=== PATIENT | female | born 1935 | race Caucasian/White ===

== ENCOUNTER → 2017-08-22 13:24 | Outpatient (CLI) | payer MEDICARE, OTHER, SELFPAY ==
[2017-08-22 15:45] LABS: Absolute Lymphocyte Count 1.92 X10^3/ul (0.83-4.51); Absolute Neutrophil Count 3.4 X10^3/uL (2.0-7.7); Basophil# 0.08 X10^3/uL; Basophil% 1.2 % (0-1); Eosinophil# 0.56 X10^3/uL; Eosinophils% 8.4 % (0-5); Hematocrit 36.3 % (37-47); Hemoglobin 12.1 g/dl (12.0-15.0); Lymphocyte # 1.92 X10^3/ul (4.0); Mean Corp Hgb Conc 33.3 g/gl (32-36); Mean Corpuscular Hgb 29.6 pg (27.0-32.0); Mean Corpuscular Volume 88.8 fL (81-99); Monocyte# 0.66 X10^3/uL; Neutrophil % 51.2 % (47-70); Platelet Count 184 K/mm3 (150-450); RBC Distribution Width CV 12.7 % (11.6-14.6); RBC Distribution Width SD 40.9 fl (35.1-43.9); Red Blood Count 4.09 M/mm3 (4.2-5.4); White Blood Count 6.6 K/mm3 (4.4-11.0)
[2017-08-22 15:53] LABS: ALB/GLOB Ratio 1.1 RATIO (0.9-2.4); AST(SGOT) 23 U/L (15-37); Alanine Aminotransfer ALT/SGPT 25 U/L (13-56); Albumin, Serum 3.5 g/dL (3.2-5.0); Alkaline Phosphatase 48 U/L (45-117); Anion Gap 7 (5-15); BUN 30 mg/dL (7-18); Calcium,Total 8.3 mg/dL (8.5-10.1); Chloride 101 mmol/L (98-107); Creatinine, Serum 1.25 mg/dL (0.55-1.02); EST Glomerular Filtration Rate 44 mL/min (>60); Est Glom Filt Rate - Afr Amer 53 mL/min (>60); Globulin 3.2 g/dL (2.2-4.2); Glucose 281 mg/dL (74-106); Potassium 4.1 mmol/L (3.5-5.1); Protein, Total 6.7 g/dL (6.4-8.2); Sodium Level 137 mmol/L (136-145)
[2017-08-22 16:12] LABS: POSITIVE COUNT NO; POSITIVE DIFFERENTIAL NO; POSITIVE MORPHOLOGY NO
== END ==
PROVIDERS: Family Provider Internal Medicine; PCP Internal Medicine; Visit Provider Internal Medicine Rheumatology
DX: L40.59 Other psoriatic arthropathy (principal); Z79.899 Other long term (current) drug therapy; L40.8 Other psoriasis; M15.9 Polyosteoarthritis, unspecified; M21.40 Flat foot [pes planus] (acquired), unspecified foot; K21.0 Gastro-esophageal reflux disease with esophagitis; F32.9 Major depressive disorder, single episode, unspecified; E78.5 Hyperlipidemia, unspecified; E11.9 Type 2 diabetes mellitus without complications; I25.10 Atherosclerotic heart disease of native coronary artery without angina pectoris; J45.909 Unspecified asthma, uncomplicated; I10 Essential (primary) hypertension
CPT/HCPCS: 36415; 80053; 85025

== ENCOUNTER 2017-11-11 09:09 | Emergency (ER) | payer MEDICARE, OTHER, SELFPAY ==
[2017-11-11 09:09] VITALS: BP 170/73; PULSE 60; RESP 16; TEMP 36.6; O2SAT 99; BMI 21.4
--- NOTE | 2017-11-11 09:40 | ED.VISSUMM ---
- ER Visit Summary Date of Service: 11/11/17 Chief Complaint: Acute on chronic lower back pain History of Present Illness: The patient is a 82 F 3 of both sciatica and spinal stenosis. She has never had back surgery. She also has a history of coronary artery disease with stents ?2, insulin-dependent diabetes and hypertension. She is on Plavix. Patient has chronic daily back pain. She went to her chiropractor earlier this week and was adjusted. Since she was feeling well even though she has pain on a daily basis but the pain just gotten worse since yesterday. She denies any falls or trauma. She denies any dysuria or hematuria. She denies any fever. She sets the same pain she always has just worse. She denies any new weakness or numbness in her lower extremities or upper extremities. She denies any bowel or bladder retention or incontinence. Eyes any abdominal pain. Physical Examination: Female no acute distress. Vital signs are stable and she is afebrile. She does not look septic or toxic. HEENT exam is unremarkable. Neck is nontender. No lymphadenopathy. Lungs clear to auscultation bilaterally. Heart regular rate and rhythm I do not appreciate any murmur at this time. Abdomen is soft and nontender. Normal bowel sounds. Nondistended. No pulsatile mass. She is moving all 4 extremities. They are neurovascularly intact. She has 5 out of 5 telemetry nurse strength in the upper extremities normal sensation. She has 5 out of 5 dorsi and plantar flexion of both lower extremities. They are equal and symmetrical. She has normal touch sensation of both medial thighs and lower legs bilaterally. She has negative straight leg raise bilaterally. Normal motor strength and sensation. There is no signs of acute sciatica. Back exam she is mild reproducible tenderness in the lumbar spine diffusely. There is no redness or warmth. There is no signs of trauma. No ecchymosis or bruising. Is no tenderness over either SI joint. Neurologically she is awake and alert with no focal motor or sensory deficits. Both the upper and lower extremities appear to be neurovascularly intact with no cauda equina or saddle anesthesia. Test Results: None Emergency Department Course and Treatment: Patient be treated with IM morphine and p.o. Zofran. Treatment Plan: Derik exam at 11 AM patient some pain relief. She denied her family had a long discussion. She is currently on tramadol and is running low on her prescription and I will give her additional tramadol prescription. And she will follow with her primary care physician this week. Disposition: discharge Impression: Acute on chronic low back pain History of spinal stenosis History of CAD with cardiac stents, insulin-dependent diabetes and hypertension This note was generated with [employer] dictation software. It may contain incorrect words, spelling, and punctuation that were not noted in review of the chart prior to signing ED Disposition - Plan for ED Patient: Chief Complaint: Back Referrals: Zulma Corral MD [Primary Care Provider] -
[2017-11-11] MEDS: morphine 8 MG/ML Syringe IV (09:45)
[2017-11-11] MEDS: Ondansetron ODT 4 MG Tablet PO (09:45)
--- NOTE | 2017-11-11 11:09 | ED.DEP ---
ED Disposition - Plan for ED Patient: Disposition: Home or Assisted Living Chief Complaint: Back Instructions: ED Neck Back Pain General Prescriptions: traMADol [Ultram] 50 mg PO Q4H PRN PRN #30 tab PRN Reason: Pain Referrals: Zulma Corral MD [Primary Care Provider] - As soon as possible Additional Instructions: Usual or tramadol as needed for pain you may use 1 pill up to every 4 hours as needed. Follow-up your primary care physician if pain not getting better. Return to the ER if you have significant leg weakness, fever or bowel or bladder incontinence.
[2017-11-11 11:30] VITALS: BP 184/66; PULSE 67; RESP 17; O2SAT 94; O2SAT 95
== END 2017-11-11 11:33 | disposition home or self-care (01) ==
PROVIDERS: Emergency Provider Emergency Medicine; Family Provider Internal Medicine; PCP Internal Medicine
DX: G89.29 Other chronic pain (principal); M54.5 Low back pain; I25.10 Atherosclerotic heart disease of native coronary artery without angina pectoris; Z95.5 Presence of coronary angioplasty implant and graft; E11.9 Type 2 diabetes mellitus without complications; I10 Essential (primary) hypertension; Z79.4 Long term (current) use of insulin
CPT/HCPCS: 99282

== ENCOUNTER → 2018-02-08 06:48 | Outpatient (CLI) | payer MEDICARE, OTHER, SELFPAY ==
[2018-02-08 15:31] LABS: Bedside Glucose 181 mg/dL (70-110)
--- NOTE | 2018-02-08 20:31 | STRESSREP ---
Stress Test Report Date: 02/08/2018 Procedure: Pharmacologic stress nuclear imaging study Indications: Chest pain; CAD; PCI Consent: Per the patient Procedure: The patient underwent pharmacologic (Regadenoson) evaluation with a peak heart rate of 91 beats per minute (66 predicted maximal heart rate) and a peak blood pressure of 160/84 mmHg. The baseline ECG demonstrated sinus bradycardia. The peak pharmacologic ECG demonstrated no obvious ECG changes. There were no cardiac dysrhythmias pretest, during pharmacologic infusion, or recovery. There was no complaint of chest discomfort during pharmacologic infusion or recovery. The examination was discontinued secondary to completion of protocol. Impression: 1. Pharmacologic (Regadenoson) evaluation 2. Peak pharmacologic ECG with no obvious ECG changes. 3. There were no cardiac dysrhythmias pretest, during pharmacologic infusion, or recovery 4. Nuclear images pending Myocardial perfusion imaging study: Technique: The patient was injected with 10.6 millicuries of technetium 99m Cardiolite and subsequently rest SPECT Cardiolite nuclear imaging was obtained in the horizontal long, vertical long, and short axis views. The patient underwent pharmacologic (Regadenoson) evaluation with a peak heart rate of 91 beats per minute (66 % percent predicted maximal heart rate) and a peak blood pressure of 160/84 mmHg. The patient was injected with 32.2 millicuries of technetium 99m Cardiolite and subsequently stress SPECT Cardiolite nuclear imaging was obtained in the horizontal long, vertical long, and short axis views. A gated Cardiolite study at peak stress was obtained. Interpretation: Rest and stress SPECT Cardiolite nuclear imaging status post realignment, normalization, and attenuation correction demonstrate at rest relative uniform tracer uptake. Status post stress there is a small area of diminished tracer uptake near the lateral apical segments. There are similar type findings on the resting and stress polar map images.. There is end systolic thickening and brightening. The gated Cardiolite study demonstrates myocardial thickening and inward wall motion. The reported LVEF is 80 %. Impression: 1. Rest and stress SPECT cardio light nuclear imaging demonstrate myocardial perfusion changes ventrally compatible with a small area of myocardial ischemia in the lateral apical distribution, however, the effects of physiologic apical thinning cannot necessarily be excluded. 2. The gated Cardiolite study reports an LVEF of 80 %. This note was generated with [employer] software. It may contain incorrect words, spelling, and punctuation that were not noted in checking the note before signing.
== END ==
PROVIDERS: Family Provider Internal Medicine; PCP Internal Medicine; Visit Provider Internal Medicine Cardiovascular Disease
DX: I25.10 Atherosclerotic heart disease of native coronary artery without angina pectoris (principal)
CPT/HCPCS: 78452; 82962; 93017; A9500; A4216; J2785

== ENCOUNTER → 2018-02-13 15:37 | Outpatient (CLI) | payer MEDICARE, OTHER, SELFPAY ==
--- NOTE | 2018-02-13 15:45 | RAD_ITS ---
STUDY: X-RAY CHEST REASON FOR EXAM: Female, 82 years old. Abnormal stress test TECHNIQUE: PA and lateral views of the chest. COMPARISON: Prior study of 04/10/2008 FINDINGS: The lungs are clear and expanded. There is no demonstrated pleural abnormality. Normal size heart. Normal mediastinum and jackeline. Normal visualized pulmonary arteries. There are calcified plaques of the thoracic aorta. There is a moderately severe thoracolumbar dextroscoliosis. There are diffuse degenerative changes of the visualized thoracolumbar spine. There are degenerative changes of the shoulder joints. There is no demonstrated abnormality of the visualized soft tissue structures of the upper abdomen. RAD/Chest PA and Lateral IMPRESSION: 1. Moderately severe thoracolumbar dextroscoliosis. Diffuse degenerative changes of the thoracic and lumbar spine. 2. Calcified plaques of the aortic arch. 3. Degenerative changes of the shoulder joints. Electronically Signed: Yoni Ricketts MD at 16:30 EDT , Service support ,
[2018-02-13 17:48] LABS: International Normalized Ratio 1.1; Prothrombin Time (Protime)PT. 13.7 SECONDS (11.7-14.9)
[2018-02-13 17:49] LABS: Hematocrit 39.2 % (37-47); Hemoglobin 13.3 g/dl (12.0-15.0); Mean Corp Hgb Conc 33.9 g/gl (32-36); Mean Corpuscular Hgb 30.2 pg (27.0-32.0); Mean Corpuscular Volume 89.1 fL (81-99); Mean Platelet Vol. 12.1 fl (6.2-12.0); Partial Thromboplast Time 34.4 Seconds (24.1-36.2); Platelet Count 196 K/mm3 (150-450); RBC Distribution Width CV 12.8 % (11.6-14.6); RBC Distribution Width SD 41.4 fl (35.1-43.9); White Blood Count 7.8 K/mm3 (4.4-11.0)
[2018-02-13 17:52] LABS: Scan Indicated on CBC? Y/N NO
[2018-02-13 18:10] LABS: Anion Gap 6 (5-15); BUN 22 mg/dL (7-18); BUN/Creat Ratio 22.8 RATIO (10-20); Calcium,Total 9.1 mg/dL (8.5-10.1); Chloride 103 mmol/L (98-107); Creatinine, Serum 0.97 mg/dL (0.55-1.02); EST Glomerular Filtration Rate 59 mL/min (>60); Est Glom Filt Rate - Afr Amer 71 mL/min (>60); Glucose 129 mg/dL (74-106); Potassium 4.3 mmol/L (3.5-5.1); Sodium Level 139 mmol/L (136-145)
== END ==
PROVIDERS: Family Provider Internal Medicine; PCP Internal Medicine; Referring Provider Internal Medicine Cardiovascular Disease; Visit Provider Internal Medicine Cardiovascular Disease
DX: I25.10 Atherosclerotic heart disease of native coronary artery without angina pectoris (principal); R94.39 Abnormal result of other cardiovascular function study; Z95.5 Presence of coronary angioplasty implant and graft
CPT/HCPCS: 36415; 71046; 80048; 85027; 85610; 85730

== ENCOUNTER 2018-02-21 07:49 | Day surgery (SDC) | payer MEDICARE, OTHER, SELFPAY ==
[2018-02-20 12:15] VITALS: BMI 21.2
--- NOTE | 2018-02-21 09:55 | HP.PCM_ITS ---
Problem List (1) Abnormal stress test Status: Acute (2) Carotid artery disease Status: Chronic (3) Presence of stent in coronary artery Status: Chronic Comment: PTCA/Stent of the prox LAD and 1st Diagonal 02/15/00 (4) Coronary artery anomaly Status: Acute (5) Carotid artery disease Status: Acute (6) Hyperlipidemia Status: Chronic Qualifiers: (7) Hypertension Status: Chronic Qualifiers: (8) Type 2 diabetes mellitus, with long-term current use of insulin Status: Chronic Qualifiers: History of Present Illness Date of Admission: 02/21/18 The patient is a 82 year old white female with a past cardiovascular history which has included underlying CAD, status post LAD PCI, status post diagonal branch PCI, congenital coronary anomaly, hyperlipidemia, hypertension, diabetes mellitus, who has been undergoing evaluation and care for concerns of underlying back discomfort which takes my breath away as well as other episodes of shortness of breath and dyspnea with exertion, and an abnormal pharmacologic stress nuclear imaging study. Since her last outpatient cardiovascular visit on 01/11/2018 she underwent a pharmacologic stress nuclear imaging study. Based upon the study she had what appeared to be a small area of myocardial ischemia in the lateral apical distribution although the effects of physiologic apical thinning could not be excluded. Her gated LVEF was reported at 80%. Based upon her cardiovascular history, her concerns, and her abnormal pharmacologic stress nuclear imaging study it was elected to proceed with further evaluation with diagnostic cardiac catheterization. This could be compared to her previous diagnostic cardiac catheterization reports from [facility] from January and March 2000. She has denied orthopnea or PND. There is been no ongoing issues of peripheral pitting edema. There has been no near syncope or syncope. [] Past Medical History Allergies/Adverse Reactions: Allergies metronidazole [From Flagyl] Allergy (Verified 02/20/18 12:17) Other Metronidazole HCl [From Flagyl] Allergy (Verified 02/20/18 12:17) Other oxycodone HCl [From OxyContin] Allergy (Verified 02/20/18 12:17) Other Home Medications: Ambulatory Orders Medication Instructions Recorded Clopidogrel Bisulfate [Plavix] 75 mg PO DAILY 08/23/13 simvastatin 40 mg tablet 40 mg PO QPM #30 tab 05/02/17 albuterol sulfate HFA 90 2 puff INHALATION Q6H 05/30/17 mcg/actuation aerosol inhaler calcium carbonate-vitamin D3 600 1 tab PO DAILY 05/30/17 mg-125 unit tablet fluticasone 50 mcg/actuation nasal 50 mcg INTRANASAL QDAY PRN 05/30/17 spray,suspension insulin aspart U- 100 100 unit/mL 5 unit SC TID ml 05/30/17 subcutaneous pen insulin syringe-needle U-100 half See Dose Instructions .ROUTE 05/30/17 unit marking 0.3 mL 31 gauge x .MEDSUPPLY #100 ea 10/04 multivitamin tablet 1 tab PO QDAY 05/30/17 nitroglycerin 0.4 mg sublingual 0.4 mg SUBLINGUAL Q5M PRN 05/30/17 tablet pantoprazole 40 mg tablet,delayed 40 mg PO QDAY 05/30/17 release tramadol 50 mg tablet 50 mg PO TID PRN tab 05/30/17 insulin detemir (U-100) 100 15 unit SC QPM 06/13/17 unit/mL (3 mL) subcutaneous pen isosorbide mononitrate ER 30 mg 15 mg PO QAM #45 tab 07/05/17 tablet,extended release 24 hr citalopram 10 mg tablet 5 mg PO DAILY tab 10/19/17 leflunomide 10 mg tablet 5 mg PO DAILY tab 10/19/17 losartan 100 mg tablet 50 mg PO BID tab 11/08/17 blood sugar diagnostic strips See Dose Instructions .ROUTE 12/26/17 .MEDSUPPLY #120 ea metoprolol succinate ER 25 mg 12.5 mg PO BID tab 01/11/18 tablet,extended release 24 hr aspirin 81 mg tablet,delayed 81 mg PO DAILY 02/12/18 release Past Medical History (Chronic Problems): Chronic Problems (Last Reviewed 01/11/18 @ 13:30 by Katelyn Gomez) Carotid artery disease (Chronic) Presence of stent in coronary artery (Chronic ~02/15/00) PTCA/Stent of the prox LAD and 1st Diagonal 02/15/00 Atherosclerotic heart disease of [place] coronary artery without angina pectoris (Chronic) PTCA/Stent of the prox LAD and 1st Diagonal 02/15/00 Hyperlipidemia (Chronic) Type 2 diabetes mellitus, with long-term current use of insulin (Chronic) Hypertension (Chronic) Surgical History: angioplasty, herniorrhaphy Lives: Alone Smoking Status: Former smoker Alcohol: None Drugs: None Review of Systems - Review of Systems General: Denies: Fever, Night Sweats, Fatigue Cardiovascular: Reports: Shortness of Breath. Denies: Chest Discomfort, Orthopnea, PND, Peripheral Edema, Palpitations, Lightheadedness, Dizziness, Near Syncope, Syncope Respiratory: Reports: Shortness of Breath. Denies: Cough, Sputum Production, Hemoptysis Gastrointestinal: Denies: Hematemesis, Hematochezia, Melena Genitourinary: Denies: Dysuria, Hematuria Skin: Denies: Rash Subjectve: Is a pleasant 82-year-old white female who appears to be resting comfortably in no acute distress. Objective: Weight: 105 lb Body Mass Index (BMI) 21.2 General: Awake, Alert, Oriented x 3, Cooperative, No Acute Distress HEENT: Atraumatic, Normocephalic, PERRL, EOMI, Sclera Non Icteric Oral: Moist Mucosa Neck: Supple, Good ROM, No JVD Lungs: Clear to auscultation Cardiovascular: Regular Rhythm, Normal S1, Normal S2 Abdomen: Bowel Sounds Present, Soft, Non Tender Extremities: No Cyanosis, No Clubbing, No edema Neurological: No Focal Motor or Sensory Deficit Psych/Mental Status: Appropriate, Normal Affect VTE Information - Inpt Only VTE Present on Admission: No VTE Mechan Device Prophylaxis: None VTE Pharm Prophylaxis ordered?: No Reason prophylaxis not ordered:: Procedure Not Indicated - The patient is undergoing outpatient evaluation for her cardiovascular disease with diagnostic cardiac catheterization. Depending upon the patient's clinical course and findings consideration will be given as to whether she is a candidate for venous thromboembolism prophylaxis. Rhythm: Sinus rhythm EKG: Sinus rhythm; leftward axis; poor R wave progression; nonspecific wave abnormality ECHO: 11/12/2007: Technically limited study: Normal left ventricular size and systolic function: LVEF 65%: Mild stage I diastolic dysfunction: Moderate concentric LVH: Normal pulmonary artery pressure: Unchanged from 08/08/2006 Stress Test: As noted above Cardiac Cath: 03/24/2000: [facility]: Single-vessel disease with normal function of the left ventricle; stented segments of the diagonal branch enlarged given the appearance of a greater degree of stenosis in the diagonal just prior to the stent with the percent stenosis likely less than 50%; additional comments that the LAD proximal stented segment with no evidence of restenosis-plaque disease- nonobstructive; diagonal branch #1 lesion 25-50% luminal narrowing-stented segment-minimal plaque buildup; LAD after septal emergency medicine physician assistant with 25% stenosis, mid 65% [id number]% luminal narrowing-intramyocardial bridging segment; RCA with no angiographically definable disease PCI: 02/15/2000: [facility]: LAD PCI/stent and diagonal branch PCI CXR: 02/13/2018: IMPRESSION: 1. Moderately severe thoracolumbar dextroscoliosis. Diffuse degenerative changes of the thoracic and lumbar spine. 2. Calcified plaques of the aortic arch. 3. Degenerative changes of the shoulder joints. Assessment/Plan 1. Abnormal stress test The patient does have an abnormal pharmacologic stress test. This, in conjunc tion with her history, her concerning symptoms, it was elected to continue medical management and proceed with further evaluation with diagnostic cardiac catheterization. The procedure and risks have been discussed with her and she is agreeable to this approach. 2. CAD status post remote LAD PTCA/stent/diagonal branch PCI The patients removed procedure was performed at [facility] in January and March 2000. She has not required invasive evaluation care since that time. She has continued medical management and follow-up. However based upon her ongoing concerns and objective findings she will proceed with further evaluation with diagnostic cardiac catheterization. 3. Congenital coronary anomaly Based upon the previous cardiac catheterization reports there was concern the patient had congenital coronary anomaly with AV fistula. She did not require additional evaluation or care. 4. Peripheral arterial occlusive disease/carotid artery disease Patient does have an element of carotid artery disease. She has been followed noninvasively with carotid artery duplex studies. She is continued medical management. 5. Hyperlipidemia The patient will continue risk factor modification and medical management. 6. Hypertension The patient's blood pressures been followed. Her medications have been adjusted over time to assist with blood pressure control. 7. Diabetes mellitus The patient will continue evaluation care per her primary care physician. This note was generated with [employer] software. It may contain incorrect words, spelling, and punctuation that were not noted in checking the note before signing.
--- NOTE | 2018-02-22 10:41 | CL.D_ITS ---
Patient Name: ESTUARDO MOODY Study Date: 02/21/2018 Performing: Christopher Doty MD Ht: 59 inches 150 cm : 1935 Wt: 106 lbs 48 kg Age: 82 Gender: female BSA: 1.41 PROCEDURE(S) PERFORMED HC11-JGU/COR/LV CLINICAL PROFILE AND INDICATIONS Indications: Suspected CAD Heart Failure: None Stress/Imaging Stress Test w/SPECT MPI: Yes Result: PositiveStress Test with SPECT MPI: Positive Angina Classification Anginal Classification w/in 2 Weeks: CCS III CAD Presentations: Other: chest pain; shortness of breath; fatigue CONCLUSIONS Elevated Left Ventricular End Diastolic Pressure Normal LV size, wall motion,and systolic function LVEF: by LV gram 55 % Congenital Coronary Anomaly: AV Fistulas RECOMMENDATIONS Risk factor modification Medical therapy Staged percutaneous intervention DESCRIPTION OF PROCEDURE The patient arrived to the procedure lab. The risks and benefits of the procedure as well as a full d escription of our services here and current unavailability of surgical backup were fully explained to the patient and/or their significant other prior to the catheterization. The Timeout was completed, verifying the correct patient and procedure. The patient's procedural site was prepped and draped in the usual fashion. Local anesthetic was given subcutaneously to right groin region with Lidocaine 2%. Using a modified Seldinger technique, arterial access was obtained via the right femoral artery, a 4 Fr sheath was inserted Left Coronary Artery selective angiography was performed in multiple views us ing a 4 Fr. JL5 catheter. Right Coronary Artery selective angiography was then performed in multiple views using a 4 Fr. 3DRC catheter. Left Ventriculography was performed in CORDOVA projection using a 4 Fr . Pigtail catheter. LV to AO pullback pressures were then recorded.The arterial sheath was pulled and manual compression applied until hemostasis is achieved. CORONARY ANGIOGRAPHY DOMINANCE: Co- Dominant LEFT HEART ASSESSMENT Left Ventricular Ejection Fraction: by LV Gram 55 % Normal LV wall motion Elevated Left Ventricular End Diastolic Pressure LVEDP: 29 mmHg LEFT MAIN: Angiographically normal LEFT ANTERIOR DECENDING ARTERY: PROX LAD: Previously placed stent is patent with mild luminal irregularities MID LAD: 85 % Stenosis DISTAL LAD: 75 % Stenosis DIAGONAL 1: Proximal - Previously placed stent is patent with mild luminal irregularities CIRCUMFLEX ARTERY: Mild luminal irregularities OM 1: Proximal - Eccentric: 50 % Stenosis, Mid - 50-75 % Stenosis RIGHT CORONARY ARTERY: Mild luminal irregularities AORTIC ROOT: Angiographically normal COMPLICATIONS No Complications PROCEDURE MEDICATIONS Versed 0.5 mg IV Versed 0.5 mg IV Oxygen: 2 L/min via nasal cannula Baby Aspirin (81mg) 1 Tabs PO @ 02/21/2018 08:41:21 Labetalol 5 mg 02/21/2018 08:41:31 Labetalol 5 mg 02/21/2018 08:41:31 Plavix 75 mg PO 02/21/2018 08:41:31 SUMMARY OF HEMODYNAMIC DATA Time AIR REST ECG 08:37:20 ECG 10:30:21 AO 158/62 (99) SA 10:46:10 LV 179/22, 42 10:53:39 LV 184/22, 29 10:53:46 AO 151/83 (116) 10:54:43 LVp 198/0, 21 10:55:37 AOp 196/72 (120) 10:55:42 Signed By Christopher Doty MD On 02/21/2018 18:31:23 Christopher Doty MD
== END 2018-02-21 16:13 | disposition home or self-care (01) ==
LOC: CLSP 07:50
PROVIDERS: Family Provider Internal Medicine; PCP Internal Medicine; Referring Provider Internal Medicine Cardiovascular Disease; Visit Provider Internal Medicine Cardiovascular Disease
DX: R94.39 Abnormal result of other cardiovascular function study (principal); E78.5 Hyperlipidemia, unspecified; I10 Essential (primary) hypertension; E11.9 Type 2 diabetes mellitus without complications; Z95.5 Presence of coronary angioplasty implant and graft; I25.10 Atherosclerotic heart disease of native coronary artery without angina pectoris; Z87.891 Personal history of nicotine dependence; Z79.4 Long term (current) use of insulin; I77.9 Disorder of arteries and arterioles, unspecified
CPT/HCPCS: 93458; 99152; 99153; J7040; C1769; C1894; Q9967

== ENCOUNTER → 2018-02-23 14:33 | Outpatient (CLI) | payer MEDICARE, OTHER, SELFPAY ==
[2018-02-23 15:00] LABS: Hematocrit 38.9 % (37-47); Hemoglobin 12.7 g/dl (12.0-15.0); Mean Corp Hgb Conc 32.6 g/gl (32-36); Mean Corpuscular Hgb 28.9 pg (27.0-32.0); Mean Corpuscular Volume 88.6 fL (81-99); Mean Platelet Vol. 10.9 fl (6.2-12.0); Platelet Count 194 K/mm3 (150-450); RBC Distribution Width CV 12.9 % (11.6-14.6); RBC Distribution Width SD 41.3 fl (35.1-43.9); Red Blood Count 4.39 M/mm3 (4.2-5.4); Scan Indicated on CBC? Y/N NO; White Blood Count 8.5 K/mm3 (4.4-11.0)
[2018-02-23 15:07] LABS: International Normalized Ratio 1.1; Prothrombin Time (Protime)PT. 14.2 SECONDS (11.7-14.9)
[2018-02-23 15:21] LABS: Anion Gap 6 (5-15); BUN 28 mg/dL (7-18); BUN/Creat Ratio 21.5 RATIO (10-20); Calcium,Total 8.8 mg/dL (8.5-10.1); Chloride 99 mmol/L (98-107); EST Glomerular Filtration Rate 42 mL/min (>60); Est Glom Filt Rate - Afr Amer 50 mL/min (>60); Glucose 228 mg/dL (74-106); Potassium 4.5 mmol/L (3.5-5.1); Sodium Level 134 mmol/L (136-145)
== END ==
PROVIDERS: Family Provider Internal Medicine; PCP Internal Medicine; Referring Provider Internal Medicine Cardiovascular Disease; Visit Provider Internal Medicine Cardiovascular Disease
DX: I25.10 Atherosclerotic heart disease of native coronary artery without angina pectoris (principal)
CPT/HCPCS: 36415; 80048; 85027; 85610

== ENCOUNTER 2018-02-26 10:33 | Inpatient (IN) | payer MEDICARE, OTHER, SELFPAY ==
[2018-02-26] VITALS (9 sets, daily range): BP systolic 142–188; BP diastolic 66–76; PULSE 49–76; RESP 11–16; TEMP 36.5–36.7; O2SAT 94–97; BMI 20.5
--- NOTE | 2018-02-26 10:52 | EKG12_ITS ---
Test Reason : Blood Pressure : / mmHG Vent. Rate : 056 BPM Atrial Rate : 056 BPM P-R Int : 156 ms QRS Dur : 074 ms QT Int : 406 ms P-R-T Axes : 041 -18 030 degrees QTc Int : 391 ms Sinus bradycardia Septal infarct , age undetermined T wave abnormality, consider anterolateral ischemia Abnormal ECG Confirmed by JUAN ALLRED, ROSA ([id number]), editorial specialist DONTAE MENDOZA ([id number]) on 03/01/2018 1:44:58 PM Referred By: Galo Ortiz Confirmed By:ROSA MARTINEZ MD
--- NOTE | 2018-02-26 10:55 | RAD_ITS ---
STUDY: X-RAY CHEST REASON FOR EXAM: Female, 82 years old. Chest pain TECHNIQUE: Portable chest COMPARISON: 02/13/2018. FINDINGS: Hyperlucency and hyperinflation of the lungs consistent with underlying COPD. Normal cardiomediastinal silhouette, jackeline and pleural margins. No acute osseous or upper abdominal process. Osteopenia, scoliosis and multilevel spondylosis. RAD/Chest 1 View (Portable) IMPRESSION: Stable chest compared to prior imaging. 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 Electronically Signed: Praful Cadena, at 11:23 EDT Tel , Service support ,
--- NOTE | 2018-02-26 11:05 | ED.VISSUMM ---
- ER Visit Summary Date of Service: 02/26/18 Chief Complaint: Chest pain, epigastric pain History of Present Illness: The patient is a 82 F with known history of coronary artery disease. Patient is scheduled to have 2 stents placed this week. She has had problems with shortness of breath. She states she had occasional epigastric pain that has worsened over the past couple of days. It is worse in the morning and then seems to improve throughout the day. She did take tramadol prior to arrival denies any pain currently. Patient does states she has severe spinal stenosis and wakes up with significant back pain in the morning as well. She feels nauseated but is not sure if it is because of her heart, stomach, or her back. Physical Examination: Blood pressure is 142/76, temperature 98.1, heart rate 63, respiratory rate 15, socks 96% on room air. Patient is sitting upright in bed no acute distress. Head neck examination is unremarkable. Heart is regular rate and rhythm. Lung sounds are clear. Abdomen is soft with focal tenderness in the epigastric region. There is no guarding or rebound. Active bowel sounds are noted. Test Results: EKG is sinus bradycardia at 56 bpm. There are mild T inversions in the lateral leads that looks grossly unchanged compared to prior. CBC is unremarkable. Chemistry studies reveal glucose of 286, BUN 25, creatinine 1.05. LFTs and lipase are normal. Troponin is less than 0.015. Chest x-ray shows COPD changes are stable from prior. Emergency Department Course and Treatment: Patient was given 3 baby aspirin here as she had only taken one this morning. She has remained pain-free throughout her ER stay. I spoke with Dr. Pritchard as well as Dr. Doty. I spoke with hospitalist. Patient will be admitted. Treatment Plan: [] Disposition: Admit Impression: 1. Epigastric pain 2. Coronary artery disease This note was generated with [employer] dictation software. It may contain incorrect words, spelling, and punctuation that were not noted in review of the chart prior to signing ED Disposition - Plan for ED Patient: Chief Complaint: Chest Pain Referrals: Zulma Corral MD [Primary Care Provider] -
[2018-02-26 11:10] LABS: Absolute Lymphocyte Count 1.24 X10^3/ul (0.83-4.51); Absolute Neutrophil Count 3.9 X10^3/uL (2.0-7.7); Basophil# 0.05 X10^3/uL; Basophil% 0.8 % (0-1); Eosinophils% 8.1 % (0-5); Hemoglobin 12.4 g/dl (12.0-15.0); Lymphocyte # 1.24 X10^3/ul (4.0); Mean Corp Hgb Conc 33.5 g/gl (32-36); Mean Corpuscular Hgb 29.4 pg (27.0-32.0); Mean Corpuscular Volume 87.7 fL (81-99); Mean Platelet Vol. 10.9 fl (6.2-12.0); Monocyte# 0.53 X10^3/uL; Monocyte% 8.6 % (0-10); Neutrophil # 3.86 X10^3/uL (2.7-7.7); Neutrophil % 62.3 % (47-70); POSITIVE COUNT NO; POSITIVE DIFFERENTIAL NO; POSITIVE MORPHOLOGY NO; Platelet Count 173 K/mm3 (150-450); RBC Distribution Width CV 12.7 % (11.6-14.6); RBC Distribution Width SD 40.5 fl (35.1-43.9); Red Blood Count 4.22 M/mm3 (4.2-5.4); White Blood Count 6.2 K/mm3 (4.4-11.0)
[2018-02-26] MEDS: 0.9% Normal Saline 1,000 ML 15 ML IV (11:11)
[2018-02-26] MEDS: Aspirin 81 MG TAB.CHEW 243 MG PO (11:11)
[2018-02-26 11:29] LABS: AST(SGOT) 16 U/L (15-37); Alanine Aminotransfer ALT/SGPT 17 U/L (13-56); Albumin, Serum 3.3 g/dL (3.2-5.0); Alkaline Phosphatase 50 U/L (45-117); Anion Gap 7 (5-15); BUN 25 mg/dL (7-18); BUN/Creat Ratio 23.8 RATIO (10-20); Bilirubin, Direct 0.14 mg/dL (0.00-0.30); Calcium,Total 9.5 mg/dL (8.5-10.1); Chloride 100 mmol/L (98-107); Creatinine, Serum 1.05 mg/dL (0.55-1.02); EST Glomerular Filtration Rate 53 mL/min (>60); Est Glom Filt Rate - Afr Amer 64 mL/min (>60); Estimated Creatinine Clearance 29.48 ml/min; Globulin 3.6 g/dL (2.2-4.2); Glucose 286 mg/dL (74-106); Lipase 126 U/L (73-393); Potassium 4.5 mmol/L (3.5-5.1); Protein, Total 6.9 g/dL (6.4-8.2); Sodium Level 135 mmol/L (136-145)
--- NOTE | 2018-02-26 12:47 | EKG12_ITS ---
Test Reason : ADMISSION EKG Blood Pressure : / mmHG Vent. Rate : 055 BPM Atrial Rate : 055 BPM P-R Int : 162 ms QRS Dur : 078 ms QT Int : 454 ms P-R-T Axes : 008 -12 038 degrees QTc Int : 434 ms Sinus bradycardia Septal infarct , age undetermined T wave abnormality, consider anterolateral ischemia Abnormal ECG When compared with ECG of 26-FEB-2018 10:38, MANUAL COMPARISON REQUIRED, DATA IS UNCONFIRMED Confirmed by TENZIN ALLRED, ALEXANDRI[place] ([id number]), digital editor DONTAE MENDOZA ([id number]) on 02/28/2018 3:36:38 PM Referred By: Galo Ortiz Confirmed By:ALEXANDRIA DAVE MD
[2018-02-26 13:50] LABS: Bedside Glucose 215 mg/dL (70-110)
[2018-02-26] MEDS: Insulin Lispro 100 UNIT/ML INSULN.PEN SC ×3 (14:43→21:40)
[2018-02-26 18:11] LABS: Bedside Glucose 270 mg/dL (70-110)
--- NOTE | 2018-02-26 18:52 | PCM.CONS.C ---
Problem List (1) CAD (coronary artery disease) Status: Acute Qualifiers: Coronary Disease-Associated Artery/Lesion type: [place] artery [place] vs. transplanted heart: [place] heart Associated angina: with unspecified angina Qualified Code(s): I25.119 - Atherosclerotic heart disease of [place] coronary artery with unspecified angina pectoris (2) Presence of stent in coronary artery Status: Chronic Comment: PTCA/Stent of the prox LAD and 1st Diagonal 02/15/00 (3) Hyperlipidemia Status: Chronic Qualifiers: (4) Hypertension Status: Chronic Qualifiers: (5) Type 2 diabetes mellitus, with long-term current use of insulin Status: Chronic Qualifiers: Reason for Consult Date of Consultation: 02/26/18 History of Present Illness: The patient is a 82 year old white female with a past cardiovascular history of underlying CAD, status post LAD PCI-remote, status post diagonal branch PCI-remote, congenital coronary anomaly with AV fistula, hyperlipidemia, hypertension, diabetes mellitus, who has been undergoing outpatient cardiovascular evaluation care based on concerns of underlying back discomfort which she previously reported as takes my breath away as well as other episodes of chest/epigastric discomfort, shortness of breath, dyspnea with exertion, with findings of an abnormal pharmacologic stress nuclear imaging study and subsequently findings during repeat cardiac catheterization of progression of underlying [place] vessel disease following the LAD and OM system who is pending staged percutaneous intervention who presents today for concerns of chest/epigastric discomfort. She states while waiting for her staged intervention she is noted resting chest/epigastric discomfort. She felt this was reminiscent of symptoms she experienced prior to her initial diagnosis and PCI. She used nitroglycerin sublingual with partial relief. As her symptoms persisted she was brought by her family to the hospital for further evaluation. She notes she has had tenderness in the epigastric area. She is denied radiation of her symptoms. She has had associated nausea. She has had continued shortness of breath/dyspnea with exertion. She has denied orthopnea, PND, peripheral pitting edema, near syncope and syncope. He was brought into the hospital. She has had troponin I levels which have been negative. Her ECG is demonstrated sinus rhythm with poor R wave progression with septal [place] pattern of indeterminate age cannot be excluded and T wave abnormality potentially compatible with myocardial ischemia in the anterolateral distribution. [] Past Medical History Allergies/Adverse Reactions: Allergies metronidazole [From Flagyl] Allergy (Verified 02/20/18 12:17) Other Metronidazole HCl [From Flagyl] Allergy (Verified 02/20/18 12:17) Other oxycodone HCl [From OxyContin] Allergy (Verified 02/20/18 12:17) Other Home Medications: Ambulatory Orders Medication Instructions Recorded Clopidogrel Bisulfate [Plavix] 75 mg PO DAILY 08/23/13 simvastatin 40 mg tablet 40 mg PO QPM #30 tab 05/02/17 albuterol sulfate HFA 90 2 puff INHALATION Q6H 05/30/17 mcg/actuation aerosol inhaler calcium carbonate-vitamin D3 600 1 tab PO DAILY 05/30/17 mg-125 unit tablet fluticasone 50 mcg/actuation nasal 50 mcg INTRANASAL QDAY PRN 05/30/17 spray,suspension insulin aspart U- 100 100 unit/mL 5 unit SC TID ml 05/30/17 subcutaneous pen insulin syringe-needle U-100 half See Dose Instructions .ROUTE 05/30/17 unit marking 0.3 mL 31 gauge x .MEDSUPPLY #100 ea 10/04 multivitamin tablet 1 tab PO QDAY 05/30/17 pantoprazole 40 mg tablet,delayed 40 mg PO QDAY 05/30/17 release tramadol 50 mg tablet 50 mg PO TID PRN tab 05/30/17 insulin detemir (U-100) 100 15 unit SC QPM 06/13/17 unit/mL (3 mL) subcutaneous pen citalopram 10 mg tablet 5 mg PO DAILY tab 10/19/17 leflunomide 10 mg tablet 5 mg PO DAILY tab 10/19/17 losartan 100 mg tablet 50 mg PO BID tab 11/08/17 blood sugar diagnostic strips See Dose Instructions .ROUTE 12/26/17 .MEDSUPPLY #120 ea metoprolol succinate ER 25 mg 12.5 mg PO BID tab 01/11/18 tablet,extended release 24 hr aspirin 81 mg tablet,delayed 81 mg PO DAILY 02/12/18 release isosorbide mononitrate ER 30 mg 30 mg PO QAM #90 tab 02/26/18 tablet,extended release 24 hr nitroglycerin 0.4 mg sublingual 0.4 mg SUBLINGUAL Q5M PRN #25 tab 02/26/18 tablet Past Medical History (Chronic Problems): Chronic Problems (Last Reviewed 01/11/18 @ 13:30 by Katelyn Gomez) Carotid artery disease (Chronic) Presence of stent in coronary artery (Chronic ~02/15/00) PTCA/Stent of the prox LAD and 1st Diagonal 02/15/00 Hyperlipidemia (Chronic) Type 2 diabetes mellitus, with long-term current use of insulin (Chronic) Hypertension (Chronic) Surgical History: angioplasty, herniorrhaphy Lives: Alone Smoking Status: Former smoker Alcohol: None Drugs: None Review of Systems - Review of Systems General: Denies: Fever, Night Sweats, Fatigue Cardiovascular: Reports: Chest Discomfort, Chest Discomfort at Rest, Shortness of Breath, Shortness of Breath with Exertion. Denies: Orthopnea, PND, Peripheral Edema, Palpitations, Lightheadedness, Dizziness, Near Syncope, Syncope Respiratory: Reports: Shortness of Breath. Denies: Cough, Sputum Production, Hemoptysis Gastrointestinal: Reports: Epigastric Discomfort, Nausea. Denies: Hematemesis, Hematochezia, Melena Genitourinary: Denies: Dysuria, Hematuria Skin: Denies: Rash Subjectve: This is an 82-year-old white female who appears to be resting comfortably at the moment in no acute distress. Objective: Vital Signs Temp Pulse Resp BP Pulse Ox 97.7 F L 60 16 188/75 H 94 02/26/18 13:07 02/26/18 15:19 02/26/18 13:07 02/26/18 13:07 02/26/18 13:07 Oxygen Delivery Method Room Air Weight: 99 lb 3.328 oz Body Mass Index (BMI) 20.0 Intake and Output for Last 24 Hours 02/24/18 02/25/18 02/26/18 23:59 23:59 23:59 Intake Total 774 / 774 Balance 774 / 774 General: Awake, Alert, Oriented x 3, Cooperative, No Acute Distress HEENT: Atraumatic, Normocephalic, PERRL, EOMI, Sclera Non Icteric Oral: Moist Mucosa Neck: Supple, Good ROM, No JVD Lungs: Clear to auscultation Cardiovascular: Regular Rhythm, Normal S1, Normal S2 Abdomen: Bowel Sounds Present, Soft, - - Positive epigastric tenderness Extremities: No Cyanosis, No Clubbing, No edema Neurological: No Focal Motor or Sensory Deficit Psych/Mental Status: Appropriate, Normal Affect 02/26/18 11:05: WBC 6.2, RBC 4.22, Hgb 12.4, Hct 37.0, MCV 87.7, MCH 29.4, MCHC 33.5, RDW 12.7, RDW Differential 40.5, Plt Count 173, MPV 10.9, Immature Gran % (Auto) 0.200, Neut % (Auto) 62.3, Lymph % (Auto) 20.0, [place] % (Auto) 8.6, Eos % (Auto) 8.1 H, Baso % (Auto) 0.8, Absolute Neuts (auto) 3.9, Total Counted Not Reportable 02/26/18 11:05: Sodium 135 L, Potassium 4.5, Chloride 100, Carbon Dioxide 28.0, Anion Gap 7, BUN 25 H, Creatinine 1.05 H, Est GFR (MDRD) Af Amer 64, Est GFR (MDRD) Non-Af 53 L, BUN/Creatinine Ratio 23.8 H, Glucose 286 H, Calcium 9.5, Total Bilirubin 0.50, Direct Bilirubin 0.14, Troponin I < 0.015 02/26/18 14:05: Troponin I < 0.015 02/26/18 17:35: Troponin I < 0.015 Rhythm: Sinus rhythm EKG: As noted above ECHO: 11/12/2007: Technically limited study: Normal left ventricular size and systolic function with an LVEF of 65%; decreased diastolic compliance; moderate concentric LVH; normal pulmonary pressure; unchanged compared from a previous study of 08/08/2006 Stress Test: 02/08/2018 Impression: 1. Rest and stress SPECT cardio light nuclear imaging demonstrate myocardial perfusion changes potentially compatible with a small area of myocardial ischemia in the lateral apical distribution, however, the effects of physiologic apical thinning cannot necessarily be excluded. 2. The gated Cardiolite study reports an LVEF of 80 %. Cardiac Cath: 02/21/2018 CORONARY ANGIOGRAPHY DOMINANCE: Co- Dominant LEFT HEART ASSESSMENT Left Ventricular Ejection Fraction: by LV Gram 55 % Normal LV wall motion Elevated Left Ventricular End Diastolic Pressure LVEDP: 29 mmHg LEFT MAIN: Angiographically normal LEFT ANTERIOR DECENDING ARTERY: PROX LAD: Previously placed stent is patent with mild luminal irregularities MID LAD: 85 % Stenosis DISTAL LAD: 75 % Stenosis DIAGONAL 1: Proximal - Previously placed stent is patent with mild luminal irregularities CIRCUMFLEX ARTERY: Mild luminal irregularities OM 1: Proximal - Eccentric: 50 % Stenosis, Mid - 50-75 % Stenosis RIGHT CORONARY ARTERY: Mild luminal irregularities AORTIC ROOT: Angiographically normal PCI: 03/24/2000: [facility]: Single-vessel disease with normal function of the left ventricle; stented segments of the diagonal branch enlarged given the appearance of a greater degree of stenosis in the diagonal just prior to the stent with the percent stenosis likely less than 50%; additional comments that the LAD proximal stented segment with no evidence of restenosis-plaque disease-nonobstructive; diagonal branch #1 lesion of 25-50% luminal narrowing-stented segment-minimal plaque buildup; 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 Chest pain: Angina pectoris unspecified The patient has underlying CAD as previously defined. She is pending an upcoming staged PCI procedure to the LAD and possible OM distribution. In the meantime she has had recurrent discomfort which she considers similar to discomfort she had with her initial coronary artery disease diagnosis. However the same time she also has epigastric discomfort which is tender to palpation raising concerns of the possibility of a non-CAD etiology as well. She is being monitored. Her initial cardiac enzymes are negative. Her ECG is is as noted above. She will continue medical management. She will be considered to proceed with her staged PCI procedure barring unforeseen events. She will also need to be monitored for noncardiac etiologies of her discomfort. 2. CAD status post LAD/diagonal branch PCI-1999 Again she is undergone evaluation for her aforementioned concerns. This has included noninvasive and invasive evaluation. She was found to have progression of disease in the LAD and OM distributions. At the present time she will continue to be followed. She will continue medical management. She will continue with plans for an upcoming staged PCI procedure to the LAD and possibly the OM distribution. In the interim she is receiving IV hydration to assist with any concerns of renal insufficiency. 3. Congenital coronary anomaly She has been found in the past to have congenital coronary anomalies concerning for AV fistula. She has not required additional invasive/interventional/surgical evaluation or care for this. 4. Hyperlipidemia She will continue lipid-lowering therapy as deemed appropriate. 5. Hypertension Her blood pressures will be followed. She will continue medical management. 6. Diabetes mellitus She will continue under the care of internal medicine for this. 7. Epigastric discomfort Again she will continue evaluation care for noncardiac etiologies of her epigastric discomfort and tenderness to palpation. Her H&H is being followed for any obvious evidence of significant decline that may indicate a gastrointestinal bleeding process. In the interim she is on a PPI. Comment: The patient's case was discussed and reviewed with the patient and Dr. Atkins. This note was generated with [employer] dictation software. It may contain incorrect words, spelling, and punctuation that were not noted in checking the note before signing.
--- NOTE | 2018-02-26 20:26 | HP.PCM_ITS ---
Problem List (1) Epigastric pain Status: Acute (2) Chest pain Status: Acute Qualifiers: Chest pain type: precordial pain Qualified Code(s): R07.2 - Precordial pain History of Present Illness Date of Admission: 02/26/18 Chief Complaint: Precordial chest pain, epigastric pain The patient is a 82 year old F who was seen in the emergency room at [facility] with a chief complaint of epigastric and lower precordial chest pain which occurred today and lasted approximately 30 minutes in duration. Patient stated that her chest pain was resolved before she came to the emergency room, patient stated that she took an Ultram for this discomfort-she has had this discomfort before and it was relieved by Ultram. Patient's daughter became concerned and advised patient to come to the emergency room for evaluation. Patient recently had a cardiac catheterization which showed occlusive coronary disease and she was being prepared for a scheduled heart catheterization with intervention using stents. Due to the fact that the patient's creatinine was elevated earlier this month, it was decided to schedule this second catheterization and intervention as an outpatient with the hope that her renal function would improve. She is scheduled to have this catheterization and intervention this week. Workup in the emergency room included a chest x-ray which showed no acute disease, EKG showed no evidence of acute ST elevation, patient's troponin was unremarkable, patient's creatinine was improved as compared with her last creatinine that was done earlier in the month. Glucose was elevated at 286. It is unknown at this time whether the patient's symptoms were secondary to coronary artery disease with angina or whether the complaints she exhibited today are due to musculoskeletal reasons. Due to the fact she has known occlusive coronary disease, it was felt prudent to admit the patient to PCU and cycle her enzymes and perform her heart catheterization tomorrow morning with scheduled intervention. Past Medical History Past Medical History (Chronic Problems): Chronic Problems (Last Reviewed 01/11/18 @ 13:30 by Katelyn Gomez) Carotid artery disease (Chronic) Presence of stent in coronary artery (Chronic ~02/15/00) PTCA/Stent of the prox LAD and 1st Diagonal 02/15/00 Hyperlipidemia (Chronic) Type 2 diabetes mellitus, with long-term current use of insulin (Chronic) Hypertension (Chronic) Medical History: Medical History (Last Reviewed 01/11/18 @ 13:30 by Katelyn Gomez) Carotid artery disease (Chronic) I77.9 Coronary artery anomaly (Acute) Q24.5 Hyperlipidemia (Chronic) E78.5 Type 2 diabetes mellitus, with long-term current use of insulin (Chronic) E11.9, Z79.4 Hypertension (Chronic) I10 Arteriovenous fistula, acquired, 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 Cerebral artery occlusion I66.9 Sleep apnea G47.30 TIA (transient ischemic attack) G45.9 COPD (chronic obstructive pulmonary disease) J44.9 Spinal stenosis M48.00 Allergies metronidazole [From Flagyl] Allergy (Verified 02/20/18 12:17) Other Metronidazole HCl [From Flagyl] Allergy (Verified 02/20/18 12:17) Other oxycodone HCl [From OxyContin] Allergy (Verified 02/20/18 12:17) Other Home Medications: Ambulatory Orders Medication Instructions Recorded Clopidogrel Bisulfate [Plavix] 75 mg PO DAILY 08/23/13 simvastatin 40 mg tablet 40 mg PO QPM #30 tab 05/02/17 albuterol sulfate HFA 90 2 puff INHALATION Q6H 05/30/17 mcg/actuation aerosol inhaler calcium carbonate-vitamin D3 600 1 tab PO DAILY 05/30/17 mg-125 unit tablet fluticasone 50 mcg/actuation nasal 50 mcg INTRANASAL QDAY PRN 05/30/17 spray,suspension insulin aspart U- 100 100 unit/mL 5 unit SC TID ml 05/30/17 subcutaneous pen insulin syringe-needle U-100 half See Dose Instructions .ROUTE 05/30/17 unit marking 0.3 mL 31 gauge x .MEDSUPPLY #100 ea 10/04 multivitamin tablet 1 tab PO QDAY 05/30/17 pantoprazole 40 mg tablet,delayed 40 mg PO QDAY 05/30/17 release tramadol 50 mg tablet 50 mg PO TID PRN tab 05/30/17 insulin detemir (U-100) 100 15 unit SC QPM 06/13/17 unit/mL (3 mL) subcutaneous pen citalopram 10 mg tablet 5 mg PO DAILY tab 10/19/17 leflunomide 10 mg tablet 5 mg PO DAILY tab 10/19/17 losartan 100 mg tablet 50 mg PO BID tab 11/08/17 blood sugar diagnostic strips See Dose Instructions .ROUTE 12/26/17 .MEDSUPPLY #120 ea metoprolol succinate ER 25 mg 12.5 mg PO BID tab 01/11/18 tablet,extended release 24 hr aspirin 81 mg tablet,delayed 81 mg PO DAILY 02/12/18 release isosorbide mononitrate ER 30 mg 30 mg PO QAM #90 tab 02/26/18 tablet,extended release 24 hr nitroglycerin 0.4 mg sublingual 0.4 mg SUBLINGUAL Q5M PRN #25 tab 02/26/18 tablet Surgical History: Surgical History (Last Reviewed 01/11/18 @ 13:30 by Katelyn Gomez) Presence of stent in coronary artery (Chronic) Onset Date: ~02/15/00 Z95.5 PTCA/Stent of the prox LAD and 1st Diagonal 02/15/00 Postsurgical percutaneous transluminal coronary angioplasty (PTCA) status Z98.61 PTCA/Stent of the prox LAD and 1st Diagonal 02/15/00 H/O tubal ligation Z98.51 Hx of cardiac cath Z98.890 S/p bilateral carpal tunnel release Z98.890 Surgical History: angioplasty, cataract, herniorrhaphy, - - Coronary artery stent placement, knee arthroscopy Psychiatric History: No pertinent psych hx SAMPLE GRINDER History: No pertinent SAMPLE GRINDER history Lives: Alone Smoking Status: Former smoker Tobacco Use: Non-smoker Alcohol: None Drugs: None - *Family History Maternal Family History: Family History (Last Reviewed 01/11/18 @ 13:30 by Katelyn Gomez) Father CAD (coronary artery disease) Myocardial infarction Mother Cancer Sister Breast cancer History Items: No pertinent history Paternal Family History: Family History (Last Reviewed 01/11/18 @ 13:30 by Katelyn Gomez) Father CAD (coronary artery disease) Myocardial infarction Mother Cancer Sister Breast cancer History Items: No pertinent history Review of Systems Constitutional: Denies: Anorexia, Chills, Fever, Night Sweats, Malaise, Weakness, Weight Change, Fatigue Eyes: Denies: Blurred vision, Cataracts, Conjunctivae Inflammation, Double vision, Drainage HEENT: Denies: Difficulty Swallowing, Dysphasia, Ear Pain, Eye Pain, Hearing Changes, Nasal bleeding, Nasal Congestion, Post Nasal Drip Cardiovascular: Reports: Chest Pain. Denies: Claudication, Chest Pressure, Chest Tightness, Edema, Heaviness, Orthopnea, Palpitations, Paroxysmal Noc. Dyspnea, Syncope Respiratory: Denies: Cough, Hemoptysis, Pleuritic Pain, Shortness of Breath, Shortness of breath at rest, Shortness of breath upon exertion, Sputum production Gastrointestinal: Denies: Abdominal Pain, Constipation, Diarrhea, Hematemesis, Hematochezia, Nausea, Melena, Vomiting Genitourinary: Denies: Dysuria, Frequency, Hematuria, Hesitancy, Urgency Gynecological: Denies: Breast symptoms Musculoskeletal: Denies: Back Pain, Foot Pain, Hand Pain, Joint Pain, Joint stiffness, Joint swelling, Joint Tenderness, Leg Pain Skin: Denies: Dryness, Pruritis, Rash Neurological: Denies: Balance problems, Blurred vision, Double vision, Slurred speech, Difficulty swallowing, Focal weakness, Headaches, Incoordination, Numbness, Tingling Psychiatric: Denies: Anxiety, Depression, Homicidal Ideations, Suicidal Ideations Endocrine: Denies: Change in Body Habitus, Heat/ Cold Intolerance, Polydipsia, Polyuria Hematologic/ Lymphatic: Denies: Adenopathy, Anemia, Easy Bruising, Easy Bleeding, Petechiae, Purpura VTE Information - Inpt Only VTE Present on Admission: No VTE Mechan Device Prophylaxis: None VTE Pharm Prophylaxis ordered?: Yes Patient Problems: Active and Suspected Problems (Last Reviewed 01/11/18 @ 13:30 by Katelyn Gomez) CAD (coronary artery disease) (Acute) Epigastric pain (Acute) Chest pain (Acute) - Physical Exam General: Alert, Oriented x3, Cooperative, No apparent distress, Well developed, Well nourished HEENT: Atraumatic, PERRLA, EOMI, Normocephalic Oral: Moist Mucosa Neck: Supple, No JVD, Negative Carotid Bruits, No Nuchal Rigidity, Trachea Midline, Thyroid Normal Size and Texture Lungs: Clear to auscultation, Normal air movement, No rhonchi, No wheeze, No rales Cardiovascular: Regular rate, Regular Rhythm, Normal S1, Normal S2, No murmurs, No Ectopic Activity, PMI Normal, No rub noted, No Gallop Abdomen: Bowel Sounds Present, Soft, Non Tender, Non-Distended, No hernias noted Extremities: No clubbing, No cyanosis, No edema, Capillary Refill Less than 3 Seconds Skin: No rashes, No breakdown Musculoskeletal: No Tenderness to Palpation of Joints or Extremities Neurological: Cranial nerves II-XII grossly intact, Neuro grossly intact, Muscle tone normal, Sensory exam intact to light touch and pain, Coordination normal Psych/Mental Status: Normal Affect, Appropriate, Alert and oriented to time, place, person, mood and affect Vital Signs Temp Pulse Resp BP Pulse Ox 97.9 F 76 16 187/66 H 97 02/26/18 19:22 02/26/18 19:22 02/26/18 19:22 02/26/18 19:22 02/26/18 19:22 Oxygen Delivery Method Room Air Weight: 45 kg Body Mass Index (BMI) 20.0 Intake and Output for Last 24 Hours 02/24/18 02/25/18 02/26/18 23:59 23:59 23:59 Intake Total 774 / 774 Balance 774 / 774 Laboratory Tests Past 24 Hrs 02/26/18 02/26/18 02/26/18 11:05 11:05 14:05 WBC 6.2 RBC 4.22 Hgb 12.4 Hct 37.0 MCV 87.7 MCH 29.4 MCHC 33.5 RDW 12.7 RDW Differential 40.5 Plt Count 173 MPV 10.9 Immature Gran % (Auto) 0.200 Neut % (Auto) 62.3 Lymph % (Auto) 20.0 [place] % (Auto) 8.6 Eos % (Auto) 8.1 H Baso % (Auto) 0.8 Absolute Neuts (auto) 3.9 Absolute Lymphs (auto) 1.24 Total Counted Not Reportable Sodium 135 L Potassium 4.5 Chloride 100 Carbon Dioxide 28.0 Anion Gap 7 BUN 25 H Creatinine 1.05 H Estim Creat Clear Calc 29.48 Est GFR (MDRD) Af Amer 64 Est GFR (MDRD) Non-Af 53 L BUN/Creatinine Ratio 23.8 H Glucose 286 H Calcium 9.5 Total Bilirubin 0.50 Direct Bilirubin 0.14 AST 16 ALT 17 Alkaline Phosphatase 50 Troponin I < 0.015 < 0.015 Total Protein 6.9 Albumin 3.3 Globulin 3.6 Lipase 126 02/26/18 17:35 WBC RBC Hgb Hct MCV MCH MCHC RDW RDW Differential Plt Count MPV Immature Gran % (Auto) Neut % (Auto) Lymph % (Auto) [place] % (Auto) Eos % (Auto) Baso % (Auto) Absolute Neuts (auto) Absolute Lymphs (auto) Total Counted Sodium Potassium Chloride Carbon Dioxide Anion Gap BUN Creatinine Estim Creat Clear Calc Est GFR (MDRD) Af Amer Est GFR (MDRD) Non-Af BUN/Creatinine Ratio Glucose Calcium Total Bilirubin Direct Bilirubin AST ALT Alkaline Phosphatase Troponin I < 0.015 Total Protein Albumin Globulin Lipase POC Glucose 02/26/18 02/26/18 17:54 13:43 POC Glucose 270 H 215 H Assessment/Plan All Active Problems (Last Reviewed 01/11/18 @ 13:30 by Katelyn Gomez) Carotid artery disease (Acute) CAD (coronary artery disease) (Acute) Epigastric pain (Acute) Chest pain (Acute) Abnormal stress test (Acute) Coronary artery anomaly (Acute) #1 chest pain in a patient with known obstructive coronary artery disease- probable angina-patient was admitted to PCU, cardiac enzymes will be cycled, she will be placed on IV fluids, a BMP will be performed in the morning and she will undergo a cardiac catheterization with planned intervention with stents in the morning. #2 occlusive coronary artery disease-plan as above #3 hypertension #4 type 2 diabetes-blood sugars will be monitored and she will receive insulin based on Accu-Cheks #5 hyperlipidemia #6 carotid occlusive disease-primarily right internal carotid artery, stenosis 60-79%, left internal carotid artery 20-39% #7 chronic kidney disease stage III secondary to type 2 diabetes-patient will be given fluids and BMP will be rechecked tomorrow Code Visit Inpatient E&M: 01025 Init Hosp L3
[2018-02-26] MEDS: Heparin Injection (Vial) 5,000 UNIT/ML VIAL 5000 UNIT SC (21:39)
[2018-02-26] MEDS: Losartan Potassium 50 MG Tablet PO (21:39)
[2018-02-26] MEDS: Atorvastatin Calcium 20 MG Tablet PO (21:41)
[2018-02-26 23:36] LABS: Bedside Glucose 204 mg/dL (70-110)
[2018-02-27] VITALS (33 sets, daily range): BP systolic 80–198; BP diastolic 39–83; PULSE 46–88; RESP 9–23; TEMP 36.7–37.1; O2SAT 92–99
[2018-02-27] MEDS: 0.9% Normal Saline 1,000 ML 75 ML IV ×2 (00:52→18:05)
[2018-02-27 01:17] LABS: Color, Urine Yellow (Yellow); Glucose, Dipstick Normal (Normal); Ketone-Dipstick Negative (Negative); Leukocyte Esterase-Dipstick 100 /ul (Negative); Nitrite-Dipstick Negative (Negative); Occult Blood-Urine Negative /ul (Negative); Protein-Dipstick Negative (Negative); Urine Bilirubin Dipstick Negative (Negative); Urine Clarity Clear (Clear); Urine Urobilinogen Normal (Normal)
[2018-02-27] MEDS: Aspirin E.C. 81 MG Tablet PO (05:55)
--- NOTE | 2018-02-27 05:55 | EKG12_ITS ---
Test Reason : Blood Pressure : / mmHG Vent. Rate : 057 BPM Atrial Rate : 057 BPM P-R Int : 164 ms QRS Dur : 076 ms QT Int : 484 ms P-R-T Axes : 032 -01 062 degrees QTc Int : 471 ms Sinus bradycardia Septal infarct , age undetermined Abnormal ECG Confirmed by JUAN ALLRED, ROSA ([id number]), video effects editor DONTAE MENDOZA ([id number]) on 03/01/2018 2:18:39 PM Referred By: Galo Ortiz Confirmed By:ROSA MARTINEZ MD
[2018-02-27] MEDS: Clopidogrel Bisulfate 75 MG Tablet PO (05:56)
[2018-02-27] MEDS: Isosorbide Mononitrate 30 MG Tablet PO (05:56)
[2018-02-27] MEDS: Losartan Potassium 50 MG Tablet PO ×2 (05:56→20:03)
[2018-02-27] MEDS: Metoprolol(XL)Succ 25 MG Tablet 12.5 MG PO ×2 (05:57→20:03)
[2018-02-27 06:19] LABS: Absolute Lymphocyte Count 1.03 X10^3/ul (0.83-4.51); Absolute Neutrophil Count 3.4 X10^3/uL (2.0-7.7); Basophil# 0.08 X10^3/uL; Basophil% 1.4 % (0-1); Eosinophils% 10.7 % (0-5); Hemoglobin 14.5 g/dl (12.0-15.0); Lymphocyte # 1.03 X10^3/ul (4.0); Lymphocyte % 18.4 % (19-41); Mean Corp Hgb Conc 34.5 g/gl (32-36); Mean Platelet Vol. 11.4 fl (6.2-12.0); Monocyte# 0.54 X10^3/uL; Monocyte% 9.6 % (0-10); Neutrophil # 3.35 X10^3/uL (2.7-7.7); Neutrophil % 59.7 % (47-70); Platelet Count 188 K/mm3 (150-450); RBC Distribution Width CV 12.5 % (11.6-14.6); RBC Distribution Width SD 39.3 fl (35.1-43.9); Red Blood Count 4.83 M/mm3 (4.2-5.4); White Blood Count 5.6 K/mm3 (4.4-11.0)
[2018-02-27 06:21] LABS: Prothrombin Time (Protime)PT. 12.9 SECONDS (11.7-14.9)
[2018-02-27 06:22] LABS: Partial Thromboplast Time 35.6 Seconds (24.1-36.2)
[2018-02-27 06:36] LABS: Anion Gap 7 (5-15); BUN 24 mg/dL (7-18); BUN/Creat Ratio 27.6 RATIO (10-20); Calcium,Total 9.2 mg/dL (8.5-10.1); Chloride 101 mmol/L (98-107); Creatinine, Serum 0.87 mg/dL (0.55-1.02); EST Glomerular Filtration Rate 66 mL/min (>60); Est Glom Filt Rate - Afr Amer 80 mL/min (>60); Estimated Creatinine Clearance 34.81 ml/min; Glucose 241 mg/dL (74-106); Potassium 4.2 mmol/L (3.5-5.1); Sodium Level 138 mmol/L (136-145)
[2018-02-27 06:37] LABS: POSITIVE COUNT NO; POSITIVE DIFFERENTIAL NO; POSITIVE MORPHOLOGY NO
[2018-02-27 07:05] LABS: Bedside Glucose 217 mg/dL (70-110)
[2018-02-27 07:05] LABS: Bedside Glucose 323 mg/dL (70-110)
--- NOTE | 2018-02-27 07:33 | NURSING ---
Pt c/o dizziness/shakiness this AM. BP was high at this time. Two attempts were made to page hospitalist pertaining to pt's BP. Unable to reach MD. Bland RN was notified of pt symptoms.
--- NOTE | 2018-02-27 07:36 | NURSING ---
report called to Kimberly in clinical lab clerk benadryl given per order
[2018-02-27] MEDS: DiphenhydrAMINE 25 MG Capsule 50 MG PO (07:39)
--- NOTE | 2018-02-27 09:35 | NURSING ---
report given to John Paul in ICU. patient is down at laboratory tester
--- NOTE | 2018-02-27 09:44 | CL.I_ITS ---
Patient Name: ESTUARDO MOODY Study Date: 02/27/2018 Performing: Galo Ortiz MD Ht: 59.05 inches 150 cm : 1935 Wt: 99.2 lbs 45 kg Age: 82 Gender: female BSA: 1.37 PROCEDURE(S) PERFORMED [id number] W OR WO PTCA, SINGLE CORONARY ARTERY [id number], SINGLE CORONARY ARTERY CLINICAL PROFILE AND CO-MORBIDITIES Indications: New Onset Angina <= 2 months, Stable Known CAD Heart Failure: None Stress/Imaging Stress Test w/SPECT MPI: Yes Result: Positive Low Risk Stress Test with SPECT MPI: Positive Low Risk Angina Classification Anginal Classification w/in 2 Weeks: CCS III CAD Presentations: Unstable angina. Comorbidities/Risk Factors: Hypertension Dyslipidemia Prior PCI Diabetes Mellitus: Diabetes Therapy: Insulin CONCLUSIONS Successful PTCA/DALJIT mid LAD with a 2.25 x 8 Promus Synergy; 85%-->0%, no dissection. Successful PCI with PTCA to the mid OM#1 with a 2.0 x 8 Balloon; 85%--10%, no dissection. Unable to cross with 2.25 x 8 stent due to tortuosity and backup issues. Pt was not tolerating procedure well due to severe back pain; Procedure terminated given good result, lack of anginal symptoms during ball oon inflation and poor tolerance of back pain. RECOMMENDATIONS Highly recommend quitting all tobacco products Follow up with primary instructor trainer canine service Risk factor modification ASA Indefinitley Plavix for at least 12 months Routine post interventional care Refer for Outpatient Cardiac Rehab Manual sheath removal per protocol Follow up with Dr. Doty Manual sheath removal once ACT<150; pt too thin for Mynx procedure and calcified femoral artery. D/w Dr Doty at conclusion. DESCRIPTION OF PROCEDURE The patient arrived to the procedure lab. The risks and benefits of the procedure as well as a full d escription of our services here and current unavailability of surgical backup were fully explained to the patient and/or their significant other prior to the catheterization. The Timeout was completed, verifying the correct patient and procedure. The patient's procedural site was prepped and draped in the usual fashion. Local anesthetic was given subcutaneously to right groin region with Lidocaine 2%. Using a modified Seldinger technique, arterial access was obtained via the right femoral artery, a 6 Fr sheath was inserted.. Arterial sheath was exchanged for a 6fr 45cm sheath EBU 3.75 Guide catheter was inserted and engaged into the LCA. BMW Guide wire was advanced to the LAD. Angiogram performed pre balloon dilatation. ilan rge 2.00x8 Balloon catheter was inserted. PTCA balloon inflated at 6 atms for 14 secs. PTCA balloon i nflated at 6 atms for 9 secs. Angiogram performed post balloon dilatation. synergy 2.25x8 Drug Elutin g stent was inserted. Angiogram performed post stent deployment. Angiogram performed pre balloon dila tation. emerge 2.00x8 Balloon catheter was inserted. PTCA balloon inflated at 6 atms for 15 secs. syn ergy 2.25x8 Drug Eluting stent was inserted. Drug Eluting stent was removed intact, failed to cross l esion Arterial sheath was exchanged for a 6 Fr Sheath. The arterial sheath was sutured in place and capped INTERVENTION INFORMATION LESION SITE: LAD (Mid) lesion at bifurcation: No, thrombus present: No, lesion length: 8 mm, culprit lesion: Yes Pre Stenosis: 85 % Pre intervention WARREN flow: 3 PROCEDURE: Drug Eluting Stent with pre dilatation. Post Stenosis: 0 % Post intervention WARREN flow: 3 Lesion Devices: Medtronic 6 Fr EBU3.75 100cm Guide Catheter Armen Sci EMERGE MR 2.00x08 BALLOON Armen Sci Synergy MR DALJIT 2.25x08 LESION SITE: 1st OM (Mid) Lesion Complexity: Non-High/Non-C, lesion at bifurcation: No, thrombus present: No, lesion length: 8 mm, culprit lesion: No Pre Stenosis: 85 % Pre intervention WARREN flow: 3 PROCEDURE: Balloon Angioplasty Post Stenosis: 10 % Post intervention WARREN flow: 3 Lesion Devices: Medtronic 6 Fr EBU3.75 100cm Guide Catheter Armen Sci EMERGE MR 2.00x08 BALLOON Armen Sci Synergy MR DALJIT 2.25x08 COMPLICATIONS No Complications PROCEDURE MEDICATIONS Versed 1 mg IV Demoral 12.5 mg IV Oxygen: 2 L/min via nasal cannula Heparin 6000 unit(s) IV 02/27/2018 09:00:31 Nitro 200 mcg IC 02/27/2018 09:02:19 Nitro 200 mcg IC 02/27/2018 09:02:19 Nitro 200 mcg IC 02/27/2018 09:08:14 Nitro glycerin 25mg / 250ml D5W @ 5 mcg/min IV started 02/27/2018 09:15:57 Nitro glycerin 25mg / 250ml D5W @ 10 mcg/min (increased rate) 02/27/2018 09:20:05 Nitro 200 mcg IC 02/27/2018 09:22:31 Nitro glycerin -on hold 02/27/2018 09:24:12 Zofran 2 mg IV 02/27/2018 09:30:06 IV Bolus: .9 NaCl 900 ml total 02/27/2018 09:37:35 SUMMARY OF HEMODYNAMIC DATA Time AIR REST ECG 07:50:27 AO 172/78 (113) SA 09:00:58 Signed By Galo Ortiz MD On 02/27/2018 09:44:03 Galo Ortiz MD
[2018-02-27 10:16] LABS: ACT Activated Clotting Time 263 sec (74-137)
[2018-02-27] MEDS: 0.9% Normal Saline 1,000 ML 150 ML IV (10:30)
--- NOTE | 2018-02-27 10:35 | EKG12_ITS ---
Test Reason : PCI Blood Pressure : / mmHG Vent. Rate : 060 BPM Atrial Rate : 060 BPM P-R Int : 150 ms QRS Dur : 072 ms QT Int : 470 ms P-R-T Axes : 017 -08 049 degrees QTc Int : 470 ms Normal sinus rhythm Nonspecific ST and T wave abnormality Prolonged QT Abnormal ECG Confirmed by JUAN ALLRED, ROSA ([id number]), web editor DONTAE MENDOZA ([id number]) on 03/01/2018 2:29:49 PM Referred By: Galo Ortiz Confirmed By:ROSA MARTINEZ MD
--- NOTE | 2018-02-27 11:10 | CRPHASE1 ---
Patient Data/Charges Phase II Referral:: [facility] Start Phase II:: FOLLOWING OFFICE VISIT WITH WATER SERVICE DISPATCHER Risk Factors/Lifestyle Smoking Status: Former smoker Hx Hypertension: Yes Hx Diabetes Mellitus Type 2: Yes - INSULIN DEPENDENT Hx Metabolic Disorders: Yes Hx Dyslipidemia: Yes Hx Obesity: No Height: 4 ft 11 in - BMI 20.0 Post-Menopausal: Yes Stress: Home/Family Risk Factor for Sedentary Lifestyle: Highest Risk Family History: Family History (Last Reviewed 01/11/18 @ 13:30 by Katelyn Gomez) Father CAD (coronary artery disease) Myocardial infarction Mother Cancer Sister Breast cancer Past Cardiac Illness: Coronary Artery Disease, Previous PCI w/Stent Phase I Education Given On:: [place], Nutrition, Antiplatelet medication, Diabetes - Type II Issues Affecting Care:: None Knowledge of Condition:: Yes Learning Preferences: Verbal, Written Medical/Surgical History [place]:: No CAD:: Yes Asthma:: Yes ZULEMA:: Yes Diabetes:: Yes Diabetes Type II:: Yes - INSULIN DEPENDENT Dyslipidemia:: Yes Other Medical/Surgical Issues:: SPINAL STENOSIS CABG: No PTCA:: Yes - 2000 Discharge/Home/Social Eval Discharge Disposition: Home
--- NOTE | 2018-02-27 11:13 | CRPHASE1_ITS ---
Patient Data/Charges Phase II Referral:: [facility] Start Phase II:: FOLLOWING OFFICE VISIT WITH REWORK OPERATOR Risk Factors/Lifestyle Smoking Status: Former smoker Hx Hypertension: Yes Hx Diabetes Mellitus Type 2: Yes - INSULIN DEPENDENT Hx Metabolic Disorders: Yes Hx Dyslipidemia: Yes Hx Obesity: No Height: 4 ft 11 in - BMI 20.0 Post-Menopausal: Yes Stress: Home/Family Risk Factor for Sedentary Lifestyle: Highest Risk Family History: Family History (Last Reviewed 01/11/18 @ 13:30 by Katelyn Gomez) Father CAD (coronary artery disease) Myocardial infarction Mother Cancer Sister Breast cancer Past Cardiac Illness: Coronary Artery Disease, Previous PCI w/Stent Phase I Education Given On:: [place], Nutrition, Antiplatelet medication, Diabetes - Type II Issues Affecting Care:: None Knowledge of Condition:: Yes Learning Preferences: Verbal, Written Medical/Surgical History [place]:: No CAD:: Yes Asthma:: Yes ZULEMA:: Yes Diabetes:: Yes Diabetes Type II:: Yes - INSULIN DEPENDENT Dyslipidemia:: Yes Other Medical/Surgical Issues:: SPINAL STENOSIS CABG: No PTCA:: Yes - 2000 Discharge/Home/Social Eval Discharge Disposition: Home
--- NOTE | 2018-02-27 11:13 | CRPH1.INSTRU ---
General Education CAD and cardiac anatomy and function:: Patient communicates acknowledgment Explanation of diagnoses and procedures:: Patient communicates acknowledgment Sign/Symptoms of HI:: Patient communicates acknowledgment Antiplatelet therapy: Patient communicates acknowledgment Emergency procedures and activation of EMS: Patient communicates acknowledgment Compliance of all prescribed medications: Patient communicates acknowledgment Smoking Recommendations Include:: Previous smoker; encourage continued cessation Nicotine/Smoking Response Code:: Patient communicates acknowledgment Dyslipidemia Recommendations Include:: Lipid profile not available, Reviewed NCEP/ATP guidelines, Therapeutic Lifestyle Change dietary guidelines Dyslipidemia Response Code:: Patient communicates acknowledgment Overweight/Obesity Patient Overweight/Obesity Risk Factors Are:: BMI Normal [24-29 & > 65 years old] Hypertension Recommendations Include:: BP <130/80 if diabetic, DASH dietary guidelines, Decrease/maintain normal body weight, Moderation of ETOH Hypertension:: Patient communicates acknowledgment Heart Disease Patient Heart Disease Risk Factors Are:: Previous cardiac event Heart Disease Response Code:: Patient communicates acknowledgment Diabetes Patient Diabetes Risk Factors Are:: Elevated blood sugars Recommendations Include:: Maintain fasting blood sugars 70-110 md/dL, Maintain HgbA1c of 6% or less, Monitor blood sugar as prescribed, Diabetic dietary guidelines Diabetes:: Patient communicates acknowledgment Metabolic Syndrome Patient Metabolic Syndrome Risk Factors Are [3 of 5]:: Fasting blood sugar > 100 mg/dL, Hypertension, Low HDL <40 [male] or < 50 [female] Recommendations Include:: Reinforce compliance to risk factor modifications, Patient is diabetic, Encouraged follow-up with Primary Care Physician Metabolic Syndrome Response Code:: Patient communicates acknowledgment Sedentary Patient Sedentary Risk Factors Are:: Lack of regular exercise Recommendations Include:: Aerobic exercise 5-7 times/week for 20-30 minutes continuously, Benefits of regular exercise, Discussed home walking program, Monitored Outpatient Cardiac Rehab Sedentary Response Code:: Patient communicates acknowledgment Stress Recommendations Include:: Identification of stressors, and assessment of coping skills, Stress management techniques Stress Response Code:: Patient communicates acknowledgment
[2018-02-27 11:45] LABS: ACT Activated Clotting Time 197 sec (74-137)
--- NOTE | 2018-02-27 11:54 | CASEMGMT ---
RN CM Assessment PCP: Dr. Corral Specialists: Dr. Ortiz [facility]acy: [facility] Prescription coverage: yes Living Arrangements: alone, one story home. Daughters live nearby and are able to assist with transportation. Pt states she is independent in ADL's. DME: cane Social Work Consult: no DC PLAN: Home on discharge.
[2018-02-27] MEDS: Insulin Lispro 100 UNIT/ML INSULN.PEN SC ×3 (11:57→21:48)
[2018-02-27] MEDS: Leflunomide 10 MG TABLET 5 MG PO (11:59)
[2018-02-27] MEDS: Citalopram 10 MG Tablet 5 MG PO (11:59)
[2018-02-27] MEDS: Pantoprazole Sodium 40 MG Tablet PO (12:00)
[2018-02-27] MEDS: traMADol 50 MG Tablet PO (12:01)
[2018-02-27 12:21] LABS: Bedside Glucose 275 mg/dL (70-110)
[2018-02-27 12:42] LABS: CPK Total, Creatine Kinase 69 U/L (26-192)
[2018-02-27 12:45] LABS: ACT Activated Clotting Time 180 sec (74-137)
[2018-02-27 13:46] LABS: ACT Activated Clotting Time 153 sec (74-137)
[2018-02-27 16:46] LABS: Bedside Glucose 207 mg/dL (70-110)
[2018-02-27 17:11] LABS: CPK Total, Creatine Kinase 61 U/L (26-192)
--- NOTE | 2018-02-27 17:39 | PCM.PN.CARD ---
Subjectve: The patient is now status post LAD PTCA/DALJIT and OM branch PTCA. She appears to be resting comfortably. She has no acute symptoms. Objective: Vital Signs Temp Pulse Resp BP Pulse Ox 98.8 F 54 L 14 133/64 H 94 02/27/18 15:00 02/27/18 16:04 02/27/18 16:00 02/27/18 16:00 02/27/18 16:00 Oxygen Delivery Method Room Air Weight: 99 lb 3.328 oz Body Mass Index (BMI) 20.0 Intake and Output for Last 24 Hours 02/25/18 02/26/18 02/27/18 23:59 23:59 23:59 Intake Total 1508 / 1508 579 / 579 Balance 1508 / 1508 579 / 579 General: Awake, Alert, Oriented x 3, Cooperative, No Acute Distress HEENT: Atraumatic, Normocephalic, PERRL, EOMI, Sclera Non Icteric Oral: Moist Mucosa Neck: Supple, Good ROM, No JVD Lungs: Clear to auscultation Cardiovascular: Regular Rhythm, Normal S1, Normal S2 Vascular: Normal Femoral Pulses Abdomen: Bowel Sounds Present, Soft, Non Tender Extremities: No Cyanosis, No Clubbing, No edema Neurological: No Focal Motor or Sensory Deficit Psych/Mental Status: Appropriate, Normal Affect 02/26/18 17:35: Troponin I < 0.015 02/27/18 01:08: Urine Color Yellow, Urine Clarity Clear, Urine pH 8.0, Ur Specific [place] 1.010, Urine Protein Negative, Urine Glucose (UA) Normal, Urine Ketones Negative, Urine Occult Blood Negative, Urine Nitrite Negative, Urine Bilirubin Negative, Urine Urobilinogen Normal, Ur Leukocyte Esterase 100 H 02/27/18 05:58: Sodium 138, Potassium 4.2, Chloride 101, Carbon Dioxide 30.0, Anion Gap 7, BUN 24 H, Creatinine 0.87, Est GFR (MDRD) Af Amer 80, Est GFR (MDRD) Non-Af 66, BUN/Creatinine Ratio 27.6 H, Glucose 241 H, Calcium 9.2 02/27/18 05:58: WBC 5.6, RBC 4.83, Hgb 14.5, Hct 42.0, MCV 87.0, MCH 30.0, MCHC 34.5, RDW 12.5, RDW Differential 39.3, Plt Count 188, MPV 11.4, Immature Gran % (Auto) 0.200, Neut % (Auto) 59.7, Lymph % (Auto) 18.4 L, [place] % (Auto) 9.6, Eos % (Auto) 10.7 H, Baso % (Auto) 1.4 H, Absolute Neuts (auto) 3.4, Total Counted Not Reportable 02/27/18 05:58: PT 12.9, INR 1.0, APTT 35.6 Rhythm: Sinus rhythm Medical Necessity - Tobacco Use Smoking Status: Former smoker Tobacco Use: Non-smoker Assessment/Plan 1. CAD status post LAD/diagonal branch PCI-1999 The patient has now undergone further cardiovascular evaluation. There is been no evidence of acute coronary syndrome/LA based upon her noninvasive studies. She has proceeded to LAD PTCA/DALJIT and OM branch PTCA. She will continue medical management. 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 She has not required additional invasive/interventional/surgical evaluation or care for this. 3. Hyperlipidemia She will continue lipid-lowering therapy as deemed appropriate. 4. Hypertension Her blood pressures will be followed. She will continue medical management. 5. Diabetes mellitus She will continue under the care of internal medicine for this. 6. Epigastric discomfort Again she will continue evaluation care for noncardiac etiologies of her epigastric discomfort and tenderness to palpation. Comment: The patient's case was discussed and reviewed with the patient, her family members present, and Dr. Atkins. This note was generated with [employer] dictation software. It may contain incorrect words, spelling, and punctuation that were not noted in checking the note before signing.
--- NOTE | 2018-02-27 17:47 | PN_ITS ---
Patient Problems: Active and Suspected Problems (Last Reviewed 01/11/18 @ 13:30 by Katelyn Gomez) CAD (coronary artery disease) (Acute) Epigastric pain (Acute) Chest pain (Acute) Subjective: Patient seen and examined today in the ICU, she underwent cardiac catheterization with intervention today and she had a successful PTCA/DALJIT to the mid LAD and a successful PCI with PTCA to the mid OM#1. Patient has no complaints of any shortness of breath or chest pain at this time and her vital signs appear stable - Physical Exam General: Alert, Oriented x3, Cooperative HEENT: Atraumatic, PERRLA, EOMI, Normocephalic Oral: Moist Mucosa Neck: Supple, No Nuchal Rigidity, Trachea Midline, Thyroid Normal Size and Texture Lungs: Clear to auscultation, Normal air movement, No rhonchi, No wheeze, No rales Cardiovascular: Regular rate, Regular Rhythm, Normal S1, Normal S2, No murmurs, No Ectopic Activity, PMI Normal, No rub noted, No Gallop Abdomen: Bowel Sounds Present, Soft, Non Tender, Non-Distended Extremities: No edema, Capillary Refill Less than 3 Seconds Skin: No rashes, No breakdown Neurological: Cranial nerves II-XII grossly intact, Neuro grossly intact, Sensory exam intact to light touch and pain, Coordination normal Psych/Mental Status: Normal Affect, Appropriate, Alert and oriented to time, place, person, mood and affect Vital Signs Temp Pulse Resp BP Pulse Ox 98.8 F 54 L 14 133/64 H 94 02/27/18 15:00 02/27/18 16:04 02/27/18 16:00 02/27/18 16:00 02/27/18 16:00 Oxygen Delivery Method Room Air Weight: 45 kg Body Mass Index (BMI) 20.0 Intake and Output for Last 24 Hours 02/25/18 02/26/18 02/27/18 23:59 23:59 23:59 Intake Total 1508 / 1508 579 / 579 Balance 1508 / 1508 579 / 579 Laboratory Tests Past 24 Hrs 02/26/18 02/27/18 02/27/18 17:35 01:08 05:58 WBC RBC Hgb Hct MCV MCH MCHC RDW RDW Differential Plt Count MPV Immature Gran % (Auto) Neut % (Auto) Lymph % (Auto) [place] % (Auto) Eos % (Auto) Baso % (Auto) Absolute Neuts (auto) Absolute Lymphs (auto) Total Counted PT INR APTT Activated Clotting Time Sodium 138 Potassium 4.2 Chloride 101 Carbon Dioxide 30.0 Anion Gap 7 BUN 24 H Creatinine 0.87 Estim Creat Clear Calc 34.81 Est GFR (MDRD) Af Amer 80 Est GFR (MDRD) Non-Af 66 BUN/Creatinine Ratio 27.6 H Glucose 241 H Calcium 9.2 Total Creatine Kinase Troponin I < 0.015 Urine Color Yellow Urine Clarity Clear Urine pH 8.0 Ur Specific [place] 1.010 Urine Protein Negative Urine Glucose (UA) Normal Urine Ketones Negative Urine Occult Blood Negative Urine Nitrite Negative Urine Bilirubin Negative Urine Urobilinogen Normal Ur Leukocyte Esterase 100 H 02/27/18 02/27/18 02/27/18 05:58 05:58 09:26 WBC 5.6 RBC 4.83 Hgb 14.5 Hct 42.0 MCV 87.0 MCH 30.0 MCHC 34.5 RDW 12.5 RDW Differential 39.3 Plt Count 188 MPV 11.4 Immature Gran % (Auto) 0.200 Neut % (Auto) 59.7 Lymph % (Auto) 18.4 L [place] % (Auto) 9.6 Eos % (Auto) 10.7 H Baso % (Auto) 1.4 H Absolute Neuts (auto) 3.4 Absolute Lymphs (auto) 1.03 Total Counted Not Reportable PT 12.9 INR 1.0 APTT 35.6 Activated Clotting Time 263 H Sodium Potassium Chloride Carbon Dioxide Anion Gap BUN Creatinine Estim Creat Clear Calc Est GFR (MDRD) Af Amer Est GFR (MDRD) Non-Af BUN/Creatinine Ratio Glucose Calcium Total Creatine Kinase Troponin I Urine Color Urine Clarity Urine pH Ur Specific [place] Urine Protein Urine Glucose (UA) Urine Ketones Urine Occult Blood Urine Nitrite Urine Bilirubin Urine Urobilinogen Ur Leukocyte Esterase 02/27/18 02/27/18 02/27/18 11:33 12:10 12:34 WBC RBC Hgb Hct MCV MCH MCHC RDW RDW Differential Plt Count MPV Immature Gran % (Auto) Neut % (Auto) Lymph % (Auto) [place] % (Auto) Eos % (Auto) Baso % (Auto) Absolute Neuts (auto) Absolute Lymphs (auto) Total Counted PT INR APTT Activated Clotting Time 197 H 180 H Sodium Potassium Chloride Carbon Dioxide Anion Gap BUN Creatinine Estim Creat Clear Calc Est GFR (MDRD) Af Amer Est GFR (MDRD) Non-Af BUN/Creatinine Ratio Glucose Calcium Total Creatine Kinase 69 Troponin I Urine Color Urine Clarity Urine pH Ur Specific [place] Urine Protein Urine Glucose (UA) Urine Ketones Urine Occult Blood Urine Nitrite Urine Bilirubin Urine Urobilinogen Ur Leukocyte Esterase 02/27/18 02/27/18 13:36 16:25 WBC RBC Hgb Hct MCV MCH MCHC RDW RDW Differential Plt Count MPV Immature Gran % (Auto) Neut % (Auto) Lymph % (Auto) [place] % (Auto) Eos % (Auto) Baso % (Auto) Absolute Neuts (auto) Absolute Lymphs (auto) Total Counted PT INR APTT Activated Clotting Time 153 H Sodium Potassium Chloride Carbon Dioxide Anion Gap BUN Creatinine Estim Creat Clear Calc Est GFR (MDRD) Af Amer Est GFR (MDRD) Non-Af BUN/Creatinine Ratio Glucose Calcium Total Creatine Kinase 61 Troponin I Urine Color Urine Clarity Urine pH Ur Specific [place] Urine Protein Urine Glucose (UA) Urine Ketones Urine Occult Blood Urine Nitrite Urine Bilirubin Urine Urobilinogen Ur Leukocyte Esterase POC Glucose 02/27/18 02/27/18 02/27/18 16:37 11:54 06:57 POC Glucose 207 H 275 H 323 H 02/27/18 02/26/18 02/26/18 05:10 21:37 17:54 POC Glucose 217 H 204 H 270 H Medical Necessity - Tobacco Use Smoking Status: Former smoker Tobacco Use: Non-smoker Assessment/Plan All Active Problems (Last Reviewed 01/11/18 @ 13:30 by Katelyn Gomez) Carotid artery disease (Acute) CAD (coronary artery disease) (Acute) Epigastric pain (Acute) Chest pain (Acute) Abnormal stress test (Acute) Coronary artery anomaly (Acute) #1 Unstable angina with status post drug-eluting stent placement and PTCA- patient will remain in ICU and be reevaluated tomorrow morning for possible discharge home #2 occlusive coronary artery disease-postop day 0 drug-eluting stent placement and PTCA #3 hypertension #4 type 2 diabetes-blood sugars will be monitored and she will receive insulin based on Accu-Cheks #5 hyperlipidemia #6 carotid occlusive disease-primarily right internal carotid artery, stenosis 60-79%, left internal carotid artery 20-39% #7 chronic kidney disease stage III secondary to type 2 diabetes-patient will be given fluids, cardiology has repeated labs for tomorrow Code Visit Inpatient E&M: 61288 Init Hosp L3
[2018-02-27] MEDS: Atorvastatin Calcium 20 MG Tablet PO (20:04)
[2018-02-27 22:01] LABS: Bedside Glucose 236 mg/dL (70-110)
[2018-02-27] MEDS: Mag Hydrox/Al Hydrox/Simeth 30 ML UDC PO (22:30)
[2018-02-27 23:09] LABS: CPK Total, Creatine Kinase 74 U/L (26-192)
[2018-02-28] VITALS (15 sets, daily range): BP systolic 106–212; BP diastolic 32–94; PULSE 51–73; RESP 11–22; TEMP 36.6–37.2; O2SAT 93–98
[2018-02-28 05:22] LABS: Hematocrit 33.2 % (37-47); Hemoglobin 11.3 g/dl (12.0-15.0); Mean Corpuscular Hgb 30.1 pg (27.0-32.0); Mean Corpuscular Volume 88.3 fL (81-99); Mean Platelet Vol. 11.7 fl (6.2-12.0); Platelet Count 170 K/mm3 (150-450); RBC Distribution Width CV 12.5 % (11.6-14.6); RBC Distribution Width SD 39.2 fl (35.1-43.9); Red Blood Count 3.76 M/mm3 (4.2-5.4); White Blood Count 6.9 K/mm3 (4.4-11.0)
[2018-02-28 05:23] LABS: Scan Indicated on CBC? Y/N NO
[2018-02-28 05:27] LABS: Anion Gap 8 (5-15); BUN 21 mg/dL (7-18); BUN/Creat Ratio 24.7 RATIO (10-20); Calcium,Total 8.2 mg/dL (8.5-10.1); Chloride 106 mmol/L (98-107); Creatinine, Serum 0.85 mg/dL (0.55-1.02); EST Glomerular Filtration Rate 68 mL/min (>60); Est Glom Filt Rate - Afr Amer 82 mL/min (>60); Estimated Creatinine Clearance 34.67 ml/min; Glucose 197 mg/dL (74-106); Potassium 4.2 mmol/L (3.5-5.1); Sodium Level 140 mmol/L (136-145)
[2018-02-28] MEDS: Citalopram 10 MG Tablet 5 MG PO (07:27)
[2018-02-28] MEDS: Losartan Potassium 50 MG Tablet PO (07:28)
[2018-02-28] MEDS: Isosorbide Mononitrate 30 MG Tablet PO (07:28)
[2018-02-28] MEDS: Aspirin E.C. 81 MG Tablet PO (07:28)
[2018-02-28] MEDS: Leflunomide 10 MG TABLET 5 MG PO (07:28)
[2018-02-28] MEDS: Metoprolol(XL)Succ 25 MG Tablet 12.5 MG PO (07:29)
[2018-02-28] MEDS: Clopidogrel Bisulfate 75 MG Tablet PO (07:29)
[2018-02-28] MEDS: Pantoprazole Sodium 40 MG Tablet PO (07:29)
[2018-02-28] MEDS: Glucerna Shake 120 ML LIQUID PO (07:36)
[2018-02-28 07:46] LABS: Bedside Glucose 209 mg/dL (70-110)
[2018-02-28] MEDS: Insulin Lispro 100 UNIT/ML INSULN.PEN SC ×2 (08:39→11:56)
--- NOTE | 2018-02-28 09:01 | PCM.PN.CARD ---
Subjectve: The patient is awake and alert. She has no acute complaints with respect to chest discomfort, difficulty breathing, or right lower extremity discomfort. Objective: Vital Signs Temp Pulse Resp BP Pulse Ox 97.9 F 63 19 H 212/74 H 94 02/28/18 04:00 02/28/18 07:29 02/28/18 06:00 02/28/18 07:29 02/28/18 06:00 Oxygen Delivery Method Room Air Weight: 96 lb 8.999 oz Body Mass Index (BMI) 20.0 Intake and Output for Last 24 Hours 02/26/18 02/27/18 02/28/18 23:59 23:59 23:59 Intake Total 1508 / 1508 1579 / 1579 1016 / 1016 Output Total 250 / 250 Balance 1508 / 1508 1329 / 1329 1016 / 1016 General: Awake, Alert, Oriented x 3, Cooperative, No Acute Distress HEENT: Atraumatic, Normocephalic, PERRL, EOMI, Sclera Non Icteric Oral: Moist Mucosa Neck: Supple, Good ROM, No JVD Lungs: Clear to auscultation Cardiovascular: Regular Rhythm, Normal S1, Normal S2 Vascular: Normal Femoral Pulses Abdomen: Bowel Sounds Present, Soft, Non Tender Extremities: No Cyanosis, No Clubbing, No edema Neurological: No Focal Motor or Sensory Deficit Psych/Mental Status: Appropriate, Normal Affect 02/28/18 04:45: WBC 6.9, RBC 3.76 L, Hgb 11.3 L, Hct 33.2 L, MCV 88.3, MCH 30.1, MCHC 34.0, RDW 12.5, RDW Differential 39.2, Plt Count 170, MPV 11.7 02/28/18 04:45: Sodium 140, Potassium 4.2, Chloride 106, Carbon Dioxide 26.0, Anion Gap 8, BUN 21 H, Creatinine 0.85, Est GFR (MDRD) Af Amer 82, Est GFR (MDRD) Non-Af 68, BUN/Creatinine Ratio 24.7 H, Glucose 197 H, Calcium 8.2 L Rhythm: Sinus rhythm/sinus bradycardia EKG: Sinus rhythm; nonspecific T wave change-less prominent compared to previous ECG Medical Necessity - Tobacco Use Smoking Status: Former smoker Tobacco Use: Non-smoker Assessment/Plan 1. CAD status post LAD/diagonal branch PCI-1999 The patient has now undergone further cardiovascular evaluation. There is been no evidence of acute coronary syndrome/DC based upon her noninvasive studies. She has proceeded to LAD PTCA/DALJIT and OM branch PTCA. She will continue medical management. She will continue outpatient cardiovascular follow-up. She will be referred for outpatient cardiac rehabilitation. 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 She has not required additional invasive/interventional/surgical evaluation or care for this. 3. Hyperlipidemia She will continue lipid-lowering therapy as deemed appropriate. 4. Hypertension Her blood pressures will be followed. She will continue medical management. She may need adjustment of her medications. Additional antihypertensive therapy such as a hydrochlorothiazide diuretic may be beneficial as long as she has no adverse events, no adverse electrolyte related issues, no adverse renal related issues, etc. 5. Diabetes mellitus She will continue under the care of internal medicine for this. 6. Epigastric discomfort Again she will continue evaluation care for noncardiac etiologies of her epigastric discomfort and tenderness to palpation. Overall, the patient will continue outpatient cardiovascular follow-up as noted above. Comment: The patient's case was discussed and reviewed with the patient and Dr. Atkins. This note was generated with [employer] dictation software. It may contain incorrect words, spelling, and punctuation that were not noted in checking the note before signing.
--- NOTE | 2018-02-28 10:00 | EKG12_ITS ---
Test Reason : AM EKG Blood Pressure : / mmHG Vent. Rate : 060 BPM Atrial Rate : 060 BPM P-R Int : 166 ms QRS Dur : 066 ms QT Int : 630 ms P-R-T Axes : 035 008 108 degrees QTc Int : 630 ms Normal sinus rhythm Nonspecific T wave abnormality Abnormal ECG Confirmed by JUAN ALLRED, ROSA ([id number]), editor sound DONTAE MENDOZA ([id number]) on 03/01/2018 2:28:28 PM Referred By: Galo Ortiz Confirmed By:ROSA MARTINEZ MD
[2018-02-28] MEDS: HYDROCHLOROTHIAZIDE 12.5 MG CAPSULE PO (10:27)
--- NOTE | 2018-02-28 11:02 | DCINST_ITS ---
- Discharge Diagnoses Current Active Problems: Current Active and Chronic Problems (Last Reviewed 01/11/18 @ 13:30 by Katelyn Gomez) CAD (coronary artery disease) (Acute) Epigastric pain (Acute) Chest pain (Acute) You will use the following diet at home:: Calorie/Carbohydrate Controlled (specify 1200, 1400, etc) - 1800 suzanne Your food should be the consistency of: Regular Your liquids should be the consistency of: Regular/Thin Discharge Activity: Return to Normal Activity Weight Bearing Status: Full weight bearing Allergies/Adverse Reactions: Allergies metronidazole [From Flagyl] Allergy (Verified 02/20/18 12:17) Other Metronidazole HCl [From Flagyl] Allergy (Verified 02/20/18 12:17) Other oxycodone HCl [From OxyContin] Allergy (Verified 02/20/18 12:17) Other Medications to take at Discharge Clopidogrel Bisulfate [Plavix] 75 mg PO DAILY 08/23/13 simvastatin 40 mg tablet 40 mg PO QPM #30 tab 05/02/17 albuterol sulfate HFA 90 mcg/actuation aerosol inhaler 2 puff INHALATION Q6H 05/30/17 calcium carbonate-vitamin D3 600 mg-125 unit tablet 1 tab PO DAILY 05/30/17 fluticasone 50 mcg/actuation nasal spray,suspension 50 mcg INTRANASAL QDAY PRN 05/30/17 insulin aspart U- 100 100 unit/mL subcutaneous pen 5 unit SC TID ml 05/30/17 insulin syringe-needle U-100 half unit marking 0.3 mL 31 gauge x 16 See Dose Instructions .ROUTE .MEDSUPPLY #100 ea 05/30/17 multivitamin tablet 1 tab PO QDAY 05/30/17 pantoprazole 40 mg tablet,delayed release 40 mg PO QDAY 05/30/17 tramadol 50 mg tablet 50 mg PO TID PRN tab 05/30/17 insulin detemir (U-100) 100 unit/mL (3 mL) subcutaneous pen 15 unit SC QPM 06/13/17 citalopram 10 mg tablet 5 mg PO DAILY tab 10/19/17 leflunomide 10 mg tablet 5 mg PO DAILY tab 10/19/17 losartan 100 mg tablet 50 mg PO BID tab 11/08/17 blood sugar diagnostic strips See Dose Instructions .ROUTE .MEDSUPPLY #120 ea 12/26/17 metoprolol succinate ER 25 mg tablet,extended release 24 hr 12.5 mg PO BID tab 01/11/18 aspirin 81 mg tablet,delayed release 81 mg PO DAILY 02/12/18 isosorbide mononitrate ER 30 mg tablet,extended release 24 hr 30 mg PO QAM #90 tab 02/26/18 nitroglycerin 0.4 mg sublingual tablet 0.4 mg SUBLINGUAL Q5M PRN #25 tab 02/26/18 Acetaminophen [Tylenol Tablet] 650 mg PO Q6H PRN PRN tablet 02/28/18 Hydrochlorothiazide 12.5 mg PO DAILY #30 cap 02/28/18 The following prescriptions were given: Hydrochlorothiazide 12.5 mg PO DAILY #30 cap Primary Care Physician: Zulma Corral MD [Primary Care Provider] - Test Results: Test results from this visit will be discussed in further detail at your follow- up appointment, if applicable. Please Follow Up With: Christopher Doty MD When: as directed
[2018-02-28 12:06] LABS: Bedside Glucose 297 mg/dL (70-110)
--- NOTE | 2018-03-01 10:26 | DS.PCM_ITS ---
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 - Secondary Discharge Diagnosis Chronic Problems (Last Reviewed 01/11/18 @ 13:30 by Katelyn Gomez) Carotid artery disease (Chronic) Presence of stent in coronary artery (Chronic ~02/15/00) PTCA/Stent of the prox LAD and 1st Diagonal 02/15/00 Hyperlipidemia (Chronic) Type 2 diabetes mellitus, with long-term current use of insulin (Chronic) Hypertension (Chronic) Hospital Course and Treatment Operations: None Procedures: Cardiac catheterization Summary of Care Provided: The patient is a 82 year old F who was seen in the emergency room at [facility] with a chief complaint of epigastric and lower chest discomfort. She had been diagnosed recently with occlusive coronary disease and was due to have a heart catheterization the week of February 26, 2018. Workup in the emergency room showed the patient had normal troponins, EKG did not show any evidence of acute ischemic changes, patient's chest x-ray was unremarkable. Patient was admitted to PCU for chest pain and unstable angina, she was seen in consultation with cardiology, and on 02/27/18, patient underwent a cardiac catheterization with insertion of a drug-eluting stent and a balloon angio plasty. Patient tolerated her procedure well and there were no complications. Patient was seen and examined on 02/28/18 and felt to be in stable condition for discharge home. Physical exam: On examination she appeared in good health and spirits. Vital signs as documented. Skin warm and dry and without overt rashes. Neck without JVD. Lungs clear. Heart exam notable for regular rhythm, normal sounds and absence of murmurs, rubs or gallops. Abdomen unremarkable and without evidence of organomegaly, masses, or abdominal aortic enlargement. Extremities nonedematous. Neuro: Cranial nerves II through XII are grossly intact, no focal motor deficits were noted, pinprick and light touch sensation intact. Psych: Patient is alert and oriented x3 and is appropriate, she does not appear depressed or anxious. - Physical Exam Vital Signs Temp Pulse Resp BP Pulse Ox 98.9 F 63 16 160/59 H 98 02/28/18 13:30 02/28/18 13:30 02/28/18 13:30 02/28/18 13:30 02/28/18 13:30 Oxygen Delivery Method Room Air Weight: 43.8 kg Body Mass Index (BMI) 20.0 Intake and Output for Last 24 Hours 02/27/18 02/28/18 03/01/18 23:59 23:59 23:59 Intake Total 1579 / 1579 1591 / 1591 Output Total 250 / 250 200 / 200 Balance 1329 / 1329 1391 / 1391 POC Glucose 02/28/18 11:51 POC Glucose 297 H Discharge Activity: Return to Normal Activity Weight Bearing Status: Full weight bearing Home Medications: Medications to take at Discharge Clopidogrel Bisulfate [Plavix] 75 mg PO DAILY 08/23/13 simvastatin 40 mg tablet 40 mg PO QPM #30 tab 05/02/17 albuterol sulfate HFA 90 mcg/actuation aerosol inhaler 2 puff INHALATION Q6H 05/30/17 calcium carbonate-vitamin D3 600 mg-125 unit tablet 1 tab PO DAILY 05/30/17 fluticasone 50 mcg/actuation nasal spray,suspension 50 mcg INTRANASAL QDAY PRN 05/30/17 insulin aspart U- 100 100 unit/mL subcutaneous pen 5 unit SC TID ml 05/30/17 insulin syringe-needle U-100 half unit marking 0.3 mL 31 gauge x 10/04 See Dose Instructions .ROUTE .MEDSUPPLY #100 ea 05/30/17 multivitamin tablet 1 tab PO QDAY 05/30/17 pantoprazole 40 mg tablet,delayed release 40 mg PO QDAY 05/30/17 tramadol 50 mg tablet 50 mg PO TID PRN tab 05/30/17 insulin detemir (U-100) 100 unit/mL (3 mL) subcutaneous pen 15 unit SC QPM 06/13/17 citalopram 10 mg tablet 5 mg PO DAILY tab 10/19/17 leflunomide 10 mg tablet 5 mg PO DAILY tab 10/19/17 losartan 100 mg tablet 50 mg PO BID tab 11/08/17 blood sugar diagnostic strips See Dose Instructions .ROUTE .MEDSUPPLY #120 ea 12/26/17 metoprolol succinate ER 25 mg tablet,extended release 24 hr 12.5 mg PO BID tab 01/11/18 aspirin 81 mg tablet,delayed release 81 mg PO DAILY 02/12/18 isosorbide mononitrate ER 30 mg tablet,extended release 24 hr 30 mg PO QAM #90 tab 02/26/18 nitroglycerin 0.4 mg sublingual tablet 0.4 mg SUBLINGUAL Q5M PRN #25 tab 02/26/18 Acetaminophen [Tylenol Tablet] 650 mg PO Q6H PRN PRN tablet 02/28/18 Hydrochlorothiazide 12.5 mg PO DAILY #30 cap 02/28/18 Following Prescrptions Were Given to Patient: Hydrochlorothiazide 12.5 mg PO DAILY #30 cap Primary Care Physician: Zulma Corral MD [Primary Care Provider] - Please Follow Up With: Christopher Doty MD When: as directed Disposition: Home Minutes spent on discharge:: 32 Patient Condition:: Stable Medical Necessity - Tobacco Use Smoking Status: Former smoker Tobacco Use: Non-smoker Meaningful Use Info Meaningful Use Diagnoses (Choose all that apply): None applicable Code Visit Inpatient E&M: 75408 Disch Hosp
== END 2018-02-28 14:00 | disposition home or self-care (01) | DRG 247 ==
LOC: ED 11:13 → PCU 12:34 → ICU 02-27 10:08
PROVIDERS: Internal Medicine Cardiovascular Disease; Admitting Provider Internal Medicine; Emergency Provider Emergency Medicine; Family Provider Internal Medicine; PCP Internal Medicine; Visit Provider Internal Medicine
DX: I25.110 Atherosclerotic heart disease of native coronary artery with unstable angina pectoris (principal); E44.0 Moderate protein-calorie malnutrition; M48.00 Spinal stenosis, site unspecified; E78.5 Hyperlipidemia, unspecified; N18.3 Chronic kidney disease, stage 3 (moderate); E11.22 Type 2 diabetes mellitus with diabetic chronic kidney disease; J44.9 Chronic obstructive pulmonary disease, unspecified; Z68.20 Body mass index [BMI] 20.0-20.9, adult; Z87.891 Personal history of nicotine dependence; Z79.4 Long term (current) use of insulin; I65.23 Occlusion and stenosis of bilateral carotid arteries; I12.9 Hypertensive chronic kidney disease with stage 1 through stage 4 chronic kidney disease, or unspecified chronic kidney disease; Z95.5 Presence of coronary angioplasty implant and graft
CPT/HCPCS: 36415; 71045; 80048; 80076; 81002; 82550; 82962; 83690; 84484; 85025; 85027; 85347; 85610; 85730; 92920; 92928; 93005; 97802; 99152; 99153; 99283; J7030; Q9967; A4216; C1725; C1769; C1874; C1887; C1894; C9600; J2405

== ENCOUNTER → 2018-03-08 11:06 | Outpatient (CLI) | payer MEDICARE, OTHER, SELFPAY ==
--- NOTE | 2018-03-08 11:17 | PCM.CR.HP2 ---
CR - History & Physical - General Arrival date:: 03/08/18 Arrival time:: 11:18 Date of Referral:: 02/28/18 Date of CR Evaluation:: 03/08/18 Referring Physician: Dr. Christopher Doty Primary Diagnosis: PCI w/coronary stent palcement - History of Present Cardiac Event Onset Date: Enter Onset Date of cardiac illnesses in Comment field below PTCA or coronary stenting:: Yes - 02/27/2018 Type of Symptoms:: shortness of breath, fatigue. Interventions with present event:: Stress Nuclear abnormal heart cath w/stent Were there any complications?: none - Medications Home Medications: Ambulatory Orders Medication Instructions Recorded Clopidogrel Bisulfate [Plavix] 75 mg PO DAILY 08/23/13 simvastatin 40 mg tablet 40 mg PO QPM #30 tab 05/02/17 albuterol sulfate HFA 90 2 puff INHALATION Q6H 05/30/17 mcg/actuation aerosol inhaler calcium carbonate-vitamin D3 600 1 tab PO DAILY 05/30/17 mg-125 unit tablet fluticasone 50 mcg/actuation nasal 50 mcg INTRANASAL QDAY PRN 05/30/17 spray,suspension insulin aspart U- 100 100 unit/mL 5 unit SC TID ml 05/30/17 subcutaneous pen insulin syringe-needle U-100 half See Dose Instructions .ROUTE 05/30/17 unit marking 0.3 mL 31 gauge x .MEDSUPPLY #100 ea 10/04 multivitamin tablet 1 tab PO QDAY 05/30/17 pantoprazole 40 mg tablet,delayed 40 mg PO QDAY 05/30/17 release tramadol 50 mg tablet 50 mg PO TID PRN tab 05/30/17 insulin detemir (U-100) 100 15 unit SC QPM 06/13/17 unit/mL (3 mL) subcutaneous pen citalopram 10 mg tablet 5 mg PO DAILY tab 10/19/17 leflunomide 10 mg tablet 5 mg PO DAILY tab 10/19/17 losartan 100 mg tablet 50 mg PO BID tab 11/08/17 blood sugar diagnostic strips See Dose Instructions .ROUTE 12/26/17 .MEDSUPPLY #120 ea metoprolol succinate ER 25 mg 12.5 mg PO BID tab 01/11/18 tablet,extended release 24 hr aspirin 81 mg tablet,delayed 81 mg PO DAILY 02/12/18 release nitroglycerin 0.4 mg sublingual 0.4 mg SUBLINGUAL Q5M PRN #25 tab 02/26/18 tablet Acetaminophen [Tylenol Tablet] 650 mg PO Q6H PRN PRN tablet 02/28/18 Hydrochlorothiazide 12.5 mg PO DAILY #30 cap 02/28/18 Isosorbide Mononitrate [Isosorbide 15 mg PO QAM 03/08/18 Mononitrate ER] - Allergies Allergies/Adverse Reactions: Allergies metronidazole [From Flagyl] Allergy (Verified 02/20/18 12:17) Other Metronidazole HCl [From Flagyl] Allergy (Verified 02/20/18 12:17) Other oxycodone HCl [From OxyContin] Allergy (Verified 02/20/18 12:17) Other - Sleep Disorder Evaluation Hx of Sleep Apnea: No Do you snore loudly (louder than talking or can be heard through closed doors)?: No Do you often feel tired/ fatigued/ sleepy during daytime?: Yes - yesterday was first day ouot, does take regular afternoon naps each day. Has anyone observed you stop breathing during sleep?: No History of Hypertension (for STOP score): Yes STOP Results: Positive Advanced Directives - Advanced Directives Power of Vice President Business & Corporate Development: Yes Living Will: Yes Advance Directives Information Provided: No Advance Directives on File: Yes DNR Order?:: No - MOLST See MOLST form: No Past Medical History - Past Medical Illness Medical History: Past Medical History (Last Reviewed 01/11/18 @ 13:30 by Katelyn Gomez) Carotid artery disease (Chronic) I77.9 Coronary artery anomaly (Acute) Q24.5 Hyperlipidemia (Chronic) E78.5 Type 2 diabetes mellitus, with long-term current use of insulin (Chronic) E11.9, Z79.4 Hypertension (Chronic) I10 Arteriovenous fistula, acquired, 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 Cerebral artery occlusion I66.9 Sleep apnea G47.30 TIA (transient ischemic attack) G45.9 COPD (chronic obstructive pulmonary disease) J44.9 Spinal stenosis M48.00 - Past Surgical History Surgical History: Past Surgical History (Last Reviewed 01/11/18 @ 13:30 by Katelyn Gomez) Presence of stent in coronary artery (Chronic) Onset Date: ~02/15/00 Z95.5 PTCA/Stent of the prox LAD and 1st Diagonal 02/15/00 Postsurgical percutaneous transluminal coronary angioplasty (PTCA) status Z98.61 PTCA/Stent of the prox LAD and 1st Diagonal 02/15/00 H/O tubal ligation Z98.51 Hx of cardiac cath Z98.890 S/p bilateral carpal tunnel release Z98.890 Surgical History: angioplasty, cataract, herniorrhaphy, - - Coronary artery stent placement, knee arthroscopy - Family History Summary Family History: Family History (Last Reviewed 01/11/18 @ 13:30 by Katelyn Gomez) Father CAD (coronary artery disease) Myocardial infarction Mother Cancer Sister Breast cancer Social History - Smoking History Smoking Status: Former smoker Years Smokin Hx Smoking Cessation Date: 1969 Hx Tobacco Use: Yes Hx Smoking Exposure: No - Alcohol Use Alcohol Usage: No - Substance Abuse Hx Substance Use: No - Occupation Occupation (List type of work in comments):: Retired - Hobbies, Recreation, Social Activities Hobbies: Sewing - knitting, bridge club, [employer] card games, puzzle books., Other Recreational Activities: I am able to engage in a few activities Social Environment - Status Marital Status: - Current Living Arrangements Living Environment:: Alone - Children How many children do you have?: 4 Do any of your children live nearby?: Yes - 3 in the area, youngest in [place], [place] - Safety Do you feel safe in your surroundings?: Yes - Assistance Do you need any assistance at home?: None Review of Systems - Review of Systems Hints: Right click = Denies (Slash). Left click = Reports ([place]) Review of Present Symptoms: Reports: Dizziness/Lightheadedness - once in a great while, but think it is the bllod pressure medication, Fatigue, Appetite - Normal - protein malnutrition, Appetite - Special Diet - diabetic- cardiac diet - sodium free -, Sleep - Normal. Denies: Shortness of Breath at Rest, Shortness of Breath with Exertion, Angina - Pain Pain Location: back - spinal stenosis, takes tramadol for back pain. Takes two tabs daily. Pain Level: 3/10 Risk Factor Assessment - Chief Complaint Chief Complaint: Patient is a very pleasant [address] Doty who presentst o cardiac rehab today following recent PTCA and cronary stent procedure done 02/27/2018 here at [facility]. - Vital Signs Temperature: 98.7 F Respiratory Rate: 16 Pulse Ox: 97 Blood Pressure: 118/74 - Pulse Pulse Rate: 51 Pulse Rhythm: Regular - Hypertension How long have you been treated?: long time; since stents in 01/2000 Blood Pressure Sitting - Left Arm: 118/74 - Diabetes Diabetic History: Type II, Medication Dependent, Insulin Dependent - Obesity Height: 4 ft 11 in Weight:: 103 lb Weight in Pounds: 103.0 lbs Weight Source: Standing Scale Body Mass Index (BMI): 20.7 Nutritional Referral for Obesity: No - Physical Inactivity Physical Inactivity: None - daily chores; daughters do vacumming mopping floors. - Risk Stratification Risk Guidelines: Lowest Risk: Risk Factor for Smoking, Risk Factor for Dyslipidemia, Risk Factor for Diabetes, Risk Factor for Obesity, Risk Factor for Hypertension, Risk Factor for Sedentary Lifestyle, Risk Factor for Depression - For Smoking Smoking Risk Guidelines: Smoking Low Risk: None or quit greater than 6 months ago. Smoking Moderate Risk: Smoker or quit 6 months or less ago. Smoking High Risk: Smoker - For Dyslipidemia Dyslipidemia Risk Guidelines: Low Risk: Moderate Risk: High Risk: 15-25% fat 25.1-29% fat >/= 30% fat. <7% sat fat 7-9% sat fat >9% sat fat. <150 mg chol 150-299 mg chol >/= 300 mg chol. LDL <100 LDL 100-129 LDL >/= 130. Chol/HDL ratio <5.0 Chol/HDL ratio 5.0-6.0 Chol/HDL ratio >6.0. Triglycerides <100 Triglycerides 100-149 Triglycerides >/= 150 - For Diabetes Mellitus Diabetes Risk Guidelines: Diabetes Low Risk: HgA1c <6.5% and/or FBG <120. Diabetes Moderate Risk: HgA1c 6.6-7.9% and/or FBG 120-180. Diabetes High Risk: HgA1c >/= 8% and/or FBG >180 - For Obesity/Overweight Obesity/Overweight Risk Guidelines: Obesity Low Risk: BMI <25.0. Obesity Moderate Risk: BMI 25-29.9. Obesity High Risk: BMI >/= 30.0 - For Hypertension Hypertension Risk Guidelines: Hypertension Low Risk: Systolic <120 and Diastolic <80. Hypertension Moderate Risk: Systolic 120-139 and Diastolic 80-89. Hypertension High Risk: Systolic >/= 140 and Diastolic >/= 90 - For Sedentary Lifestyle Sedentary Lifestyle Risk Guidelines: Sedentary Lifestyle Low Risk: >/= 1,500 kcal/week. Sedentary Lifestyle Moderate Risk: 700-1,499 kcal/week. Sedentary Lifestyle High Risk: < 700 kcal/week - For Depression Depression Risk Guidelines: Depression Low Risk: Not clinically depressed. Depression Moderate Risk: Mildly depressed. Depression High Risk: Clinically depressed - Family History Family History: Family History (Last Reviewed 01/11/18 @ 13:30 by Katelyn Gomez) Father CAD (coronary artery disease) Myocardial infarction Mother Cancer Sister Breast cancer Motivation - Motivation to Participate On a scale of 1 to 10, how prepared are you to commit to attending program?: 10 What do you see as barriers to successfully being able to complete the program?: DM type II and low blood sugars What do you see as the benefits of succesfully completing the program? In other words, what do you hope to get out of participating in the program?: getting stronger Are there issues you are dealing with that will interfere with completing the program?: uses cane at home Do you have a spouse or signficant other, family or friends who will help support you to complete the program?: definately.
--- NOTE | 2018-03-08 11:32 | CR.ITP_ITS ---
General Information - General Information Admitting Diagnosis: PCI w/ coronary stent placement Special Needs: uses cane to ambulate; wheelchair for long distances - Education/Goals Barriers to Learning: None, Hearing Impairment, Vision Impairment Individual Counseling: Initial Assessment: Abnormal Cholesterol Levels, High Blood Pressure, Diabetes, Family History of Heart Disease (under 65 years) Cardiac Rehabilitation Goals: 1. Maintain the individual as the primary focus of care. 2. To improve the patient's quality of life. 3. Identification of cardiac risk factors and provide cardiac risk factor management. 4. Enhance the psychosocial status of the patient. 5. Reconditioning enough to allow the patient to resume customary activities. 6. Control symptoms of cardiac disease Scale for measuring improvement of personal goals: Enter appropriate number in Comments. 2 = Unchanged. 3 = Slightly Better. 4 = Moderate Improvement. 5 = Met my Goal Personal Goals: Initial Assessment: Improve energy level, Participate in home exercise program, Improve muscle strength and endurance, Improve diet and eating habits (eat healthier), Control risk factors (learn risk factor modification) Exercise - Initial Assessment - Visit Date of Eval: 03/08/18 - established ITP; start CR 03/12/18 - Stages of Change Stages of Change:: Action - Exercise Prescription Mode:: Biodyne, NuStep, Arm Ergometer Angina with exercise?: No Target Heart Rate:: 88-102 - Hypertension Do any of the following apply?: Yes, Medication Resting Blood Pressure:: 118/74 - Intervention Home Exercise/Activity Goal:: Sitting Time <3 hrs/day - Education Goals:: Warm-up, RPE PAMELA Scale, S/S, Safe Exercise, Self-Monitoring - Exercise Program Goals Exercise Program Goals: Aerobic Activity >30 min Nutrition - Initial Assessment - Program Goals Nutrition Program Goals: LDL <70. Total Cholesterol <200. HDL >45. Triglycerides <150. HgbA1C <7%. BMI <25 - Visit Date of Assessment:: 03/08/18 - Stages of Change Stages of Change:: Action - Diabetes Diabetes:: Yes Insulin: Yes Do you monitor your blood sugar at home?: Yes - Weight Management Height: 4 ft 11 in Weight:: 103 lb Body Fat %:: 20 Goal % Body Fat:: 0 - Intervention Referral to dietitian:: Yes - Protein and coloric malnutrition Referral to Diabetic Clinic:: Yes Will attend diet classes:: Yes - Education Gave educational materials for:: Signs & symptoms of hypoglycemia, Signs & symptoms of hyperglycemia, Relate diabetes to coronary artery disease, Healthy eating Tobacco - Initial Assessment - Program Goals Tobacco Program Goals: Complete smoking cessation. Attend education classes. Improve Knowledge Test score - Stage of Change Stages of Change:: Action - Learning Barriers Learning Barriers: Hearing, Vision, Ready to Learn - Family Support Do you have family support?: Yes - Tobacco Use Tobacco Use: Non-smoker - Intervention Smoking Cessation Referral:: No Education Schedule Given:: Yes - Education Gave educational material for:: Coronary artery disease, Risk factors, Sexuality, Medical compliance, Cardiac A&P, Angina signs & symptoms Psychosocial - Initial Assess - Target Goals Target Goals: Assess presence or absence of depression. Using a valid screening tool, maximizes coping skills. Positive support system - Stages of Change Stages of Change:: Action - Psychosocial Test Tool Used:: HANDS Depression Questionnaire - Intervention PS - Interventions: Yes Attend Stress Management Classes, Yes Uses Stress Management Skills, No Referral to Mental Health, No Referral to [facility] Case Management, No Referral to Physician - Education Gave educational materials for:: Coping techniques, Signs & symptoms of depression, Stress management, Relaxation techniques - Patient/Program Goal Preventative Medication(s):: Aspirin, Clopidogrel, Beta marco a, Statin/lipid - Assistive Devices Assistive Devices:: Cane, Wheelchair Fall Risk Assessed:: Yes Patient Health Questionnaire Initial Assessment 1. Little interest or pleasure in doing things: Not at all 2. Feeling down, depressed, or hopeless: Not at all 3. Trouble falling or staying asleep, or sleeping too much: Not at all 4. Feeling tired or having little energy: More than half the days 5. Poor appetite or overeating: Not at all 6. Feeling bad about yourself -- or that you are a failure or have let yourself or your family down: Not at all 7. Trouble concentrating on things, such as reading the newspaper or watching television: Not at all 8. Moving or speaking so slowly that other people could have noticed. Or the opposite - being so fidgety or restless that you have been moving around a lot more than usual: Not at all 9. Thoughts that you would be better off , or of hurting yourself in some way: Not at all How difficult have these problems made it for you to do your work, take care of things at home, or get along with other people?: Somewhat difficult Total Score: 2 JONATHAN-Q SV Test - Statements CAD is a disease of the arteries in the heart: True Examples of risk factors for heart disease: True Angina is chest pain or discomfort: True The benefits of resistance training include: True Eating more meat and dairy products: True Anti-platelet medications such as aspirin are important: True The only effective way to manage stress: True An exercise warm-up slowly increases heart rate: True Prepared, processed foods usually have high sodium: True Depression is common after a heart attack: True The statin medications lower cholesterol: True To control blood pressure, lower the amount of sodium: True If someone gets chest discomfort during walking: I Don't Know Transfats are partially hydrogenated vegetable oils: True Sleep apnea that is not treated increases the risk: False To control cholesterol, one should become a vegetarian: False Someone knows if he/she is exercising at the right level: False Diabetes cannot be prevented with exercise & health eating: False Stress is a large risk for heart attack: True A diet that can help lower blood pressure is rich in: True - Total Score Total Correct Responses: 15 Self-Efficacy Initial Assessment We would like to know how confident you are in doing certain activities. Please select your confidence level for:: Select your confidence level for the following using the scale 1-10 where 1 is not at all confident and 10 is totally confident. Your score is the average of all 6 responses. Fatigue: How confident are you that you can keep the fatigue caused by your disease from interfering with the things you want to do? Select Number: 5 Physical Discomfort or Pain: How confident are you that you can keep the physical discomfort or pain of your disease from interfering with the things you want to do? Select Number: 6 Emotional Distress: How confident are you that you can keep the emotional distress caused by your disease from interfering with the things you want to do? Select Number: 7 Other Symptoms or Health Problems: How confident are you that you can keep other symptoms or health problems from interfering with the things you want to do? Select Number: 8 Different Tasks and Activities: How confident are you that you can do the different tasks and activities needed to manage your health condition so as to reduce your need to see a doctor? Select Number: 10 Medication: How confident are you that you can do things other than just taking medication to reduce how much your illness affects your everyday life? Select Number: 10 Total Score:: 7 Nutrition Survey - Nutrition Survey Instructions Scoring Instructions: Scoring is as follows: Yes = 1 points. No = 0 point. Patient score that is >/=12 is considered to be at potential nutritional risk and could benefit from a referral to a registered dietitian. - Nutrition Survey Initial Have you lost >10 lbs over the past 2 months without trying?: No Are you following a special diet at home for diabetes, low fat, or low salt?: Yes Are you interested in meeting with a dietitian for help understanding your diet?: Yes Do you eat less than 3 meals a day?: No Do you eat fatty meats (young, sausage, ribs, etc), fried foods, desserts, large amounts of salad dressings, margarine, butter, or cheese most days?: No Do you have food allergies? [Enter types in comment field]: No Do you eat in restaurants more than 3 times a week?: No Do you season food with salt, seasoning salt, or garlic salt?: Yes Do you used canned, boxed, frozen meals, or soups, seasoning packets?: Yes Total Score:: 4
[2018-03-08 11:34] VITALS: BP 118/74; PULSE 51; RESP 16; TEMP 37.1; O2SAT 97; BMI 20.7
[2018-03-08 12:13] VITALS: BP 118/74
== END ==
PROVIDERS: Family Provider Internal Medicine; PCP Internal Medicine; Referring Provider Internal Medicine Cardiovascular Disease; Visit Provider Internal Medicine Cardiovascular Disease
DX: Z95.5 Presence of coronary angioplasty implant and graft (principal)

== ENCOUNTER 2018-03-21 15:15 | Outpatient (RCR) | payer MEDICARE, OTHER, SELFPAY | END 2018-03-21 23:59 | LOC: CR 15:15 | PROVIDERS: Family Provider Internal Medicine; PCP Internal Medicine; Referring Provider Internal Medicine Cardiovascular Disease; Visit Provider Internal Medicine Cardiovascular Disease | DX: Z95.5 Presence of coronary angioplasty implant and graft (principal); I77.9 Disorder of arteries and arterioles, unspecified | CPT/HCPCS: 93798 ==

== ENCOUNTER 2018-04-20 15:15 | Outpatient (RCR) | payer MEDICARE, OTHER, SELFPAY ==
--- NOTE | 2018-04-10 10:21 | PCM.CR.ITP ---
Exercise - 30-day Assessment - Visit Date of Eval: 04/10/18 Session #:: 12 - Stages of Change Stages of Change:: Action - Exercise Prescription Mode:: Biodyne, NuStep, Arm Ergometer Frequency (x/week): 3 Duration:: 35 METs - Progression: 0.5-1 MET as tolerated: 3 Target Heart Rate:: 88-102 with max HR 75 - Hypertension Resting Blood Pressure:: 98/50 Peak Exercise Blood Pressure:: 122/52 Medication Changes:: No - Intervention Home Exercise/Activity Goal:: Sitting Time <3 hrs/day - Education Goals:: Warm-up, RPE PMAELA Scale, S/S, Safe Exercise, Self-Monitoring - Exercise Program Goals Exercise Program Goals: Aerobic Activity >30 min Nutrition - Initial Assessment - Program Goals Nutrition Program Goals: LDL <70. Total Cholesterol <200. HDL >45. Triglycerides <150. HgbA1C <7%. BMI <25 - Diabetes Do you monitor your blood sugar at home?: Yes Nutrition - 30-Day Assessment - Program Goals Nutrition Program Goals: LDL <70. Total Cholesterol <200. HDL >45. Triglycerides <150. HgbA1C <7%. BMI <25 - Visit Date of Eval: 04/10/18 - Stages of Change Stages of Change:: Action - Lipids Has the patient seen the dietitian?: No - Diabetes Diabetes:: No - Weight Management Weight:: 104 lb 8 oz - started using protein powder - Intervention Referral to dietitian:: No Referral to Diabetic Clinic:: No Will attend diet classes:: Yes - Education Attended class for:: Healthy eating Tobacco - Initial Assessment - Program Goals Tobacco Program Goals: Complete smoking cessation. Attend education classes. Improve Knowledge Test score - Learning Barriers Learning Barriers: Hearing, Vision, Ready to Learn Tobacco - 30-Day Assessment - Program Goals Tobacco Program Goals: Complete smoking cessation. Attend education classes. Improve Knowledge Test score - Stage of Change Stages of Change:: Action - Learning Barriers Learning Barriers: Participates in education - Family Support Do you have family support?: Yes - Tobacco Use Tobacco Use: Non-smoker Do you use smokeless tobacco?: No - Intervention Smoking Cessation Referral:: No Education Schedule Given:: Yes - Education Attended class for:: Coronary artery disease, Risk factors, Sexuality, Medical compliance, Cardiac A&P, Angina signs & symptoms Psychosocial - Initial Assess - Target Goals Target Goals: Assess presence or absence of depression. Using a valid screening tool, maximizes coping skills. Positive support system - Psychosocial Test Tool Used:: HANDS Depression Questionnaire - Assistive Devices Fall Risk Assessed:: Yes Psychosocial - 30-Day Assess - Target Goals Target Goals: Assess presence or absence of depression. Using a valid screening tool, maximizes coping skills. Positive support system - Stages of Change Stages of Change:: Action - Psychosocial Test Tool Used:: HANDS Depression Questionnaire - Intervention PS - Interventions: Yes Attend Stress Management Classes, Yes Uses Stress Management Skills, No Referral to Mental Health, No Referral to [facility] Case Management, No Referral to Physician - Education Attended classes for:: Coping techniques, Signs & symptoms of depression, Stress management, Relaxation techniques - Patient/Program Goal Preventative Medication(s):: Aspirin, Clopidogrel, Beta marco a, Statin/lipid - Assistive Devices Assistive Devices:: Cane - daily, Walker - only for long distances Fall Risk Assessed:: Yes Patient Health Questionnaire 30-Day Re-eval Assessment 1. Little interest or pleasure in doing things: Not at all 2. Feeling down, depressed, or hopeless: Not at all 3. Trouble falling or staying asleep, or sleeping too much: Not at all 4. Feeling tired or having little energy: More than half the days 5. Poor appetite or overeating: Not at all 6. Feeling bad about yourself -- or that you are a failure or have let yourself or your family down: Not at all 7. Trouble concentrating on things, such as reading the newspaper or watching television: Not at all 8. Moving or speaking so slowly that other people could have noticed. Or the opposite - being so fidgety or restless that you have been moving around a lot more than usual: Not at all 9. Thoughts that you would be better off , or of hurting yourself in some way: Not at all How difficult have these problems made it for you to do your work, take care of things at home, or get along with other people?: Somewhat difficult Total Score: 2 Self-Efficacy 30-Day Re-eval Assessment We would like to know how confident you are in doing certain activities. Please select your confidence level for:: Select your confidence level for the following using the scale 1-10 where 1 is not at all confident and 10 is totally confident. Your score is the average of all 6 responses. Fatigue: How confident are you that you can keep the fatigue caused by your disease from interfering with the things you want to do? Select Number: 7 Physical Discomfort or Pain: How confident are you that you can keep the physical discomfort or pain of your disease from interfering with the things you want to do? Select Number: 7 Emotional Distress: How confident are you that you can keep the emotional distress caused by your disease from interfering with the things you want to do? Select Number: 8 Other Symptoms or Health Problems: How confident are you that you can keep other symptoms or health problems from interfering with the things you want to do? Select Number: 9 Different Tasks and Activities: How confident are you that you can do the different tasks and activities needed to manage your health condition so as to reduce your need to see a doctor? Select Number: 10 Medication: How confident are you that you can do things other than just taking medication to reduce how much your illness affects your everyday life? Select Number: 10 Total Score:: 8
[2018-04-10 10:28] VITALS: BP 122/52; BP 98/50
== END 2018-04-20 23:59 ==
LOC: CR 15:15
PROVIDERS: Family Provider Internal Medicine; PCP Internal Medicine; Referring Provider Internal Medicine Cardiovascular Disease; Visit Provider Internal Medicine Cardiovascular Disease
DX: Z95.5 Presence of coronary angioplasty implant and graft (principal); I77.9 Disorder of arteries and arterioles, unspecified
CPT/HCPCS: 93798

== ENCOUNTER 2018-05-18 15:15 | Outpatient (RCR) | payer MEDICARE, OTHER, SELFPAY ==
[2018-03-14 09:36] VITALS: BMI 20.6
[2018-04-21 01:43] VITALS: BP 122/52; BP 98/50
--- NOTE | 2018-05-07 09:55 | CR.ITP_ITS ---
General Information - General Information Admitting Diagnosis: PCI with coronary stent placement - Education/Goals Cardiac Rehabilitation Goals: 1. Maintain the individual as the primary focus of care. 2. To improve the patient's quality of life. 3. Identification of cardiac risk factors and provide cardiac risk factor management. 4. Enhance the psychosocial status of the patient. 5. Reconditioning enough to allow the patient to resume customary activities. 6. Control symptoms of cardiac disease Scale for measuring improvement of personal goals: Enter appropriate number in Comments. 2 = Unchanged. 3 = Slightly Better. 4 = Moderate Improvement. 5 = Met my Goal Exercise - 60-Day Assessment - Visit Date of Eval: 05/07/18 Session #:: 21 - Stages of Change Stages of Change:: Action - Exercise Prescription Mode:: Biodyne, NuStep, Arm Ergometer Frequency (x/week): 3 Duration:: 35 METs: 3.5 Target Heart Rate:: 88-102 Max HR 77 - Hypertension Resting Blood Pressure:: 108/44 Peak Exercise Blood Pressure:: 124/52 - Intervention Home Exercise/Activity Goal:: Sitting Time <3 hrs/day - Education Goals:: Warm-up, RPE PAMELA Scale, S/S, Safe Exercise, Self-Monitoring - Exercise Program Goals Exercise Program Goals: Aerobic Activity >30 min, B/P <130/80 Nutrition - Initial Assessment - Program Goals Nutrition Program Goals: LDL <70. Total Cholesterol <200. HDL >45. Triglycerides <150. HgbA1C <7%. BMI <25 - Diabetes Do you monitor your blood sugar at home?: Yes Nutrition - 60-Day Assessment - Program Goals Nutrition Program Goals: LDL <70. Total Cholesterol <200. HDL >45. Triglycerides <150. HgbA1C <7%. BMI <25 - Visit Date of Eval: 05/07/18 - Stages of Change Stages of Change:: Action - Weight Management Weight:: 48.081 kg - Intervention Referral to dietitian:: No Referral to Diabetic Clinic:: No Will attend diet classes:: Yes - Education Attended class for:: Signs & symptoms of hypoglycemia, Signs & symptoms of hyperglycemia, Relate diabetes to coronary artery disease, Healthy eating Tobacco - Initial Assessment - Program Goals Tobacco Program Goals: Complete smoking cessation. Attend education classes. Improve Knowledge Test score - Learning Barriers Learning Barriers: Hearing, Vision, Ready to Learn Tobacco - 60-Day Assessment - Program Goals Tobacco Program Goals: Complete smoking cessation. Attend education classes. Improve Knowledge Test score - Stage of Change Stages of Change:: Action - Learning Barriers Learning Barriers: Participates in education - Family Support Do you have family support?: Yes - Tobacco Use Tobacco Use: Non-smoker Do you use smokeless tobacco?: No - Intervention Smoking Cessation Referral:: No Individual Education/Counseling:: No Education Schedule Given:: Yes - Education Attended class for:: Tobacco triggers, Coronary artery disease, Risk factors, Sexuality, Medical compliance, Cardiac A&P, Angina signs & symptoms Psychosocial - Initial Assess - Target Goals Target Goals: Assess presence or absence of depression. Using a valid screening tool, maximizes coping skills. Positive support system - Psychosocial Test Tool Used:: HANDS Depression Questionnaire - Assistive Devices Fall Risk Assessed:: Yes Psychosocial - 60-Day Assess - Target Goals Target Goals: Assess presence or absence of depression. Using a valid screening tool, maximizes coping skills. Positive support system - Stages of Change Stages of Change:: Action - Psychosocial Test Tool Used:: HANDS Depression Questionnaire - Intervention PS - Interventions: Yes Attend Stress Management Classes, Yes Uses Stress Management Skills, No Referral to Mental Health, No Referral to [facility] Case Management, No Referral to Physician - Education Attended classes for:: Coping techniques, Signs & symptoms of depression, Stress management, Relaxation techniques - Assistive Devices Fall Risk Assessed:: Yes Patient Health Questionnaire 60-Day Re-eval Assessment 1. Little interest or pleasure in doing things: Not at all 2. Feeling down, depressed, or hopeless: Not at all 3. Trouble falling or staying asleep, or sleeping too much: Not at all 4. Feeling tired or having little energy: More than half the days 5. Poor appetite or overeating: Not at all 6. Feeling bad about yourself -- or that you are a failure or have let yourself or your family down: Not at all 7. Trouble concentrating on things, such as reading the newspaper or watching television: Not at all 8. Moving or speaking so slowly that other people could have noticed. Or the opposite - being so fidgety or restless that you have been moving around a lot more than usual: Not at all 9. Thoughts that you would be better off , or of hurting yourself in some way: Not at all How difficult have these problems made it for you to do your work, take care of things at home, or get along with other people?: Somewhat difficult Total Score: 2 Self-Efficacy 60-Day Re-eval Assessment We would like to know how confident you are in doing certain activities. Please select your confidence level for:: Select your confidence level for the following using the scale 1-10 where 1 is not at all confident and 10 is totally confident. Your score is the average of all 6 responses. Fatigue: How confident are you that you can keep the fatigue caused by your disease from interfering with the things you want to do? Select Number: 7 Physical Discomfort or Pain: How confident are you that you can keep the physical discomfort or pain of your disease from interfering with the things you want to do? Select Number: 7 Emotional Distress: How confident are you that you can keep the emotional distress caused by your disease from interfering with the things you want to do? Select Number: 8 Other Symptoms or Health Problems: How confident are you that you can keep other symptoms or health problems from interfering with the things you want to do? Select Number: 9 Different Tasks and Activities: How confident are you that you can do the different tasks and activities needed to manage your health condition so as to reduce your need to see a doctor? Select Number: 10 Medication: How confident are you that you can do things other than just taking medication to reduce how much your illness affects your everyday life? Select Number: 10 Total Score:: 8
[2018-05-07 09:56] VITALS: BP 108/44; BP 124/52
== END 2018-05-21 23:59 ==
LOC: CR 15:15
PROVIDERS: Family Provider Internal Medicine; PCP Internal Medicine; Referring Provider Internal Medicine Cardiovascular Disease; Visit Provider Internal Medicine Cardiovascular Disease
DX: I77.9 Disorder of arteries and arterioles, unspecified (principal); Z95.5 Presence of coronary angioplasty implant and graft
CPT/HCPCS: 93798

== ENCOUNTER → 2018-05-29 12:33 | Outpatient (CLI) | payer MEDICARE, OTHER, SELFPAY ==
[2018-05-29 11:26] VITALS: BMI 21.4
[2018-05-29 14:09] LABS: AST(SGOT) 27 U/L (15-37); Alanine Aminotransfer ALT/SGPT 27 U/L (13-56); Albumin, Serum 3.7 g/dL (3.2-5.0); Alkaline Phosphatase 60 U/L (45-117); Bilirubin, Direct 0.17 mg/dL (0.00-0.30); Globulin 3.5 g/dL (2.2-4.2); Protein, Total 7.2 g/dL (6.4-8.2)
== END ==
PROVIDERS: Family Provider Internal Medicine; PCP Internal Medicine; Referring Provider Nurse Practitioner Family; Visit Provider Nurse Practitioner Family
DX: I25.10 Atherosclerotic heart disease of native coronary artery without angina pectoris (principal); E78.00 Pure hypercholesterolemia, unspecified; I10 Essential (primary) hypertension; E11.9 Type 2 diabetes mellitus without complications; Z79.4 Long term (current) use of insulin
CPT/HCPCS: 36415; 80076

== ENCOUNTER 2018-06-18 15:15 | Outpatient (RCR) | payer MEDICARE, OTHER, SELFPAY ==
[2018-05-10 11:27] VITALS: BMI 21.2
[2018-05-22 01:10] VITALS: BP 108/44; BP 124/52
--- NOTE | 2018-06-04 11:33 | CR.ITP_ITS ---
General Information - General Information Admitting Diagnosis: PCI with coronary stent placement - Education/Goals Cardiac Rehabilitation Goals: 1. Maintain the individual as the primary focus of care. 2. To improve the patient's quality of life. 3. Identification of cardiac risk factors and provide cardiac risk factor management. 4. Enhance the psychosocial status of the patient. 5. Reconditioning enough to allow the patient to resume customary activities. 6. Control symptoms of cardiac disease Scale for measuring improvement of personal goals: Enter appropriate number in Comments. 2 = Unchanged. 3 = Slightly Better. 4 = Moderate Improvement. 5 = Met my Goal Exercise - 90-Day Assessment - Visit Date of Eval: 06/04/18 Session #:: 31 - Stages of Change Stages of Change:: Action - Exercise Prescription Mode:: Biodyne, NuStep, Arm Ergometer Frequency (x/week): 3 Duration:: 35 METs: 3.5 Target Heart Rate:: 88-102 Max HR 85 - Hypertension Resting Blood Pressure:: 112/60 Peak Exercise Blood Pressure:: 128/60 - Intervention Home Exercise/Activity Goal:: Sitting Time <3 hrs/day - Education Goals:: Warm-up, RPE PAMELA Scale, S/S, Safe Exercise, Self-Monitoring - Exercise Program Goals Exercise Program Goals: Aerobic Activity >30 min, B/P <130/80 Nutrition - Initial Assessment - Program Goals Nutrition Program Goals: LDL <70. Total Cholesterol <200. HDL >45. Triglycerides <150. HgbA1C <7%. BMI <25 - Diabetes Do you monitor your blood sugar at home?: Yes Nutrition - 90-Day Assessment - Program Goals Nutrition Program Goals: LDL <70. Total Cholesterol <200. HDL >45. Triglycerides <150. HgbA1C <7%. BMI <25 - Visit Date of Eval: 06/04/18 - Stages of Change Stages of Change:: Action - Weight Management Weight:: 50.122 kg - Intervention Referral to dietitian:: No Referral to Diabetic Clinic:: No Will attend diet classes:: Yes - Education Attended class for:: Signs & symptoms of hypoglycemia, Signs & symptoms of hyperglycemia, Relate diabetes to coronary artery disease, Healthy eating Tobacco - Initial Assessment - Program Goals Tobacco Program Goals: Complete smoking cessation. Attend education classes. Improve Knowledge Test score - Learning Barriers Learning Barriers: Hearing, Vision, Ready to Learn Tobacco - 90-Day Assessment - Program Goals Tobacco Program Goals: Complete smoking cessation. Attend education classes. Improve Knowledge Test score - Stage of Change Stages of Change:: Action - Learning Barriers Learning Barriers: Participates in education - Family Support Do you have family support?: Yes - Tobacco Use Tobacco Use: Non-smoker Do you use smokeless tobacco?: No - Intervention Smoking Cessation Referral:: No Individual Education/Counseling:: No Education Schedule Given:: Yes - Education Attended class for:: Tobacco triggers, Coronary artery disease, Risk factors, Sexuality, Medical compliance, Cardiac A&P, Angina signs & symptoms Psychosocial - Initial Assess - Target Goals Target Goals: Assess presence or absence of depression. Using a valid screening tool, maximizes coping skills. Positive support system - Psychosocial Test Tool Used:: HANDS Depression Questionnaire - Assistive Devices Fall Risk Assessed:: Yes Psychosocial - 90-Day Assess - Target Goals Target Goals: Assess presence or absence of depression. Using a valid screening tool, maximizes coping skills. Positive support system - Stages of Change Stages of Change:: Action - Psychosocial Test Tool Used:: HANDS Depression Questionnaire - Intervention PS - Interventions: Yes Attend Stress Management Classes, Yes Uses Stress Management Skills, No Referral to Mental Health, No Referral to [facility] Case Management, No Referral to Physician - Education Attended classes for:: Coping techniques, Signs & symptoms of depression, Stress management, Relaxation techniques - Assistive Devices Assistive Devices:: Walker Fall Risk Assessed:: Yes Patient Health Questionnaire 90-Day Re-eval Assessment 1. Little interest or pleasure in doing things: Not at all 2. Feeling down, depressed, or hopeless: Not at all 3. Trouble falling or staying asleep, or sleeping too much: Not at all 4. Feeling tired or having little energy: Not at all 5. Poor appetite or overeating: Not at all 6. Feeling bad about yourself -- or that you are a failure or have let yourself or your family down: Not at all 7. Trouble concentrating on things, such as reading the newspaper or watching television: Not at all 8. Moving or speaking so slowly that other people could have noticed. Or the opposite - being so fidgety or restless that you have been moving around a lot more than usual: Not at all 9. Thoughts that you would be better off , or of hurting yourself in some way: Not at all Total Score: 0 Self-Efficacy 90-Day Re-eval Assessment We would like to know how confident you are in doing certain activities. Please select your confidence level for:: Select your confidence level for the following using the scale 1-10 where 1 is not at all confident and 10 is totally confident. Your score is the average of all 6 responses. Fatigue: How confident are you that you can keep the fatigue caused by your disease from interfering with the things you want to do? Select Number: 7 Physical Discomfort or Pain: How confident are you that you can keep the physical discomfort or pain of your disease from interfering with the things you want to do? Select Number: 7 Emotional Distress: How confident are you that you can keep the emotional distress caused by your disease from interfering with the things you want to do? Select Number: 8 Other Symptoms or Health Problems: How confident are you that you can keep other symptoms or health problems from interfering with the things you want to do? Select Number: 9 Different Tasks and Activities: How confident are you that you can do the different tasks and activities needed to manage your health condition so as to reduce your need to see a doctor? Select Number: 10 Medication: How confident are you that you can do things other than just taking medication to reduce how much your illness affects your everyday life? Select Number: 10 Total Score:: 8
[2018-06-04 11:35] VITALS: BP 112/60; BP 128/60
== END 2018-06-21 23:59 ==
LOC: CR 15:15
PROVIDERS: Family Provider Internal Medicine; PCP Internal Medicine; Referring Provider Internal Medicine Cardiovascular Disease; Visit Provider Internal Medicine Cardiovascular Disease
DX: I77.9 Disorder of arteries and arterioles, unspecified (principal); Z95.5 Presence of coronary angioplasty implant and graft
CPT/HCPCS: 93798

== ENCOUNTER 2019-11-19 13:56 | Emergency (ER) | payer MEDICARE, OTHER, SELFPAY ==
[2019-06-13 13:07] VITALS: BMI 22.6
[2019-11-19 13:57] VITALS: BP 135/65; PULSE 62; RESP 18; TEMP 36.2; O2SAT 94; BMI 23.1
--- NOTE | 2019-11-19 14:09 | EKG12_ITS ---
Test Reason : HYPERTENSION Blood Pressure : / mmHG Vent. Rate : 059 BPM Atrial Rate : 059 BPM P-R Int : 154 ms QRS Dur : 068 ms QT Int : 446 ms P-R-T Axes : 007 -20 034 degrees QTc Int : 441 ms Sinus bradycardia Nonspecific T wave abnormality Abnormal ECG Confirmed by PERLA ALEXANDER ([id number]), makeup editor ZEESHAN THAKKAR ([id number]) on 11/21/2019 11:48:20 AM Referred By: MARTHA Confirmed By:PERLA ALEXANDER
--- NOTE | 2019-11-19 14:09 | ED.VIS.GEN ---
History of Present Illness Chief Complaint: Hypertension Informant: Patient Onset: Days Context: Gradual Onset Timing: Intermittent Current Severity: Mild Maximum Severity: Moderate Narrative: The patient is an 84-year-old female with medical history significant for hypertension, prior [place] with stents, who presents to the emergency department with intermittent elevated blood pressure. The patient states is been on for the past week. She states her blood pressure has been in the 170s. She states when her blood pressure is high, she will have sensation of heart racing. She denies any fevers or chills. She denies any chest heaviness or shortness of breath. She denies any headache. She is had no leg swelling. She states she is otherwise been in her normal state of health. Prior similar symptoms: No Recent Illness/Hospitalization: No Past Medical History - Allergies and Home Meds Allergies/Adverse Reactions: Allergies metronidazole [From Flagyl] Allergy (Verified 11/19/19 14:00) Other Metronidazole HCl [From Flagyl] Allergy (Verified 11/19/19 14:00) Other oxycodone HCl [From OxyContin] Allergy (Verified 11/19/19 14:00) Other Primary Care Physician: Zulma Corral MD [Primary Care Provider] - Prior records reviewed: Yes Past Medical History: - - Coronary vascular disease, hypertension, prior [place] Surgical History: angioplasty, cataract, herniorrhaphy, - - Coronary artery stent placement, knee arthroscopy Smoking Status: Former smoker - Family History Maternal Family History: Family History (Last Reviewed 06/13/19 @ 13:09 by Katelyn Gomez) Father CAD (coronary artery disease) Myocardial infarction Mother Cancer Sister Breast cancer Family History: Reports: No pertinent history Paternal Family History: Family History (Last Reviewed 06/13/19 @ 13:09 by Katelyn Gomez) Father CAD (coronary artery disease) Myocardial infarction Mother Cancer Sister Breast cancer Family History: Reports: No pertinent history Review of Systems General: Denies: Chills, Fever, Sweats Eyes: Denies: Visual changes - bilaterally, Diplopia ENT: Denies: Rhinorrhea, Sore throat Cardiovascular: Denies: Chest pain, Palpitations Respiratory: Denies: Dyspnea, Cough, Dyspnea on exertion Gastrointestinal: Denies: Abdominal pain, Nausea, Vomiting, Diarrhea, Melena, Hematochezia Genitourinary: Denies: Dysuria, Hematuria, Frequency Musculoskeletal: Denies: Back pain, Extremity Pain Skin: Denies: Rash, Wounds Neurological: Denies: Headache, Weakness, Numbness Physical Exam Vital Signs/Narrative: Vital Signs Temp Pulse Resp BP Pulse Ox 11/19/19 13:57 97.2 F L 62 18 135/65 H 94 Inital Vital Signs reviewed: Yes General: Well nourished, Well developed, No Acute Distress Head: Normocephalic, Atraumatic Eyes: Perrl, EOMI ENT: Moist mucous membranes, No rhinorrhea Neck: Supple, Nontender Cardiovascular: Regular rate, Regular rhythm, No murmurs Respiratory: No distress, CTA bilaterally, Chest nontender Abdomen: Soft, Nontender, Nondistended, Normal bowel sounds Back: Nontender, Normal Inspection Extremities: Nontender, No edema Skin: Normal color, No rash Neurological: Alert, Oriented x3, Cranial nerves II-XII grossly intact, Normal Strength, Normal Sensation Psychological: Normal affect, Normal Mood Diagnostic/Tx/Re-eval Clinical Impression(s) from Imaging Studies Chest X-Ray 11/19/19 14:40 IMPRESSION: Mild increased markings in the upper medial aspect of the right upper lobe. Radiographic follow-up is recommended. Electronically Signed: Colin Muñizdeirdre, at 15:15 EDT , Service support , Abnormal Lab Results 11/19/19 11/19/19 11/19/19 14:30 14:30 14:30 WBC 9.0 RBC 4.22 Hgb 12.5 Hct 38.4 MCV 91.0 MCH 29.6 MCHC 32.6 RDW Std Deviation 43.4 RDW Coeff of Yaneli 13.2 Plt Count 206 MPV 11.6 Immature Gran % (Auto) 0.400 Neut % (Auto) 67.9 Lymph % (Auto) 16.4 L Millard % (Auto) 8.8 Eos % (Auto) 5.4 H Baso % (Auto) 1.1 H Absolute Neuts (auto) 6.1 Absolute Lymphs (auto) 1.47 Nucleated RBC % 0 Sodium 138 Potassium 4.3 Chloride 104 Carbon Dioxide 28.0 Anion Gap 6 BUN 21 H Creatinine 1.07 H Estim Creat Clear Calc 30.55 Est GFR (MDRD) Af Amer 63 Est GFR (MDRD) Non-Af 52 L BUN/Creatinine Ratio 19.6 Glucose 193 H Calcium 9.2 Total Bilirubin 0.50 AST 25 ALT 21 Alkaline Phosphatase 56 Troponin I < 0.015 B-Natriuretic Peptide 200.5 H Total Protein 7.1 Albumin 3.5 Globulin 3.6 Albumin/Globulin Ratio 1.0 Urine Color Urine Clarity Urine pH Ur Specific [place] Urine Protein Urine Glucose (UA) Urine Ketones Urine Occult Blood Urine Nitrite Urine Bilirubin Urine Urobilinogen Ur Leukocyte Esterase 11/19/19 15:22 WBC RBC Hgb Hct MCV MCH MCHC RDW Std Deviation RDW Coeff of Yaneli Plt Count MPV Immature Gran % (Auto) Neut % (Auto) Lymph % (Auto) Millard % (Auto) Eos % (Auto) Baso % (Auto) Absolute Neuts (auto) Absolute Lymphs (auto) Nucleated RBC % Sodium Potassium Chloride Carbon Dioxide Anion Gap BUN Creatinine Estim Creat Clear Calc Est GFR (MDRD) Af Amer Est GFR (MDRD) Non-Af BUN/Creatinine Ratio Glucose Calcium Total Bilirubin AST ALT Alkaline Phosphatase Troponin I B-Natriuretic Peptide Total Protein Albumin Globulin Albumin/Globulin Ratio Urine Color Yellow Urine Clarity Sl. Cloudy Urine pH 7.0 Ur Specific [place] 1.005 Urine Protein 30 H Urine Glucose (UA) Normal Urine Ketones Negative Urine Occult Blood 10 H Urine Nitrite Negative Urine Bilirubin Negative Urine Urobilinogen Normal Ur Leukocyte Esterase 500 H - Medical Decision Making The patient presents with asymptomatic hypertension. On arrival, her blood pressure is normal. Metabolic work-up was pursued. EKG was sinus rhythm. There was no evidence of acute ischemia. Cardiac enzymes and kidney function were unremarkable. Chest x-ray shows no evidence of volume overload. There was some scant increased markings in the right upper lobe, but the patient has not had cough or dyspnea. I do not feel this represents pneumonia. Urine does show some leukocyte esterase, but the patient has had no symptoms. Culture will be added. Social work did spend time talking to the patient. She states she is been more anxious at home. I am hesitant to aggressively treat her blood pressure as it has been normal and it seems like she just has these mild spikes but then resolved. I will have her follow-up with her gift officer. Impression 1. Hypertension ED Disposition - Plan for ED Patient: Instructions: ED Hypertension Established Referrals: Zulma Corral MD [Primary Care Provider] -
--- NOTE | 2019-11-19 14:40 | RAD_ITS ---
STUDY: X-RAY CHEST REASON FOR EXAM: Female, 84 years old. HTN TECHNIQUE: Single AP portable view of the chest. COMPARISON: Comparison is made with prior study dated February 26, 2018. FINDINGS: EKG electrodes are seen. Mild degree of increased markings in the medial aspect of the right upper lobe. This has progressed as compared to prior study. Radiographic follow-up is recommended. There is no demonstrated pleural abnormality. Normal size heart. Normal mediastinum and jackeline. Normal visualized pulmonary arteries. There is atherosclerotic tortuosity of the aortic arch and descending thoracic aorta. There are diffuse degenerative changes of the visualized thoracic spine. There is degenerative osteoarthritis of the bilateral shoulders. There is no demonstrated abnormality of the visualized soft tissue structures of the upper abdomen. RAD/Chest 1 View (Portable) IMPRESSION: Mild increased markings in the upper medial aspect of the right upper lobe. Radiographic follow-up is recommended. Electronically Signed: Colin aMe, at 15:15 EDT , Service support ,
[2019-11-19 14:48] VITALS: PULSE 60
[2019-11-19 14:48] LABS: Absolute Lymphocyte Count 1.47 X10^3/uL (0.83-4.51); Absolute Neutrophil Count 6.1 X10^3/uL (2.0-7.7); Basophil% 1.1 % (0-1); Eosinophil# 0.48 X10^3/uL; Eosinophils% 5.4 % (0-5); Hematocrit 38.4 % (37-47); Hemoglobin 12.5 g/dL (12.0-15.0); Lymphocyte # 1.47 X10^3/ul (4.0); Lymphocyte % 16.4 % (19-41); Mean Corp Hgb Conc 32.6 g/dL (32-36); Mean Corpuscular Hgb 29.6 pg (27.0-32.0); Mean Platelet Vol. 11.6 fl (6.2-12.0); Monocyte# 0.79 X10^3/uL; Monocyte% 8.8 % (0-10); NRBC Flagged by Analyzer 0 % (0-5); Neutrophil # 6.09 X10^3/uL (2.7-7.7); Neutrophil % 67.9 % (47-70); Platelet Count 206 K/mm3 (150-450); RBC Distribution Width CV 13.2 % (11.6-14.6); RBC Distribution Width SD 43.4 fl (35.1-43.9); Red Blood Count 4.22 M/mm3 (4.2-5.4)
--- NOTE | 2019-11-19 14:55 | CM.ED ---
SOCIAL WORK Informant: Dr. Bautista Reason for Referral: Discharge Planning Chief Compliant: HTN Living Situation: Home alone in a 1 story home. Marital/Social History: . 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 Mental Health History: Patient reports has currently been dealing with anxiety. Patient states I can't deal with stuff. Patient states the smallest thing will upset me. Patient states will get upset and cry. Patient reports primary care physician-Dr. Corral did prescribe something and is unable to recall name. Patient stating it's just a really small dose. Patient states would benefit from medication adjustment. Assessment: Met with patient in room. Introduced role and reason for referral. Patient states daughter wanted her to come to the hospital due to high blood pressure. Patient states lives home alone and is independent. Will use a cane as needed for assistance with ambulation. Patient discussed current mental health history. Patient reports has been more anxious and will get upset and cry. Patient reports this is not normal for me. Patient reports is treated with medication, but is on a low dose. Patient feels would benefit from medication adjustment. Patient states good support from family. Discussed option for counseling, patient declined. Patient states has appointment with primary care physician on December 01 and will further discuss anxiety. Collaboration with Dr. Bautista. Dr. Bautista to review medications. No further needs at this time. Plan: Work up being completed. Anticipate home as before. Nikhil Giang, MOBILE DESIGNER, PNEUMATIC TUBE FITTER
[2019-11-19 15:06] LABS: AST(SGOT) 25 U/L (15-37); Alanine Aminotransfer ALT/SGPT 21 U/L (13-56); Albumin, Serum 3.5 g/dL (3.2-5.0); Alkaline Phosphatase 56 U/L (45-117); Anion Gap 6 (5-15); BUN 21 mg/dL (7-18); BUN/Creat Ratio 19.6 RATIO (10-20); Calcium,Total 9.2 mg/dL (8.5-10.1); Chloride 104 mmol/L (98-107); Creatinine, Serum 1.07 mg/dL (0.55-1.02); EST Glomerular Filtration Rate 52 mL/min (>60); Est Glom Filt Rate - Afr Amer 63 mL/min (>60); Estimated Creatinine Clearance 30.55 ml/min; Globulin 3.6 g/dL (2.2-4.2); Glucose 193 mg/dL (74-106); Potassium 4.3 mmol/L (3.5-5.1); Protein, Total 7.1 g/dL (6.4-8.2); Sodium Level 138 mmol/L (136-145)
[2019-11-19 15:22] LABS: BNP,B-Type NATRIURETIC PEPTIDE 200.5 pg/mL (0-100)
[2019-11-19 15:32] VITALS: BP 137/119; PULSE 58; RESP 12; O2SAT 96
[2019-11-19 15:35] LABS: Bacteria 0 SEEN /hpf (None Seen); Mucous, Urine 0 SEEN /hpf (<or=2+)
[2019-11-19 15:55] LABS: Color, Urine Yellow (Yellow); Glucose, Dipstick Normal (Normal); Ketone-Dipstick Negative (Negative); Leukocyte Esterase-Dipstick 500 /ul (Negative); Nitrite-Dipstick Negative (Negative); Occult Blood-Urine 10 /ul (Negative); Protein-Dipstick 30 mg/dl (Negative); Specific Gravity, Urine 1.005 (1.002-1.030); Urine Bilirubin Dipstick Negative (Negative); Urine Clarity Sl. Cloudy (Clear); Urine Urobilinogen Normal (Normal)
[2019-11-19 16:26] LABS: Amorphous Sediment 1+ PHOS; Red Blood Cells-Urine 0-5 SEEN /hpf (0-5); Squamous Epithelial Cells - UA 0-5 SEEN /hpf (5-10); White Blood Cells 25-50 SEEN /hpf (0-5)
[2019-11-19 16:33] VITALS: BP 147/89; PULSE 60; RESP 18
== END 2019-11-19 16:41 | disposition home or self-care (01) ==
LOC: ED 14:21
PROVIDERS: Emergency Provider Emergency Medicine; PCP Internal Medicine
DX: I10 Essential (primary) hypertension (principal); I25.10 Atherosclerotic heart disease of native coronary artery without angina pectoris; Z87.891 Personal history of nicotine dependence; Z95.5 Presence of coronary angioplasty implant and graft; Z79.899 Other long term (current) drug therapy
CPT/HCPCS: 71045; 80053; 81001; 83880; 84484; 85025; 93005; 99284; A4216

== ENCOUNTER 2020-04-06 11:03 | Emergency (ER) | payer MEDICARE, OTHER, SELFPAY ==
[2019-12-18 15:57] VITALS: BMI 23.6
[2020-04-06 11:05] VITALS: BP 90/47; PULSE 78; RESP 17; TEMP 36.6; O2SAT 98; BMI 22.8
--- NOTE | 2020-04-06 11:16 | VDLE_ITS ---
Reason For Study: Pain RIGHT GSV is normal. CFV is compressible, spontaneous, phasic, competent and demonstrates normal augmentation. FV is compressible, spontaneous, phasic, competent and demonstrates normal augmentation. POP V is compressible, spontaneous, phasic, competent and demonstrates normal augmentation. T/P Trunk is compressible. PTV is compressible. RT PerV is compressible. Procedure Exam performed portable in ED. This is a venous duplex using B-mode, color flow and spectral Doppler. A preliminary report was called and/or faxed to [facility]. Interpretation Summary There is no evidence of right lower extremity deep vein thrombosis. Right great saphenous vein appears patent and compressible segmentally. Ordering Physician: Garrison Lindo Referring Physician: Zulma Corral Performed By: Neisha Sanchez RVT
--- NOTE | 2020-04-06 11:17 | ED.VIS.GEN ---
History of Present Illness Chief Complaint: Lower Extremity Injury Informant: Patient Onset: Days Context: Sudden Onset Timing: Continuous Quality: Pain Location: Right thigh Current Severity: Mild Maximum Severity: Moderate Worsened by: Palpation Relieved by: Nothing Associated Symptoms: Nothing Narrative: Patient is an elderly woman who presents with atraumatic right thigh pain. This started last Monday. She was unaware that the leg was swollen. She denies chest pain. She denies dyspnea or dyspnea exertion. She denies history of VTE. She denies prior history of cancer. She has had no recent travel. No surgery in the past month. She is on no anticoagulant. Prior similar symptoms: No Recent Illness/Hospitalization: No - Past Medical History (1) Atherosclerosis of [place] coronary artery of [place] heart without angina pectoris Status: Chronic Comment: PTCA/Stent of the prox LAD and 1st Diagonal 02/15/00 @ [facility]; PTCA/DALJIT to mid LAD and successful PCI with PTCA to mid OM 1 in February 2018; (2) Bilateral carotid artery stenosis Status: Chronic (3) Essential (primary) hypertension Status: Chronic (4) Presence of stent in coronary artery Status: Chronic Comment: PTCA/Stent of the prox LAD and 1st Diagonal 02/15/00 @ [facility]; PTCA/DALJIT to mid LAD and successful PCI with PTCA to mid OM 1 02/27/18; (5) Pure hypercholesterolemia Status: Chronic (6) Type 2 diabetes mellitus, with long-term current use of insulin Status: Chronic Past Medical History - Allergies and Home Meds Allergies/Adverse Reactions: Allergies metronidazole [From Flagyl] Allergy (Verified 04/06/20 11:04) Other oxycodone HCl [From OxyContin] Allergy (Verified 04/06/20 11:04) Other Primary Care Physician: Zulma Corral MD [Primary Care Provider] - Prior records reviewed: Yes - States normal blood pressure is low 100s. Surgical History: angioplasty, cataract, herniorrhaphy, - - Coronary artery stent placement, knee arthroscopy Lives: Alone Smoking Status: Never smoker Alcohol: None Drugs: None - Family History Maternal Family History: Family History (Last Reviewed 12/18/19 @ 15:59 by Katelyn Gomez) Father CAD (coronary artery disease) Myocardial infarction Mother Cancer Sister Breast cancer Family History: Reports: No pertinent history Paternal Family History: Family History (Last Reviewed 12/18/19 @ 15:59 by Katelyn Gomez) Father CAD (coronary artery disease) Myocardial infarction Mother Cancer Sister Breast cancer Family History: Reports: No pertinent history Review of Systems General: Denies: Chills, Fever, Malaise, Subjective Eyes: Denies: Visual changes - bilaterally, Blurred Vision - bilaterally ENT: Denies: Rhinorrhea, Sore throat Cardiovascular: Denies: Chest pain, Palpitations Respiratory: Denies: Dyspnea, Cough, Dyspnea on exertion, Orthopnea, Paroxysmal nocturnal dyspnea Gastrointestinal: Denies: Abdominal pain, Nausea, Vomiting, Melena, Hematochezia Genitourinary: Denies: Dysuria, Hematuria Musculoskeletal: Reports: Extremity Pain. Denies: Myalgias, Arthralgias, Neck pain, Back pain, Swelling Skin: Denies: Rash, Wounds Neurological: Denies: Headache, Weakness Endocrine: Denies: Polyuria, Polydipsia Hematologic: Denies: Easy bruising, Easy bleeding Physical Exam Vital Signs/Narrative: Vital Signs Temp Pulse Resp BP Pulse Ox 04/06/20 11:05 97.9 F 78 17 90/47 L 98 Inital Vital Signs reviewed: Yes General: Well nourished, Well developed, No Acute Distress Head: Normocephalic, Atraumatic Eyes: Perrl, EOMI ENT: Moist mucous membranes, No rhinorrhea Neck: Supple, Nontender Cardiovascular: Regular rate, Regular rhythm, No murmurs Respiratory: No distress, CTA bilaterally, Chest nontender Abdomen: Soft, Nontender, Nondistended, Normal bowel sounds Back: Nontender, Normal Inspection Extremities: Tenderness, Edema, - - There is tenderness along the abductor canal. The right leg is swollen compared to the left. There is venous distention. There is no true discoloration. Skin: Normal color, No rash Neurological: Alert, Oriented x3, Cranial nerves II-XII grossly intact, Normal Strength, Normal Sensation Psychological: Normal affect, Normal Mood Diagnostic/Tx/Re-eval Venous duplex was negative for DVT or Lozoya's cyst. There was no lymphadenopathy. - Medical Decision Making Atraumatic leg pain and asymmetry with leg vein distention concern patient has a DVT. Venous duplex study was ordered. Patient thought she may have strained a muscle. This may be a muscle strain however with leg vein distention, tenderness along the deep venous system and asymmetry and a Wells score of 3 will obtain a venous duplex study. Patient made aware that there is no evidence of clot. No abnormality was noted. Patient was informed that she may have strained a muscle. Recommendation was ice and Tylenol. She had no questions. ED Disposition - Plan for ED Patient: Disposition: Home or Assisted Living Diagnosis: Right thigh pain, Edema of right lower leg Instructions: ED Strain Muscle Ext, ED Peripheral Edema, Unilateral Referrals: Zulma Corral MD [Primary Care Provider] - 3-5 Days if not improving
== END 2020-04-06 12:18 | disposition home or self-care (01) ==
PROVIDERS: Emergency Provider Emergency Medicine; PCP Internal Medicine
DX: M79.651 Pain in right thigh (principal); R60.0 Localized edema; E11.36 Type 2 diabetes mellitus with diabetic cataract; E78.00 Pure hypercholesterolemia, unspecified; I10 Essential (primary) hypertension; I25.10 Atherosclerotic heart disease of native coronary artery without angina pectoris; Z79.4 Long term (current) use of insulin; Z82.49 Family history of ischemic heart disease and other diseases of the circulatory system; Z88.1 Allergy status to other antibiotic agents; Z88.5 Allergy status to narcotic agent; Z80.3 Family history of malignant neoplasm of breast; Z95.5 Presence of coronary angioplasty implant and graft; I65.23 Occlusion and stenosis of bilateral carotid arteries
CPT/HCPCS: 93971; 99282

== ENCOUNTER 2020-04-28 07:39 | Inpatient (IN) | payer MEDICARE, OTHER, SELFPAY ==
[2020-04-28] VITALS (8 sets, daily range): BP systolic 133–184; BP diastolic 57–79; PULSE 54–79; RESP 16–21; TEMP 36.3–37; O2SAT 94–100; BMI 24.0; BMI 22.9; BMI 23.0
--- NOTE | 2020-04-28 07:52 | ED.DCSUM_ITS ---
- ER Visit Summary Date of Service: 04/28/20 Chief Complaint: [Hematuria] History of Present Illness: The patient is a 84 F [presents to the emergency department with complaint of blood in her urine that initially started 4 days ago. Patient states that it was mild 4 nights ago and then it resolved for 2 d ays. This morning she woke up use the restroom around 3 AM and noted blood with clots when she urinated. She denies any significant abdominal pain or back pain out of the ordinary. She does describe some pressure in the suprapubic region. She denies urgency or frequency. She is had no fever. She is not on any blood thinners. She denies any exposures to COVID-19 or URI symptoms. Patient has not had problems with hematuria in the past. She was a smoker but quit many years ago. She does wear a pessary normally and she removed it when she had a hematuria. Patient has history of diabetes, hypertension, high cholesterol, and coronary artery disease.] Physical Examination: [HEENT-PERRLA, EOMI. Cranial nerves II through XII grossly intact. TMs clear. Mucous membranes moist. No adenopathy. Cardiovascular-regular rate and rhythm without murmur or ectopy Lungs-clear to auscultation, chest wall stable without crepitus or subcu emphysema Abdomen-normoactive bowel sounds, soft, nontender, no rebound or rigidity, no peritoneal signs. Extremities-intact ?4, normal range of motion, normal pulses, atraumatic] Test Results: [Orthostatic vital signs were negative. CBC with differential showed a white count 10.8, hemoglobin 13, hematocrit 41, platelet 208. Chemistries unremarkable. BUN was 28 and creatinine 1.19. Urinalysis showed g ross blood negative for leukocyte esterase, greater than 100 RBCs, 0-5 WBCs, and rare bacteria. CT scan of the abdomen pelvis with IV and without IV contrast obtained. This showed filling defect in the right renal pelvis with extension into the posterior midpole calyx as well as the right ureter ureteral pelvic junction. A ureteral carcinoma should be ruled out.] Emergency Department Course and Treatment: [IV line established on arrival] Treatment Plan: [Case was discussed with urologist on-call who asked that we admit patient to hospitalist group and he will see the patient for the hematuria.] I discussed with hospitalist who advised that they would be willing to consult for medical management but felt that the admission was urologic and needed primarily admitted by urology. I discussed once again with Dr. Gomez who will admit the patient and will consult medicine for medical management. Disposition: [Admit] Impression: [Hematuria Right renal mass] This note was generated with [employer] dictation software. It may contain incorrect words, spelling, and punctuation that were not noted in review of the chart prior to signing ED Disposition - Plan for ED Patient: Referrals: Zulma Corral MD [Primary Care Provider] -
[2020-04-28 08:10] LABS: Absolute Lymphocyte Count 1.56 X10^3/uL (0.83-4.51); Basophil# 0.08 X10^3/uL; Basophil% 0.7 % (0-1); Eosinophil# 0.47 X10^3/uL; Eosinophils% 4.3 % (0-5); Hematocrit 41.3 % (37-47); Hemoglobin 13.3 g/dL (12.0-15.0); Lymphocyte # 1.56 X10^3/ul (4.0); Lymphocyte % 14.4 % (19-41); Mean Corp Hgb Conc 32.2 g/dL (32-36); Mean Corpuscular Hgb 29.2 pg (27.0-32.0); Mean Corpuscular Volume 90.8 fL (81-99); Mean Platelet Vol. 11.5 fl (6.2-12.0); Monocyte# 0.65 X10^3/uL; NRBC Flagged by Analyzer 0 % (0-5); Neutrophil # 8.02 X10^3/uL (2.7-7.7); Platelet Count 208 K/mm3 (150-450); RBC Distribution Width CV 13.1 % (11.6-14.6); RBC Distribution Width SD 43.6 fl (35.1-43.9); Red Blood Count 4.55 M/mm3 (4.2-5.4); White Blood Count 10.8 K/mm3 (4.4-11.0)
[2020-04-28 08:25] LABS: Mucous, Urine 0 SEEN /hpf (<or=2+)
[2020-04-28 08:25] LABS: Anion Gap 6 (5-15); BUN 28 mg/dL (7-18); BUN/Creat Ratio 23.5 RATIO (10-20); Calcium,Total 9.6 mg/dL (8.5-10.1); Chloride 104 mmol/L (98-107); Creatinine, Serum 1.19 mg/dL (0.55-1.02); EST Glomerular Filtration Rate 46 mL/min (>60); Est Glom Filt Rate - Afr Amer 55 mL/min (>60); Estimated Creatinine Clearance 28.43 ml/min; Glucose 185 mg/dL (74-106); Potassium 4.3 mmol/L (3.5-5.1); Sodium Level 139 mmol/L (136-145)
--- NOTE | 2020-04-28 08:25 | CT_ITS ---
STUDY: CT ABDOMEN AND PELVIS WITH AND WITHOUT CONTRAST REASON FOR EXAM: Female, 84 years old. Hematuria with clots since the weekend, removed pessary after noticing clots. Prior hernia, diabetes, COPD, hypertension. Hematuria protocol with delays. RADIATION DOSAGE (If Supplied By Facility): CTDIvol = ( 10.55 ) mGy, DLP = ( 1183.24 ) mGycm TECHNIQUE: Transaxial images were obtained from the dome of the diaphragm to the symphysis pubis without oral contrast. IV 75mL Isovue-300 was administered. Sagittal and coronal images were reconstructed. Individualized dose optimization techniques were used for this CT. COMPARISON: None. FINDINGS: There is a 1.2 mm noncalcified nodule in the peripheral lateral aspect of the left lower lobe. There is a 4.9 mm noncalcified nodule in the anterior aspect of the right lower lobe as seen on axial image #1. Coronary artery calcification. Normal liver. Normal gallbladder and extrahepatic biliary system. Normal spleen. There is diffuse atrophy of the pancreas. Normal bilateral adrenal glands. Filling defect in the right renal pelvis and posterior lower pole calyx. Right perinephric stranding. The filling defect extends into the right renal pelvis into the ureteral pelvic junction. A ureteral neoplastic process should be ruled out. There is a 1.3 cm cyst in the midportion of the left kidney. Normal visualized stomach. Normal small intestine. Normal colon. The appendix is visualized and appears normal. There is diffuse atherosclerotic calcification of the abdominal aorta and its major visceral branches, without a demonstrated aneurysm. Normal inferior vena cava. Normal retroperitoneum. There is evidence of bladder wall thickening along the anterior left lateral wall of the urinary bladder. Calcified fibroid uterus. There is evidence of prior mesh repair along the lateral wall of the abdomen on the right side. There are diffuse degenerative changes of the visualized lumbar spine. Grade 1 anterior listhesis of L4 on L5. Retrolisthesis of L1 on L2. Dextroscoliosis. CT/CT Abd/Pelvis W/WO Contrast IMPRESSION: Filling defect in the right renal pelvis with extension into the posterior midpole calyx as well as the right ureter pelvic junction. A ureteral carcinoma should be ruled out. Calcified fibroid uterus. Electronically Signed: Colin Mae, at 9:10 EST , Service support ,
[2020-04-28 08:28] LABS: Color, Urine Red (Yellow); Glucose, Dipstick Normal (Normal); Ketone-Dipstick 5 mg/dl (Negative); Leukocyte Esterase-Dipstick Negative /ul (Negative); Nitrite-Dipstick Negative (Negative); Occult Blood-Urine 250 /ul (Negative); Protein-Dipstick 500 mg/dl (Negative); Urine Bilirubin Dipstick Negative (Negative); Urine Clarity Cloudy (Clear); Urine Urobilinogen Normal (Normal)
[2020-04-28 08:37] LABS: Red Blood Cells-Urine > 100 SEEN /hpf (0-5)
[2020-04-28 08:38] LABS: Squamous Epithelial Cells - UA 0-5 SEEN /hpf (5-10); White Blood Cells 0-5 SEEN /hpf (0-5)
[2020-04-28 08:39] LABS: Bacteria RARE /hpf (None Seen)
--- NOTE | 2020-04-28 09:42 | CON.PCM_ITS ---
Problem List (1) Gross hematuria Status: Acute Reason for Consult Date of Consultation: 04/28/20 Reason for Consultation: gross hematuria History of Present Illness: The patient is a 84 year old female who presented to the hospital with gross [place] bleeding, she's 84-year-old female with other medical problems. Diabetic, hypertension, hyperlipidemia. CT scan reviewed she has the filling defect in the bladder and she may have some filling defect in the right kidney possible transitional cell carcinoma. Recommend the patient be admitted and plan to take her surgery for exploration endoscopically of the bladder and the ureter in the kidney in the right side. Past Medical History Past Medical History (Chronic Problems): Chronic Problems (Last Reviewed 12/18/19 @ 15:59 by Katelyn Gomez) Bilateral carotid artery stenosis (Chronic) Type 2 diabetes mellitus, with long-term current use of insulin (Chronic) Pure hypercholesterolemia (Chronic) Essential (primary) hypertension (Chronic) Atherosclerosis of [place] coronary artery of [place] heart without angina pectoris (Chronic) PTCA/Stent of the prox LAD and 1st Diagonal 02/15/00 @ [facility]; PTCA/DALJIT to mid LAD and successful PCI with PTCA to mid OM 1 in February 2018; Presence of stent in coronary artery (Chronic ~02/27/18) PTCA/Stent of the prox LAD and 1st Diagonal 02/15/00 @ [facility]; PTCA/DALJIT to mid LAD and successful PCI with PTCA to mid OM 1 02/27/18; Medical History: Medical History (Last Reviewed 04/28/20 @ 09:[address] 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 Cerebral artery occlusion I66.9 Sleep apnea G47.30 TIA (transient ischemic attack) G45.9 COPD (chronic obstructive pulmonary disease) J44.9 Spinal stenosis M48.00 Allergies metronidazole [From Flagyl] Allergy (Verified 04/28/20 07:40) Other oxycodone HCl [From OxyContin] Allergy (Verified 04/28/20 07:40) Other Home Medications: Ambulatory Orders Medication Instructions Recorded insulin aspart U-100 100 unit/mL 5 unit SC TID ml 05/30/17 (3 mL) subcutaneous pen multivitamin 1 tab PO QDAY 05/30/17 pantoprazole 40 mg tablet,delayed 40 mg PO QDAY 05/30/17 release losartan 100 mg tablet 50 mg PO BID tab 11/08/17 metoprolol succinate 25 mg 12.5 mg PO BID tab 01/11/18 tablet,extended release 24 hr clopidogrel 75 mg tablet 75 mg PO DAILY #120 tab 07/03/18 insulin detemir U-100 100 unit/mL 15 unit SC BID #10 ml 07/23/18 subcutaneous solution citalopram 10 mg tablet 10 mg PO DAILY tab 03/21/19 isosorbide mononitrate 30 mg 15 mg PO QAM #45 tab 08/06/19 tablet,extended release 24 hr amlodipine 2.5 mg tablet 2.5 mg PO DAILY #30 tab 12/18/19 simvastatin 20 mg tablet 20 mg PO QPM #1 tab 12/18/19 Aspirin [Aspirin, Baby] 81 mg PO DAILY@0800 04/28/20 Surgical History: Surgical History (Last Reviewed 12/18/19 @ 15:59 by Katelyn Gomez) Presence of stent in coronary artery (Chronic) Onset Date: ~02/27/18 Z95.5 PTCA/Stent of the prox LAD and 1st Diagonal 02/15/00 @ [facility]; PTCA/DALJIT to mid LAD and successful PCI with PTCA to mid OM 1 02/27/18; Postsurgical percutaneous transluminal coronary angioplasty (PTCA) status Z98.61 PTCA/Stent of the prox LAD and 1st Diagonal 02/15/00 H/O tubal ligation Z98.51 Hx of cardiac cath Z98.890 S/p bilateral carpal tunnel release Z98.890 Surgical History: angioplasty, cataract, herniorrhaphy, - - Coronary artery stent placement, knee arthroscopy Psychiatric History: No pertinent psych hx [employer] History: No pertinent [employer] history Smoking Status: Former smoker - *Family History Maternal Family History: Family History (Last Reviewed 12/18/19 @ 15:59 by Katelyn Gomez) Father CAD (coronary artery disease) Myocardial infarction Mother Cancer Sister Breast cancer History Items: No pertinent history Paternal Family History: Family History (Last Reviewed 12/18/19 @ 15:59 by Katelyn Gomez) Father CAD (coronary artery disease) Myocardial infarction Mother Cancer Sister Breast cancer History Items: No pertinent history Review of Systems Constitutional: Denies: Chills, Fever, Weight Change HEENT: Denies: Head Aches, Sinus Congestion, Sinus Drainage Cardiovascular: Denies: Chest Pain, Palpitations Respiratory: Denies: Cough, Shortness of breath at rest, Sputum production Gastrointestinal: Denies: Abdominal Pain, Nausea, Vomiting Genitourinary: Denies: Dysuria Musculoskeletal: Denies: Joint Pain, Joint Tenderness Skin: Denies: Rash, Wounds Neurological: Denies: Numbness, Tingling, Focal weakness Psychiatric: Denies: Anxiety, Depression, Homicidal Ideations, Suicidal Ideations Hematologic/ Lymphatic: Denies: Easy Bruising, Easy Bleeding Physical Exam - Physical Exam Vital Signs Temp 98.6 F 04/28/20 07:40 Pulse 65 04/28/20 09:07 Resp 21 H 04/28/20 07:40 BP 152/60 H 04/28/20 09:07 Pulse Ox 97 04/28/20 07:40 Intake & Output 04/26/20 04/27/20 04/28/20 23:59 23:59 23:59 Weight: 52.1 kg General: Alert, Oriented x3 HEENT: Atraumatic Oral: Moist Mucosa Neck: Supple Lungs: Normal air movement Cardiovascular: Regular Rhythm Abdomen: Soft, Obese Rectal: Exam deferred Laboratory Tests Past 24 Hrs 04/28/20 04/28/20 04/28/20 07:59 07:59 08:20 WBC 10.8 RBC 4.55 Hgb 13.3 Hct 41.3 MCV 90.8 MCH 29.2 MCHC 32.2 RDW Std Deviation 43.6 RDW Coeff of Yaneli 13.1 Plt Count 208 MPV 11.5 Immature Gran % (Auto) 0.600 Neut % (Auto) 74.0 H Lymph % (Auto) 14.4 L Drew % (Auto) 6.0 Eos % (Auto) 4.3 Baso % (Auto) 0.7 Absolute Neuts (auto) 8.0 H Absolute Lymphs (auto) 1.56 Nucleated RBC % 0 Sodium 139 Potassium 4.3 Chloride 104 Carbon Dioxide 29.0 Anion Gap 6 BUN 28 H Creatinine 1.19 H Estim Creat Clear Calc 28.43 Est GFR (MDRD) Af Amer 55 L Est GFR (MDRD) Non-Af 46 L BUN/Creatinine Ratio 23.5 H Glucose 185 H Calcium 9.6 Urine Color Red Urine Clarity Cloudy Urine pH 8.0 Ur Specific [place] 1.010 Urine Protein 500 H Urine Glucose (UA) Normal Urine Ketones 5 H Urine Occult Blood 250 H Urine Nitrite Negative Urine Bilirubin Negative Urine Urobilinogen Normal Ur Leukocyte Esterase Negative Urine RBC > 100 SEEN Urine WBC 0-5 SEEN Ur Squamous Epith Cells 0-5 SEEN Urine Bacteria RARE Urine Mucus 0 SEEN Assessment/Plan All Active Problems (Last Reviewed 04/28/20 @ 09:[address] Usman Gomez MD) Gross hematuria (Acute) Epigastric pain (Acute) Chest pain (Acute) Abnormal stress test (Acute) Coronary artery anomaly (Acute) admit to the hospital for gross hematuria possible filling defect within the kidney in the right side possible filling defect in the bladder. And plan for surgery on for the schedule for tomorrow for cystoscopy, bilateral a polygrams possible ureteroscopy and biopsy and stent placement and cauterization of bleeding.
--- NOTE | 2020-04-28 10:14 | NURSING ---
DR LISA SANDS
--- NOTE | 2020-04-28 10:41 | NURSING ---
MED SURG ROSA ISELA HEMATURIA, RENAL MASS
--- NOTE | 2020-04-28 11:04 | EKG12_ITS ---
Test Reason : Blood Pressure : / mmHG Vent. Rate : 057 BPM Atrial Rate : 057 BPM P-R Int : 156 ms QRS Dur : 070 ms QT Int : 412 ms P-R-T Axes : 033 -05 077 degrees QTc Int : 401 ms Sinus bradycardia with sinus arrhythmia Nonspecific T wave abnormality Abnormal ECG When compared with ECG of 19-NOV-2019 14:26, No significant change was found Confirmed by SYLVIA ALLRED, AURORA ([id number]), editorial writer LEYDA CARDENAS ([id number]) on 05/11/2020 9:49:09 AM Referred By: ROSA ISELA Confirmed By:OLIVERIO WARD MD
[2020-04-28] MEDS: 0.9% Normal Saline 1,000 ML 50 ML IV (12:00)
[2020-04-28 12:21] LABS: Bedside Glucose 121 mg/dL (70-110)
[2020-04-28] MEDS: Cefazolin 1 GM/50 ML BAG IV ×2 (12:30→21:09)
[2020-04-28] MEDS: Insulin Lispro 100 UNIT/ML INSULN.PEN SC ×2 (12:55→17:10)
[2020-04-28 16:21] LABS: Bedside Glucose 123 mg/dL (70-110)
[2020-04-28] MEDS: Atorvastatin Calcium 10 MG Tablet PO (20:38)
[2020-04-28] MEDS: Losartan Potassium 50 MG Tablet PO (20:38)
[2020-04-28] MEDS: Metoprolol(XL)Succ 25 MG Tablet 12.5 MG PO (20:40)
[2020-04-28] MEDS: Acetaminophen 325 MG Tablet 650 MG PO (21:08)
[2020-04-28 23:06] LABS: Bedside Glucose 209 mg/dL (70-110)
[2020-04-29] VITALS (13 sets, daily range): BP systolic 131–204; BP diastolic 56–93; PULSE 52–77; RESP 16–18; TEMP 36.2–36.9; O2SAT 94–98; BMI 23.0
[2020-04-29 05:46] LABS: Absolute Lymphocyte Count 1.51 X10^3/uL (0.83-4.51); Basophil# 0.09 X10^3/uL; Basophil% 1.3 % (0-1); Eosinophil# 0.58 X10^3/uL; Eosinophils% 8.4 % (0-5); Hematocrit 36.3 % (37-47); Hemoglobin 12.2 g/dL (12.0-15.0); Lymphocyte # 1.51 X10^3/ul (4.0); Lymphocyte % 21.8 % (19-41); Mean Corp Hgb Conc 33.6 g/dL (32-36); Mean Corpuscular Hgb 30.4 pg (27.0-32.0); Mean Corpuscular Volume 90.5 fL (81-99); Mean Platelet Vol. 11.4 fl (6.2-12.0); Monocyte# 0.74 X10^3/uL; Monocyte% 10.7 % (0-10); NRBC Flagged by Analyzer 0 % (0-5); Neutrophil # 3.97 X10^3/uL (2.7-7.7); Neutrophil % 57.4 % (47-70); Platelet Count 198 K/mm3 (150-450); RBC Distribution Width SD 43.2 fl (35.1-43.9); Red Blood Count 4.01 M/mm3 (4.2-5.4); White Blood Count 6.9 K/mm3 (4.4-11.0)
[2020-04-29 06:24] LABS: Anion Gap 4 (5-15); BUN 24 mg/dL (7-18); BUN/Creat Ratio 25.3 RATIO (10-20); Chloride 110 mmol/L (98-107); Creatinine, Serum 0.95 mg/dL (0.55-1.02); EST Glomerular Filtration Rate 59 mL/min (>60); Est Glom Filt Rate - Afr Amer 72 mL/min (>60); Glucose 149 mg/dL (74-106); Sodium Level 141 mmol/L (136-145)
[2020-04-29 07:16] LABS: Bedside Glucose 151 mg/dL (70-110)
[2020-04-29] MEDS: Cefazolin 1 GM/50 ML BAG IV ×2 (08:52→21:43)
[2020-04-29] MEDS: 0.9% Normal Saline 1,000 ML 50 ML IV (08:52)
[2020-04-29] MEDS: Citalopram 10 MG Tablet PO (08:55)
[2020-04-29] MEDS: Multivitamins,Therapeutic Tablet 1 TABLET PO (08:55)
[2020-04-29] MEDS: Isosorbide Mononitrate 30 MG Tablet 15 MG PO (08:55)
[2020-04-29] MEDS: Losartan Potassium 50 MG Tablet PO ×2 (08:55→21:42)
[2020-04-29] MEDS: Pantoprazole Sodium 40 MG Tablet PO (08:56)
[2020-04-29] MEDS: Metoprolol(XL)Succ 25 MG Tablet 12.5 MG PO ×2 (08:56→21:42)
[2020-04-29] MEDS: amLODIPine 2.5 MG Tablet PO (08:56)
[2020-04-29 11:45] LABS: Bedside Glucose 164 mg/dL (70-110)
--- NOTE | 2020-04-29 13:54 | CASEMGMT ---
RN CM NOTE: To room to complete initial RN CM assessment. Pt out of room at this time--@ OR. Chelsi PONDN RN CM
--- NOTE | 2020-04-29 15:26 | DCINST_ITS ---
Discharge Diet: Light diet - advance as tolerated Discharge Activity: May not drive while taking narcotic pain medications. Call your doctor if your incision/area has: Sudden Increased Bleeding Call your doctor if you observe: Fever of 101 or Higher Suture Line Care: Avoid Pulling/Pushing, Avoid Pinching/Bending Allergies/Adverse Reactions: Allergies metronidazole [From Flagyl] Allergy (Verified 04/28/20 07:40) Other oxycodone HCl [From OxyContin] Allergy (Verified 04/28/20 07:40) Other Medications to take at Discharge multivitamin 1 tab PO QDAY 05/30/17 pantoprazole 40 mg tablet,delayed release 40 mg PO QDAY 05/30/17 losartan 100 mg tablet 50 mg PO BID tab 11/08/17 metoprolol succinate 25 mg tablet,extended release 24 hr 12.5 mg PO BID tab 01/11/18 clopidogrel 75 mg tablet 75 mg PO DAILY #120 tab 07/03/18 amlodipine 2.5 mg tablet 2.5 mg PO DAILY #30 tab 12/18/19 Aspirin [Aspirin, Baby] 81 mg PO DAILY@0800 04/28/20 Citalopram [Celexa] 10 mg PO DAILY 04/28/20 Insulin Aspart [Novolog Flexpen (BKC)] 6 units SC TID 04/28/20 Insulin Detemir [Levemir Flextouch] 10 units SQ BID 04/28/20 Isosorbide Mononitrate [Isosorbide Mononitrate ER] 15 mg PO DAILY 04/28/20 Leflunomide 10 mg PO DAILY 04/28/20 Simvastatin 20 mg PO QHS 04/28/20 Tramadol HCl [Ultram] 50 mg PO BID PRN PRN 04/28/20 Primary Care Physician: Zulma Corral MD [Primary Care Provider] - Test Results: Test results from this visit will be discussed in further detail at your follow- up appointment, if applicable. Please Follow Up With: Usman Gomez MD When: in 2 weeks, please call to make an appointment. Proposed Discharge Date: 04/30/20
[2020-04-29] MEDS: Lactated Ringers 1,000 ML 75 ML IV ×2 (15:30→16:53)
[2020-04-29 15:46] LABS: Bedside Glucose 124 mg/dL (70-110)
--- NOTE | 2020-04-29 16:21 | CYSPIN_PTH ---
PATIENT: ESTUARDO MOODY LOC: [facility] U#:[id number] AGE/SX: 84/F ROOM: [facility] RE04/28/[address]: Dr. Rosales Nuñez MD : [id number] BED: 1 DIS: 04/30/2020 SPEC #: [id number] RECD: 04/30/20 08:00 STATUS: DELTA REKali #: [id number] HANNA: 04/29/20 16:[address]: Rosales Nuñez DEPT: CYTOLOGY RECD BY: Kim Ferrer ENTERED: 04/30/20 08:00 SP TYPE: CYSPIN FL OTHR DR: MD Dr. Zulma Tomas MD Dr. Juan Miguel Proano, MD Tissues: Urine Procedures: Pap Stain (control) Special Stain Group II Cytospin Fluid HEADER OPERATION: Not noted PRE-OP DIAGNOSIS: Gross hematuria TISSUE SUBMITTED: Urine for cytology DIAGNOSIS CYTOLOGY Urine for cytology (cytospin): Positive for malignant cells consistent with urothelial carcinoma. AM:jerald 05/01/20 COMMENT Case has been reviewed in consultation with Dr. Oliveros who concurs with the above diagnosis. IDC:SJ CYTOLOGY STUDY Slides are reviewed. CYTOLOGY GROSS Received is 5 ml of light pinkish, cloudy fluid labeled with the patient's name and and designated per the requisition as urine. Submitted for cytology preparation. / jerald 04/30/20 TC:0 CPT: 12436
--- NOTE | 2020-04-29 16:23 | OP.PCM_ITS ---
Problem List (1) Gross hematuria Status: Acute Report of Operation Date of Procedure: 04/29/20 Pre-Operative Diagnosis: Gross hematuria abnormal imaging of the right kidney on CAT scan Post-Operative Diagnosis: The same Surgery/Procedure Performed:: Cystoscopy, right retrograde pyelogram, dilation of the right ureter, right ureteroscopy diagnostic, no stent. Urine for cytology from right kidney. Left retrograde pyelogram. Description of Surgical Findings:: 84-year-old female she was taken back to the operating room at the smooth induction of general anesthesia she was placed in dorsolithotomy position. The urethra and vaginal area prepped and draped in usual sterile fashion. I went into the bladder with a 21 [place] rigid cystourethroscope. I inspected the bladder completely the bladder was clear of any tumors stones the mucosa was slightly erythematous but no obvious cancer. I then identified the trigone and the left and right ureteral orifice the right ureter orifice was dilated with ureteral access sheath. I then placed a Pollick catheter up the right ureter performed a right retrograde pyelogram. I also obtained urine from the right kidney this was sent off for cytology. I then placed the access sheath up into the right kidney under fluoroscopic guidance and advanced a flexible ureteroscope through the access sheath into the kidney then under fluoroscopy and direct vision I inspected the upper pole midpole lower pole the kidney and inspected the pelvis there was some inflammation of the rios but no tumors no obvious stones no obvious malignancy. Is some inflammation of the rios in the pelvis but again no tumors were visible. I then worked the ureter and inspected the entire ureter and there was no abnormalities occur, along the course of the ureter. After removing the ureteroscope the kidney was draining did not put a stent up on that side. I then used a Glidewire and a Pollack catheter 5 [place] open-ended catheter to cannulate the left ureteral orifice performed a left retrograde pyelogram this was normal. At this point I inspected the kidney and both kidneys and the bladder no source of the hematuria was found beside some inflammation in the right kidney no looking appear to be tumors or like cancer or malignancy.. She does take Plavix with this will be on hold bladder was drained she was taken back to PACU good condition and will keep her overnight and discharge her home tomorrow for follow-up. Type of Anesthesia:: General Drains: none - Admit VTE Documentation VTE Present on Admission: No VTE Mechan Device Prophylaxis: SCD's
[2020-04-29 16:46] LABS: Cytology, Body Fluid / CSF SEE PATHOLOGY REPORT
[2020-04-29 17:26] LABS: Bedside Glucose 130 mg/dL (70-110)
--- NOTE | 2020-04-29 18:42 | PCM.PN.HOSP ---
Patient Problems: Active and Suspected Problems (Last Reviewed 04/28/20 @ 09:[address] Usman oGmez MD) Gross hematuria (Acute) Reason for Visit: Consult for medical management: Subjective: 84-year-old female with past medical history of CAD status post stent, bilateral carotid artery stenosis, COPD not on oxygen, ZULEMA presents with hematuria that started 4 days prior to admission. This resolved for 2 days and restarted on the day of admission. She had noted blood with clots in her urine. She admitted to some suprapubic pressure but no urgency or frequency. CT scan of the abdomen and pelvis obtained in the ED showed filling defect in the right renal pelvis with extension to the posterior midpole calyx as well as a right ureter-pelvic junction. Patient underwent cystoscopy, right retrograde pyelogram, dilation of the right ureter, right ureteroscopy. No stents were placed. Urine for cytology was taken. A left retrograde pyelogram was done. Intra-procedure, there was slight erythema of the mucosa but no obvious cancer. Inflammation was seen in the right ureteric pelvis. Vitals/I&O's: Vital Signs Temp Pulse Resp BP Pulse Ox 97.7 F L 52 L 16 178/70 H 97 04/29/20 18:15 04/29/20 18:15 04/29/20 18:15 04/29/20 18:15 04/29/20 18:15 Oxygen Delivery Method Room Air Weight: 49.895 kg Body Mass Index (BMI) 22.9 Intake and Output for Last 24 Hours 04/27/20 04/28/20 04/29/20 23:59 23:59 23:59 Intake Total 555 / 555 2559.17 / 2559.17 Output Total 340 / 340 Balance 555 / 555 2219.17 / 2219.17 General: Alert, Oriented x3, Cooperative, No apparent distress HEENT: Atraumatic, PERRLA, EOMI, Normocephalic Oral: Moist Mucosa Neck: Supple Lungs: Clear to auscultation, Normal air movement Cardiovascular: Regular rate, Regular Rhythm, Normal S1, Normal S2, No murmurs Abdomen: Bowel Sounds Present, Soft, Non Tender, Non-Distended, No Hepato-splenomegaly Extremities: No edema Skin: No rashes Musculoskeletal: No Tenderness to Palpation of Joints or Extremities Neurological: Cranial nerves II-XII grossly intact, Neuro grossly intact Psych/Mental Status: Normal Affect, Appropriate Microbiology Past 72 Hours 04/28/20 08:20 Urine, Catheterized Urine Culture - Preliminary Gram negative odalis 04/29/20 07:55 Mucosa - Nose SARS-CoV-2 Antigen (Rapid) - Final Laboratory Results 04/28/20 22:29: POC Glucose 209 H 04/29/20 05:20: WBC 6.9, RBC 4.01 L, Hgb 12.2, Hct 36.3 L, MCV 90.5, MCH 30.4, MCHC 33.6, RDW Std Deviation 43.2, RDW Coeff of Yaneli 13.0, Plt Count 198, MPV 11.4, Immature Gran % (Auto) 0.400, Neut % (Auto) 57.4, Lymph % (Auto) 21.8, [place] % (Auto) 10.7 H, Eos % (Auto) 8.4 H, Baso % (Auto) 1.3 H, Absolute Neuts (auto) 4.0, Absolute Lymphs (auto) 1.51, Nucleated RBC % 0 04/29/20 05:20: Sodium 141, Potassium 4.0, Chloride 110 H, Carbon Dioxide 27.0, Anion Gap 4 L, BUN 24 H, Creatinine 0.95, Estim Creat Clear Calc 34.10, Est GFR (MDRD) Af Amer 72, Est GFR (MDRD) Non-Af 59 L, BUN/Creatinine Ratio 25.3 H, Glucose 149 H, Calcium 9.0 04/29/20 07:03: POC Glucose 151 H 04/29/20 11:40: POC Glucose 164 H 04/29/20 15:39: POC Glucose 124 H 04/29/20 16:44: Miscellaneous Cytology Pending 04/29/20 17:17: POC Glucose 130 H Current Medications Acetaminophen (Acetaminophen 325 Mg Tablet) 650 mg PO Q6H PRN PRN PRN Reason: Pain Score 1-10/Temp > 100.7 F Last Admin: 04/28/20 21:08 Dose: 650 mg Documented by: Al Hydroxide/Mg Hydroxide (Mag Hydrox/Al Hydrox/Simeth 30 Ml Udc) 30 ml PO Q6H PRN PRN PRN Reason: Gastric Burning Amlodipine Besylate (Amlodipine 2.5 Mg Tablet) 2.5 mg PO DAILY [facility] Last Admin: 04/29/20 08:56 Dose: 2.5 mg Documented by: Atorvastatin Calcium (Atorvastatin Calcium 10 Mg Tablet) 10 mg PO QPM [facility] Last Admin: 04/28/20 20:38 Dose: 10 mg Documented by: Citalopram Hydrobromide (Citalopram 10 Mg Tablet) 10 mg PO DAILY [facility] Last Admin: 04/29/20 08:55 Dose: 10 mg Documented by: Docusate Sodium (Docusate Sodium 100 Mg Capsule) 100 mg PO BID PRN PRN PRN Reason: Constipation Cefazolin Sodium () 1 gm in 50 mls @ 100 mls/hr IV Q12 [facility] Last Infusion: 04/29/20 09:55 Dose: Infused Documented by: Sodium Chloride () 1,000 mls @ 50 mls/hr IV .Q20H [facility] Last Infusion: 04/29/20 13:45 Dose: 0 mls/hr Documented by: Sodium Chloride () 250 mls @ 15 mls/hr IV .[id number] PRN PRN Reason: Saline Flush Sodium Chloride () 250 mls @ 15 mls/hr IV .[id number] PRN PRN Reason: Additional IVPB Infusion Lactated Ringer's () 1,000 mls @ 75 mls/hr IV .[id number] [facility] Last Admin: 04/29/20 16:53 Dose: 75 mls/hr Documented by: Insulin Glargine (Insulin Glargine 100 Units/Ml Pen) 15 units SC BID [facility] Last Admin: 04/29/20 08:59 Dose: Not Given Documented by: Insulin Human Lispro (Insulin Lispro 100 Unit/Ml Insuln.Pen) 5 unit SC TIDCM [facility] Last Admin: 04/29/20 12:09 Dose: Not Given Documented by: Isosorbide Mononitrate (Isosorbide Mononitrate 30 Mg Tablet) 15 mg PO QAM [facility] Last Admin: 04/29/20 08:55 Dose: 15 mg Documented by: Losartan Potassium (Losartan Potassium 50 Mg Tablet) 50 mg PO BID [facility] Last Admin: 04/29/20 08:55 Dose: 50 mg Documented by: Metoprolol Succinate (Metoprolol(Xl)Succ 25 Mg Tablet) 12.5 mg PO BID [facility] Last Admin: 04/29/20 08:56 Dose: 12.5 mg Documented by: Multivitamins (Multivitamins,Therapeutic Tablet) [facility] Last Admin: 04/29/20 08:55 Dose: 1 tablet Documented by: Ondansetron HCl (Ondansetron 4 Mg/2 Ml Vial) 4 mg IV Q8H PRN PRN PRN Reason: NAUSEA/VOMITING Pantoprazole Sodium (Pantoprazole Sodium 40 Mg Tablet) 40 mg PO DAILY [facility] Last Admin: 04/29/20 08:56 Dose: 40 mg Documented by: Sodium Chloride (0.9% Saline Lock 10 Ml Syringe) 10 - 40 ml IV UD PRN PRN Reason: SALINE FLUSH STROKE Vital Signs/Narrative: Vital Signs Temp Pulse Resp BP Pulse Ox 04/29/20 18:15 97.7 F L 52 L 16 178/70 H 97 04/29/20 17:45 54 L 16 193/81 H 97 04/29/20 17:30 55 L 16 98 04/29/20 17:15 58 L 16 195/85 H 97 04/29/20 17:00 66 16 204/78 H 98 04/29/20 16:45 69 16 155/84 H 97 04/29/20 16:34 98.4 F 70 16 150/93 H 97 Medical Necessity - Tobacco Use Smoking Status: Former smoker Assessment/Plan All Active Problems (Last Reviewed 04/28/20 @ 09:[address] Usman Gomez MD) Gross hematuria (Acute) Epigastric pain (Acute) Chest pain (Acute) Abnormal stress test (Acute) Coronary artery anomaly (Acute) 1. Acute hematuria, status post cystoscopy, right retrograde pyelogram, right ureteroscopy, left retrograde pyelogram No more hematuria seen. Patient remained stable. Home Plavix on hold Further management by urology 2. Hypertension, controlled, on continue with home regimen -amlodipine, metoprolol and losartan 3. CAD status post stent (1999), continue on metoprolol 4. Type II DM, on insulin, blood sugars are stable, continue with home insulin regimen as well as insulin sliding scale blood glucose checks 5. Debility related to the above, PT and OT to evaluate and treat 6. Depression, continue on Celexa 7. DVT prophylaxis?SCDs, early ambulation on account of hematuria Inpatient E&M: [id number] [facility] Hosp L2
[2020-04-29] MEDS: 0.9% Saline Lock 10 ML Syringe IV (20:27)
[2020-04-29] MEDS: Ondansetron 4 MG/2 ML Vial IV (20:27)
[2020-04-29] MEDS: Acetaminophen 325 MG Tablet 650 MG PO (20:40)
[2020-04-29] MEDS: Atorvastatin Calcium 10 MG Tablet PO (21:42)
[2020-04-29 23:21] LABS: Bedside Glucose 332 mg/dL (70-110)
[2020-04-30 00:40] VITALS: BP 137/71; PULSE 70; RESP 18; TEMP 36.6; O2SAT 97
--- NOTE | 2020-04-30 01:04 | NURSING ---
Date: 04/28/2020 Time: 1899
[2020-04-30 05:05] VITALS: BP 132/52; PULSE 53; RESP 16; TEMP 36.6; O2SAT 96
--- NOTE | 2020-04-30 07:19 | PCM.DC.SUM ---
Discharge Date and Diagnosis - Problem List Patient Problems: Active and Suspected Problems (Last Reviewed 04/28/20 @ 09:[address] Usman Gomez MD) Gross hematuria (Acute) Date of Admission: 02/26/18 Date of Discharge: 04/30/20 - Primary Discharge Diagnosis Acute Problems: Active Problems (Last Reviewed 04/28/20 @ 09:[address] Usman Gomez MD) Gross hematuria (Acute) - Secondary Discharge Diagnosis Chronic Problems: Chronic Problems (Last Reviewed 12/18/19 @ 15:59 by Katelyn Gomez) Bilateral carotid artery stenosis (Chronic) Type 2 diabetes mellitus, with long-term current use of insulin (Chronic) Pure hypercholesterolemia (Chronic) Essential (primary) hypertension (Chronic) Atherosclerosis of [place] coronary artery of [place] heart without angina pectoris (Chronic) PTCA/Stent of the prox LAD and 1st Diagonal 02/15/00 @ [facility]; PTCA/DALJIT to mid LAD and successful PCI with PTCA to mid OM 1 in February 2018; Presence of stent in coronary artery (Chronic ~02/27/18) PTCA/Stent of the prox LAD and 1st Diagonal 02/15/00 @ [facility]; PTCA/DALJIT to mid LAD and successful PCI with PTCA to mid OM 1 02/27/18; Hospital Course and Treatment Operations: None, - - Cystoscopy retrograde and ureteroscopy. Summary of Care Provided: The patient is a 84 year old female who is been on Plavix presented to the hospital with gross hematuria she was taken back to the operating room the bladder was inspected no findings left the right kidney was also inspected and no findings. The right kidney was explored with ureteroscopy to start down some inflammation. And she will be discharged home today with antibiotics she will need to hold her Plavix. Patient Problems: Active and Suspected Problems (Last Reviewed 04/28/20 @ 09:[address] Usman Gomez MD) Gross hematuria (Acute) - Physical Exam Vitals/I&O's: Vital Signs Temp Pulse Resp BP Pulse Ox 97.9 F 53 L 16 132/52 H 96 04/30/20 05:05 04/30/20 05:05 04/30/20 05:05 04/30/20 05:05 04/30/20 05:05 Oxygen Delivery Method Room Air Weight: 49.895 kg Body Mass Index (BMI) 22.9 Intake and Output for Last 24 Hours 04/28/20 04/29/20 04/30/20 23:59 23:59 23:59 Intake Total 555 / 555 2923.34 / 2923.34 Output Total 340 / 340 Balance 555 / 555 2583.34 / 2583.34 General: Alert, Oriented x3, Cooperative HEENT: Atraumatic, PERRLA, EOMI, Normocephalic Neck: Supple, No JVD, Negative Carotid Bruits Lungs: Clear to auscultation, Normal air movement Cardiovascular: Regular rate, No murmurs Abdomen: Bowel Sounds Present, Soft, Non Tender Extremities: No edema, Capillary Refill Less than 3 Seconds Skin: No rashes, No breakdown Musculoskeletal: No Tenderness to Palpation of Joints or Extremities Neurological: Cranial nerves II-XII grossly intact Psych/Mental Status: Normal Affect, Appropriate Microbiology Past 72 Hours 04/28/20 08:20 Urine, Catheterized Urine Culture - Preliminary Gram negative odalis 04/29/20 07:55 Mucosa - Nose SARS-CoV-2 Antigen (Rapid) - Final Laboratory Results 04/29/20 11:40: POC Glucose 164 H 04/29/20 15:39: POC Glucose 124 H 04/29/20 16:44: Miscellaneous Cytology Pending 04/29/20 17:17: POC Glucose 130 H 04/29/20 21:41: POC Glucose 332 H Current Medications Acetaminophen (Acetaminophen 325 Mg Tablet) 650 mg PO Q6H PRN PRN PRN Reason: Pain Score 1-10/Temp > 100.7 F Last Admin: 04/29/20 20:40 Dose: 650 mg Documented by: Al Hydroxide/Mg Hydroxide (Mag Hydrox/Al Hydrox/Simeth 30 Ml Udc) 30 ml PO Q6H PRN PRN PRN Reason: Gastric Burning Amlodipine Besylate (Amlodipine 2.5 Mg Tablet) 2.5 mg PO DAILY [facility] Last Admin: 04/29/20 08:56 Dose: 2.5 mg Documented by: Atorvastatin Calcium (Atorvastatin Calcium 10 Mg Tablet) 10 mg PO QPM [facility] Last Admin: 04/29/20 21:42 Dose: 10 mg Documented by: Citalopram Hydrobromide (Citalopram 10 Mg Tablet) 10 mg PO DAILY [facility] Last Admin: 04/29/20 08:55 Dose: 10 mg Documented by: Docusate Sodium (Docusate Sodium 100 Mg Capsule) 100 mg PO BID PRN PRN PRN Reason: Constipation Cefazolin Sodium () 1 gm in 50 mls @ 100 mls/hr IV Q12 [facility] Last Infusion: 04/29/20 22:30 Dose: Infused Documented by: Sodium Chloride () 1,000 mls @ 50 mls/hr IV .Q20H [facility] Last Infusion: 04/29/20 22:30 Dose: 50 mls/hr Documented by: Sodium Chloride () 250 mls @ 15 mls/hr IV .[id number] PRN PRN Reason: Saline Flush Sodium Chloride () 250 mls @ 15 mls/hr IV .[id number] PRN PRN Reason: Additional IVPB Infusion Lactated Ringer's () 1,000 mls @ 75 mls/hr IV .[id number] [facility] Last Infusion: 04/29/20 18:47 Dose: Infused Documented by: Insulin Glargine (Insulin Glargine 100 Units/Ml Pen) 15 units SC BID [facility] Last Admin: 04/29/20 21:42 Dose: 10 unit Documented by: Insulin Human Lispro (Insulin Lispro 100 Unit/Ml Insuln.Pen) 5 unit SC TIDCM [facility] Last Admin: 04/29/20 18:47 Dose: Not Given Documented by: Isosorbide Mononitrate (Isosorbide Mononitrate 30 Mg Tablet) 15 mg PO QAM [facility] Last Admin: 04/29/20 08:55 Dose: 15 mg Documented by: Losartan Potassium (Losartan Potassium 50 Mg Tablet) 50 mg PO BID [facility] Last Admin: 04/29/20 21:42 Dose: 50 mg Documented by: Metoprolol Succinate (Metoprolol(Xl)Succ 25 Mg Tablet) 12.5 mg PO BID [facility] Last Admin: 04/29/20 21:42 Dose: 12.5 mg Documented by: Multivitamins ([facility],Therapeutic Tablet) [facility] Last Admin: 04/29/20 08:55 Dose: 1 tablet Documented by: Ondansetron HCl (Ondansetron 4 Mg/2 Ml Vial) 4 mg IV Q8H PRN PRN PRN Reason: NAUSEA/VOMITING Last Admin: 04/29/20 20:27 Dose: 4 mg Documented by: Pantoprazole Sodium (Pantoprazole Sodium 40 Mg Tablet) 40 mg PO DAILY [facility] Last Admin: 04/29/20 08:56 Dose: 40 mg Documented by: Sodium Chloride (0.9% Saline Lock 10 Ml Syringe) 10 - 40 ml IV UD PRN PRN Reason: SALINE FLUSH Last Admin: 04/29/20 20:27 Dose: 10 ml Documented by: Discharge Diet: Light diet - advance as tolerated Discharge Activity: May not drive while taking narcotic pain medications. Call your doctor if your incision/area has: Sudden Increased Bleeding Call your doctor if you observe: Fever of 101 or Higher Suture Line Care: Avoid Pulling/Pushing, Avoid Pinching/Bending Home Medications: Medications to take at Discharge multivitamin 1 tab PO QDAY 05/30/17 pantoprazole 40 mg tablet,delayed release 40 mg PO QDAY 05/30/17 losartan 100 mg tablet 50 mg PO BID tab 11/08/17 metoprolol succinate 25 mg tablet,extended release 24 hr 12.5 mg PO BID tab 01/11/18 amlodipine 2.5 mg tablet 2.5 mg PO DAILY #30 tab 12/18/19 Citalopram [Celexa] 10 mg PO DAILY 04/28/20 Insulin Aspart [Novolog Flexpen] 6 units SC TID 04/28/20 Insulin Detemir [Levemir Flextouch] 10 units SQ BID 04/28/20 Isosorbide Mononitrate [Isosorbide Mononitrate ER] 15 mg PO DAILY 04/28/20 Leflunomide 10 mg PO DAILY 04/28/20 Simvastatin 20 mg PO QHS 04/28/20 Tramadol HCl [Ultram] 50 mg PO BID PRN PRN 04/28/20 Ciprofloxacin [Cipro] 500 mg PO BID #14 tab 04/29/20 Following Prescriptions Were Given to Patient: Ciprofloxacin [Cipro] 500 mg PO BID #14 tab Transmission Status: Received by [id number] Primary Care Physician: Zulma Corral MD [Primary Care Provider] - Please Follow Up With: Usman Gomez MD When: in 2 weeks, please call to make an appointment. Medical Necessity - Tobacco Use Smoking Status: Former smoker Meaningful Use Info Meaningful Use Diagnoses (Choose all that apply): None applicable
[2020-04-30] MEDS: Cefazolin 1 GM/50 ML BAG IV (07:57)
[2020-04-30] MEDS: Citalopram 10 MG Tablet PO (07:58)
[2020-04-30] MEDS: amLODIPine 2.5 MG Tablet PO (07:58)
[2020-04-30] MEDS: Isosorbide Mononitrate 30 MG Tablet 15 MG PO (07:58)
[2020-04-30] MEDS: Pantoprazole Sodium 40 MG Tablet PO (07:59)
[2020-04-30] MEDS: Losartan Potassium 50 MG Tablet PO (07:59)
[2020-04-30] MEDS: Multivitamins,Therapeutic Tablet 1 TABLET PO (07:59)
[2020-04-30 08:11] LABS: Bedside Glucose 85 mg/dL (70-110)
--- NOTE | 2020-04-30 08:42 | PN_ITS ---
<Zeb Camejo - Last Filed: 04/30/20 08:42> Patient Problems: Active and Suspected Problems (Last Reviewed 04/28/20 @ 09:[address] Usman Gomez MD) Gross hematuria (Acute) Reason for Visit: hematuria Subjective: Pt had some hematuria, dark red, this AM. Later, she urinated again and it was clear, no blood at all. She has no dizziness, LH, SOB. She is planning to go home later today. Vitals/I&O's: Vital Signs Temp Pulse Resp BP Pulse Ox 97.9 F 53 L 16 132/52 H 96 04/30/20 05:05 04/30/20 05:05 04/30/20 05:05 04/30/20 05:05 04/30/20 05:05 Oxygen Delivery Method Room Air Weight: 110 lb Body Mass Index (BMI) 22.9 Intake and Output for Last 24 Hours 04/28/20 04/29/20 04/30/20 23:59 23:59 23:59 Intake Total 555 / 555 2923.34 / 2923.34 Output Total 340 / 340 Balance 555 / 555 2583.34 / 2583.34 General: Alert, Oriented x3, Cooperative HEENT: Atraumatic, PERRLA, EOMI, Normocephalic Neck: Supple, No JVD, Negative Carotid Bruits Lungs: Clear to auscultation, Normal air movement Cardiovascular: Regular rate, No murmurs Abdomen: Bowel Sounds Present, Soft, Non Tender Extremities: No edema, Capillary Refill Less than 3 Seconds Skin: No rashes, No breakdown Musculoskeletal: No Tenderness to Palpation of Joints or Extremities Neurological: Cranial nerves II-XII grossly intact Psych/Mental Status: Normal Affect, Appropriate, Alert and oriented to time, p lace, person, mood and affect Microbiology Past 72 Hours 04/28/20 08:20 Urine, Catheterized Urine Culture - Final Escherichia coli 04/29/20 07:55 Mucosa - Nose SARS-CoV-2 Antigen (Rapid) - Final Laboratory Results 04/29/20 11:40: POC Glucose 164 H 04/29/20 15:39: POC Glucose 124 H 04/29/20 16:44: Miscellaneous Cytology Pending 04/29/20 17:17: POC Glucose 130 H 04/29/20 21:41: POC Glucose 332 H 04/30/20 07:56: POC Glucose 85 Current Medications Acetaminophen (Acetaminophen 325 Mg Tablet) 650 mg PO Q6H PRN PRN PRN Reason: Pain Score 1-10/Temp > 100.7 F Last Admin: 04/29/20 20:40 Dose: 650 mg Documented by: Al Hydroxide/Mg Hydroxide (Mag Hydrox/Al Hydrox/Simeth 30 Ml Udc) 30 ml PO Q6H PRN PRN PRN Reason: Gastric Burning Amlodipine Besylate (Amlodipine 2.5 Mg Tablet) 2.5 mg PO DAILY [facility] Last Admin: 04/30/20 07:58 Dose: 2.5 mg Documented by: Atorvastatin Calcium (Atorvastatin Calcium 10 Mg Tablet) 10 mg PO QPM [facility] Last Admin: 04/29/20 21:42 Dose: 10 mg Documented by: Citalopram Hydrobromide (Citalopram 10 Mg Tablet) 10 mg PO DAILY [facility] Last Admin: 04/30/20 07:58 Dose: 10 mg Documented by: Docusate Sodium (Docusate Sodium 100 Mg Capsule) 100 mg PO BID PRN PRN PRN Reason: Constipation Cefazolin Sodium () 1 gm in 50 mls @ 100 mls/hr IV Q12 [facility] Last Admin: 04/30/20 07:57 Dose: 100 mls/hr Documented by: Sodium Chloride () 1,000 mls @ 50 mls/hr IV .Q20H [facility] Last Infusion: 04/29/20 22:30 Dose: 50 mls/hr Documented by: Sodium Chloride () 250 mls @ 15 mls/hr IV .[id number] PRN PRN Reason: Saline Flush Sodium Chloride () 250 mls @ 15 mls/hr IV .[id number] PRN PRN Reason: Additional IVPB Infusion Lactated Ringer's () 1,000 mls @ 75 mls/hr IV .[id number] [facility] Last Infusion: 04/29/20 18:47 Dose: Infused Documented by: Insulin Glargine (Insulin Glargine 100 Units/Ml Pen) 15 units SC BID [facility] Last Admin: 04/29/20 21:42 Dose: 10 unit Documented by: Insulin Human Lispro (Insulin Lispro 100 Unit/Ml Insuln.Pen) 5 unit SC TIDCM [facility] Last Admin: 04/29/20 18:47 Dose: Not Given Documented by: Isosorbide Mononitrate (Isosorbide Mononitrate 30 Mg Tablet) 15 mg PO QAM [facility] Last Admin: 04/30/20 07:58 Dose: 15 mg Documented by: Losartan Potassium (Losartan Potassium 50 Mg Tablet) 50 mg PO BID [facility] Last Admin: 04/30/20 07:59 Dose: 50 mg Documented by: Metoprolol Succinate (Metoprolol(Xl)Succ 25 Mg Tablet) 12.5 mg PO BID [facility] Last Admin: 04/30/20 07:59 Dose: Not Given Documented by: [facility]ivitamins ([facility]it[facility],Therapeutic Tablet) [facility] Last Admin: 04/30/20 07:59 Dose: 1 tablet Documented by: Ondansetron HCl (Ondansetron 4 Mg/2 Ml Vial) 4 mg IV Q8H PRN PRN PRN Reason: NAUSEA/VOMITING Last Admin: 04/29/20 20:27 Dose: 4 mg Documented by: Pantoprazole Sodium (Pantoprazole Sodium 40 Mg Tablet) 40 mg PO DAILY [facility] Last Admin: 04/30/20 07:59 Dose: 40 mg Documented by: Sodium Chloride (0.9% Saline Lock 10 Ml Syringe) 10 - 40 ml IV UD PRN PRN Reason: SALINE FLUSH Last Admin: 04/29/20 20:27 Dose: 10 ml Documented by: STROKE Vital Signs/Narrative: Vital Signs Temp Pulse Resp BP Pulse Ox 04/30/20 05:05 97.9 F 53 L 16 132/52 H 96 Medical Necessity - Tobacco Use Smoking Status: Former smoker Assessment/Plan All Active Problems (Last Reviewed 04/28/20 @ 09:[address] Usman Gomez MD) Gross hematuria (Acute) Epigastric pain (Acute) Chest pain (Acute) Abnormal stress test (Acute) Coronary artery anomaly (Acute) 1. Hematuria - possibly due to uti - E coli, 50-80 k on cx - pansusceptible. no fever/leukocytosis. abx per urology. no anemic symptoms. Hgb has been normal. F/u urology as o/p. 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 2. T2DM - blood sugar controlled - continue prior home insulin. 3. HTN - significantly improved today. resume home meds. 4. CAD - hold plavix until ok per urology 5. COPD - no exacerbation. lungs clear Thank you for the opportunity to participate in the care of this patient This patient was seen by Zeb Camejo PA-C under the supervision of Doctor Savannah. <Rosales Nuñez F - Last Filed: 04/30/20 10:03> Vitals/I&O's: Vital Signs Temp Pulse Resp BP Pulse Ox 97.9 F 53 L 16 132/52 H 96 04/30/20 05:05 04/30/20 05:05 04/30/20 05:05 04/30/20 05:05 04/30/20 05:05 Oxygen Delivery Method Room Air Weight: 110 lb Body Mass Index (BMI) 22.9 Intake and Output for Last 24 Hours 04/28/20 04/29/20 04/30/20 23:59 23:59 23:59 Intake Total 555 / 555 2923.34 / 2923.34 599.17 / 599.17 Output Total 340 / 340 Balance 555 / 555 2583.34 / 2583.34 599.17 / 599.17 Microbiology Past 72 Hours 04/28/20 08:20 Urine, Catheterized Urine Culture - Final Escherichia coli 04/29/20 07:55 Mucosa - Nose SARS-CoV-2 Antigen (Rapid) - Final Laboratory Results 04/29/20 11:40: POC Glucose 164 H 04/29/20 15:39: POC Glucose 124 H 04/29/20 16:44: Miscellaneous Cytology Pending 04/29/20 17:17: POC Glucose 130 H 04/29/20 21:41: POC Glucose 332 H 04/30/20 07:56: POC Glucose 85 Current Medications Acetaminophen (Acetaminophen 325 Mg Tablet) 650 mg PO Q6H PRN PRN PRN Reason: Pain Score 1-10/Temp > 100.7 F Last Admin: 04/29/20 20:40 Dose: 650 mg Documented by: Al Hydroxide/Mg Hydroxide (Mag Hydrox/Al Hydrox/Simeth 30 Ml Udc) 30 ml PO Q6H PRN PRN PRN Reason: Gastric Burning Amlodipine Besylate (Amlodipine 2.5 Mg Tablet) 2.5 mg PO DAILY [facility] Last Admin: 04/30/20 07:58 Dose: 2.5 mg Documented by: Atorvastatin Calcium (Atorvastatin Calcium 10 Mg Tablet) 10 mg PO QPM [facility] Last Admin: 04/29/20 21:42 Dose: 10 mg Documented by: Citalopram Hydrobromide (Citalopram 10 Mg Tablet) 10 mg PO DAILY [facility] Last Admin: 04/30/20 07:58 Dose: 10 mg Documented by: Docusate Sodium (Docusate Sodium 100 Mg Capsule) 100 mg PO BID PRN PRN PRN Reason: Constipation Cefazolin Sodium () 1 gm in 50 mls @ 100 mls/hr IV Q12 [facility] Last Infusion: 04/30/20 09:29 Dose: Infused Documented by: Sodium Chloride () 1,000 mls @ 50 mls/hr IV .Q20H [facility] Last Admin: 04/30/20 09:31 Dose: Not Given Documented by: Sodium Chloride () 250 mls @ 15 mls/hr IV .[id number] PRN PRN Reason: Saline Flush Sodium Chloride () 250 mls @ 15 mls/hr IV .[id number] PRN PRN Reason: Additional IVPB Infusion Lactated Ringer's () 1,000 mls @ 75 mls/hr IV .[id number] [facility] Last Infusion: 04/29/20 18:47 Dose: Infused Documented by: Insulin Glargine (Insulin Glargine 100 Units/Ml Pen) 15 units SC BID [facility] Last Admin: 04/30/20 09:30 Dose: 10 unit Documented by: Insulin Human Lispro (Insulin Lispro 100 Unit/Ml Insuln.Pen) 5 unit SC TIDCM [facility] Last Admin: 04/30/20 09:31 Dose: Not Given Documented by: Isosorbide Mononitrate (Isosorbide Mononitrate 30 Mg Tablet) 15 mg PO QAM [facility] Last Admin: 04/30/20 07:58 Dose: 15 mg Documented by: Losartan Potassium (Losartan Potassium 50 Mg Tablet) 50 mg PO BID [facility] Last Admin: 04/30/20 07:59 Dose: 50 mg Documented by: Metoprolol Succinate (Metoprolol(Xl)Succ 25 Mg Tablet) 12.5 mg PO BID [facility] Last Admin: 04/30/20 07:59 Dose: Not Given Documented by: Multivitamins (Multivitamins,Therapeutic Tablet) 1 tablet PO DAILYCM [facility] Last Admin: 04/30/20 07:59 Dose: 1 tablet Documented by: Ondansetron HCl (Ondansetron 4 Mg/2 Ml Vial) 4 mg IV Q8H PRN PRN PRN Reason: NAUSEA/VOMITING Last Admin: 04/29/20 20:27 Dose: 4 mg Documented by: Pantoprazole Sodium (Pantoprazole Sodium 40 Mg Tablet) 40 mg PO DAILY [facility] Last Admin: 04/30/20 07:59 Dose: 40 mg Documented by: Sodium Chloride (0.9% Saline Lock 10 Ml Syringe) 10 - 40 ml IV UD PRN PRN Reason: SALINE FLUSH Last Admin: 04/29/20: Dose: 10 ml Documented by: Addendum: Dr. Nuñez I personally examined the patient and reviewed the chart. I agree with the above. 84-year-old female with a history of CAD and stents as well as COPD presented to the hospital with hematuria. This started about 4 days prior to her admission. She was admitted under urology secondary to her gross hematuria and medicine was consulted for medical management given her age and her comorbidities. She underwent a cystoscopy with a right retrograde pyelogram and dilation of the right ureter and right ureteroscopy. She did not need to have any stents placed and a urine sample was taken for cytology. From a medical perspective she is doing well today and she did have some hematuria this morning after the procedure yesterday however this resolved prior to discharge. From medicine standpoint she is stable for discharge and discharge was discussed with her and she expressed understanding of the risk and benefits of going home and would like to go home today. Inpatient E&M: [id number] [facility] L2
--- NOTE | 2020-04-30 09:40 | CASEMGMT ---
EVERTON FRANCOIS assessment: Face to Face with patient for initial transition planning/care coordination assessment. EVERTON FRANCOIS introduced self and role at [facility], pt voices understanding and consents to assessment at this time. Pt is sitting up in bed in no distress at this time. Pt is A/Ox4 at this time and answers all questions appropriately at this time. Care providers, pharmacy, and demographics verified/updated at this time. 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 Admitting dx: Gross hematuria PCP: Shayna Specialists: Patricia, uro; Soren, cardio; Estefania, podiatry [facility]erred [facility]acy: [facility] Insurance: [facility] A/B, [employer] Prescription Benefit: Yes Living Will/HPOA: Pt states has LW/HPOA and is aware that they are on file at [facility] at this time. Pt's daughter, Gretchen Aparicio, is HPOA. LNOK: Gretchen Aparicio, daughter/HPOA; Yazmin Meeks, daughter; Blake Rodriguez, son Living Arrangements: Pt states lives alone in 1 story home and states no concerns at home at this time. Pt states is independent with ADL's. Transportation: Pt states drives self and states no transportation concerns at this time. DME/HHC: Pt states has the following DME: cane, grab bar in shower, and medical alert thru [facility]. Pt states no need for any further DME at this time. Pt states no hx of HHC or SNF in the past. Pt states no concerns with going home at this time. Pt states is retired. Pt states does not smoke cigarettes or drink ETOH. Pt states no further concerns/needs at this time. CM to follow for any further discharge planning/needs. Advised pt to ask for CM if any further questions/concerns/needs arise, voices understanding. Pt Goal: Home Plan[place] EVERTON FRANCOIS
[2020-04-30 10:19] VITALS: BP 102/72; PULSE 75; RESP 16; TEMP 36.8; O2SAT 96
--- NOTE | 2020-05-01 16:28 | CASEMGMT ---
EVERTON FRANCOIS Discharge F/U Phone Call LACE: 12 Strata: 3 Discharge date: 04/30/2020 Call date: 05/01/2020 Call time: [id number] Admission dx: Gross hematuria Pt states has been 'doing fine' since discharge. Pt states just got back from [facility] PCP visit. Pt states Dr. Corral and states she is to hold plavix and baby asa until 05/05/2020. Pt states no questions regarding d/c instructions/medications at this time. Pt states has f/u with Dr. Gomez on 05/07/2020 at 1430 and plans to keep. Pt states only concern was with her wait in surgery prior to procedure. Pt states 'the girls who took care of me on the 1st floor were the ultimate and just so wonderful, every one of them.' Pt states she is feeling 'back to normal' and states no further concerns/needs at this time. Pt thanks this RN PRISCILA for call. Christine TOSCANO CM
== END 2020-04-30 10:46 | disposition home or self-care (01) | DRG 696 ==
LOC: ED 10:21 → PCU 11:17
PROVIDERS: Admitting Provider Urology; Emergency Provider Emergency Medicine; PCP Internal Medicine; Visit Provider Family Medicine
PROC: BT141ZZ Fluoroscopy of Kidneys, Ureters and Bladder using Low Osmolar Contrast (ICD-10-PCS; CPT 52353; principal; 2020-04-29 14:40)
DX: R31.0 Gross hematuria (principal); Q24.5 Malformation of coronary vessels; I65.23 Occlusion and stenosis of bilateral carotid arteries; I25.10 Atherosclerotic heart disease of native coronary artery without angina pectoris; I10 Essential (primary) hypertension; E11.9 Type 2 diabetes mellitus without complications; E78.00 Pure hypercholesterolemia, unspecified; E78.5 Hyperlipidemia, unspecified; G47.33 Obstructive sleep apnea (adult) (pediatric); J44.9 Chronic obstructive pulmonary disease, unspecified; F32.9 Major depressive disorder, single episode, unspecified; Z79.4 Long term (current) use of insulin; Z95.5 Presence of coronary angioplasty implant and graft; Z98.51 Tubal ligation status; Z86.73 Personal history of transient ischemic attack (TIA), and cerebral infarction without residual deficits; Z79.02 Long term (current) use of antithrombotics/antiplatelets; Z87.891 Personal history of nicotine dependence
CPT/HCPCS: 74178; 76000; 80048; 81001; 82962; 85025; 87077; 87086; 87088; 87186; 87426; 88108; 88313; 93005; 99285; J7030; J7120; P9612; Q9967; A4216; C1769; C1894; J2405

== ENCOUNTER 2020-06-03 08:25 | Day surgery (SDC) | payer MEDICARE, OTHER, SELFPAY ==
[2020-04-28 11:53] VITALS: BMI 22.9
[2020-06-03 09:12] VITALS: BP 154/75; PULSE 70; RESP 16; TEMP 36.1; O2SAT 95; BMI 23.3
--- NOTE | 2020-06-03 09:24 | HP.PCM_ITS ---
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 Past Medical History Past Medical History (Chronic Problems): Chronic Problems (Last Reviewed 12/18/19 @ 15:59 by Katelyn Gomez) Bilateral carotid artery stenosis (Chronic) Type 2 diabetes mellitus, with long-term current use of insulin (Chronic) Pure hypercholesterolemia (Chronic) Essential (primary) hypertension (Chronic) Atherosclerosis of [place] coronary artery of [place] heart without angina pectoris (Chronic) PTCA/Stent of the prox LAD and 1st Diagonal 02/15/00 @ [facility]; PTCA/DALJIT to mid LAD and successful PCI with PTCA to mid OM 1 in February 2018; Presence of stent in coronary artery (Chronic ~02/27/18) PTCA/Stent of the prox LAD and 1st Diagonal 02/15/00 @ [facility]; PTCA/DALJIT to mid LAD and successful PCI with PTCA to mid OM 1 02/27/18; Medical History: Medical History (Last Reviewed 06/03/20 @ 09:[address] 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 Cerebral artery occlusion I66.9 Sleep apnea G47.30 TIA (transient ischemic attack) G45.9 COPD (chronic obstructive pulmonary disease) J44.9 Spinal stenosis M48.00 Allergies metronidazole [From Flagyl] Allergy (Verified 05/28/20 11:21) Other oxycodone HCl [From OxyContin] Allergy (Verified 05/28/20 11:21) Other Home Medications: Ambulatory Orders Medication Instructions Recorded multivitamin 1 tab PO QDAY 05/30/17 pantoprazole 40 mg tablet,delayed 40 mg PO QDAY 05/30/17 release losartan 100 mg tablet 50 mg PO BID tab 11/08/17 metoprolol succinate 25 mg 12.5 mg PO BID tab 01/11/18 tablet,extended release 24 hr amlodipine 2.5 mg tablet 2.5 mg PO DAILY #30 tab 12/18/19 Citalopram [Celexa] 10 mg PO DAILY 04/28/20 Insulin Aspart [Novolog Flexpen] 5 units SC TID 04/28/20 Insulin Detemir [Levemir Flextouch] 10 units SQ BID 04/28/20 Isosorbide Mononitrate [Isosorbide 15 mg PO DAILY 04/28/20 Mononitrate ER] Leflunomide 10 mg PO DAILY 04/28/20 Simvastatin 20 mg PO QHS 04/28/20 Tramadol HCl [Ultram] 50 mg PO BID PRN PRN 04/28/20 Albuterol Inhaler [Ventolin Hfa 1 - 2 puff INHALATION Q6H PRN PRN 05/28/20 (SP)] Clopidogrel Bisulfate [Clopidogrel] 75 mg PO DAILY 05/28/20 Surgical History: Surgical History (Last Reviewed 12/18/19 @ 15:59 by Katelyn Gomez) Presence of stent in coronary artery (Chronic) Onset Date: ~02/27/18 Z95.5 PTCA/Stent of the prox LAD and 1st Diagonal 02/15/00 @ [facility]; PTCA/DALJIT to mid LAD and successful PCI with PTCA to mid OM 1 02/27/18; Postsurgical percutaneous transluminal coronary angioplasty (PTCA) status Z98.61 PTCA/Stent of the prox LAD and 1st Diagonal 02/15/00 H/O tubal ligation Z98.51 Hx of cardiac cath Z98.890 S/p bilateral carpal tunnel release Z98.890 Surgical History: angioplasty, cataract, herniorrhaphy, - - Coronary artery maricel nt placement, knee arthroscopy Psychiatric History: No pertinent psych hx HISTORIC INTERPRETER History: No pertinent HISTORIC INTERPRETER history Smoking Status: Former smoker - *Family History Maternal Family History: Family History (Last Reviewed 12/18/19 @ 15:59 by Katelyn Gomez) Father CAD (coronary artery disease) Myocardial infarction Mother Cancer Sister Breast cancer History Items: No pertinent history Paternal Family History: Family History (Last Reviewed 12/18/19 @ 15:59 by Katelyn Gomez) Father CAD (coronary artery disease) Myocardial infarction Mother Cancer Sister Breast cancer History Items: No pertinent history Review of Systems Constitutional: Denies: Chills, Fever, Weight Change HEENT: Denies: Head Aches, Sinus Congestion, Sinus Drainage Cardiovascular: Denies: Chest Pain, Palpitations Respiratory: Denies: Cough, Shortness of breath at rest, Sputum production Gastrointestinal: Denies: Abdominal Pain, Nausea, Vomiting Genitourinary: Denies: Dysuria Musculoskeletal: Denies: Joint Pain, Joint Tenderness Skin: Denies: Rash, Wounds Neurological: Denies: Numbness, Tingling, Focal weakness Psychiatric: Denies: Anxiety, Depression, Homicidal Ideations, Suicidal Ideations Hematologic/ Lymphatic: Denies: Easy Bruising, Easy Bleeding VTE Information - Inpt Only VTE Present on Admission: No - Physical Exam Vitals/I&O's: Vital Signs Temp Pulse Resp BP Pulse Ox 97.0 F L 70 16 154/75 H 95 06/03/20 09:12 06/03/20 09:12 06/03/20 09:12 06/03/20 09:12 06/03/20 09:12 Oxygen Delivery Method Room Air Weight: 50.8 kg Body Mass Index (BMI) 23.3 General: Alert, Oriented x3, Cooperative HEENT: Atraumatic, PERRLA, EOMI, Normocephalic Neck: Supple, No JVD, Negative Carotid Bruits Lungs: Clear to auscultation, Normal air movement Cardiovascular: Regular rate, No murmurs Abdomen: Bowel Sounds Present, Soft, Non Tender Extremities: No edema, Capillary Refill Less than 3 Seconds Skin: No rashes, No breakdown Musculoskeletal: No Tenderness to Palpation of Joints or Extremities Neurological: Cranial nerves II-XII grossly intact Psych/Mental Status: Normal Affect, Appropriate Microbiology Past 72 Hours 06/02/20 13:00 Interface Orders SARS-CoV-2 Antigen (Rapid) - Final Assessment/Plan All Active Problems (Last Reviewed 04/28/20 @ 09:[address] Usman Gomez MD) Gross hematuria (Acute) Epigastric pain (Acute) Chest pain (Acute) Abnormal stress test (Acute) Coronary artery anomaly (Acute) Plan for cystoscopy, random bladder biopsy probably, right ureteroscopy, retrograde pyelogram and possible biopsy of the right renal pelvis. Also send the urine for cytology again.
[2020-06-03] MEDS: Lactated Ringers 1,000 ML 100 ML IV (09:30)
[2020-06-03 09:41] LABS: Bedside Glucose 150 mg/dL (70-110)
[2020-06-03] MEDS: Cefazolin 2 GM in 0.9% Normal Saline 100 ML IV (09:55)
--- NOTE | 2020-06-03 09:57 | PCM.DC.URO ---
Discharge Diet: Light diet - advance as tolerated Discharge Activity: Return to Normal Activity Call your doctor if your incision/area has: Continuous Slow Oozing, Sudden Increased Bleeding Call your doctor if you observe: Fever of 101 or Higher Suture Line Care: Avoid Pulling/Pushing, Avoid Pinching/Bending Allergies/Adverse Reactions: Allergies metronidazole [From Flagyl] Allergy (Verified 05/28/20 11:21) Other oxycodone HCl [From OxyContin] Allergy (Verified 05/28/20 11:21) Other Medications to take at Discharge multivitamin 1 tab PO QDAY 05/30/17 pantoprazole 40 mg tablet,delayed release 40 mg PO QDAY 05/30/17 losartan 100 mg tablet 50 mg PO BID tab 11/08/17 metoprolol succinate 25 mg tablet,extended release 24 hr 12.5 mg PO BID tab 01/11/18 amlodipine 2.5 mg tablet 2.5 mg PO DAILY #30 tab 12/18/19 Citalopram [Celexa] 10 mg PO DAILY 04/28/20 Insulin Aspart [Novolog Flexpen] 5 units SC TID 04/28/20 Insulin Detemir [Levemir Flextouch] 10 units SQ BID 04/28/20 Isosorbide Mononitrate [Isosorbide Mononitrate ER] 15 mg PO DAILY 04/28/20 Leflunomide 10 mg PO DAILY 04/28/20 Simvastatin 20 mg PO QHS 04/28/20 Tramadol HCl [Ultram] 50 mg PO BID PRN PRN 04/28/20 Albuterol Inhaler [Ventolin Hfa (SP)] 1 - 2 puff INHALATION Q6H PRN PRN 05/28/20 Clopidogrel Bisulfate [Clopidogrel] 75 mg PO DAILY 05/28/20 Ciprofloxacin [Cipro] 500 mg PO BID #6 tab 06/03/20 Ibuprofen 400 mg PO Q4H PRN PRN 10 Days #14 tab 06/03/20 The following prescriptions were given: Ciprofloxacin [Cipro] 500 mg PO BID #6 tab [id number] Ibuprofen 400 mg PO Q4H PRN PRN 10 Days #14 tab PRN Reason: Pain 1-10 Or Fever Transmission Status: Pending to [id number] Primary Care Physician: Zulma Corral MD [Primary Care Provider] - Test Results: Test results from this visit will be discussed in further detail at your follow-up appointment, if applicable. Please Follow Up With: Usman Gomez MD When: in 2 weeks, please call to make an appointment.
--- NOTE | 2020-06-03 10:17 | PCM.OPRPT ---
Report of Operation Date of Procedure: 06/03/20 Pre-Operative Diagnosis: History of gross hematuria, abnormal urine cytology from the right kidney Post-Operative Diagnosis: Same Surgery/Procedure Performed:: Cystoscopy, right retrograde pyelogram interpretation fluoroscopic images, and right ureteroscopy. No stent Description of Surgical Findings:: This is a patient who presents to the hospital for follow-up regarding abnormal cytology and history of bleeding. I discussed with the patient how the surgery would be performed and we reviewed the risks and benefits of the surgery. The risk and benefits and that the patient may need multiple procedures. We discussed the risk of an infection, the risk of bleeding. We discussed the very rare risk of serious complicated injury to the ureter. After full discussion and all questions address with the patient the consent form was signed the side was marked appropriately and the patient was taken back to the operating room for the procedure. The patient was taken back to the operating room. After induction of anesthesia by the anesthesiology team the patient was placed in dorsolithotomy position. The genitals were prepped and draped in usual sterile fashion. I went into the bladder with a 21 Japanese rigid cystourethroscope through the urethra. Upon entering the bladder I inspected the trigone the left and right ureteral orifice and the bladder itself. I then cannulated the right ureteral orifice and advanced a 0.038 Glidewire up into the kidney. Then over the Glidewire I advanced a 5 Fr Ureteral catheter and performed a retrograde pyelogram with about 10cc of contrast, to delineate the anatomy and no filling defects were seen completely normal anatomy in the right retrograde. Then a ureteral balloon dilator was advanced over the wire and the distal ureter was balloon dilated with a 12 Fr x 5cm balloon dilator. I then placed a 0.038 Guidewire as a working wire and over the working 0.038 guidewire I went in with the flexible 7.5fr ureteroscope. I inspected the entire length of the right ureter, inspected the upper pole midpole lower pole of the right kidney inspected the renal pelvis no findings are seen no abnormalities no tumors or growths all anatomy is normal. A retrograde pyelogram was performed with 10cc of contrast and no extravasation of contrast or perforation was identified in the ureter, I then removed the flexible ureteroscope. I then drained the patient's bladder and the cystoscope was removed and the patient was taken back to the recovery room in good position. The patient was given discharge instructions to call the office for instructions Type of Anesthesia:: General Drains: none - Admit VTE Documentation VTE Present on Admission: No VTE Mechan Device Prophylaxis: SCD's
[2020-06-03 10:28] VITALS: BP 136/59; BP 154/75; PULSE 61; RESP 16; TEMP 36.3; O2SAT 96
[2020-06-03 10:30] VITALS: BP 135/63; BP 154/75; PULSE 64; RESP 16; O2SAT 96
[2020-06-03 10:45] VITALS: BP 145/60; BP 154/75; PULSE 58; RESP 16; O2SAT 96
[2020-06-03 11:00] VITALS: BP 138/59; BP 154/75; PULSE 57; RESP 16; TEMP 36.8; O2SAT 96
[2020-06-03 11:15] LABS: Bedside Glucose 155 mg/dL (70-110)
[2020-06-03 12:30] VITALS: BP 127/52; BP 154/75; PULSE 70; RESP 16; TEMP 36.4; O2SAT 95
== END 2020-06-03 12:32 | disposition home or self-care (01) ==
LOC: SDC 08:26 → AC 08:26
PROVIDERS: PCP Internal Medicine; Referring Provider Urology; Visit Provider Urology
PROC: (CPT 52332; principal; 2020-06-03 10:20)
DX: R31.0 Gross hematuria (principal); E11.9 Type 2 diabetes mellitus without complications; E78.00 Pure hypercholesterolemia, unspecified; I10 Essential (primary) hypertension; I25.10 Atherosclerotic heart disease of native coronary artery without angina pectoris; G47.30 Sleep apnea, unspecified; J44.9 Chronic obstructive pulmonary disease, unspecified; Z79.4 Long term (current) use of insulin; Z80.3 Family history of malignant neoplasm of breast; Z82.49 Family history of ischemic heart disease and other diseases of the circulatory system; Z86.73 Personal history of transient ischemic attack (TIA), and cerebral infarction without residual deficits; Z87.891 Personal history of nicotine dependence; Z88.1 Allergy status to other antibiotic agents; Z88.5 Allergy status to narcotic agent; Z95.5 Presence of coronary angioplasty implant and graft; I65.23 Occlusion and stenosis of bilateral carotid arteries
CPT/HCPCS: 52351; 76000; 82962; 87426; C9803; J7120; C1769; J2405

== ENCOUNTER 2020-07-15 13:55 | Outpatient (RCR) | payer MEDICARE, OTHER, SELFPAY ==
[2020-06-17 13:24] VITALS: BMI 23.6
== END 2020-07-15 23:59 ==
LOC: IMMUN 13:55
PROVIDERS: PCP Internal Medicine; Visit Provider Family Medicine
DX: Z23 Encounter for immunization (principal)
CPT/HCPCS: 0011A; 0012A; 91301

== ENCOUNTER → 2021-04-20 13:08 | Outpatient (CLI) | payer MEDICARE, OTHER, SELFPAY ==
--- NOTE | 2021-04-20 13:10 | CDU_ITS ---
Reason For Study: CAROTID ARTERY STENOSIS Rt. Velocities/BP Lt. Velocities/BP Prox CCA 82.0/10.3 cm/sec. Prox CCA 82.3/16.4 cm/sec. Mid CCA 67.7/11.6 cm/sec. Mid CCA 72.4/10.9 cm/sec. Dist CCA 66.4/12.9 cm/sec. Dist CCA 85.6/15.3 cm/sec. Prox ICA 206.3/45.6 cm/sec. Prox ICA 75.7/15.3 cm/sec. Mid ICA 150.0/23.1 cm/sec. Mid ICA 94.3/17.5 cm/sec. Dist ICA 113.7/25.6 cm/sec. Dist ICA 161.8/39.5 cm/sec. Rt. ICA/CCA = 206.3/67.7=3.0. Lt. ICA/CCA = 161.8/72.4=2.2. Prox ECA 74.2/0.0 cm/sec. Prox ECA 283.1/0.0 cm/sec. Rt. Vert. 71.1/12.2 cm/sec. Lt. Vert. 56.4/9.2 cm/sec. Right Extracranial There is heterogeneous, irregular atherosclerotic plaque noted in the right common carotid artery. There is heterogeneous, irregular atherosclerotic plaque noted in the right internal carotid artery. The right internal carotid artery is very tortuous. There is homogeneous, smooth atherosclerotic plaque noted in the right external carotid artery. Antegrade flow is noted in the right vertebral artery. There is heterogeneous, irregular atherosclerotic plaque noted in the right bulb. Left Extracranial There is heterogeneous, irregular atherosclerotic plaque noted in the left common carotid artery. There is heterogeneous, irregular atherosclerotic plaque noted in the left internal carotid artery. The left internal carotid artery is very tortuous. There is heterogeneous, irregular atherosclerotic plaque noted in the left external carotid artery. Antegrade flow is noted in the left vertebral artery. There is heterogeneous, irregular atherosclerotic plaque noted in the left bulb. Procedure Carotid Duplex [id number]. This is a Carotid Duplex examination using B-mode, color flow and specral Doppler. Exam performed in department. VL/Carotid Duplex Ultrasound Interpretation Summary Irregular calcific plaque at the proximal right internal carotid artery with 50 to 69% stenosis. Tortuous right internal carotid artery noted. Less than 50% stenosis right external carotid artery Irregular calcific plaque of the proximal left internal carotid artery less les s than 50% stenosis of the proximal internal carotid artery. Velocities are slightly elevated with the distal left internal carotid artery i n a location of tortuosity and significant depth. Degree of stenosis difficult to determine Greater than 50% stenosis left external carotid artery Patent and antegrade vertebral arteries bilaterally Ordering Physician: Christopher Doty Referring Physician: Zulma Corral Performed By: Emilia Rice, ANACS, RVT
== END ==
PROVIDERS: PCP Internal Medicine; Visit Provider Internal Medicine Cardiovascular Disease
DX: I65.23 Occlusion and stenosis of bilateral carotid arteries (principal)
CPT/HCPCS: 93880

== ENCOUNTER 2021-04-30 11:16 | Inpatient (IN) | payer MEDICARE, OTHER, SELFPAY ==
[2021-04-30] VITALS (15 sets, daily range): BP systolic 124–175; BP diastolic 61–91; PULSE 62–77; RESP 14–22; TEMP 36.9–37.5; O2SAT 84–97; BMI 22.1
--- NOTE | 2021-04-30 11:44 | RAD_ITS ---
STUDY: X-RAY CHEST REASON FOR EXAM: Female, 85 years old. SOB and weakness. Covid positive. TECHNIQUE: Single AP portable view of the chest. COMPARISON: Comparison is made with prior examination dated 11/19/2019. FINDINGS: EKG electrodes are seen. There is hyperinflation of the lungs consistent with chronic obstructive lung disease (COPD). Persistent increased markings in the medial aspect of the right upper lobe. There is no demonstrated pleural abnormality. Normal size heart. Normal mediastinum and jackeline. Normal visualized pulmonary arteries. There is atherosclerotic calcification of the aortic arch with tortuosity. There are diffuse degenerative changes of the visualized thoracic spine. There is degenerative osteoarthritis of the bilateral shoulders. There is no demonstrated abnormality of the visualized soft tissue structures of the upper abdomen. RAD/Chest 1 View (Portable) IMPRESSION: Persistent increased markings in the medial right lung apex. Correlation with CT scan is recommended. Electronically Signed: Colin Mae MD at 12:19 EST , Service support ,
[2021-04-30 12:09] LABS: Anion Gap 8 (5-15); BUN 23 mg/dL (7-18); BUN/Creat Ratio 20.5 RATIO (10-20); Calcium,Total 9.6 mg/dL (8.5-10.1); Chloride 98 mmol/L (98-107); Creatinine, Serum 1.12 mg/dL (0.55-1.02); EST Glomerular Filtration Rate 49 mL/min (>60); Est Glom Filt Rate - Afr Amer 59 mL/min (>60); Estimated Creatinine Clearance 27.37 ml/min; Glucose 222 mg/dL (74-106); Potassium 3.9 mmol/L (3.5-5.1); Sodium Level 135 mmol/L (136-145)
[2021-04-30 12:35] LABS: Absolute Lymphocyte Count 0.91 X10^3/uL (0.83-4.51); Absolute Neutrophil Count 5.7 X10^3/uL (2.0-7.7); Basophil# 0.06 X10^3/uL; Basophil% 0.8 % (0-1); Eosinophil# 0.28 X10^3/uL; Eosinophils% 3.7 % (0-5); Hematocrit 38.9 % (37-47); Lymphocyte # 0.91 X10^3/ul (0.83-4.51); Lymphocyte % 11.9 % (19-41); Mean Corp Hgb Conc 33.4 g/dL (32-36); Mean Corpuscular Hgb 29.7 pg (27.0-32.0); Mean Platelet Vol. 11.9 fl (6.2-12.0); Monocyte# 0.63 X10^3/uL; Monocyte% 8.3 % (0-10); NRBC Flagged by Analyzer 0 % (0-5); Neutrophil # 5.71 X10^3/uL (2.7-7.7); Neutrophil % 74.9 % (47-70); Platelet Count 167 K/mm3 (150-450); RBC Distribution Width CV 12.9 % (11.6-14.6); RBC Distribution Width SD 42.2 fl (35.1-43.9); Red Blood Count 4.37 M/mm3 (4.2-5.4); White Blood Count 7.6 K/mm3 (4.4-11.0)
--- NOTE | 2021-04-30 12:40 | CT_ITS ---
STUDY: CTA CHEST REASON FOR EXAM: Female, 85 years old. Abnormal Chest xray RADIATION DOSAGE (If Supplied By Facility): CTDIvol = ( 3.81 ) mGy, DLP = ( 165.63 ) mGycm TECHNIQUE: The examination was performed with the intravenous administration of IV 75mL [id number]-370. Post-processing of the angiographic images was performed, with multiplanar reformation and 3D reconstruction. Individualized dose optimization techniques were used for this CT. COMPARISON: Comparison is made with prior chest radiograph done earlier in the day. FINDINGS: Normal enhancement of the main pulmonary artery and right and left pulmonary arteries. Normal enhancement of the bilateral peripheral pulmonary arteries. There is no demonstrated pulmonary embolism. Normal thoracic aorta and visualized great vessels. There is no demonstrated aortic dissection. There are calcifications of the coronary arteries. There are visualized mediastinal lymph nodes, which are within normal size limits, and with normal morphology. Normal hilar regions. Normal visualized trachea and bronchi. Mild degree of the groundglass appearance in the peripheral aspects of both the right and left lower lobes. This may represent early pneumonitis associated with Covid .Clinical correlation is recommended. Minimal increased linear markings in the medial aspect of the right upper lobe suggestive of scarring. There is a 4.3 mm noncalcified nodule in the anterior lateral aspect of the right upper lobe as seen on axial image #133. Tiny calcified granuloma in the peripheral lateral aspect of the right middle lobe. Mild degree of increased markings at the lung bases suggestive of mild degree of lung scarring. Normal pleura. Normal chest wall structures. Normal osseous structures. Normal visualized upper abdomen. CT/CTA Chest W/WO Contrast IMPRESSION: Mild scarring in the medial aspect of the right upper lobe. 4.3 mm noncalcified nodule in the lateral aspect of the right upper lobe. Mild degree of the groundglass appearance in the peripheral distribution involving the lower lobes as described. Pneumonitis associated with Covid.should be ruled out. Electronically Signed: Colin Mae MD at 13:34 EST , Service support ,
[2021-04-30] MEDS: Acetaminophen 500 MG Tablet 1000 MG PO (13:35)
--- NOTE | 2021-04-30 13:54 | EX.ED.VIS.UR ---
HPI HPI - URI History of Present Illness Chief Complaint: Shortness of Breath Narrative Narrative: 85-year-old female presenting for evaluation. She has COVID-19 since Monday. She has a positive test in [facility]. She states that she does have low-grade fevers, chills, body aches. She states the body aches are the worst of her complaints. She does have a mild headache. She does not have nausea or vomiting. She denies chest pain. She has mild dyspnea and a cough. She states that she has been trying to be referred for monoclonal antibodies but has not been able to be referred as of yet. Patient states he was vaccinated for COVID-19. ROS ROS ED Constitutional Constitutional ED: Reports chills and fever(s); Denies weight loss Eyes Eyes: Denies blurry vision or diplopia ENT ENT ED: Reports rhinorrhea; Denies ear pain or sore throat Cardiovascular Cardiovascular: Denies chest pain or palpitations Respiratory/Chest Respiratory/Chest: Reports cough and dyspnea Gastrointestinal Gastrointestinal: Denies abdominal pain, nausea or vomiting Genitourinary Genitourinary ED: Denies dysuria or hematuria Musculoskeletal Musculoskeletal: Reports myalgias; Denies arthralgias or neck pain Integumentary Denies Abrasions or rash Neurologic Neurologic: Reports headache(s); Denies paresthesias or weakness PFSH PFS Medical History Abnormal stress test Arteriovenous fistula, acquired, 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 Bilateral carotid artery stenosis Cerebral artery occlusion Chest pain COPD (chronic obstructive pulmonary disease) Coronary artery anomaly Epigastric pain Essential (primary) hypertension Presence of stent in coronary artery (~02/27/18) Pure hypercholesterolemia Sleep apnea Spinal stenosis TIA (transient ischemic attack) Home Medications multivitamin 1 tab PO QDAY 05/30/17 [History Last Taken 04/28/20] pantoprazole 40 mg tablet,delayed release 40 mg PO QDAY 05/30/17 [History Last Taken 04/28/20] losartan 100 mg tablet 50 mg PO BID tab 11/08/17 [History Last Taken 04/28/20] metoprolol succinate 25 mg tablet,extended release 24 hr 12.5 mg PO BID tab 01/11/18 [History Last Taken 04/28/20] citalopram 10 mg PO DAILY 04/28/20 [History Last Taken 04/28/20] insulin aspart U-100 5 units SC TID 04/28/20 [History Last Taken 04/28/20] insulin detemir U-100 10 units SQ BID 04/28/20 [History Last Taken 04/28/20] leflunomide 10 mg PO DAILY 04/28/20 [History Last Taken 04/28/20] tramadol 50 mg PO BID PRN PRN 04/28/20 [History Last Taken 04/28/20] albuterol sulfate 1 - 2 puff INHALATION Q6H PRN PRN 05/28/20 [History Last Taken Unknown] isosorbide mononitrate 30 mg tablet,extended release 24 hr 15 mg PO DAILY #45 tab 06/08/20 [Rx Last Taken Unknown] aspirin 81 mg tablet,delayed release 81 mg PO DAILY 06/17/20 [History Last Taken Unknown] amlodipine 2.5 mg tablet 2.5 mg PO DAILY #90 tab 09/21/20 [Rx Last Taken Unknown] simvastatin 40 mg tablet 40 mg PO QHS tab 04/07/21 [History Last Taken Unknown] Allergy/AdvReac Type Severity Reaction Status Date / Time metronidazole [From Flagyl] Allergy Other Verified 04/07/21 11:43 oxycodone HCl Allergy Other Verified 04/07/21 11:43 [From OxyContin] Family History Father CAD (coronary artery disease) Myocardial infarction Mother Cancer Sister Breast cancer Surgical History H/O tubal ligation History of cystoscopy (06/03/20) Hx of cardiac cath Presence of coronary angioplasty implant and graft (~02/27/18) S/p bilateral carpal tunnel release Social History Smoking Status: Former smoker how long ago did patient quit smokin years ago second hand exposure: No alcohol intake: never substance use type: does not use caffeine: Yes Type: coffee Number of servings: 2 EXAM Physical Exam Const Vital Signs: 04/30/21 11:17 04/30/21 11:25 04/30/21 13:40 Temperature 99.5 F H 99.5 F H Temperature Source Oral Oral Pulse Rate 77 77 77 Respiratory Rate 22 H 16 17 Respiratory Effort Short of Breath Blood Pressure 163/75 H 163/75 H 175/91 H Blood Pressure Mean 104 104 119 Pulse Ox 92 91 95 Oxygen Delivery Method Room Air Room Air Room Air Oxygen Flow Rate (L/min) 04/30/21 14:05 04/30/21 14:07 04/30/21 15:00 Temperature Temperature Source Pulse Rate 65 Respiratory Rate 14 Respiratory Effort Blood Pressure 127/62 H Blood Pressure Mean 83 Pulse Ox 88 94 88 Oxygen Delivery Method Room Air Nasal Cannula Room Air Oxygen Flow Rate (L/min) 2 04/30/21 15:07 04/30/21 15:31 04/30/21 16:08 Temperature 99.2 F H 98.7 F Temperature Source Oral Oral Pulse Rate 66 63 62 Respiratory Rate 20 H 22 H 18 Respiratory Effort Blood Pressure 134/61 H 134/61 H 128/66 H Blood Pressure Mean 85 85 86 Pulse Ox 96 96 95 Oxygen Delivery Method Nasal Cannula Nasal Cannula Nasal Cannula Oxygen Flow Rate (L/min) 2 2 2 Positive well nourished General Appearance ED: NAD; Negative for pallor HEENT Reports moist mucous membranes normocephalic and atraumatic Eyes PERRL and EOMs intact bilaterally Resp normal respiratory effort Auscultation: rales bilateral 1/[address] way up Cardio Rate: regular rate Psych mental status grossly normal Skin General Skin Exam: Negative for jaundice or pallor MDM MDM MDM Narrative Medical decision making narrative: 85-year-old female presenting for evaluation. She is day 6 of Covid symptoms. She does not have any chest pain but she does have some dyspnea and some shortness of breath. Patient not requiring any oxygen currently. EKG on my interpretation shows a sinus rhythm with a ventricular rate of 70 bpm with nonspecific T wave changes. Patient is not experiencing any chest pain. Chest x-ray on my interpretation shows no acute cardiopulmonary process however the radiologist does read this as persistent increased markings in the right lung base. He recommended CT of the chest. Given the patient has Covid I did obtain a CTA. This does not show any PE or dissection. Does identify a 4.3 mm noncalcified nodule in the lateral aspect of the right upper lobe. There is also mild degree of groundglass opacities in the lower lobes interpreted as pneumonitis. I did look up the patient's Covid test and she is positive complete in clinic. I printed this out and put it on her chart. During the patient stay she was ambulated and stayed up to 90% while walking however when she sat down she dropped down to 87%. She was placed on oxygen for short while and then was given another trial and did desaturate again. At this point her daughter had arrived and there was some concern that the patient states she is falling a lot more at home. She did not admit this to her daughter previously. The sound like she is falling daily. She has multiple bruises previous. She admits to breaking her ribs a few weeks ago. This is not present on imaging currently. Given her concern for falling, weakness, as well as hypoxia patient will be admitted to the hospital. I did speak with the hospitalist. She was admitted to the floor in stable condition. Her first dose of methadone was given in ED. Impression: 1. Hypoxic respiratory failure 2. COVID-19 pneumonitis 3. 4.3 mm pulmonary nodule. 4. Falls Lab Data Attestation: I reviewed the patient's lab results. Labs: Laboratory Results - last 24 hr 04/30/21 04/30/21 04/30/21 11:20 11:20 11:58 WBC 7.6 RBC 4.37 Hgb 13.0 Hct 38.9 MCV 89.0 MCH 29.7 MCHC 33.4 RDW Std Deviation 42.2 RDW Coeff of Yaneli 12.9 Plt Count 167 MPV 11.9 Immature Gran % (Auto) 0.400 Neut % (Auto) 74.9 H Lymph % (Auto) 11.9 L [place] % (Auto) 8.3 Eos % (Auto) 3.7 Baso % (Auto) 0.8 Absolute Neuts (auto) 5.7 Absolute Lymphs (auto) 0.91 Nucleated RBC % 0 Sodium 135 L Potassium 3.9 Chloride 98 Carbon Dioxide 29.0 Anion Gap 8 BUN 23 H Creatinine 1.12 H Estim Creat Clear Calc 27.37 Est GFR (MDRD) Af Amer 59 L Est GFR (MDRD) Non-Af 49 L BUN/Creatinine Ratio 20.5 H Glucose 222 H Calcium 9.6 Troponin I High Sens 12 Radiography Diagnostic Testing: Clinical Impression(s) from Imaging Studies Chest X-Ray 04/30/21 11:44 IMPRESSION: Persistent increased markings in the medial right lung apex. Correlation with CT scan is recommended. Electronically Signed: Colin Mae MD at 12:19 EST , Service support , Chest CTA 04/30/21 12:40 IMPRESSION: Mild scarring in the medial aspect of the right upper lobe. 4.3 mm noncalcified nodule in the lateral aspect of the right upper lobe. Mild degree of the groundglass appearance in the peripheral distribution involving the lower lobes as described. Pneumonitis associated with Covid.should be ruled out. Electronically Signed: Colin Mae MD at 13:34 EST , Service support , Discharge Plan Triage Chief Complaint: Shortness of Breath ED Provider: Marin Christianson Dx/Rx/DC Orders Prescriptions: No Action pantoprazole 40 mg tablet,delayed release (DR/EC) 40 mg PO QDAY RF: 0 multivitamin tablet 1 tab PO QDAY RF: 0 losartan 100 mg tablet 50 mg PO BID RF: 0 metoprolol succinate 25 mg tablet extended release 24 hr 12.5 mg PO BID RF: 0 aspirin 81 mg tablet,delayed release (DR/EC) 81 mg PO DAILY RF: 0 leflunomide 10 MG tablet 10 mg PO DAILY RF: 0 tramadol 50 MG tablet 50 mg PO BID PRN PRN (Reason: Pain 1-10 Or Fever) RF: 0 citalopram 20 MG tablet 10 mg PO DAILY RF: 0 insulin aspart U-100 100 UNITS/ML insulin pen 5 units SC TID RF: 0 insulin detemir U-100 100 UNIT/ML insulin pen 10 units SQ BID RF: 0 simvastatin 40 mg tablet 40 mg PO QHS RF: 0 albuterol sulfate 1 INHALER inhaler 1 - 2 puff INHALATION Q6H PRN PRN (Reason: Asthma) RF: 0 isosorbide mononitrate 30 mg tablet extended release 24 hr 15 mg PO DAILY Qty: 45 RF: 3 amlodipine 2.5 mg tablet 2.5 mg PO DAILY Qty: 90 RF: 3 Primary Care Provider: Zulma Corral
--- NOTE | 2021-04-30 13:58 | EKG12_ITS ---
Test Reason : Blood Pressure : / mmHG Vent. Rate : 070 BPM Atrial Rate : 070 BPM P-R Int : 164 ms QRS Dur : 068 ms QT Int : 390 ms P-R-T Axes : 035 -25 198 degrees QTc Int : 421 ms Sinus rhythm with Premature atrial complexes ST & T wave abnormality, consider anterolateral ischemia Abnormal ECG Confirmed by TENZIN ALLRED, [place] ([id number]), photography editor ZEESHAN THAKKAR ([id number]) on 05/03/2021 9:38:14 AM Referred By: DONALD/YOUNG Confirmed By:ALEXANDRIA DAVE MD
[2021-04-30 15:18] LABS: Troponin-I HS 12 pg/mL (3.0-54.0)
[2021-04-30] MEDS: dexAMETHasone 10 MG/ML Vial 6 MG IV (15:54)
--- NOTE | 2021-04-30 16:07 | PCM.HP.STD ---
HPI - General General Date of Admission: 04/30/21 Date of Service: 04/30/21 Chief Complaint: Shortness of breath/debility HPI Narrative ESTUARDO MOODY, is a 85 F who presented to the emergency department [facility] on 04/30/2021 when she complained of shortness of breath and debility. The patient has had some low-grade temperature elevations but no documented fever, chills, body aches, nausea, dysgeusia, decreased appetite, shortness of breath and mild cough since 04/25/2021. Her daughter performed a rapid test on Monday for COVID-19 and it was positive she also had a test on Monday at the [facility] for confirmation which was positive as well. She has been vaccinated but not boosted. She reports that she was planning on having that done this week. They were evidently trying to get her referral for monoclonal antibodies but that has not yet been able to be done. The daughter is with her at the bedside and assists with some of the history although the patient is very clear. She evidently had a fall prior to developing Covid symptoms where she fractured a couple of ribs. She has since had 2 falls since being diagnosed with Covid. She states she is to use a walker at home but was not using her walker for either these falls. She feels generally debilitated since developing Covid and having significant weakness. Her initial oxygen saturations were 91% on room air but she ambulated to the back her bathroom came back and at rest her sats dropped to 84% on room air. She recovered only to 88% and was placed on 2 L nasal cannula. They did trial her off oxygen again and she dropped again to 88%. 2 L of oxygen was replaced and oxygen saturations have been stable since at 95 to 96%. Her vital signs are otherwise stable. Her T-max in the emergency department was 99.5. Her CBC is unremarkable however her differential shows a lymphopenia. Her BMP shows mild hyponatremia with a sodium of 135 stably elevated BUN and creatinine at 23 and 1.12 respectively. Her serum glucose is 222. A troponin was obtained and was 12. Her chest x-ray showed persistent increased markings at the medial right lung apex and a CTA was performed. Her CTA showed mild scarring in the medial aspect of the right upper lobe. A 4.3 mm or noncalcified nodule in the lateral aspect of the right upper lobe, and a mild degree of groundglass appearance in the peripheral distribution of bilateral lower lung paul. Given her hypoxia and need for oxygen in conjunction with her debility request for admission was made. She and family are amenable to placement at intermediate facility if need be but would prefer to be discharged home with home health care if possible. [facility] Medical History Abnormal stress test Arteriovenous fistula, acquired, of heart Atherosclerosis of [place] coronary artery of [place] heart without angina pectoris Bilateral carotid artery stenosis Cerebral artery occlusion Chest pain COPD (chronic obstructive pulmonary disease) Coronary artery anomaly Epigastric pain Essential (primary) hypertension Presence of stent in coronary artery (~02/27/18) Pure hypercholesterolemia Sleep apnea Spinal stenosis TIA (transient ischemic attack) Home Medications multivitamin 1 tab PO QDAY 05/30/17 [History Last Taken 04/28/20] pantoprazole 40 mg tablet,delayed release 40 mg PO QDAY 05/30/17 [History Last Taken 04/28/20] losartan 100 mg tablet 50 mg PO BID tab 11/08/17 [History Last Taken 04/28/20] metoprolol succinate 25 mg tablet,extended release 24 hr 12.5 mg PO BID tab 01/11/18 [History Last Taken 04/28/20] citalopram 10 mg PO DAILY 04/28/20 [History Last Taken 04/28/20] insulin aspart U-100 5 units SC TID 04/28/20 [History Last Taken 04/28/20] insulin detemir U-100 10 units SQ BID 04/28/20 [History Last Taken 04/28/20] leflunomide 10 mg PO DAILY 04/28/20 [History Last Taken 04/28/20] tramadol 50 mg PO BID PRN PRN 04/28/20 [History Last Taken 04/28/20] albuterol sulfate 1 - 2 puff INHALATION Q6H PRN PRN 05/28/20 [History Last Taken Unknown] isosorbide mononitrate 30 mg tablet,extended release 24 hr 15 mg PO DAILY #45 tab 06/08/20 [Rx Last Taken Unknown] aspirin 81 mg tablet,delayed release 81 mg PO DAILY 06/17/20 [History Last Taken Unknown] amlodipine 2.5 mg tablet 2.5 mg PO DAILY #90 tab 09/21/20 [Rx Last Taken Unknown] simvastatin 40 mg tablet 40 mg PO QHS tab 04/07/21 [History Last Taken Unknown] Allergy/AdvReac Type Severity Reaction Status Date / Time metronidazole [From Flagyl] Allergy Other Verified 04/07/21 11:43 oxycodone HCl Allergy Other Verified 04/07/21 11:43 [From OxyContin] Family History Father CAD (coronary artery disease) Myocardial infarction Mother Cancer Sister Breast cancer Surgical History H/O tubal ligation History of cystoscopy (06/03/20) Hx of cardiac cath Presence of coronary angioplasty implant and graft (~02/27/18) S/p bilateral carpal tunnel release Social History Smoking Status: Former smoker how long ago did patient quit smokin years ago second hand exposure: No alcohol intake: never substance use type: does not use caffeine: Yes Type: coffee Number of servings: 2 ROS Constitutional Constitutional: Reports anorexia, chills, fatigue and malaise; Denies change in weight, fever(s), night sweats, weakness or other Eyes Eyes: Denies blurry vision, change in eye color, change in vision, discharge from eye(s), double vision, erythema, eye pain, loss of vision or other ENT HEENT: Denies abnormal hearing, dysphagia, ear pain, epistaxis, headache(s), hearing loss, nasal congestion, nasal discharge, post nasal drip, sinus pressure, sore throat or other Cardiovascular Cardiovascular: Reports dyspnea on exertion; Denies chest pain, claudication, edema, lightheadedness, orthopnea, palpitations, paroxysmal nocturnal dyspnea, rapid heart rate, syncope or other Respiratory/Chest Respiratory/Chest: Reports cough, dyspnea, shortness of breath at rest and shortness of breath with exertion; Denies excessive phlegm production, hemoptysis, productive cough, wheezing or other Gastrointestinal Gastrointestinal: Reports nausea; Denies abdominal pain, coffee ground emesis, constipation, diarrhea, dyspepsia, hematemesis, hematochezia, loose stools, melena, vomiting or other Genitourinary Genitourinary: Denies burning urination, difficulty urinating, dysuria, hematuria, nocturia, urinary frequency, urinary hesitancy, urinary incontinence, urinary urgency or other Musculoskeletal Musculoskeletal: Reports myalgias; Denies arthralgias, back pain, joint pain, joint stiffness, joint swelling, neck pain or other Neurologic Neurologic: Reports other Details: Dysgeusia ; Denies abnormal gait, abnormal speech, confusion, disequilibrium, dizziness, focal weakness, headache(s), numbness, paresthesias, seizure-like activity, seizures, syncope, tingling or tremor(s) Psychiatric Psychiatric: Denies anxiety, depression, homicidal ideation, suicidal ideation or other Endocrine Endocrinology: Denies change in body appearance, cold intolerance, excessive sweating, heat intolerance, polydipsia, polyuria or other Hematologic/Lymphatic Hematologic/Lymphatic: Denies anemia, easy bleeding, easy bruising, lymphadenopathy or other Allergic/Immunologic Allergic/Immunologic: Denies rhinitis, hives, eczemia, asthma or other Vital Signs Vital Signs Vital Signs: 04/30/21 11:17 04/30/21 11:25 04/30/21 13:40 Temperature 99.5 F H 99.5 F H Temperature Source Oral Oral Pulse Rate 77 77 77 Respiratory Rate 22 H 16 17 Respiratory Effort Short of Breath Blood Pressure 163/75 H 163/75 H 175/91 H Blood Pressure Mean 104 104 119 Pulse Ox 92 91 95 Oxygen Delivery Method Room Air Room Air Room Air Oxygen Flow Rate (L/min) 04/30/21 14:05 04/30/21 14:07 04/30/21 15:00 Temperature Temperature Source Pulse Rate 65 Respiratory Rate 14 Respiratory Effort Blood Pressure 127/62 H Blood Pressure Mean 83 Pulse Ox 88 94 88 Oxygen Delivery Method Room Air Nasal Cannula Room Air Oxygen Flow Rate (L/min) 2 04/30/21 15:07 04/30/21 15:31 Temperature 99.2 F H Temperature Source Oral Pulse Rate 66 63 Respiratory Rate 20 H 22 H Respiratory Effort Blood Pressure 134/61 H 134/61 H Blood Pressure Mean 85 85 Pulse Ox 96 96 Oxygen Delivery Method Nasal Cannula Nasal Cannula Oxygen Flow Rate (L/min) 2 2 Weight Weight: 48.081 kg Body Mass Index (BMI) 22.1 Physical Exam Const alert, oriented x3, no apparent distress, average body habitus, healthy appearing and well nourished Constitutional Narrative: Elderly white female lying in bed, appropriately interactive, appears comfortable nontoxic, daughter at the bedside, patient is currently on 2 L nasal cannula with an oxygen saturation of 94% General Appearance: cooperative HEENT normocephalic, head/scalp atraumatic, hearing grossly normal bilaterally and moist oral mucous membranes HEENT Narrative: Mallampati 2, edentulous, no thrush Eyes PERRL, EOMs intact bilaterally and conjunctivae normal Eyes Narrative: No scleral icterus Neck no lymphadenopathy, supple and no JVD Neck Narrative: Trachea midline, no thyroid enlargement Resp normal respiratory effort, no retractions, no use of accessory muscles and clear to auscultation bilaterally Resp Narrative: Diminished but clear Auscultation: Negative for crackles, rales, rhonchi or wheezes Cardio regular rate, regular rhythm, S1 normal heart sound, S2 normal heart sound, no murmurs, no rub, no gallops, no clicks and no JVD GI normal to inspection, nondistended, normoactive bowel sounds, soft to palpation, non-tender and non-distended Extremity normal to inspection and no clubbing, cyanosis or edema Peripheral Pulses: Yes pulses 2+ throughout Skin no rashes or lesions noted, no wounds, skin turgor normal, no jaundice, no petechiae and no mottling Neuro oriented x3, CN's II-XII intact bilaterally, moves all extremities and no focal motor deficits Neuro Narrative: Moderate generalized weakness Sensorium / Orientation: awake and alert Speech: speech normal Psych affect normal Psych Narrative: Extremely pleasant Results Lab / Micro Data Result Diagrams: 04/30/21 11:58 04/30/21 11:20 Labs: Laboratory Results - last 24 hr 04/30/21 11:20: Sodium 135 L, Potassium 3.9, Chloride 98, Carbon Dioxide 29.0, Anion Gap 8, BUN 23 H, Creatinine 1.12 H, Estim Creat Clear Calc 27.37, Est GFR (MDRD) Af Amer 59 L, Est GFR (MDRD) Non-Af 49 L, BUN/Creatinine Ratio 20.5 H, Glucose 222 H, Calcium 9.6 04/30/21 11:20: Troponin I High Sens 12 04/30/21 11:58: WBC 7.6, RBC 4.37, Hgb 13.0, Hct 38.9, MCV 89.0, MCH 29.7, MCHC 33.4, RDW Std Deviation 42.2, RDW Coeff of Yaneli 12.9, Plt Count 167, MPV 11.9, Immature Gran % (Auto) 0.400, Neut % (Auto) 74.9 H, Lymph % (Auto) 11.9 L, [place] % (Auto) 8.3, Eos % (Auto) 3.7, Baso % (Auto) 0.8, Absolute Neuts (auto) 5.7, Absolute Lymphs (auto) 0.91, Nucleated RBC % 0 Radiology Impression Chest X-Ray 04/30/21 11:44 IMPRESSION: Persistent increased markings in the medial right lung apex. Correlation with CT scan is recommended. Electronically Signed: Colin Mae MD at 12:19 EST , Service support , Chest CTA 04/30/21 12:40 IMPRESSION: Mild scarring in the medial aspect of the right upper lobe. 4.3 mm noncalcified nodule in the lateral aspect of the right upper lobe. Mild degree of the groundglass appearance in the peripheral distribution involving the lower lobes as described. Pneumonitis associated with Covid.should be ruled out. Electronically Signed: Colin Mae MD at 13:34 EST , Service support , Assessment & Plan Assessment/Plan (1) Acute respiratory failure with hypoxia: (2) COVID-19: (3) Debility: (4) Falls: PLAN: Acute hypoxic respiratory failure secondary to COVID-19 -Patient has been vaccinated but not boosted -Developed symptoms on 04/25/2021 and had positive outpatient tests -Patient will need to quarantine until 05/15/2021 -Supplemental oxygen as needed--> currently requiring 2 L nasal cannula -Hypoxic at 88% at rest after she exerted herself but did not recover -Decadron day 1 of 10 -Remdesivir day 1 of 5 -Serial lab ordered for 5 days to monitor LFTs and renal function -Pep therapy/I-S -Urine culture if able -As needed albuterol -Encourage ambulation Debility/falls -Patient with increased debility and falls since Covid diagnosis and symptom onset -Consult PT/OT -Uses walker at home at baseline but did not when she had her 2 falls since being diagnosed -Family would like discharge home with home health care if possible but are amenable to placement at skilled facility if need be -Likely need to be here at least until Monday and if stable may be able to discharge home with home health care at that time DM-2 -Patient is on Levemir 10 units twice daily at baseline and log 5 units 3 times daily -Since patient on Decadron will increase to Lantus 15 units twice daily and Humalog 8 units 3 times daily -SSI -Accu-Cheks Hypertension -Continue Imdur -Continue losartan -Continue metoprolol GERD -Continue Protonix Hyperlipidemia -Continue simvastatin RA -Continue leflunomide -Continue as needed Ultram DVT prophylaxis -Lovenox 30 mg subcu twice daily -SCDs CODE STATUS -DNR CCA no intubation as per discussion the emergency department upon admission Charges/Coding Visit Charges Inpatient E&M: 31288 Init Hosp L3
--- NOTE | 2021-04-30 21:00 | PCS.PANDOC ---
PANDEMIC DOCUMENTATION INITIATED: Date: 01/04/2021 Time: 190
--- NOTE | 2021-04-30 22:22 | NURSING ---
Lab aware of the need for lab back up and are coming up to the floor to draw.
[2021-04-30] MEDS: 0.9% Saline Lock 10 ML Syringe IV (22:48)
[2021-04-30 23:00] LABS: Bedside Glucose 467 mg/dL (70-110)
[2021-04-30] MEDS: Enoxaparin 30 MG/0.3 ML Syringe SC (23:44)
[2021-04-30] MEDS: Atorvastatin Calcium 20 MG Tablet PO (23:45)
[2021-04-30] MEDS: Metoprolol(XL)Succ 25 MG Tablet 12.5 MG PO (23:45)
[2021-04-30] MEDS: Losartan Potassium 50 MG Tablet PO (23:46)
[2021-05-01] VITALS (10 sets, daily range): BP systolic 123–153; BP diastolic 67–72; PULSE 55–69; RESP 16–18; TEMP 36.6–36.9; O2SAT 92–98
[2021-05-01 00:10] LABS: Glucose 559 mg/dL (74-106)
[2021-05-01] MEDS: Insulin Lispro 100 UNIT/ML INSULN.PEN 18 UNIT SC (01:26)
[2021-05-01] MEDS: Menthol/Lanolin/Calamine/Znox 113 GM Tube 1 APPLIC TOPICAL ×4 (03:33→22:12)
[2021-05-01 05:11] LABS: Bedside Glucose 347 mg/dL (70-110)
[2021-05-01 07:00] LABS: Bedside Glucose 180 mg/dL (70-110)
[2021-05-01 07:31] LABS: Hematocrit 37.9 % (37-47); Hemoglobin 12.5 g/dL (12.0-15.0); Mean Corpuscular Hgb 29.2 pg (27.0-32.0); Mean Corpuscular Volume 88.6 fL (81-99); Mean Platelet Vol. 11.9 fl (6.2-12.0); Platelet Count 182 K/mm3 (150-450); RBC Distribution Width CV 12.6 % (11.6-14.6); RBC Distribution Width SD 40.7 fl (35.1-43.9); Red Blood Count 4.28 M/mm3 (4.2-5.4); White Blood Count 8.7 K/mm3 (4.4-11.0)
[2021-05-01 08:06] LABS: ALB/GLOB Ratio 0.7 RATIO (0.9-2.4); AST(SGOT) 21 U/L (15-37); Alanine Aminotransfer ALT/SGPT 22 U/L (13-56); Albumin, Serum 3.2 g/dL (3.2-5.0); Alkaline Phosphatase 71 U/L (45-117); Anion Gap 8 (5-15); BUN 30 mg/dL (7-18); BUN/Creat Ratio 27.5 RATIO (10-20); Calcium,Total 9.3 mg/dL (8.5-10.1); Chloride 100 mmol/L (98-107); Creatinine, Serum 1.09 mg/dL (0.55-1.02); EST Glomerular Filtration Rate 51 mL/min (>60); Est Glom Filt Rate - Afr Amer 61 mL/min (>60); Estimated Creatinine Clearance 28.15 ml/min; Globulin 4.4 g/dL (2.2-4.2); Glucose 179 mg/dL (74-106); Magnesium 1.2 mg/dL (1.6-2.6); Phosphorus 2.8 mg/dL (2.5-4.9); Potassium 4.5 mmol/L (3.5-5.1); Protein, Total 7.6 g/dL (6.4-8.2); Sodium Level 136 mmol/L (136-145)
[2021-05-01] MEDS: Insulin Lispro 100 UNIT/ML INSULN.PEN 8 UNIT SC ×2 (09:00→17:17)
[2021-05-01] MEDS: Insulin Lispro 100 UNIT/ML INSULN.PEN SC ×3 (09:02→22:09)
[2021-05-01] MEDS: Losartan Potassium 50 MG Tablet PO ×2 (10:25→22:12)
[2021-05-01] MEDS: Citalopram 10 MG Tablet PO (10:25)
[2021-05-01] MEDS: dexAMETHasone 2 MG TABLET 6 MG PO (10:26)
[2021-05-01] MEDS: Aspirin E.C. 81 MG Tablet PO (10:27)
[2021-05-01] MEDS: Isosorbide Mononitrate 30 MG Tablet 15 MG PO (10:27)
[2021-05-01] MEDS: Leflunomide 10 MG TABLET PO (10:29)
[2021-05-01] MEDS: Multivitamins,Therapeutic Tablet 1 TABLET PO (10:29)
[2021-05-01] MEDS: Pantoprazole Sodium 40 MG Tablet PO (10:30)
[2021-05-01] MEDS: amLODIPine 2.5 MG Tablet PO (10:30)
[2021-05-01] MEDS: Metoprolol(XL)Succ 25 MG Tablet 12.5 MG PO (10:31)
[2021-05-01] MEDS: Enoxaparin 30 MG/0.3 ML Syringe SC ×2 (10:33→22:09)
[2021-05-01 10:46] LABS: Bedside Glucose 160 mg/dL (70-110)
[2021-05-01 12:26] LABS: Bedside Glucose 140 mg/dL (70-110)
--- NOTE | 2021-05-01 12:35 | CASEMGMT ---
Addendum entered by Leanne Leong 05/01/21 16:19: TC to pt dtr per pt request. Patient dtr was provided a list of HHC providers including quality and resource use data and consistent with the patient?s preferred geographic region, medical needs, and insurance network verbally. The patient?s dtr preferred provider is [facility]. TC to intake, left message for Bhavya with referral. Discussed HHC as far as expectations with dtr and answered all questions. Original Note: EVERTON FRANCOIS Assessment: Face to Face with pt for initial transition planning/care coordination assessment. EVERTON FRANCOIS introduced self and role at [facility], pt voices understanding and consents to assessment. Pt is A/O x4 and answers all questions appropriately at this time. Pt sitting up in chair with O2 on in no distress. Care providers, pharmacy, and demographics verified/updated. Admitting Dx: acute hypoxic resp failure second to COVID 19 PCP:Shayna Specialists:Soren cardio; twan Boyce; erin Mac [facility]erred [facility]acy: [facility] Insurance: [employer] Prescription Benefit: yes LW/HPOA: Pt has a LW/DPOA on file at [facility]. Gretchen Aparicio has passed. LNOK: Yazmin Meeks, dtr Living Arrangements: Pt lives alone in a ground level apt with 2 steps to enter with a rail. Pt states she is I in ADL's. Transportation: Pt drives self and denies concerns with transportation. DME/HHC/SNF: Pt has a walker which she uses also a cane. She has a BGM with appropriate lancets and strips. Pt also has insulin and supplies. Pt has grab bars in the shower as well as a grab bar that goes over the tub. Pt has a pulse ox. Pt has had HHC in the past but does not know which agency provided it. Pt denies SNF stays. Pt was first tested at [facility] urgent care. Pt has family who can provide her with groceries and supplies. Discussed local DME companies should pt need home O2, she denies preference. Pt states she has been falling at home this week and is concerned. Discussed HHC and pt would like this EVERTON CM to call her daughter and provide her with a list of HHC agencies. She states she will let her choose. She states she does want a local agency though. Pt states no concerns with going home at time of dc. Pt states no further concerns/needs. CM to follow. Advised pt to ask CM if any further question/concerns/needs arise, voices understanding. Pt Goal: Home with HHC Plan: Home with HHC
[2021-05-01] MEDS: Acetaminophen 325 MG Tablet 650 MG PO (15:35)
[2021-05-01 17:05] LABS: Bedside Glucose 330 mg/dL (70-110)
--- NOTE | 2021-05-01 18:09 | PCM.PN.HOSP ---
Subjective Subjective Patient was seen and examined today, she is tearful during the time of my examination, recently she lost her daughter due to lung cancer. Patient states that she is on citalopram at home but only uses half of her current dosage. I offered to place the patient on something for anxiety as needed and the patient agreed that she would take something on an as-needed basis. Patient is currently only on 1 L of oxygen via nasal cannula, I have instructed nursing to place her on 2 L if she has any oxygen requirement at all. Objective Data Objective Data Vital Signs: Vital Signs Temp Pulse Resp BP Pulse Ox 98.5 F 69 16 152/68 H 93 05/01/21 15:22 05/01/21 15:22 05/01/21 15:22 05/01/21 15:22 05/01/21 15:22 Oxygen Flow Rate (L/min) 1 Oxygen Delivery Method Non-Rebreather @ 15L/min Weight: 48.137 kg Body Mass Index (BMI) 22.1 Intake & Output: Intake and Output for Last 24 Hours 04/29/21 04/30/21 05/01/21 23:59 23:59 23:59 Intake Total 600.25 / 600.25 291.25 / 291.25 Balance 600.25 / 600.25 291.25 / 291.25 Lab / Micro Data Result Diagrams: 05/01/21 06:25 05/01/21 06:25 Labs: Laboratory Results - last 24 hr 04/30/21 22:03: POC Glucose 467 H* 04/30/21 22:34: Glucose 559 H* 05/01/21 03:32: POC Glucose 347 H 05/01/21 06:16: POC Glucose 180 H 05/01/21 06:25: WBC 8.7, RBC 4.28, Hgb 12.5, Hct 37.9, MCV 88.6, MCH 29.2, MCHC 33.0, RDW Std Deviation 40.7, RDW Coeff of Yaneli 12.6, Plt Count 182, MPV 11.9 05/01/21 06:25: Sodium 136, Potassium 4.5, Chloride 100, Carbon Dioxide 28.0, Anion Gap 8, BUN 30 H, Creatinine 1.09 H, Estim Creat Clear Calc 28.15, Est GFR (MDRD) Af Amer 61, Est GFR (MDRD) Non-Af 51 L, BUN/Creatinine Ratio 27.5 H, Glucose 179 H, Calcium 9.3, Phosphorus 2.8, Magnesium 1.2 L, Total Bilirubin 0.40, AST 21, ALT 22, Alkaline Phosphatase 71, Total Protein 7.6, Albumin 3.2, Globulin 4.4 H, Albumin/Globulin Ratio 0.7 L 05/01/21 08:56: POC Glucose 160 H 05/01/21 12:14: POC Glucose 140 H 05/01/21 16:57: POC Glucose 330 H Physical Exam Const alert, oriented x3 and no apparent distress Constitutional Narrative: Patient appears her stated age, she is tearful at the time of my examination. General Appearance: cooperative, well kempt and well developed Orientation / Consciousness: awake, oriented to person, oriented to place and oriented to time HEENT normocephalic, head/scalp atraumatic and moist oral mucous membranes Head and Scalp: normocephalic Eyes PERRL, EOMs intact bilaterally and conjunctivae normal Neck nuchal rigidity, supple, no JVD, thyroid normal and no carotid bruits General: trachea midline Resp normal respiratory effort, no retractions, no use of accessory muscles and clear to auscultation bilaterally Auscultation: Negative for rales, rhonchi or wheezes Cardio regular rate, regular rhythm, S1 normal heart sound, S2 normal heart sound, no murmurs, no rub and no gallops GI normal to inspection, nondistended, normoactive bowel sounds, soft to palpation, non-tender and non-distended Extremity no clubbing, cyanosis or edema Skin no rashes or lesions noted General Skin Exam: no breakdown Neuro oriented x3, CN's II-XII intact bilaterally, no focal motor deficits and no sensory deficits noted Sensorium / Orientation: awake and alert Speech: speech normal Psych thought process normal Mood & Affect: anxious Assessment & Plan Assessment/Plan (1) COVID-19: PLAN: 1. COVID-19 pneumonia-patient remains on remdesivir and dexamethasone at this time #2 acute hypoxic respiratory failure-patient is on low-flow oxygen via nasal cannula, pulse ox will be monitored #3 chronic anxiety/depression-patient will remain on citalopram which she takes at home, I have added Valium 2 mg 4 times a day as needed for anxiety. I do not feel that this will interfere with her respiratory status. #4 type 2 diabetes-blood sugars will be monitored, sliding scale insulin will be administered #5 essential hypertension #6 hyperlipidemia #7 coronary artery disease #8 generalized debility secondary to multiple medical issues-PT and OT are seeing patient Charges/Coding Visit Charges Inpatient E&M: 96249 Subs Hosp L2
[2021-05-01] MEDS: 0.9% Saline Lock 10 ML Syringe IV (22:04)
[2021-05-01] MEDS: Atorvastatin Calcium 20 MG Tablet PO (22:12)
[2021-05-01 22:55] LABS: Bedside Glucose 308 mg/dL (70-110)
[2021-05-02] VITALS (11 sets, daily range): BP systolic 96–151; BP diastolic 58–76; PULSE 46–68; RESP 16–18; TEMP 36.5–36.8; O2SAT 92–95
[2021-05-02] MEDS: Menthol/Lanolin/Calamine/Znox 113 GM Tube 1 APPLIC TOPICAL ×3 (03:35→21:51)
[2021-05-02 05:46] LABS: Bedside Glucose 72 mg/dL (70-110)
[2021-05-02 07:36] LABS: Hemoglobin 12.8 g/dL (12.0-15.0); Mean Corp Hgb Conc 33.7 g/dL (32-36); Mean Corpuscular Hgb 29.2 pg (27.0-32.0); Mean Corpuscular Volume 86.8 fL (81-99); Mean Platelet Vol. 12.2 fl (6.2-12.0); Platelet Count 219 K/mm3 (150-450); RBC Distribution Width CV 12.6 % (11.6-14.6); RBC Distribution Width SD 40.1 fl (35.1-43.9); Red Blood Count 4.38 M/mm3 (4.2-5.4)
[2021-05-02 07:50] LABS: Bedside Glucose 168 mg/dL (70-110)
[2021-05-02 08:12] LABS: ALB/GLOB Ratio 0.8 RATIO (0.9-2.4); AST(SGOT) 32 U/L (15-37); Alanine Aminotransfer ALT/SGPT 24 U/L (13-56); Alkaline Phosphatase 66 U/L (45-117); Anion Gap 8 (5-15); BUN 29 mg/dL (7-18); BUN/Creat Ratio 33.1 RATIO (10-20); Calcium,Total 8.7 mg/dL (8.5-10.1); Chloride 103 mmol/L (98-107); Creatinine, Serum 0.88 mg/dL (0.55-1.02); EST Glomerular Filtration Rate 65 mL/min (>60); Est Glom Filt Rate - Afr Amer 79 mL/min (>60); Estimated Creatinine Clearance 34.87 ml/min; Globulin 3.8 g/dL (2.2-4.2); Glucose 173 mg/dL (74-106); Potassium 4.2 mmol/L (3.5-5.1); Protein, Total 6.8 g/dL (6.4-8.2); Sodium Level 138 mmol/L (136-145)
[2021-05-02] MEDS: Insulin Lispro 100 UNIT/ML INSULN.PEN 8 UNIT SC ×3 (08:41→16:51)
[2021-05-02] MEDS: Insulin Lispro 100 UNIT/ML INSULN.PEN SC ×3 (08:42→21:58)
[2021-05-02] MEDS: Citalopram 10 MG Tablet PO (10:15)
[2021-05-02] MEDS: Losartan Potassium 50 MG Tablet PO ×2 (10:16→21:52)
[2021-05-02] MEDS: dexAMETHasone 2 MG TABLET 6 MG PO (10:17)
[2021-05-02] MEDS: Aspirin E.C. 81 MG Tablet PO (10:18)
[2021-05-02] MEDS: Isosorbide Mononitrate 30 MG Tablet 15 MG PO (10:18)
[2021-05-02] MEDS: Enoxaparin 30 MG/0.3 ML Syringe SC ×2 (10:19→21:51)
[2021-05-02] MEDS: Leflunomide 10 MG TABLET PO (10:19)
[2021-05-02] MEDS: Multivitamins,Therapeutic Tablet 1 TABLET PO (10:19)
[2021-05-02] MEDS: Pantoprazole Sodium 40 MG Tablet PO (10:20)
[2021-05-02] MEDS: amLODIPine 2.5 MG Tablet PO (10:20)
[2021-05-02] MEDS: Metoprolol(XL)Succ 25 MG Tablet 12.5 MG PO ×2 (10:20→21:52)
[2021-05-02] MEDS: Acetaminophen 325 MG Tablet 650 MG PO (12:35)
[2021-05-02 16:46] LABS: Bedside Glucose 140 mg/dL (70-110)
[2021-05-02] MEDS: diazePAM 2 MG Tablet PO (16:52)
[2021-05-02 17:10] LABS: Bedside Glucose 194 mg/dL (70-110)
--- NOTE | 2021-05-02 18:02 | PCM.PN.HOSP ---
Subjective Subjective Patient was seen and examined today, she states that she has been more short of breath today than yesterday-I pointed out to the patient that she is currently on room air and that she does not require oxygen. Patient appears anxious again today, I must not have ordered the patient Valium that I talked to her about yesterday, I have put the order in today for her to have low-dose Valium as needed. Patient states that she is weak, she does not feel that she can go home by herself, she states that she feels her daughter might be able to help her at her home. Objective Data Objective Data Vital Signs: Vital Signs Temp Pulse Resp BP Pulse Ox 98.1 F 68 18 151/59 H 93 05/02/21 15:14 05/02/21 15:14 05/02/21 15:14 05/02/21 15:14 05/02/21 15:14 Oxygen Flow Rate (L/min) 2 Oxygen Delivery Method Room Air Weight: 48.137 kg Body Mass Index (BMI) 22.1 Intake & Output: Intake and Output for Last 24 Hours 04/30/21 05/01/21 05/02/21 23:59 23:59 23:59 Intake Total 600.25 / 600.25 291.25 / 291.25 250 / 250 Balance 600.25 / 600.25 291.25 / 291.25 250 / 250 Lab / Micro Data Result Diagrams: 05/02/21 07:10 05/02/21 07:10 Labs: Laboratory Results - last 24 hr 05/01/21 21:38: POC Glucose 308 H 05/02/21 03:25: POC Glucose 72 05/02/21 07:10: WBC 12.0 H, RBC 4.38, Hgb 12.8, Hct 38.0, MCV 86.8, MCH 29.2, MCHC 33.7, RDW Std Deviation 40.1, RDW Coeff of Yaneli 12.6, Plt Count 219, MPV 12.2 H 05/02/21 07:10: Sodium 138, Potassium 4.2, Chloride 103, Carbon Dioxide 27.0, Anion Gap 8, BUN 29 H, Creatinine 0.88, Estim Creat Clear Calc 34.87, Est GFR (MDRD) Af Amer 79, Est GFR (MDRD) Non-Af 65, BUN/Creatinine Ratio 33.1 H, Glucose 173 H, Calcium 8.7, Total Bilirubin 0.40, AST 32, ALT 24, Alkaline Phosphatase 66, Total Protein 6.8, Albumin 3.0 L, Globulin 3.8, Albumin/Globulin Ratio 0.8 L 05/02/21 07:44: POC Glucose 168 H 05/02/21 12:26: POC Glucose 140 H 05/02/21 16:49: POC Glucose 194 H Micro: Microbiology 05/01/21 18:10 Sputum, Expectorated/Coughed Gram Stain - Final Physical Exam Const alert, oriented x3, no apparent distress and healthy appearing General Appearance: cooperative, well kempt and well developed Orientation / Consciousness: awake, oriented to person, oriented to place and oriented to time HEENT normocephalic and moist oral mucous membranes Eyes PERRL, EOMs intact bilaterally and conjunctivae normal Neck nuchal rigidity, supple, no JVD and thyroid normal General: trachea midline Resp normal respiratory effort and clear to auscultation bilaterally Auscultation: Negative for rales, rhonchi or wheezes Cardio regular rate, regular rhythm, no murmurs, no rub and no gallops GI normal to inspection, nondistended, normoactive bowel sounds, soft to palpation, non-tender and non-distended Extremity no clubbing, cyanosis or edema Skin no rashes or lesions noted General Skin Exam: no breakdown Neuro oriented x3, CN's II-XII intact bilaterally, no focal motor deficits and no sensory deficits noted Sensorium / Orientation: awake and alert Speech: speech normal Psych thought process normal Mood & Affect: depressed Assessment & Plan Assessment/Plan (1) Type 2 diabetes mellitus, with long-term current use of insulin: QUALIFIERS: Diabetes mellitus complication status: with unspecified complications Qualified Code(s): E11.8 - Type 2 diabetes mellitus with unspecified complications; 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 COVID-19 pneumonia-patient remains on remdesivir and dexamethasone at this time #2 acute hypoxic respiratory failure-patient is now currently on room air #3 chronic anxiety/depression-patient will remain on citalopram which she takes at home, I have added Valium 2 mg 4 times a day as needed for anxiety. I do not feel that this will interfere with her respiratory status. #4 type 2 diabetes-blood sugars will be monitored, sliding scale insulin will be administered #5 essential hypertension #6 hyperlipidemia #7 coronary artery disease #8 generalized debility secondary to multiple medical issues-PT and OT are seeing patient Charges/Coding Visit Charges Inpatient E&M: 42312 Subs Hosp L2
[2021-05-02] MEDS: Atorvastatin Calcium 20 MG Tablet PO (21:52)
[2021-05-02] MEDS: 0.9% Saline Lock 10 ML Syringe IV (22:13)
[2021-05-02 23:36] LABS: Bedside Glucose 380 mg/dL (70-110)
[2021-05-03 04:44] VITALS: BP 136/91; PULSE 44; RESP 18; TEMP 36.3; O2SAT 92
[2021-05-03] MEDS: Menthol/Lanolin/Calamine/Znox 113 GM Tube 1 APPLIC TOPICAL (04:48)
[2021-05-03 07:45] LABS: Hematocrit 37.6 % (37-47); Hemoglobin 12.5 g/dL (12.0-15.0); Mean Corp Hgb Conc 33.2 g/dL (32-36); Mean Corpuscular Hgb 29.2 pg (27.0-32.0); Mean Corpuscular Volume 87.9 fL (81-99); Mean Platelet Vol. 11.9 fl (6.2-12.0); Platelet Count 217 K/mm3 (150-450); RBC Distribution Width CV 12.7 % (11.6-14.6); RBC Distribution Width SD 40.9 fl (35.1-43.9); Red Blood Count 4.28 M/mm3 (4.2-5.4); White Blood Count 10.5 K/mm3 (4.4-11.0)
[2021-05-03 08:05] VITALS: BP 170/57; PULSE 51; RESP 18; TEMP 37; O2SAT 92
[2021-05-03] MEDS: dexAMETHasone 2 MG TABLET 6 MG PO (08:10)
[2021-05-03 08:11] VITALS: BP 170/57; PULSE 51
[2021-05-03] MEDS: Metoprolol(XL)Succ 25 MG Tablet 12.5 MG PO (08:11)
[2021-05-03] MEDS: Leflunomide 10 MG TABLET PO (08:11)
[2021-05-03] MEDS: Citalopram 10 MG Tablet PO (08:11)
[2021-05-03] MEDS: Multivitamins,Therapeutic Tablet 1 TABLET PO (08:12)
[2021-05-03] MEDS: Pantoprazole Sodium 40 MG Tablet PO (08:12)
[2021-05-03] MEDS: Losartan Potassium 50 MG Tablet PO (08:12)
[2021-05-03] MEDS: Isosorbide Mononitrate 30 MG Tablet 15 MG PO (08:12)
[2021-05-03] MEDS: Enoxaparin 30 MG/0.3 ML Syringe SC (08:13)
[2021-05-03] MEDS: Aspirin E.C. 81 MG Tablet PO (08:13)
[2021-05-03] MEDS: amLODIPine 2.5 MG Tablet PO (08:14)
[2021-05-03 08:16] LABS: ALB/GLOB Ratio 0.7 RATIO (0.9-2.4); AST(SGOT) 37 U/L (15-37); Alanine Aminotransfer ALT/SGPT 29 U/L (13-56); Albumin, Serum 2.8 g/dL (3.2-5.0); Alkaline Phosphatase 62 U/L (45-117); Anion Gap 4 (5-15); BUN 34 mg/dL (7-18); BUN/Creat Ratio 39.9 RATIO (10-20); Chloride 105 mmol/L (98-107); Creatinine, Serum 0.85 mg/dL (0.55-1.02); EST Glomerular Filtration Rate 67 mL/min (>60); Est Glom Filt Rate - Afr Amer 81 mL/min (>60); Glucose 92 mg/dL (74-106); Potassium 4.2 mmol/L (3.5-5.1); Protein, Total 6.8 g/dL (6.4-8.2); Sodium Level 140 mmol/L (136-145)
[2021-05-03] MEDS: Insulin Lispro 100 UNIT/ML INSULN.PEN 8 UNIT SC ×2 (09:04→12:00)
[2021-05-03 10:16] LABS: Magnesium 1.2 mg/dL (1.6-2.6); Phosphorus 2.4 mg/dL (2.5-4.9)
--- NOTE | 2021-05-03 10:39 | PCM.DC ---
Discharge Instructions Diet Discharge Diet: 2000 mg Sodium Diet Activity Discharge Activity: May Not Drive Weight Bearing Status: Weight bearing as tolerated Follow Up Care Test Results: Test results from this visit will be discussed in further detail at your follow-up appointment, if applicable. Discharge Plan Admission Admit Date/Time: 04/30/21 15:58 Attending Provider: Itz Mazariegos Primary Care Provider: Zulma Corral Instructions Additional Instructions / Restrictions: Advise COVID-19 booster dose after 1-2 week. Self quarantine for 1 more week. Patient is ambulatory in home and in the community and requires home oxygen with portability during exertion or walking. Discharge Orders/Prescriptions Prescriptions: New dexamethasone 6 mg tablet 6 mg PO DAILY Qty: 7 RF: 0 Eliquis 2.5 mg tablet 2.5 mg PO BID Qty: 30 RF: 0 Mucinex 1,200 mg tablet extended release 12hr 1,200 mg PO BID Qty: 14 RF: 0 Continued pantoprazole 40 mg tablet,delayed release (DR/EC) 40 mg PO QDAY RF: 0 multivitamin tablet 1 tab PO QDAY RF: 0 metoprolol succinate 25 mg tablet extended release 24 hr 12.5 mg PO BID RF: 0 aspirin 81 mg tablet,delayed release (DR/EC) 81 mg PO DAILY RF: 0 leflunomide 10 MG tablet 10 mg PO DAILY RF: 0 tramadol 50 MG tablet 50 mg PO BID PRN PRN (Reason: Pain 1-10 Or Fever) RF: 0 citalopram 20 MG tablet 10 mg PO DAILY RF: 0 simvastatin 40 mg tablet 40 mg PO QHS RF: 0 albuterol sulfate 1 INHALER inhaler 1 - 2 puff INHALATION Q6H PRN PRN (Reason: Asthma) RF: 0 isosorbide mononitrate 30 mg tablet extended release 24 hr 15 mg PO DAILY Qty: 45 RF: 3 Changed amlodipine 2.5 mg tablet 5 mg PO DAILY Qty: 90 RF: 3 losartan 100 mg tablet 100 mg PO DAILY Qty: 0 RF: 0 insulin aspart U-100 100 UNITS/ML insulin pen 8 unit SC TID Qty: 0 RF: 0 insulin detemir U-100 100 UNIT/ML insulin pen 15 unit SQ BID Qty: 0 RF: 0 Referrals / Follow Up: Zulma Corral MD [Primary Care Provider] - Within 1 Week Disposition Disposition (needs filled in before D/C Order can be placed): Home Health Service
--- NOTE | 2021-05-03 10:47 | CASEMGMT ---
Addendum entered by Leanne Leong 05/03/21 13:19: Pt qualifies for home O2. Unable to reach [facility] tc to [facility], spoke with Halley. Referral faxed for O2 and she is aware of referral. Original Note: Received confirmation from Bhavya at [facility] who states they are able to accept pt. Plan for pt to be dc'd home this date. She is aware.
--- NOTE | 2021-05-03 10:50 | PCM.DC.SUM ---
Providers Date of Admission: 04/30/21 Primary Care Physician: Dr. 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 (2) COVID-19: Status: Acute Code(s): U07.1 - COVID-19 Medications at Discharge Home Medications multivitamin 1 tab PO QDAY 05/30/17 pantoprazole 40 mg tablet,delayed release 40 mg PO QDAY 05/30/17 metoprolol succinate 25 mg tablet,extended release 24 hr 12.5 mg PO BID tab 01/11/18 citalopram 10 mg PO DAILY 04/28/20 leflunomide 10 mg PO DAILY 04/28/20 tramadol 50 mg PO BID PRN PRN 04/28/20 albuterol sulfate 1 - 2 puff INHALATION Q6H PRN PRN 05/28/20 isosorbide mononitrate 30 mg tablet,extended release 24 hr 15 mg PO DAILY #45 tab 06/08/20 aspirin 81 mg tablet,delayed release 81 mg PO DAILY 06/17/20 simvastatin 40 mg tablet 40 mg PO QHS tab 04/07/21 amlodipine 5 mg PO DAILY #90 tab 05/03/21 apixaban [Eliquis] 2.5 mg PO BID #30 tab 05/03/21 dexamethasone 6 mg PO DAILY #7 tab 05/03/21 guaifenesin [Mucinex] 1,200 mg PO BID #14 tab 05/03/21 insulin aspart U-100 8 unit SC TID #0 ml 05/03/21 insulin detemir U-100 15 unit SQ BID #0 ml 05/03/21 losartan 100 mg PO DAILY #0 tab 05/03/21 Hospital Course Summary of Care Provided Hospital Course: This is 85-year-old female with history of asthma was admitted on [facility] with 5 days of symptoms mainly shortness of breath, mild cough, loss of taste and appetite since . she is vaccinated for Covid but had not had booster. She has started on dexamethasone and remdesivir. She is also on low-dose Lovenox, Mucinex, incentive spirometry and Pep. Her symptoms improved and she is not hypoxic at rest. Advised to continue Pap and incentive spirometry and spent good time in teaching medications, incentive spirometry and follow-up with PCP. Home qualification oxygen ordered. Prescription given for dexamethasone complete total of 10 days, Mucinex and Eliquis 2.5 mg daily for 14 days. Discharge medication reconciliation done. Discharge follow-up instructions completed. Discharge process discussed with the patient and all questions were answered to patient's satisfaction. Blood pressure is elevated therefore losartan increased to 100 mg daily and amlodipine increased to 5 mg daily. Blood sugar elevated mainly due to Decadron. She has history of diabetes mellitus type 2. Levemir dose and insulin aspart dose increased. Total time spent, exact 35 minutes on discharge meds reconciliation, examination, coordination of care with nurses and ancillary staff, review of imaging and blood test and discussion with the patient on follow-up instructions Physical Exam Narrative Seen and examined. Patient gets short of breath mainly on exertion and oxygen dropped to 88% on room air. At rest, she does not have shortness of breath, chest congestion and no hypoxia. Has history of asthma since young days. Physical exam General: Alert, Oriented x3, Cooperative HEENT: Atraumatic, PERRLA, EOMI, Normocephalic Oral: No Gingival or Mucosal Lesions/ Ulcerations Neck: Supple, No JVD, Negative Carotid Bruits Lungs: Air entry diminished in bilateral lung bases. No crepitation/rhonchi Cardiovascular: Regular rate, Regular Rhythm, Normal S1, Normal S2, No murmurs Abdomen: Bowel Sounds Present, Soft, Non Tender, Non-Distended : No renal angle tenderness. No suprapubic tenderness. Extremities: No edema, Capillary Refill Less than 3 Seconds Skin: No rashes, No breakdown Musculoskeletal: Mild weakness, chronic on lower extremity right more than left. Uses wheeled walker. No Tenderness to Palpation of Joints or Extremities Neurological: Cranial nerves II-XII grossly intact, DTR 2+/4 and Symmetrical Psych/Mental Status: Normal Affect, Appropriate. Weight / BMI Weight Weight: 106 lb 2 oz Body Mass Index (BMI) 22.1 ABG / Lab / Microbiology Data Result Diagrams: 05/03/21 07:23 05/03/21 07:23 Laboratory: Laboratory Results - last 24 hr 05/02/21 12:26: POC Glucose 140 H 05/02/21 16:49: POC Glucose 194 H 05/02/21 21:48: POC Glucose 380 H 05/03/21 07:23: WBC 10.5, RBC 4.28, Hgb 12.5, Hct 37.6, MCV 87.9, MCH 29.2, MCHC 33.2, RDW Std Deviation 40.9, RDW Coeff of Yaneli 12.7, Plt Count 217, MPV 11.9 05/03/21 07:23: Sodium 140, Potassium 4.2, Chloride 105, Carbon Dioxide 31.0, Anion Gap 4 L, BUN 34 H, Creatinine 0.85, Estim Creat Clear Calc 36.10, Est GFR (MDRD) Af Amer 81, Est GFR (MDRD) Non-Af 67, BUN/Creatinine Ratio 39.9 H, Glucose 92, Calcium 9.0, Total Bilirubin 0.20, AST 37, ALT 29, Alkaline Phosphatase 62, Total Protein 6.8, Albumin 2.8 L, Globulin 4.0, Albumin/Globulin Ratio 0.7 L 05/03/21 07:23: Phosphorus 2.4 L, Magnesium 1.2 L Microbiology: Microbiology 05/01/21 18:10 Sputum, Expectorated/Coughed Gram Stain - Final D/C Instructions Discharge Diet: 2000 mg Sodium Diet Weight Bearing Status: Weight bearing as tolerated Meaningful Use Info Meaningful Use Diagnoses (Choose all that apply): None applicable Discharge Plan Admission Admit Date/Time: 04/30/21 15:58 Attending Provider: Itz Mazariegos Primary Care Provider: Zulma Corral Instructions Additional Instructions / Restrictions: Advise COVID-19 booster dose after 1-2 week. Self quarantine for 1 more week. Patient is ambulatory in home and in the community and requires home oxygen with portability during exertion or walking. Discharge Orders/Prescriptions Prescriptions: New dexamethasone 6 mg tablet 6 mg PO DAILY Qty: 7 RF: 0 Eliquis 2.5 mg tablet 2.5 mg PO BID Qty: 30 RF: 0 Mucinex 1,200 mg tablet extended release 12hr 1,200 mg PO BID Qty: 14 RF: 0 Continued pantoprazole 40 mg tablet,delayed release (DR/EC) 40 mg PO QDAY RF: 0 multivitamin tablet 1 tab PO QDAY RF: 0 metoprolol succinate 25 mg tablet extended release 24 hr 12.5 mg PO BID RF: 0 aspirin 81 mg tablet,delayed release (DR/EC) 81 mg PO DAILY RF: 0 leflunomide 10 MG tablet 10 mg PO DAILY RF: 0 tramadol 50 MG tablet 50 mg PO BID PRN PRN (Reason: Pain 1-10 Or Fever) RF: 0 citalopram 20 MG tablet 10 mg PO DAILY RF: 0 simvastatin 40 mg tablet 40 mg PO QHS RF: 0 albuterol sulfate 1 INHALER inhaler 1 - 2 puff INHALATION Q6H PRN PRN (Reason: Asthma) RF: 0 isosorbide mononitrate 30 mg tablet extended release 24 hr 15 mg PO DAILY Qty: 45 RF: 3 Changed amlodipine 2.5 mg tablet 5 mg PO DAILY Qty: 90 RF: 3 losartan 100 mg tablet 100 mg PO DAILY Qty: 0 RF: 0 insulin aspart U-100 100 UNITS/ML insulin pen 8 unit SC TID Qty: 0 RF: 0 insulin detemir U-100 100 UNIT/ML insulin pen 15 unit SQ BID Qty: 0 RF: 0 Referrals / Follow Up: Zulma Corral MD [Primary Care Provider] - Within 1 Week Disposition Disposition (needs filled in before D/C Order can be placed): Home Health Service Charges/Coding Visit Charges Inpatient E&M: 22159 Disch Hosp
--- NOTE | 2021-05-03 11:47 | PHA.DC.MC ---
Addendum entered and electronically signed by Clare Moreira 05/03/21 11:49: Patient counseled via telephone due to COVID precautions. Original Note: Pharmacy Service has performed discharge medication reconciliation and counseling for this patient. 1. DEXAMETHASONE 6MG PO DAILY X 7 DAYS 2. ELIQUIS 2.5MG PO BID X 15 DAYS 3. MUCINEX 1200MG PO BID X 7 DAYS The patient's discharge medication list was reviewed for discrepancies and discrepancies were resolved. Home Medications multivitamin 1 tab PO QDAY 05/30/17 pantoprazole 40 mg tablet,delayed release 40 mg PO QDAY 05/30/17 metoprolol succinate 25 mg tablet,extended release 24 hr 12.5 mg PO BID tab 01/11/18 citalopram 10 mg PO DAILY 04/28/20 leflunomide 10 mg PO DAILY 04/28/20 tramadol 50 mg PO BID PRN PRN 04/28/20 albuterol sulfate 1 - 2 puff INHALATION Q6H PRN PRN 05/28/20 isosorbide mononitrate 30 mg tablet,extended release 24 hr 15 mg PO DAILY #45 tab 06/08/20 aspirin 81 mg tablet,delayed release 81 mg PO DAILY 06/17/20 simvastatin 40 mg tablet 40 mg PO QHS tab 04/07/21 amlodipine 5 mg PO DAILY #90 tab 05/03/21 apixaban [Eliquis] 2.5 mg PO BID #30 tab 05/03/21 dexamethasone 6 mg PO DAILY #7 tab 05/03/21 guaifenesin [Mucinex] 1,200 mg PO BID #14 tab 05/03/21 insulin aspart U-100 8 unit SC TID #0 ml 05/03/21 insulin detemir U-100 15 unit SQ BID #0 ml 05/03/21 losartan 100 mg PO DAILY #0 tab 05/03/21 The patient was counseled on the following discharge medications and changes in medications for homegoing were reviewed. The Reason for Use, instructions for use, and potential side effects were reviewed for all new medications. The patient's questions regarding all of their medications were answered. The patient was able to verbally demonstrate an understanding of their discharge medications.
[2021-05-03 11:55] LABS: Bedside Glucose 153 mg/dL (70-110)
[2021-05-03] MEDS: Losartan Potassium 100 MG Tablet PO (11:56)
[2021-05-03] MEDS: hydroCHLOROthiazide 6.25mg TAB 12.5 MG PO (11:56)
[2021-05-03] MEDS: Insulin Lispro 100 UNIT/ML INSULN.PEN SC (11:59)
[2021-05-03 12:19] VITALS: O2SAT 88; O2SAT 90; O2SAT 93; O2SAT 95
[2021-05-03 15:07] VITALS: BP 144/77; PULSE 66; RESP 18; TEMP 36.1; O2SAT 95
== END 2021-05-03 16:44 | disposition home health service (06) | DRG 177 ==
LOC: ED 16:09 → MS3 16:20
PROVIDERS: Internal Medicine; Admitting Provider Internal Medicine; Emergency Provider Student in an Organized Health Care Education/Training Program; PCP Internal Medicine; Visit Provider Internal Medicine
DX: U07.1 COVID-19 (principal); J12.82 Pneumonia due to coronavirus disease 2019; J96.01 Acute respiratory failure with hypoxia; J44.0 Chronic obstructive pulmonary disease with (acute) lower respiratory infection; E87.1 Hypo-osmolality and hyponatremia; I10 Essential (primary) hypertension; E78.00 Pure hypercholesterolemia, unspecified; I25.10 Atherosclerotic heart disease of native coronary artery without angina pectoris; Z95.5 Presence of coronary angioplasty implant and graft; Z86.73 Personal history of transient ischemic attack (TIA), and cerebral infarction without residual deficits; Z87.891 Personal history of nicotine dependence; Z66 Do not resuscitate; E78.5 Hyperlipidemia, unspecified; K21.9 Gastro-esophageal reflux disease without esophagitis; M10.9 Gout, unspecified; F41.9 Anxiety disorder, unspecified; F32.A Depression, unspecified; E11.9 Type 2 diabetes mellitus without complications; Z79.4 Long term (current) use of insulin
CPT/HCPCS: 36415; 71045; 71275; 80048; 80053; 82947; 82962; 83735; 84100; 84484; 85025; 85027; 87070; 87205; 93005; 94667; 94668; 99251; 99285; J7050; Q9967; A4216; G0463

== ENCOUNTER 2021-05-05 12:51 | Inpatient (IN) | payer MEDICARE, OTHER, SELFPAY ==
[2021-05-05] VITALS (14 sets, daily range): BP systolic 116–144; BP diastolic 50–66; PULSE 59–76; RESP 15–25; TEMP 36.4–37; O2SAT 89–94; BMI 23.0; BMI 20.9
--- NOTE | 2021-05-05 13:30 | EKG12_ITS ---
Test Reason : SOB Blood Pressure : / mmHG Vent. Rate : 070 BPM Atrial Rate : 070 BPM P-R Int : 146 ms QRS Dur : 068 ms QT Int : 368 ms P-R-T Axes : 249 -13 120 degrees QTc Int : 397 ms Unusual P axis, possible ectopic atrial rhythm ST & T wave abnormality, consider anterolateral ischemia Abnormal ECG Confirmed by SYLVIA ALLRED, AURORA ([id number]), acquisition editor ZEESHAN THAKKAR ([id number]) on 05/07/2021 12:46:04 PM Referred By: WICHO/EMMY Confirmed By:OLIVERIO WARD MD
--- NOTE | 2021-05-05 13:32 | EDS_ITS ---
HPI History of Present Illness Chief Complaint: Shortness of Breath Informant: patient Onset/Context/Timing Onset: Days Context: gradual Timing: Continuous Quality: Positive for Dyspnea on exertion and Orthopnea Current Severity: Moderate Maximum Severity: Moderate Associated Symptoms cough Chest Pain: Positive for None Narrative Narrative: 85-year-old female history of diabetes, CAD, asthma and currently on Eliquis. Patient was recently admitted to the hospital for Covid and falls and she has 2 rib fractures on the left. States she is day 13 of Covid. She was vaccinated with [place] no x2. She is on home oxygen but states in spite of that she is feels like she still getting more more short of breath. She was just in the hospital admitted on Monday and discharged on Monday. States she is feeling worse. She has never had a DVT or PE. PE Risk Factors: Positive for Cancer and Recent immobilization; Negative for OCP + Smoking + > 35, Prior DVT or PE and Recent surgery Prior similar symptoms: Yes Recent Illness/Hospitalization: Yes PFSH PFS Medical History Abnormal stress test Arteriovenous fistula, acquired, of heart Asthma Atherosclerosis of [place] coronary artery of [place] heart without angina pectoris Bilateral carotid artery stenosis Cerebral artery occlusion Chest pain COPD (chronic obstructive pulmonary disease) Coronary artery anomaly Diabetes Epigastric pain Essential (primary) hypertension Former smoker GERD (gastroesophageal reflux disease) Presence of stent in coronary artery (~02/27/18) Pure hypercholesterolemia Sleep apnea Spinal stenosis TIA (transient ischemic attack) Home Medications multivitamin 1 tab PO QDAY 05/30/17 [History Last Taken 04/28/20] pantoprazole 40 mg tablet,delayed release 40 mg PO QDAY 05/30/17 [History Last Taken 04/28/20] metoprolol succinate 25 mg tablet,extended release 24 hr 12.5 mg PO BID tab 01/11/18 [History Last Taken 04/28/20] citalopram 10 mg PO DAILY 04/28/20 [History Last Taken 04/28/20] leflunomide 10 mg PO DAILY 04/28/20 [History Last Taken 04/28/20] tramadol 50 mg PO BID PRN PRN 04/28/20 [History Last Taken 04/28/20] albuterol sulfate 1 - 2 puff INHALATION Q6H PRN PRN 05/28/20 [History Last Taken Unknown] isosorbide mononitrate 30 mg tablet,extended release 24 hr 15 mg PO DAILY #45 tab 06/08/20 [Rx Last Taken Unknown] aspirin 81 mg tablet,delayed release 81 mg PO DAILY 06/17/20 [History Last Taken Unknown] simvastatin 40 mg tablet 40 mg PO QHS tab 04/07/21 [History Last Taken Unknown] amlodipine 5 mg PO DAILY #90 tab 05/03/21 [Rx Last Taken Unknown] apixaban [Eliquis] 2.5 mg PO BID #30 tab 05/03/21 [Rx Last Taken Unknown] dexamethasone 6 mg PO DAILY #7 tab 05/03/21 [Rx Last Taken Unknown] guaifenesin [Mucinex] 1,200 mg PO BID #14 tab 05/03/21 [Rx Last Taken Unknown] insulin aspart U-100 8 unit SC TID #0 ml 05/03/21 [Rx Last Taken 04/28/20] insulin detemir U-100 15 unit SQ BID #0 ml 05/03/21 [Rx Last Taken 04/28/20] losartan 100 mg PO DAILY #0 tab 05/03/21 [Rx Last Taken 04/28/20] Allergy/AdvReac Type Severity Reaction Status Date / Time metronidazole [From Flagyl] Allergy Other Verified 05/05/21 12:58 oxycodone HCl Allergy Other Verified 05/05/21 12:58 [From OxyContin] Family History Father CAD (coronary artery disease) Myocardial infarction Mother Cancer Sister Breast cancer Surgical History H/O tubal ligation History of coronary artery stent placement History of cystoscopy (06/03/20) Hx of cardiac cath Presence of coronary angioplasty implant and graft (~02/27/18) S/p bilateral carpal tunnel release Social History Smoking Status: Former smoker how long ago did patient quit smokin years ago second hand exposure: No alcohol intake: never substance use type: does not use caffeine: Yes Type: coffee Number of servings: 2 ROS ROS ED ROS Narrative Dyspnea. Cough. Review of Systems ROS Unobtainable: Denies due to encephalopathy Constitutional Constitutional ED: Denies fever(s) Eyes Eyes: Denies change in vision ENT ENT ED: Denies ear pain Cardiovascular Cardiovascular: Reports chest pain and other Details: Left rib cage pain due to broken ribs. Respiratory/Chest Respiratory/Chest: Reports cough and dyspnea Gastrointestinal Gastrointestinal: Reports diarrhea; Denies abdominal pain, nausea or vomiting Genitourinary Genitourinary ED: Denies dysuria or hematuria Musculoskeletal Musculoskeletal: Denies myalgias Integumentary Denies rash Neurologic Neurologic: Denies headache(s) Psychiatric Psychiatric: Denies depression Endocrine Endocrinology: Denies polyuria Hematologic/Lymphatic Hematologic/Lymphatic: Denies easy bruising Allergic/Immunologic Allergic/Immunologic ED: Denies urticaria EXAM Physical Exam Narrative Exam Narrative: 85-year-old female vital signs on 5 L nasal cannula as she is 91%. She is accelerated respiratory rate. H EENT exam unremarkable. Neck nontender. Lungs clear to auscultation bilaterally. Labored breathing. Heart regular rhythm rate about 75. Chest wall mild tenderness on the left from recent rib fractures. No crepitance or subcu air. Abdomen soft nontender normal bowel sounds no peritoneal signs. Patient moving all 4 extremities. Ca lves nontender without edema. Back nontender. Neurologically she is awake and alert with no focal motor deficits. Const Vital Signs: 05/05/21 12:53 05/05/21 13:18 05/05/21 13:37 Temperature 97.6 F L 97.6 F L Temperature Source Temporal Temporal Pulse Rate 70 76 Respiratory Rate 25 H 25 H Respiratory Effort Short of Breath Respiratory Depth Normal Respiratory Pattern Tachypnea Blood Pressure 122/62 H 122/62 H Blood Pressure Mean 82 82 Pulse Ox 91 94 94 Oxygen Delivery Method Nasal Cannula Nasal Cannula Nasal Cannula Oxygen Flow Rate (L/min) 5 3 5 05/05/21 14:03 Temperature 97.6 F L Temperature Source Temporal Pulse Rate 68 Respiratory Rate 22 H Respiratory Effort Respiratory Depth Respiratory Pattern Blood Pressure 118/62 Blood Pressure Mean 80 Pulse Ox 92 Oxygen Delivery Method Nasal Cannula Oxygen Flow Rate (L/min) 5 Positive well nourished and well developed; Negative for obese, cachectic, contractures or unkempt General Appearance ED: well developed; Negative for unkempt, cachectic, contractures, NAD or pallor Nutritional Appearance: Negative for cachectic or obese HEENT Reports moist mucous membranes atraumatic; Negative for trauma or tenderness Eyes PERRL and EOMs intact bilaterally Neck no lymphadenopathy, supple, no meningeal signs and no JVD General: Negative for tenderness Resp No normal respiratory effort and clear to auscultation bilaterally Resp Narrative: Increased respiratory effort. Auscultation: Negative for rales, rhonchi, wheezes or diminished lung sounds Cardio regular rate, regular rhythm, S1 normal heart sound, S2 normal heart sound and no murmurs GI non-tender, non-distended and no masses Auscultation: normoactive bowel sounds Palpation: soft; Negative for tender, guarding or rebound tenderness present Back/Spine no CVA tenderness and normal to inspection General Back: Negative for CVA tenderness Extremity normal to inspection General Extremety ED: Negative for edema or tenderness General Extremity: Negative for edema Neuro oriented x3 Sensorium / Orientation: alert, oriented to person, oriented to place and oriented to time; Negative for orientation impaired, confused, lethargic or stuporous Motor Exam: strength 5/5 throughout Psych mental status grossly normal Appearance: Negative for unkempt Thought Process: normal thought process Skin no wounds and No skin turgor normal General Skin Exam: Negative for jaundice or pallor Lesions: no lesions Rashes: no rashes MDM MDM MDM Narrative Medical decision making narrative: 85-year-old female Covid day 13 with rib fractures on the left from recent falls. Recent hospitalization. On home O2 but having increasing short of breath in spite of that. Patient be treated with Decadron and being further evaluated. Repeat exam patient is resting comfortably. We tried to turn down her oxygen and she desats into the 80s. I will speak to the hospitalist about admitting her. Lab Data Attestation: I reviewed the patient's lab results. Lab results narrative: CBC shows a white count 18.1. Hemoglobin of 13. No bands. Electrolytes show sodium 132 gap of 5 BUN of 42 and creatinine of 1 consistent with dehydration. Glucose 188. Troponin normal at 10. I also reviewed the patient's old labs. Today she is elevation in her BUN consistent with acute dehydration. She also recently had a CTA about 5 days ago which showed no signs of a pulmonary embolus. She is also on Eliquis so given those 2 factors I do not think she needs to be -. Labs: Laboratory Results - last 24 hr 05/05/21 05/05/21 13:50 13:50 WBC 18.1 H RBC 4.33 Hgb 13.0 Hct 37.4 MCV 86.4 MCH 30.0 MCHC 34.8 RDW Std Deviation 40.2 RDW Coeff of Yaneli 12.8 Plt Count 249 MPV 11.7 Immature Gran % (Auto) 0.700 Neut % (Auto) 84.8 H Lymph % (Auto) 7.5 L [place] % (Auto) 6.3 Eos % (Auto) 0.5 Baso % (Auto) 0.2 Absolute Neuts (auto) 15.4 H Absolute Lymphs (auto) 1.36 Nucleated RBC % 0 Sodium 132 L Potassium 3.9 Chloride 99 Carbon Dioxide 28.0 Anion Gap 5 BUN 42 H Creatinine 1.08 H Estim Creat Clear Calc 29.51 Est GFR (MDRD) Af Amer 62 Est GFR (MDRD) Non-Af 51 L BUN/Creatinine Ratio 38.9 H Glucose 188 H Calcium 9.4 Troponin I High Sens 10 Radiography Chest X-Ray - ED: 1 View, Read by ED Physician, Heart, Lungs, Mediastinum, Bony Structures, Chronic Changes, Right Infiltrate and Left Infiltrate Diagnostic Testing: Clinical Impression(s) from Imaging Studies Chest X-Ray 05/05/21 13:55 IMPRESSION: Hyperinflation. Increased markings at the lung bases suggestive of either linear atelectasis and/or early infiltrates. Electronically Signed: Colin Mae MD at 14:11 EST , Service support , Portable, single view chest x-ray shows either chronic changes or mild linear atelectasis versus Covid infiltrates. It looks more chronic. Interpreted by myself and the radiologist. Rhythm Strip Rhythm Strip: Sinus Rhythm Rate: 70 Ectopy: None EKG Initial EKG: Attestation: I personally reviewed and interpreted this EKG as follows: Interpretation: Sinus Rhythm and No Acute Injury Pattern Comments: Sinus rhythm rate of 70. Inverted patient T waves in leads V2 through V6 which was seen on a prior EKG from April 30. No acute signs of [place]. No specific change. Prior EKG tracings: available for review Prior: Unchanged Discharge Plan Dx/Rx/DC Orders Clinical Impression: COVID-19, Hypoxia, Adult failure to thrive, Acute dehydration, Leukocytosis Disposition Disposition: Acute Care Hospital [facility]
[2021-05-05] MEDS: dexAMETHasone 10 MG/ML Vial IV (13:53)
--- NOTE | 2021-05-05 13:55 | RAD_ITS ---
STUDY: X-RAY CHEST REASON FOR EXAM: Female, 85 years old. Chest pain. Recent fall. TECHNIQUE: Single AP portable view of the chest. COMPARISON: Comparison is made with prior examination dated 04/30/2021. FINDINGS: EKG electrodes are seen. There is hyperinflation of the lungs consistent with chronic obstructive lung disease (COPD). There now is evidence of increased markings at the lung bases suggests over either linear atelectasis and/or early infiltrates. There is no demonstrated pleural abnormality. Normal size heart. Normal mediastinum and jackeline. Normal visualized pulmonary arteries. There is atherosclerotic calcification of the aortic arch with tortuosity. There are diffuse degenerative changes of the visualized thoracic spine. There is degenerative osteoarthritis of the bilateral shoulders. There is no demonstrated abnormality of the visualized soft tissue structures of the upper abdomen. RAD/Chest 1 View (Portable) IMPRESSION: Hyperinflation. Increased markings at the lung bases suggestive of either linear atelectasis and/or early infiltrates. Electronically Signed: Colin Mae MD at 14:11 EST , Service support ,
[2021-05-05 13:59] LABS: Absolute Lymphocyte Count 1.36 X10^3/uL (0.83-4.51); Absolute Neutrophil Count 15.4 X10^3/uL (2.0-7.7); Basophil# 0.04 X10^3/uL; Basophil% 0.2 % (0-1); Eosinophil# 0.09 X10^3/uL; Eosinophils% 0.5 % (0-5); Hematocrit 37.4 % (37-47); Lymphocyte # 1.36 X10^3/ul (0.83-4.51); Lymphocyte % 7.5 % (19-41); Mean Corp Hgb Conc 34.8 g/dL (32-36); Mean Corpuscular Volume 86.4 fL (81-99); Mean Platelet Vol. 11.7 fl (6.2-12.0); Monocyte# 1.15 X10^3/uL; Monocyte% 6.3 % (0-10); NRBC Flagged by Analyzer 0 % (0-5); Neutrophil # 15.35 X10^3/uL (2.7-7.7); Neutrophil % 84.8 % (47-70); Platelet Count 249 K/mm3 (150-450); RBC Distribution Width CV 12.8 % (11.6-14.6); RBC Distribution Width SD 40.2 fl (35.1-43.9); Red Blood Count 4.33 M/mm3 (4.2-5.4); White Blood Count 18.1 K/mm3 (4.4-11.0)
[2021-05-05 14:22] LABS: Anion Gap 5 (5-15); BUN 42 mg/dL (7-18); BUN/Creat Ratio 38.9 RATIO (10-20); Calcium,Total 9.4 mg/dL (8.5-10.1); Chloride 99 mmol/L (98-107); Creatinine, Serum 1.08 mg/dL (0.55-1.02); EST Glomerular Filtration Rate 51 mL/min (>60); Est Glom Filt Rate - Afr Amer 62 mL/min (>60); Estimated Creatinine Clearance 29.51 ml/min; Glucose 188 mg/dL (74-106); Potassium 3.9 mmol/L (3.5-5.1); Sodium Level 132 mmol/L (136-145); Troponin-I HS 10 pg/mL (3.0-54.0)
--- NOTE | 2021-05-05 15:32 | HP.PCM.HOS_ITS ---
HPI - General General Date of Admission: 05/05/21 Date of Service: 05/05/21 Chief Complaint: COVID +, worsening cough, productive, dyspnea, recent falls. HPI Narrative The patient is an 85 y/o F w/ PMHx: Asthma/Chronic COPD, HTN, HLD, Carotid disease, Hx Cerebral artery occlusion, ZULEMA, CAD s/p PCI, Diabetes mellitus type II, Former tobacco use, recently evaluated 04/30/21 with COVID with admission and discharged on 05/03/21 on 2L NC with eliquis for prophylaxis as well as decadron who now re-presents to the [facility] ED on 05/05/21 with history of COVID + status, now on day #13 of symptoms including low-grade temperatures, headaches, nausea with no emesis, mildly loose stools, mild alteration of sense of taste and smell transiently, cough as well as dyspnea and body aches with significantly worsening fatigue, malaise and worsening dyspnea prompting ED evaluation. She does report that the cough has become mildly productive and she has occasional scant green/yellow sputum. Patient is vaccinated against COVID w/ Moderna 2 dose series but has not had her booster. Patient reported initial onset of Covid type symptoms 04/25/2021 work-up in the ED included T 97.6, heart rate 70, BP 122/62, respiratory rate 25, initially 91% on 5 L nasal cannula with recent 05/03/2021 evaluation and discharged on 2 L nasal cannula, CBC with WBC 1 8.1, hemoglobin 13, platelet 249 with left shift, BMP with sodium 132, BUN/creatinine 42/1.08, glucose 188, high-sensitivity cardiac troponin 10, chest x-ray with hyperinflation with increased lung markings at the bases. In the ED patient ministered Decadron 10 mg IV x1. [employer] [employer] Medical History Abnormal stress test Arteriovenous fistula, acquired, of heart Asthma Atherosclerosis of [place] coronary artery of [place] heart without angina pectoris Bilateral carotid artery stenosis Cerebral artery occlusion Chest pain COPD (chronic obstructive pulmonary disease) Coronary artery anomaly Diabetes Epigastric pain Essential (primary) hypertension Former smoker GERD (gastroesophageal reflux disease) Presence of stent in coronary artery (~02/27/18) Pure hypercholesterolemia Sleep apnea Spinal stenosis TIA (transient ischemic attack) Home Medications multivitamin 1 tab PO QDAY 05/30/17 [History Last Taken 04/28/20] pantoprazole 40 mg tablet,delayed release 40 mg PO QDAY 05/30/17 [History Last Taken 04/28/20] metoprolol succinate 25 mg tablet,extended release 24 hr 12.5 mg PO BID tab 01/11/18 [History Last Taken 04/28/20] citalopram 10 mg PO DAILY 04/28/20 [History Last Taken 04/28/20] leflunomide 10 mg PO DAILY 04/28/20 [History Last Taken 04/28/20] tramadol 50 mg PO BID PRN PRN 04/28/20 [History Last Taken 04/28/20] albuterol sulfate 1 - 2 puff INHALATION Q6H PRN PRN 05/28/20 [History Last Taken Unknown] isosorbide mononitrate 30 mg tablet,extended release 24 hr 15 mg PO DAILY #45 tab 06/08/20 [Rx Last Taken Unknown] aspirin 81 mg tablet,delayed release 81 mg PO DAILY 06/17/20 [History Last Taken Unknown] simvastatin 40 mg tablet 40 mg PO QHS tab 04/07/21 [History Last Taken Unknown] amlodipine 5 mg PO DAILY #90 tab 05/03/21 [Rx Last Taken Unknown] apixaban [Eliquis] 2.5 mg PO BID #30 tab 05/03/21 [Rx Last Taken Unknown] dexamethasone 6 mg PO DAILY #7 tab 05/03/21 [Rx Last Taken Unknown] guaifenesin [Mucinex] 1,200 mg PO BID #14 tab 05/03/21 [Rx Last Taken Unknown] insulin aspart U-100 8 unit SC TID #0 ml 05/03/21 [Rx Last Taken 04/28/20] insulin detemir U-100 15 unit SQ BID #0 ml 05/03/21 [Rx Last Taken 04/28/20] losartan 100 mg PO DAILY #0 tab 05/03/21 [Rx Last Taken 04/28/20] Allergy/AdvReac Type Severity Reaction Status Date / Time metronidazole [From Flagyl] Allergy Other Verified 05/05/21 12:58 oxycodone HCl Allergy Other Verified 05/05/21 12:58 [From OxyContin] Family History Father CAD (coronary artery disease) Myocardial infarction Mother Cancer Sister Breast cancer Surgical History H/O tubal ligation History of coronary artery stent placement History of cystoscopy (06/03/20) Hx of cardiac cath Presence of coronary angioplasty implant and graft (~02/27/18) S/p bilateral carpal tunnel release Social History (Updated 05/05/21 @ 16:[address] Joyce Valero MD) household members: none Smoking Status: Former smoker how long ago did patient quit smokin years ago, when smoking 1/4-1/2 ppd maximum. second hand exposure: No alcohol intake: never substance use type: does not use caffeine: Yes Type: coffee Number of servings: 2 ROS ROS Narrative Admission Review of Systems: CONSTITUTIONAL: No weight loss, + fever, chills, weakness or fatigue. HEENT: + Headache. Eyes: No visual loss, blurred vision, double vision or yellow sclerae. Ears, Nose, Throat: No hearing loss, sneezing. SKIN: No rash or itching, lesions, wounds. CARDIOVASCULAR: No chest pain, chest pressure or chest discomfort, palpitations, edema, orthopnea, syncopal events. RESPIRATORY: + shortness of breath, cough, mildly productive sputum, No wheezing, hemoptysis. GASTROINTESTINAL: + anorexia, nausea without vomiting, mildly loose stools/diarrhea, No abdominal pain, melena, BRBPR. GENITOURINARY: No dysuria, frequency, urgency or retention. NEUROLOGICAL: + headache, falls, No dizziness, syncope, paralysis, ataxia, n umbness or tingling in the extremities, focal weakness, change in bowel or bladder control, seizure. MUSCULOSKELETAL: + muscle, back pain, joint pain or stiffness. HEMATOLOGIC: No anemia, bleeding or bruising. LYMPHATICS: No enlarged nodes. No history of splenectomy. PSYCHIATRIC: + history of depression or anxiety. ENDOCRINOLOGIC: No reports of sweating, cold or heat intolerance. No polyuria or polydipsia. ALLERGIES: + history of asthma, hives, eczema or rhinitis. Vital Signs Vital Signs Vital Signs: 05/05/21 12:53 05/05/21 13:18 05/05/21 13:37 Temperature 97.6 F L 97.6 F L Temperature Source Temporal Temporal Pulse Rate 70 76 Respiratory Rate 25 H 25 H Respiratory Effort Short of Breath Respiratory Depth Normal Respiratory Pattern Tachypnea Blood Pressure 122/62 H 122/62 H Blood Pressure Mean 82 82 Pulse Ox 91 94 94 Oxygen Delivery Method Nasal Cannula Nasal Cannula Nasal Cannula Oxygen Flow Rate (L/min) 5 3 5 05/05/21 14:03 Temperature 97.6 F L Temperature Source Temporal Pulse Rate 68 Respiratory Rate 22 H Respiratory Effort Respiratory Depth Respiratory Pattern Blood Pressure 118/62 Blood Pressure Mean 80 Pulse Ox 92 Oxygen Delivery Method Nasal Cannula Oxygen Flow Rate (L/min) 5 Weight Weight: 110 lb 3.698 oz Body Mass Index (BMI) 23.0 Physical Exam Narrative Physical Examination: General: Awake, alert, oriented x 3 and cooperative, seated upright in the ED bed, fatigued and ill-appearing, mildly increased respiratory rate. Skin: Normal color, normal turgor, no icterus, no cyanosis. HEENT: AT/NC, EOMI, PERRLA, moderately dry MM, no carotid bruits or JVD noted. Lungs: Diffusely diminished, greater bases, mildly increased respiratory rate, mildly coarse, coughing elicited with deep inspiratory effort, no evidence of distress, no rales or wheezing. Heart: Regular rate with regular rhythm; no gallop, rub audible. Abdomen: Soft, no obvious TTP, nondistended, distant hyperactive bowel sounds, no HSM. Extremities: No cyanosis, clubbing, or edema. Neurological: Patient awake, alert, oriented as noted, cognitive function intact; pupils equally reactive to light and accommodation, cranial nerves II- XII grossly normal, moving all 4 extremities, no focal deficits, strength severely global decrease secondary to acute presentation. Psychiatric: Affect appears fatigued, ill-appearing, no acute evidence of depressive or anxiety feelings. Results Lab / Micro Data Result Diagrams: 05/05/21 13:50 05/05/21 13:50 Labs: Laboratory Results - last 24 hr 05/05/21 13:50: WBC 18.1 H, RBC 4.33, Hgb 13.0, Hct 37.4, MCV 86.4, MCH 30.0, MCHC 34.8, RDW Std Deviation 40.2, RDW Coeff of Yaneli 12.8, Plt Count 249, MPV 11.7, Immature Gran % (Auto) 0.700, Neut % (Auto) 84.8 H, Lymph % (Auto) 7.5 L, [place] % (Auto) 6.3, Eos % (Auto) 0.5, Baso % (Auto) 0.2, Absolute Neuts (auto) 15.4 H, Absolute Lymphs (auto) 1.36, Nucleated RBC % 0 05/05/21 13:50: Sodium 132 L, Potassium 3.9, Chloride 99, Carbon Dioxide 28.0, Anion Gap 5, BUN 42 H, Creatinine 1.08 H, Estim Creat Clear Calc 29.51, Est GFR (MDRD) Af Amer 62, Est GFR (MDRD) Non-Af 51 L, BUN/Creatinine Ratio 38.9 H, Glucose 188 H, Calcium 9.4, Troponin I High Sens 10 Rhythm Strip Rhythm Strip: Sinus Rhythm Rate: 70 Ectopy: None Radiology Impression Chest X-Ray 05/05/21 13:55 IMPRESSION: Hyperinflation. Increased markings at the lung bases suggestive of either linear atelectasis and/or early infiltrates. Electronically Signed: Colin Mae MD at 14:11 EST , Service support , Assessment & Plan Assessment/Plan (1) Pneumonia due to COVID-19 virus: (2) Hypoxia: PLAN: The patient is an 85 y/o F w/ PMHx: Asthma/Chronic COPD, HTN, HLD, Carotid disease, Hx Cerebral artery occlusion, ZULEMA, CAD s/p PCI, Diabetes mellitus type II, Former tobacco use, recently evaluated 04/30/21 with COVID w ith admission and discharged on 05/03/21 on 2L NC with eliquis for prophylaxis as well as decadron who now re-presents to the [facility] ED on 05/05/21 with history of COVID + status, now on day #13 of symptoms including low-grade temperatures, headaches, nausea with no emesis, mildly loose stools, mild alteration of sense of taste and smell transiently, cough as well as dyspnea and body aches with significantly worsening fatigue, malaise and worsening dyspnea prompting ED evaluation. #1. Acute Hypoxia secondary to Acute Bilateral Pneumonia secondary to Acute Viral Syndrome, COVID-19 with questionable overlapping concurrent bacterial pneumonia: Will admit to the [facility] telemetry, maintain on COVID precautions, will continue 20-day quarantine through 05/15/2021, will maintain on oxygen with wean as tolerated to room air, PRN albuterol, HOB, IS parameters w/ pending sputum cultures, respiratory viral panel and urine antigens, will obtain D-dimer, procalcitonin, CRP, CPK, Ferritin, LDH, hepatic profile and BNP, continue supportive care including q 2 hour turning including prone given no prone bed availability and judicious hydration, closely monitor for worsening status for ARDS and multiorgan failure, will initiate and continue IV decadron x 10 doses, given presentation timeline patient is not a candidate for remdesivir. Will await procalcitonin and if significantly elevated will continue antibiotic therapy for possible overlapping bacterial pneumonia. If respiratory status worsens and patient requires airvo or BIPAP transition will initiate barcitinib regimen additionally with ID involvement. #2. Rheumatoid arthritis: We will continue patient home leflunomide regimen #3. Diabetes mellitus type II: Hold oral home regimen, continue home insulin regimen, ADA diet, accu checks w/ ISS. #4. Hypertension: Continue home regimen including losartan, Norvasc, metoprolol, isosorbide, with hold parameters as needed, PRN hydralazine. #5. Hyperlipidemia: Continue home statin regimen. #6. Carotid disease: We will continue patient anticoagulant, statin therapy, hypertensive and diabetic regimen as noted. #7. CAD: Status post PCI, continue patient anticoagulant, aspirin, statin, metoprolol, losartan regimen. #8. Asthma/chronic COPD: Not on routine inhalers, will continue as needed albuterol, encourage head of bed and I-S usage #9. Former tobacco use: Encourage continued tobacco cessation. #10. Anxiety and depression: We will continue patient home citalopram regimen. #11. GERD: We will continue patient on PPI. #12. ZULEMA: Not using CPAP/BIPAP q HS. #13. DVT Prophylaxis: Will continue recently initiated eliquis regimen. #14. CODE status: Patient GASTON is the patient's daughter who is present and living will is currently in place. Discussed CODE status at length including difference between FULL code, DNR-CCA and DNR-CC status. Following discussions a bout the differences in these status, requested DNR-CCA, no intubation status. Advanced Care Planning Face to Face Time: 16 minutes. Charges/Coding Visit Charges Inpatient E&M: 64548 Init Hosp L3 Procedures Hospitalists Procedures: 54205 Advncd Care Plan 30 Min
--- NOTE | 2021-05-05 15:48 | NURSING ---
103 WHITE COVID, DEHYDRATION, FAILURE TO THRIVE, HYPOXIA, FALLS
[2021-05-05 17:02] LABS: BNP,B-Type NATRIURETIC PEPTIDE 83.6 pg/mL (0-100)
[2021-05-05 17:06] LABS: AST(SGOT) 25 U/L (15-37); Alanine Aminotransfer ALT/SGPT 28 U/L (13-56); Albumin, Serum 2.8 g/dL (3.2-5.0); Alkaline Phosphatase 69 U/L (45-117); Bilirubin, Direct 0.19 mg/dL (0.00-0.30); Ferritin 670 ng/mL (8-252); Globulin 4.2 g/dL (2.2-4.2); LDH 295 U/L (84-246)
[2021-05-05 17:22] LABS: D-Dimer Quantitative (DVT/PE) 1.25 FEU/ug/m (0.27-0.49)
[2021-05-05 17:35] LABS: Procalcitonin 0.16 ng/mL (0.00-0.09)
--- NOTE | 2021-05-05 18:45 | VDLE_ITS ---
Reason For Study: elevated D-dimer RIGHT LEFT CFV, FV, POP V, T/P Trunk, PTV, Peroneal V, CFV, FV, POP V, T/P Trunk, PTV, Peroneal V, and GSV are compressible. and GSV are compressible. Procedure This is a venous duplex using B-mode, color flow and spectral Doppler. Exam performed portable in patient room. The exam was abbreviated due to the COVID 19 protocol. The exam was diagnostic. A preliminary report was called and/or faxed to PCU smelter charger. VL/Venous Duplex US - Piero Extrem Interpretation Summary No evidence for acute deep venous thrombosis bilateral lower extremities with p atent and compressible bilateral great saphenous veins. Abreviated covid 19 protocol Ordering Physician: Joyce Valero Performed By: Buddy Keating RVT
--- NOTE | 2021-05-05 19:40 | PCS.PANDOC ---
PANDEMIC DOCUMENTATION INITIATED: Date: 01/04/2021 Time: 190
[2021-05-05] MEDS: 0.9% Normal Saline 1,000 ML 100 ML IV (20:16)
[2021-05-05] MEDS: Atorvastatin Calcium 20 MG Tablet PO (22:07)
[2021-05-05] MEDS: APIXABAN 2.5 MG TABLET PO (22:07)
[2021-05-05] MEDS: Insulin Lispro 100 UNIT/ML INSULN.PEN SC (22:10)
[2021-05-05] MEDS: Metoprolol(XL)Succ 25 MG Tablet 12.5 MG PO (22:17)
[2021-05-05 23:56] LABS: Bedside Glucose 409 mg/dL (70-110)
[2021-05-06] VITALS (16 sets, daily range): BP systolic 130–157; BP diastolic 59–68; PULSE 44–68; RESP 16–23; TEMP 36.4–36.9; O2SAT 92–94
[2021-05-06 07:32] LABS: Absolute Lymphocyte Count 0.88 X10^3/uL (0.83-4.51); Absolute Neutrophil Count 10.1 X10^3/uL (2.0-7.7); Basophil# 0.03 X10^3/uL; Basophil% 0.3 % (0-1); Eosinophil# 0.01 X10^3/uL; Eosinophils% 0.1 % (0-5); Hematocrit 37.5 % (37-47); Hemoglobin 12.6 g/dL (12.0-15.0); Lymphocyte # 0.88 X10^3/ul (0.83-4.51); Lymphocyte % 7.3 % (19-41); Mean Corp Hgb Conc 33.6 g/dL (32-36); Mean Corpuscular Hgb 29.4 pg (27.0-32.0); Mean Corpuscular Volume 87.6 fL (81-99); Mean Platelet Vol. 11.8 fl (6.2-12.0); Monocyte# 0.77 X10^3/uL; Monocyte% 6.4 % (0-10); NRBC Flagged by Analyzer 0 % (0-5); Neutrophil # 10.14 X10^3/uL (2.7-7.7); Neutrophil % 84.6 % (47-70); Platelet Count 241 K/mm3 (150-450); RBC Distribution Width CV 12.9 % (11.6-14.6); Red Blood Count 4.28 M/mm3 (4.2-5.4)
[2021-05-06 08:04] LABS: ALB/GLOB Ratio 0.6 RATIO (0.9-2.4); AST(SGOT) 18 U/L (15-37); Alanine Aminotransfer ALT/SGPT 26 U/L (13-56); Albumin, Serum 2.5 g/dL (3.2-5.0); Alkaline Phosphatase 65 U/L (45-117); Anion Gap 9 (5-15); BUN 41 mg/dL (7-18); BUN/Creat Ratio 41.9 RATIO (10-20); Calcium,Total 8.6 mg/dL (8.5-10.1); Chloride 101 mmol/L (98-107); Creatinine, Serum 0.98 mg/dL (0.55-1.02); EST Glomerular Filtration Rate 57 mL/min (>60); Est Glom Filt Rate - Afr Amer 69 mL/min (>60); Globulin 4.1 g/dL (2.2-4.2); Glucose 270 mg/dL (74-106); Potassium 4.1 mmol/L (3.5-5.1); Protein, Total 6.6 g/dL (6.4-8.2); Sodium Level 135 mmol/L (136-145)
[2021-05-06] MEDS: Citalopram 10 MG Tablet PO (08:56)
[2021-05-06] MEDS: Multivitamins,Therapeutic Tablet 1 TABLET PO (08:56)
[2021-05-06] MEDS: amLODIPine 5 MG Tablet PO (08:56)
[2021-05-06] MEDS: APIXABAN 2.5 MG TABLET PO ×2 (08:56→22:38)
[2021-05-06] MEDS: Pantoprazole Sodium 40 MG Tablet PO (08:56)
[2021-05-06] MEDS: Isosorbide Mononitrate 30 MG Tablet 15 MG PO (08:56)
[2021-05-06] MEDS: Aspirin E.C. 81 MG Tablet PO (08:56)
[2021-05-06] MEDS: Losartan Potassium 100 MG Tablet PO (08:56)
[2021-05-06] MEDS: Leflunomide 10 MG TABLET PO (08:57)
[2021-05-06] MEDS: dexAMETHasone 10 MG/ML Vial 6 MG IV (08:58)
[2021-05-06] MEDS: Insulin Lispro 100 UNIT/ML INSULN.PEN 8 UNIT SC ×3 (09:03→17:09)
[2021-05-06] MEDS: Insulin Lispro 100 UNIT/ML INSULN.PEN SC ×4 (09:04→22:48)
[2021-05-06 09:15] LABS: Bedside Glucose 234 mg/dL (70-110)
[2021-05-06] MEDS: Acetaminophen 325 MG Tablet 650 MG PO ×2 (10:47→22:52)
[2021-05-06] MEDS: Metoprolol(XL)Succ 25 MG Tablet 12.5 MG PO ×2 (10:48→22:37)
[2021-05-06 12:21] LABS: Bedside Glucose 296 mg/dL (70-110)
--- NOTE | 2021-05-06 14:24 | PN.HOSP_ITS ---
Subjective Subjective Patient seen and examined. She said her shortness of breath is improving. Review of systems is otherwise negative. She is on 10L of oxygen. D dimer is elevated at 1.25. Review of systems is otherwise negative. Objective Data Objective Data Vital Signs: Vital Signs Temp Pulse Resp BP Pulse Ox 97.9 F 65 20 H 130/59 H 93 05/06/21 10:45 05/06/21 10:48 05/06/21 10:45 05/06/21 10:48 05/06/21 10:45 Oxygen Flow Rate (L/min) 12 Oxygen Delivery Method High Flow Weight: 100 lb 5 oz Body Mass Index (BMI) 20.9 Intake & Output: Intake and Output for Last 24 Hours 05/04/21 05/05/21 05/06/21 23:59 23:59 23:59 Intake Total 1480 / 1480 Output Total Balance 1479 / 1479 Medical Nutrition Assessment Dietitian: Malnutrition Criteria Met Start: 05/06/21 13:04 Freq: Status: Active Protocol: Document 05/06/21 13:04 AG (Rec: 05/06/21 13:04 [id number]) Nutrition Malnutrition Evidence of Malnutrition Exists Yes Malnutrition (severe): Acute Illness/Injury Evidenced By Suboptimal Energy Intake ( Severe),Weight Loss (Severe) Clinical Problem Acute Disease or Injury Related Malnutrition Etiology severe, acute malnutrition r/t inadequate energy intake w/ increased energy needs d/t COVID-19 Signs/Symptoms as evidenced by unintentional wt loss of 5.7#/5.3% <2 weeks, estimated PO intake meeting < 50% of estimated energy needs >2 weeks Status Active Problem Recommendation Dietitian Recommendations/Changes regular diet, 120mL glucerna ONS w/ meals d/t acute malnutrition. Lab / Micro Data Result Diagrams: 05/06/21 07:05 05/06/21 07:05 Labs: Laboratory Results - last 24 hr 05/05/21 13:50: Ferritin 670 H, Total Bilirubin 0.50, Direct Bilirubin 0.19, AST 25, ALT 28, Alkaline Phosphatase 69, Lactate Dehydrogenase 295 H, C-React Prot Ext Range 61.50 H, Total Protein 7.0, Albumin 2.8 L, Globulin 4.2 05/05/21 13:50: B-Natriuretic Peptide 83.6 05/05/21 17:00: D-Dimer Quant (PE/DVT) 1.25 H* 05/05/21 17:00: Procalcitonin 0.16 H 05/05/21 22:09: POC Glucose 409 H 05/06/21 07:05: WBC 12.0 H, RBC 4.28, Hgb 12.6, Hct 37.5, MCV 87.6, MCH 29.4, MCHC 33.6, RDW Std Deviation 41.0, RDW Coeff of Yaneli 12.9, Plt Count 241, MPV 11.8, Immature Gran % (Auto) 1.300 H, Neut % (Auto) 84.6 H, Lymph % (Auto) 7.3 L , [place] % (Auto) 6.4, Eos % (Auto) 0.1, Baso % (Auto) 0.3, Absolute Neuts (auto) 10.1 H, Absolute Lymphs (auto) 0.88, Nucleated RBC % 0 05/06/21 07:05: Sodium 135 L, Potassium 4.1, Chloride 101, Carbon Dioxide 25.0, Anion Gap 9, BUN 41 H, Creatinine 0.98, Estim Creat Clear Calc 29.60, Est GFR (MDRD) Af Amer 69, Est GFR (MDRD) Non-Af 57 L, BUN/Creatinine Ratio 41.9 H, Glucose 270 H, Calcium 8.6, Total Bilirubin 0.50, AST 18, ALT 26, Alkaline Phosphatase 65, Total Protein 6.6, Albumin 2.5 L, Globulin 4.1, Albumin/Globulin Ratio 0.6 L 05/06/21 08:47: POC Glucose 234 H 05/06/21 12:13: POC Glucose 296 H Micro: Microbiology 05/05/21 21:09 Sputum, Expectorated/Coughed Gram Stain - Final 05/05/21 21:09 Sputum, Expectorated/Coughed Respiratory Culture - Preliminary Staphylococcus aureus 05/05/21 20:21 Mucosa - Nasopharyngeal Respiratory Panel (PCR) - Final Rhythm Strip Rhythm Strip: Sinus Rhythm Rate: 70 Ectopy: None Physical Exam Const alert, oriented x3 and no apparent distress Exam Limitations: no limitations HEENT head/scalp atraumatic and moist oral mucous membranes Head and Scalp: normocephalic Eyes PERRL, EOMs intact bilaterally and conjunctivae normal Neck no lymphadenopathy Resp Resp Narrative: diminished breath sounds bibasally, no wheezes or crackles. On 10L of oxygen. Cardio regular rate, regular rhythm, S1 normal heart sound, S2 normal heart sound and no murmurs GI normal to inspection, nondistended, normoactive bowel sounds, soft to palpation, non-tender and non-distended Extremity normal to inspection, full ROM and no clubbing, cyanosis or edema Peripheral Pulses: Yes pulses 2+ throughout Skin no rashes or lesions noted Neuro oriented x3, CN's II-XII intact bilaterally and moves all extremities Sensorium / Orientation: awake and alert Psych affect normal Assessment & Plan Assessment/Plan (1) Pneumonia due to COVID-19 virus: (2) Hypoxia: (3) Adult failure to thrive: PLAN: # Acute hypoxic respiratory failure due to COVID 19 pneumonia * on 10L of oxygen. Was recently discharged home after being managed for covid. * symptoms got worse so she came back, now feeling better. * titrate oxyen to maintain sats >90%. Breathing treatment with bronchodilators. * consult ID as she will benefit from baricitinib * consult pulmonology * #Rheumatoid arthritis: on leflunomide #Elevated D dimer: D dimer is 1.25. Started on eliquis for thromboprophylaxis. #Type 2 diabetes mellitus: On ISS. Accuchecks ACHS #Hypertension; on losartan, norvasc and metoporolol. #Hyperlipidemia: on statin. #CAD s/p PCI: on aspirin, satin and metoprolol and losartan and amlodipine. #Asthma: on albuterol prn #Anxiety and depression: on citalopram #GERD: on PPI. #Severe malnutrition: regular diet and 120ml glucerna supplementation with meals. DVT prophylaxis: eliquis. Charges/Coding Visit Charges Inpatient E&M: 59617 Subs Hosp L3
--- NOTE | 2021-05-06 15:51 | CASEMGMT ---
RNCM Re-Admission Note: Met with patient at bedside. Admitted 04/30/21-05/03/21 for Acute hypoxic respiratory failure s/t Covid. Dc'd with [facility] and Home O2- [employer], 2lpm at rest and 4lpm w/exertion. Re-admitted 05/05/21 for Covid PNA, Hypoxia. Patient confirmed received her DC medications and was taking them. Patient states would like to return home with [facility], states did see her yesterday 05/05/21. States dtr Yazmin can stay with her if needed. Patient open to discussing SNF placement further as second option if recommended, SNF list provided to patient. Aware SNF [facility] [place] are the only ones currently accepting Covid patient's if she is not able to return home d/t weakness. Dtr called this check writer salesperson. S/w patient dtr Yazmin via phone and answered all questions regarding DC planning, per Dtr- patient f/u appointment was scheduled for Monday05/12/21 with her PCP. Per Yazmin she is off work for two weeks and able to stay with patient and help pretty much 12/12. Aware of Covid SNF Criteria, states that today is Day 14 and told quarantine for 20 days. YULIET Fitzpatrick
[2021-05-06 17:20] LABS: Bedside Glucose 330 mg/dL (70-110)
[2021-05-06] MEDS: Albuterol 2.5 MG/3 ML VIAL.NEB. INHALATION (20:45)
[2021-05-06] MEDS: Atorvastatin Calcium 20 MG Tablet PO (22:38)
[2021-05-06 23:16] LABS: Bedside Glucose 392 mg/dL (70-110)
[2021-05-07] VITALS (18 sets, daily range): BP systolic 134–144; BP diastolic 55–69; PULSE 47–89; RESP 14–21; TEMP 36.5–36.8; O2SAT 91–99
[2021-05-07] MEDS: Albuterol 2.5 MG/3 ML VIAL.NEB. INHALATION ×3 (07:03→15:17)
[2021-05-07 08:56] LABS: Absolute Lymphocyte Count 1.05 X10^3/uL (0.83-4.51); Absolute Neutrophil Count 9.3 X10^3/uL (2.0-7.7); Basophil# 0.02 X10^3/uL; Basophil% 0.2 % (0-1); Eosinophil# 0.01 X10^3/uL; Eosinophils% 0.1 % (0-5); Hematocrit 37.4 % (37-47); Hemoglobin 12.6 g/dL (12.0-15.0); Lymphocyte # 1.05 X10^3/ul (0.83-4.51); Lymphocyte % 9.1 % (19-41); Mean Corp Hgb Conc 33.7 g/dL (32-36); Mean Corpuscular Hgb 29.1 pg (27.0-32.0); Mean Corpuscular Volume 86.4 fL (81-99); Mean Platelet Vol. 11.2 fl (6.2-12.0); Monocyte# 1.09 X10^3/uL; Monocyte% 9.4 % (0-10); NRBC Flagged by Analyzer 0 % (0-5); Neutrophil # 9.29 X10^3/uL (2.7-7.7); Neutrophil % 80.4 % (47-70); Platelet Count 282 K/mm3 (150-450); RBC Distribution Width CV 12.9 % (11.6-14.6); RBC Distribution Width SD 40.3 fl (35.1-43.9); Red Blood Count 4.33 M/mm3 (4.2-5.4); White Blood Count 11.6 K/mm3 (4.4-11.0)
[2021-05-07] MEDS: Insulin Lispro 100 UNIT/ML INSULN.PEN 8 UNIT SC ×3 (09:12→17:30)
[2021-05-07] MEDS: Insulin Lispro 100 UNIT/ML INSULN.PEN SC ×4 (09:13→21:13)
[2021-05-07] MEDS: APIXABAN 2.5 MG TABLET PO ×2 (09:14→21:11)
[2021-05-07] MEDS: Citalopram 10 MG Tablet PO (09:15)
[2021-05-07] MEDS: Aspirin E.C. 81 MG Tablet PO (09:15)
[2021-05-07] MEDS: Pantoprazole Sodium 40 MG Tablet PO (09:15)
[2021-05-07] MEDS: Metoprolol(XL)Succ 25 MG Tablet 12.5 MG PO ×2 (09:15→21:11)
[2021-05-07] MEDS: amLODIPine 5 MG Tablet PO (09:15)
[2021-05-07] MEDS: Leflunomide 10 MG TABLET PO (09:16)
[2021-05-07] MEDS: Losartan Potassium 100 MG Tablet PO (09:16)
[2021-05-07] MEDS: Multivitamins,Therapeutic Tablet 1 TABLET PO ×2 (09:16)
[2021-05-07] MEDS: Isosorbide Mononitrate 30 MG Tablet 15 MG PO (09:16)
[2021-05-07 09:22] LABS: Anion Gap 7 (5-15); BUN 38 mg/dL (7-18); Calcium,Total 8.9 mg/dL (8.5-10.1); Chloride 104 mmol/L (98-107); EST Glomerular Filtration Rate 63 mL/min (>60); Est Glom Filt Rate - Afr Amer 76 mL/min (>60); Estimated Creatinine Clearance 31.66 ml/min; Glucose 196 mg/dL (74-106); Potassium 4.1 mmol/L (3.5-5.1); Sodium Level 138 mmol/L (136-145)
[2021-05-07] MEDS: dexAMETHasone 10 MG/ML Vial 6 MG IV (09:23)
[2021-05-07 09:31] LABS: Bedside Glucose 217 mg/dL (70-110)
[2021-05-07 12:06] LABS: Bedside Glucose 266 mg/dL (70-110)
--- NOTE | 2021-05-07 12:27 | PN.HOSP_ITS ---
Subjective Subjective Patient seen and examined. She had no complaints and was feeling better. She still coughing but is expectorating a lot of sputum. She remains on 10 L of oxygen. Objective Data Objective Data Vital Signs: Vital Signs Temp Pulse Resp BP Pulse Ox 97.8 F 81 19 H 144/57 H 91 05/07/21 08:00 05/07/21 11:29 05/07/21 11:29 05/07/21 09:15 05/07/21 11:29 Oxygen Flow Rate (L/min) 10 Oxygen Delivery Method High Flow Weight: 98 lb 8.746 oz Body Mass Index (BMI) 20.9 Intake & Output: Intake and Output for Last 24 Hours 05/05/21 05/06/21 05/07/21 23:59 23:59 23:59 Intake Total 1959 Output Total Balance 1958 Medical Nutrition Assessment Dietitian: Malnutrition Criteria Met Start: 05/06/21 13:04 Freq: Status: Active Protocol: Document 05/06/21 13:04 AG (Rec: 05/06/21 13:04 [id number]) Nutrition Malnutrition Evidence of Malnutrition Exists Yes Malnutrition (severe): Acute Illness/Injury Evidenced By Suboptimal Energy Intake ( Severe),Weight Loss (Severe) Clinical Problem Acute Disease or Injury Related Malnutrition Etiology severe, acute malnutrition r/t inadequate energy intake w/ increased energy needs d/t COVID-19 Signs/Symptoms as evidenced by unintentional wt loss of 5.7#/5.3% <2 weeks, estimated PO intake meeting < 50% of estimated energy needs >2 weeks Status Active Problem Recommendation Dietitian Recommendations/Changes regular diet, 120mL glucerna ONS w/ meals d/t acute malnutrition. Lab / Micro Data Result Diagrams: 05/07/21 08:43 05/07/21 08:43 Labs: Laboratory Results - last 24 hr 05/06/21 17:08: POC Glucose 330 H 05/06/21 22:45: POC Glucose 392 H 05/07/21 08:43: WBC 11.6 H, RBC 4.33, Hgb 12.6, Hct 37.4, MCV 86.4, MCH 29.1, MCHC 33.7, RDW Std Deviation 40.3, RDW Coeff of Yaneli 12.9, Plt Count 282, MPV 11.2, Immature Gran % (Auto) 0.800, Neut % (Auto) 80.4 H, Lymph % (Auto) 9.1 L, [place] % (Auto) 9.4, Eos % (Auto) 0.1, Baso % (Auto) 0.2, Absolute Neuts (auto) 9.3 H, Absolute Lymphs (auto) 1.05, Nucleated RBC % 0 05/07/21 08:43: Sodium 138, Potassium 4.1, Chloride 104, Carbon Dioxide 27.0, Anion Gap 7, BUN 38 H, Creatinine 0.90, Estim Creat Clear Calc 31.66, Est GFR (MDRD) Af Amer 76, Est GFR (MDRD) Non-Af 63, BUN/Creatinine Ratio 42.0 H, Glucose 196 H, Calcium 8.9 05/07/21 09:07: POC Glucose 217 H 05/07/21 11:47: POC Glucose 266 H Micro: Microbiology 05/05/21 21:09 Sputum, Expectorated/Coughed Gram Stain - Final 05/05/21 21:09 Sputum, Expectorated/Coughed Respiratory Culture - Final Staphylococcus aureus 05/05/21 20:21 Mucosa - Nasopharyngeal Respiratory Panel (PCR) - Final Radiography Diagnostic Testing: Radiology Impression Venous Doppler Study 05/05/21 18:45 Interpretation Summary No evidence for acute deep venous thrombosis bilateral lower extremities with patent and compressible bilateral great saphenous veins. Abreviated covid 19 protocol Ordering Physician: Joyce Valero Performed By: Buddy Keating RVT Rhythm Strip Rhythm Strip: Sinus Rhythm Rate: 70 Ectopy: None Physical Exam Const alert, oriented x3 and no apparent distress Exam Limitations: no limitations HEENT head/scalp atraumatic and moist oral mucous membranes Head and Scalp: normocephalic Eyes PERRL, EOMs intact bilaterally and conjunctivae normal Neck no lymphadenopathy Resp Resp Narrative: diminished breath sounds bibasally, no wheezes or crackles. still on 10L of oxygen. Cardio regular rate, regular rhythm, S1 normal heart sound, S2 normal heart sound and no murmurs GI normal to inspection, nondistended, normoactive bowel sounds, soft to palpation, non-tender and non-distended Extremity normal to inspection, full ROM and no clubbing, cyanosis or edema Peripheral Pulses: Yes pulses 2+ throughout Skin no rashes or lesions noted Neuro oriented x3, CN's II-XII intact bilaterally and moves all extremities Sensorium / Orientation: awake and alert Psych affect normal Assessment & Plan Assessment/Plan (1) Pneumonia due to COVID-19 virus: (2) Hypoxia: (3) Adult failure to thrive: PLAN: # Acute hypoxic respiratory failure due to COVID 19 pneumonia * still on 10L of oxygen. Feels better * ID and pulmonology consulted * titrate oxyen to maintain sats >90%. Breathing treatment with bronchodilators. * * #Rheumatoid arthritis: on leflunomide #Elevated D dimer:on eliquis for thromboprophylaxis #Type 2 diabetes mellitus: On ISS. Accuchecks ACHS #Hypertension; on losartan, norvasc and metoporolol. #Hyperlipidemia: on statin. #CAD s/p PCI: on aspirin, satin and metoprolol and losartan and amlodipine. #Asthma: on albuterol prn #Anxiety and depression: on citalopram #GERD: on PPI. #Severe malnutrition: regular diet and 120ml glucerna supplementation with meals. DVT prophylaxis: eliquis. Charges/Coding Visit Charges Inpatient E&M: 23799 Subs Hosp L2
--- NOTE | 2021-05-07 14:13 | CASEMGMT ---
Call from pt's daughter, Yazmin, requesting update on plan of care, pt's oxygen status. Daughter upset that she cannot be at pt's bedside. Daughter updated that pt on 10L of oxygen and that CM following therapy notes and home oxygen increased need. Daughter aware that pt's quarantine period for [facility] is 20 days but that she could possibly go to SNF prior to that if that is what therapy recommends. Daughter updated on facilities that are accepting COVID pt's 10-14 days out from positive test with help from Matthias CONNELLY. Daughter requesting call back from pt's nurse, Rod, and he is updated at this time. CM to follow. Christine TOSCANO CM
--- NOTE | 2021-05-07 14:45 | PCM.CONS.GEN ---
Assessment & Plan Assessment/Plan (1) Pneumonia due to COVID-19 virus: PLAN: Covid since 04/25. Vaccinated x2, will need booster. Isolate until 05/15. On dex. Sputum with mssa, will add cefazolin. Not candidate for baricitinib based on O2 reqs and immunosuppression (on leflunomide). Will follow, thank you (2) Hypoxia: HPI Consult Data Date of Consult: 05/07/21 HPI Narrative HPI Narrative: ESTUARDO MOODY, is a 85 F who presented 05/05 with sx since 04/25. Reports vaccine x2, was due for booster. C/o cough, congestion, headache, sore throat, nausea, green/navas sputum. Admitted on dex, not feeling much better. Full ROS performed and neg except as noted above. [facility] Medical History Abnormal stress test Arteriovenous fistula, acquired, of heart Asthma Atherosclerosis of [place] coronary artery of [place] heart without angina pectoris Bilateral carotid artery stenosis Cerebral artery occlusion Chest pain COPD (chronic obstructive pulmonary disease) Coronary artery anomaly Diabetes Epigastric pain Essential (primary) hypertension Former smoker GERD (gastroesophageal reflux disease) Presence of stent in coronary artery (~02/27/18) Pure hypercholesterolemia Sleep apnea Spinal stenosis TIA (transient ischemic attack) Home Medications multivitamin 1 tab PO DAILY 05/30/17 [History Last Taken 1 Week Ago ~04/28/21] pantoprazole 40 mg tablet,delayed release 40 mg PO DAILY 05/30/17 [History Last Taken 05/05/21] metoprolol succinate 25 mg tablet,extended release 24 hr 12.5 mg PO BID tab 01/11/18 [History Last Taken 05/05/21] citalopram 20 mg PO DAILY 04/28/20 [History Last Taken 05/05/21] leflunomide 10 mg PO DAILY 04/28/20 [History Last Taken 05/05/21] tramadol 50 mg PO BID PRN PRN 04/28/20 [History Last Taken 05/04/21] albuterol sulfate 1 - 2 puff INHALATION Q6H PRN PRN 05/28/20 [History Last Taken Unknown] isosorbide mononitrate 30 mg tablet,extended release 24 hr 15 mg PO DAILY #45 tab 06/08/20 [Rx Last Taken Unknown] aspirin 81 mg tablet,delayed release 81 mg PO DAILY 06/17/20 [History Last Taken Unknown] simvastatin 40 mg tablet 40 mg PO QHS tab 04/07/21 [History Last Taken 05/04/21] insulin aspart U-100 8 unit SC TID #0 ml 05/03/21 [Rx Last Taken 05/05/21] insulin detemir U-100 15 unit SQ BID #0 ml 05/03/21 [Rx Last Taken 05/05/21] losartan 100 mg PO DAILY #0 tab 05/03/21 [Rx Last Taken 05/05/21] Black Elderberry 1,000 mg PO/SL DAILY 05/05/21 [History Last Taken 05/04/21] acetaminophen 1,000 mg PO BID PRN 05/05/21 [History Last Taken 05/05/21] amlodipine 2.5 mg PO DAILY 05/05/21 [History Last Taken 05/05/21] apixaban [Eliquis] 2.5 mg PO BID 05/05/21 [History Last Taken 05/04/21] ascorbic acid (vitamin C) 500 mg PO DAILY 05/05/21 [History Last Taken 05/04/21] calcium-vitamin D3-vitamin K [Viactiv] 1 tab PO DAILY 05/05/21 [History Last Taken 05/05/21] cholecalciferol (vitamin D3) 25 mcg PO DAILY 05/05/21 [History Last Taken 05/04/21] cranberry 2,000 mg PO DAILY 05/05/21 [History Last Taken 05/04/21] dexamethasone 6 mg PO DAILY 05/05/21 [History Last Taken 05/05/21] guaifenesin [Mucinex] 1,200 mg PO BID 05/05/21 [History Last Taken 05/04/21] Allergy/AdvReac Type Severity Reaction Status Date / Time metronidazole [From Flagyl] Allergy Other Verified 05/05/21 12:58 oxycodone HCl Allergy Other Verified 05/05/21 12:58 [From OxyContin] Family History Father CAD (coronary artery disease) Myocardial infarction Mother Cancer Sister Breast cancer Surgical History H/O tubal ligation History of coronary artery stent placement History of cystoscopy (06/03/20) Hx of cardiac cath Presence of coronary angioplasty implant and graft (~02/27/18) S/p bilateral carpal tunnel release Social History (Updated 05/05/21 @ 20:30 by Leona Simon) household members: none housing: apartment current occupational status: retired leisure activities: games and other current gender identity: female Smoking Status: Former smoker how long ago did patient quit smokin years ago, when smoking 1/4-1/2 ppd maximum. second hand exposure: No alcohol intake: never substance use type: does not use caffeine: Yes Type: coffee Number of servings: 2 Physical Exam Const alert, oriented x3 and no apparent distress General Appearance: cooperative Exam Limitations: no limitations HEENT normocephalic and head/scalp atraumatic Eyes PERRL and EOMs intact bilaterally Neck supple and No nodes Resp Auscultation: diminished lung sounds Cardio regular rate and regular rhythm GI soft to palpation, non-tender and non-distended Extremity no clubbing, cyanosis or edema Skin no rashes or lesions noted Neuro CN's II-XII intact bilaterally Medical Records Data Medical Nutrition Assessment Dietitian: Malnutrition Criteria Met Start: 05/06/21 13:04 Freq: Status: Active Protocol: Document 05/06/21 13:04 (Rec: 05/06/21 13:04 [id number]) Nutrition Malnutrition Evidence of Malnutrition Exists Yes Malnutrition (severe): Acute Illness/Injury Evidenced By Suboptimal Energy Intake ( Severe),Weight Loss (Severe) Clinical Problem Acute Disease or Injury Related Malnutrition Etiology severe, acute malnutrition r/t inadequate energy intake w/ increased energy needs d/t COVID-19 Signs/Symptoms as evidenced by unintentional wt loss of 5.7#/5.3% <2 weeks, estimated PO intake meeting < 50% of estimated energy needs >2 weeks Status Active Problem Recommendation Dietitian Recommendations/Changes regular diet, 120mL glucerna ONS w/ meals d/t acute malnutrition. Lab / Micro Data Result Diagrams: 05/07/21 08:43 05/07/21 08:43 Labs: Laboratory Results - last 24 hr 05/06/21 17:08: POC Glucose 330 H 05/06/21 22:45: POC Glucose 392 H 05/07/21 08:43: WBC 11.6 H, RBC 4.33, Hgb 12.6, Hct 37.4, MCV 86.4, MCH 29.1, MCHC 33.7, RDW Std Deviation 40.3, RDW Coeff of Yaneli 12.9, Plt Count 282, MPV 11.2, Immature Gran % (Auto) 0.800, Neut % (Auto) 80.4 H, Lymph % (Auto) 9.1 L, [place] % (Auto) 9.4, Eos % (Auto) 0.1, Baso % (Auto) 0.2, Absolute Neuts (auto) 9.3 H, Absolute Lymphs (auto) 1.05, Nucleated RBC % 0 05/07/21 08:43: Sodium 138, Potassium 4.1, Chloride 104, Carbon Dioxide 27.0, Anion Gap 7, BUN 38 H, Creatinine 0.90, Estim Creat Clear Calc 31.66, Est GFR (MDRD) Af Amer 76, Est GFR (MDRD) Non-Af 63, BUN/Creatinine Ratio 42.0 H, Glucose 196 H, Calcium 8.9 05/07/21 09:07: POC Glucose 217 H 05/07/21 11:47: POC Glucose 266 H Micro: Microbiology 05/05/21 21:09 Sputum, Expectorated/Coughed Gram Stain - Final 05/05/21 21:09 Sputum, Expectorated/Coughed Respiratory Culture - Final Staphylococcus aureus Rhythm Strip Rhythm Strip: Sinus Rhythm Rate: 70 Ectopy: None Radiology Impression Venous Doppler Study 05/05/21 18:45 Interpretation Summary No evidence for acute deep venous thrombosis bilateral lower extremities with patent and compressible bilateral great saphenous veins. Abreviated covid 19 protocol Ordering Physician: Joyce Valero Performed By: Buddy Keating, RVT
[2021-05-07] MEDS: Cefazolin 1 GM/50 ML BAG IV ×2 (14:47→22:47)
--- NOTE | 2021-05-07 14:54 | EX.PCM.CONCC ---
Assessment & Plan Assessment/Plan (1) Pneumonia due to COVID-19 virus: (2) Hypoxia: PLAN: RECOMMENDATIONS: 1. Wean supplemental oxygen to maintain saturations at or above 90%. 2. Continue Decadron to complete treatment course. 3. Continue antimicrobials per ID recommendations. 4. Continue appropriate DVT prophylaxis. 5. Perform walking oximetry study prior to consideration for discharge home. 6. Diuretics, as needed, to maintain euvolemic state. 7. Encourage incentive spirometer use and mobilize patient as tolerated. 8. Given stable oxygenation status, will sign off. Defer management to hospitalist. IMPRESSIONS: 1. Acute hypoxemic respiratory failure secondary to COVID-19 pneumonia The patient was recently discharged from the hospital on May 03 after having been admitted for COVID-19, during which time, she was treated with remdesivir and Decadron. She returned to the ED with worsening dyspnea. Her sputum culture from May 05 was positive for MSSA. The patient was subsequently placed on antimicrobials. Recent CTA chest showed no evidence for PE. Oxygenation status is slowly improving. Agree with continuing antimicrobials to address bacterial pneumonia. Continue Decadron to complete treatment course. Continue appropriate prophylaxis as ordered. Encourage incentive spirometer use and mobilize patient as tolerated. 2. History of rheumatoid arthritis/diabetes mellitus/hypertension/hyperlipidemia/coronary artery disease/asthma Complicates care, management, recovery and prognosis. Continue home medications as indicated. This note was generated with [employer] dictation software. It may contain incorrect words, spelling, and punctuation that were not noted in checking the note before signing. HPI Consult Data Date of Consult: 05/07/21 HPI Narrative Reason for Consultation: Acute hypoxemic respiratory failure secondary to COVID-19 pneumonia HPI Narrative: The patient is an 85-year-old female, with a history as outlined below, who presented to the emergency department via EMS on May 05 with worsening shortness of breath. The patient was just recently discharged from the hospital after having been admitted April 30 with respiratory failure secondary to COVID-19 pneumonia. The patient did require supplemental oxygen at the time of her discharge. The patient is vaccinated against coronavirus. She was treated with Decadron and remdesivir during her last hospitalization. On presentation to the emergency department, the patient was noted to be afebrile and hemodynamically stable. She was saturating in the low 90s on 5 L/min via nasal cannula. Initial laboratory evaluation revealed a white blood cell count of 12,000. Chemistry profile was notable for a creatinine of 1.08. The patient was subsequently placed on antimicrobials and continued on Decadron. The patient is currently maintaining appropriate oxygen saturations on 8 L/min via nasal cannula. She is currently documented to be overall net +1.7 L for the hospitalization. [facility] Medical History Abnormal stress test Arteriovenous fistula, acquired, of heart Asthma Atherosclerosis of [place] coronary artery of [place] heart without angina pectoris Bilateral carotid artery stenosis Cerebral artery occlusion Chest pain COPD (chronic obstructive pulmonary disease) Coronary artery anomaly Diabetes Epigastric pain Essential (primary) hypertension Former smoker GERD (gastroesophageal reflux disease) Presence of stent in coronary artery (~02/27/18) Pure hypercholesterolemia Sleep apnea Spinal stenosis TIA (transient ischemic attack) Home Medications multivitamin 1 tab PO DAILY 05/30/17 [History Last Taken 1 Week Ago ~04/28/21] pantoprazole 40 mg tablet,delayed release 40 mg PO DAILY 05/30/17 [History Last Taken 05/05/21] metoprolol succinate 25 mg tablet,extended release 24 hr 12.5 mg PO BID tab 01/11/18 [History Last Taken 05/05/21] citalopram 20 mg PO DAILY 04/28/20 [History Last Taken 05/05/21] leflunomide 10 mg PO DAILY 04/28/20 [History Last Taken 05/05/21] tramadol 50 mg PO BID PRN PRN 04/28/20 [History Last Taken 05/04/21] albuterol sulfate 1 - 2 puff INHALATION Q6H PRN PRN 05/28/20 [History Last Taken Unknown] isosorbide mononitrate 30 mg tablet,extended release 24 hr 15 mg PO DAILY #45 tab 06/08/20 [Rx Last Taken Unknown] aspirin 81 mg tablet,delayed release 81 mg PO DAILY 06/17/20 [History Last Taken Unknown] simvastatin 40 mg tablet 40 mg PO QHS tab 04/07/21 [History Last Taken 05/04/21] insulin aspart U-100 8 unit SC TID #0 ml 05/03/21 [Rx Last Taken 05/05/21] insulin detemir U-100 15 unit SQ BID #0 ml 05/03/21 [Rx Last Taken 05/05/21] losartan 100 mg PO DAILY #0 tab 05/03/21 [Rx Last Taken 05/05/21] Black Elderberry 1,000 mg PO/SL DAILY 05/05/21 [History Last Taken 05/04/21] acetaminophen 1,000 mg PO BID PRN 05/05/21 [History Last Taken 05/05/21] amlodipine 2.5 mg PO DAILY 05/05/21 [History Last Taken 05/05/21] apixaban [Eliquis] 2.5 mg PO BID 05/05/21 [History Last Taken 05/04/21] ascorbic acid (vitamin C) 500 mg PO DAILY 05/05/21 [History Last Taken 05/04/21] calcium-vitamin D3-vitamin K [Viactiv] 1 tab PO DAILY 05/05/21 [History Last Taken 05/05/21] cholecalciferol (vitamin D3) 25 mcg PO DAILY 05/05/21 [History Last Taken 05/04/21] cranberry 2,000 mg PO DAILY 05/05/21 [History Last Taken 05/04/21] dexamethasone 6 mg PO DAILY 05/05/21 [History Last Taken 05/05/21] guaifenesin [Mucinex] 1,200 mg PO BID 05/05/21 [History Last Taken 05/04/21] Allergy/AdvReac Type Severity Reaction Status Date / Time metronidazole [From Flagyl] Allergy Other Verified 05/05/21 12:58 oxycodone HCl Allergy Other Verified 05/05/21 12:58 [From OxyContin] Family History Father CAD (coronary artery disease) Myocardial infarction Mother Cancer Sister Breast cancer Surgical History H/O tubal ligation History of coronary artery stent placement History of cystoscopy (06/03/20) Hx of cardiac cath Presence of coronary angioplasty implant and graft (~02/27/18) S/p bilateral carpal tunnel release Social History (Updated 05/05/21 @ 20:30 by Leona Simon) household members: none housing: apartment current occupational status: retired leisure activities: games and other current gender identity: female Smoking Status: Former smoker how long ago did patient quit smokin years ago, when smoking 1/4-1/2 ppd maximum. second hand exposure: No alcohol intake: never substance use type: does not use caffeine: Yes Type: coffee Number of servings: 2 ROS Constitutional Constitutional: Reports fatigue and malaise Eyes Eyes: Denies blurry vision or change in vision ENT HEENT: Denies dizziness, headache(s) or loss taste/smell Cardiovascular Cardiovascular: Reports dyspnea; Denies chest pain or dizziness Respiratory/Chest Respiratory/Chest: Reports cough and dyspnea Gastrointestinal Gastrointestinal: Denies abdominal pain, diarrhea, nausea or vomiting Genitourinary Genitourinary: Denies difficulty urinating Musculoskeletal Musculoskeletal: Denies arthralgias or back pain Integumentary Integumentary: Denies lesions, rash or skin ulcer Neurologic Neurologic: Denies abnormal gait or abnormal speech Psychiatric Psychiatric: Denies anxiety or depression Endocrine Endocrinology: Reports fatigue Hematologic/Lymphatic Hematologic/Lymphatic: Denies easy bleeding or easy bruising Physical Exam Const alert and no apparent distress General Appearance: cooperative HEENT normocephalic, head/scalp atraumatic and moist oral mucous membranes Eyes PERRL, EOMs intact bilaterally and conjunctivae normal Neck supple General: trachea midline Chest inspection of chest normal Resp normal respiratory effort Auscultation: rales and diminished lung sounds Cardio regular rate and regular rhythm GI normal to inspection, nondistended, normoactive bowel sounds Extremity no clubbing, cyanosis or edema Skin no rashes or lesions noted Neuro CN's II-XII intact bilaterally, moves all extremities and no focal motor deficits Psych cooperative and affect normal Medical Records Data Medical Nutrition Assessment Dietitian: Malnutrition Criteria Met Start: 05/06/21 13:04 Freq: Status: Active Protocol: Document 05/06/21 13:04 (Rec: 05/06/21 13:04 [id number]) Nutrition Malnutrition Evidence of Malnutrition Exists Yes Malnutrition (severe): Acute Illness/Injury Evidenced By Suboptimal Energy Intake ( Severe),Weight Loss (Severe) Clinical Problem Acute Disease or Injury Related Malnutrition Etiology severe, acute malnutrition r/t inadequate energy intake w/ increased energy needs d/t COVID-19 Signs/Symptoms as evidenced by unintentional wt loss of 5.7#/5.3% <2 weeks, estimated PO intake meeting < 50% of estimated energy needs >2 weeks Status Active Problem Recommendation Dietitian Recommendations/Changes regular diet, 120mL glucerna ONS w/ meals d/t acute malnutrition. Lab / Micro Data Result Diagrams: 05/07/21 08:43 05/07/21 08:43 Labs: Laboratory Results - last 24 hr 05/06/21 17:08: POC Glucose 330 H 05/06/21 22:45: POC Glucose 392 H 05/07/21 08:43: WBC 11.6 H, RBC 4.33, Hgb 12.6, Hct 37.4, MCV 86.4, MCH 29.1, MCHC 33.7, RDW Std Deviation 40.3, RDW Coeff of [place] 12.9, Plt Count 282, MPV 11.2, Immature Gran % (Auto) 0.800, Neut % (Auto) 80.4 H, Lymph % (Auto) 9.1 L, [place] % (Auto) 9.4, Eos % (Auto) 0.1, Baso % (Auto) 0.2, Absolute Neuts (auto) 9.3 H, Absolute Lymphs (auto) 1.05, Nucleated RBC % 0 05/07/21 08:43: Sodium 138, Potassium 4.1, Chloride 104, Carbon Dioxide 27.0, Anion Gap 7, BUN 38 H, Creatinine 0.90, Estim Creat Clear Calc 31.66, Est GFR (MDRD) Af Amer 76, Est GFR (MDRD) Non-Af 63, BUN/Creatinine Ratio 42.0 H, Glucose 196 H, Calcium 8.9 05/07/21 09:07: POC Glucose 217 H 05/07/21 11:47: POC Glucose 266 H Micro: Microbiology 05/05/21 21:09 Sputum, Expectorated/Coughed Gram Stain - Final 05/05/21 21:09 Sputum, Expectorated/Coughed Respiratory Culture - Final Staphylococcus aureus Rhythm Strip Rhythm Strip: Sinus Rhythm Rate: 70 Ectopy: None Radiology Impression Venous Doppler Study 05/05/21 18:45 Interpretation Summary No evidence for acute deep venous thrombosis bilateral lower extremities with patent and compressible bilateral great saphenous veins. Abreviated covid 19 protocol Ordering Physician: Joyce Valero Performed By: Buddy Keating RVT Charges/Coding Visit Charges Inpatient E&M: 07767 Init Hosp L3
[2021-05-07] MEDS: Atorvastatin Calcium 20 MG Tablet PO (21:11)
[2021-05-07] MEDS: Acetaminophen 325 MG Tablet 650 MG PO (22:32)
[2021-05-07] MEDS: 0.9% Saline Lock 10 ML Syringe IV (22:48)
[2021-05-07 23:01] LABS: Bedside Glucose 447 mg/dL (70-110)
[2021-05-08] VITALS (12 sets, daily range): BP systolic 120–159; BP diastolic 61–72; PULSE 49–76; RESP 14–19; TEMP 36–36.6; O2SAT 95–96
[2021-05-08] MEDS: Cefazolin 1 GM/50 ML BAG IV ×2 (08:22→21:47)
[2021-05-08] MEDS: dexAMETHasone 10 MG/ML Vial 6 MG IV (08:22)
[2021-05-08] MEDS: amLODIPine 5 MG Tablet PO (08:22)
[2021-05-08] MEDS: 0.9% Saline Lock 10 ML Syringe IV ×2 (08:23→21:47)
[2021-05-08] MEDS: Losartan Potassium 100 MG Tablet PO (08:24)
[2021-05-08] MEDS: Pantoprazole Sodium 40 MG Tablet PO (08:24)
[2021-05-08] MEDS: Citalopram 10 MG Tablet PO (08:25)
[2021-05-08] MEDS: APIXABAN 2.5 MG TABLET PO ×2 (08:27→21:46)
[2021-05-08] MEDS: Isosorbide Mononitrate 30 MG Tablet 15 MG PO (08:27)
[2021-05-08] MEDS: Leflunomide 10 MG TABLET PO (08:27)
[2021-05-08] MEDS: Aspirin E.C. 81 MG Tablet PO (08:27)
[2021-05-08] MEDS: Insulin Lispro 100 UNIT/ML INSULN.PEN 8 UNIT SC ×3 (08:28→17:00)
[2021-05-08] MEDS: Menthol/Lanolin/Calamine/Znox 113 GM Tube 1 APPLIC TOPICAL ×2 (08:30→21:57)
[2021-05-08 09:26] LABS: Bedside Glucose 134 mg/dL (70-110)
[2021-05-08 11:06] LABS: Bedside Glucose > 500 mg/dL (70-110)
[2021-05-08 11:06] LABS: Bedside Glucose 473 mg/dL (70-110)
[2021-05-08 12:35] LABS: Bedside Glucose 146 mg/dL (70-110)
--- NOTE | 2021-05-08 13:12 | PN.HOSP_ITS ---
Subjective Subjective Patient seen and examined. She feels much better today. She says her shortness of breath has improved, and she is down to 4L of oxygen. Review of systems otherwise negative Objective Data Objective Data Vital Signs: Vital Signs Temp Pulse Resp BP Pulse Ox 97.0 F L 67 18 141/72 H 95 05/08/21 12:00 05/08/21 12:00 05/08/21 12:00 05/08/21 12:00 05/08/21 12:00 Oxygen Flow Rate (L/min) 4 Oxygen Delivery Method Nasal Cannula Weight: 106 lb 4.205 oz Body Mass Index (BMI) 20.9 Intake & Output: Intake and Output for Last 24 Hours 05/06/21 05/07/21 05/08/21 23:59 23:59 23:59 Intake Total 1959 / 1959 700 / 700 530 / 530 Output Total 1000 / 1000 Balance 1958 / 1958 -300 / -300 530 / 530 Medical Nutrition Assessment Dietitian: Malnutrition Criteria Met Start: 05/06/21 13:04 Freq: Status: Active Protocol: Document 05/06/21 13:04 AG (Rec: 05/06/21 13:04 [id number]) Nutrition Malnutrition Evidence of Malnutrition Exists Yes Malnutrition (severe): Acute Illness/Injury Evidenced By Suboptimal Energy Intake ( Severe),Weight Loss (Severe) Clinical Problem Acute Disease or Injury Related Malnutrition Etiology severe, acute malnutrition r/t inadequate energy intake w/ increased energy needs d/t COVID-19 Signs/Symptoms as evidenced by unintentional wt loss of 5.7#/5.3% <2 weeks, estimated PO intake meeting < 50% of estimated energy needs >2 weeks Status Active Problem Recommendation Dietitian Recommendations/Changes regular diet, 120mL glucerna ONS w/ meals d/t acute malnutrition. Lab / Micro Data Result Diagrams: 05/07/21 08:43 05/07/21 08:43 Labs: Laboratory Results - last 24 hr 05/07/21 17:28: POC Glucose > 500 H* 05/07/21 17:30: POC Glucose 473 H* 05/07/21 21:11: POC Glucose 447 H 05/08/21 08:20: POC Glucose 134 H 05/08/21 12:17: POC Glucose 146 H Micro: Microbiology 05/05/21 21:09 Sputum, Expectorated/Coughed Gram Stain - Final 05/05/21 21:09 Sputum, Expectorated/Coughed Respiratory Culture - Final Staphylococcus aureus 05/05/21 20:21 Mucosa - Nasopharyngeal Respiratory Panel (PCR) - Final Rhythm Strip Rhythm Strip: Sinus Rhythm Rate: 70 Ectopy: None Physical Exam Const alert, oriented x3 and no apparent distress Exam Limitations: no limitations HEENT head/scalp atraumatic and moist oral mucous membranes Head and Scalp: normocephalic Eyes PERRL, EOMs intact bilaterally and conjunctivae normal Neck no lymphadenopathy Resp Resp Narrative: diminished breath sounds bibasally, no wheezes or crackles. now on 4L of oxygen. Cardio regular rate, regular rhythm, S1 normal heart sound, S2 normal heart sound and no murmurs GI normal to inspection, nondistended, normoactive bowel sounds, soft to palpation, non-tender and non-distended Extremity normal to inspection, full ROM and no clubbing, cyanosis or edema Peripheral Pulses: Yes pulses 2+ throughout Skin no rashes or lesions noted Neuro oriented x3, CN's II-XII intact bilaterally and moves all extremities Sensorium / Orientation: awake and alert Psych affect normal Assessment & Plan Assessment/Plan (1) Pneumonia due to COVID-19 virus: (2) Hypoxia: (3) Adult failure to thrive: PLAN: # Acute hypoxic respiratory failure due to COVID 19 pneumonia * now down to 4L of oxygen. * ID and pulmonology on board * on decadron 6mg daily * titrate oxygen to maintain sats >90%. Breathing treatment with bronchodilators. * #Rheumatoid arthritis: on leflunomide #Elevated D dimer:on eliquis for thromboprophylaxis #Type 2 diabetes mellitus: On ISS. Accuchecks ACHS #Hypertension; on losartan, norvasc and metoporolol. #Hyperlipidemia: on statin. #CAD s/p PCI: on aspirin, satin and metoprolol and losartan and amlodipine. #Asthma: on albuterol prn #Anxiety and depression: on citalopram #GERD: on PPI. #Severe malnutrition: regular diet and 120ml glucerna supplementation with meals. DVT prophylaxis: eliquis. Charges/Coding Visit Charges Inpatient E&M: 37211 Subs Hosp L2
[2021-05-08] MEDS: Insulin Lispro 100 UNIT/ML INSULN.PEN SC ×2 (17:00→21:48)
[2021-05-08 17:11] LABS: Bedside Glucose 310 mg/dL (70-110)
[2021-05-08] MEDS: Metoprolol(XL)Succ 25 MG Tablet 12.5 MG PO (21:46)
[2021-05-08] MEDS: Atorvastatin Calcium 20 MG Tablet PO (21:47)
[2021-05-08] MEDS: Acetaminophen 325 MG Tablet 650 MG PO (21:54)
[2021-05-08 22:11] LABS: Bedside Glucose 329 mg/dL (70-110)
[2021-05-09] VITALS (13 sets, daily range): BP systolic 121–168; BP diastolic 55–74; PULSE 46–71; RESP 16–18; TEMP 36.4–36.7; O2SAT 88–99
[2021-05-09 06:49] LABS: Absolute Lymphocyte Count 1.16 X10^3/uL (0.83-4.51); Absolute Neutrophil Count 15.8 X10^3/uL (2.0-7.7); Basophil# 0.04 X10^3/uL; Basophil% 0.2 % (0-1); Eosinophil# 0.02 X10^3/uL; Eosinophils% 0.1 % (0-5); Hematocrit 34.3 % (37-47); Hemoglobin 11.3 g/dL (12.0-15.0); Lymphocyte # 1.16 X10^3/ul (0.83-4.51); Lymphocyte % 6.3 % (19-41); Mean Corp Hgb Conc 32.9 g/dL (32-36); Mean Corpuscular Hgb 28.9 pg (27.0-32.0); Mean Corpuscular Volume 87.7 fL (81-99); Mean Platelet Vol. 12.4 fl (6.2-12.0); Monocyte# 1.28 X10^3/uL; Monocyte% 6.9 % (0-10); NRBC Flagged by Analyzer 0 % (0-5); Neutrophil # 15.78 X10^3/uL (2.7-7.7); Neutrophil % 85.3 % (47-70); Platelet Count 282 K/mm3 (150-450); RBC Distribution Width CV 13.2 % (11.6-14.6); RBC Distribution Width SD 41.9 fl (35.1-43.9); Red Blood Count 3.91 M/mm3 (4.2-5.4); White Blood Count 18.5 K/mm3 (4.4-11.0)
[2021-05-09] MEDS: Cefazolin 1 GM/50 ML BAG IV ×2 (08:40→21:51)
[2021-05-09] MEDS: dexAMETHasone 10 MG/ML Vial 6 MG IV (08:41)
[2021-05-09] MEDS: Citalopram 10 MG Tablet PO (08:41)
[2021-05-09] MEDS: Losartan Potassium 100 MG Tablet PO (08:41)
[2021-05-09] MEDS: 0.9% Saline Lock 10 ML Syringe IV ×3 (08:41→21:52)
[2021-05-09] MEDS: amLODIPine 5 MG Tablet PO (08:41)
[2021-05-09] MEDS: APIXABAN 2.5 MG TABLET PO ×2 (08:41→21:52)
[2021-05-09] MEDS: Leflunomide 10 MG TABLET PO (08:41)
[2021-05-09] MEDS: Menthol/Lanolin/Calamine/Znox 113 GM Tube 1 APPLIC TOPICAL ×2 (08:41→21:53)
[2021-05-09] MEDS: Aspirin E.C. 81 MG Tablet PO (08:41)
[2021-05-09] MEDS: Multivitamins,Therapeutic Tablet 1 TABLET PO (08:41)
[2021-05-09] MEDS: Isosorbide Mononitrate 30 MG Tablet 15 MG PO (08:42)
[2021-05-09] MEDS: Pantoprazole Sodium 40 MG Tablet PO (08:42)
[2021-05-09] MEDS: Insulin Lispro 100 UNIT/ML INSULN.PEN 8 UNIT SC ×3 (08:43→17:21)
[2021-05-09] MEDS: Insulin Lispro 100 UNIT/ML INSULN.PEN SC ×4 (08:44→21:53)
[2021-05-09 08:51] LABS: Bedside Glucose 207 mg/dL (70-110)
[2021-05-09] MEDS: Metoprolol(XL)Succ 25 MG Tablet 12.5 MG PO ×2 (08:52→21:52)
--- NOTE | 2021-05-09 11:13 | PN.HOSP_ITS ---
Subjective Subjective Patient seen and examined. She feels much better and has no complaints. She is now on 2L of oxygen. She is still coughing, and expectorating yellowish sputum. Review of systems otherwise negative. She wishes to stay one more day in the hospital. Objective Data Objective Data Vital Signs: Vital Signs Temp Pulse Resp BP Pulse Ox 97.7 F L 70 18 168/74 H 94 05/09/21 08:40 05/09/21 08:52 05/09/21 08:40 05/09/21 08:40 05/09/21 08:40 Oxygen Flow Rate (L/min) [ 2 AMBULATING with Oxygen #1] Oxygen Flow Rate (L/min) [At 2 REST with Oxygen] Oxygen Flow Rate (L/min) 2 Oxygen Delivery Method Nasal Cannula Weight: 101 lb 13.657 oz Body Mass Index (BMI) 20.9 Intake & Output: Intake and Output for Last 24 Hours 05/07/21 05/08/21 05/09/21 23:59 23:59 23:59 Intake Total 700 / 700 820 / 870 100 / 100 Output Total 1000 / 1000 Balance -300 / -300 820 / 870 100 / 100 Medical Nutrition Assessment Dietitian: Malnutrition Criteria Met Start: 05/06/21 13:04 Freq: Status: Active Protocol: Document 05/06/21 13:04 (Rec: 05/06/21 13:04 [id number]) Nutrition Malnutrition Evidence of Malnutrition Exists Yes Malnutrition (severe): Acute Illness/Injury Evidenced By Suboptimal Energy Intake ( Severe),Weight Loss (Severe) Clinical Problem Acute Disease or Injury Related Malnutrition Etiology severe, acute malnutrition r/t inadequate energy intake w/ increased energy needs d/t COVID-19 Signs/Symptoms as evidenced by unintentional wt loss of 5.7#/5.3% <2 weeks, estimated PO intake meeting < 50% of estimated energy needs >2 weeks Status Active Problem Recommendation Dietitian Recommendations/Changes regular diet, 120mL glucerna ONS w/ meals d/t acute malnutrition. Lab / Micro Data Result Diagrams: 05/09/21 05:20 05/07/21 08:43 Labs: Laboratory Results - last 24 hr 05/08/21 12:17: POC Glucose 146 H 05/08/21 16:46: POC Glucose 310 H 05/08/21 21:45: POC Glucose 329 H 05/09/21 05:20: WBC 18.5 H, RBC 3.91 L, Hgb 11.3 L, Hct 34.3 L, MCV 87.7, MCH 28.9, MCHC 32.9, RDW Std Deviation 41.9, RDW Coeff of Yaneli 13.2, Plt Count 282, MPV 12.4 H, Immature Gran % (Auto) 1.200 H, Neut % (Auto) 85.3 H, Lymph % (Auto) 6.3 L, [place] % (Auto) 6.9, Eos % (Auto) 0.1, Baso % (Auto) 0.2, Absolute Neuts (auto) 15.8 H, Absolute Lymphs (auto) 1.16, Nucleated RBC % 0 05/09/21 08:32: POC Glucose 207 H Micro: Microbiology 05/05/21 21:09 Sputum, Expectorated/Coughed Gram Stain - Final 05/05/21 21:09 Sputum, Expectorated/Coughed Respiratory Culture - Final Staphylococcus aureus 05/05/21 20:21 Mucosa - Nasopharyngeal Respiratory Panel (PCR) - Final Rhythm Strip Rhythm Strip: Sinus Rhythm Rate: 70 Ectopy: None Physical Exam Const alert, oriented x3 and no apparent distress Exam Limitations: no limitations HEENT head/scalp atraumatic and moist oral mucous membranes Head and Scalp: normocephalic Eyes PERRL, EOMs intact bilaterally and conjunctivae normal Neck no lymphadenopathy Resp Resp Narrative: diminished breath sounds bibasally, no wheezes or crackles. now on 2L of oxygen. Cardio regular rate, regular rhythm, S1 normal heart sound, S2 normal heart sound and no murmurs GI normal to inspection, nondistended, normoactive bowel sounds, soft to palpation, non-tender and non-distended Extremity normal to inspection, full ROM and no clubbing, cyanosis or edema Peripheral Pulses: Yes pulses 2+ throughout Skin no rashes or lesions noted Neuro oriented x3, CN's II-XII intact bilaterally and moves all extremities Sensorium / Orientation: awake and alert Psych affect normal Assessment & Plan Assessment/Plan (1) Pneumonia due to COVID-19 virus: (2) Hypoxia: (3) Adult failure to thrive: PLAN: # Acute hypoxic respiratory failure due to COVID 19 pneumonia * now down to 2L of oxygen. * ID and pulmonology on board * on decadron 6mg daily * titrate oxygen to maintain sats >90%. Breathing treatment with bronchodilators. * #Rheumatoid arthritis: on leflunomide #Elevated D dimer:on eliquis for thromboprophylaxis #Type 2 diabetes mellitus: On ISS. Accuchecks ACHS #Hypertension; on losartan, norvasc and metoporolol. #Hyperlipidemia: on statin. #CAD s/p PCI: on aspirin, satin and metoprolol and losartan and amlodipine. #Asthma: on albuterol prn #Anxiety and depression: on citalopram #GERD: on PPI. #Severe malnutrition: regular diet and 120ml glucerna supplementation with meals. DVT prophylaxis: eliquis. Disposition: for likely discharge tomorrow. Wants to stay one more day. Charges/Coding Visit Charges Inpatient E&M: 25441 Subs Hosp L2
[2021-05-09 12:00] LABS: Bedside Glucose 253 mg/dL (70-110)
[2021-05-09] MEDS: Sodium Chloride 0.65% 1 SPRAY SPRAY.BTL 2 SPRAY NASAL (17:19)
[2021-05-09 17:31] LABS: Bedside Glucose 248 mg/dL (70-110)
[2021-05-09] MEDS: Atorvastatin Calcium 20 MG Tablet PO (21:52)
[2021-05-09] MEDS: Acetaminophen 325 MG Tablet 650 MG PO (21:54)
[2021-05-10] VITALS (10 sets, daily range): BP systolic 128–149; BP diastolic 45–58; PULSE 47–69; RESP 18; TEMP 36.4–37; O2SAT 84–96
[2021-05-10 00:31] LABS: Bedside Glucose 318 mg/dL (70-110)
[2021-05-10 06:47] LABS: Absolute Lymphocyte Count 1.31 X10^3/uL (0.83-4.51); Basophil# 0.04 X10^3/uL; Basophil% 0.2 % (0-1); Eosinophil# 0.04 X10^3/uL; Eosinophils% 0.2 % (0-5); Hematocrit 33.4 % (37-47); Lymphocyte # 1.31 X10^3/ul (0.83-4.51); Lymphocyte % 6.9 % (19-41); Mean Corp Hgb Conc 32.9 g/dL (32-36); Mean Corpuscular Hgb 28.8 pg (27.0-32.0); Mean Corpuscular Volume 87.4 fL (81-99); Mean Platelet Vol. 11.6 fl (6.2-12.0); Monocyte# 1.25 X10^3/uL; Monocyte% 6.6 % (0-10); NRBC Flagged by Analyzer 0 % (0-5); Neutrophil # 16.03 X10^3/uL (2.7-7.7); Neutrophil % 84.3 % (47-70); Platelet Count 291 K/mm3 (150-450); RBC Distribution Width SD 41.1 fl (35.1-43.9); Red Blood Count 3.82 M/mm3 (4.2-5.4)
[2021-05-10] MEDS: Cefazolin 1 GM/50 ML BAG IV (09:13)
[2021-05-10] MEDS: Metoprolol(XL)Succ 25 MG Tablet 12.5 MG PO (09:15)
[2021-05-10] MEDS: Leflunomide 10 MG TABLET PO (09:15)
[2021-05-10] MEDS: Losartan Potassium 100 MG Tablet PO (09:16)
[2021-05-10] MEDS: Multivitamins,Therapeutic Tablet 1 TABLET PO (09:16)
[2021-05-10] MEDS: Aspirin E.C. 81 MG Tablet PO (09:16)
[2021-05-10] MEDS: Isosorbide Mononitrate 30 MG Tablet 15 MG PO (09:16)
[2021-05-10] MEDS: Pantoprazole Sodium 40 MG Tablet PO (09:17)
[2021-05-10] MEDS: amLODIPine 5 MG Tablet PO (09:17)
[2021-05-10] MEDS: Citalopram 10 MG Tablet PO (09:17)
[2021-05-10] MEDS: dexAMETHasone 10 MG/ML Vial 6 MG IV (09:17)
[2021-05-10] MEDS: APIXABAN 2.5 MG TABLET PO (09:17)
[2021-05-10] MEDS: 0.9% Saline Lock 10 ML Syringe IV (09:18)
[2021-05-10] MEDS: Insulin Lispro 100 UNIT/ML INSULN.PEN 8 UNIT SC ×2 (09:23→11:20)
[2021-05-10] MEDS: Insulin Lispro 100 UNIT/ML INSULN.PEN SC ×2 (09:23→11:20)
[2021-05-10] MEDS: Menthol/Lanolin/Calamine/Znox 113 GM Tube 1 APPLIC TOPICAL (09:26)
[2021-05-10 09:35] LABS: Bedside Glucose 163 mg/dL (70-110)
[2021-05-10 11:35] LABS: Bedside Glucose 252 mg/dL (70-110)
--- NOTE | 2021-05-10 13:20 | CASEMGMT ---
Addendum entered by Neisha Felix 05/10/21 15:52: Per Bhavya at [facility], they can now do SOC 05/11/21 and order placed for SN, PT/OT. Christine TOSCANO CM Addendum entered by Neisha Felix 05/10/21 13:56: Call back from Bhavya at [facility] and she states they can accept pt and do SOC monday, maybe tomorrow if pt does leave today. Christine TOSCANO CM Original Note: Per Bhavya at [facility], SOC was never completed as they went out and then pt was sent back into [facility] ED. New order needs placed and Bhavya will call this RN CM back about whether they can accept again. Pt states plan is to go home with [facility] and states no further concerns. Pt states is feeling much better. Per home oxygen testing, pt still qualifies for 2L at rest and 4L w/ exertion, which is what she was sent home on last visit. CM to follow. Christine TOSCANO CM
--- NOTE | 2021-05-10 14:14 | PCM.DC ---
Discharge Instructions Diet Discharge Diet: Low fat / Low cholesterol Activity Discharge Activity: Return to Normal Activity Additional Activity Instructions:: Self isolate for at least 20 days since symptoms began 04/21- AND at least one day (24 hours) have passed since resolution of fever without the use of fever-reducing agents AND improvement of symptoms (e.g., cough, shortness of breath) When around people in the same room, wear a face mask. Individuals also in the room should wear a mask. If possible, use a different bathroom and bedroom. Perform adequate hand hygiene. Avoid sharing dishes, glasses, etc. Dressing / Incision Call your doctor if your incision/area has: Continuous Slow Oozing Follow Up Care Test Results: Test results from this visit will be discussed in further detail at your follow-up appointment, if applicable. Discharge Plan Admission Admit Date/Time: 05/05/21 16:30 Primary Reason for Your Visit: COVID 19 Attending Provider: Burak Curtis Primary Care Provider: Zulma Corral Consulting Providers: Ned Petersen ; Lawrence Church ; Chyna Styles NP ; Alessandro Guido Discharge Orders/Prescriptions Prescriptions: New dexamethasone 6 mg tablet 6 mg PO DAILY Qty: 5 RF: 0 sulfamethoxazole-trimethoprim [Bactrim] 400-80 mg tablet 1 tab PO BID Qty: 14 RF: 0 Continued pantoprazole 40 mg tablet,delayed release (DR/EC) 40 mg PO DAILY RF: 0 multivitamin tablet 1 tab PO DAILY RF: 0 metoprolol succinate 25 mg tablet extended release 24 hr 12.5 mg PO BID RF: 0 aspirin 81 mg tablet,delayed release (DR/EC) 81 mg PO DAILY RF: 0 tramadol 50 MG tablet 50 mg PO BID PRN PRN (Reason: Pain 1-10 Or Fever) RF: 0 citalopram 20 MG tablet 20 mg PO DAILY RF: 0 simvastatin 40 mg tablet 40 mg PO QHS RF: 0 albuterol sulfate 1 INHALER inhaler 1 - 2 puff INHALATION Q6H PRN PRN (Reason: Asthma) RF: 0 losartan 100 mg tablet 100 mg PO DAILY Qty: 0 RF: 0 insulin aspart U-100 100 UNITS/ML insulin pen 8 unit SC TID Qty: 0 RF: 0 insulin detemir U-100 100 UNIT/ML insulin pen 15 unit SQ BID Qty: 0 RF: 0 acetaminophen 500 mg Tablet 1,000 mg PO BID PRN (Reason: Pain) RF: 0 ascorbic acid (vitamin C) 500 mg Tablet 500 mg PO DAILY RF: 0 cranberry 1,000 mg Capsule 2,000 mg PO DAILY RF: 0 cholecalciferol (vitamin D3) 25 mcg (1,000 unit) Capsule 25 mcg PO DAILY RF: 0 calcium-vitamin D3-vitamin K 500-100-40 mg-unit-mcg Tablet,Chewable 1 tab PO DAILY RF: 0 Black Elderberry 1,000 mg PO/SL DAILY RF: 0 dexamethasone 6 mg tablet 6 mg PO DAILY RF: 0 amlodipine 2.5 mg tablet 2.5 mg PO DAILY RF: 0 Mucinex 1,200 mg tablet extended release 12hr 1,200 mg PO BID RF: 0 Eliquis 2.5 mg tablet 2.5 mg PO BID RF: 0 isosorbide mononitrate 30 mg tablet extended release 24 hr 15 mg PO DAILY Qty: 45 RF: 3 Held leflunomide 10 MG tablet 10 mg PO DAILY RF: 0 Hold Instructions: Resume on 05/16/21. Referrals / Follow Up: Zulma Corral MD [Primary Care Provider] - Within 2 Weeks Disposition Disposition (needs filled in before D/C Order can be placed): Home Health Service
--- NOTE | 2021-05-10 14:28 | DS.PCM_ITS ---
Providers Date of Admission: 05/05/21 Primary Care Physician: Dr. Zulma Corral MD Consultations 05/06/21 14:36 Consult: Infectious Disease Routine Consulting Provider: Alessandro Guido Reason for Consult: acute hypoxic respiratory failure due to covid 19 pneumonia EMERGENT Consult: No Notified: Yes Date Notified: 05/06/21 Time Notified: 14:44 Method of Notification: Text 05/06/21 14:39 Consult: Underwriting Clerks Supervisor / Pulmonary Medicine Routine Consulting Provider: Pulmonary Medicine gaudencio Hancock Reason for Consult: acute hypoxic respiratory due to covid. EMERGENT Consult: No Notified: Yes Date Notified: 05/06/21 Time Notified: 14:39 Method of Notification: Text Reason For Visit: COVID, DEHYDRATION, FAILURE TO THRIVE, HYPOIXA, Diagnosis Discharge Diagnosis (1) Pneumonia due to COVID-19 virus: Status: Acute Code(s): U07.1 - COVID-19; J12.82 - Pneumonia due to coronavirus disease 2019 (2) Hypoxia: Status: Acute Code(s): R09.02 - Hypoxemia (3) Adult failure to thrive: Status: Acute Code(s): R62.7 - Adult failure to thrive Medications at Discharge Home Medications multivitamin 1 tab PO DAILY 05/30/17 pantoprazole 40 mg tablet,delayed release 40 mg PO DAILY 05/30/17 metoprolol succinate 25 mg tablet,extended release 24 hr 12.5 mg PO BID tab 01/11/18 citalopram 20 mg PO DAILY 04/28/20 leflunomide 10 mg PO DAILY 04/28/20 tramadol 50 mg PO BID PRN PRN 04/28/20 albuterol sulfate 1 - 2 puff INHALATION Q6H PRN PRN 05/28/20 isosorbide mononitrate 30 mg tablet,extended release 24 hr 15 mg PO DAILY #45 tab 06/08/20 aspirin 81 mg tablet,delayed release 81 mg PO DAILY 06/17/20 simvastatin 40 mg tablet 40 mg PO QHS tab 04/07/21 insulin aspart U-100 8 unit SC TID #0 ml 05/03/21 insulin detemir U-100 15 unit SQ BID #0 ml 05/03/21 losartan 100 mg PO DAILY #0 tab 05/03/21 Black Elderberry 1,000 mg PO/SL DAILY 05/05/21 Eliquis 2.5 mg PO BID 05/05/21 Mucinex 1,200 mg PO BID 05/05/21 acetaminophen 1,000 mg PO BID PRN 05/05/21 amlodipine 2.5 mg PO DAILY 05/05/21 ascorbic acid (vitamin C) 500 mg PO DAILY 05/05/21 calcium-vitamin D3-vitamin K 1 tab PO DAILY 05/05/21 cholecalciferol (vitamin D3) 25 mcg PO DAILY 05/05/21 cranberry 2,000 mg PO DAILY 05/05/21 dexamethasone 6 mg PO DAILY 05/05/21 dexamethasone 6 mg PO DAILY #5 tab 05/10/21 sulfamethoxazole-trimethoprim [Bactrim] 1 tab PO BID #14 tab 05/10/21 Hospital Course Operations None Procedures None Summary of Care Provided Minutes Spent on Discharge: 32 Hospital Course: 85-year-old female presents with shortness of breath. This pa tient second admission for COVID-19.. Patient was treated with dexamethasone. Patient sputum culture came back showing methicillin sensitive staph aureus that was trimethoprim/sulfamethoxazole upon discharge. Overall patient is doing well. Patient will require oxygen upon discharge. Patient will require 4 L with activity and 2 L at rest. She was not 93 and 96% pulse ox respectively. Patient be discharged home with home care. Physical Exam Resp normal respiratory effort and no retractions Cardio regular rate, regular rhythm, S1 normal heart sound and S2 normal heart sound GI normal to inspection, nondistended, normoactive bowel sounds, soft to palpation and non-tender Extremity normal to inspection and full ROM Skin no rashes or lesions noted Neuro oriented x3 Sensorium / Orientation: awake, alert and oriented to person Medical Records Data Medical Nutrition Assessment Dietitian: Malnutrition Criteria Met Start: 05/06/21 13:04 Freq: Status: Active Protocol: Document 05/06/21 13:04 (Rec: 05/06/21 13:04 [id number]) Nutrition Malnutrition Evidence of Malnutrition Exists Yes Malnutrition (severe): Acute Illness/Injury Evidenced By Suboptimal Energy Intake ( Severe),Weight Loss (Severe) Clinical Problem Acute Disease or Injury Related Malnutrition Etiology severe, acute malnutrition r/t inadequate energy intake w/ increased energy needs d/t COVID-19 Signs/Symptoms as evidenced by unintentional wt loss of 5.7#/5.3% <2 weeks, estimated PO intake meeting < 50% of estimated energy needs >2 weeks Status Active Problem Recommendation Dietitian Recommendations/Changes regular diet, 120mL glucerna ONS w/ meals d/t acute malnutrition. Weight / BMI Weight Weight: 47.5 kg Body Mass Index (BMI) 20.9 ABG / Lab / Microbiology Data Result Diagrams: 05/10/21 06:00 05/07/21 08:43 Laboratory: Laboratory Results - last 24 hr 05/09/21 17:16: POC Glucose 248 H 05/09/21 21:32: POC Glucose 318 H 05/10/21 06:00: WBC 19.0 H, RBC 3.82 L, Hgb 11.0 L, Hct 33.4 L, MCV 87.4, MCH 28.8, MCHC 32.9, RDW Std Deviation 41.1, RDW Coeff of Yaneli 13.0, Plt Count 291, MPV 11.6, Immature Gran % (Auto) 1.800 H, Neut % (Auto) 84.3 H, Lymph % (Auto) 6.9 L, Edgar % (Auto) 6.6, Eos % (Auto) 0.2, Baso % (Auto) 0.2, Absolute Neuts (auto) 16.0 H, Absolute Lymphs (auto) 1.31, Nucleated RBC % 0 05/10/21 08:43: POC Glucose 163 H 05/10/21 11:17: POC Glucose 252 H Microbiology: Microbiology 05/05/21 21:09 Sputum, Expectorated/Coughed Gram Stain - Final 05/05/21 21:09 Sputum, Expectorated/Coughed Respiratory Culture - Final Staphylococcus aureus 05/05/21 20:21 Mucosa - Nasopharyngeal Respiratory Panel (PCR) - Final D/C Instructions Discharge Diet: Low fat / Low cholesterol Additional Activity Instructions: Self isolate for at least 20 days since symptoms began 04/21- AND at least one day (24 hours) have passed since resolution of fever without the use of fever-reducing agents AND improvement of symptoms (e.g., cough, shortness of breath) When around people in the same room, wear a face mask. Individuals also in the room should wear a mask. If possible, use a different bathroom and bedroom. Perf orm adequate hand hygiene. Avoid sharing dishes, glasses, etc. Call your doctor if your incision/area has: Continuous Slow Oozing Meaningful Use Info Meaningful Use Diagnoses (Choose all that apply): None applicable Discharge Plan Admission Admit Date/Time: 05/05/21 16:30 Primary Reason for Your Visit: COVID 19 Attending Provider: Burak Curtis Primary Care Provider: Zulma Corral Consulting Providers: Ned Petersen ; Lawrence Church ; Chyna Styles [employer]PA[employer] ; Alessandro Guido Discharge Orders/Prescriptions Prescriptions: New dexamethasone 6 mg tablet 6 mg PO DAILY Qty: 5 RF: 0 sulfamethoxazole-trimethoprim [Bactrim] 400-80 mg tablet 1 tab PO BID Qty: 14 RF: 0 Continued pantoprazole 40 mg tablet,delayed release (DR/EC) 40 mg PO DAILY RF: 0 multivitamin tablet 1 tab PO DAILY RF: 0 metoprolol succinate 25 mg tablet extended release 24 hr 12.5 mg PO BID RF: 0 aspirin 81 mg tablet,delayed release (DR/EC) 81 mg PO DAILY RF: 0 tramadol 50 MG tablet 50 mg PO BID PRN PRN (Reason: Pain 1-10 Or Fever) RF: 0 citalopram 20 MG tablet 20 mg PO DAILY RF: 0 simvastatin 40 mg tablet 40 mg PO QHS RF: 0 albuterol sulfate 1 INHALER inhaler 1 - 2 puff INHALATION Q6H PRN PRN (Reason: Asthma) RF: 0 losartan 100 mg tablet 100 mg PO DAILY Qty: 0 RF: 0 insulin aspart U-100 100 UNITS/ML insulin pen 8 unit SC TID Qty: 0 RF: 0 insulin detemir U-100 100 UNIT/ML insulin pen 15 unit SQ BID Qty: 0 RF: 0 acetaminophen 500 mg Tablet 1,000 mg PO BID PRN (Reason: Pain) RF: 0 ascorbic acid (vitamin C) 500 mg Tablet 500 mg PO DAILY RF: 0 cranberry 1,000 mg Capsule 2,000 mg PO DAILY RF: 0 cholecalciferol (vitamin D3) 25 mcg (1,000 unit) Capsule 25 mcg PO DAILY RF: 0 calcium-vitamin D3-vitamin K 500-100-40 mg-unit-mcg Tablet,Chewable 1 tab PO DAILY RF: 0 Black Elderberry 1,000 mg PO/SL DAILY RF: 0 dexamethasone 6 mg tablet 6 mg PO DAILY RF: 0 amlodipine 2.5 mg tablet 2.5 mg PO DAILY RF: 0 Mucinex 1,200 mg tablet extended release 12hr 1,200 mg PO BID RF: 0 Eliquis 2.5 mg tablet 2.5 mg PO BID RF: 0 isosorbide mononitrate 30 mg tablet extended release 24 hr 15 mg PO DAILY Qty: 45 RF: 3 Held leflunomide 10 MG tablet 10 mg PO DAILY RF: 0 Hold Instructions: Resume on 05/16/21. Referrals / Follow Up: Zulma Corral MD [Primary Care Provider] - Within 2 Weeks (Please call to set up an appointment. ) Disposition Disposition (needs filled in before D/C Order can be placed): Home Health Service Charges/Coding Visit Charges Inpatient E&M: 27049 Disch Hosp
== END 2021-05-10 16:25 | disposition home health service (06) | DRG 177 ==
LOC: ED 15:26 → PCU 05-06 07:25
PROVIDERS: Student in an Organized Health Care Education/Training Program; Admitting Provider Family Medicine; Emergency Provider Emergency Medicine; PCP Internal Medicine
DX: U07.1 COVID-19 (principal); J12.82 Pneumonia due to coronavirus disease 2019; J96.01 Acute respiratory failure with hypoxia; E43 Unspecified severe protein-calorie malnutrition; J15.9 Unspecified bacterial pneumonia; J44.0 Chronic obstructive pulmonary disease with (acute) lower respiratory infection; R62.7 Adult failure to thrive; A49.01 Methicillin susceptible Staphylococcus aureus infection, unspecified site; M06.9 Rheumatoid arthritis, unspecified; E11.9 Type 2 diabetes mellitus without complications; I10 Essential (primary) hypertension; E78.5 Hyperlipidemia, unspecified; I25.10 Atherosclerotic heart disease of native coronary artery without angina pectoris; F41.9 Anxiety disorder, unspecified; F32.A Depression, unspecified; K21.9 Gastro-esophageal reflux disease without esophagitis; Z68.20 Body mass index [BMI] 20.0-20.9, adult; Z95.5 Presence of coronary angioplasty implant and graft; E78.00 Pure hypercholesterolemia, unspecified; G47.30 Sleep apnea, unspecified; E86.0 Dehydration; I25.2 Old myocardial infarction; Z79.01 Long term (current) use of anticoagulants; Z79.4 Long term (current) use of insulin; Z80.3 Family history of malignant neoplasm of breast; Z82.49 Family history of ischemic heart disease and other diseases of the circulatory system; Z87.891 Personal history of nicotine dependence; Z98.51 Tubal ligation status; Z86.73 Personal history of transient ischemic attack (TIA), and cerebral infarction without residual deficits
CPT/HCPCS: 31720; 36415; 71045; 80048; 80053; 80076; 82728; 82962; 83615; 83880; 84145; 84484; 85025; 85379; 86140; 87070; 87077; 87186; 87205; 87633; 93005; 93970; 94640; 94667; 94762; 97110; 97162; 97166; 97530; 97535; 99285; J7030; A4216

== ENCOUNTER 2021-06-11 10:00 | Outpatient (RCR) | payer MEDICARE, OTHER, SELFPAY ==
[2021-06-04 10:04] VITALS: BP 148/62; PULSE 82; TEMP 36.2
--- NOTE | 2021-06-04 14:35 | HP.PCM_ITS ---
History of Present Illness Date of Service: 06/04/21 Chief Complaint: buttock ulcers and R ischial ulcers History of Wound: The patient is a pleasant 85-year-old female who [facility]) for evaluation of her bilateral buttock ulcers and right ischial ulcers. The patient has a past medical history significant for insulin-dependent type 2 diabetes mellitus, essential hypertension, coronary artery disease (s/p stent), hypercholesterolemia, and COVID-19 pneumonia. She does not use tobacco. She is allergic to metronidazole and oxycodone. In late 2020, the patient developed COVID-19 infection and subsequent pneumonia. She was hospitalized twice for this condition. She spent a total of 11 days in the hospital. She was discharged from the hospital approximately 3 weeks ago. She was discharged on oxygen, and is currently being weaned off of oxygen. During her hospitalization, she developed ulcers of the bilateral buttocks and right ischium. She was given a pink salve to apply to the buttocks, but does not recall the name of this product. She has not been applying any dressings to the buttocks. She was treated with antibiotics while in the hospital, but has not been treated with any antibiotics since that time. The patient denies fever, chills, general malaise, or poor appetite. The patient has not had increased redness, swelling, or purulent/malodorous drainage from affected area. Her family has been assisting with showering and wound care daily. She otherwise is able to provide self-care. She does report intermittent episodes of bowel and urinary incontinence, and uses incontinence pads to manage this. Her mobility has significantly improved since her hospital discharge. She is able to ambulate with a walker. She is using a wheelchair for trips outside of her home. She has an offloading cushion, which she uses when seated in her recliner at home. She is able to sleep in a bed at night, and typically uses a small pillow for offloading. 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) Abnormal stress test Acute respiratory failure with hypoxia Arteriovenous fistula, acquired, of heart Asthma Atherosclerosis of [place] coronary artery of [place] heart without angina pec toris Bilateral carotid artery stenosis Cerebral artery occlusion Chest pain COPD (chronic obstructive pulmonary disease) Coronary artery anomaly Debility Diabetes Epigastric pain Essential (primary) hypertension Falls Former smoker GERD (gastroesophageal reflux disease) Insulin dependent type 2 diabetes mellitus Limited mobility Presence of stent in coronary artery (~02/27/18) Pure hypercholesterolemia Sleep apnea Spinal stenosis Stage II pressure ulcer of left buttock Stage II pressure ulcer of right buttock Stage II pressure ulcer of sacral region TIA (transient ischemic attack) Type 2 diabetes mellitus with other skin ulcer Type 2 diabetes mellitus, with long-term current use of insulin Home Medications multivitamin 1 tab PO DAILY 05/30/17 [History Last Taken 1 Week Ago ~04/28/21] pantoprazole 40 mg tablet,delayed release 40 mg PO DAILY 05/30/17 [History Last Taken 05/05/21] metoprolol succinate 25 mg tablet,extended release 24 hr 12.5 mg PO BID tab [History Last Taken 05/05/21] citalopram 20 mg PO DAILY 04/28/20 [History Last Taken 05/05/21] leflunomide 10 mg PO DAILY 04/28/20 [History Last Taken 05/05/21] tramadol 50 mg PO BID PRN PRN 04/28/20 [History Last Taken 05/04/21] albuterol sulfate 1 - 2 puff INHALATION Q6H PRN PRN 05/28/20 [History Last Taken Unknown] isosorbide mononitrate 30 mg tablet,extended release 24 hr 15 mg PO DAILY #45 tab 06/08/20 [Rx Last Taken Unknown] aspirin 81 mg tablet,delayed release 81 mg PO DAILY 06/17/20 [History Last Taken Unknown] simvastatin 40 mg tablet 40 mg PO QHS tab 04/07/21 [History Last Taken 05/04/21] insulin aspart U-100 8 unit SC TID #0 ml 05/03/21 [Rx Last Taken 05/05/21] insulin detemir U-100 15 unit SQ BID #0 ml 05/03/21 [Rx Last Taken 05/05/21] losartan 100 mg PO DAILY #0 tab 05/03/21 [Rx Last Taken 05/05/21] Black Elderberry 1,000 mg PO/SL DAILY 05/05/21 [History Last Taken 05/04/21] Eliquis 2.5 mg PO BID 05/05/21 [History Last Taken 05/04/21] Mucinex 1,200 mg PO BID 05/05/21 [History Last Taken 05/04/21] acetaminophen 1,000 mg PO BID PRN 05/05/21 [History Last Taken 05/05/21] amlodipine 2.5 mg PO DAILY 05/05/21 [History Last Taken 05/05/21] ascorbic acid (vitamin C) 500 mg PO DAILY 05/05/21 [History Last Taken 05/04/21] calcium-vitamin D3-vitamin K 1 tab PO DAILY 05/05/21 [History Last Taken 05/05/21] cholecalciferol (vitamin D3) 25 mcg PO DAILY 05/05/21 [History Last Taken 05/04/21] cranberry 2,000 mg PO DAILY 05/05/21 [History Last Taken 05/04/21] dexamethasone 6 mg PO DAILY 05/05/21 [History Last Taken 05/05/21] dexamethasone 6 mg PO DAILY #5 tab 05/10/21 [Rx Last Taken Unknown] sulfamethoxazole-trimethoprim [Bactrim] 1 tab PO BID #14 tab 05/10/21 [Rx Last Taken Unknown] Lactobacillus acidophilus [Florajen Acidophilus] 10 mg PO DAILY 06/04/21 [History Last Taken Unknown] clobetasol 06/04/21 [History Last Taken Unknown] clobetasol 1 applic TOPICAL BID 06/04/21 [History Last Taken Unknown] estradiol 1 appful VAGINAL DAILY 06/04/21 [History Last Taken Unknown] fluticasone furoate mcg INHALATION 06/04/21 [History Last Taken Unknown] guaifenesin 1,200 mg PO BID PRN 06/04/21 [History Last Taken Unknown] Allergy/AdvReac Type Severity Reaction Status Date / Time metronidazole [From Flag] Allergy Other Verified 05/05/21 12:58 oxycodone HCl Allergy Other Verified 05/05/21 12:58 [From OxyContin] Family History Father CAD (coronary artery disease) Myocardial infarction Mother Cancer Sister Breast cancer Surgical History H/O tubal ligation History of coronary artery stent placement History of cystoscopy (06/03/20) Hx of cardiac cath Presence of coronary angioplasty implant and graft (~02/27/18) S/p bilateral carpal tunnel release Social History (Updated 05/05/21 @ 20:30 by Leona Simon) household members: none housing: apartment current occupational status: retired leisure activities: games and other Smoking Status: Former smoker how long ago did patient quit smokin years ago, when smoking 1/4-1/2 ppd maximum. second hand exposure: No alcohol intake: never substance use type: does not use caffeine: Yes Type: coffee Number of servings: 2 ROS Constitutional Constitutional: Denies chills, fever(s) or night sweats Eyes Eyes: Denies change in vision or double vision ENT HEENT: Denies lip swelling or tongue swelling Cardiovascular Cardiovascular: Denies chest pain, leg edema or palpitations Respiratory/Chest Respiratory/Chest: Reports shortness of breath at rest and shortness of breath with exertion Gastrointestinal Gastrointestinal: Denies diarrhea, nausea or vomiting Genitourinary Genitourinary: Denies dysuria or hematuria Musculoskeletal Musculoskeletal: Reports abnormal gait; Denies extremity pain, muscle weakness, numbness or tingling Integumentary Integumentary: Reports wounds; Denies rash Neurologic Neurologic: Reports abnormal gait; Denies abnormal speech or focal weakness Endocrine Endocrinology: Denies cold intolerance, heat intolerance, polydipsia or polyuria Hematologic/Lymphatic Hematologic/Lymphatic: Denies easy bleeding or easy bruising Vital Signs Vital Signs Vital Signs: 06/04/21 10:04 Temperature 97.2 F L Temperature Source Temporal Pulse Rate 82 Blood Pressure 148/62 H Blood Pressure Mean 90 Blood Pressure Source Monitor Physical Exam Const alert, no apparent distress and healthy appearing General Appearance: cooperative, comfortable and well kempt HEENT Head and Scalp: normocephalic and atraumatic Eyes EOMs intact bilaterally Neck supple and no JVD Resp normal respiratory effort, normal air movement and no use of accessory muscles Auscultation: clear to auscultation bilaterally; Negative for crackles, rales, rhonchi or wheezes Cardio regular rate and regular rhythm GI normal to inspection, nondistended, normoactive bowel sounds Extremity normal capillary refill and no clubbing, cyanosis or edema Skin Rashes: no rashes Wounds: wounds noted No malodorous Wound Narrative: Scattered ulcers of the bilateral buttocks and right ischium with small to moderate amounts of dry, devitalized tissue. Subcutaneous layer exposed. No tunneling, undermining, or probing to bone. No purulent or malodo viki drainage. No periulcer erythema, warmth, tenderness, or swelling. Neuro oriented x3, moves all extremities and no focal motor deficits Psych mental status grossly normal, cooperative and affect normal Debridement Note Debridement Note Wound debrided: Right buttock Laterality: Right Wound Grade/Stage: Stage II Type of Debridement: Excisional debridement Anesthesia Used: 4% Lidocaine Solution Percentage of wound debrided: 100 Instrument Used: 3mm curette Tissue Removed: Slough and devitalized tissue Severity: Fat Layer Exposed Amount of bleeding with debridement: Mild Bleeding Controlled with: Pressure Patient tolerated procedure: Patient tolerated procedure well Post-Debridement Measurements and Additional Note: Post-Debridement Measurements/Treatment - Nurse 1 - General Ulcer Assessment Start: 06/04/21 09:13 Freq: Status: Active Protocol: MICHELLE Activity Type Activity Date Activity User E-Sign Co-Sign Detail Recorded Client Recorded Date Recorded By Document 06/04/21 10:04 ROSIE [id number] 06/04/21 10:10 ROSIE 06/04/21 10:04 - Today's Visit Information Type of service Initial Visit Arrival Mode Wheelchair Patient Identification Verified (Name & Yes ) Patient Requires Transmission-Based No Precautions Safety Precautions NA Vital Signs Temperature (97.8 F-99.1 F) 97.2 F L Temperature Source Temporal Pulse Rate (60-100) 82 Pulse Location Monitor Blood Pressure (90/60-120/80) 148/62 H Blood Pressure Mean 90 Source Monitor History Since Last Visit- (Skip if this is Patient's initial visit) Have you changed medications since your No last visit? Any new allergies or adverse reactions No Had a fall/change in ADL's that may No increase risk of falls Signs or symptoms of abuse and/or No neglect since last visit Have you been in the hospital since your No last visit? Has dressing in place as prescribed No Has compression in place as prescribed N/A Has offloadiing in place as prescribed N/A Experienced any changes in pain level or No management Left Footwear Regular Shoe Right Footwear Regular Shoe Pain Scale: 0-10 Numeric Is Patient Pain Free? Yes WC - Nurse 1 - General Ulcer Measurement Start: 06/04/21 09:13 Freq: Status: Active Protocol: Activity Type Activity Date Activity User E-Sign Co-Sign Detail Recorded Client Recorded Date Recorded By Document 06/04/21 10:04 ROSIE [id number] 06/04/21 10:10 AK 06/04/21 10:04 Wound Center Nurse 1 #3 Left buttock -Current Size (cm) - Length 0.5 -Current Size (cm) - Width 0.1 -Current Size (cm) - Depth 0.1 -Total Square Cm 0.05 -Photo Taken No -Tunneling No -Undermining/Tunneling No -Circular Undermining No -Change in Wound Grade/Stage No -Exudate Amt None Present -Granulation Amt None Present (0 %) -Granulation Quality N/A -Slough/Fibrin No -Necrosis Amt None Present (0 %) -Structure Exposed N/A -Texture (Jazmine-wound Skin Appearance) No Abnormality, Assessed -Moisture (Jazmine-wound Skin Appearance) No Abnormality, Assessed -Color (Jazmine-wound Skin Appearance) No Abnormality, Assessed -Temperature (Jazmine-wound Skin No Abnormality Appearance) (Pt Warm) -Ulcer Cleansing Rinsed/ Irrigated with Saline -Foul Odor after Cleansing No -Anesthetic Used 4% Lidocaine Solution #2 Right ischial cluster -Combined with other wound No -Current Size (cm) - Length 7 -Current Size (cm) - Width 7 -Current Size (cm) - Depth 0.1 -Total Square Cm 49 -Photo Taken No -Epithelialization None Present -Tunneling No -Undermining/Tunneling No -Circular Undermining No -Exudate Amt None Present -Wound Margin Distinct, Outline Attached -Granulation Amt None Present (0 %) -Granulation Quality N/A -Slough/Fibrin No -Necrosis Amt Medium (34-66%) -Necrotic Tissue Type Eschar -Structure Exposed N/A -Texture (Jazmine-wound Skin Appearance) No Abnormality, Assessed -Moisture (Jazmine-wound Skin Appearance) No Abnormality, Assessed -Color (Jazmine-wound Skin Appearance) No Abnormality, Assessed -Temperature (Jazmine-wound Skin No Abnormality Appearance) (Pt Warm) -Tenderness on Palpation (Jazmine-wound No Skin Appearance) -Ulcer Cleansing Rinsed/ Irrigated with Saline -Foul Odor after Cleansing No -Anesthetic Used 4% Lidocaine Solution #1 Right Buttock -Combined with other wound No -Current Size (cm) - Length 0.5 -Current Size (cm) - Width 0.5 -Current Size (cm) - Depth 0.1 -Total Square Cm 0.25 -Photo Taken No -Tunneling No -Undermining/Tunneling No -Circular Undermining No -Change in Wound Grade/Stage No -Exudate Amt None Present -Wound Margin Distinct, Outline Attached -Granulation Amt None Present (0 %) -Granulation Quality N/A -Slough/Fibrin No -Necrosis Amt None Present (0 %) -Structure Exposed N/A -Texture (Jazmine-wound Skin Appearance) No Abnormality, Assessed -Moisture (Jazmine-wound Skin Appearance) No Abnormality, Assessed -Color (Jazmine-wound Skin Appearance) No Abnormality, Assessed -Temperature (Jazmine-wound Skin No Abnormality Appearance) (Pt Warm) -Tenderness on Palpation (Jazmine-wound No Skin Appearance) -Ulcer Cleansing Rinsed/ Irrigated with Saline -Foul Odor after Cleansing No -Anesthetic Used 4% Lidocaine Solution Lower Limb Edema Present No WC - Nurse 2 - General Ulcer CM Notes Start: 06/04/21 09:13 Freq: Status: Active Protocol: Activity Type Activity Date Activity User E-Sign Co-Sign Detail Recorded Client Recorded Date Recorded By Document 06/04/21 13:15 SANDY [id number] 06/04/21 13:20 PL 06/04/21 13:15 Wound Center Nurse 2 #3 Left buttock -Time 09:50 -Correct Patient Yes -Correct Side, Site, Position Yes -Correct Procedure Yes -Procedure Performed Yes -Type of Procedure Debridement -Clinical Debridement Subcutaneous -Tissue Removed Subcutaneous -Post Debridement (cm) - Length 0.7 -Post Debridement (cm) - Width 0.9 -Post Debridement (cm) - Depth 0.1 -Total Square (Post) (cm) 0.63 -Area of Debridement (cm) - Length 0.7 -Area of Debridement (cm) - Width 0.9 -Total Square (Area) (cm) 0.63 -Tunneling No -Undermining/Tunneling No -Circular Undermining No -Wound/Ulcer Outcome Not Healed -Ulcer Cleansing Rinsed/ Irrigated with Saline -Foul Odor after Cleansing No -Bioengineered Tissue No -Bleeding Controlled with Pressure -Treatment Response Procedure Tolerated Well -Debridement - Subq, 1st 20sq cm No #2 Right ischial cluster -Time 09:50 -Correct Patient Yes -Correct Side, Site, Position Yes -Correct Procedure Yes -Procedure Performed Yes -Type of Procedure Debridement -Clinical Debridement Subcutaneous -Tissue Removed Subcutaneous -Post Debridement (cm) - Length 7.0 -Post Debridement (cm) - Width 7.0 -Post Debridement (cm) - Depth 0.1 -Total Square (Post) (cm) 49.00 -Area of Debridement (cm) - Length 2.0 -Area of Debridement (cm) - Width 2.0 -Total Square (Area) (cm) 4.00 -Tunneling No -Undermining/Tunneling No -Circular Undermining No -Wound/Ulcer Outcome Not Healed -Ulcer Cleansing Rinsed/ Irrigated with Saline -Foul Odor after Cleansing No -Bioengineered Tissue No -Bleeding Controlled with Pressure -Treatment Response Procedure Tolerated Well -Debridement - Subq, 1st 20sq cm No #1 Right Buttock -Time 09:50 -Correct Patient Yes -Correct Side, Site, Position Yes -Correct Procedure Yes -Procedure Performed Yes -Type of Procedure Debridement -Clinical Debridement Subcutaneous -Tissue Removed Subcutaneous -Post Debridement (cm) - Length 1.3 -Post Debridement (cm) - Width 5.0 -Post Debridement (cm) - Depth 0.1 -Total Square (Post) (cm) 6.50 -Area of Debridement (cm) - Length 1.3 -Area of Debridement (cm) - Width 5.0 -Total Square (Area) (cm) 6.50 -Tunneling No -Undermining/Tunneling No -Circular Undermining No -Wound/Ulcer Outcome Not Healed -Ulcer Cleansing Rinsed/ Irrigated with Saline -Foul Odor after Cleansing No -Bioengineered Tissue No -Bleeding Controlled with Pressure -Treatment Response Procedure Tolerated Well -Debridement - Subq, 1st 20sq cm Yes Pain Scale: 0-10 Numeric Is Patient Pain Free? Yes WC - Nurse 3 - General Ulcer D/C NN Start: 06/04/21 09:13 Freq: Status: Active Protocol: Activity Type Activity Date Activity User E-Sign Co-Sign Detail Recorded Client Recorded Date Recorded By Document 06/04/21 10:25 ML [id number] 06/04/21 10:28 ML 06/04/21 10:25 Wound Care Nurse 3 #3 Left buttock -Ulcer Cleansing Rinsed/ Irrigated with Saline -Primary Dressing Applied Promogran Cady Matter -Other Dressing SUPER ABSORB -Promogran Cady Matter 1 #2 Right ischial cluster -Ulcer Cleansing Rinsed/ Irrigated with Saline -Foul Odor after Cleansing No -Primary Dressing Applied Promogran Cady Matter -Other Dressing SUPER ABSORB -Promogran Cady Matter 0 #1 Right Buttock -Ulcer Cleansing Rinsed/ Irrigated with Saline -Primary Dressing Applied Promogran Cady Matter -Other Dressing SUPER ABSORB -Promogran Cady Matter 0 Pain Scale: 0-10 Numeric Is Patient Pain Free? Yes Additional Wound Wound debrided: Left buttock Laterality: Left Wound Grade/Stage: Stage II Type of Debridement: Excisional debridement Anesthesia Used: 4% Lidocaine Solution Depth: in the subcutaneous layer Percentage of wound debrided: 100 Instrument Used: 3mm curette Tissue Removed: Slough and devitalized tissue Severity: Fat Layer Exposed Amount of bleeding with debridement: Mild Bleeding Controlled with: Pressure Patient tolerated procedure: Patient tolerated procedure well Additional Wound Wound debrided: Right ischial ulcer cluster Laterality: Right Wound Grade/Stage: Stage II Type of Debridement: Excisional debridement Depth: in the subcutaneous layer Percentage of wound debrided: 100 Instrument Used: 3mm curette Tissue Removed: Slough and devitalized tissue Severity: Fat Layer Exposed Amount of bleeding with debridement: Mild Bleeding Controlled with: Pressure Patient tolerated procedure: Patient tolerated procedure well Charges/Coding Visit Charges Office Visits / Consults: [id number] OV L5 Est Procedures Integumentary [id number]: [id number] Ariana subq tissue 20 sq cm/< Assessment/Plan Assessment/Plan (1) Stage II pressure ulcer of right buttock: CODE(S): L89.312 - Pressure ulcer of right buttock, stage 2 (2) Stage II pressure ulcer of left buttock: CODE(S): L89.322 - Pressure ulcer of left buttock, stage 2 (3) Stage II pressure ulcer of sacral region: CODE(S): L89.152 - Pressure ulcer of sacral region, stage 2 (4) Type 2 diabetes mellitus with other skin ulcer: CODE(S): E11.622 - Type 2 diabetes mellitus with other skin ulcer; L98.499 - Non-pressure chronic ulcer of skin of other sites with unspecified severity QUALIFIERS: Diabetes mellitus senior care insulin use: with senior care use Qualified Code(s): E11.622 - Type 2 diabetes mellitus with other skin ulcer; 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 Cady applied to the ulcers of the bilateral buttocks and right ischium. Covered with a silicone dressing. At home wound-care instructions: Change Cady dressing once daily or more frequently as needed due to contamination. Wash wounds daily with antibacterial soap and water, rinse and dry thoroughly before each dressing change. Cover with silicone dressing. As a barrier protectant, apply A&D ointment to the bilateral buttocks following each void. Off-loading: The patient was instructed to avoid pressure and friction on the affected areas. Instructions on offloading while seated and while sleeping were given to patient and granddaughter. Reposition every 1 hour at minimum. When seated, feet should be elevated at chest level. Frequent ambulation is encouraged. Diet: Patient encouraged to increase protein intake while taking caution to avoid high carbohydrate and/or sugar intake. Nick samples given today. Labs/cultures/imaging: Cultures deferred today due to the absence of clinical signs or symptoms of infection. Labs reviewed as annotated above. No further testing ordered at this time; we will continue to monitor. Follow-up: Return to clinic in 1 week for re-evaluation. Return sooner or report to the emergency room should symptoms worsen, or new symptoms arise. Note: [employer] speech recognition blueprint trimmer software was used to create portions of this document. Sound-alike and misspelled words, as well as other blueprint trimmer errors may be contained in the documentation. Greater than 45 minutes were spent by me on today's visit. This time includes coordinating care, reviewing labs/records/history, interpretation of test results, and counseling patient/family. This also includes time spent with the patient for exam, treatment plan, and education as well as documenting clinical information in the electronic health record.
[2021-06-11 10:19] VITALS: BP 157/67; PULSE 81; RESP 20; TEMP 35.6
--- NOTE | 2021-06-11 12:32 | PCM.WC.PN ---
History of Present Illness Date of Service: 06/11/21 Chief Complaint: buttock ulcers and R ischial ulcers History of Wound: The patient is a pleasant 85-year-old female who [facility] for evaluation of her bilateral buttock ulcers and right ischial ulcers. The patient has a past medical history significant for insulin-dependent type 2 diabetes mellitus, essential hypertension, coronary artery disease (s/p stent), hypercholesterolemia, and COVID-19 pneumonia. She does not use tobacco. She is allergic to metronidazole and oxycodone. In late 2020, the patient developed COVID-19 infection and subsequent pneumonia. She was hospitalized twice for this condition. She spent a total of 11 days in the hospital. She was discharged from the hospital approximately 3 weeks ago. She was discharged on oxygen, and is currently being weaned off of oxygen. During her hospitalization, she developed ulcers of the bilateral buttocks and right ischium. She was given a pink salve to apply to the buttocks, but does not recall the name of this product. She has not been applying any dressings to the buttocks. She was treated with antibiotics while in the hospital, but has not been treated with any antibiotics since that time. The patient denies fever, chills, general malaise, or poor appetite. The patient has not had increased redness, swelling, or purulent/malodorous drainage from affected area. Her family has been assisting with showering and wound care daily. She otherwise is able to provide self-care. She does report intermittent episodes of bowel and urinary incontinence, and uses incontinence pads to manage this. Her mobility has significantly improved since her hospital discharge. She is able to ambulate with a walker. She is using a wheelchair for trips outside of her home. She has an offloading cushion, which she uses when seated in her recliner at home. She is able to sleep in a bed at night, and typically uses a small pillow for offloading. Labs were reviewed, significant for the following: CBC (05/10/2021): WBC 19.0 (H), RBC 3.82 (L), hemoglobin 11.0 (L), hematocrit 33.4 (L) POC glucose (05/10/2021): 252 (H) BMP (05/07/2021): Glucose 196 (H), BUN 38 (H), estimated GFR 63 CMP (05/06/2021): Glucose 278 (H) BUN 41 (H), estimated GFR 57 (L), sodium 135 (L) Progress of Wound: The patient's left gluteal and right ischial ulcers are healed today. She has 1 remaining ulcer of the right gluteal region. Overall improvement in size and appearance of ulcers. Patient has been compliant with the use of Cady dressing changes, though she ran out of supplies a couple of days ago. Supplies are to be obtained through home health care, as she is receiving nursing care once weekly. The patient has implemented protein supplementation. The patient denies fever, chills, general malaise, or poor appetite. The patient has not had increased redness, swelling, or purulent/malodorous drainage from affected area. Objective Data Objective Data Vital Signs: Vital Signs Temp Pulse Resp BP 96.0 F L 81 20 H 157/67 H 06/11/21 10:19 06/11/21 10:19 06/11/21 10:19 06/11/21 10:19 Weight: 109 lb 6 oz Charges/Coding Procedures Integumentary [id number]: [id number] Ariana subq tissue 20 sq cm/< Physical Exam Const alert, no apparent distress and healthy appearing General Appearance: cooperative, comfortable and well kempt HEENT Head and Scalp: normocephalic and atraumatic Eyes EOMs intact bilaterally Neck supple Resp normal respiratory effort, normal air movement and no use of accessory muscles Extremity normal capillary refill and no clubbing, cyanosis or edema Skin Rashes: no rashes Wounds: wounds noted No malodorous Wound Narrative: Single ulcer of the right buttock with subcutaneous layer exposed. No tunneling, undermining, or probing to bone. No purulent or malodorous drainage. No periulcer erythema, warmth, tenderness, or swelling. Neuro oriented x3, moves all extremities and no focal motor deficits Psych mental status grossly normal, cooperative and affect normal Debridement Note Debridement Note Wound debrided: Right buttock Laterality: Right Type of Debridement: Excisional debridement Anesthesia Used: 4% Lidocaine Solution Depth: in the subcutaneous layer Percentage of wound debrided: 100 Instrument Used: 3mm curette Tissue Removed: Slough and devitalized tissue Severity: Fat Layer Exposed Amount of bleeding with debridement: Mild Bleeding Controlled with: Pressure Patient tolerated procedure: Patient tolerated procedure well Post-Debridement Measurements and Additional Note: Post-Debridement Measurements/Treatment CB - Nurse 1 - General Ulcer Assessment Start: 06/04/21 09:13 Freq: Status: Active Protocol: MICHELLE Activity Type Activity Date Activity User E-Sign Co-Sign Detail Recorded Client Recorded Date Recorded By Document 06/04/21 10:04 AK [id number] 06/04/21 10:10 AK Document 06/11/21 10:19 GABRIELA [id number] 06/11/21 10:22 JF 06/04/21 06/11/21 10:04 10:19 BC - Today's Visit Information Type of service Initial Visit Follow-up Visit (Physician/EXTENSION SERVICE ADVISOR ) Arrival Mode Wheelchair Ambulatory, Wheelchair Patient Identification Verified (Name & Yes Yes ) Patient Requires Transmission-Based No No Precautions Safety Precautions NA Finger Stick Blood Sugar(mg/dl) (if 200 indicated): Blood Sugar Stated by Patient Height and Weight Weight 109 lb 6 oz Weight in Pounds 109.4 lbs Weight Measurement Method Standing Scale Vital Signs Temperature (97.8 F-99.1 F) 97.2 F L 96.0 F L Temperature Source Temporal Temporal Pulse Rate (60-100) 82 81 Pulse Location Monitor Monitor Respiratory Rate (12-18) 20 H Respiratory rate source Observation Blood Pressure (90/60-120/80) 148/62 H 157/67 H Blood Pressure Mean (mm Hg) 90 97 Source Monitor Monitor Position Sitting Blood Pressure Location Right Arm History Since Last Visit- (Skip if this is Patient's initial visit) Have you changed medications since your No No last visit? Any new allergies or adverse reactions No No Had a fall/change in ADL's that may No No increase risk of falls Signs or symptoms of abuse and/or No No neglect since last visit Have you been in the hospital since your No No last visit? Has dressing in place as prescribed No Yes Has compression in place as prescribed N/A N/A Has offloadiing in place as prescribed N/A N/A Experienced any changes in pain level or No No management Left Footwear Regular Shoe Regular Shoe Right Footwear Regular Shoe Regular Shoe Pain Scale: 0-10 Numeric Is Patient Pain Free? Yes Yes CB - Nurse 1 - General Ulcer Measurement Start: 06/04/21 09:13 Freq: Status: Active Protocol: Activity Type Activity Date Activity User E-Sign Co-Sign Detail Recorded Client Recorded Date Recorded By Document 06/04/21 10:04 ROSIE [id number] 06/04/21 10:10 ROSIE Document 06/11/21 10:19 GABRIELA [id number] 06/11/21 10:22 GABRIELA 06/04/21 06/11/21 10:04 10:19 Wound Center Nurse 1 #3 Left buttock -Combined with other wound No -Current Size (cm) - Length 0.5 0 -Current Size (cm) - Width 0.1 0 -Current Size (cm) - Depth 0.1 0 -Total Square Cm 0.05 0 -Photo Taken No Yes -Epithelialization Large 67-100% -Tunneling No No -Undermining/Tunneling No No -Circular Undermining No No -Change in Wound Grade/Stage No -Exudate Amt None Present -Granulation Amt None Present (0 %) -Granulation Quality N/A -Slough/Fibrin No -Necrosis Amt None Present (0 %) -Structure Exposed N/A -Texture (Jazmine-wound Skin Appearance) No Abnormality, Assessed -Moisture (Jazmine-wound Skin Appearance) No Abnormality, Assessed -Color (Jazmine-wound Skin Appearance) No Abnormality, Assessed -Temperature (Jazmine-wound Skin No Abnormality Appearance) (Pt Warm) -Ulcer Cleansing Rinsed/ Irrigated with Saline -Foul Odor after Cleansing No -Anesthetic Used 4% Lidocaine Solution #2 Right ischial cluster -Combined with other wound No No -Current Size (cm) - Length 7 0.1 -Current Size (cm) - Width 7 0.1 -Current Size (cm) - Depth 0.1 0.1 -Total Square Cm 49 0.01 -Photo Taken No No -Epithelialization None Present Large 67-100% -Tunneling No No -Undermining/Tunneling No No -Circular Undermining No No -Exudate Amt None Present None Present -Wound Margin Distinct, Flat & Intact Outline Attached -Granulation Amt None Present (0 None Present (0 %) %) -Granulation Quality N/A -Slough/Fibrin No Yes -Necrosis Amt Medium (34-66%) Large (67-100%) -Necrotic Tissue Type Eschar Adherent Slough -Structure Exposed N/A N/A -Texture (Jazmine-wound Skin Appearance) No Abnormality, Assessed Assessed -Moisture (Jazmine-wound Skin Appearance) No Abnormality, Assessed,Dry/ Assessed Scaly -Color (Jazmine-wound Skin Appearance) No Abnormality, Assessed Assessed -Temperature (Jazmine-wound Skin No Abnormality No Abnormality Appearance) (Pt Warm) (Pt Warm) -Tenderness on Palpation (Ajzmine-wound No No Skin Appearance) -Ulcer Cleansing Rinsed/ Rinsed/ Irrigated with Irrigated with Saline Saline -Foul Odor after Cleansing No No -Anesthetic Used 4% Lidocaine 4% Lidocaine Solution Solution #1 Right Buttock -Combined with other wound No No -Current Size (cm) - Length 0.5 0.1 -Current Size (cm) - Width 0.5 0.1 -Current Size (cm) - Depth 0.1 0.1 -Total Square Cm 0.25 0.01 -Photo Taken No No -Epithelialization Large 67-100% -Tunneling No No -Undermining/Tunneling No No -Circular Undermining No No -Change in Wound Grade/Stage No -Exudate Amt None Present None Present -Wound Margin Distinct, Flat & Intact Outline Attached -Granulation Amt None Present (0 None Present (0 %) %) -Granulation Quality N/A -Slough/Fibrin No Yes -Necrosis Amt None Present (0 Large (67-100%) %) -Necrotic Tissue Type Adherent Slough -Structure Exposed N/A N/A -Texture (Jazmine-wound Skin Appearance) No Abnormality, Assessed Assessed -Moisture (Jazmine-wound Skin Appearance) No Abnormality, Assessed,Dry/ Assessed Scaly -Color (Jazmine-wound Skin Appearance) No Abnormality, Assessed Assessed -Temperature (Jazmine-wound Skin No Abnormality No Abnormality Appearance) (Pt Warm) (Pt Warm) -Tenderness on Palpation (Jazmine-wound No No Skin Appearance) -Ulcer Cleansing Rinsed/ Rinsed/ Irrigated with Irrigated with Saline Saline -Foul Odor after Cleansing No No -Anesthetic Used 4% Lidocaine 4% Lidocaine Solution Solution Lower Limb Edema Present No NA WC - Nurse 2 - General Ulcer CM Notes Start: 06/04/21 09:13 Freq: Status: Active Protocol: Activity Type Activity Date Activity User E-Sign Co-Sign Detail Recorded Client Recorded Date Recorded By Document 06/04/21 13:15 PL [id number] 06/04/21 13:20 PL Document 06/11/21 12:18 PL [id number] 06/11/21 12:20 PL 06/04/21 06/11/21 13:15 12:18 Wound Center Nurse 2 #3 Left buttock -Time 09:50 10:50 -Correct Patient Yes -Correct Side, Site, Position Yes -Correct Procedure Yes -Procedure Performed Yes No -Type of Procedure Debridement -Clinical Debridement Subcutaneous Subcutaneous -Tissue Removed Subcutaneous Subcutaneous -Post Debridement (cm) - Length 0.7 -Post Debridement (cm) - Width 0.9 -Post Debridement (cm) - Depth 0.1 -Total Square (Post) (cm) 0.63 -Area of Debridement (cm) - Length 0.7 -Area of Debridement (cm) - Width 0.9 -Total Square (Area) (cm) 0.63 -Tunneling No -Undermining/Tunneling No -Circular Undermining No -Wound/Ulcer Outcome Not Healed Healed- Epithelialized -Ulcer Cleansing Rinsed/ Irrigated with Saline -Foul Odor after Cleansing No -Bioengineered Tissue No -Bleeding Controlled with Pressure -Treatment Response Procedure Tolerated Well -Debridement - Subq, 1st 20sq cm No #2 Right ischial cluster -Time 09:50 -Correct Patient Yes -Correct Side, Site, Position Yes -Correct Procedure Yes -Procedure Performed Yes No -Type of Procedure Debridement -Clinical Debridement Subcutaneous -Tissue Removed Subcutaneous -Post Debridement (cm) - Length 7.0 -Post Debridement (cm) - Width 7.0 -Post Debridement (cm) - Depth 0.1 -Total Square (Post) (cm) 49.00 -Area of Debridement (cm) - Length 2.0 -Area of Debridement (cm) - Width 2.0 -Total Square (Area) (cm) 4.00 -Tunneling No -Undermining/Tunneling No -Circular Undermining No -Wound/Ulcer Outcome Not Healed Healed- Epithelialized -Ulcer Cleansing Rinsed/ Irrigated with Saline -Foul Odor after Cleansing No -Bioengineered Tissue No -Bleeding Controlled with Pressure -Treatment Response Procedure Tolerated Well -Debridement - Subq, 1st 20sq cm No #1 Right Buttock -Time 09:50 10:50 -Correct Patient Yes Yes -Correct Side, Site, Position Yes Yes -Correct Procedure Yes Yes -Procedure Performed Yes Yes -Type of Procedure Debridement Debridement -Clinical Debridement Subcutaneous Subcutaneous -Tissue Removed Subcutaneous Subcutaneous -Post Debridement (cm) - Length 1.3 0.7 -Post Debridement (cm) - Width 5.0 0.3 -Post Debridement (cm) - Depth 0.1 0.1 -Total Square (Post) (cm) 6.50 0.21 -Area of Debridement (cm) - Length 1.3 0.7 -Area of Debridement (cm) - Width 5.0 0.3 -Total Square (Area) (cm) 6.50 0.21 -Tunneling No No -Undermining/Tunneling No No -Circular Undermining No No -Wound/Ulcer Outcome Not Healed Not Healed -Ulcer Cleansing Rinsed/ Rinsed/ Irrigated with Irrigated with Saline Saline -Foul Odor after Cleansing No No -Bioengineered Tissue No No -Bleeding Controlled with Pressure Pressure -Treatment Response Procedure Procedure Tolerated Well Tolerated Well -Debridement - Subq, 1st 20sq cm Yes Yes Pain Scale: 0-10 Numeric Is Patient Pain Free? Yes Yes WC - Nurse 3 - General Ulcer D/C NN Start: 06/04/21 09:13 Freq: Status: Active Protocol: Activity Type Activity Date Activity User E-Sign Co-Sign Detail Recorded Client Recorded Date Recorded By Document 06/04/21 10:25 ML [id number] 06/04/21 10:28 ML Document 06/11/21 11:16 MI [id number] 06/11/21 11:18 MI 06/04/21 06/11/21 10:25 11:16 Wound Care Nurse 3 #3 Left buttock -Ulcer Cleansing Rinsed/ Irrigated with Saline -Primary Dressing Applied Promogran Mepilex Border, Cady Matter Promogran -Other Dressing SUPER ABSORB -Mepilex Border 3 -Promogran 1 -Promogran Cady Matter 1 #2 Right ischial cluster -Ulcer Cleansing Rinsed/ Irrigated with Saline -Foul Odor after Cleansing No -Primary Dressing Applied Promogran Cady Matter -Other Dressing SUPER ABSORB -Promogran Cady Matter 0 #1 Right Buttock -Ulcer Cleansing Rinsed/ Irrigated with Saline -Primary Dressing Applied Promogran Cady Matter -Other Dressing SUPER ABSORB -Promogran Cady Matter 0 Pain Scale: 0-10 Numeric Is Patient Pain Free? Yes Yes Assessment/Plan Assessment/Plan (1) Stage II pressure ulcer of right buttock: CODE(S): L89.312 - Pressure ulcer of right buttock, stage 2 (2) Stage II pressure ulcer of left buttock: CODE(S): L89.322 - Pressure ulcer of left buttock, stage 2 (3) Stage II pressure ulcer of sacral region: CODE(S): L89.152 - Pressure ulcer of sacral region, stage 2 (4) Type 2 diabetes mellitus with other skin ulcer: CODE(S): E11.622 - Type 2 diabetes mellitus with other skin ulcer; L98.499 - Non-pressure chronic ulcer of skin of other sites with unspecified severity QUALIFIERS: Diabetes mellitus manager long term care insulin use: with penitentiary use Qualified Code(s): E11.622 - Type 2 diabetes mellitus with other skin ulcer; Z79.4 - care home (current) use of insulin (5) Insulin dependent type 2 diabetes mellitus: CODE(S): E11.9 - Type 2 diabetes mellitus without complications; Z79.4 - care home (current) use of insulin (6) Limited mobility: CODE(S): Z74.09 - Other reduced mobility (7) Hypoxia: CODE(S): R09.02 - Hypoxemia PLAN: Debridement performed today in clinic as annotated above. Cady applied to the ulcer of the right buttock. Covered with a silicone border dressing. At home wound-care instructions: Change Cady dressing once daily or more frequently as needed due to contamination. Wash wounds daily with antibacterial soap and water, rinse and dry thoroughly before each dressing change. Cover with silicone border dressing. As a barrier protectant, apply A&D ointment to the bilateral buttocks following each void. Off-loading: The patient was instructed to avoid pressure and friction on the affected areas. Instructions on offloading while seated and while sleeping were given to patient and granddaughter. Reposition every 1 hour at minimum. When seated, feet should be elevated at chest level. Frequent ambulation is encouraged. Diet: Patient encouraged to increase protein intake while taking caution to avoid high carbohydrate and/or sugar intake. Nick samples given today. Patient has implemented protein supplementation. Labs/cultures/imaging: Cultures deferred today due to the absence of clinical signs or symptoms of infection. Labs reviewed as annotated above. No further testing ordered at this time; we will continue to monitor. Follow-up: Return to clinic in 1 week for re-evaluation. Return sooner or report to the emergency room should symptoms worsen, or new symptoms arise. Note: Repligen speech recognition cut out stitcher software was used to create portions of this document. Sound-alike and misspelled words, as well as other cut out stitcher errors may be contained in the documentation.
== END 2021-06-21 23:59 ==
LOC: WC 10:00
PROVIDERS: PCP Internal Medicine; Visit Provider Nurse Practitioner Family
DX: E11.622 Type 2 diabetes mellitus with other skin ulcer (principal); L89.322 Pressure ulcer of left buttock, stage 2; L89.312 Pressure ulcer of right buttock, stage 2; L89.152 Pressure ulcer of sacral region, stage 2; L98.491 Non-pressure chronic ulcer of skin of other sites limited to breakdown of skin; J44.9 Chronic obstructive pulmonary disease, unspecified; Z79.4 Long term (current) use of insulin; Z87.891 Personal history of nicotine dependence; I10 Essential (primary) hypertension; E78.00 Pure hypercholesterolemia, unspecified; R09.02 Hypoxemia; Z74.09 Other reduced mobility; I25.10 Atherosclerotic heart disease of native coronary artery without angina pectoris; Z79.01 Long term (current) use of anticoagulants; R15.9 Full incontinence of feces; Z79.82 Long term (current) use of aspirin; R32 Unspecified urinary incontinence; Z86.73 Personal history of transient ischemic attack (TIA), and cerebral infarction without residual deficits; Z95.5 Presence of coronary angioplasty implant and graft; Z86.16 Personal history of COVID-19
CPT/HCPCS: 11042; 99213; G0463

== ENCOUNTER 2021-07-13 14:22 | Observation (INO) | payer MEDICARE, OTHER, SELFPAY ==
[2021-07-13 14:23] VITALS: BP 112/60; PULSE 69; RESP 15; TEMP 36.8; O2SAT 95; BMI 22.1
--- NOTE | 2021-07-13 15:32 | RAD_ITS ---
STUDY: X-RAY - PELVIS AND LEFT HIP REASON FOR EXAM: Female, 85 years old. Pain following a fall. TECHNIQUE: 3 views of the pelvis and hip. COMPARISON: Comparison is made with prior examination 03/01/2012. FINDINGS: There is a non-specific bowel gas pattern. Evidence of prior right abdominal hernia repair. There is narrowing with cortical sclerosis and osteophyte formation of the sacroiliac joint consistent with degenerative osteoarthritic changes. Nondisplaced fractures of the left superior and inferior pubic rami. Normal pubic symphysis. Normal bilateral ischial tuberosities. Normal visualized femoral head. Normal acetabulum. There is moderate articular joint space narrowing of the hip. RAD/HIP, UNI W/ Pelvis 2-3 Views IMPRESSION: Degenerative changes. Nondisplaced fractures of the left superior and inferior pubic rami. Electronically Signed: Colin Mae MD at 15:54 EST ,
--- NOTE | 2021-07-13 16:18 | EKG12_ITS ---
Test Reason : LOWER EXTREMITY PAIN Blood Pressure : / mmHG Vent. Rate : 067 BPM Atrial Rate : 067 BPM P-R Int : 150 ms QRS Dur : 068 ms QT Int : 430 ms P-R-T Axes : 018 -22 048 degrees QTc Int : 454 ms Sinus rhythm with occasional Premature ventricular complexes Leftward axis Poor R wave progression Nonspecific T wave abnormality Confirmed by JUAN ALLRED, ROSA ([id number]), technical editor ZEESHAN THAKKAR ([id number]) on 07/15/2021 8:16:47 AM Referred By: Confirmed By:ROSA MARTINEZ MD
--- NOTE | 2021-07-13 16:20 | EDS_ITS ---
HPI History of Present Illness Chief Complaint: Lower Extremity Injury Detail of Chief Complaint: Left sided pelvic pain status post syncope Informant: patient Onset/Context/Timing Onset: Today and Hours (1230) Context: Sudden Onset Timing: Continuous Quality: Pain Location: Pelvic region left Current Severity: Mild Maximum Severity: Severe Worsened by: Movement, weightbearing Relieved by: Nothing Associated Symptoms Associated Symptoms: Syncope Narrative Narrative: Patient is an elderly woman with history of coronary disease status post placement of 3 stents, hypertension, insulin-dependent diabetes, hypercholesterolemia who was walking to the kitchen to make lunch. She woke up on the floor. She complains of pain left side. She has chronic left shoulder pain due to rotator cuff injury. She is not on an anticoagulant. She denies head trauma. Denies headache. She denies neck pain. She denies paresthesia, anesthesia or motor weakness. She presently denies chest pain. She denies shortness of breath. She denies nausea or vomiting. She denies black or maroon-colored stool. She denies numbness or tingling or upper lower extremity exam Patient does not recall why she fell. She knew she fell because she awoke on the floor. Prior similar symptoms: No Recent Illness/Hospitalization: No PFSH PFS Medical History Abnormal stress test Acute respiratory failure with hypoxia Arteriovenous fistula, acquired, of heart Asthma Atherosclerosis of [place] coronary artery of [place] heart without angina pectoris Bilateral carotid artery stenosis Cerebral artery occlusion Chest pain COPD (chronic obstructive pulmonary disease) Coronary artery anomaly Debility Diabetes Epigastric pain Essential (primary) hypertension Falls Former smoker GERD (gastroesophageal reflux disease) Insulin dependent type 2 diabetes mellitus Limited mobility Presence of stent in coronary artery (~02/27/18) Pure hypercholesterolemia Sleep apnea Spinal stenosis Stage II pressure ulcer of left buttock Stage II pressure ulcer of right buttock Stage II pressure ulcer of sacral region TIA (transient ischemic attack) Type 2 diabetes mellitus with other skin ulcer Type 2 diabetes mellitus, with long-term current use of insulin Home Medications multivitamin 1 tab PO DAILY 05/30/17 [History Last Taken 07/13/21] pantoprazole 40 mg tablet,delayed release 40 mg PO DAILY 05/30/17 [History Last Taken 07/13/21] metoprolol succinate 25 mg tablet,extended release 24 hr 12.5 mg PO BID tab 01/11/18 [History Last Taken 07/13/21] citalopram 20 mg PO DAILY 04/28/20 [History Last Taken 07/13/21] leflunomide 10 mg PO DAILY 04/28/20 [History Last Taken 07/13/21] tramadol 50 mg PO BID PRN PRN 04/28/20 [History Last Taken 07/13/21] albuterol sulfate 1 - 2 puff INHALATION Q6H PRN PRN 05/28/20 [History Last Taken Unknown] isosorbide mononitrate 30 mg tablet,extended release 24 hr 15 mg PO DAILY #45 tab 06/08/20 [Rx Last Taken 07/13/21] aspirin 81 mg tablet,delayed release 81 mg PO DAILY 06/17/20 [History Last Taken 07/13/21] simvastatin 40 mg tablet 40 mg PO QHS tab 04/07/21 [History Last Taken 07/12/21] insulin aspart U-100 8 unit SC TID #0 ml 05/03/21 [Rx Last Taken 07/13/21] Black Elderberry 1,000 mg PO/SL DAILY 05/05/21 [History Last Taken 07/13/21] acetaminophen 500 mg PO BID PRN 05/05/21 [History Last Taken 07/12/21] amlodipine 2.5 mg PO DAILY 05/05/21 [History Last Taken 07/13/21] ascorbic acid (vitamin C) 500 mg PO DAILY 05/05/21 [History Last Taken 07/13/21] calcium-vitamin D3-vitamin K 1 tab PO DAILY 05/05/21 [History Last Taken 07/13/21] cholecalciferol (vitamin D3) 25 mcg PO DAILY 05/05/21 [History Last Taken 07/13/21] cranberry 2,000 mg PO DAILY 05/05/21 [History Last Taken 07/13/21] clobetasol 1 applic TOPICAL BID 06/04/21 [History Last Taken 07/13/21] fluticasone furoate 50 mcg INHALATION DAILY PRN 06/04/21 [History Last Taken Unknown] insulin detemir U-100 10 unit SQ QHS 07/13/21 [History Last Taken 07/12/21] losartan 50 mg PO DAILY 07/13/21 [History Last Taken 07/13/21] Allergy/AdvReac Type Severity Reaction Status Date / Time metronidazole [From Flagyl] Allergy Other Verified 07/13/21 14:25 oxycodone HCl Allergy Other Verified 07/13/21 14:25 [From OxyContin] Family History Father CAD (coronary artery disease) Myocardial infarction Mother Cancer Sister Breast cancer Surgical History H/O tubal ligation History of coronary artery stent placement History of cystoscopy (06/03/20) Hx of cardiac cath Presence of coronary angioplasty implant and graft (~02/27/18) S/p bilateral carpal tunnel release Social History household members: none housing: apartment current occupational status: retired leisure activities: games and other Smoking Status: Former smoker how long ago did patient quit smokin years ago, when smoking 1/4-1/2 ppd maximum. second hand exposure: No alcohol intake: never substance use type: does not use caffeine: Yes Type: coffee Number of servings: 2 ROS ROS ED Constitutional Constitutional ED: Denies chills, fever(s), subjective, sweats or weight loss Eyes Eyes: Denies blurry vision, change in vision or diplopia ENT ENT ED: Denies ear pain, rhinorrhea or sore throat Cardiovascular Cardiovascular: Denies chest pain, palpitations or racing heartbeat Respiratory/Chest Respiratory/Chest: Denies cough, dyspnea or dyspnea on exertion Gastrointestinal Gastrointestinal: Denies abdominal pain, constipation, diarrhea, melena, nausea or vomiting Genitourinary Genitourinary ED: Denies dysuria, hematuria or urinary frequency Musculoskeletal Musculoskeletal: Reports other Details: Pain that is chronic left shoulder and acute left pelvic ; Denies arthralgias, back pain, myalgias or neck pain Integumentary Denies rash Neurologic Neurologic: Denies headache(s), paresthesias or weakness Endocrine Endocrinology: Denies polydipsia, polyphagia or polyuria Hematologic/Lymphatic Hematologic/Lymphatic: Denies anemia, easy bleeding or easy bruising EXAM Physical Exam Const Vital Signs: 07/13/21 14:23 Temperature 98.2 F Temperature Source Temporal Pulse Rate 69 Respiratory Rate 15 Blood Pressure 112/60 Blood Pressure Mean 77 Pulse Ox 95 Oxygen Delivery Method Room Air Positive well nourished and well developed; Negative for obese, cachectic, contractures or unkempt General Appearance ED: well developed and NAD; Negative for unkempt, cachectic, contractures, cyanotic, diaphoretic or pallor Nutritional Appearance: Negative for cachectic or obese HEENT Reports TM's clear and moist mucous membranes HEENT Narrative: No septal deviation hematoma. No clinical signs of basilar skull fracture. Uvula midline. No dental trauma. There is no erythema or exudate of posterior pharynx. Negative for trauma or tenderness Tympanic Membrane ED: Yes TM's clear Eyes PERRL and EOMs intact bilaterally Eyes Narrative: 6 General Eye ED: Negative for pale conjunctiva or scleral icterus Neck no lymphadenopathy, supple and no JVD Neck Narrative: C-spine cleared per Nexus criteria. Chest Wall inspection of chest normal and palpation of chest normal Resp normal respiratory effort and clear to auscultation bilaterally Effort and Inspection: pain with movement Cardio regular rate, regular rhythm, S1 normal heart sound, S2 normal heart sound and no murmurs GI normal to inspection, nondistended, normoactive bowel sounds, non-tender and non-distended Palpation: soft Back/Spine no CVA tenderness Cervical Spine: Negative for cervical spine tenderness Thoracic Spine / Upper Back: Negative for thoracic spinal tenderness or paraspinal muscle tenderness Extremity normal to inspection Extremity Narrative: Tenderness to palpation over the left inguinal crease and over the left ischial tuberosity. General Extremety ED: Yes tenderness; Negative for edema General Extremity: Negative for edema Neuro oriented x3, CN's II-XII intact bilaterally and no sensory deficits noted Sensorium / Orientation: alert Motor Exam: strength 5/5 throughout Psych mental status grossly normal Appearance: Negative for unkempt Skin no rashes or lesions noted, no wounds and skin turgor normal General Skin Exam: Negative for jaundice or pallor MDM MDM MDM Narrative Medical decision making narrative: Work-up was undertaken to determine cause of patient's syncope. Need to rule out cardiac versus noncardiac. X-ray of the left pelvis was obtained and reveals a fracture involving the superior and inferior pubic rami. There is no evidence of fracture to the femur. Patient was medicated with Zofran and morphine for her nausea and pain. Patient was informed she will need admission. Lab Data Attestation: I reviewed the patient's lab results. Labs: Laboratory Results - last 24 hr 07/13/21 07/13/21 16:10 16:10 WBC 11.7 H RBC 4.43 Hgb 13.8 Hct 39.1 MCV 88.3 MCH 31.2 MCHC 35.3 RDW Std Deviation 45.7 H RDW Coeff of [place] 14.1 Plt Count 247 MPV 11.7 Immature Gran % (Auto) 0.800 Neut % (Auto) 68.1 Lymph % (Auto) 20.2 [place] % (Auto) 6.7 Eos % (Auto) 3.3 Baso % (Auto) 0.9 Absolute Neuts (auto) 8.0 H Absolute Lymphs (auto) 2.35 Nucleated RBC % 0 Sodium 136 Potassium 4.5 Chloride 101 Carbon Dioxide 29.0 Anion Gap 6 BUN 31 H Creatinine 1.00 Estim Creat Clear Calc 30.65 Est GFR (MDRD) Af Amer 68 Est GFR (MDRD) Non-Af 56 L BUN/Creatinine Ratio 31.0 H Glucose 171 H Calcium 9.5 Total Bilirubin 0.40 AST 31 ALT 25 Alkaline Phosphatase 59 Troponin I High Sens 12 Total Protein 7.4 Albumin 3.4 Globulin 4.0 Albumin/Globulin Ratio 0.8 L Radiography Chest X-Ray - ED: Read by ED Physician (X-ray the pelvis reveals inferior superior pubic rami fracture as described in the MDM and HPI.) Diagnostic Testing: Clinical Impression(s) from Imaging Studies Hip/Pelvis X-Ray 07/13/21 15:32 IMPRESSION: Degenerative changes. Nondisplaced fractures of the left superior and inferior pubic rami. Electronically Signed: Colin Mae MD at 15:54 EST , Discharge Plan Triage Chief Complaint: Lower Extremity Injury ED Provider: Garrison Lindo Dx/Rx/DC Orders Clinical Impression: Syncope and collapse, Fracture of superior ramus of left pubis, Closed fracture of left inferior pubic ramus Prescriptions: No Action pantoprazole 40 mg tablet,delayed release (DR/EC) 40 mg PO DAILY RF: 0 multivitamin tablet 1 tab PO DAILY RF: 0 metoprolol succinate 25 mg tablet extended release 24 hr 12.5 mg PO BID RF: 0 aspirin 81 mg tablet,delayed release (DR/EC) 81 mg PO DAILY RF: 0 leflunomide 10 MG tablet 10 mg PO DAILY RF: 0 Hold Instructions: Resume on 05/16/21. tramadol 50 MG tablet 50 mg PO BID PRN PRN (Reason: Pain 1-10 Or Fever) RF: 0 citalopram 20 MG tablet 20 mg PO DAILY RF: 0 simvastatin 40 mg tablet 40 mg PO QHS RF: 0 albuterol sulfate 1 INHALER inhaler 1 - 2 puff INHALATION Q6H PRN PRN (Reason: Asthma) RF: 0 insulin aspart U-100 100 UNITS/ML insulin pen 8 unit SC TID Qty: 0 RF: 0 acetaminophen 500 mg Tablet 500 mg PO BID PRN (Reason: Pain) RF: 0 ascorbic acid (vitamin C) 500 mg Tablet 500 mg PO DAILY RF: 0 cranberry 1,000 mg Capsule 2,000 mg PO DAILY RF: 0 cholecalciferol (vitamin D3) 25 mcg (1,000 unit) Capsule 25 mcg PO DAILY RF: 0 calcium-vitamin D3-vitamin K 500-100-40 mg-unit-mcg Tablet,Chewable 1 tab PO DAILY RF: 0 Black Elderberry 1,000 mg PO/SL DAILY RF: 0 amlodipine 2.5 mg tablet 2.5 mg PO DAILY RF: 0 clobetasol 0.05 % Cream 1 applic TOPICAL BID RF: 0 fluticasone furoate 50 mcg/actuation Blister With Device 50 mcg INHALATION DAILY PRN (Reason: ALLERGIES) RF: 0 insulin detemir U-100 100 UNIT/ML insulin pen 10 unit SQ QHS RF: 0 losartan 50 mg tablet 50 mg PO DAILY RF: 0 isosorbide mononitrate 30 mg tablet extended release 24 hr 15 mg PO DAILY Qty: 45 RF: 3 Primary Care Provider: Zulma Corral Referrals: Zulma Corral MD [Primary Care Provider] - Disposition Disposition: Acute Care Hospital [facility]
[2021-07-13] MEDS: Morphine 4 MG/ML Syringe IV ×2 (16:23→17:46)
[2021-07-13] MEDS: Ondansetron 4 MG/2 ML Vial IV (16:23)
[2021-07-13 16:43] LABS: Absolute Lymphocyte Count 2.35 X10^3/uL (0.83-4.51); Basophil% 0.9 % (0-1); Eosinophil# 0.39 X10^3/uL; Eosinophils% 3.3 % (0-5); Hematocrit 39.1 % (37-47); Hemoglobin 13.8 g/dL (12.0-15.0); Lymphocyte # 2.35 X10^3/ul (0.83-4.51); Lymphocyte % 20.2 % (19-41); Mean Corp Hgb Conc 35.3 g/dL (32-36); Mean Corpuscular Hgb 31.2 pg (27.0-32.0); Mean Corpuscular Volume 88.3 fL (81-99); Mean Platelet Vol. 11.7 fl (6.2-12.0); Monocyte# 0.78 X10^3/uL; Monocyte% 6.7 % (0-10); NRBC Flagged by Analyzer 0 % (0-5); Neutrophil # 7.95 X10^3/uL (2.7-7.7); Neutrophil % 68.1 % (47-70); Platelet Count 247 K/mm3 (150-450); RBC Distribution Width CV 14.1 % (11.6-14.6); RBC Distribution Width SD 45.7 fl (35.1-43.9); Red Blood Count 4.43 M/mm3 (4.2-5.4); White Blood Count 11.7 K/mm3 (4.4-11.0)
[2021-07-13 16:44] LABS: POSITIVE COUNT NO; POSITIVE DIFFERENTIAL NO; POSITIVE MORPHOLOGY NO
[2021-07-13 17:02] LABS: ALB/GLOB Ratio 0.8 RATIO (0.9-2.4); AST(SGOT) 31 U/L (15-37); Alanine Aminotransfer ALT/SGPT 25 U/L (13-56); Albumin, Serum 3.4 g/dL (3.2-5.0); Alkaline Phosphatase 59 U/L (45-117); Anion Gap 6 (5-15); BUN 31 mg/dL (7-18); Calcium,Total 9.5 mg/dL (8.5-10.1); Chloride 101 mmol/L (98-107); EST Glomerular Filtration Rate 56 mL/min (>60); Est Glom Filt Rate - Afr Amer 68 mL/min (>60); Estimated Creatinine Clearance 30.65 ml/min; Glucose 171 mg/dL (74-106); Potassium 4.5 mmol/L (3.5-5.1); Protein, Total 7.4 g/dL (6.4-8.2); Sodium Level 136 mmol/L (136-145); Troponin-I HS 12 pg/mL (3.0-54.0)
--- NOTE | 2021-07-13 17:16 | NURSING ---
PCU OBS WHITE SYNCOPE, INFERIOR AND SUPERIOR LEFT PUBIC RAMI FRACTURE
--- NOTE | 2021-07-13 18:04 | PCM.HP.STD ---
Documented by User: MARIYA Sutherland 07/13/21 18:23 HPI - General General Date of Admission: 07/13/21 Date of Service: 07/13/21 Chief Complaint: Syncope HPI Narrative ESTUARDO MOODY, is a 85 F who presents following a syncopal episode at home. Patient states that she does not remember what happened prior to syncopal episode. Patient's son was at home with her and heard her yell as soon as she fell. Patient states that she has had multiple episodes of falling in the past related to dizziness and syncope. Patient states that she was supposed to follow-up with Dr. Rivas for carotid disease evaluation however she did not due to the fact that she acquired Covid in April. Patient states that her daughter has voiced concerns that her blood pressure medications are making her blood pressure too low. Patient reports a medical history that involves coronary artery disease with the presence of stents, hypercholesterolemia, type II diabetes. Upon evaluation in ER patient was also noted to have closed fracture of the left inferior and superior ramus of the pubis. FORMERLY [facility], [facility]–1983 Medical History Abnormal stress test Acute respiratory failure with hypoxia Arteriovenous fistula, acquired, of heart Asthma Atherosclerosis of [place] coronary artery of [place] heart without angina pectoris Bilateral carotid artery stenosis Cerebral artery occlusion Chest pain COPD (chronic obstructive pulmonary disease) Coronary artery anomaly Debility Diabetes Epigastric pain Essential (primary) hypertension Falls Former smoker GERD (gastroesophageal reflux disease) Insulin dependent type 2 diabetes mellitus Limited mobility Presence of stent in coronary artery (~02/27/18) Pure hypercholesterolemia Sleep apnea Spinal stenosis Stage II pressure ulcer of left buttock Stage II pressure ulcer of right buttock Stage II pressure ulcer of sacral region TIA (transient ischemic attack) Type 2 diabetes mellitus with other skin ulcer Type 2 diabetes mellitus, with long-term current use of insulin Home Medications multivitamin 1 tab PO DAILY 05/30/17 [History Last Taken 07/13/21] pantoprazole 40 mg tablet,delayed release 40 mg PO DAILY 05/30/17 [History Last Taken 07/13/21] metoprolol succinate 25 mg tablet,extended release 24 hr 12.5 mg PO BID tab 01/11/18 [History Last Taken 07/13/21] citalopram 20 mg PO DAILY 04/28/20 [History Last Taken 07/13/21] leflunomide 10 mg PO DAILY 04/28/20 [History Last Taken 07/13/21] tramadol 50 mg PO BID PRN PRN 04/28/20 [History Last Taken 07/13/21] albuterol sulfate 1 - 2 puff INHALATION Q6H PRN PRN 05/28/20 [History Last Taken Unknown] isosorbide mononitrate 30 mg tablet,extended release 24 hr 15 mg PO DAILY #45 tab 06/08/20 [Rx Last Taken 07/13/21] aspirin 81 mg tablet,delayed release 81 mg PO DAILY 06/17/20 [History Last Taken 07/13/21] simvastatin 40 mg tablet 40 mg PO QHS tab 04/07/21 [History Last Taken 07/12/21] insulin aspart U-100 8 unit SC TID #0 ml 05/03/21 [Rx Last Taken 07/13/21] Black Elderberry 1,000 mg PO/SL DAILY 05/05/21 [History Last Taken 07/13/21] acetaminophen 500 mg PO BID PRN 05/05/21 [History Last Taken 07/12/21] amlodipine 2.5 mg PO DAILY 05/05/21 [History Last Taken 07/13/21] ascorbic acid (vitamin C) 500 mg PO DAILY 05/05/21 [History Last Taken 07/13/21] calcium-vitamin D3-vitamin K 1 tab PO DAILY 05/05/21 [History Last Taken 07/13/21] cholecalciferol (vitamin D3) 25 mcg PO DAILY 05/05/21 [History Last Taken 07/13/21] cranberry 2,000 mg PO DAILY 05/05/21 [History Last Taken 07/13/21] clobetasol 1 applic TOPICAL BID 06/04/21 [History Last Taken 07/13/21] fluticasone furoate 50 mcg INHALATION DAILY PRN 06/04/21 [History Last Taken Unknown] insulin detemir U-100 10 unit SQ QHS 07/13/21 [History Last Taken 07/12/21] losartan 50 mg PO DAILY 07/13/21 [History Last Taken 07/13/21] Allergy/AdvReac Type Severity Reaction Status Date / Time metronidazole [From Flagyl] Allergy PT UNSURE Verified 07/13/21 18:00 OF REACTION oxycodone HCl Allergy hallucinati Verified 07/13/21 18:00 [From OxyContin] on lidocaine AdvReac Nausea Verified 07/13/21 18:01 Family History Father CAD (coronary artery disease) Myocardial infarction Mother Cancer Sister Breast cancer Surgical History H/O tubal ligation History of coronary artery stent placement History of cystoscopy (06/03/20) Hx of cardiac cath Presence of coronary angioplasty implant and graft (~02/27/18) S/p bilateral carpal tunnel release Social History household members: none housing: apartment current occupational status: retired leisure activities: games and other Smoking Status: Former smoker how long ago did patient quit smokin years ago, when smoking 1/4-1/2 ppd maximum. second hand exposure: No alcohol intake: never substance use type: does not use caffeine: Yes Type: coffee Number of servings: 2 ROS Constitutional Constitutional: Reports weakness; Denies anorexia, chills, fatigue, fever(s) or malaise Cardiovascular Cardiovascular: Reports hypertension, lightheadedness, orthostatic symptoms and syncope Respiratory/Chest Respiratory/Chest: Denies cough, shortness of breath at rest, shortness of breath with exertion or wheezing Gastrointestinal Gastrointestinal: Denies abdominal pain, constipation or diarrhea Genitourinary Genitourinary: Denies dysuria Musculoskeletal Musculoskeletal: Reports limited range of motion and other Details: Pelvic pain ; Denies back pain or extremity pain Integumentary Integumentary: Denies dry skin Neurologic Neurologic: Denies abnormal gait, abnormal speech, confusion, dizziness or focal weakness Psychiatric Psychiatric: Denies anxiety or depression Endocrine Endocrinology: Denies change in body appearance Hematologic/Lymphatic Hematologic/Lymphatic: Denies anemia Vital Signs Vital Signs Vital Signs: 07/13/21 14:23 Temperature 98.2 F Temperature Source Temporal Pulse Rate 69 Respiratory Rate 15 Blood Pressure 112/60 Blood Pressure Mean 77 Pulse Ox 95 Oxygen Delivery Method Room Air Weight Weight: 106 lb Body Mass Index (BMI) 22.1 Physical Exam Const alert, oriented x3 and no apparent distress General Appearance: cooperative HEENT normocephalic and head/scalp atraumatic Eyes conjunctivae normal and no scleral icterus Neck supple General: trachea midline Lymph Lymphatic: no lymphadenopathy noted Resp normal respiratory effort, normal air movement and clear to auscultation bilaterally Cardio regular rate, regular rhythm, S1 normal heart sound, S2 normal heart sound and peripheral pulses 2+ throughout GI normal to inspection, nondistended, normoactive bowel sounds, soft to palpation and non-tender Extremity normal capillary refill and no clubbing, cyanosis or edema Extremity Narrative: Tenderness noted to palpation of left pelvis Skin Skin Narrative: Patient has multiple small to bilateral buttocks for which patient has been following at [facility] General Skin Exam: turgor normal Rashes: no rashes Neuro no focal motor deficits and no sensory deficits noted Speech: speech normal Motor Exam: general weakness Psych thought process normal, cooperative and affect normal Appearance: appropriate Results Lab / Micro Data Result Diagrams: 07/13/21 16:10 07/13/21 16:10 Labs: Laboratory Results - last 24 hr 07/13/21 16:10: WBC 11.7 H, RBC 4.43, Hgb 13.8, Hct 39.1, MCV 88.3, MCH 31.2, MCHC 35.3, RDW Std Deviation 45.7 H, RDW Coeff of [place] 14.1, Plt Count 247, MPV 11.7, Immature Gran % (Auto) 0.800, Neut % (Auto) 68.1, Lymph % (Auto) 20.2, [place] % (Auto) 6.7, Eos % (Auto) 3.3, Baso % (Auto) 0.9, Absolute Neuts (auto) 8.0 H, Absolute Lymphs (auto) 2.35, Nucleated RBC % 0 07/13/21 16:10: Sodium 136, Potassium 4.5, Chloride 101, Carbon Dioxide 29.0, Anion Gap 6, BUN 31 H, Creatinine 1.00, Estim Creat Clear Calc 30.65, Est GFR (MDRD) Af Amer 68, Est GFR (MDRD) Non-Af 56 L, BUN/Creatinine Ratio 31.0 H, Glucose 171 H, Calcium 9.5, Total Bilirubin 0.40, AST 31, ALT 25, Alkaline Phosphatase 59, Troponin I High Sens 12, Total Protein 7.4, Albumin 3.4, Globulin 4.0, Albumin/Globulin Ratio 0.8 L Radiology Impression Hip/Pelvis X-Ray 07/13/21 15:32 IMPRESSION: Degenerative changes. Nondisplaced fractures of the left superior and inferior pubic rami. Electronically Signed: Colin Mae MD at 15:54 EST , Assessment & Plan Assessment/Plan (1) Syncope and collapse: (2) Fracture of superior ramus of left pubis: QUALIFIERS: Encounter type: initial encounter Fracture type: closed Qualified Code(s): S32.512A - Fracture of superior rim of left pubis, initial encounter for closed fracture (3) Closed fracture of left inferior pubic ramus: QUALIFIERS: Encounter type: initial encounter Qualified Code(s): S32.592A - Other specified fracture of left pubis, initial encounter for closed fracture (4) Insulin dependent type 2 diabetes mellitus: (5) Stage II pressure ulcer of right buttock: PLAN: Weightbearing as tolerated1. Syncope and collapse -Admit to PCU for cardiac monitoring -Echocardiogram ordered for a.m. -Trend cardiac enzymes -Cardiac calorie controlled diet ordered -Orthostatic vital signs x1 -Due to our positioning -CBC, BMP, magnesium, phosphorus, TSH ordered for a.m. -Due to family's concern that patient's blood pressure may be going low secondary to hypertensive medications we will hold amlodipine and isosorbide at this time, continue losartan and metoprolol with hold parameters in place. -Normal saline 60 mL/h ordered -Every morning EKG 2. Closed fracture of left inferior pubic ramus and left superior pubic ramus -PT and OT ordered -Weightbearing as tolerated -Case management consulted for discharge planning, patient will likely need home health for snf facility 3. Stage II pressure ulcer right buttock -This wound is chronic and patient has been following with wound center -Wound nurse consulted -Dry sterile dressing ordered pending evaluation by wound RN 4. Diabetes mellitus type 2 -ACH S blood sugars with sliding scale insulin ordered -Continue patient's home insulin regimen including 10 units insulin detemir nightly and insulin aspart 8 units 3 times daily with meals 5. Essential hypertension -Continue metoprolol and losartan -Hold isosorbide and amlodipine pending evaluation for orthostatic hypotension -Vital signs per protocol, currently stable 6. CAD with presence of coronary stents x3 DVT prophylaxis-subcu Lovenox This patient was seen by MARIYA Sutherland under the supervision of Dr. Valero. 35 minutes spent in clinical coordination of patient's plan of care. Documented by User: Dr. Joyce Valero MD 07/13/21 20:14 HPI - General General Date of Admission: 07/13/21 FORMERLY [facility], [facility] Medical History Abnormal stress test Acute respiratory failure with hypoxia Arteriovenous fistula, acquired, of heart Asthma Atherosclerosis of [place] coronary artery of [place] heart without angina pectoris Bilateral carotid artery stenosis Cerebral artery occlusion Chest pain COPD (chronic obstructive pulmonary disease) Coronary artery anomaly Debility Diabetes Epigastric pain Essential (primary) hypertension [place] Former smoker GERD (gastroesophageal reflux disease) Insulin dependent type 2 diabetes mellitus Limited mobility Presence of stent in coronary artery (~02/27/18) Pure hypercholesterolemia Sleep apnea Spinal stenosis Stage II pressure ulcer of left buttock Stage II pressure ulcer of right buttock Stage II pressure ulcer of sacral region TIA (transient ischemic attack) Type 2 diabetes mellitus with other skin ulcer Type 2 diabetes mellitus, with long-term current use of insulin Home Medications multivitamin 1 tab PO DAILY 05/30/17 [History Last Taken 07/13/21] pantoprazole 40 mg tablet,delayed release 40 mg PO DAILY 05/30/17 [History Last Taken 07/13/21] metoprolol succinate 25 mg tablet,extended release 24 hr 12.5 mg PO BID tab 01/11/18 [History Last Taken 07/13/21] citalopram 20 mg PO DAILY 04/28/20 [History Last Taken 07/13/21] leflunomide 10 mg PO DAILY 04/28/20 [History Last Taken 07/13/21] tramadol 50 mg PO BID PRN PRN 04/28/20 [History Last Taken 07/13/21] albuterol sulfate 1 - 2 puff INHALATION Q6H PRN PRN 05/28/20 [History Last Taken Unknown] isosorbide mononitrate 30 mg tablet,extended release 24 hr 15 mg PO DAILY #45 tab 06/08/20 [Rx Last Taken 07/13/21] aspirin 81 mg tablet,delayed release 81 mg PO DAILY 06/17/20 [History Last Taken 07/13/21] simvastatin 40 mg tablet 40 mg PO QHS tab 04/07/21 [History Last Taken 07/12/21] insulin aspart U-100 8 unit SC TID #0 ml 05/03/21 [Rx Last Taken 07/13/21] Black Elderberry 1,000 mg PO/SL DAILY 05/05/21 [History Last Taken 07/13/21] acetaminophen 500 mg PO BID PRN 05/05/21 [History Last Taken 07/12/21] amlodipine 2.5 mg PO DAILY 05/05/21 [History Last Taken 07/13/21] ascorbic acid (vitamin C) 500 mg PO DAILY 05/05/21 [History Last Taken 07/13/21] calcium-vitamin D3-vitamin K 1 tab PO DAILY 05/05/21 [History Last Taken 07/13/21] cholecalciferol (vitamin D3) 25 mcg PO DAILY 05/05/21 [History Last Taken 07/13/21] cranberry 2,000 mg PO DAILY 05/05/21 [History Last Taken 07/13/21] clobetasol 1 applic TOPICAL BID 06/04/21 [History Last Taken 07/13/21] fluticasone furoate 50 mcg INHALATION DAILY PRN 06/04/21 [History Last Taken Unknown] insulin detemir U-100 10 unit SQ QHS 07/13/21 [History Last Taken 07/12/21] losartan 50 mg PO DAILY 07/13/21 [History Last Taken 07/13/21] Allergy/AdvReac Type Severity Reaction Status Date / Time metronidazole [From Flagyl] Allergy PT UNSURE Verified 07/13/21 18:00 OF REACTION oxycodone HCl Allergy hallucinati Verified 07/13/21 18:00 [From OxyContin] on lidocaine AdvReac Nausea Verified 07/13/21 18:01 Family History Father CAD (coronary artery disease) Myocardial infarction Mother Cancer Sister Breast cancer Surgical History H/O tubal ligation History of coronary artery stent placement History of cystoscopy (06/03/20) Hx of cardiac cath Presence of coronary angioplasty implant and graft (~02/27/18) S/p bilateral carpal tunnel release Social History household members: none housing: apartment current occupational status: retired leisure activities: games and other Smoking Status: Former smoker how long ago did patient quit smokin years ago, when smoking 1/4-1/2 ppd maximum. second hand exposure: No alcohol intake: never substance use type: does not use caffeine: Yes Type: coffee Number of servings: 2 Results Lab / Micro Data Result Diagrams: 07/13/21 16:10 07/13/21 16:10
[2021-07-13 18:36] VITALS: BP 169/72; BP 180/68; PULSE 65
[2021-07-13 18:42] VITALS: BMI 22.4
[2021-07-13 18:43] VITALS: BP 131/66; PULSE 68; RESP 16; TEMP 36.6; O2SAT 98
[2021-07-13] MEDS: 0.9% Normal Saline 1,000 ML 60 ML IV (19:58)
[2021-07-13 20:00] VITALS: PULSE 64
[2021-07-13 20:19] LABS: Troponin-I HS 11 pg/mL (3.0-54.0)
[2021-07-13 22:31] LABS: Troponin-I HS 11 pg/mL (3.0-54.0)
[2021-07-13 23:13] VITALS: BP 130/51; PULSE 65
[2021-07-13] MEDS: Metoprolol(XL)Succ 25 MG Tablet 12.5 MG PO (23:13)
[2021-07-13] MEDS: Atorvastatin Calcium 20 MG Tablet PO (23:13)
[2021-07-14] VITALS (10 sets, daily range): BP systolic 130–159; BP diastolic 51–79; PULSE 58–70; RESP 16; TEMP 36.4–36.9; O2SAT 92–98
[2021-07-14 02:23] LABS: Bedside Glucose 257 mg/dL (70-110)
--- NOTE | 2021-07-14 05:55 | ECHOD_ITS ---
Reason For Study: Syncope Procedure This was a 2D Doppler, Color Flow transthoracic echocardiogram. Patient sitting up due to SOB. The study was technically difficult. Exam performed portable in patient room. Left Ventricle Normal LV size. Left ventricular systolic function is normal. The estimated ejection fraction is 65 %. Diastolic function is indeterminate. No regional wall motion abnormalities noted. Right Ventricle Normal RV size. Normal systolic function. Atria Normal left atrium. Normal right atrium. No doppler evidence for ASD. Mitral Valve There is mild to moderate mitral annular calcification. Mild focal mitral valve calcification of the posterior leaflet. The mitral papillary muscle appears thickened and/or calcified. Trivial mitral valve insufficiency. Tricuspid Valve Normal tricuspid valve. Trivial tricuspid valve insufficiency. Right ventricular systolic pressure estimated to be 36 mmHg. Aortic Valve Trisinus/trileaflet aortic valve. Mild diffuse aortic valve thickening. Mild focal aortic valve calcification. Pulmonic Valve The pulmonic valve is not well visualized. Trivial pulmonic valve insufficiency. Great Vessels Normal sized aortic root. Calcified aortic root. Pericardium/Pleural No pericardial effusion. MMode/2D Measurements & Calculations LVIDd: 3.7 cm IVSd: 0.91 cm LA dimension: 3.3 cm LVIDs: 1.9 cm LVPWd: 0.92 cm FS: 48.2 % LAV(MOD-sp4): 28.9 ml LA A4 area: 12.5 cm2 Time Measurements MV dec time: 0.39 sec Doppler Measurements & Calculations MV E max damion: 61.9 cm/sec Lat Peak E' Damion: 5.2 cm/sec Med Peak E' Damion: 5.0 cm/sec MV A max damion: 105.7 cm/sec E/E' lat: 11.8 E/E' med: 12.3 MV E/A: 0.59 MV V2 max: 122.0 cm/sec MV P1/2t max damion: 74.5 cm/sec Ao V2 max: 116.2 cm/sec MV max P.0 mmHg MV P1/2t: 80.7 msec Ao max P.4 mmHg MV V2 mean: 57.9 cm/sec MV dec slope: 270.2 cm/sec2 MV mean P.6 mmHg MVA(P1/2t): 2.7 cm2 MV V2 VTI: 27.4 cm LV V1 max: 90.6 cm/sec PA V2 max: 64.1 cm/sec TR max damion: 288.5 cm/sec LV V1 max P.3 mmHg TR max P.3 mmHg ECHO/Echo Complete Interpretation Summary The study was technically difficult. Left ventricular systolic function is normal. The estimated ejection fraction is 65 %. There is mild to moderate mitral annular calcification. Mild focal mitral valve calcification of the posterior leaflet. The mitral papillary muscle appears thickened and/or calcified. Trivial mitral valve insufficiency. Trivial tricuspid valve insufficiency. Mild diffuse aortic valve thickening. Mild focal aortic valve calcification. Trivial pulmonic valve insufficiency. Calcified aortic root. Right ventricular systolic pressure estimated to be 36 mmHg. Diastolic function is indeterminate. Ordering Physician: Mckenna Hernandez Referring Physician: Zulma Corral Performed By: Jamal Oneill RCS
[2021-07-14 06:10] LABS: Absolute Lymphocyte Count 1.49 X10^3/uL (0.83-4.51); Absolute Neutrophil Count 4.4 X10^3/uL (2.0-7.7); Basophil# 0.07 X10^3/uL; Eosinophil# 0.44 X10^3/uL; Eosinophils% 6.2 % (0-5); Hematocrit 36.8 % (37-47); Hemoglobin 12.4 g/dL (12.0-15.0); Lymphocyte # 1.49 X10^3/ul (0.83-4.51); Mean Corp Hgb Conc 33.7 g/dL (32-36); Mean Corpuscular Hgb 30.7 pg (27.0-32.0); Mean Corpuscular Volume 91.1 fL (81-99); Mean Platelet Vol. 11.9 fl (6.2-12.0); Monocyte# 0.65 X10^3/uL; Monocyte% 9.1 % (0-10); NRBC Flagged by Analyzer 0 % (0-5); Neutrophil # 4.42 X10^3/uL (2.7-7.7); Neutrophil % 62.1 % (47-70); Platelet Count 191 K/mm3 (150-450); RBC Distribution Width CV 13.9 % (11.6-14.6); RBC Distribution Width SD 46.8 fl (35.1-43.9); Red Blood Count 4.04 M/mm3 (4.2-5.4); White Blood Count 7.1 K/mm3 (4.4-11.0)
[2021-07-14 06:53] LABS: Anion Gap 5 (5-15); BUN 26 mg/dL (7-18); BUN/Creat Ratio 29.2 RATIO (10-20); Calcium,Total 8.9 mg/dL (8.5-10.1); Chloride 102 mmol/L (98-107); Creatinine, Serum 0.89 mg/dL (0.55-1.02); EST Glomerular Filtration Rate 64 mL/min (>60); Est Glom Filt Rate - Afr Amer 77 mL/min (>60); Estimated Creatinine Clearance 34.81 ml/min; Glucose 213 mg/dL (74-106); Magnesium 1.3 mg/dL (1.6-2.6); Phosphorus 2.9 mg/dL (2.5-4.9); Potassium 4.4 mmol/L (3.5-5.1); Sodium Level 135 mmol/L (136-145); Thyroid Stim Hormone (TSH) 2.67 uIU/mL (0.358-3.74)
[2021-07-14] MEDS: Insulin Lispro 100 UNIT/ML INSULN.PEN 8 UNIT SC ×2 (08:36→12:09)
[2021-07-14] MEDS: Insulin Lispro 100 UNIT/ML INSULN.PEN SC ×2 (08:37→12:10)
[2021-07-14] MEDS: Enoxaparin 40 MG/0.4 ML Syringe SC (08:39)
[2021-07-14] MEDS: Losartan Potassium 50 MG Tablet PO (08:39)
[2021-07-14] MEDS: Leflunomide 10 MG TABLET PO (08:39)
[2021-07-14] MEDS: Metoprolol(XL)Succ 25 MG Tablet 12.5 MG PO (08:40)
[2021-07-14] MEDS: Aspirin E.C. 81 MG Tablet PO (08:40)
[2021-07-14] MEDS: Pantoprazole Sodium 40 MG Tablet PO (08:40)
[2021-07-14] MEDS: Citalopram 20 MG Tablet PO (08:41)
[2021-07-14] MEDS: traMADol 50 MG Tablet PO (08:52)
[2021-07-14 09:01] LABS: Bedside Glucose 227 mg/dL (70-110)
--- NOTE | 2021-07-14 10:52 | WOUNDNOTE ---
Was asked to see patient for wounds to buttocks. Pt has a history of previous pressure injuries to buttocks, but they are all currently healed at this time. no need for wound care at this time.
--- NOTE | 2021-07-14 11:13 | TREXTCAR_ITS ---
Documented by User: Rod DODGE 07/14/21 14:18 Diet 07/13/21 18:36 Diet: Cardiac: Calorie-Controlled Food consistency:: Regular Liquid Consistency:: Regular/Thin How many daily calories?: 1800 calorie Therapies Weight Bearing: Weight bearing as tolerated Physical Therapy: Eval and Treat Occupational Therapy: Eval and Treat Problem/Diagnosis (1) Syncope and collapse: Status: Acute (2) Fracture of superior ramus of left pubis: Status: Acute (3) Closed fracture of left inferior pubic ramus: Status: Acute (4) Insulin dependent type 2 diabetes mellitus: Status: Acute (5) Limited mobility: Status: Acute (6) Stage II pressure ulcer of right buttock: Status: Acute (7) Type 2 diabetes mellitus with other skin ulcer: Status: Acute Allergies/Procedures Done in Hospital Allergies metronidazole [From Flagyl] Allergy (Verified 07/13/21 18:00) PT UNSURE OF REACTION oxycodone HCl [From OxyContin] Allergy (Verified 07/13/21 18:00) hallucination lidocaine Adverse Reaction (Verified 07/13/21 18:01) Nausea Procedures: 2-D Echocardiogram and Transthoracic Echo Type of Care/Length of Stay Estimated LOS: Convalescent Care Less Than 30 days Type of Care Needed: Skilled Rehab Potential: Good Prognosis: Good Additional Orders/Day of Discharge Day of Discharge: 07/14/21 Discharge Plan Admission Admit Date/Time: 07/13/21 17:52 Primary Reason for Your Visit: Syncope Attending Provider: Itz Mazariegos Primary Care Provider: Zulma Corral Discharge Orders/Prescriptions Prescriptions: Continued pantoprazole 40 mg tablet,delayed release (DR/EC) 40 mg PO DAILY RF: 0 multivitamin tablet 1 tab PO DAILY RF: 0 metoprolol succinate 25 mg tablet extended release 24 hr 12.5 mg PO BID RF: 0 aspirin 81 mg tablet,delayed release (DR/EC) 81 mg PO DAILY RF: 0 leflunomide 10 MG tablet 10 mg PO DAILY RF: 0 Hold Instructions: Resume on 05/16/21. tramadol 50 MG tablet 50 mg PO BID PRN PRN (Reason: Pain 1-10 Or Fever) RF: 0 citalopram 20 MG tablet 20 mg PO DAILY RF: 0 simvastatin 40 mg tablet 40 mg PO QHS RF: 0 albuterol sulfate 1 INHALER inhaler 1 - 2 puff INHALATION Q6H PRN PRN (Reason: Asthma) RF: 0 insulin aspart U-100 100 UNITS/ML insulin pen 8 unit SC TID Qty: 0 RF: 0 acetaminophen 500 mg Tablet 500 mg PO BID PRN (Reason: Pain) RF: 0 ascorbic acid (vitamin C) 500 mg Tablet 500 mg PO DAILY RF: 0 cranberry 1,000 mg Capsule 2,000 mg PO DAILY RF: 0 cholecalciferol (vitamin D3) 25 mcg (1,000 unit) Capsule 25 mcg PO DAILY RF: 0 calcium-vitamin D3-vitamin K 500-100-40 mg-unit-mcg Tablet,Chewable 1 tab PO DAILY RF: 0 Black Elderberry 1,000 mg PO/SL DAILY RF: 0 amlodipine 2.5 mg tablet 2.5 mg PO DAILY RF: 0 clobetasol 0.05 % Cream 1 applic TOPICAL BID RF: 0 fluticasone furoate 50 mcg/actuation Blister With Device 50 mcg INHALATION DAILY PRN (Reason: ALLERGIES) RF: 0 insulin detemir U-100 100 UNIT/ML insulin pen 10 unit SQ QHS RF: 0 losartan 50 mg tablet 50 mg PO DAILY RF: 0 isosorbide mononitrate 30 mg tablet extended release 24 hr 15 mg PO DAILY Qty: 45 RF: 3 Referrals / Follow Up: Zulma Corral MD [Primary Care Provider] - Within 2 Weeks Everardo Saenz DO [STAFF PHYSICIAN] - Within 2 Weeks (FOR Right superior and inferior pubic rami fracture) Disposition Disposition (needs filled in before D/C Order can be placed): [facility] Documented by User: Dr. Itz Mazariegos MD 07/14/21 14:22 Routine Orders/Code Status Suppository Type: Dulcolax 10mg Suppository Frequency: Daily PRN Therapies Weight Bearing: Weight bearing as tolerated Extremity Affected:: Bilateral Lower Physical Therapy: Eval and Treat Occupational Therapy: Eval and Treat Speech Therapy: Eval and Treat Allergies/Procedures Done in Hospital Allergies metronidazole [From Flagyl] Allergy (Verified 07/13/21 18:00) PT UNSURE OF REACTION oxycodone HCl [From OxyContin] Allergy (Verified 07/13/21 18:00) hallucination lidocaine Adverse Reaction (Verified 07/13/21 18:01) Nausea Discharge Plan Admission Admit Date/Time: 07/13/21 17:52 Primary Reason for Your Visit: Syncope Attending Provider: Itz Mazariegos Primary Care Provider: Zulma Corral Discharge Orders/Prescriptions Prescriptions: Continued pantoprazole 40 mg tablet,delayed release (DR/EC) 40 mg PO DAILY RF: 0 multivitamin tablet 1 tab PO DAILY RF: 0 metoprolol succinate 25 mg tablet extended release 24 hr 12.5 mg PO BID RF: 0 aspirin 81 mg tablet,delayed release (DR/EC) 81 mg PO DAILY RF: 0 leflunomide 10 MG tablet 10 mg PO DAILY RF: 0 Hold Instructions: Resume on 05/16/21. tramadol 50 MG tablet 50 mg PO BID PRN PRN (Reason: Pain 1-10 Or Fever) RF: 0 citalopram 20 MG tablet 20 mg PO DAILY RF: 0 simvastatin 40 mg tablet 40 mg PO QHS RF: 0 albuterol sulfate 1 INHALER inhaler 1 - 2 puff INHALATION Q6H PRN PRN (Reason: Asthma) RF: 0 insulin aspart U-100 100 UNITS/ML insulin pen 8 unit SC TID Qty: 0 RF: 0 acetaminophen 500 mg Tablet 500 mg PO BID PRN (Reason: Pain) RF: 0 ascorbic acid (vitamin C) 500 mg Tablet 500 mg PO DAILY RF: 0 cranberry 1,000 mg Capsule 2,000 mg PO DAILY RF: 0 cholecalciferol (vitamin D3) 25 mcg (1,000 unit) Capsule 25 mcg PO DAILY RF: 0 calcium-vitamin D3-vitamin K 500-100-40 mg-unit-mcg Tablet,Chewable 1 tab PO DAILY RF: 0 Black Elderberry 1,000 mg PO/SL DAILY RF: 0 amlodipine 2.5 mg tablet 2.5 mg PO DAILY RF: 0 clobetasol 0.05 % Cream 1 applic TOPICAL BID RF: 0 fluticasone furoate 50 mcg/actuation Blister With Device 50 mcg INHALATION DAILY PRN (Reason: ALLERGIES) RF: 0 insulin detemir U-100 100 UNIT/ML insulin pen 10 unit SQ QHS RF: 0 losartan 50 mg tablet 50 mg PO DAILY RF: 0 isosorbide mononitrate 30 mg tablet extended release 24 hr 15 mg PO DAILY Qty: 45 RF: 3 Referrals / Follow Up: Zulma Corral MD [Primary Care Provider] - Within 2 Weeks Everardo Saenz DO [STAFF PHYSICIAN] - Within 2 Weeks (FOR Right superior and inferior pubic rami fracture) Disposition Disposition (needs filled in before D/C Order can be placed): [facility] Facility
--- NOTE | 2021-07-14 11:17 | CASEMGMT ---
SW spoke with therapy and patient needs to go somewhere for rehab. SW met with patient. Introduced self and role at [facility]. SW went over discharge plan with patient. SW provided patient with a list of SNF providers including quality and resource use data and consistent with the patient?s preferred geographic region, medical needs, and insurance network. Patient's first choice is [facility]. [facility] did talk with Kaitlynn and she will have a bed for patient . [facility] explained [place] for [place] [facility]. [facility] offered to call patient's daughter, Yazmin and patient said she would appreciate this. [facility] called patient's daughter Yazmin. GODWIN explained patient would like to go to [facility]. GODWIN answered her questions and provided her with a phone number for [facility] per her request. Patient will go tomorrow. Yazmin thanked [facility] for letting her know this information. Plan: [facility] under skilled level of care. Tila PRIEST
--- NOTE | 2021-07-14 11:45 | PN.HOSP_ITS ---
Documented by User: Rod DODGE 07/14/21 12:00 Subjective Subjective Patient is an 85-year-old female comfortably resting in bed, alert and orient x3. Denies any further lightheadedness, dizziness or further syncopal episodes since admission. Does not appear in acute distress. Objective Data Objective Data Vital Signs: Vital Signs Temp Pulse Resp BP Pulse Ox 98.4 F 65 16 159/79 H 92 07/14/21 08:48 07/14/21 08:48 07/14/21 08:48 07/14/21 05:19 07/14/21 09:19 Oxygen Flow Rate (L/min) 2 Oxygen Delivery Method Nasal Cannula Weight: 107 lb 2.314 oz Body Mass Index (BMI) 22.4 Intake & Output: Intake and Output for Last 24 Hours 07/12/21 07/13/21 07/14/21 23:59 23:59 23:59 Output Total 450 / 450 Balance -450 / -450 Lab / Micro Data Result Diagrams: 07/14/21 05:03 07/14/21 05:03 Labs: Laboratory Results - last 24 hr 07/13/21 16:10: WBC 11.7 H, RBC 4.43, Hgb 13.8, Hct 39.1, MCV 88.3, MCH 31.2, MCHC 35.3, RDW Std Deviation 45.7 H, RDW Coeff of Yaneli 14.1, Plt Count 247, MPV 11.7, Immature Gran % (Auto) 0.800, Neut % (Auto) 68.1, Lymph % (Auto) 20.2, [place] % (Auto) 6.7, Eos % (Auto) 3.3, Baso % (Auto) 0.9, Absolute Neuts (auto) 8.0 H, Absolute Lymphs (auto) 2.35, Nucleated RBC % 0 07/13/21 16:10: Sodium 136, Potassium 4.5, Chloride 101, Carbon Dioxide 29.0, Anion Gap 6, BUN 31 H, Creatinine 1.00, Estim Creat Clear Calc 30.65, Est GFR (MDRD) Af Amer 68, Est GFR (MDRD) Non-Af 56 L, BUN/Creatinine Ratio 31.0 H, Glucose 171 H, Calcium 9.5, Total Bilirubin 0.40, AST 31, ALT 25, Alkaline Phosphatase 59, Troponin I High Sens 12, Total Protein 7.4, Albumin 3.4, Globulin 4.0, Albumin/Globulin Ratio 0.8 L 07/13/21 19:50: Troponin I High Sens 11 07/13/21 22:00: Troponin I High Sens 11 07/13/21 23:02: POC Glucose 257 H 07/14/21 05:03: WBC 7.1, RBC 4.04 L, Hgb 12.4, Hct 36.8 L, MCV 91.1, MCH 30.7, MCHC 33.7, RDW Std Deviation 46.8 H, RDW Coeff of Yaneli 13.9, Plt Count 191, MPV 11.9, Immature Gran % (Auto) 0.600, Neut % (Auto) 62.1, Lymph % (Auto) 21.0, [place] % (Auto) 9.1, Eos % (Auto) 6.2 H, Baso % (Auto) 1.0, Absolute Neuts (auto) 4.4, Absolute Lymphs (auto) 1.49, Nucleated RBC % 0 07/14/21 05:03: Sodium 135 L, Potassium 4.4, Chloride 102, Carbon Dioxide 28.0, Anion Gap 5, BUN 26 H, Creatinine 0.89, Estim Creat Clear Calc 34.81, Est GFR (MDRD) Af Amer 77, Est GFR (MDRD) Non-Af 64, BUN/Creatinine Ratio 29.2 H, Glucose 213 H, Calcium 8.9, Phosphorus 2.9, Magnesium 1.3 L, TSH 2.67 07/14/21 08:30: POC Glucose 227 H Radiography Diagnostic Testing: Radiology Impression Hip/Pelvis X-Ray 07/13/21 15:32 IMPRESSION: Degenerative changes. Nondisplaced fractures of the left superior and inferior pubic rami. Electronically Signed: Colin Mae MD at 15:54 EST , Physical Exam Const alert, oriented x3 and no apparent distress HEENT head/scalp atraumatic and moist oral mucous membranes Head and Scalp: normocephalic Eyes PERRL and conjunctivae normal Neck no lymphadenopathy, supple and no JVD Resp normal respiratory effort, no retractions and no use of accessory muscles Cardio regular rate, regular rhythm and no JVD GI normal to inspection, nondistended, normoactive bowel sounds Extremity normal to inspection Skin no rashes or lesions noted Neuro CN's II-XII intact bilaterally Psych affect normal Assessment & Plan Assessment/Plan (1) Syncope and collapse: (2) Fracture of superior ramus of left pubis: QUALIFIERS: Encounter type: initial encounter Fracture type: closed Qualified Code(s): S32.512A - Fracture of superior rim of left pubis, initial encounter for closed fracture (3) Closed fracture of left inferior pubic ramus: QUALIFIERS: Encounter type: initial encounter Qualified Code(s): S32.592A - Other specified fracture of left pubis, initial encounter for closed fracture (4) Insulin dependent type 2 diabetes mellitus: (5) Limited mobility: (6) Stage II pressure ulcer of right buttock: (7) Type 2 diabetes mellitus with other skin ulcer: QUALIFIERS: Diabetes mellitus long term care social worker insulin use: with senior care use Qualified Code(s): E11.622 - Type 2 diabetes mellitus with other skin ulcer; Z79.4 - MCC (current) use of insulin PLAN: Day 1 Discharge planning: To discharge to TCU when medically ready. 1) syncope with fall No events reported overnight, cardiac monitoring shows patient is normal sinus rhythm, TSH and magnesium within normal limits. High-sensitivity troponins within normal limits. Currently awaiting echocardiogram, patient to discharge to TCU for ongoing skilled therapy and rehab needs, will continue gentle IV fluids for orthostasis. 2) fall with left inferior and superior pubic rami fractures X-ray of the hip/pelvis demonstrates nondisplaced left inferior and superior pubic rami fractures. Given nondisplaced nature of fracture, orthopedics consult not indicated. PT/OT ordered, continue as needed medications. Patient will discharge to TCU as above. 3) pressure ulcer right buttock Chronic wound for which patient follows with wound center. Wound nurse ordered. 4) DM2 Continue patient's home insulin regiment, Accu-Cheks with sliding scale insulin ordered. 5) HTN Continue metoprolol and losartan, hold isosorbide and amlodipine for orthostatic hypotension. 6) CAD Status post stent x3. Continue aspirin, statin and beta-marco a. DVT prophylaxis - Lovenox Patient seen by Rod Al PA-C, under the supervision of Dr. Mazariegos. Documented by User: Dr. Itz Mazariegos MD 07/14/21 14:24 Objective Data Lab / Micro Data Result Diagrams: 07/14/21 05:03 07/14/21 05:03 Assessment & Plan Assessment/Plan (1) Syncope and collapse: PLAN: This patient was seen in conjunction with ECHO Vasquez. I have independently interviewed and examined the patient and reviewed pertinent history, examination findings, laboratory and plan of management. I have reviewed the note and agree with the documented findings with the few additional points. In brief, patient is admitted for syncope and collapse. Please see discharge summary for details history, physical exam findings and hospital course I have discussed my assessment with ECHO Vasquez and orders have been reviewed.
[2021-07-14] MEDS: 0.9% Normal Saline 1,000 ML 60 ML IV (12:09)
[2021-07-14 12:21] LABS: Bedside Glucose 249 mg/dL (70-110)
--- NOTE | 2021-07-14 14:45 | CASEMGMT ---
Addendum entered by Tila Hays 07/14/21 14:55: [facility] notified patient's daughter that patient is going to [facility] today. Patient was sleeping. Tila PRIEST Original Note: Kaitlynn called [facility] and said they can take patient today. SW notified physician and he will send patient today. SW notified RN. SW will notify patient and/or her daughter. Plan: d/c to [facility] under skilled level of care. Tila PRIEST
--- NOTE | 2021-07-14 15:13 | CHAPLAIN ---
Type of Pastoral Visit _x__ Initial Visit ___ Follow-up Visit ___ On-call Visit ___ General Patient Visit ___ Spiritual Assessment ___ Family Conference ___ Bereavement ___ Rapid Response ___ Code Blue ___ Other (describe below) Pastoral Care Referral From _x__ Patient ___ Family ___ Nurse ___ Physician ___ [employer] Sales And Service Rep ___ Program Director ___ Other (describe below) Sacrament/Intervention _x__ Active listening ___ Anointing ___ Sikh ___ Bereavement ___ Communion _x__ [place] exploration ___ _x__ Life review _x__ Prayer ___ Reconciliation ___ Sacrament of Sick _x__ Supportive presence ___ Wedding ___ Other (describe below) Pastoral Comments patient very talkative and gives details about her health needs, her care, her family, and how she is expecting care
--- NOTE | 2021-07-14 15:18 | PCM.DC.SUM ---
Documented by User: Rod DODGE 07/14/21 15:23 Providers Date of Admission: 07/13/21 Date of Discharge: 07/14/21 Primary Care Physician: Dr. Zulma Corral MD Reason For Visit: SNYCOPE Diagnosis Discharge Diagnosis (1) Syncope and collapse: Status: Acute Code(s): R55 - Syncope and collapse Medications at Discharge Home Medications multivitamin 1 tab PO DAILY 05/30/17 pantoprazole 40 mg tablet,delayed release 40 mg PO DAILY 05/30/17 metoprolol succinate 25 mg tablet,extended release 24 hr 12.5 mg PO BID tab 01/11/18 citalopram 20 mg PO DAILY 04/28/20 leflunomide 10 mg PO DAILY 04/28/20 tramadol 50 mg PO BID PRN PRN 04/28/20 albuterol sulfate 1 - 2 puff INHALATION Q6H PRN PRN 05/28/20 isosorbide mononitrate 30 mg tablet,extended release 24 hr 15 mg PO DAILY #45 tab 06/08/20 aspirin 81 mg tablet,delayed release 81 mg PO DAILY 06/17/20 simvastatin 40 mg tablet 40 mg PO QHS tab 04/07/21 insulin aspart U-100 8 unit SC TID #0 ml 05/03/21 Black Elderberry 1,000 mg PO/SL DAILY 05/05/21 acetaminophen 500 mg PO BID PRN 05/05/21 amlodipine 2.5 mg PO DAILY 05/05/21 ascorbic acid (vitamin C) 500 mg PO DAILY 05/05/21 calcium-vitamin D3-vitamin K 1 tab PO DAILY 05/05/21 cholecalciferol (vitamin D3) 25 mcg PO DAILY 05/05/21 cranberry 2,000 mg PO DAILY 05/05/21 clobetasol 1 applic TOPICAL BID 06/04/21 fluticasone furoate 50 mcg INHALATION DAILY PRN 06/04/21 insulin detemir U-100 10 unit SQ QHS 07/13/21 losartan 50 mg PO DAILY 07/13/21 magnesium 400 mg PO TID #15 tab 07/14/21 Hospital Course Procedures 2-D Echocardiogram and Transthoracic echo Summary of Care Provided Minutes Spent on Discharge: 20 Hospital Course: Patient is an 85-year-old female who was admitted to [facility] [place] on 07/13/2021 for evaluation and management of syncope with fall and left superior and inferior pubic rami fractures. Orthostatic vitals were negative on admission and echocardiogram demonstrated normal LV size and systolic function, an EF of 65%, and RVSP of 36 mmHg and indeterminate diastolic dysfunction. Patient was assessed by PT/OT and was deemed appropriate for further skilled therapy. TCU accepted patient. She will be discharged to TCU today and all home medications will be continued. Patient to follow-up with primary care provider within the next 2 weeks. Patient seen by Rod Al PA-C, under the supervision of Dr. Mazariegos. Physical Exam Const alert, oriented x3 and no apparent distress HEENT normocephalic, head/scalp atraumatic and hearing grossly normal bilaterally Eyes PERRL and conjunctivae normal Neck no lymphadenopathy, supple and no JVD Resp normal respiratory effort, no retractions and no use of accessory muscles Cardio regular rate, regular rhythm and no JVD GI normal to inspection, nondistended, normoactive bowel sounds Extremity normal to inspection and no clubbing, cyanosis or edema Skin no rashes or lesions noted Neuro CN's II-XII intact bilaterally Psych affect normal Weight / BMI Weight Weight: 107 lb 2.314 oz Body Mass Index (BMI) 22.4 ABG / Lab / Microbiology Data Result Diagrams: 07/14/21 05:03 07/14/21 05:03 Laboratory: Laboratory Results - last 24 hr 07/13/21 16:10: WBC 11.7 H, RBC 4.43, Hgb 13.8, Hct 39.1, MCV 88.3, MCH 31.2, MCHC 35.3, RDW Std Deviation 45.7 H, RDW Coeff of Yaneli 14.1, Plt Count 247, MPV 11.7, Immature Gran % (Auto) 0.800, Neut % (Auto) 68.1, Lymph % (Auto) 20.2, [place] % (Auto) 6.7, Eos % (Auto) 3.3, Baso % (Auto) 0.9, Absolute Neuts (auto) 8.0 H, Absolute Lymphs (auto) 2.35, Nucleated RBC % 0 07/13/21 16:10: Sodium 136, Potassium 4.5, Chloride 101, Carbon Dioxide 29.0, Anion Gap 6, BUN 31 H, Creatinine 1.00, Estim Creat Clear Calc 30.65, Est GFR (MDRD) Af Amer 68, Est GFR (MDRD) Non-Af 56 L, BUN/Creatinine Ratio 31.0 H, Glucose 171 H, Calcium 9.5, Total Bilirubin 0.40, AST 31, ALT 25, Alkaline Phosphatase 59, Troponin I High Sens 12, Total Protein 7.4, Albumin 3.4, Globulin 4.0, Albumin/Globulin Ratio 0.8 L 07/13/21 19:50: Troponin I High Sens 11 07/13/21 22:00: Troponin I High Sens 11 07/13/21 23:02: POC Glucose 257 H 07/14/21 05:03: WBC 7.1, RBC 4.04 L, Hgb 12.4, Hct 36.8 L, MCV 91.1, MCH 30.7, MCHC 33.7, RDW Std Deviation 46.8 H, RDW Coeff of Yaneli 13.9, Plt Count 191, MPV 11.9, Immature Gran % (Auto) 0.600, Neut % (Auto) 62.1, Lymph % (Auto) 21.0, [place] % (Auto) 9.1, Eos % (Auto) 6.2 H, Baso % (Auto) 1.0, Absolute Neuts (auto) 4.4, Absolute Lymphs (auto) 1.49, Nucleated RBC % 0 07/14/21 05:03: Sodium 135 L, Potassium 4.4, Chloride 102, Carbon Dioxide 28.0, Anion Gap 5, BUN 26 H, Creatinine 0.89, Estim Creat Clear Calc 34.81, Est GFR (MDRD) Af Amer 77, Est GFR (MDRD) Non-Af 64, BUN/Creatinine Ratio 29.2 H, Glucose 213 H, Calcium 8.9, Phosphorus 2.9, Magnesium 1.3 L, TSH 2.67 07/14/21 08:30: POC Glucose 227 H 07/14/21 12:00: POC Glucose 249 H Microbiology: Microbiology 07/14/21 14:20 Nasal Secretion SARS-CoV-2 Antigen (Rapid) - Final Radiography Diagnostic Testing: Radiology Impression Hip/Pelvis X-Ray 07/13/21 15:32 IMPRESSION: Degenerative changes. Nondisplaced fractures of the left superior and inferior pubic rami. Electronically Signed: Colin Mae MD at 15:54 EST , Echocardiogram 07/14/21 05:55 Interpretation Summary The study was technically difficult. Left ventricular systolic function is normal. The estimated ejection fraction is 65 %. There is mild to moderate mitral annular calcification. Mild focal mitral valve calcification of the posterior leaflet. The mitral papillary muscle appears thickened and/or calcified. Trivial mitral valve insufficiency. Trivial tricuspid valve insufficiency. Mild diffuse aortic valve thickening. Mild focal aortic valve calcification. Trivial pulmonic valve insufficiency. Calcified aortic root. Right ventricular systolic pressure estimated to be 36 mmHg. Diastolic function is indeterminate. Ordering Physician: Mckenna Hernandez Referring Physician: Zulma Corral Performed By: Jamal Oneill RCS Meaningful Use Info Meaningful Use Diagnoses (Choose all that apply): None applicable Discharge Plan Admission Admit Date/Time: 07/13/21 17:52 Primary Reason for Your Visit: Syncope Attending Provider: Itz Mazariegos Primary Care Provider: Zulma Corral Instructions Additional Instructions / Restrictions: Check Magnesium on 07/15/21 in a.m. Discharge Orders/Prescriptions Prescriptions: New magnesium 200 mg tablet 400 mg PO TID Qty: 15 RF: 0 Continued pantoprazole 40 mg tablet,delayed release (DR/EC) 40 mg PO DAILY RF: 0 multivitamin tablet 1 tab PO DAILY RF: 0 metoprolol succinate 25 mg tablet extended release 24 hr 12.5 mg PO BID RF: 0 aspirin 81 mg tablet,delayed release (DR/EC) 81 mg PO DAILY RF: 0 leflunomide 10 MG tablet 10 mg PO DAILY RF: 0 Hold Instructions: Resume on 05/16/21. tramadol 50 MG tablet 50 mg PO BID PRN PRN (Reason: Pain 1-10 Or Fever) RF: 0 citalopram 20 MG tablet 20 mg PO DAILY RF: 0 simvastatin 40 mg tablet 40 mg PO QHS RF: 0 albuterol sulfate 1 INHALER inhaler 1 - 2 puff INHALATION Q6H PRN PRN (Reason: Asthma) RF: 0 insulin aspart U-100 100 UNITS/ML insulin pen 8 unit SC TID Qty: 0 RF: 0 acetaminophen 500 mg Tablet 500 mg PO BID PRN (Reason: Pain) RF: 0 ascorbic acid (vitamin C) 500 mg Tablet 500 mg PO DAILY RF: 0 cranberry 1,000 mg Capsule 2,000 mg PO DAILY RF: 0 cholecalciferol (vitamin D3) 25 mcg (1,000 unit) Capsule 25 mcg PO DAILY RF: 0 calcium-vitamin D3-vitamin K 500-100-40 mg-unit-mcg Tablet,Chewable 1 tab PO DAILY RF: 0 Black Elderberry 1,000 mg PO/SL DAILY RF: 0 amlodipine 2.5 mg tablet 2.5 mg PO DAILY RF: 0 clobetasol 0.05 % Cream 1 applic TOPICAL BID RF: 0 fluticasone furoate 50 mcg/actuation Blister With Device 50 mcg INHALATION DAILY PRN (Reason: ALLERGIES) RF: 0 insulin detemir U-100 100 UNIT/ML insulin pen 10 unit SQ QHS RF: 0 losartan 50 mg tablet 50 mg PO DAILY RF: 0 isosorbide mononitrate 30 mg tablet extended release 24 hr 15 mg PO DAILY Qty: 45 RF: 3 Referrals / Follow Up: Zulma Corral MD [Primary Care Provider] - Within 2 Weeks Everardo Saenz DO [STAFF PHYSICIAN] - Within 2 Weeks (FOR Right superior and inferior pubic rami fracture) Disposition Disposition (needs filled in before D/C Order can be placed): [facility] Facility Documented by User: Dr. Itz Mazariegos MD 07/14/21 16:14 Providers Date of Admission: 07/13/21 Reason For Visit: SNYCOPE Medications at Discharge Home Medications multivitamin 1 tab PO DAILY 05/30/17 pantoprazole 40 mg tablet,delayed release 40 mg PO DAILY 05/30/17 metoprolol succinate 25 mg tablet,extended release 24 hr 12.5 mg PO BID tab 01/11/18 citalopram 20 mg PO DAILY 04/28/20 leflunomide 10 mg PO DAILY 04/28/20 tramadol 50 mg PO BID PRN PRN 04/28/20 albuterol sulfate 1 - 2 puff INHALATION Q6H PRN PRN 05/28/20 isosorbide mononitrate 30 mg tablet,extended release 24 hr 15 mg PO DAILY #45 tab 06/08/20 aspirin 81 mg tablet,delayed release 81 mg PO DAILY 06/17/20 simvastatin 40 mg tablet 40 mg PO QHS tab 04/07/21 insulin aspart U-100 8 unit SC TID #0 ml 05/03/21 Black Elderberry 1,000 mg PO/SL DAILY 05/05/21 acetaminophen 500 mg PO BID PRN 05/05/21 amlodipine 2.5 mg PO DAILY 05/05/21 ascorbic acid (vitamin C) 500 mg PO DAILY 05/05/21 calcium-vitamin D3-vitamin K 1 tab PO DAILY 05/05/21 cholecalciferol (vitamin D3) 25 mcg PO DAILY 05/05/21 cranberry 2,000 mg PO DAILY 05/05/21 clobetasol 1 applic TOPICAL BID 06/04/21 fluticasone furoate 50 mcg INHALATION DAILY PRN 06/04/21 insulin detemir U-100 10 unit SQ QHS 07/13/21 losartan 50 mg PO DAILY 07/13/21 magnesium 400 mg PO TID #15 tab 07/14/21 Hospital Course Summary of Care Provided Hospital Course: This patient was seen in conjunction with ECHO Vasquez. I have independently interviewed and examined the patient and reviewed pertinent history, examination findings, laboratory and plan of management. I have reviewed the note and agree with the documented findings with the few additional points. In brief, patient is 85-year-old female admitted for syncope and fall. Her syncope seems more vasovagal or hypomagnesemia. Twelve-lead EKG shows sinus rhythm with occasional PVCs, QTC 430 ms. Orthostatic blood pressure negative. She has history of coronary artery status post 3 stents but denies any prior history of GA. Had a stress due to abnormal stress test. 2D echo shows EF 65%, RV is 36 mmHg. Was found to have a closed fracture of left superior inferior pubic rami. PT and OT. Labs reviewed serum sodium 135 mild hyponatremia. Serum potassium and bicarb level normal. Patient was restrained with IV fluid severe hypomagnesemia, magnesium very low 1.2. Patient had 4 g IV magnesium but is still increased to 1.3. Patient is discharged on magnesium oxide 400 mg 3 times daily for 5 days. Advised recheck magnesium on 2:24 AM. Patient is getting discharged to TCU Discharge medication reconciliation done. Discharge follow-up instructions completed. Discharge process discussed with the patient and all questions were answered to patient's satisfaction. Total time spent, exact 35 minutes on discharge meds reconciliation, examination, coordination of care with nurses and ancillary staff, review of imaging and blood test and discussion with the patient on follow-up instructions I have discussed my assessment with ECHO Vasquez and orders have been reviewed. Physical Exam Narrative Seen and examined Patient going in the kitchen and suddenly passed out with fall. Denies chest pain, shortness of breath. Patient has intermittent mild headache mainly on the right orbital symptoms back probably due to refractory error but denies migraine headache. There was no weakness but she thinks he passed out for short time. She recovered her consciousness but felt left groin pain Physical exam General: Alert, Oriented x3, Cooperative HEENT: Atraumatic, PERRLA, EOMI, Normocephalic Oral: No Gingival or Mucosal Lesions/ Ulcerations Neck: Supple, No JVD, Negative Carotid Bruits Lungs: Air entry diminished in bilateral lung bases. No crepitation/rhonchi Cardiovascular: Sinus rhythm with PVCs , Normal S1, Normal S2, no murmur. Abdomen: Bowel Sounds Present, Soft, Non Tender, Non-Distended : No renal angle tenderness. No suprapubic tenderness. Extremities: No edema, Capillary Refill Less than 3 Seconds Skin: No rashes, No breakdown Musculoskeletal: Tenderness about left groin, superior and inferior pubic rami fracture. ROM restricted over hip joint. Neurological: Cranial nerves II-XII grossly intact, DTR 2+/4 and Symmetrical, Neuro grossly intact Psych/Mental Status: Normal Affect, Appropriate. ABG / Lab / Microbiology Data Result Diagrams: 07/14/21 05:03 07/14/21 05:03 Discharge Plan Admission Admit Date/Time: 07/13/21 17:52 Primary Reason for Your Visit: Syncope Attending Provider: Itz Mazariegos Primary Care Provider: Zulma Corral Instructions Additional Instructions / Restrictions: Check Magnesium on 07/15/21 in a.m. Discharge Orders/Prescriptions Prescriptions: New magnesium 200 mg tablet 400 mg PO TID Qty: 15 RF: 0 Continued pantoprazole 40 mg tablet,delayed release (DR/EC) 40 mg PO DAILY RF: 0 multivitamin tablet 1 tab PO DAILY RF: 0 metoprolol succinate 25 mg tablet extended release 24 hr 12.5 mg PO BID RF: 0 aspirin 81 mg tablet,delayed release (DR/EC) 81 mg PO DAILY RF: 0 leflunomide 10 MG tablet 10 mg PO DAILY RF: 0 Hold Instructions: Resume on 05/16/21. tramadol 50 MG tablet 50 mg PO BID PRN PRN (Reason: Pain 1-10 Or Fever) RF: 0 citalopram 20 MG tablet 20 mg PO DAILY RF: 0 simvastatin 40 mg tablet 40 mg PO QHS RF: 0 albuterol sulfate 1 INHALER inhaler 1 - 2 puff INHALATION Q6H PRN PRN (Reason: Asthma) RF: 0 insulin aspart U-100 100 UNITS/ML insulin pen 8 unit SC TID Qty: 0 RF: 0 acetaminophen 500 mg Tablet 500 mg PO BID PRN (Reason: Pain) RF: 0 ascorbic acid (vitamin C) 500 mg Tablet 500 mg PO DAILY RF: 0 cranberry 1,000 mg Capsule 2,000 mg PO DAILY RF: 0 cholecalciferol (vitamin D3) 25 mcg (1,000 unit) Capsule 25 mcg PO DAILY RF: 0 calcium-vitamin D3-vitamin K 500-100-40 mg-unit-mcg Tablet,Chewable 1 tab PO DAILY RF: 0 Black Elderberry 1,000 mg PO/SL DAILY RF: 0 amlodipine 2.5 mg tablet 2.5 mg PO DAILY RF: 0 clobetasol 0.05 % Cream 1 applic TOPICAL BID RF: 0 fluticasone furoate 50 mcg/actuation Blister With Device 50 mcg INHALATION DAILY PRN (Reason: ALLERGIES) RF: 0 insulin detemir U-100 100 UNIT/ML insulin pen 10 unit SQ QHS RF: 0 losartan 50 mg tablet 50 mg PO DAILY RF: 0 isosorbide mononitrate 30 mg tablet extended release 24 hr 15 mg PO DAILY Qty: 45 RF: 3 Referrals / Follow Up: Zulma Corral MD [Primary Care Provider] - Within 2 Weeks Everardo Saenz DO [STAFF PHYSICIAN] - Within 2 Weeks (FOR Right superior and inferior pubic rami fracture) Disposition Disposition (needs filled in before D/C Order can be placed): [facility] Facility Charges/Coding Visit Charges OBSV E&M: 85603 Observation care discharge
[2021-08-19 16:26] LABS: Bedside Glucose 142 mg/dL (74-106)
== END 2021-07-14 14:17 | disposition skilled nursing facility (03) ==
LOC: ED 17:11 → PCU 18:08
PROVIDERS: Nurse Practitioner Family; Admitting Provider Family Medicine; Emergency Provider Emergency Medicine; PCP Internal Medicine; Visit Provider Internal Medicine
DX: S32.512A Fracture of superior rim of left pubis, initial encounter for closed fracture (principal); E11.622 Type 2 diabetes mellitus with other skin ulcer; L89.312 Pressure ulcer of right buttock, stage 2; S32.592A Other specified fracture of left pubis, initial encounter for closed fracture; J44.9 Chronic obstructive pulmonary disease, unspecified; Z79.4 Long term (current) use of insulin; R55 Syncope and collapse; Y93.9 Activity, unspecified; R94.39 Abnormal result of other cardiovascular function study; G47.33 Obstructive sleep apnea (adult) (pediatric); F41.9 Anxiety disorder, unspecified; K21.9 Gastro-esophageal reflux disease without esophagitis; G89.29 Other chronic pain; I10 Essential (primary) hypertension; I25.10 Atherosclerotic heart disease of native coronary artery without angina pectoris; M25.512 Pain in left shoulder; F32.A Depression, unspecified; E78.5 Hyperlipidemia, unspecified; Y99.9 Unspecified external cause status; W19.XXXA Unspecified fall, initial encounter; Y92.000 Kitchen of unspecified non-institutional (private) residence as the place of occurrence of the external cause; Z79.82 Long term (current) use of aspirin; Z87.891 Personal history of nicotine dependence; Z79.899 Other long term (current) drug therapy
CPT/HCPCS: 36415; 73502; 80048; 80053; 82962; 83735; 84100; 84443; 84484; 85025; 87426; 93005; 93306; 96372; 96374; 96375; 96376; 97162; 97166; 99218; 99251; 99285; J7030; A4216; G0378; G0463; J2405

== ENCOUNTER 2021-07-14 16:28 | Inpatient (IN) | payer MEDICARE, OTHER, SELFPAY ==
[2021-07-14 16:34] VITALS: BP 143/81; PULSE 66; RESP 16; TEMP 37.1; O2SAT 95; BMI 23.2
[2021-07-14 16:45] LABS: Bedside Glucose 182 mg/dL (70-110)
--- NOTE | 2021-07-14 18:13 | HP.PCM_ITS ---
HPI - General General Date of Admission: 07/14/21 HPI Narrative 07/13/2021 ESTUARDO MOODY, is a 85 Female who presents to [facility] Emergency Department with fall. Walking to kitchen, syncope, fall, woke up on floor. X-ray pelvis shows left pelvic fracture. Morphine, Zofran given. 07/13/2021 Admit to Hospital. Evaluate for syncope, Hold blood pressure medications for syncope. PT/OT, Weight bearing as tolerated for left pelvic fracture. 07/14/2021 Echo Left ventricular systolic function normal. EF 65%. Right ventricular systolic pressure 36mm HG. 07/14/2021 Doing okay. hall monitor normal sinus rhythm. Troponin negative. IV Fluids given for orthostasis. 07/14/2021 Admit to TCU with debility, here for rehabilitation, strengthening, prior to discharge home alone. [facility] Medical History Abnormal stress test Acute respiratory failure with hypoxia Arteriovenous fistula, acquired, of heart Asthma Atherosclerosis of mo[place] coronary artery of [place] heart without angina pectoris Bilateral carotid artery stenosis Cerebral artery occlusion Chest pain COPD (chronic obstructive pulmonary disease) Coronary artery anomaly Debility Diabetes Epigastric pain Essential (primary) hypertension Falls Former smoker GERD (gastroesophageal reflux disease) Insulin dependent type 2 diabetes mellitus Limited mobility Presence of stent in coronary artery (~02/27/18) Pure hypercholesterolemia Sleep apnea Spinal stenosis Stage II pressure ulcer of left buttock Stage II pressure ulcer of right buttock Stage II pressure ulcer of sacral region TIA (transient ischemic attack) Type 2 diabetes mellitus with other skin ulcer Type 2 diabetes mellitus, with long-term current use of insulin Home Medications multivitamin 1 tab PO DAILY 05/30/17 [History Last Taken 07/13/21] pantoprazole 40 mg tablet,delayed release 40 mg PO DAILY 05/30/17 [History Last Taken 07/13/21] metoprolol succinate 25 mg tablet,extended release 24 hr 12.5 mg PO BID tab 01/11/18 [History Last Taken 07/13/21] citalopram 20 mg PO DAILY 04/28/20 [History Last Taken 07/13/21] leflunomide 10 mg PO DAILY 04/28/20 [History Last Taken 07/13/21] tramadol 50 mg PO BID PRN PRN 04/28/20 [History Last Taken 07/13/21] albuterol sulfate 1 - 2 puff INHALATION Q6H PRN PRN 05/28/20 [History Last Taken Unknown] isosorbide mononitrate 30 mg tablet,extended release 24 hr 15 mg PO DAILY #45 tab 06/08/20 [Rx Last Taken 07/13/21] aspirin 81 mg tablet,delayed release 81 mg PO DAILY 06/17/20 [History Last Taken 07/13/21] simvastatin 40 mg tablet 40 mg PO QHS tab 04/07/21 [History Last Taken 07/12/21] insulin aspart U-100 8 unit SC TID #0 ml 05/03/21 [Rx Last Taken 07/13/21] Black Elderberry 1,000 mg PO/SL DAILY 05/05/21 [History Last Taken 07/13/21] acetaminophen 500 mg PO BID PRN 05/05/21 [History Last Taken 07/12/21] amlodipine 2.5 mg PO DAILY 05/05/21 [History Last Taken 07/13/21] ascorbic acid (vitamin C) 500 mg PO DAILY 05/05/21 [History Last Taken 07/13/21] calcium-vitamin D3-vitamin K 1 tab PO DAILY 05/05/21 [History Last Taken 07/13/21] cholecalciferol (vitamin D3) 25 mcg PO DAILY 05/05/21 [History Last Taken 07/13/21] cranberry 2,000 mg PO DAILY 05/05/21 [History Last Taken 07/13/21] clobetasol 1 applic TOPICAL BID 06/04/21 [History Last Taken 07/13/21] fluticasone furoate 50 mcg INHALATION DAILY PRN 06/04/21 [History Last Taken Unknown] insulin detemir U-100 10 unit SQ QHS 07/13/21 [History Last Taken 07/12/21] losartan 50 mg PO DAILY 07/13/21 [History Last Taken 07/13/21] magnesium 400 mg PO TID 07/14/21 [History Last Taken Unknown] Allergy/AdvReac Type Severity Reaction Status Date / Time metronidazole [From Flagyl] Allergy PT UNSURE Verified 07/13/21 18:00 OF REACTION oxycodone HCl Allergy hallucinati Verified 07/13/21 18:00 [From OxyContin] on lidocaine AdvReac Nausea Verified 07/13/21 18:01 Family History Father CAD (coronary artery disease) Myocardial infarction Mother Cancer Sister Breast cancer Surgical History H/O tubal ligation History of coronary artery stent placement History of cystoscopy (06/03/20) Hx of cardiac cath Presence of coronary angioplasty implant and graft (~02/27/18) S/p bilateral carpal tunnel release Social History household members: none housing: apartment current occupational status: retired leisure activities: games and other Smoking Status: Former smoker how long ago did patient quit smokin years ago, when smoking 1/4-1/2 ppd maximum. second hand exposure: No alcohol intake: never substance use type: does not use caffeine: Yes Type: coffee Number of servings: 2 ROS Constitutional Constitutional: Denies chills, fever(s) or weight gain ENT HEENT: Denies headache(s), nasal congestion or nasal discharge Cardiovascular Cardiovascular: Denies chest pain or palpitations Respiratory/Chest Respiratory/Chest: Denies cough, excessive phlegm production or shortness of breath with exertion Gastrointestinal Gastrointestinal: Denies abdominal pain, nausea or vomiting Genitourinary Genitourinary: Denies dysuria Musculoskeletal Musculoskeletal: Denies joint pain or joint swelling Integumentary Integumentary: Denies rash or wounds Neurologic Neurologic: Denies focal weakness, numbness or tingling Psychiatric Psychiatric: Denies anxiety, auditory hallucinations, depression, homicidal ideation or suicidal ideation Vital Signs Vital Signs Vital Signs: 07/14/21 16:34 07/14/21 17:17 Temperature 98.8 F Temperature Source Temporal Pulse Rate 66 Pulse Rhythm Regular Respiratory Rate 16 Respiratory Effort Normal Respiratory Depth Normal Respiratory Pattern Normal Blood Pressure 143/81 H Blood Pressure Mean 101 Blood Pressure Source Monitor Blood Pressure Position Semi-Fowlers Blood Pressure Location Left Arm Pulse Ox 95 Oxygen Delivery Method Room Air Room Air Weight Weight: 50.5 kg Body Mass Index (BMI) 23.2 Physical Exam Const alert and oriented x3 General Appearance: cooperative HEENT normocephalic Eyes PERRL and EOMs intact bilaterally Neck supple, no JVD and no carotid bruits Resp normal respiratory effort, normal air movement and clear to auscultation bilaterally Cardio regular rate and regular rhythm GI normal to inspection, nondistended, normoactive bowel sounds, non-tender and non-distended Extremity normal capillary refill General Extremity: Negative for edema Skin no rashes or lesions noted General Skin Exam: no breakdown Psych affect normal Appearance: appropriate Results Lab / Micro Data Labs: Laboratory Results - last 24 hr 07/14/21 16:42: POC Glucose 182 H Assessment & Plan Assessment/Plan (1) Debility: (2) Syncope: (3) Fall: (4) Fracture of left pelvis: (5) Coronary artery disease: (6) Hypertension: (7) Diabetes mellitus: (8) Hyperlipidemia: (9) Left rotator cuff tear: (10) Gastroesophageal reflux disease: (11) Depression: (12) Osteoarthritis: (13) Vitamin D deficiency: (14) Allergic rhinitis: PLAN: 85 year old female with below past medical history hospitalized for fall, syncope, complicated by left pelvis fracture, admitted to TCU with debility, here for rehabilitation, strengthening, prior to discharge home alone. * Debility - PT/OT. * Pain - Tylenol 1000mg q6h prn pain (1-3), Tramadol 50mg q6h prn pain (4-5), Oxycodone 2.5mg q4h prn pain (6-10). * Bowel - Miralax 17gm daily, Senna/colace 1 tablet bid, Dulcolax 10mg daily prn. * Adult immunization - Administer prevnar 20, fluzone, covid19 vaccine as appropriate. * DVT prophylaxis - Lovenox 30mg sc daily. * Asthma - Albuterol 1-2 puff q6h prn. * Hypertension - Metoprolol succinate 12.5mg bid, Losartan 50mg daily, Amlodipine 2.5mg daily. * Vitamin C deficiency - Vitamin C 500mg daily. * Stroke - Aspirin 81mg daily. * Coronary artery disease - Metoprolol succinate 12.5mg bid, Losartan 50mg daily, Imdur 15mg daily, Aspirin 81mg daily. * Calcium deficiency - Calcium D 1 tablet daily. * Vitamin D deficiency - D3 25mcg daily. 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 * Dermatitis - Clobetasol cream topical bid. * Allergic rhinitis - Flonase 1 spray nasal daily . * Diabetes Mellitus II - Lantus 10 units qhs, Humalog 8 units tid. * Rheum - Leflunomide 10mg daily. * Hypomagnesemia - Magnesium 400mg tid. * Nutrition - MVI daily. * GERD - Pantoprazole 40mg daily.. * Hyperlipidemia - Atorvastatin 40mg qhs.
[2021-07-14 21:15] VITALS: BP 154/64; PULSE 69
[2021-07-14] MEDS: Metoprolol(XL)Succ 25 MG Tablet 12.5 MG PO (21:15)
[2021-07-14] MEDS: Atorvastatin Calcium 20 MG Tablet PO (21:15)
[2021-07-14] MEDS: Senna/Docusate Sodium 1 Tablet PO (21:16)
[2021-07-14 21:26] LABS: Bedside Glucose 298 mg/dL (70-110)
[2021-07-14] MEDS: Acetaminophen 500 MG Tablet 1000 MG PO (21:27)
[2021-07-15 05:52] LABS: Absolute Lymphocyte Count 1.61 X10^3/uL (0.83-4.51); Absolute Neutrophil Count 5.3 X10^3/uL (2.0-7.7); Basophil# 0.07 X10^3/uL; Basophil% 0.9 % (0-1); Eosinophils% 3.7 % (0-5); Hematocrit 37.1 % (37-47); Hemoglobin 12.4 g/dL (12.0-15.0); Lymphocyte # 1.61 X10^3/ul (0.83-4.51); Lymphocyte % 20.1 % (19-41); Mean Corp Hgb Conc 33.4 g/dL (32-36); Mean Corpuscular Hgb 29.8 pg (27.0-32.0); Mean Corpuscular Volume 89.2 fL (81-99); Mean Platelet Vol. 11.5 fl (6.2-12.0); Monocyte# 0.74 X10^3/uL; Monocyte% 9.2 % (0-10); NRBC Flagged by Analyzer 0 % (0-5); Neutrophil # 5.26 X10^3/uL (2.7-7.7); Neutrophil % 65.7 % (47-70); Platelet Count 182 K/mm3 (150-450); RBC Distribution Width CV 13.9 % (11.6-14.6); RBC Distribution Width SD 45.1 fl (35.1-43.9); Red Blood Count 4.16 M/mm3 (4.2-5.4)
[2021-07-15] MEDS: Ascorbic Acid 500 MG Tablet PO (06:08)
[2021-07-15] MEDS: Magnesium Chloride 64 MG Delay Rel.Tablet 128 MG PO (06:08)
[2021-07-15] MEDS: Cholecalciferol (VIT D3) 25 MCG TABLET (1,000 UNITS) PO (06:08)
[2021-07-15] MEDS: Pantoprazole Sodium 40 MG Tablet PO (06:08)
[2021-07-15] MEDS: amLODIPine 2.5 MG Tablet PO (06:08)
[2021-07-15] MEDS: Bisacodyl 5 MG Tablet 10 MG PO (06:08)
[2021-07-15 06:09] VITALS: BP 183/74; PULSE 65
[2021-07-15] MEDS: Citalopram 20 MG Tablet PO (06:09)
[2021-07-15] MEDS: Isosorbide Mononitrate 30 MG Tablet 15 MG PO (06:09)
[2021-07-15] MEDS: Losartan Potassium 50 MG Tablet PO (06:09)
[2021-07-15] MEDS: Leflunomide 10 MG TABLET PO (06:09)
[2021-07-15] MEDS: Metoprolol(XL)Succ 25 MG Tablet 12.5 MG PO ×2 (06:09→17:57)
[2021-07-15] MEDS: Enoxaparin 30 MG/0.3 ML Syringe SC (06:15)
[2021-07-15] MEDS: Clobetasol Propionate 0.05% Cream 1 APPLIC TOPICAL ×2 (06:15→17:58)
[2021-07-15] MEDS: 0.9% Saline Lock 10 ML Syringe IV ×2 (06:18→18:46)
[2021-07-15 06:26] LABS: Bedside Glucose 197 mg/dL (70-110)
[2021-07-15 06:31] LABS: Anion Gap 5 (5-15); BUN 21 mg/dL (7-18); BUN/Creat Ratio 24.1 RATIO (10-20); Calcium,Total 8.9 mg/dL (8.5-10.1); Chloride 102 mmol/L (98-107); Creatinine, Serum 0.87 mg/dL (0.55-1.02); EST Glomerular Filtration Rate 65 mL/min (>60); Est Glom Filt Rate - Afr Amer 79 mL/min (>60); Glucose 175 mg/dL (74-106); Magnesium 1.2 mg/dL (1.6-2.6); Sodium Level 136 mmol/L (136-145)
[2021-07-15] MEDS: Insulin Lispro 100 UNIT/ML INSULN.PEN 8 UNIT SC ×3 (07:32→17:57)
[2021-07-15] MEDS: Multivitamins,Therapeutic Tablet 1 TABLET PO (07:35)
[2021-07-15] MEDS: Aspirin E.C. 81 MG Tablet PO (07:35)
[2021-07-15] MEDS: Calcium Carb/Vitamin D 1 TABLET Tablet PO (07:35)
[2021-07-15] MEDS: Tuberculin,Purif.prot.deriv. 50 TU/ML Vial 0.1 ML ID (09:29)
[2021-07-15 10:56] LABS: Bedside Glucose 282 mg/dL (70-110)
[2021-07-15 14:00] VITALS: BP 150/68; PULSE 70; RESP 12; TEMP 36.6; O2SAT 96
--- NOTE | 2021-07-15 14:46 | NURSING ---
pt's right eye red, crusty and dry. Pt reports seeing Dr. Hill her eye doctor earlier this month for it. Stated she was getting eye drops for 7 days and was supposed to f/u with Dr. Hill if tx was ineffective but then pt was admitted to hospital. Dr. Hill was called and updated on pt not feeling relief of sx and recommends starting ophthalmic ofloxacin 1 gtt to right eye x7 days, message left for Dr. Arias.
[2021-07-15 16:01] LABS: Bedside Glucose 281 mg/dL (70-110)
--- NOTE | 2021-07-15 16:08 | NURSING ---
Resident and daughter, Yazmin, notified of 2 residents tested positive for COVID.
[2021-07-15 17:57] VITALS: PULSE 70
[2021-07-15] MEDS: Menthol/Lanolin/Calamine/Znox 113 GM Tube 1 APPLIC TOPICAL (18:06)
--- NOTE | 2021-07-15 18:28 | NURSING ---
pt having increased frequency with new onset of confusion and dizziness, UA & CS ordered.
[2021-07-15] MEDS: 0.9% Normal Saline 1,000 ML 999 ML IV (18:44)
[2021-07-15] MEDS: Ciprofloxacin 0.3% 2.5ml Bottle 1 DRP RIGHT EYE ×2 (19:01→21:31)
[2021-07-15 19:07] LABS: Bacteria 0 SEEN /hpf (None Seen); Mucous, Urine 0 SEEN /hpf (<or=2+); Red Blood Cells-Urine 0 SEEN /hpf (0-5); Squamous Epithelial Cells - UA 0 SEEN /hpf (5-10); White Blood Cells 0 SEEN /hpf (0-5)
[2021-07-15 19:22] LABS: Color, Urine Yellow (Yellow); Glucose, Dipstick Normal (Normal); Ketone-Dipstick Negative (Negative); Leukocyte Esterase-Dipstick Negative /ul (Negative); Nitrite-Dipstick Negative (Negative); Occult Blood-Urine Negative /ul (Negative); Protein-Dipstick Negative (Negative); Specific Gravity, Urine 1.005 (1.002-1.030); Urine Bilirubin Dipstick Negative (Negative); Urine Clarity Clear (Clear); Urine Urobilinogen Normal (Normal); Urine pH 6.5 (5.0 - 8.0)
[2021-07-15 21:31] LABS: Bedside Glucose 197 mg/dL (70-110)
[2021-07-15] MEDS: Atorvastatin Calcium 20 MG Tablet PO (21:31)
[2021-07-15 21:33] VITALS: PULSE 72; RESP 16; O2SAT 97
[2021-07-15] MEDS: traMADol 50 MG Tablet PO (21:35)
[2021-07-16 05:05] VITALS: BP 161/69; PULSE 70
[2021-07-16] MEDS: Metoprolol(XL)Succ 25 MG Tablet 12.5 MG PO (05:05)
[2021-07-16] MEDS: Ciprofloxacin 0.3% 2.5ml Bottle 1 DRP RIGHT EYE ×5 (05:05→21:18)
[2021-07-16] MEDS: Enoxaparin 30 MG/0.3 ML Syringe SC (05:06)
[2021-07-16] MEDS: Clobetasol Propionate 0.05% Cream 1 APPLIC TOPICAL ×2 (05:08→17:55)
[2021-07-16] MEDS: Menthol/Lanolin/Calamine/Znox 113 GM Tube 1 APPLIC TOPICAL ×2 (05:11→17:52)
[2021-07-16] MEDS: 0.9% Saline Lock 10 ML Syringe IV ×2 (05:14→10:15)
--- NOTE | 2021-07-16 05:17 | NURSING ---
Patient offered a snack or crackers with AM medication. Patient refused and stated, It's only one pill, I think I will be fine.
[2021-07-16 05:30] VITALS: RESP 16; TEMP 37.1; O2SAT 94
[2021-07-16 06:21] LABS: Bedside Glucose 237 mg/dL (70-110)
[2021-07-16] MEDS: Pantoprazole Sodium 40 MG Tablet PO (08:38)
[2021-07-16] MEDS: Aspirin E.C. 81 MG Tablet PO (08:38)
[2021-07-16] MEDS: Losartan Potassium 50 MG Tablet PO (08:39)
[2021-07-16] MEDS: Isosorbide Mononitrate 30 MG Tablet 15 MG PO (08:39)
[2021-07-16] MEDS: Citalopram 20 MG Tablet PO (08:39)
[2021-07-16] MEDS: Magnesium Chloride 64 MG Delay Rel.Tablet 128 MG PO (08:39)
[2021-07-16] MEDS: Multivitamins,Therapeutic Tablet 1 TABLET PO (08:40)
[2021-07-16] MEDS: Cholecalciferol (VIT D3) 25 MCG TABLET (1,000 UNITS) PO (08:40)
[2021-07-16] MEDS: Calcium Carb/Vitamin D 1 TABLET Tablet PO (08:40)
[2021-07-16] MEDS: Polyethylene Glycol 3350 17 GM PACKET PO (08:40)
[2021-07-16] MEDS: Ascorbic Acid 500 MG Tablet PO (08:40)
[2021-07-16] MEDS: Insulin Lispro 100 UNIT/ML INSULN.PEN 8 UNIT SC ×3 (08:41→17:51)
[2021-07-16] MEDS: Leflunomide 10 MG TABLET PO (08:41)
[2021-07-16 08:55] VITALS: BP 165/55; PULSE 70
[2021-07-16] MEDS: amLODIPine 10 MG Tablet PO (10:14)
[2021-07-16 10:55] LABS: Bedside Glucose 303 mg/dL (70-110)
[2021-07-16] MEDS: traMADol 50 MG Tablet PO (10:59)
[2021-07-16] MEDS: Acetaminophen 500 MG Tablet 1000 MG PO ×2 (13:21→22:00)
--- NOTE | 2021-07-16 14:19 | PHA.CONS1_ITS ---
Progress Note - Pharmacy Subjective: TCU ADMISSION Objective: Allergies metronidazole [From Flagyl] Allergy (Verified 07/13/21 18:00) PT UNSURE OF REACTION oxycodone HCl [From OxyContin] Allergy (Verified 07/13/21 18:00) hallucination lidocaine Adverse Reaction (Verified 07/13/21 18:01) Nausea Current Medications Generic Name Dose Route Start Last Admin Trade Name Freq PRN Reason Stop Dose Admin Acetaminophen 1,000 mg 07/14/21 18:40 07/16/21 13:21 Acetaminophen 500 Mg Tablet PO 1,000 mg Q6H PRN PRN Administration Pain Score 1-3 Acetaminophen 1,000 mg 07/17/21 09:00 Acetaminophen 500 Mg Tablet PO 0900 [facility] Albuterol Sulfate 1 - 2 puff 07/14/21 19:25 Albuterol Sulfate 8 Gm Inhaler (60 Puffs) INHALATION Q6H PRN PRN SOB/WHEEZING Amlodipine Besylate 10 mg 07/16/21 08:15 07/16/21 10:14 Amlodipine 10 Mg Tablet PO 10 mg DAILY@0800 [facility] Administration Ascorbic Acid 500 mg 07/16/21 08:00 07/16/21 08:40 Ascorbic Acid 500 Mg Tablet PO 500 mg DAILY@0800 [facility] Administration Aspirin 81 mg 07/15/21 08:00 07/16/21 08:38 Aspirin E.C. 81 Mg Tablet PO 81 mg DAILYCM [facility] Administration Atorvastatin Calcium 20 mg 07/14/21 22:00 07/15/21 21:31 Atorvastatin Calcium 20 Mg Tablet PO 20 mg QHS JUANJOSE Administration Bisacodyl 10 mg 07/14/21 18:38 07/15/21 06:08 Bisacodyl 5 Mg Tablet PO 10 mg DAILY PRN Administration CONSTIPATION Calamine/Phenol 1 applic 07/15/21 18:00 07/16/21 05:11 Menthol/Lanolin/Calamine/Znox 113 Gm Tube TOPICAL 1 applic BID [facility] Administration Protocol Calcium/Vitamin D 1 tablet 07/15/21 08:00 07/16/21 08:40 Calcium Carb/Vitamin D 1 Tablet Tablet PO 1 tablet DAILYCM [facility] Administration Cholecalciferol 25 mcg 07/16/21 08:00 07/16/21 08:40 Cholecalciferol (Vit D3) 25 Mcg Tablet (1,000 Units) PO 25 mcg DAILY@0800 [facility] Administration Ciprofloxacin HCl 1 drp 07/15/21 18:00 07/16/21 13:22 Ciprofloxacin 0.3% 2.5ml Bottle RIGHT EYE 07/22/21 18:01 1 drp Q4 [facility] Administration Citalopram Hydrobromide 20 mg 07/16/21 08:00 07/16/21 08:39 Citalopram 20 Mg Tablet PO 20 mg DAILY@0800 [facility] Administration Clobetasol Propionate 1 applic 07/14/21 20:00 07/16/21 05:08 Clobetasol Propionate 0.05% Cream TOPICAL 1 applic BID [facility] Administration Protocol Enoxaparin Sodium 30 mg 07/15/21 06:00 07/16/21 05:06 Enoxaparin 30 Mg/0.3 Ml Syringe SC 30 mg DAILY [facility] Administration Fluticasone Propionate 2 puff 07/14/21 19:22 Fluticasone 44 Mcg Inhaler INHALATION BID PRN ALLERGIES Insulin Glargine 10 units 07/14/21 22:00 07/15/21 21:31 Insulin Glargine 100 Units/Ml Pen SC 10 u QHS JUANJOSE Administration Insulin Human Lispro 8 unit 07/15/21 08:00 07/16/21 12:04 Insulin Lispro 100 Unit/Ml Insuln.Pen SC 8 units 0800,1200,1700 [facility] Administration Isosorbide Mononitrate 15 mg 07/16/21 08:00 07/16/21 08:39 Isosorbide Mononitrate 30 Mg Tablet PO 15 mg DAILY@0800 [facility] Administration Leflunomide 10 mg 07/16/21 08:00 07/16/21 08:41 Leflunomide 10 Mg Tablet PO 10 mg DAILY@0800 [facility] Administration Losartan Potassium 50 mg 07/16/21 08:00 07/16/21 08:39 Losartan Potassium 50 Mg Tablet PO 50 mg DAILY@0800 [facility] Administration Magnesium Chloride 128 mg 07/16/21 08:00 07/16/21 08:39 Magnesium Chloride 64 Mg Delay Rel.Tablet PO 128 mg DAILY@0800 [facility] Administration Metoprolol Succinate 25 mg 07/16/21 18:00 Metoprolol(Xl)Succ 25 Mg Tablet PO BID [facility] Multivitamins 1 tablet 07/15/21 08:00 07/16/21 08:40 Multivitamins,Therapeutic Tablet PO 1 tablet DAILYCM [facility] Administration Pantoprazole Sodium 40 mg 07/16/21 08:00 07/16/21 08:38 Pantoprazole Sodium 40 Mg Tablet PO 40 mg DAILY@0800 JUANJOSE Administration Polyethylene Glycol 17 gm 07/16/21 08:00 07/16/21 08:40 Polyethylene Glycol 3350 17 Gm Packet PO 17 gm DAILY@0800 JUANJOSE Administration Senna/Docusate Sodium 1 tablet 07/14/21 20:00 07/16/21 05:06 Senna/Docusate Sodium 1 Tablet PO Not Given BID JUANJOSE Sodium Chloride 10 - 40 ml 07/14/21 16:53 07/16/21 10:15 0.9% Saline Lock 10 Ml Syringe IV 10 ml UD PRN Administration SALINE FLUSH Tramadol HCl 50 mg 07/14/21 18:38 07/16/21 10:59 Tramadol 50 Mg Tablet PO 50 mg Q6H PRN PRN Administration Pain Score 4-10 Tramadol HCl 50 mg 07/17/21 09:00 Tramadol 50 Mg Tablet PO 0900 [facility] Tuberculin PPD 0.1 ml 07/22/21 10:00 Tuberculin,Purif.Prot.Deriv. 50 Tu/Ml Vial ID 07/22/21 10:01 X1 ONE Problem List (Last Reviewed 07/14/21 @ 18:[address] Omid Arias MD) Allergic rhinitis (Acute) Vitamin D deficiency (Acute) Osteoarthritis (Acute) Depression (Acute) Gastroesophageal reflux disease (Acute) Left rotator cuff tear (Acute) Hyperlipidemia (Acute) Diabetes mellitus (Acute) Hypertension (Chronic) Coronary artery disease (Acute) Fracture of left pelvis (Acute) Fall (Acute) Syncope (Acute) Debility (Acute) Vital Signs Temp Pulse Resp BP Pulse Ox 98.8 F 70 16 165/55 H 94 07/16/21 05:30 07/16/21 08:55 07/16/21 05:30 07/16/21 08:55 07/16/21 05:30 Oxygen Delivery Method Room Air Weight: 50.5 kg Body Mass Index (BMI) 23.2 Sodium 136 mmol/L (136-145) 07/15/21 05:22 Potassium 4.0 mmol/L (3.5-5.1) 07/15/21 05:22 Chloride 102 mmol/L (98-107) 07/15/21 05:22 Carbon Dioxide 29.0 mmol/L (21.0-32.0) 07/15/21 05:22 Anion Gap 5 (5-15) 07/15/21 05:22 BUN 21 mg/dL (7-18) H 07/15/21 05:22 Creatinine 0.87 mg/dL (0.55-1.02) 07/15/21 05:22 Est GFR (MDRD) Af Amer 79 mL/min (>60) 07/15/21 05:22 Est GFR (MDRD) Non-Af 65 mL/min (>60) 07/15/21 05:22 BUN/Creatinine Ratio 24.1 RATIO (10-20) H 07/15/21 05:22 Glucose 175 mg/dL (74-106) H 07/15/21 05:22 Assessment/Plan: 1. Pain: Tylenol 1000mg PO Q6h PRN pain 1-3, Tramadol 50mg PO Q6h PRN pain 4-10. Please continue to monitor for increased/decreased pain, PRN medication usage. 2. HTN/CAD/HLD: Norvasc 10mg PO Daily, Aspirin 81mg PO Daily, Lipitor 20mg PO QHS, Imdur 15mg PO Daily, Losartan 50mg PO Daily, Toprol XL 25mg PO BID. Please continue to monitor BP, Pulse, S/S bleeding/bruising, lipid panel annually or sooner as clinically indicated. 3. Type II Diabetes: Lantus 10 unit SC QHS, Humalog 8 unit SC TIDCM. Please co ntinue to monitor BG levels, S/S hypoglycemia, A1c. 4. Rheumatoid arthritis: Leflunomide 10mg PO Daily. Please continue to monitor for disease progression, LFTs. 5. Asthma: Ventolin inhaler 1-2 puffs Q6h PRN. Please continue to monitor for PRn medication usage, HR, SOB. 6. GERD: Protonix 40mg PO Daily. Please continue to monitor for GERD exacerbations. May also encourage non-pharmacologic treatments to help minimize exacerbations as well. 7. Allergic Rhinitis: Fluticasone inhaler 2 puff BID PRN. Please continue to monitor for PRN medication usage, S/S thrush with use. Please ensure patient rinses mouth out after use to prevent thrush. 8. DVT Prophylaxis: Lovenox 30mg SC Daily. Please continue to monitor renal function (CrCl = 28mL/min), S/S bleeding/bruising, S/S clotting. 9. General Wellness: Ascorbic acid 500mg PO Daily, Os-Pramod +D 1 tab PO Daily, Vitamin D3 25mcg PO Daily, Magnesium chloride 128mg PO Daily, MVI 1 tab PO daily. Please continue to monitor appropriate labs as clinically indicated. Psychotropic Medications: 10. Depression: Citalopram 20mg PO Daily. Please see note in H/P regarding GDR recommendation. This is a Beer's criteria medication that can increase the risk of falls and fractures. Please evaluate medication as clinically appropriate. Unnecessary Medications: None Bowel Regimen: Miralax 17g PO Daily, Senna/Docusate 1 tab PO BID, Dulcolax 10mg PO Daily PRN. Please continue to monitor for increased/decreased constipation and/or diarrhea. Date of Note:: 07/16/21
--- NOTE | 2021-07-16 15:46 | CASEMGMT ---
Social Work Met with patient to complete initial assessment. Pt wishes to have Yazmin osei, be primary contact. Chart reflects and HCPOA is on file. Discussed code status and MOLST form. Pt confirms DNR-CC. MOLST communicated to , placed in chart. Explained Medicare benefit. Encouraged to contact secondary insurance. The goal is for pt to return home alone. She has support from her children. SW to continue to follow. Cari Moreau, [employer] MAT[employer] HANDLERS MARKET RESEARCH INTERVIEWER
[2021-07-16 16:20] LABS: Bedside Glucose 339 mg/dL (70-110)
[2021-07-16] MEDS: Senna/Docusate Sodium 1 Tablet PO (17:53)
[2021-07-16 17:55] VITALS: PULSE 75
[2021-07-16] MEDS: Metoprolol(XL)Succ 25 MG Tablet PO (17:55)
[2021-07-16] MEDS: Atorvastatin Calcium 20 MG Tablet PO (21:20)
[2021-07-16 21:50] LABS: Bedside Glucose 198 mg/dL (70-110)
[2021-07-17 06:09] VITALS: BP 160/65; PULSE 59
[2021-07-17] MEDS: Enoxaparin 30 MG/0.3 ML Syringe SC (06:09)
[2021-07-17] MEDS: Senna/Docusate Sodium 1 Tablet PO ×2 (06:09→17:40)
[2021-07-17] MEDS: Metoprolol(XL)Succ 25 MG Tablet PO ×2 (06:09→17:42)
[2021-07-17] MEDS: Menthol/Lanolin/Calamine/Znox 113 GM Tube 1 APPLIC TOPICAL ×2 (06:12→17:41)
[2021-07-17] MEDS: Clobetasol Propionate 0.05% Cream 1 APPLIC TOPICAL (06:12)
[2021-07-17] MEDS: Ciprofloxacin 0.3% 2.5ml Bottle 1 DRP RIGHT EYE ×5 (06:12→21:22)
[2021-07-17 07:21] LABS: Bedside Glucose 226 mg/dL (70-110)
[2021-07-17] MEDS: Cholecalciferol (VIT D3) 25 MCG TABLET (1,000 UNITS) PO (08:53)
[2021-07-17] MEDS: Isosorbide Mononitrate 30 MG Tablet 15 MG PO (08:53)
[2021-07-17] MEDS: Polyethylene Glycol 3350 17 GM PACKET PO (08:53)
[2021-07-17] MEDS: Multivitamins,Therapeutic Tablet 1 TABLET PO (08:53)
[2021-07-17] MEDS: Pantoprazole Sodium 40 MG Tablet PO (08:53)
[2021-07-17] MEDS: Losartan Potassium 50 MG Tablet PO (08:54)
[2021-07-17] MEDS: Magnesium Chloride 64 MG Delay Rel.Tablet 128 MG PO (08:54)
[2021-07-17] MEDS: Acetaminophen 500 MG Tablet 1000 MG PO ×2 (08:54→21:29)
[2021-07-17] MEDS: Calcium Carb/Vitamin D 1 TABLET Tablet PO (08:54)
[2021-07-17] MEDS: Citalopram 20 MG Tablet PO (08:54)
[2021-07-17] MEDS: Aspirin E.C. 81 MG Tablet PO (08:54)
[2021-07-17] MEDS: Leflunomide 10 MG TABLET PO (08:55)
[2021-07-17] MEDS: amLODIPine 10 MG Tablet PO (08:57)
[2021-07-17 08:58] VITALS: BP 146/56; PULSE 65
[2021-07-17] MEDS: Insulin Lispro 100 UNIT/ML INSULN.PEN 8 UNIT SC ×3 (08:59→17:40)
[2021-07-17] MEDS: Ascorbic Acid 500 MG Tablet PO (09:01)
[2021-07-17] MEDS: traMADol 50 MG Tablet PO (09:03)
[2021-07-17 10:00] VITALS: PULSE 69; RESP 18; O2SAT 97
[2021-07-17 11:46] LABS: Bedside Glucose 251 mg/dL (70-110)
[2021-07-17 14:25] VITALS: BP 105/52; PULSE 69; RESP 16; TEMP 37.3; O2SAT 96
[2021-07-17 16:06] LABS: Bedside Glucose 160 mg/dL (70-110)
[2021-07-17 17:42] VITALS: BP 144/71; PULSE 68
[2021-07-17] MEDS: 0.9% Saline Lock 10 ML Syringe IV (17:46)
[2021-07-17] MEDS: Atorvastatin Calcium 20 MG Tablet PO (21:24)
[2021-07-17 21:30] LABS: Bedside Glucose 235 mg/dL (70-110)
[2021-07-18 05:54] VITALS: BP 175/78; PULSE 66
[2021-07-18] MEDS: Metoprolol(XL)Succ 25 MG Tablet PO ×2 (05:54→16:55)
[2021-07-18] MEDS: Enoxaparin 30 MG/0.3 ML Syringe SC (05:55)
[2021-07-18] MEDS: Clobetasol Propionate 0.05% Cream 1 APPLIC TOPICAL ×2 (05:55→16:56)
[2021-07-18] MEDS: Menthol/Lanolin/Calamine/Znox 113 GM Tube 1 APPLIC TOPICAL ×2 (05:55→16:54)
[2021-07-18] MEDS: Ciprofloxacin 0.3% 2.5ml Bottle 1 DRP RIGHT EYE ×5 (05:55→21:09)
[2021-07-18] MEDS: Senna/Docusate Sodium 1 Tablet PO (05:55)
[2021-07-18 06:21] LABS: Bedside Glucose 200 mg/dL (70-110)
[2021-07-18] MEDS: Citalopram 20 MG Tablet PO (09:01)
[2021-07-18] MEDS: amLODIPine 10 MG Tablet PO (09:01)
[2021-07-18] MEDS: Pantoprazole Sodium 40 MG Tablet PO (09:01)
[2021-07-18] MEDS: Calcium Carb/Vitamin D 1 TABLET Tablet PO (09:02)
[2021-07-18] MEDS: Ascorbic Acid 500 MG Tablet PO (09:02)
[2021-07-18] MEDS: Cholecalciferol (VIT D3) 25 MCG TABLET (1,000 UNITS) PO (09:02)
[2021-07-18] MEDS: Acetaminophen 500 MG Tablet 1000 MG PO ×2 (09:02→21:10)
[2021-07-18] MEDS: Polyethylene Glycol 3350 17 GM PACKET PO (09:03)
[2021-07-18] MEDS: Multivitamins,Therapeutic Tablet 1 TABLET PO (09:03)
[2021-07-18] MEDS: Leflunomide 10 MG TABLET PO (09:03)
[2021-07-18] MEDS: Magnesium Chloride 64 MG Delay Rel.Tablet 128 MG PO (09:03)
[2021-07-18] MEDS: Isosorbide Mononitrate 30 MG Tablet 15 MG PO (09:04)
[2021-07-18] MEDS: Aspirin E.C. 81 MG Tablet PO (09:04)
[2021-07-18] MEDS: Losartan Potassium 50 MG Tablet PO (09:05)
[2021-07-18] MEDS: Insulin Lispro 100 UNIT/ML INSULN.PEN 8 UNIT SC ×3 (09:06→18:27)
[2021-07-18] MEDS: traMADol 50 MG Tablet PO ×2 (09:10→23:43)
[2021-07-18 10:56] LABS: Bedside Glucose 338 mg/dL (70-110)
[2021-07-18 14:06] VITALS: BP 99/45; PULSE 63; RESP 15; TEMP 36.1; O2SAT 93
[2021-07-18 16:31] LABS: Bedside Glucose 130 mg/dL (70-110)
[2021-07-18] MEDS: 0.9% Saline Lock 10 ML Syringe IV (16:52)
[2021-07-18 16:55] VITALS: PULSE 64
[2021-07-18 17:02] VITALS: BP 117/52; PULSE 64
[2021-07-18 21:01] LABS: Bedside Glucose 179 mg/dL (70-110)
[2021-07-18] MEDS: Atorvastatin Calcium 20 MG Tablet PO (21:09)
[2021-07-18 21:15] VITALS: PULSE 70; O2SAT 94
[2021-07-19] MEDS: Ciprofloxacin 0.3% 2.5ml Bottle 1 DRP RIGHT EYE ×6 (02:00→21:57)
[2021-07-19 06:14] VITALS: BP 145/72; PULSE 67
[2021-07-19] MEDS: Metoprolol(XL)Succ 25 MG Tablet PO (06:14)
[2021-07-19] MEDS: Clobetasol Propionate 0.05% Cream 1 APPLIC TOPICAL ×2 (06:14→17:23)
[2021-07-19] MEDS: Enoxaparin 30 MG/0.3 ML Syringe SC (06:14)
[2021-07-19] MEDS: Menthol/Lanolin/Calamine/Znox 113 GM Tube 1 APPLIC TOPICAL ×2 (06:14→17:23)
[2021-07-19 06:36] LABS: Bedside Glucose 264 mg/dL (70-110)
[2021-07-19] MEDS: Insulin Lispro 100 UNIT/ML INSULN.PEN 8 UNIT SC ×3 (07:54→17:20)
[2021-07-19] MEDS: Magnesium Chloride 64 MG Delay Rel.Tablet 128 MG PO (07:56)
[2021-07-19] MEDS: Polyethylene Glycol 3350 17 GM PACKET PO (07:57)
[2021-07-19] MEDS: Leflunomide 10 MG TABLET PO (07:57)
[2021-07-19] MEDS: Cholecalciferol (VIT D3) 25 MCG TABLET (1,000 UNITS) PO (07:57)
[2021-07-19] MEDS: Aspirin E.C. 81 MG Tablet PO (07:57)
[2021-07-19] MEDS: Ascorbic Acid 500 MG Tablet PO (07:58)
[2021-07-19] MEDS: Calcium Carb/Vitamin D 1 TABLET Tablet PO (07:58)
[2021-07-19] MEDS: Pantoprazole Sodium 40 MG Tablet PO (07:59)
[2021-07-19] MEDS: Citalopram 20 MG Tablet PO (07:59)
[2021-07-19] MEDS: Losartan Potassium 50 MG Tablet PO (08:01)
[2021-07-19] MEDS: Isosorbide Mononitrate 30 MG Tablet 15 MG PO (08:01)
[2021-07-19] MEDS: amLODIPine 10 MG Tablet PO (08:01)
[2021-07-19] MEDS: Multivitamins,Therapeutic Tablet 1 TABLET PO (08:02)
[2021-07-19] MEDS: traMADol 50 MG Tablet PO (09:47)
[2021-07-19 10:51] LABS: Bedside Glucose 248 mg/dL (70-110)
[2021-07-19 13:39] VITALS: BP 105/49; PULSE 68; RESP 16; TEMP 36.7; O2SAT 98
[2021-07-19 16:36] LABS: Bedside Glucose 208 mg/dL (70-110)
[2021-07-19] MEDS: 0.9% Saline Lock 10 ML Syringe IV (17:19)
[2021-07-19 18:41] VITALS: BP 114/51; PULSE 64
[2021-07-19 21:31] LABS: Bedside Glucose 170 mg/dL (70-110)
[2021-07-19] MEDS: Atorvastatin Calcium 20 MG Tablet PO (21:56)
[2021-07-19] MEDS: MELATONIN 10 MG TABLET PO (21:56)
[2021-07-20] MEDS: Ciprofloxacin 0.3% 2.5ml Bottle 1 DRP RIGHT EYE ×6 (01:56→22:48)
[2021-07-20] MEDS: Enoxaparin 30 MG/0.3 ML Syringe SC (04:56)
[2021-07-20] MEDS: Senna/Docusate Sodium 1 Tablet PO (04:56)
[2021-07-20 04:57] VITALS: BP 146/65; PULSE 77
[2021-07-20] MEDS: Metoprolol(XL)Succ 25 MG Tablet PO ×2 (04:57→17:18)
[2021-07-20] MEDS: Clobetasol Propionate 0.05% Cream 1 APPLIC TOPICAL ×2 (05:01→17:18)
[2021-07-20] MEDS: Menthol/Lanolin/Calamine/Znox 113 GM Tube 1 APPLIC TOPICAL ×2 (05:02→17:19)
[2021-07-20 06:21] LABS: Bedside Glucose 199 mg/dL (70-110)
[2021-07-20] MEDS: Losartan Potassium 50 MG Tablet PO (07:58)
[2021-07-20] MEDS: Isosorbide Mononitrate 30 MG Tablet 15 MG PO (07:58)
[2021-07-20] MEDS: Aspirin E.C. 81 MG Tablet PO (07:58)
[2021-07-20] MEDS: Insulin Lispro 100 UNIT/ML INSULN.PEN 8 UNIT SC ×3 (07:58→17:17)
[2021-07-20] MEDS: Citalopram 20 MG Tablet PO (07:58)
[2021-07-20] MEDS: Polyethylene Glycol 3350 17 GM PACKET PO (07:59)
[2021-07-20] MEDS: Multivitamins,Therapeutic Tablet 1 TABLET PO (07:59)
[2021-07-20] MEDS: amLODIPine 10 MG Tablet PO (07:59)
[2021-07-20] MEDS: Leflunomide 10 MG TABLET PO (07:59)
[2021-07-20] MEDS: Magnesium Chloride 64 MG Delay Rel.Tablet 128 MG PO (07:59)
[2021-07-20] MEDS: Pantoprazole Sodium 40 MG Tablet PO (08:00)
[2021-07-20] MEDS: Cholecalciferol (VIT D3) 25 MCG TABLET (1,000 UNITS) PO (08:00)
[2021-07-20] MEDS: Calcium Carb/Vitamin D 1 TABLET Tablet PO (08:00)
[2021-07-20] MEDS: Ascorbic Acid 500 MG Tablet PO (08:00)
[2021-07-20] MEDS: Acetaminophen 500 MG Tablet 1000 MG PO ×2 (08:00→22:50)
[2021-07-20] MEDS: traMADol 50 MG Tablet PO (08:03)
[2021-07-20 10:45] LABS: Bedside Glucose 360 mg/dL (70-110)
[2021-07-20 14:40] VITALS: BP 135/58; PULSE 61; RESP 18; TEMP 36.2; O2SAT 95
--- NOTE | 2021-07-20 14:51 | NURSING ---
Patient's daughter updated regarding patient's appt with Dr. Saenz on 07/26/21 at 1:30pm by GUEST EXPERIENCE SPECIALIST. Patient to be transported by w/c. Daughter was asked by GUEST EXPERIENCE SPECIALIST if she would be able to attend appt. Daughter to attend appt.
--- NOTE | 2021-07-20 14:55 | PCA ---
Leigh has an appointment on Wednesday 07/26 @ 1:30p.m. with Dr. Saenz. Therapy said she will be fine going by w/c transport. I called & spoke with Leigh's daughter. She will meet her mother @ the appointment.
[2021-07-20 16:46] LABS: Bedside Glucose 442 mg/dL (70-110)
[2021-07-20 17:18] VITALS: BP 135/58; PULSE 61
[2021-07-20] MEDS: Insulin Lispro 100 UNIT/ML INSULN.PEN 10 UNIT SC (18:28)
[2021-07-20] MEDS: 0.9% Saline Lock 10 ML Syringe IV (19:01)
[2021-07-20 22:36] LABS: Bedside Glucose 288 mg/dL (70-110)
[2021-07-20] MEDS: Atorvastatin Calcium 20 MG Tablet PO (22:49)
[2021-07-20] MEDS: MELATONIN 10 MG TABLET PO (22:50)
[2021-07-21] MEDS: Clobetasol Propionate 0.05% Cream 1 APPLIC TOPICAL ×2 (05:40→17:39)
[2021-07-21] MEDS: Enoxaparin 30 MG/0.3 ML Syringe SC (05:40)
[2021-07-21 05:41] VITALS: BP 136/59; PULSE 57
[2021-07-21] MEDS: Ciprofloxacin 0.3% 2.5ml Bottle 1 DRP RIGHT EYE ×4 (05:41→20:26)
[2021-07-21] MEDS: Metoprolol(XL)Succ 25 MG Tablet PO ×2 (05:41→17:40)
[2021-07-21] MEDS: Menthol/Lanolin/Calamine/Znox 113 GM Tube 1 APPLIC TOPICAL ×2 (05:42→17:40)
[2021-07-21 06:31] LABS: Bedside Glucose 210 mg/dL (70-110)
[2021-07-21] MEDS: Aspirin E.C. 81 MG Tablet PO (08:36)
[2021-07-21] MEDS: Acetaminophen 500 MG Tablet 1000 MG PO ×2 (08:36→20:19)
[2021-07-21] MEDS: Cholecalciferol (VIT D3) 25 MCG TABLET (1,000 UNITS) PO (08:36)
[2021-07-21] MEDS: Calcium Carb/Vitamin D 1 TABLET Tablet PO (08:36)
[2021-07-21] MEDS: Ascorbic Acid 500 MG Tablet PO (08:36)
[2021-07-21] MEDS: Pantoprazole Sodium 40 MG Tablet PO (08:36)
[2021-07-21] MEDS: Isosorbide Mononitrate 30 MG Tablet 15 MG PO (08:36)
[2021-07-21] MEDS: Polyethylene Glycol 3350 17 GM PACKET PO (08:36)
[2021-07-21] MEDS: Leflunomide 10 MG TABLET PO (08:36)
[2021-07-21] MEDS: Losartan Potassium 50 MG Tablet PO (08:36)
[2021-07-21] MEDS: Magnesium Chloride 64 MG Delay Rel.Tablet 128 MG PO (08:37)
[2021-07-21] MEDS: amLODIPine 10 MG Tablet PO (08:37)
[2021-07-21] MEDS: Multivitamins,Therapeutic Tablet 1 TABLET PO (08:37)
[2021-07-21] MEDS: Citalopram 20 MG Tablet PO (08:37)
[2021-07-21] MEDS: Insulin Lispro 100 UNIT/ML INSULN.PEN 10 UNIT SC ×3 (08:47→17:39)
[2021-07-21] MEDS: traMADol 50 MG Tablet PO (10:27)
[2021-07-21 11:20] LABS: Bedside Glucose 275 mg/dL (74-106)
[2021-07-21 14:15] VITALS: BP 92/48; PULSE 61; RESP 16; TEMP 36.4; O2SAT 94
[2021-07-21 16:01] LABS: Bedside Glucose 136 mg/dL (74-106)
--- NOTE | 2021-07-21 16:42 | CASEMGMT ---
Social Work IDT met with patient and granddaughter via conference call for care plan meeting. Discussed patient's progress in PT/OT and nursing. ST to eval. Explained Medicare benefit. Encouraged to contact secondary insurance to ensure copay coverage. Discussed DC plans. Expressed concern with pt returning home alone. Pt and gddtr share concern and are realistic that pt will need more scheduled assistance at DC. Discussed AL or respite AL, SNF or respite SNF, and hiring private duty HHC. Explained all options would be private pay. Pt stated she has long-term care insurance. Explained LTC insurance is reimbursement and may not cover 100%. Advised gddtr to contact company to get detailed policy information and if needs to provide supporting documentation. Pt open to options. Gddtr to discuss and bring information to family to make decision. Email gddtr all resource lists and recap of information. Pt and gddtr very appreciative of assistance. SW to continue to follow. Cari Moreau ,NUCLEAR ENGINEERING TECHNICIAN EXPLOSIVES OPERATOR
[2021-07-21 17:40] VITALS: BP 145/66; PULSE 64
[2021-07-21] MEDS: Senna/Docusate Sodium 1 Tablet PO (17:40)
[2021-07-21] MEDS: 0.9% Saline Lock 10 ML Syringe IV (17:46)
[2021-07-21] MEDS: Atorvastatin Calcium 20 MG Tablet PO (20:28)
[2021-07-21] MEDS: MELATONIN 10 MG TABLET PO (20:29)
[2021-07-21 20:49] LABS: Bacteria 0 SEEN /hpf (None Seen); Mucous, Urine 0 SEEN /hpf (<or=2+); Red Blood Cells-Urine 0 SEEN /hpf (0-5); Squamous Epithelial Cells - UA 0 SEEN /hpf (5-10)
[2021-07-21 20:56] LABS: Color, Urine Yellow (Yellow); Glucose, Dipstick Normal (Normal); Ketone-Dipstick Negative (Negative); Leukocyte Esterase-Dipstick 500 /ul (Negative); Nitrite-Dipstick Negative (Negative); Occult Blood-Urine 250 /ul (Negative); Protein-Dipstick 100 mg/dl (Negative); Urine Bilirubin Dipstick Negative (Negative); Urine Clarity Cloudy (Clear); Urine Urobilinogen Normal (Normal)
[2021-07-21 21:03] LABS: White Blood Cells >100 SEEN /hpf (0-5)
[2021-07-21 21:16] LABS: Bedside Glucose 140 mg/dL (74-106)
[2021-07-22] MEDS: Ciprofloxacin 0.3% 2.5ml Bottle 1 DRP RIGHT EYE ×4 (05:12→17:36)
[2021-07-22] MEDS: Menthol/Lanolin/Calamine/Znox 113 GM Tube 1 APPLIC TOPICAL ×2 (05:13→13:20)
[2021-07-22] MEDS: Clobetasol Propionate 0.05% Cream 1 APPLIC TOPICAL ×2 (05:13→17:37)
[2021-07-22] MEDS: Enoxaparin 30 MG/0.3 ML Syringe SC (05:13)
[2021-07-22 05:14] VITALS: BP 156/55; PULSE 55
[2021-07-22] MEDS: Metoprolol(XL)Succ 25 MG Tablet PO ×2 (05:14→18:31)
[2021-07-22] MEDS: Senna/Docusate Sodium 1 Tablet PO (05:14)
[2021-07-22 05:22] LABS: Absolute Lymphocyte Count 2.15 X10^3/uL (0.83-4.51); Absolute Neutrophil Count 7.3 X10^3/uL (2.0-7.7); Basophil# 0.11 X10^3/uL; Eosinophil# 0.58 X10^3/uL; Eosinophils% 5.1 % (0-5); Hemoglobin 12.4 g/dL (12.0-15.0); Lymphocyte # 2.15 X10^3/ul (0.83-4.51); Lymphocyte % 18.9 % (19-41); Mean Corp Hgb Conc 33.5 g/dL (32-36); Mean Corpuscular Volume 89.4 fL (81-99); Mean Platelet Vol. 10.5 fl (6.2-12.0); Monocyte% 9.7 % (0-10); NRBC Flagged by Analyzer 0 % (0-5); Neutrophil # 7.32 X10^3/uL (2.7-7.7); Neutrophil % 64.2 % (47-70); Platelet Count 302 K/mm3 (150-450); RBC Distribution Width CV 13.5 % (11.6-14.6); RBC Distribution Width SD 44.6 fl (35.1-43.9); Red Blood Count 4.14 M/mm3 (4.2-5.4); White Blood Count 11.4 K/mm3 (4.4-11.0)
[2021-07-22 05:44] LABS: Anion Gap 4 (5-15); BUN 38 mg/dL (7-18); BUN/Creat Ratio 33.6 RATIO (10-20); Calcium,Total 9.4 mg/dL (8.5-10.1); Chloride 101 mmol/L (98-107); Creatinine, Serum 1.13 mg/dL (0.55-1.02); EST Glomerular Filtration Rate 48 mL/min (>60); Est Glom Filt Rate - Afr Amer 59 mL/min (>60); Estimated Creatinine Clearance 27.13 ml/min; Glucose 221 mg/dL (74-106); Potassium 5.3 mmol/L (3.5-5.1); Sodium Level 133 mmol/L (136-145)
[2021-07-22 06:21] LABS: Bedside Glucose 245 mg/dL (74-106)
[2021-07-22] MEDS: Insulin Lispro 100 UNIT/ML INSULN.PEN 10 UNIT SC ×3 (08:29→17:36)
[2021-07-22 08:33] VITALS: BP 124/64; PULSE 67
--- NOTE | 2021-07-22 08:33 | NURSING ---
walked into pt room and found pt crying. asked pt what was wrong,pt stated adina just depressed and i normally dont cry. pt stated its because of being here and my health getting worse with the pain. did some 1 on with pt. will get pt prn pain med. rn aware
[2021-07-22] MEDS: Citalopram 20 MG Tablet PO (08:54)
[2021-07-22] MEDS: Ascorbic Acid 500 MG Tablet PO (08:55)
[2021-07-22] MEDS: Aspirin E.C. 81 MG Tablet PO (08:55)
[2021-07-22] MEDS: Multivitamins,Therapeutic Tablet 1 TABLET PO (08:55)
[2021-07-22] MEDS: Losartan Potassium 50 MG Tablet PO (08:56)
[2021-07-22] MEDS: Magnesium Chloride 64 MG Delay Rel.Tablet 128 MG PO (08:56)
[2021-07-22] MEDS: Leflunomide 10 MG TABLET PO (08:56)
[2021-07-22] MEDS: Isosorbide Mononitrate 30 MG Tablet 15 MG PO (08:56)
[2021-07-22] MEDS: Calcium Carb/Vitamin D 1 TABLET Tablet PO (08:57)
[2021-07-22] MEDS: Pantoprazole Sodium 40 MG Tablet PO (08:57)
[2021-07-22] MEDS: Cholecalciferol (VIT D3) 25 MCG TABLET (1,000 UNITS) PO (08:57)
[2021-07-22] MEDS: Acetaminophen 500 MG Tablet 1000 MG PO ×2 (08:58→21:07)
[2021-07-22] MEDS: amLODIPine 10 MG Tablet PO (08:59)
[2021-07-22] MEDS: traMADol 50 MG Tablet PO ×2 (09:04→21:08)
[2021-07-22 11:16] LABS: Bedside Glucose 286 mg/dL (74-106)
[2021-07-22] MEDS: Tuberculin,Purif.prot.deriv. 50 TU/ML Vial 0.1 ML ID (11:36)
[2021-07-22 13:32] VITALS: BP 110/51; PULSE 69; RESP 16; TEMP 36.4; O2SAT 98
[2021-07-22] MEDS: Sodium Polystyrene Sulfonate 15 GM/60 ML UDC 30 GM PO (15:41)
[2021-07-22 16:26] LABS: Bedside Glucose 342 mg/dL (74-106)
--- NOTE | 2021-07-22 16:32 | NURSING ---
Resident and daughter, Yazmin, notified of a resident on the unit testing positive for COVID.
--- NOTE | 2021-07-22 17:34 | NURSING ---
NOTIFIED DR DAHL OF PRELIM URINE CULTURE. R' C/O BURNING/URGENCY/FREQUENCY. STARTED ON ANTIBIOTIC.
[2021-07-22 18:31] VITALS: PULSE 69
[2021-07-22] MEDS: Ciprofloxacin 250 MG Tablet PO (18:36)
[2021-07-22] MEDS: MELATONIN 10 MG TABLET PO (21:07)
[2021-07-22] MEDS: Atorvastatin Calcium 20 MG Tablet PO (21:07)
[2021-07-22 21:21] LABS: Bedside Glucose 350 mg/dL (74-106)
[2021-07-23 05:14] VITALS: BP 138/70; PULSE 60
[2021-07-23] MEDS: Metoprolol(XL)Succ 25 MG Tablet PO ×2 (05:14→18:02)
[2021-07-23] MEDS: Senna/Docusate Sodium 1 Tablet PO (05:14)
[2021-07-23] MEDS: Enoxaparin 30 MG/0.3 ML Syringe SC (05:14)
[2021-07-23] MEDS: Ciprofloxacin 250 MG Tablet PO ×2 (05:16→18:03)
[2021-07-23] MEDS: Menthol/Lanolin/Calamine/Znox 113 GM Tube 1 APPLIC TOPICAL ×2 (05:20→18:33)
[2021-07-23 06:03] LABS: Anion Gap 4 (5-15); BUN 36 mg/dL (7-18); BUN/Creat Ratio 38.7 RATIO (10-20); Chloride 103 mmol/L (98-107); Creatinine, Serum 0.93 mg/dL (0.55-1.02); EST Glomerular Filtration Rate 61 mL/min (>60); Est Glom Filt Rate - Afr Amer 73 mL/min (>60); Estimated Creatinine Clearance 32.96 ml/min; Glucose 145 mg/dL (74-106); Potassium 4.1 mmol/L (3.5-5.1); Sodium Level 134 mmol/L (136-145)
[2021-07-23] MEDS: traMADol 50 MG Tablet PO ×2 (06:30→20:06)
[2021-07-23 06:31] LABS: Bedside Glucose 144 mg/dL (74-106)
[2021-07-23] MEDS: Acetaminophen 500 MG Tablet 1000 MG PO ×2 (06:32→20:07)
[2021-07-23] MEDS: Citalopram 20 MG Tablet PO (09:34)
[2021-07-23] MEDS: Aspirin E.C. 81 MG Tablet PO (09:35)
[2021-07-23] MEDS: Insulin Lispro 100 UNIT/ML INSULN.PEN 10 UNIT SC ×3 (09:36→18:12)
[2021-07-23] MEDS: Isosorbide Mononitrate 30 MG Tablet 15 MG PO (09:38)
[2021-07-23] MEDS: Pantoprazole Sodium 40 MG Tablet PO (09:39)
[2021-07-23] MEDS: Magnesium Chloride 64 MG Delay Rel.Tablet 128 MG PO (09:39)
[2021-07-23] MEDS: Multivitamins,Therapeutic Tablet 1 TABLET PO (09:40)
[2021-07-23] MEDS: Calcium Carb/Vitamin D 1 TABLET Tablet PO (09:40)
[2021-07-23] MEDS: Ascorbic Acid 500 MG Tablet PO (09:40)
[2021-07-23] MEDS: amLODIPine 10 MG Tablet PO (09:41)
[2021-07-23] MEDS: Leflunomide 10 MG TABLET PO (09:41)
[2021-07-23] MEDS: Losartan Potassium 50 MG Tablet PO (09:41)
[2021-07-23] MEDS: Cholecalciferol (VIT D3) 25 MCG TABLET (1,000 UNITS) PO (09:42)
[2021-07-23] MEDS: Clobetasol Propionate 0.05% Cream 1 APPLIC TOPICAL ×2 (09:42→20:16)
[2021-07-23 09:58] VITALS: BP 137/63; PULSE 56
[2021-07-23 10:45] LABS: Bedside Glucose 339 mg/dL (74-106)
[2021-07-23 13:45] VITALS: BP 109/52; PULSE 66; RESP 16; TEMP 36.6; O2SAT 96
[2021-07-23 15:41] LABS: Bedside Glucose 96 mg/dL (74-106)
[2021-07-23 18:02] VITALS: BP 130/61; PULSE 64
[2021-07-23 18:11] VITALS: BP 130/61; PULSE 64
[2021-07-23 18:11] LABS: Bedside Glucose 126 mg/dL (74-106)
[2021-07-23] MEDS: Atorvastatin Calcium 20 MG Tablet PO (20:06)
[2021-07-23] MEDS: MELATONIN 10 MG TABLET PO (20:06)
[2021-07-23 21:36] LABS: Bedside Glucose 110 mg/dL (74-106)
[2021-07-23 21:55] VITALS: PULSE 68; O2SAT 92
[2021-07-24] MEDS: Menthol/Lanolin/Calamine/Znox 113 GM Tube 1 APPLIC TOPICAL ×2 (04:32→18:03)
[2021-07-24] MEDS: Ciprofloxacin 250 MG Tablet PO ×2 (04:32→18:02)
[2021-07-24] MEDS: Enoxaparin 30 MG/0.3 ML Syringe SC (04:32)
[2021-07-24 04:34] VITALS: BP 124/52; PULSE 49
[2021-07-24] MEDS: Clobetasol Propionate 0.05% Cream 1 APPLIC TOPICAL ×2 (04:37→18:03)
[2021-07-24 06:25] LABS: Bedside Glucose 81 mg/dL (74-106)
[2021-07-24] MEDS: Aspirin E.C. 81 MG Tablet PO (08:43)
[2021-07-24] MEDS: Citalopram 20 MG Tablet PO (08:44)
[2021-07-24] MEDS: Losartan Potassium 50 MG Tablet PO (08:44)
[2021-07-24] MEDS: Acetaminophen 500 MG Tablet 1000 MG PO ×2 (08:45→22:24)
[2021-07-24] MEDS: Ascorbic Acid 500 MG Tablet PO (08:45)
[2021-07-24] MEDS: Leflunomide 10 MG TABLET PO (08:45)
[2021-07-24] MEDS: Multivitamins,Therapeutic Tablet 1 TABLET PO (08:46)
[2021-07-24] MEDS: Magnesium Chloride 64 MG Delay Rel.Tablet 128 MG PO (08:46)
[2021-07-24] MEDS: Pantoprazole Sodium 40 MG Tablet PO (08:47)
[2021-07-24] MEDS: Calcium Carb/Vitamin D 1 TABLET Tablet PO (08:47)
[2021-07-24] MEDS: Cholecalciferol (VIT D3) 25 MCG TABLET (1,000 UNITS) PO (08:47)
[2021-07-24] MEDS: Isosorbide Mononitrate 30 MG Tablet 15 MG PO (08:47)
[2021-07-24] MEDS: amLODIPine 10 MG Tablet PO (08:48)
[2021-07-24] MEDS: Insulin Lispro 100 UNIT/ML INSULN.PEN 10 UNIT SC ×3 (08:53→18:01)
[2021-07-24] MEDS: traMADol 50 MG Tablet PO ×2 (08:57→22:24)
[2021-07-24 09:02] VITALS: BP 135/69; PULSE 60
[2021-07-24 11:11] LABS: Bedside Glucose 145 mg/dL (74-106)
[2021-07-24 14:26] VITALS: BP 116/49; PULSE 58; RESP 16; TEMP 36.4; O2SAT 96
[2021-07-24 16:11] LABS: Bedside Glucose 149 mg/dL (74-106)
[2021-07-24 18:01] VITALS: BP 129/92; PULSE 73
[2021-07-24] MEDS: Senna/Docusate Sodium 1 Tablet PO (18:01)
[2021-07-24] MEDS: Metoprolol(XL)Succ 25 MG Tablet PO (18:01)
[2021-07-24 21:21] LABS: Bedside Glucose 80 mg/dL (74-106)
[2021-07-24] MEDS: MELATONIN 10 MG TABLET PO (22:25)
[2021-07-24] MEDS: Atorvastatin Calcium 20 MG Tablet PO (22:25)
[2021-07-25] MEDS: Ciprofloxacin 250 MG Tablet PO ×2 (05:37→17:34)
[2021-07-25] MEDS: Senna/Docusate Sodium 1 Tablet PO (05:37)
[2021-07-25] MEDS: Menthol/Lanolin/Calamine/Znox 113 GM Tube 1 APPLIC TOPICAL ×2 (05:38→17:41)
[2021-07-25] MEDS: Clobetasol Propionate 0.05% Cream 1 APPLIC TOPICAL ×2 (05:39→17:35)
[2021-07-25] MEDS: Enoxaparin 30 MG/0.3 ML Syringe SC (05:42)
[2021-07-25 06:47] VITALS: BP 168/70; PULSE 57
[2021-07-25] MEDS: Metoprolol(XL)Succ 25 MG Tablet PO ×2 (06:47→17:35)
[2021-07-25 07:01] LABS: Bedside Glucose 170 mg/dL (74-106)
[2021-07-25] MEDS: Pantoprazole Sodium 40 MG Tablet PO (08:02)
[2021-07-25] MEDS: Magnesium Chloride 64 MG Delay Rel.Tablet 128 MG PO (08:02)
[2021-07-25] MEDS: Multivitamins,Therapeutic Tablet 1 TABLET PO (08:03)
[2021-07-25] MEDS: Leflunomide 10 MG TABLET PO (08:03)
[2021-07-25] MEDS: Cholecalciferol (VIT D3) 25 MCG TABLET (1,000 UNITS) PO (08:03)
[2021-07-25] MEDS: Calcium Carb/Vitamin D 1 TABLET Tablet PO (08:03)
[2021-07-25] MEDS: Aspirin E.C. 81 MG Tablet PO (08:04)
[2021-07-25] MEDS: Isosorbide Mononitrate 30 MG Tablet 15 MG PO (08:04)
[2021-07-25] MEDS: Citalopram 20 MG Tablet PO (08:04)
[2021-07-25] MEDS: Ascorbic Acid 500 MG Tablet PO (08:04)
[2021-07-25] MEDS: amLODIPine 10 MG Tablet PO (08:05)
[2021-07-25] MEDS: Losartan Potassium 50 MG Tablet PO (08:08)
[2021-07-25] MEDS: traMADol 50 MG Tablet PO ×2 (08:11→22:20)
[2021-07-25] MEDS: Acetaminophen 500 MG Tablet 1000 MG PO ×2 (08:11→22:13)
[2021-07-25] MEDS: Insulin Lispro 100 UNIT/ML INSULN.PEN 10 UNIT SC ×2 (08:12→11:48)
[2021-07-25 11:16] LABS: Bedside Glucose 166 mg/dL (74-106)
[2021-07-25 14:49] VITALS: BP 119/47; PULSE 65; RESP 10; TEMP 36.3; O2SAT 95
[2021-07-25 15:56] LABS: Bedside Glucose 113 mg/dL (74-106)
[2021-07-25 17:35] VITALS: BP 152/70; PULSE 63
[2021-07-25 21:25] LABS: Bedside Glucose 277 mg/dL (74-106)
[2021-07-25] MEDS: Atorvastatin Calcium 20 MG Tablet PO (22:13)
[2021-07-25] MEDS: MELATONIN 10 MG TABLET PO (22:13)
--- NOTE | 2021-07-26 01:08 | NURSING ---
Pt used bedpan to void. Requests blood sugar be checked stating, Something doesn't feel right. Result 245. HS blood sugar was 277 before Lantus was administered. Will continue to monitor.
[2021-07-26 01:11] LABS: Bedside Glucose 245 mg/dL (74-106)
[2021-07-26 06:06] LABS: Bedside Glucose 161 mg/dL (74-106)
[2021-07-26] MEDS: Menthol/Lanolin/Calamine/Znox 113 GM Tube 1 APPLIC TOPICAL ×2 (06:21→19:53)
[2021-07-26] MEDS: Enoxaparin 30 MG/0.3 ML Syringe SC (06:22)
[2021-07-26] MEDS: Pantoprazole Sodium 40 MG Tablet PO (06:23)
[2021-07-26] MEDS: Ciprofloxacin 250 MG Tablet PO ×2 (06:24→17:13)
--- NOTE | 2021-07-26 06:32 | NURSING ---
Metoprolol Tartrate held for HR of 54. Clobetasol cream not applied at this time as pt has not been bathed. Will report to onciming nurse.
[2021-07-26 06:33] VITALS: BP 152/68; PULSE 54
[2021-07-26] MEDS: Citalopram 20 MG Tablet PO (08:16)
[2021-07-26] MEDS: Aspirin E.C. 81 MG Tablet PO (08:17)
[2021-07-26] MEDS: Losartan Potassium 50 MG Tablet PO (08:17)
[2021-07-26] MEDS: Isosorbide Mononitrate 30 MG Tablet 15 MG PO (08:18)
[2021-07-26] MEDS: Magnesium Chloride 64 MG Delay Rel.Tablet 128 MG PO (08:19)
[2021-07-26] MEDS: Multivitamins,Therapeutic Tablet 1 TABLET PO (08:19)
[2021-07-26] MEDS: amLODIPine 10 MG Tablet PO (08:19)
[2021-07-26] MEDS: Cholecalciferol (VIT D3) 25 MCG TABLET (1,000 UNITS) PO (08:20)
[2021-07-26] MEDS: Calcium Carb/Vitamin D 1 TABLET Tablet PO (08:20)
[2021-07-26] MEDS: Ascorbic Acid 500 MG Tablet PO (08:20)
[2021-07-26] MEDS: Leflunomide 10 MG TABLET PO (08:20)
[2021-07-26] MEDS: Insulin Lispro 100 UNIT/ML INSULN.PEN 10 UNIT SC ×3 (08:21→17:15)
[2021-07-26 08:31] VITALS: BP 162/63; PULSE 62
[2021-07-26] MEDS: Clobetasol Propionate 0.05% Cream 1 APPLIC TOPICAL ×2 (09:17→19:53)
[2021-07-26] MEDS: Acetaminophen 500 MG Tablet 1000 MG PO ×2 (09:18→15:45)
[2021-07-26] MEDS: traMADol 50 MG Tablet PO ×2 (09:21→15:44)
--- NOTE | 2021-07-26 10:23 | CASEMGMT ---
Addendum entered by Cari Moreau 07/26/21 11:29: Dtr requested referrals to [facility] and [facility]. [facility] referral[facility]. Updated dtr. Original Note: Social Work Received call from pt's daughter with several questions on DC plans. Offered to forward email sent to Angely - she agreed. Reexplained and answered many questions on DC disposition - home vs AL and the financial liability. Explained home resources such as MOW, medication dispenser, nonskilled HHC. Provided AL pricing and facility list. Explained Medicare.gov for quality data on facilities. Explained currently pt will need 24/7 care and currently is x2 assist. Unsure how much pt will improve but IDT states pt will not return to [facility]. Plus pt was not [facility] prior to admission. Dtr agrees pt cannot return home alone and she cannot continue to stay with her outside of her work hours. Explained pt was agreeable at care plan meeting. SW to continue to assist with DC planning. Dtr appreciative. Cari Moreau, STEPHANIE LARIOSW
[2021-07-26 10:25] VITALS: PULSE 66; RESP 18; O2SAT 95
[2021-07-26 10:45] LABS: Bedside Glucose 266 mg/dL (74-106)
[2021-07-26 14:22] VITALS: BP 110/50; PULSE 70; RESP 16; TEMP 36.6; O2SAT 94
[2021-07-26 15:46] LABS: Bedside Glucose 247 mg/dL (74-106)
[2021-07-26 17:15] VITALS: BP 110/50; PULSE 70
[2021-07-26] MEDS: Metoprolol(XL)Succ 25 MG Tablet PO (17:15)
[2021-07-26 21:21] LABS: Bedside Glucose 134 mg/dL (74-106)
[2021-07-26] MEDS: MELATONIN 10 MG TABLET PO (21:21)
[2021-07-26] MEDS: Atorvastatin Calcium 20 MG Tablet PO (21:21)
[2021-07-27 04:36] LABS: Bedside Glucose 80 mg/dL (74-106)
[2021-07-27 04:38] VITALS: BP 142/59; PULSE 64
[2021-07-27 04:42] VITALS: PULSE 64
[2021-07-27] MEDS: Metoprolol(XL)Succ 25 MG Tablet PO ×2 (04:42→16:24)
[2021-07-27] MEDS: Senna/Docusate Sodium 1 Tablet PO (04:42)
[2021-07-27] MEDS: Ciprofloxacin 250 MG Tablet PO ×2 (04:42→16:23)
[2021-07-27] MEDS: Menthol/Lanolin/Calamine/Znox 113 GM Tube 1 APPLIC TOPICAL ×2 (04:43→16:22)
[2021-07-27] MEDS: Enoxaparin 30 MG/0.3 ML Syringe SC (04:43)
[2021-07-27] MEDS: Clobetasol Propionate 0.05% Cream 1 APPLIC TOPICAL ×2 (04:44→16:23)
[2021-07-27 06:31] LABS: Bedside Glucose 167 mg/dL (74-106)
[2021-07-27] MEDS: Citalopram 20 MG Tablet PO (08:03)
[2021-07-27] MEDS: traMADol 50 MG Tablet PO ×2 (08:03→22:51)
[2021-07-27] MEDS: Pantoprazole Sodium 40 MG Tablet PO (08:03)
[2021-07-27] MEDS: amLODIPine 10 MG Tablet PO (08:03)
[2021-07-27] MEDS: Calcium Carb/Vitamin D 1 TABLET Tablet PO (08:03)
[2021-07-27] MEDS: Cholecalciferol (VIT D3) 25 MCG TABLET (1,000 UNITS) PO (08:04)
[2021-07-27] MEDS: Aspirin E.C. 81 MG Tablet PO (08:04)
[2021-07-27] MEDS: Magnesium Chloride 64 MG Delay Rel.Tablet 128 MG PO (08:04)
[2021-07-27] MEDS: Losartan Potassium 50 MG Tablet PO (08:04)
[2021-07-27] MEDS: Ascorbic Acid 500 MG Tablet PO (08:04)
[2021-07-27] MEDS: Isosorbide Mononitrate 30 MG Tablet 15 MG PO (08:05)
[2021-07-27] MEDS: Multivitamins,Therapeutic Tablet 1 TABLET PO (08:05)
[2021-07-27] MEDS: Acetaminophen 500 MG Tablet 1000 MG PO ×2 (08:05→14:09)
[2021-07-27] MEDS: Leflunomide 10 MG TABLET PO (08:06)
[2021-07-27] MEDS: Insulin Lispro 100 UNIT/ML INSULN.PEN 10 UNIT SC ×3 (08:06→18:01)
--- NOTE | 2021-07-27 10:15 | MDS.RN ---
Information for the mds was obtained from review of the clinical record, interview of resident, staff, and direct observation of resident's care.
[2021-07-27 10:56] LABS: Bedside Glucose 116 mg/dL (74-106)
[2021-07-27 14:34] VITALS: BP 117/57; PULSE 63; RESP 16; TEMP 36.2; O2SAT 97
[2021-07-27 15:06] LABS: Bedside Glucose 75 mg/dL (74-106)
[2021-07-27 16:11] LABS: Bedside Glucose 127 mg/dL (74-106)
[2021-07-27 16:24] VITALS: PULSE 63
--- NOTE | 2021-07-27 16:35 | NURSING ---
Around 1500, resident reports feeling fuzzy and wants her blood sugar taken. Blood sugar [address] Arias updated that resident feels her Lantus dose of 30 units is too high. Also complains of loose stool today, stool softeners held at this time.
[2021-07-27 20:00] VITALS: BP 132/57; PULSE 63; RESP 17; TEMP 36.2; O2SAT 95
[2021-07-27] MEDS: Atorvastatin Calcium 20 MG Tablet PO (20:22)
[2021-07-27 21:46] LABS: Bedside Glucose 171 mg/dL (74-106)
[2021-07-27] MEDS: MELATONIN 10 MG TABLET PO (22:51)
[2021-07-28 04:59] VITALS: BP 118/55; PULSE 57
[2021-07-28] MEDS: Ciprofloxacin 250 MG Tablet PO ×2 (04:59→17:53)
[2021-07-28] MEDS: Metoprolol(XL)Succ 25 MG Tablet PO ×2 (04:59→17:52)
[2021-07-28] MEDS: Menthol/Lanolin/Calamine/Znox 113 GM Tube 1 APPLIC TOPICAL ×2 (05:00→17:53)
[2021-07-28] MEDS: Enoxaparin 30 MG/0.3 ML Syringe SC (05:00)
[2021-07-28] MEDS: Clobetasol Propionate 0.05% Cream 1 APPLIC TOPICAL ×2 (05:01→17:55)
[2021-07-28 05:14] VITALS: BP 118/55; PULSE 55; RESP 16; TEMP 36.1; O2SAT 92
[2021-07-28 06:26] LABS: Bedside Glucose 106 mg/dL (74-106)
[2021-07-28] MEDS: Insulin Lispro 100 UNIT/ML INSULN.PEN 7 UNIT SC ×3 (08:44→17:53)
[2021-07-28] MEDS: Citalopram 20 MG Tablet PO (08:44)
[2021-07-28] MEDS: Aspirin E.C. 81 MG Tablet PO (08:45)
[2021-07-28] MEDS: Cholecalciferol (VIT D3) 25 MCG TABLET (1,000 UNITS) PO (08:45)
[2021-07-28] MEDS: Calcium Carb/Vitamin D 1 TABLET Tablet PO (08:45)
[2021-07-28] MEDS: Leflunomide 10 MG TABLET PO (08:45)
[2021-07-28] MEDS: Isosorbide Mononitrate 30 MG Tablet 15 MG PO (08:46)
[2021-07-28] MEDS: Multivitamins,Therapeutic Tablet 1 TABLET PO (08:46)
[2021-07-28] MEDS: Ascorbic Acid 500 MG Tablet PO (08:46)
[2021-07-28] MEDS: Acetaminophen 500 MG Tablet 1000 MG PO ×2 (08:47→18:11)
[2021-07-28] MEDS: Magnesium Chloride 64 MG Delay Rel.Tablet 128 MG PO (08:47)
[2021-07-28] MEDS: Losartan Potassium 50 MG Tablet PO (08:47)
[2021-07-28] MEDS: Pantoprazole Sodium 40 MG Tablet PO (08:47)
[2021-07-28] MEDS: amLODIPine 10 MG Tablet PO (08:47)
[2021-07-28] MEDS: traMADol 50 MG Tablet PO (08:54)
[2021-07-28 10:59] VITALS: PULSE 64; O2SAT 94
[2021-07-28 11:01] LABS: Bedside Glucose 175 mg/dL (74-106)
[2021-07-28 14:44] VITALS: BP 104/44; PULSE 61; RESP 17; TEMP 36.9; O2SAT 94
--- NOTE | 2021-07-28 15:16 | CHAPLAIN ---
Type of Pastoral Visit ___ Initial Visit _x__ Follow-up Visit ___ On-call Visit ___ General Patient Visit ___ Spiritual Assessment ___ Family Conference ___ Bereavement ___ Rapid Response ___ Code Blue ___ Other (describe below) Pastoral Care Referral From __x_ Patient ___ Family ___ Nurse ___ Physician ___ Home Energy Inspector ___ Scientific Research Associate ___ Other (describe below) Sacrament/Intervention _x__ Active listening ___ Anointing ___ Mormonism ___ Bereavement ___ Communion ___ [place] exploration ___ _x__ Life review _x__ Prayer ___ Reconciliation ___ Sacrament of Sick _x__ Supportive presence ___ Wedding ___ Other (describe below) Pastoral Comments several attempts over the last few days did not lead to a visit with this patient as she had either been sleeping or had therapy sessions; today visit was made for follow up; pt states she is doing pretty well and does see some improvement; pt concern is that improvement may not be enough for her to go home; pt decision will be forthcoming about placement; pt has sanchez in room and she states that friends call; pt welcomes the visit and prayer for spiritual care
[2021-07-28 16:26] LABS: Bedside Glucose 153 mg/dL (74-106)
[2021-07-28 17:52] VITALS: BP 150/66; PULSE 72
[2021-07-28] MEDS: Tamsulosin HCl 0.4 MG Capsule PO (17:53)
[2021-07-28] MEDS: Atorvastatin Calcium 20 MG Tablet PO (21:27)
[2021-07-28] MEDS: MELATONIN 10 MG TABLET PO (21:27)
[2021-07-28 21:46] LABS: Bedside Glucose 178 mg/dL (74-106)
[2021-07-29] MEDS: Menthol/Lanolin/Calamine/Znox 113 GM Tube 1 APPLIC TOPICAL ×2 (04:49→18:10)
[2021-07-29] MEDS: Ciprofloxacin 250 MG Tablet PO ×2 (04:51→18:10)
[2021-07-29] MEDS: Senna/Docusate Sodium 1 Tablet PO (04:51)
[2021-07-29] MEDS: Enoxaparin 30 MG/0.3 ML Syringe SC (04:51)
[2021-07-29] MEDS: Clobetasol Propionate 0.05% Cream 1 APPLIC TOPICAL ×2 (04:52→20:58)
[2021-07-29 04:53] VITALS: BP 121/50; PULSE 56
[2021-07-29] MEDS: Metoprolol(XL)Succ 25 MG Tablet PO ×2 (04:53→18:10)
[2021-07-29 05:54] LABS: Absolute Lymphocyte Count 2.01 X10^3/uL (0.83-4.51); Absolute Neutrophil Count 5.8 X10^3/uL (2.0-7.7); Basophil# 0.12 X10^3/uL; Basophil% 1.3 % (0-1); Eosinophil# 0.53 X10^3/uL; Eosinophils% 5.5 % (0-5); Hematocrit 35.1 % (37-47); Hemoglobin 11.4 g/dL (12.0-15.0); Lymphocyte # 2.01 X10^3/ul (0.83-4.51); Mean Corp Hgb Conc 32.5 g/dL (32-36); Mean Corpuscular Hgb 29.6 pg (27.0-32.0); Mean Corpuscular Volume 91.2 fL (81-99); Mean Platelet Vol. 10.8 fl (6.2-12.0); Monocyte# 0.95 X10^3/uL; Monocyte% 9.9 % (0-10); NRBC Flagged by Analyzer 0 % (0-5); Neutrophil % 60.8 % (47-70); Platelet Count 361 K/mm3 (150-450); RBC Distribution Width CV 13.4 % (11.6-14.6); RBC Distribution Width SD 45.1 fl (35.1-43.9); Red Blood Count 3.85 M/mm3 (4.2-5.4); White Blood Count 9.6 K/mm3 (4.4-11.0)
[2021-07-29 06:27] LABS: Anion Gap 4 (5-15); BUN 27 mg/dL (7-18); BUN/Creat Ratio 32.3 RATIO (10-20); Calcium,Total 9.3 mg/dL (8.5-10.1); Chloride 102 mmol/L (98-107); Creatinine, Serum 0.84 mg/dL (0.55-1.02); EST Glomerular Filtration Rate 69 mL/min (>60); Est Glom Filt Rate - Afr Amer 83 mL/min (>60); Estimated Creatinine Clearance 36.62 ml/min; Glucose 107 mg/dL (74-106); Potassium 4.5 mmol/L (3.5-5.1); Sodium Level 133 mmol/L (136-145)
[2021-07-29 06:31] LABS: Bedside Glucose 108 mg/dL (74-106)
[2021-07-29] MEDS: Acetaminophen 500 MG Tablet 1000 MG PO ×2 (08:51→20:57)
[2021-07-29] MEDS: Aspirin E.C. 81 MG Tablet PO (08:51)
[2021-07-29] MEDS: Multivitamins,Therapeutic Tablet 1 TABLET PO (08:51)
[2021-07-29] MEDS: Insulin Lispro 100 UNIT/ML INSULN.PEN 7 UNIT SC ×3 (08:51→18:09)
[2021-07-29] MEDS: Calcium Carb/Vitamin D 1 TABLET Tablet PO (08:52)
[2021-07-29] MEDS: Leflunomide 10 MG TABLET PO (08:52)
[2021-07-29] MEDS: Citalopram 20 MG Tablet PO (08:52)
[2021-07-29] MEDS: Magnesium Chloride 64 MG Delay Rel.Tablet 128 MG PO (08:52)
[2021-07-29] MEDS: Pantoprazole Sodium 40 MG Tablet PO (08:52)
[2021-07-29] MEDS: Cholecalciferol (VIT D3) 25 MCG TABLET (1,000 UNITS) PO (08:53)
[2021-07-29] MEDS: Ascorbic Acid 500 MG Tablet PO (08:53)
[2021-07-29] MEDS: amLODIPine 10 MG Tablet PO (08:54)
[2021-07-29] MEDS: Losartan Potassium 50 MG Tablet PO (08:55)
[2021-07-29] MEDS: Isosorbide Mononitrate 30 MG Tablet 15 MG PO (08:56)
[2021-07-29] MEDS: traMADol 50 MG Tablet PO ×2 (08:59→23:46)
[2021-07-29 10:55] LABS: Bedside Glucose 172 mg/dL (74-106)
[2021-07-29 13:47] VITALS: BP 111/44; PULSE 58; RESP 15; TEMP 36.2; O2SAT 91
--- NOTE | 2021-07-29 15:58 | CASEMGMT ---
Addendum entered by Cari Moreau 07/30/21 15:05: [facility] will complete assessment with pt on 08/02. Addendum entered by Cari Moreau 07/30/21 12:26: [facility] denied d/t to pressure ulcers and too much care. Addendum entered by Cari Moreau 07/30/21 10:40: [facility] feels pt is more appropriate for LTC. SW sent updated therapy notes for them to review as pt has made improvements. [facility] to review, but still skeptical. Spoke with dtr to update on above and encouraged to choose other ALs in case [facility] cannot accept. Dtr requested referrals to [facility] and [facility]. Dtr and pt would like to return home with care, but dtr having trouble finding staff. Advised to contact agencies again since she hasn't spoken to them since May. Reminded her multiple agencies could assist and to put pt's name on waitlists. Dtr plans to recontact agencies. SW made referrals to both ALs. SW to continue to follow. Original Note: Social Work IDT discussed goal for DC is about 2 weeks. SW contacted the dtr to provide update. Dtr confirmed the goal is for pt to DC to [facility], respite, then decide from there. Explained [facility] has not accepted yet, but will update dtr once outcome is received. Dtr stated she is working with an elder law city attorney to work through pt's finances. Dtr expressed appreciation. Left message with [facility] to f/u on status. SW to continue to follow. Cari Moreau, STEPHANIE LARIOSW
[2021-07-29 16:16] LABS: Bedside Glucose 165 mg/dL (74-106)
[2021-07-29] MEDS: Tamsulosin HCl 0.4 MG Capsule PO (18:09)
[2021-07-29 18:10] VITALS: BP 111/52; PULSE 64
[2021-07-29] MEDS: MELATONIN 10 MG TABLET PO (20:58)
[2021-07-29] MEDS: Atorvastatin Calcium 20 MG Tablet PO (20:59)
[2021-07-29 21:41] LABS: Bedside Glucose 214 mg/dL (74-106)
[2021-07-29 22:06] VITALS: PULSE 53; RESP 16; O2SAT 93
[2021-07-30] MEDS: Menthol/Lanolin/Calamine/Znox 113 GM Tube 1 APPLIC TOPICAL ×2 (06:22→17:51)
[2021-07-30] MEDS: Enoxaparin 30 MG/0.3 ML Syringe SC (06:22)
[2021-07-30 06:23] VITALS: BP 125/50; PULSE 54
[2021-07-30] MEDS: Senna/Docusate Sodium 1 Tablet PO (06:23)
[2021-07-30] MEDS: Metoprolol(XL)Succ 25 MG Tablet PO ×2 (06:23→17:52)
[2021-07-30] MEDS: Clobetasol Propionate 0.05% Cream 1 APPLIC TOPICAL ×2 (06:24→21:03)
[2021-07-30 06:31] LABS: Bedside Glucose 139 mg/dL (74-106)
[2021-07-30] MEDS: Insulin Lispro 100 UNIT/ML INSULN.PEN 7 UNIT SC ×3 (09:21→17:48)
[2021-07-30] MEDS: Multivitamins,Therapeutic Tablet 1 TABLET PO (09:23)
[2021-07-30] MEDS: Aspirin E.C. 81 MG Tablet PO (09:23)
[2021-07-30] MEDS: Magnesium Chloride 64 MG Delay Rel.Tablet 128 MG PO (09:24)
[2021-07-30] MEDS: Citalopram 20 MG Tablet PO (09:25)
[2021-07-30] MEDS: Ascorbic Acid 500 MG Tablet PO (09:25)
[2021-07-30] MEDS: amLODIPine 10 MG Tablet PO (09:25)
[2021-07-30] MEDS: Cholecalciferol (VIT D3) 25 MCG TABLET (1,000 UNITS) PO (09:26)
[2021-07-30] MEDS: Leflunomide 10 MG TABLET PO (09:26)
[2021-07-30] MEDS: Calcium Carb/Vitamin D 1 TABLET Tablet PO (09:26)
[2021-07-30] MEDS: Pantoprazole Sodium 40 MG Tablet PO (09:26)
[2021-07-30] MEDS: Isosorbide Mononitrate 30 MG Tablet 15 MG PO (09:27)
[2021-07-30] MEDS: Losartan Potassium 50 MG Tablet PO (09:27)
[2021-07-30] MEDS: traMADol 50 MG Tablet PO (09:31)
[2021-07-30 09:35] VITALS: BP 138/64; PULSE 57
[2021-07-30 11:16] LABS: Bedside Glucose 234 mg/dL (74-106)
[2021-07-30 13:50] VITALS: PULSE 64; RESP 18; O2SAT 95
[2021-07-30 14:42] VITALS: BP 110/51; PULSE 65; RESP 14; TEMP 36.1; O2SAT 95
[2021-07-30 16:36] LABS: Bedside Glucose 155 mg/dL (74-106)
[2021-07-30] MEDS: Tamsulosin HCl 0.4 MG Capsule PO (17:51)
[2021-07-30 17:52] VITALS: BP 110/51; PULSE 65
[2021-07-30] MEDS: Atorvastatin Calcium 20 MG Tablet PO (20:53)
[2021-07-30] MEDS: MELATONIN 10 MG TABLET PO (20:54)
[2021-07-30] MEDS: Acetaminophen 500 MG Tablet 1000 MG PO (20:59)
[2021-07-31 01:11] LABS: Bedside Glucose 167 mg/dL (74-106)
[2021-07-31 04:48] VITALS: BP 121/45; PULSE 46
[2021-07-31] MEDS: Metoprolol(XL)Succ 25 MG Tablet PO ×2 (04:48→17:28)
[2021-07-31] MEDS: Menthol/Lanolin/Calamine/Znox 113 GM Tube 1 APPLIC TOPICAL ×2 (04:49→17:25)
[2021-07-31] MEDS: Enoxaparin 30 MG/0.3 ML Syringe SC (04:49)
[2021-07-31] MEDS: Clobetasol Propionate 0.05% Cream 1 APPLIC TOPICAL ×2 (04:50→17:29)
[2021-07-31 06:46] LABS: Bedside Glucose 128 mg/dL (74-106)
[2021-07-31] MEDS: Calcium Carb/Vitamin D 1 TABLET Tablet PO (08:08)
[2021-07-31] MEDS: Ascorbic Acid 500 MG Tablet PO (08:08)
[2021-07-31] MEDS: traMADol 50 MG Tablet PO ×2 (08:08→22:04)
[2021-07-31] MEDS: Cholecalciferol (VIT D3) 25 MCG TABLET (1,000 UNITS) PO (08:08)
[2021-07-31] MEDS: Magnesium Chloride 64 MG Delay Rel.Tablet 128 MG PO (08:08)
[2021-07-31] MEDS: Acetaminophen 500 MG Tablet 1000 MG PO ×2 (08:08→22:03)
[2021-07-31] MEDS: amLODIPine 10 MG Tablet PO (08:08)
[2021-07-31] MEDS: Leflunomide 10 MG TABLET PO (08:09)
[2021-07-31] MEDS: Isosorbide Mononitrate 30 MG Tablet 15 MG PO (08:09)
[2021-07-31] MEDS: Losartan Potassium 50 MG Tablet PO (08:10)
[2021-07-31] MEDS: Multivitamins,Therapeutic Tablet 1 TABLET PO (08:10)
[2021-07-31] MEDS: Citalopram 20 MG Tablet PO (08:10)
[2021-07-31] MEDS: Aspirin E.C. 81 MG Tablet PO (08:10)
[2021-07-31] MEDS: Pantoprazole Sodium 40 MG Tablet PO (08:10)
[2021-07-31] MEDS: Insulin Lispro 100 UNIT/ML INSULN.PEN 7 UNIT SC ×3 (08:14→17:26)
[2021-07-31 11:16] LABS: Bedside Glucose 197 mg/dL (74-106)
[2021-07-31 14:23] VITALS: BP 96/44; PULSE 63; RESP 17; TEMP 36.6; O2SAT 93
[2021-07-31 16:45] LABS: Bedside Glucose 142 mg/dL (74-106)
[2021-07-31] MEDS: Tamsulosin HCl 0.4 MG Capsule PO (17:25)
[2021-07-31 17:28] VITALS: BP 131/59; PULSE 63
[2021-07-31 21:11] LABS: Bedside Glucose 96 mg/dL (74-106)
[2021-07-31] MEDS: Atorvastatin Calcium 20 MG Tablet PO (22:02)
[2021-07-31] MEDS: MELATONIN 10 MG TABLET PO (22:03)
--- NOTE | 2021-07-31 22:25 | NURSING ---
Blood sugar 96 this hs. Pt refuses scheduled Lantus insulin due to concerns with hypoglycemia upon awakening. Reports she takes 10 units at home. [address] order. Given one cup of orange juice, two packets of errol crackers, and two pads of peanut butter. Alert and able to carry on conversation w/ this nurse without any difficulty. Call light w/ in reach. Will continue to monitor.
[2021-08-01 06:26] LABS: Bedside Glucose 208 mg/dL (74-106)
[2021-08-01] MEDS: Enoxaparin 30 MG/0.3 ML Syringe SC (06:34)
[2021-08-01] MEDS: Menthol/Lanolin/Calamine/Znox 113 GM Tube 1 APPLIC TOPICAL ×2 (06:35→18:06)
[2021-08-01] MEDS: Senna/Docusate Sodium 1 Tablet PO ×2 (06:36→18:06)
[2021-08-01 06:40] VITALS: BP 121/44; PULSE 48
--- NOTE | 2021-08-01 06:40 | NURSING ---
Metoprolol Succinate held at this time due to low DBP and HR. Will report to onciming nurse and continue to monitor.
[2021-08-01 09:03] VITALS: BP 121/44; PULSE 48
[2021-08-01] MEDS: Clobetasol Propionate 0.05% Cream 1 APPLIC TOPICAL ×2 (09:03→18:06)
[2021-08-01] MEDS: Citalopram 20 MG Tablet PO (09:04)
[2021-08-01] MEDS: Aspirin E.C. 81 MG Tablet PO (09:04)
[2021-08-01] MEDS: Insulin Lispro 100 UNIT/ML INSULN.PEN 7 UNIT SC ×3 (09:05→18:05)
[2021-08-01] MEDS: Isosorbide Mononitrate 30 MG Tablet 15 MG PO (09:09)
[2021-08-01] MEDS: Leflunomide 10 MG TABLET PO (09:10)
[2021-08-01] MEDS: Magnesium Chloride 64 MG Delay Rel.Tablet 128 MG PO (09:10)
[2021-08-01] MEDS: amLODIPine 10 MG Tablet PO (09:11)
[2021-08-01] MEDS: Multivitamins,Therapeutic Tablet 1 TABLET PO (09:11)
[2021-08-01] MEDS: Pantoprazole Sodium 40 MG Tablet PO (09:11)
[2021-08-01] MEDS: Calcium Carb/Vitamin D 1 TABLET Tablet PO (09:11)
[2021-08-01] MEDS: Acetaminophen 500 MG Tablet 1000 MG PO ×2 (09:12→22:46)
[2021-08-01] MEDS: Cholecalciferol (VIT D3) 25 MCG TABLET (1,000 UNITS) PO (09:12)
[2021-08-01] MEDS: Ascorbic Acid 500 MG Tablet PO (09:12)
[2021-08-01] MEDS: traMADol 50 MG Tablet PO (09:14)
[2021-08-01 12:21] LABS: Bedside Glucose 262 mg/dL (74-106)
[2021-08-01 15:21] VITALS: BP 108/52; PULSE 63; RESP 16; TEMP 36.4; O2SAT 96
[2021-08-01 16:50] LABS: Bedside Glucose 116 mg/dL (74-106)
[2021-08-01] MEDS: Tamsulosin HCl 0.4 MG Capsule PO (18:06)
[2021-08-01 18:07] VITALS: BP 108/52; PULSE 63
[2021-08-01] MEDS: Metoprolol(XL)Succ 25 MG Tablet PO (18:07)
[2021-08-01 22:06] LABS: Bedside Glucose 217 mg/dL (74-106)
[2021-08-01] MEDS: Atorvastatin Calcium 20 MG Tablet PO (22:46)
[2021-08-01] MEDS: MELATONIN 10 MG TABLET PO (22:46)
[2021-08-02 06:07] VITALS: BP 140/66; PULSE 55
[2021-08-02] MEDS: Metoprolol(XL)Succ 25 MG Tablet PO ×2 (06:07→17:59)
[2021-08-02] MEDS: Clobetasol Propionate 0.05% Cream 1 APPLIC TOPICAL ×2 (06:07→17:56)
[2021-08-02] MEDS: Menthol/Lanolin/Calamine/Znox 113 GM Tube 1 APPLIC TOPICAL ×2 (06:07→17:57)
[2021-08-02] MEDS: Senna/Docusate Sodium 1 Tablet PO (06:07)
[2021-08-02] MEDS: Enoxaparin 30 MG/0.3 ML Syringe SC (06:07)
[2021-08-02 06:31] LABS: Bedside Glucose 182 mg/dL (74-106)
[2021-08-02] MEDS: Citalopram 20 MG Tablet PO (08:12)
[2021-08-02] MEDS: Leflunomide 10 MG TABLET PO (08:13)
[2021-08-02] MEDS: Isosorbide Mononitrate 30 MG Tablet 15 MG PO (08:13)
[2021-08-02] MEDS: Aspirin E.C. 81 MG Tablet PO (08:13)
[2021-08-02] MEDS: Calcium Carb/Vitamin D 1 TABLET Tablet PO (08:13)
[2021-08-02] MEDS: Insulin Lispro 100 UNIT/ML INSULN.PEN 7 UNIT SC ×3 (08:13→17:52)
[2021-08-02] MEDS: Magnesium Chloride 64 MG Delay Rel.Tablet 128 MG PO (08:14)
[2021-08-02] MEDS: Losartan Potassium 50 MG Tablet PO (08:14)
[2021-08-02] MEDS: Acetaminophen 500 MG Tablet 1000 MG PO ×2 (08:14→21:02)
[2021-08-02] MEDS: Multivitamins,Therapeutic Tablet 1 TABLET PO (08:14)
[2021-08-02] MEDS: amLODIPine 10 MG Tablet PO (08:15)
[2021-08-02] MEDS: Cholecalciferol (VIT D3) 25 MCG TABLET (1,000 UNITS) PO (08:15)
[2021-08-02] MEDS: Ascorbic Acid 500 MG Tablet PO (08:15)
[2021-08-02] MEDS: Pantoprazole Sodium 40 MG Tablet PO (08:15)
[2021-08-02] MEDS: traMADol 50 MG Tablet PO (09:05)
[2021-08-02 11:06] LABS: Bedside Glucose 257 mg/dL (74-106)
[2021-08-02 15:18] VITALS: BP 107/53; PULSE 59; RESP 16; TEMP 36.3; O2SAT 96
[2021-08-02 15:51] LABS: Bedside Glucose 224 mg/dL (74-106)
--- NOTE | 2021-08-02 17:07 | CASEMGMT ---
Social Work SW spoke with Madison at [facility] Pt was assessed today for assisted living. Prior to making a decision [facility] would like information on pt skin condition. Report faxed. Will await determination. ASHU Bradley
[2021-08-02] MEDS: Tamsulosin HCl 0.4 MG Capsule PO (17:55)
[2021-08-02 17:59] VITALS: BP 149/56; PULSE 67
--- NOTE | 2021-08-02 18:26 | PCM.CONS.GEN ---
Assessment & Plan Assessment/Plan (1) Tinea unguium: (2) Pain in left toe(s): (3) Pain in right toe(s): (4) Diabetes mellitus: PLAN: This is an 85-year-old female consulted to podiatry for elongated, thickened, discolored, painful toenails 1 through 5 bilaterally. Patient was seen and examined. She has palpable pulses DP and PT bilaterally with brisk capillary refill to the digits. Nails 1, 2, 3, 4, 5 bilaterally are elongated, discolored yellow, thickened, with subungual debris is present and pain on palpation. I reviewed the patient's case. The etiology of thickened toenails was briefly reviewed including fungus or microtrauma. The nails were debrided with a nail nipper after verbal consent was obtained without incident. The nails were debrided in length and thickness to reduce pressure, potential fungal load, and to prevent wound formation. The patient tolerated this well. The patient elects proceed with palliative care only at this time with the nails and will hold off on further work-up. To follow-up with the [facility] if needed in the future for this condition. To wear protective and supportive shoes. To check feet daily and keep webspaces clean and dry. To moisturize skin to preserve skin integrity was also recommended. She was encouraged to follow-up with her regular junior systems engineer or with myself at the [facility] if needed in the future for this condition. The problems addressed require a low medical decision making level which includes two or more minor problems, a stable chronic illness, or an acute uncomplicated illness or injury. The medical decision making level is low. There is noted low risk of morbidity after considering this treatment plan and diagnostic data. Note: LOAG speech recognition rejogger software was used to create portions of this document. Sound-alike and misspelled words, as well as other rejogger errors may be contained in the documentation. Dr. Jr Calzada Jr., D.P.M. [facility] [place] [phone] HPI Consult Data Date of Consult: 08/02/21 HPI Narrative HPI Narrative: ESTUARDO MOODY, is a 85 F who presents for elongated, thickened, discolored, and painful toenails 1 through 5 bilaterally. She states she was supposed to see a junior systems engineer the day she had her syncopal episode and fell. She states that the nails have become elongated and are painful against the bed sheets and when in shoe gear. She admits to being a diabetic and states that she cannot cut them herself as she fears infection risk. She asked for help safely trimming her nails today. [facility] Medical History Abnormal stress test Acute respiratory failure with hypoxia Arteriovenous fistula, acquired, of heart Asthma Atherosclerosis of [place] coronary artery of [place] heart without angina pectoris Bilateral carotid artery stenosis Cerebral artery occlusion Chest pain COPD (chronic obstructive pulmonary disease) Coronary artery anomaly Debility Diabetes Epigastric pain Essential (primary) hypertension Falls Former smoker GERD (gastroesophageal reflux disease) Insulin dependent type 2 diabetes mellitus Limited mobility Presence of stent in coronary artery (~02/27/18) Pure hypercholesterolemia Sleep apnea Spinal stenosis Stage II pressure ulcer of left buttock Stage II pressure ulcer of right buttock Stage II pressure ulcer of sacral region TIA (transient ischemic attack) Type 2 diabetes mellitus with other skin ulcer Type 2 diabetes mellitus, with long-term current use of insulin Home Medications multivitamin 1 tab PO DAILY 05/30/17 [History Last Taken 07/13/21] pantoprazole 40 mg tablet,delayed release 40 mg PO DAILY 05/30/17 [History Last Taken 07/13/21] metoprolol succinate 25 mg tablet,extended release 24 hr 12.5 mg PO BID tab 01/11/18 [History Last Taken 07/13/21] citalopram 20 mg PO DAILY 04/28/20 [History Last Taken 07/13/21] leflunomide 10 mg PO DAILY 04/28/20 [History Last Taken 07/13/21] tramadol 50 mg PO BID PRN PRN 04/28/20 [History Last Taken 07/13/21] albuterol sulfate 1 - 2 puff INHALATION Q6H PRN PRN 05/28/20 [History Last Taken Unknown] isosorbide mononitrate 30 mg tablet,extended release 24 hr 15 mg PO DAILY #45 tab 06/08/20 [Rx Last Taken 07/13/21] aspirin 81 mg tablet,delayed release 81 mg PO DAILY 06/17/20 [History Last Taken 07/13/21] simvastatin 40 mg tablet 40 mg PO QHS tab 04/07/21 [History Last Taken 07/12/21] insulin aspart U-100 8 unit SC TID #0 ml 05/03/21 [Rx Last Taken 07/13/21] Black Elderberry 1,000 mg PO/SL DAILY 05/05/21 [History Last Taken 07/13/21] acetaminophen 500 mg PO BID PRN 05/05/21 [History Last Taken 07/12/21] amlodipine 2.5 mg PO DAILY 05/05/21 [History Last Taken 07/13/21] ascorbic acid (vitamin C) 500 mg PO DAILY 05/05/21 [History Last Taken 07/13/21] calcium-vitamin D3-vitamin K 1 tab PO DAILY 05/05/21 [History Last Taken 07/13/21] cholecalciferol (vitamin D3) 25 mcg PO DAILY 05/05/21 [History Last Taken 07/13/21] cranberry 2,000 mg PO DAILY 05/05/21 [History Last Taken 07/13/21] clobetasol 1 applic TOPICAL BID 06/04/21 [History Last Taken 07/13/21] fluticasone furoate 50 mcg INHALATION DAILY PRN 06/04/21 [History Last Taken Unknown] insulin detemir U-100 10 unit SQ QHS 07/13/21 [History Last Taken 07/12/21] losartan 50 mg PO DAILY 07/13/21 [History Last Taken 07/13/21] magnesium 400 mg PO TID 07/14/21 [History Last Taken Unknown] Allergy/AdvReac Type Severity Reaction Status Date / Time metronidazole [From Flagyl] Allergy PT UNSURE Verified 07/13/21 18:00 OF REACTION oxycodone HCl Allergy hallucinati Verified 07/13/21 18:00 [From OxyContin] on lidocaine AdvReac Nausea Verified 07/13/21 18:01 Family History Father CAD (coronary artery disease) Myocardial infarction Mother Cancer Sister Breast cancer Surgical History H/O tubal ligation History of coronary artery stent placement History of cystoscopy (06/03/20) Hx of cardiac cath Presence of coronary angioplasty implant and graft (~02/27/18) S/p bilateral carpal tunnel release Social History household members: none housing: apartment current occupational status: retired leisure activities: games and other Smoking Status: Former smoker how long ago did patient quit smokin years ago, when smoking 1/4-1/2 ppd maximum. second hand exposure: No alcohol intake: never substance use type: does not use caffeine: Yes Type: coffee Number of servings: 2 ROS Constitutional Constitutional: Denies body ache(s), chills, headache(s) or malaise Eyes Eyes: Denies double vision, dry eyes, erythema or eye pain ENT HEENT: Denies headache(s), sore throat or tinnitus Cardiovascular Cardiovascular: Denies chest pain, claudication, leg edema or palpitations Respiratory/Chest Respiratory/Chest: Denies chest congestion, chest tightness, cough or productive cough Gastrointestinal Gastrointestinal: Denies constipation, cramping, diarrhea, dysphagia or vomiting Genitourinary Genitourinary: Denies dysuria, hematuria or urinary frequency Musculoskeletal Musculoskeletal: Denies joint pain, joint stiffness, joint swelling, numbness or tingling Integumentary Integumentary: Denies jaundice, lesions, pruritus or rash Neurologic Neurologic: Denies confusion, dizziness, headache(s) or seizures Psychiatric Psychiatric: Denies anxiety Endocrine Endocrinology: Denies polydipsia, polyphagia or polyuria Hematologic/Lymphatic Hematologic/Lymphatic: Denies easy bleeding, easy bruising or lymphadenopathy Physical Exam Const alert, oriented x3 and no apparent distress General Appearance: cooperative and comfortable HEENT normocephalic Eyes General Eye: normal appearance of both eyes Neck General: normal visual inspection Lymph Lymphatic: no lymphadenopathy noted and no lymphedema noted Resp normal respiratory effort Cardio regular rate and regular rhythm Extremity General Extremity: Negative for calf tenderness Skin Skin Narrative: Skin intact with no rashes, no lesions, no erythema, no ecchymosis, no subcutaneous nodules bilaterally. Webspaces are C/D/I bilaterally. Skin left foot soft supple with normal turgor. Skin right foot plantarly mildly xerotic with peeling and normal turgor. Nails 1, 2, 3, 4, 5 bilaterally are elongated, thickened, discolored yellow, with subungual debris's and positive pain with palpation. DP and PT pulses palpable bilateral. Cap fill time less than 3 seconds to the digits bilaterally. Hair growth is absent and temperature gradient normal. Neuro oriented x3 and moves all extremities Motor Exam: strength 5/5 throughout and clonus absent Lab / Micro Data Result Diagrams: 07/29/21 05:18 07/29/21 05:18 Labs: Laboratory Results - last 24 hr 08/01/21 21:34: POC Glucose 217 H 08/02/21 06:18: POC Glucose 182 H 08/02/21 10:58: POC Glucose 257 H 08/02/21 15:39: POC Glucose 224 H
--- NOTE | 2021-08-02 18:29 | NURSING ---
Podiatry in this evening and trimmed toenails
[2021-08-02] MEDS: Atorvastatin Calcium 20 MG Tablet PO (20:59)
[2021-08-02] MEDS: MELATONIN 10 MG TABLET PO (20:59)
[2021-08-02 21:20] LABS: Bedside Glucose 199 mg/dL (74-106)
[2021-08-03] MEDS: Menthol/Lanolin/Calamine/Znox 113 GM Tube 1 APPLIC TOPICAL (05:59)
[2021-08-03] MEDS: Enoxaparin 30 MG/0.3 ML Syringe SC (05:59)
[2021-08-03] MEDS: Senna/Docusate Sodium 1 Tablet PO (05:59)
[2021-08-03 06:00] VITALS: BP 152/54; PULSE 60
[2021-08-03] MEDS: Clobetasol Propionate 0.05% Cream 1 APPLIC TOPICAL ×2 (06:00→21:57)
[2021-08-03] MEDS: Metoprolol(XL)Succ 25 MG Tablet PO ×2 (06:00→18:00)
[2021-08-03 08:02] LABS: Bedside Glucose 216 mg/dL (74-106)
[2021-08-03] MEDS: Insulin Lispro 100 UNIT/ML INSULN.PEN 7 UNIT SC ×2 (08:03→11:39)
[2021-08-03] MEDS: Calcium Carb/Vitamin D 1 TABLET Tablet PO (08:06)
[2021-08-03] MEDS: Ascorbic Acid 500 MG Tablet PO (08:06)
[2021-08-03] MEDS: Pantoprazole Sodium 40 MG Tablet PO (08:06)
[2021-08-03] MEDS: Cholecalciferol (VIT D3) 25 MCG TABLET (1,000 UNITS) PO (08:06)
[2021-08-03] MEDS: amLODIPine 10 MG Tablet PO (08:07)
[2021-08-03] MEDS: Magnesium Chloride 64 MG Delay Rel.Tablet 128 MG PO (08:07)
[2021-08-03] MEDS: Aspirin E.C. 81 MG Tablet PO (08:07)
[2021-08-03] MEDS: Multivitamins,Therapeutic Tablet 1 TABLET PO (08:07)
[2021-08-03] MEDS: Losartan Potassium 50 MG Tablet PO (08:08)
[2021-08-03] MEDS: Citalopram 20 MG Tablet PO (08:08)
[2021-08-03] MEDS: Isosorbide Mononitrate 30 MG Tablet 15 MG PO (08:09)
[2021-08-03] MEDS: Leflunomide 10 MG TABLET PO (08:09)
[2021-08-03 08:15] VITALS: BP 163/64; PULSE 61
[2021-08-03] MEDS: traMADol 50 MG Tablet PO (09:29)
[2021-08-03] MEDS: Acetaminophen 500 MG Tablet 1000 MG PO (09:30)
[2021-08-03 09:40] VITALS: PULSE 66; RESP 18; O2SAT 97
[2021-08-03 11:11] LABS: Bedside Glucose 325 mg/dL (74-106)
[2021-08-03 13:55] VITALS: BP 105/47; PULSE 68; RESP 18; TEMP 36.1; O2SAT 94
--- NOTE | 2021-08-03 14:16 | CASEMGMT ---
Social Work Followed up with W on AL assessment. [facility] is able to accept, however, has concerns about skin areas and requested further information. Madison from [facility] did state she spoke with dtr about outcome. Spoke with nursing and provided updated skin information to [facility]. [facility] to review with DON. Followed up with [facility] - they would place her in SNF first then assess if pt is appropriate for AL. SW to continue to follow. Cari Moreau ,PERSONAL LINES AGENT CONTENT CREATION MANAGER
[2021-08-03 16:46] LABS: Bedside Glucose 264 mg/dL (74-106)
[2021-08-03] MEDS: Tamsulosin HCl 0.4 MG Capsule PO (17:57)
[2021-08-03 18:00] VITALS: BP 169/70; PULSE 75
[2021-08-03] MEDS: Insulin Lispro 100 UNIT/ML INSULN.PEN 10 UNIT SC (18:01)
[2021-08-03 18:05] VITALS: BP 169/70; PULSE 75
[2021-08-03 21:51] LABS: Bedside Glucose 238 mg/dL (74-106)
[2021-08-03] MEDS: MELATONIN 10 MG TABLET PO (21:59)
[2021-08-03] MEDS: Atorvastatin Calcium 20 MG Tablet PO (22:00)
[2021-08-04 03:31] LABS: Bedside Glucose 64 mg/dL (74-106)
[2021-08-04 04:51] LABS: Bedside Glucose 138 mg/dL (74-106)
[2021-08-04 05:47] VITALS: BP 135/55; PULSE 64; O2SAT 99
[2021-08-04 05:48] VITALS: PULSE 64
[2021-08-04] MEDS: Senna/Docusate Sodium 1 Tablet PO (05:48)
[2021-08-04] MEDS: Enoxaparin 30 MG/0.3 ML Syringe SC (05:48)
[2021-08-04] MEDS: Metoprolol(XL)Succ 25 MG Tablet PO ×2 (05:48→18:31)
[2021-08-04] MEDS: Clobetasol Propionate 0.05% Cream 1 APPLIC TOPICAL ×2 (05:50→22:05)
[2021-08-04] MEDS: Insulin Lispro 100 UNIT/ML INSULN.PEN 10 UNIT SC ×2 (08:25→11:43)
[2021-08-04] MEDS: Calcium Carb/Vitamin D 1 TABLET Tablet PO (08:27)
[2021-08-04] MEDS: Aspirin E.C. 81 MG Tablet PO (08:27)
[2021-08-04] MEDS: Magnesium Chloride 64 MG Delay Rel.Tablet 128 MG PO (08:27)
[2021-08-04] MEDS: amLODIPine 10 MG Tablet PO (08:28)
[2021-08-04] MEDS: Ascorbic Acid 500 MG Tablet PO (08:28)
[2021-08-04] MEDS: Cholecalciferol (VIT D3) 25 MCG TABLET (1,000 UNITS) PO (08:28)
[2021-08-04] MEDS: Citalopram 20 MG Tablet PO (08:28)
[2021-08-04] MEDS: Multivitamins,Therapeutic Tablet 1 TABLET PO (08:28)
[2021-08-04] MEDS: Isosorbide Mononitrate 30 MG Tablet 15 MG PO (08:29)
[2021-08-04] MEDS: Losartan Potassium 50 MG Tablet PO (08:29)
[2021-08-04] MEDS: Leflunomide 10 MG TABLET PO (08:30)
[2021-08-04] MEDS: Acetaminophen 500 MG Tablet 1000 MG PO (08:31)
[2021-08-04] MEDS: Pantoprazole Sodium 40 MG Tablet PO (08:31)
[2021-08-04] MEDS: traMADol 50 MG Tablet PO (08:34)
[2021-08-04 08:42] VITALS: BP 164/56; PULSE 59
[2021-08-04 11:11] LABS: Bedside Glucose 111 mg/dL (74-106)
[2021-08-04 16:00] VITALS: BP 149/67; PULSE 58; RESP 16; TEMP 37; O2SAT 96
[2021-08-04 16:06] LABS: Bedside Glucose 96 mg/dL (74-106)
[2021-08-04] MEDS: Tamsulosin HCl 0.4 MG Capsule PO (18:30)
[2021-08-04 18:31] VITALS: BP 149/67; PULSE 58
[2021-08-04 21:54] VITALS: PULSE 64; RESP 16; O2SAT 97
[2021-08-04 21:56] LABS: Bedside Glucose 230 mg/dL (74-106)
[2021-08-04] MEDS: MELATONIN 10 MG TABLET PO (22:02)
[2021-08-04] MEDS: Atorvastatin Calcium 20 MG Tablet PO (22:02)
[2021-08-05 05:07] VITALS: BP 130/53; PULSE 64
[2021-08-05 05:09] VITALS: PULSE 64
[2021-08-05] MEDS: Metoprolol(XL)Succ 25 MG Tablet PO ×2 (05:09→17:45)
[2021-08-05] MEDS: Enoxaparin 30 MG/0.3 ML Syringe SC (05:09)
[2021-08-05] MEDS: Menthol/Lanolin/Calamine/Znox 113 GM Tube 1 APPLIC TOPICAL ×2 (05:10→17:44)
[2021-08-05] MEDS: Clobetasol Propionate 0.05% Cream 1 APPLIC TOPICAL (05:12)
[2021-08-05 05:40] LABS: Absolute Lymphocyte Count 2.08 X10^3/uL (0.83-4.51); Basophil# 0.09 X10^3/uL; Basophil% 0.7 % (0-1); Eosinophil# 0.48 X10^3/uL; Eosinophils% 3.8 % (0-5); Hematocrit 35.8 % (37-47); Hemoglobin 12.1 g/dL (12.0-15.0); Lymphocyte # 2.08 X10^3/ul (0.83-4.51); Lymphocyte % 16.3 % (19-41); Mean Corp Hgb Conc 33.8 g/dL (32-36); Mean Corpuscular Hgb 30.1 pg (27.0-32.0); Mean Corpuscular Volume 89.1 fL (81-99); Mean Platelet Vol. 10.8 fl (6.2-12.0); Monocyte# 1.06 X10^3/uL; Monocyte% 8.3 % (0-10); NRBC Flagged by Analyzer 0 % (0-5); Neutrophil % 70.6 % (47-70); Platelet Count 323 K/mm3 (150-450); RBC Distribution Width CV 13.2 % (11.6-14.6); RBC Distribution Width SD 43.7 fl (35.1-43.9); Red Blood Count 4.02 M/mm3 (4.2-5.4); White Blood Count 12.8 K/mm3 (4.4-11.0)
[2021-08-05 05:55] LABS: Anion Gap 4 (5-15); BUN 25 mg/dL (7-18); BUN/Creat Ratio 33.5 RATIO (10-20); Calcium,Total 9.3 mg/dL (8.5-10.1); Chloride 104 mmol/L (98-107); Creatinine, Serum 0.75 mg/dL (0.55-1.02); EST Glomerular Filtration Rate 78 mL/min (>60); Est Glom Filt Rate - Afr Amer 95 mL/min (>60); Estimated Creatinine Clearance 30.97 ml/min; Glucose 85 mg/dL (74-106); Potassium 4.6 mmol/L (3.5-5.1); Sodium Level 136 mmol/L (136-145)
[2021-08-05 06:46] LABS: Bedside Glucose 97 mg/dL (74-106)
[2021-08-05] MEDS: Insulin Lispro 100 UNIT/ML INSULN.PEN 10 UNIT SC ×3 (08:59→17:44)
[2021-08-05] MEDS: Pantoprazole Sodium 40 MG Tablet PO (09:00)
[2021-08-05] MEDS: Multivitamins,Therapeutic Tablet 1 TABLET PO (09:00)
[2021-08-05] MEDS: Magnesium Chloride 64 MG Delay Rel.Tablet 128 MG PO (09:00)
[2021-08-05] MEDS: Leflunomide 10 MG TABLET PO (09:00)
[2021-08-05] MEDS: Calcium Carb/Vitamin D 1 TABLET Tablet PO (09:00)
[2021-08-05] MEDS: Citalopram 20 MG Tablet PO (09:00)
[2021-08-05] MEDS: Ascorbic Acid 500 MG Tablet PO (09:01)
[2021-08-05] MEDS: Cholecalciferol (VIT D3) 25 MCG TABLET (1,000 UNITS) PO (09:01)
[2021-08-05] MEDS: Acetaminophen 500 MG Tablet 1000 MG PO ×2 (09:01→20:21)
[2021-08-05] MEDS: Aspirin E.C. 81 MG Tablet PO (09:01)
[2021-08-05] MEDS: Isosorbide Mononitrate 30 MG Tablet 15 MG PO (09:02)
[2021-08-05] MEDS: amLODIPine 10 MG Tablet PO (09:02)
[2021-08-05] MEDS: Losartan Potassium 50 MG Tablet PO (09:02)
[2021-08-05] MEDS: traMADol 50 MG Tablet PO (09:04)
--- NOTE | 2021-08-05 10:18 | CASEMGMT ---
Social Work Spoke with dtr to follow up on plans. Dtr confirms pt will DC to [facility]. 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 Madison from [facility] will update dtr and this worker when the room is ready and will set DC date. Updated IDT. Dtr appreciative. Will continue to follow. Cari Moreau, STEPHANIE LARIOSW
[2021-08-05 11:01] LABS: Bedside Glucose 136 mg/dL (74-106)
[2021-08-05 14:06] VITALS: BP 110/46; PULSE 62; RESP 15; TEMP 35.8; O2SAT 91
[2021-08-05 16:26] LABS: Bedside Glucose 106 mg/dL (74-106)
[2021-08-05] MEDS: Senna/Docusate Sodium 1 Tablet PO (17:44)
[2021-08-05] MEDS: Tamsulosin HCl 0.4 MG Capsule PO (17:44)
[2021-08-05 17:45] VITALS: BP 130/53; PULSE 59
[2021-08-05 21:26] LABS: Bedside Glucose 213 mg/dL (74-106)
[2021-08-05] MEDS: MELATONIN 10 MG TABLET PO (21:28)
[2021-08-05] MEDS: Atorvastatin Calcium 20 MG Tablet PO (21:28)
[2021-08-05 21:40] VITALS: RESP 16; O2SAT 93
[2021-08-06 06:14] VITALS: BP 141/54; PULSE 61
[2021-08-06 06:16] VITALS: PULSE 61
[2021-08-06] MEDS: Metoprolol(XL)Succ 25 MG Tablet PO ×2 (06:16→17:13)
[2021-08-06] MEDS: Clobetasol Propionate 0.05% Cream 1 APPLIC TOPICAL ×2 (06:16→17:11)
[2021-08-06] MEDS: Senna/Docusate Sodium 1 Tablet PO (06:16)
[2021-08-06] MEDS: Enoxaparin 30 MG/0.3 ML Syringe SC (06:24)
[2021-08-06 06:36] LABS: Bedside Glucose 131 mg/dL (74-106)
[2021-08-06] MEDS: traMADol 50 MG Tablet PO (09:06)
[2021-08-06] MEDS: Acetaminophen 500 MG Tablet 1000 MG PO ×2 (09:07→21:38)
[2021-08-06] MEDS: amLODIPine 10 MG Tablet PO (09:07)
[2021-08-06] MEDS: Citalopram 20 MG Tablet PO (09:07)
[2021-08-06] MEDS: Isosorbide Mononitrate 30 MG Tablet 15 MG PO (09:08)
[2021-08-06] MEDS: Ascorbic Acid 500 MG Tablet PO (09:08)
[2021-08-06] MEDS: Pantoprazole Sodium 40 MG Tablet PO (09:08)
[2021-08-06] MEDS: Calcium Carb/Vitamin D 1 TABLET Tablet PO (09:08)
[2021-08-06] MEDS: Cholecalciferol (VIT D3) 25 MCG TABLET (1,000 UNITS) PO (09:08)
[2021-08-06] MEDS: Multivitamins,Therapeutic Tablet 1 TABLET PO (09:08)
[2021-08-06] MEDS: Magnesium Chloride 64 MG Delay Rel.Tablet 128 MG PO (09:09)
[2021-08-06] MEDS: Aspirin E.C. 81 MG Tablet PO (09:09)
[2021-08-06] MEDS: Leflunomide 10 MG TABLET PO (09:09)
[2021-08-06] MEDS: Losartan Potassium 50 MG Tablet PO (09:09)
[2021-08-06] MEDS: Insulin Lispro 100 UNIT/ML INSULN.PEN 10 UNIT SC ×3 (09:11→17:16)
[2021-08-06 11:31] LABS: Bedside Glucose 184 mg/dL (74-106)
[2021-08-06 16:16] LABS: Bedside Glucose 145 mg/dL (74-106)
[2021-08-06 17:04] VITALS: BP 140/50; PULSE 61; RESP 16; TEMP 36.5; O2SAT 95
[2021-08-06 17:13] VITALS: PULSE 61
[2021-08-06] MEDS: Tamsulosin HCl 0.4 MG Capsule PO (17:14)
[2021-08-06] MEDS: Menthol/Lanolin/Calamine/Znox 113 GM Tube 1 APPLIC TOPICAL (17:15)
[2021-08-06 21:40] LABS: Bedside Glucose 173 mg/dL (74-106)
[2021-08-06] MEDS: MELATONIN 10 MG TABLET PO (21:40)
[2021-08-06] MEDS: Atorvastatin Calcium 20 MG Tablet PO (21:40)
[2021-08-06 21:48] VITALS: PULSE 73; RESP 16; O2SAT 95
[2021-08-07] VITALS (7 sets, daily range): BP systolic 110–168; BP diastolic 45–68; PULSE 50–62; RESP 16–18; TEMP 36.4; O2SAT 94
[2021-08-07] MEDS: Enoxaparin 30 MG/0.3 ML Syringe SC (04:51)
[2021-08-07] MEDS: Clobetasol Propionate 0.05% Cream 1 APPLIC TOPICAL ×2 (04:52→21:22)
[2021-08-07 06:31] LABS: Bedside Glucose 90 mg/dL (74-106)
[2021-08-07] MEDS: Metoprolol(XL)Succ 25 MG Tablet PO ×2 (06:31→17:45)
[2021-08-07] MEDS: Insulin Lispro 100 UNIT/ML INSULN.PEN 10 UNIT SC ×3 (08:50→18:18)
[2021-08-07] MEDS: Ascorbic Acid 500 MG Tablet PO (08:53)
[2021-08-07] MEDS: Isosorbide Mononitrate 30 MG Tablet 15 MG PO (08:53)
[2021-08-07] MEDS: Calcium Carb/Vitamin D 1 TABLET Tablet PO (08:53)
[2021-08-07] MEDS: Aspirin E.C. 81 MG Tablet PO (08:54)
[2021-08-07] MEDS: Cholecalciferol (VIT D3) 25 MCG TABLET (1,000 UNITS) PO (08:54)
[2021-08-07] MEDS: Magnesium Chloride 64 MG Delay Rel.Tablet 128 MG PO (08:54)
[2021-08-07] MEDS: Citalopram 20 MG Tablet PO (08:54)
[2021-08-07] MEDS: Acetaminophen 500 MG Tablet 1000 MG PO (08:55)
[2021-08-07] MEDS: amLODIPine 10 MG Tablet PO (08:55)
[2021-08-07] MEDS: Pantoprazole Sodium 40 MG Tablet PO (08:55)
[2021-08-07] MEDS: Multivitamins,Therapeutic Tablet 1 TABLET PO (08:56)
[2021-08-07] MEDS: Losartan Potassium 50 MG Tablet PO (08:57)
[2021-08-07] MEDS: Leflunomide 10 MG TABLET PO (08:57)
[2021-08-07] MEDS: traMADol 50 MG Tablet PO (09:00)
[2021-08-07 10:51] LABS: Bedside Glucose 244 mg/dL (74-106)
--- NOTE | 2021-08-07 15:07 | NURSING ---
transit authority police officer left message for DR Arias regarding pt only taking 15 units of Lantus at HS instead of her 30 units ordered and blood sugar [address] arias updated, new order to decrease lantus to 10units at HS.
[2021-08-07 16:01] LABS: Bedside Glucose 106 mg/dL (74-106)
[2021-08-07] MEDS: Tamsulosin HCl 0.4 MG Capsule PO (17:27)
[2021-08-07 21:21] LABS: Bedside Glucose 123 mg/dL (74-106)
[2021-08-07] MEDS: MELATONIN 10 MG TABLET PO (21:25)
[2021-08-07] MEDS: Atorvastatin Calcium 20 MG Tablet PO (21:26)
[2021-08-08] MEDS: Enoxaparin 30 MG/0.3 ML Syringe SC (05:06)
[2021-08-08 05:07] VITALS: BP 143/60; PULSE 64
[2021-08-08] MEDS: Metoprolol(XL)Succ 25 MG Tablet PO ×2 (05:07→17:40)
[2021-08-08] MEDS: Clobetasol Propionate 0.05% Cream 1 APPLIC TOPICAL (05:08)
[2021-08-08 06:26] LABS: Bedside Glucose 170 mg/dL (74-106)
[2021-08-08] MEDS: Insulin Lispro 100 UNIT/ML INSULN.PEN 10 UNIT SC ×3 (08:53→17:41)
[2021-08-08] MEDS: traMADol 50 MG Tablet PO (08:59)
[2021-08-08] MEDS: Acetaminophen 500 MG Tablet 1000 MG PO ×2 (08:59→22:12)
[2021-08-08] MEDS: Isosorbide Mononitrate 30 MG Tablet 15 MG PO (09:02)
[2021-08-08] MEDS: Cholecalciferol (VIT D3) 25 MCG TABLET (1,000 UNITS) PO (09:03)
[2021-08-08] MEDS: Aspirin E.C. 81 MG Tablet PO (09:03)
[2021-08-08] MEDS: Magnesium Chloride 64 MG Delay Rel.Tablet 128 MG PO (09:03)
[2021-08-08] MEDS: amLODIPine 10 MG Tablet PO (09:03)
[2021-08-08] MEDS: Ascorbic Acid 500 MG Tablet PO (09:04)
[2021-08-08] MEDS: Calcium Carb/Vitamin D 1 TABLET Tablet PO (09:04)
[2021-08-08] MEDS: Citalopram 20 MG Tablet PO (09:05)
[2021-08-08] MEDS: Leflunomide 10 MG TABLET PO (09:06)
[2021-08-08] MEDS: Multivitamins,Therapeutic Tablet 1 TABLET PO (09:07)
[2021-08-08] MEDS: Pantoprazole Sodium 40 MG Tablet PO (09:08)
[2021-08-08] MEDS: Losartan Potassium 50 MG Tablet PO (09:08)
[2021-08-08 09:19] VITALS: BP 148/52; PULSE 57
[2021-08-08 11:50] LABS: Bedside Glucose 119 mg/dL (74-106)
[2021-08-08 15:44] VITALS: BP 110/46; PULSE 55; RESP 18; TEMP 36.4; O2SAT 94
[2021-08-08 16:16] LABS: Bedside Glucose 123 mg/dL (74-106)
[2021-08-08] MEDS: Tamsulosin HCl 0.4 MG Capsule PO (17:37)
[2021-08-08 17:40] VITALS: BP 128/56; PULSE 59
[2021-08-08 17:43] VITALS: BP 128/56; PULSE 59
[2021-08-08 21:41] LABS: Bedside Glucose 157 mg/dL (74-106)
[2021-08-08] MEDS: Atorvastatin Calcium 20 MG Tablet PO (22:12)
[2021-08-08] MEDS: MELATONIN 10 MG TABLET PO (22:12)
[2021-08-09] MEDS: Enoxaparin 30 MG/0.3 ML Syringe SC (05:54)
[2021-08-09 05:56] VITALS: BP 148/59; PULSE 57
[2021-08-09] MEDS: Pantoprazole Sodium 40 MG Tablet PO (05:56)
[2021-08-09] MEDS: Clobetasol Propionate 0.05% Cream 1 APPLIC TOPICAL ×2 (05:59→17:11)
[2021-08-09 06:16] LABS: Bedside Glucose 152 mg/dL (74-106)
[2021-08-09] MEDS: traMADol 50 MG Tablet PO (08:39)
[2021-08-09] MEDS: Citalopram 20 MG Tablet PO (08:40)
[2021-08-09] MEDS: Ascorbic Acid 500 MG Tablet PO (08:40)
[2021-08-09] MEDS: Calcium Carb/Vitamin D 1 TABLET Tablet PO (08:41)
[2021-08-09] MEDS: Magnesium Chloride 64 MG Delay Rel.Tablet 128 MG PO (08:41)
[2021-08-09] MEDS: Multivitamins,Therapeutic Tablet 1 TABLET PO (08:41)
[2021-08-09] MEDS: Cholecalciferol (VIT D3) 25 MCG TABLET (1,000 UNITS) PO (08:42)
[2021-08-09] MEDS: Acetaminophen 500 MG Tablet 1000 MG PO ×2 (08:42→22:19)
[2021-08-09] MEDS: Aspirin E.C. 81 MG Tablet PO (08:42)
[2021-08-09] MEDS: Leflunomide 10 MG TABLET PO (08:43)
[2021-08-09] MEDS: Insulin Lispro 100 UNIT/ML INSULN.PEN 10 UNIT SC ×2 (08:44→11:59)
[2021-08-09] MEDS: Losartan Potassium 50 MG Tablet PO (08:44)
[2021-08-09] MEDS: amLODIPine 10 MG Tablet PO (08:44)
[2021-08-09] MEDS: Isosorbide Mononitrate 30 MG Tablet 15 MG PO (08:45)
[2021-08-09] MEDS: Menthol/Lanolin/Calamine/Znox 113 GM Tube 1 APPLIC TOPICAL ×2 (08:46→17:09)
[2021-08-09 10:00] VITALS: PULSE 79; RESP 16; O2SAT 95
[2021-08-09 11:36] LABS: Bedside Glucose 141 mg/dL (74-106)
--- NOTE | 2021-08-09 14:00 | CASEMGMT ---
Social Work Received call from dtr stating pt had been tearful during her visits over the weekend. She expressed pt being overwhelmed or unsure about transition to AL and still wanting to live at home. Dtr inquired about Dr. Arias increasing antidepressant. Dtr also wanted to share some events with staff that happened over the weekend. Offered for director to contact dtr; dtr appreciative. Referred to director for follow up. Offered for this worker to follow up with pt on transition to AL and emotions. Dtr agreed and appreciative. Met with pt. Inquired about how things were going. Explored her feelings toward transition to AL. Validated feelings of uncertainty in all aspects. Assisted in reframing pt's mindset. Focused on positives of transfer. Provided comfort in knowing all ADLs/IADLs will be taken care of, peace of mind from family, can reinstitute family visits that does not revolve around ensuring pt is cared for, like how it was at home prior. Pt stated she does have some friends in [facility] and looking forward to seeing them more frequently. Explained this only has to be temporary and can continue to be temporary, month by month. Pt agreed and expressed less anxiety after conversation. Pt did agree for Dr. Arias to potentially increase antidepressant. SW offered ongoing support and assistance. Left message for nursing to notify Dr. Arias of medication request. STEPHANIE MoresW
[2021-08-09 16:11] VITALS: PULSE 53; RESP 16; TEMP 36.2; O2SAT 97
[2021-08-09 16:41] LABS: Bedside Glucose 92 mg/dL (74-106)
[2021-08-09] MEDS: Tamsulosin HCl 0.4 MG Capsule PO (17:09)
[2021-08-09 17:14] VITALS: BP 78/50
--- NOTE | 2021-08-09 18:00 | NURSING ---
Received call from Rafael in pharmacy about Celexa 30mg that Dr. Arias ordered, notified Dr. Arias of pharmacist concern, Dr. Arias stated he wants to keep the order for 30mg daily. Order repeated back. Rafael in pharmacy notified.
--- NOTE | 2021-08-09 19:22 | PN.TCU_ITS ---
Subjective Subjective Resident seen, examined for regulatory visit. We discussed her depression issues, but she is already on Celexa 20mg daily, we also talked about her medications, she is overmedicated, will trim back her medications to only essential medications. She is also hypotensive, will give IV fluids. Objective Data Objective Data Vital Signs: Vital Signs Temp Pulse Resp BP Pulse Ox 97.2 F L 53 L 16 78/50 L 97 08/09/21 16:11 08/09/21 16:11 08/09/21 16:11 08/09/21 17:14 08/09/21 16:11 Oxygen Delivery Method Room Air Weight: 48.58 kg Body Mass Index (BMI) 23.2 Intake & Output: Intake and Output for Last 24 Hours 08/07/21 08/08/21 08/09/21 23:59 23:59 23:59 Intake Total 840 / 840 720 / 720 Output Total 500 / 500 1150 / 1150 Balance 840 / 840 220 / 220 -1150 / -1150 Lab / Micro Data Result Diagrams: 08/05/21 05:10 08/05/21 05:10 Labs: Laboratory Results - last 24 hr 08/08/21 21:28: POC Glucose 157 H 08/09/21 05:06: POC Glucose 152 H 08/09/21 11:33: POC Glucose 141 H 08/09/21 16:34: POC Glucose 92 Micro: Microbiology 08/05/21 Unknown Nasal Secretion SARS-CoV-2 Antigen (Rapid) - Final 07/29/21 12:03 Nasal Secretion SARS-CoV-2 Antigen (Rapid) - Final 07/21/21 19:45 Urine Catheter - Catheter Urine Culture - Final Presumptive E. coli 07/15/21 18:47 Urine Catheter - Catheter Urine Culture - Final Culture exhibits no growth. Physical Exam Const alert General Appearance: cooperative HEENT normocephalic Eyes PERRL and EOMs intact bilaterally Neck supple, no JVD and no carotid bruits Resp normal respiratory effort, normal air movement and clear to auscultation bilaterally Cardio regular rate and regular rhythm GI normal to inspection, nondistended, normoactive bowel sounds, non-tender and non-distended Extremity normal capillary refill General Extremity: Negative for edema Skin no rashes or lesions noted General Skin Exam: no breakdown Psych affect normal Appearance: appropriate Assessment & Plan Assessment/Plan (1) Debility: (2) Syncope: (3) Fall: (4) Fracture of left pelvis: (5) Coronary artery disease: (6) Hypertension: (7) Diabetes mellitus: (8) Hyperlipidemia: (9) Left rotator cuff tear: (10) Gastroesophageal reflux disease: (11) Depression: (12) Osteoarthritis: (13) Vitamin D deficiency: (14) Allergic rhinitis: PLAN: 85 year old female with below past medical history hospitalized for fall, syncope, complicated by left pelvis fracture, admitted to TCU with debility, here for rehabilitation, strengthening, prior to discharge home alone. * Debility - PT/OT. * Pain - Tylenol 1000mg q6h prn pain, Tylenol 1000mg 0900, Tramadol 50mg q6h prn pain, Tramadol 50mg 0900. * Hypotension - Normal Saline 1 liter IV bolus. * Hypertension - Metoprolol succinate 12.5mg bid, Losartan 50mg daily. * Hyperlipidemia - Atorvastatin 20mg qhs. * Coronary artery disease - Metoprolol succinate 25mg bid, Losartan 50mg daily, Imdur 15mg daily, Aspirin 81mg daily. * Depression - Citalopram 20mg daily, stable chronic group home use, GDR not recommended. * Diabetes Mellitus II - Hypoglycemic, stop all insulin, monitor blood sugar.. * GERD - Pantoprazole 40mg daily.. * Insomnia - Melatonin 10mg qhs. * Skin irritation - Calmoseptine topical bid. Capacity Capacity Assessment Tool Can the patient make a choice & communicate that choice?: Yes Can the patient understand benefits, risks and alternatives?: Yes Can the patient make a logical, rational choice?: Yes Is the choice the patient makes consistent w/ their values?: Yes Is there an impending, emergent risk to the patient?: No Does the patient have an Advance Directive?: Yes Is there a Surrogate Available?: Yes i.e. HCPOA: Yes i.e. close relative (spouse, child, parent, sibling)?: Yes
[2021-08-09] MEDS: Atorvastatin Calcium 20 MG Tablet PO (21:40)
[2021-08-09] MEDS: MELATONIN 10 MG TABLET PO (21:40)
[2021-08-09 21:41] LABS: Bedside Glucose 272 mg/dL (74-106)
[2021-08-09 21:45] VITALS: BP 114/44; PULSE 59
[2021-08-09] MEDS: 0.9% Normal Saline 1,000 ML 999 ML IV (21:58)
[2021-08-09 23:15] VITALS: BP 124/49; PULSE 70
[2021-08-10 06:16] LABS: Bedside Glucose 160 mg/dL (74-106)
[2021-08-10 06:27] VITALS: BP 135/64; PULSE 77
[2021-08-10] MEDS: Metoprolol(XL)Succ 25 MG Tablet PO ×2 (06:27→17:34)
[2021-08-10] MEDS: Pantoprazole Sodium 40 MG Tablet PO (09:09)
[2021-08-10] MEDS: Acetaminophen 500 MG Tablet 1000 MG PO ×2 (09:10→19:35)
[2021-08-10] MEDS: Citalopram 20 MG Tablet PO (09:10)
[2021-08-10] MEDS: Isosorbide Mononitrate 30 MG Tablet 15 MG PO (09:11)
[2021-08-10] MEDS: Aspirin E.C. 81 MG Tablet PO (09:11)
[2021-08-10] MEDS: Losartan Potassium 50 MG Tablet PO (09:11)
[2021-08-10] MEDS: traMADol 50 MG Tablet PO ×2 (09:17→19:39)
[2021-08-10 09:18] VITALS: BP 145/55; PULSE 82
[2021-08-10 11:16] LABS: Bedside Glucose 306 mg/dL (74-106)
[2021-08-10 13:58] VITALS: BP 114/47; PULSE 60; RESP 16; TEMP 36.2; O2SAT 96
--- NOTE | 2021-08-10 15:35 | CASEMGMT ---
Addendum entered by Cari Moreau 08/11/21 15:49: Spoke with dtr to confirm DC date for 08/16. Dtr requesting hospital bed for pt and was looking at [facility]. Explained since pt requires HOB elevated at 30 degrees, trial of wedges and pillows were unsuccessful, pt has qualifying dx, insurance could cover hospital bed at 80%. Explained it is semi-electric or [facility] is full electric but pt will pay out of pocket. Dtr wants pt to make decision. Offered to speak with pt for decision. Dtr expressed appreciation for all of this worker's assistance. Dtr began crying - provided support - dtr expressed her son's GF unexpectedly last night. Dtr and flew to [place] to be with son. SW expressed condolences. Provided supportive listening. 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 Encouraged to take care of herself - offered she cannot care for others if her glass isn't full. Explained hopefully once pt is placed, that will offer peace of mind for dtr and pt and that will allow the time for dtr to care for herself. Dtr expressed great appreciation for compassion and support. SW will coordinate phone calls for hospital bed decision and DC paperwork to [facility]. Spoke with pt. Inquired about feelings with recent loss. Pt is stable, but feels for her dtr and how much she has on her plate. Pt looking forward to transition to [facility] to also hope it will give dtr more peace of mind. Explained above about hospital bed differences and cost. Pt feels semi electric will work well and would like that option. Pt thanked this worker for assistance and support. Referral made to [facility] for hospital bed. Contacted [facility] to cancel order. Updated Madison at [facility] for plan. They will eval for PT/OT. Family to transport pt. Plan: DC to [facility] 08/16, PT/OT, hospital bed Original Note: Social Work Received call from Madison at [facility]. She stated the [place] apartment should be ready end of this week. 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 Madison said she will call dtr and confirm a move in date. SW to follow for DC date. Cari Moreau, FLOUR MIXER HELPER TOWER WATCHMAN
[2021-08-10 16:16] LABS: Bedside Glucose 234 mg/dL (74-106)
[2021-08-10 17:34] VITALS: BP 158/69; PULSE 63
[2021-08-10 19:40] VITALS: PULSE 65; RESP 16; O2SAT 97
[2021-08-10] MEDS: MELATONIN 10 MG TABLET PO (19:58)
[2021-08-10] MEDS: Atorvastatin Calcium 20 MG Tablet PO (19:58)
[2021-08-10 21:56] LABS: Bedside Glucose 326 mg/dL (74-106)
--- NOTE | 2021-08-10 22:01 | NURSING ---
Blood sugar elevated tonight, notified Dr. Arias, order to restart lantus at 15units QHS with first dose now.
[2021-08-10] MEDS: Insulin Glargine-YFGN 100 UNIT/ML Pen 15 UNIT SC (22:26)
[2021-08-11 05:47] VITALS: BP 120/72; PULSE 61
[2021-08-11] MEDS: Metoprolol(XL)Succ 25 MG Tablet PO ×2 (05:47→16:45)
[2021-08-11 06:26] LABS: Bedside Glucose 220 mg/dL (74-106)
[2021-08-11] MEDS: Citalopram 20 MG Tablet PO (08:13)
[2021-08-11] MEDS: Losartan Potassium 50 MG Tablet PO (08:13)
[2021-08-11] MEDS: Isosorbide Mononitrate 30 MG Tablet 15 MG PO (08:13)
[2021-08-11] MEDS: Aspirin E.C. 81 MG Tablet PO (08:13)
[2021-08-11] MEDS: Pantoprazole Sodium 40 MG Tablet PO (08:14)
[2021-08-11] MEDS: traMADol 50 MG Tablet PO (09:15)
[2021-08-11 11:12] LABS: Bedside Glucose 449 mg/dL (74-106)
[2021-08-11] MEDS: Insulin Lispro 100 UNIT/ML INSULN.PEN 10 UNIT SC (11:56)
--- NOTE | 2021-08-11 12:06 | NURSING ---
Dr. Arias paged and updated on pt's Blood sugar of 449. New order for 1x Dose 10units of Humalog and increase Lantus to 30 units QHS. Orders read back. Will continue to monitor.
[2021-08-11 15:42] VITALS: BP 131/58; PULSE 61; RESP 18; TEMP 37.1; O2SAT 96
[2021-08-11 16:11] LABS: Bedside Glucose 284 mg/dL (74-106)
[2021-08-11 16:45] VITALS: BP 131/58; PULSE 61
[2021-08-11] MEDS: Menthol/Lanolin/Calamine/Znox 113 GM Tube 1 APPLIC TOPICAL (16:46)
--- NOTE | 2021-08-11 20:10 | DS.PCM_ITS ---
Providers Date of Admission: 07/14/21 Primary Care Physician: Dr. Zulma Corral MD Consultations 08/02/21 07:48 Consult: Podiatry Routine Consulting Provider: Kareem Child Reason for Consult: toe nail EMERGENT Consult: No MD Notified: Yes Date Notified: 08/02/21 Time Notified: 11:47 Method of Notification: Verbal Reason For Visit: SYNCOPE Diagnosis Discharge Diagnosis (1) Debility: Status: Acute Code(s): R53.81 - Other malaise (2) Syncope: Status: Acute Code(s): R55 - Syncope and collapse (3) Fall: Status: Acute Code(s): W19.XXXA - Unspecified fall, initial encounter (4) Fracture of left pelvis: Status: Acute Code(s): S32.9XXA - Fracture of unspecified parts of lumbosacral spine and pelvis, initial encounter for closed fracture (5) Coronary artery disease: Status: Acute Code(s): I25.10 - Atherosclerotic heart disease of [place] coronary artery without angina pectoris (6) Hypertension: Status: Chronic Code(s): I10 - Essential (primary) hypertension (7) Diabetes mellitus: Status: Acute Code(s): E11.9 - Type 2 diabetes mellitus without complications (8) Hyperlipidemia: Status: Acute Code(s): E78.5 - Hyperlipidemia, unspecified (9) Left rotator cuff tear: Status: Acute Code(s): M75.102 - Unspecified rotator cuff tear or rupture of left shoulder, not specified as traumatic (10) Gastroesophageal reflux disease: Status: Acute Code(s): K21.9 - Gastro-esophageal reflux disease without esophagitis (11) Depression: Status: Acute Code(s): F32.A - Depression, unspecified (12) Osteoarthritis: Status: Acute Code(s): M19.90 - Unspecified osteoarthritis, unspecified site (13) Vitamin D deficiency: Status: Acute Code(s): E55.9 - Vitamin D deficiency, unspecified (14) Allergic rhinitis: Status: Acute Code(s): J30.9 - Allergic rhinitis, unspecified Medications at Discharge Home Medications pantoprazole 40 mg tablet,delayed release 40 mg PO DAILY 05/30/17 citalopram 20 mg PO DAILY 04/28/20 isosorbide mononitrate 30 mg tablet,extended release 24 hr 15 mg PO DAILY #45 tab 06/08/20 aspirin 81 mg tablet,delayed release 81 mg PO DAILY 06/17/20 insulin detemir U-100 10 unit SQ QHS 07/13/21 losartan 50 mg PO DAILY 07/13/21 acetaminophen 1,000 mg PO Q6H PRN PRN #0 tab 08/11/21 atorvastatin 20 mg PO QHS 30 Days #30 tab 08/11/21 insulin aspart U-100 10 unit SC TID #0 ml 08/11/21 metoprolol succinate 25 mg PO BID 30 Days #60 tab 08/11/21 tramadol 50 mg PO Q6H PRN PRN 7 Days #28 tab 08/11/21 Hospital Course Operations None Procedures None Summary of Care Provided Minutes Spent on Discharge: 35 Hospital Course: 85 year old female with below past medical history [facility], syncope, complicated by left pelvis fracture, admitted to TCU with debility, here for rehabilitation, strengthening, prior to discharge home alone. Discharge to [facility] 08/16/2021, PT/OT, Hospital Bed. Physical Exam Const alert General Appearance: cooperative HEENT normocephalic Eyes PERRL and EOMs intact bilaterally Neck supple, no JVD and no carotid bruits Resp normal respiratory effort, normal air movement and clear to auscultation bilaterally Cardio regular rate and regular rhythm GI normal to inspection, nondistended, normoactive bowel sounds, non-tender and non-distended Extremity normal capillary refill General Extremity: Negative for edema Skin no rashes or lesions noted General Skin Exam: no breakdown Psych affect normal Appearance: appropriate Weight / BMI Weight Weight: 48.943 kg Body Mass Index (BMI) 23.2 ABG / Lab / Microbiology Data Result Diagrams: 08/05/21 05:10 08/05/21 05:10 Laboratory: Laboratory Results - last 24 hr 08/10/21 21:48: POC Glucose 326 H 08/11/21 06:16: POC Glucose 220 H 08/11/21 10:58: POC Glucose 449 H 08/11/21 15:58: POC Glucose 284 H Microbiology: Microbiology 08/05/21 Unknown Nasal Secretion SARS-CoV-2 Antigen (Rapid) - Final 07/29/21 12:03 Nasal Secretion SARS-CoV-2 Antigen (Rapid) - Final 07/21/21 19:45 Urine Catheter - Catheter Urine Culture - Final Presumptive E. coli 07/15/21 18:47 Urine Catheter - Catheter Urine Culture - Final Culture exhibits no growth. D/C Instructions Discharge Diet: No restrictions Discharge Activity: May Shower and Use Walker Weight Bearing Status: Weight bearing as tolerated Call your doctor if you observe: Fever of 101 or Higher, Inability to urinate, Inability to have a bowel movement, Shortness of breath, Dizziness, Fainting spells, Swelling in the ankles, Chest pain and Uncontrolled pain Additional Instructions: Discharge to [facility] 08/16/2021, PT/OT, Hospital Bed. Please Follow Up With: Everardo Saenz DO When: As scheduled. Meaningful Use Info Meaningful Use Diagnoses (Choose all that apply): None applicable Discharge Plan Admission Admit Date/Time: 07/14/21 16:28 Primary Reason for Your Visit: Debility. Attending Provider: Omid Arias Chi Primary Care Provider: Zulma Corral Consulting Providers: Kareem Child Instructions Additional Instructions / Restrictions: Discharge to [facility] 08/16/2021, PT/OT, Hospital Bed. Discharge Orders/Prescriptions Prescriptions: New atorvastatin 20 mg Tablet 20 mg PO QHS 30 Days Qty: 30 RF: 0 tramadol 50 mg Tablet 50 mg PO Q6H PRN PRN (Reason: Pain Score 4-10) 7 Days Qty: 28 RF: 0 acetaminophen 500 mg Tablet 1,000 mg PO Q6H PRN PRN (Reason: Pain Score 1-3) Qty: 0 RF: 0 metoprolol succinate 25 mg Tablet Extended Release 24 Hr 25 mg PO BID 30 Days Qty: 60 RF: 0 Continued pantoprazole 40 mg tablet,delayed release (DR/EC) 40 mg PO DAILY RF: 0 aspirin 81 mg tablet,delayed release (DR/EC) 81 mg PO DAILY RF: 0 citalopram 20 MG tablet 20 mg PO DAILY RF: 0 insulin detemir U-100 100 UNIT/ML insulin pen 10 unit SQ QHS RF: 0 losartan 50 mg tablet 50 mg PO DAILY RF: 0 isosorbide mononitrate 30 mg tablet extended release 24 hr 15 mg PO DAILY Qty: 45 RF: 3 Changed insulin aspart U-100 100 UNITS/ML insulin pen 10 unit SC TID Qty: 0 RF: 0 Discontinued multivitamin tablet 1 tab PO DAILY RF: 0 metoprolol succinate 25 mg tablet extended release 24 hr 12.5 mg PO BID RF: 0 leflunomide 10 MG tablet 10 mg PO DAILY RF: 0 Hold Instructions: Resume on 05/16/21. tramadol 50 MG tablet 50 mg PO BID PRN PRN (Reason: Pain 1-10 Or Fever) RF: 0 simvastatin 40 mg tablet 40 mg PO QHS RF: 0 albuterol sulfate 1 INHALER inhaler 1 - 2 puff INHALATION Q6H PRN PRN (Reason: Asthma) RF: 0 acetaminophen 500 mg Tablet 500 mg PO BID PRN (Reason: Pain) RF: 0 ascorbic acid (vitamin C) 500 mg Tablet 500 mg PO DAILY RF: 0 cranberry 1,000 mg Capsule 2,000 mg PO DAILY RF: 0 cholecalciferol (vitamin D3) 25 mcg (1,000 unit) Capsule 25 mcg PO DAILY RF: 0 calcium-vitamin D3-vitamin K 500-100-40 mg-unit-mcg Tablet,Chewable 1 tab PO DAILY RF: 0 Black Elderberry 1,000 mg PO/SL DAILY RF: 0 amlodipine 2.5 mg tablet 2.5 mg PO DAILY RF: 0 clobetasol 0.05 % Cream 1 applic TOPICAL BID RF: 0 fluticasone furoate 50 mcg/actuation Blister With Device 50 mcg INHALATION DAILY PRN (Reason: ALLERGIES) RF: 0 magnesium 200 mg tablet 400 mg PO TID RF: 0 Referrals / Follow Up: Everardo Saenz DO [STAFF PHYSICIAN] - Omid Arias Chi, MD [COURTESY STAFF PHYSICIAN] - Within 1 Week Disposition Disposition (needs filled in before D/C Order can be placed): Assisted Living
--- NOTE | 2021-08-11 20:17 | PCM.TXEXTCAR ---
Diet 07/19/21 17:29 Diet: Regular - General Food consistency:: Regular Liquid Consistency:: Regular/Thin Type of Dietary Supplement:: Glucerna Shake Is pt able to select menu?: Yes Diet Comments: 4 oz GS w/ breakfast & lunch, cut up meats, small portions Routine Orders/Code Status Code Status: [facility] Wound(s) coccyx: Wound Type: shearing Dressing Change: Mepilex (changed 3.22) RIGHT BUTTOCK: Wound Type: Pressure Injury Dressing Change: Mepilex (changed 3.22) Therapies Weight Bearing: Weight bearing as tolerated Extremity Affected:: Bilateral Lower Physical Therapy: Eval and Treat Occupational Therapy: Eval and Treat Problem/Diagnosis (1) Debility: Status: Acute (2) Syncope: Status: Acute (3) Fall: Status: Acute (4) Fracture of left pelvis: Status: Acute (5) Coronary artery disease: Status: Acute (6) Hypertension: Status: Chronic (7) Diabetes mellitus: Status: Acute (8) Hyperlipidemia: Status: Acute (9) Left rotator cuff tear: Status: Acute (10) Gastroesophageal reflux disease: Status: Acute (11) Depression: Status: Acute (12) Osteoarthritis: Status: Acute (13) Vitamin D deficiency: Status: Acute (14) Allergic rhinitis: Status: Acute Allergies/Procedures Done in Hospital Allergies metronidazole [From Flagyl] Allergy (Verified 07/13/21 18:00) PT UNSURE OF REACTION oxycodone HCl [From OxyContin] Allergy (Verified 07/13/21 18:00) hallucination lidocaine Adverse Reaction (Verified 07/13/21 18:01) Nausea Type of Care/Length of Stay Estimated LOS: More Than 30 Days Type of Care Needed: [facility]/Assisted Living Rehab Potential: Good Prognosis: Good Additional Orders/Day of Discharge Additional Orders: PT/OT Day of Discharge: 08/16/21 Dietary and Speech Recommendations Dietitian Recommendations/Changes: Will continue Regular diet per res request with small portions and meat cut up Will continue 4 oz glucerna shake w/ breakfast and lunch as per res routine at home and to help w/ skin integrity Follow Up Care Please Follow Up With: Everardo Saenz DO When: f/u in 2 weeks pubic rami fx Discharge Plan Admission Admit Date/Time: 07/14/21 16:28 Primary Reason for Your Visit: Debility. Attending Provider: Omid Arias Chi Primary Care Provider: Zulma Corral Consulting Providers: Kareem Child Instructions Additional Instructions / Restrictions: Discharge to [facility] 08/16/2021, PT/OT, Hospital Bed. Discharge Orders/Prescriptions Prescriptions: New atorvastatin 20 mg Tablet 20 mg PO QHS 30 Days Qty: 30 RF: 0 tramadol 50 mg Tablet 50 mg PO Q6H PRN PRN (Reason: Pain Score 4-10) 7 Days Qty: 28 RF: 0 acetaminophen 500 mg Tablet 1,000 mg PO Q6H PRN PRN (Reason: Pain Score 1-3) Qty: 0 RF: 0 metoprolol succinate 25 mg Tablet Extended Release 24 Hr 25 mg PO BID 30 Days Qty: 60 RF: 0 Continued pantoprazole 40 mg tablet,delayed release (DR/EC) 40 mg PO DAILY RF: 0 aspirin 81 mg tablet,delayed release (DR/EC) 81 mg PO DAILY RF: 0 citalopram 20 MG tablet 20 mg PO DAILY RF: 0 insulin detemir U-100 100 UNIT/ML insulin pen 10 unit SQ QHS RF: 0 losartan 50 mg tablet 50 mg PO DAILY RF: 0 isosorbide mononitrate 30 mg tablet extended release 24 hr 15 mg PO DAILY Qty: 45 RF: 3 Changed insulin aspart U-100 100 UNITS/ML insulin pen 10 unit SC TID Qty: 0 RF: 0 Discontinued multivitamin tablet 1 tab PO DAILY RF: 0 metoprolol succinate 25 mg tablet extended release 24 hr 12.5 mg PO BID RF: 0 leflunomide 10 MG tablet 10 mg PO DAILY RF: 0 Hold Instructions: Resume on 05/16/21. tramadol 50 MG tablet 50 mg PO BID PRN PRN (Reason: Pain 1-10 Or Fever) RF: 0 simvastatin 40 mg tablet 40 mg PO QHS RF: 0 albuterol sulfate 1 INHALER inhaler 1 - 2 puff INHALATION Q6H PRN PRN (Reason: Asthma) RF: 0 acetaminophen 500 mg Tablet 500 mg PO BID PRN (Reason: Pain) RF: 0 ascorbic acid (vitamin C) 500 mg Tablet 500 mg PO DAILY RF: 0 cranberry 1,000 mg Capsule 2,000 mg PO DAILY RF: 0 cholecalciferol (vitamin D3) 25 mcg (1,000 unit) Capsule 25 mcg PO DAILY RF: 0 calcium-vitamin D3-vitamin K 500-100-40 mg-unit-mcg Tablet,Chewable 1 tab PO DAILY RF: 0 Black Elderberry 1,000 mg PO/SL DAILY RF: 0 amlodipine 2.5 mg tablet 2.5 mg PO DAILY RF: 0 clobetasol 0.05 % Cream 1 applic TOPICAL BID RF: 0 fluticasone furoate 50 mcg/actuation Blister With Device 50 mcg INHALATION DAILY PRN (Reason: ALLERGIES) RF: 0 magnesium 200 mg tablet 400 mg PO TID RF: 0 Referrals / Follow Up: Everardo Saenz DO [STAFF PHYSICIAN] - Omid Arias Chi, MD [COURTESY STAFF PHYSICIAN] - Within 1 Week Disposition Disposition (needs filled in before D/C Order can be placed): Assisted Living
[2021-08-11] MEDS: MELATONIN 10 MG TABLET PO (21:48)
[2021-08-11] MEDS: Atorvastatin Calcium 20 MG Tablet PO (21:48)
[2021-08-11] MEDS: Insulin Glargine-YFGN 100 UNIT/ML Pen 10 UNIT SC (21:50)
[2021-08-11 21:56] LABS: Bedside Glucose 294 mg/dL (74-106)
[2021-08-12 05:50] LABS: Absolute Lymphocyte Count 2.21 X10^3/uL (0.83-4.51); Absolute Neutrophil Count 4.9 X10^3/uL (2.0-7.7); Basophil# 0.13 X10^3/uL; Basophil% 1.4 % (0-1); Eosinophil# 0.66 X10^3/uL; Eosinophils% 7.3 % (0-5); Hematocrit 34.4 % (37-47); Hemoglobin 11.4 g/dL (12.0-15.0); Lymphocyte # 2.21 X10^3/ul (0.83-4.51); Lymphocyte % 24.4 % (19-41); Mean Corp Hgb Conc 33.1 g/dL (32-36); Mean Corpuscular Hgb 29.5 pg (27.0-32.0); Mean Corpuscular Volume 89.1 fL (81-99); Mean Platelet Vol. 11.5 fl (6.2-12.0); Monocyte# 1.07 X10^3/uL; Monocyte% 11.8 % (0-10); NRBC Flagged by Analyzer 0 % (0-5); Neutrophil # 4.94 X10^3/uL (2.7-7.7); Neutrophil % 54.5 % (47-70); Platelet Count 234 K/mm3 (150-450); RBC Distribution Width CV 13.4 % (11.6-14.6); RBC Distribution Width SD 44.1 fl (35.1-43.9); Red Blood Count 3.86 M/mm3 (4.2-5.4); White Blood Count 9.1 K/mm3 (4.4-11.0)
[2021-08-12 06:12] LABS: Anion Gap 6 (5-15); BUN 33 mg/dL (7-18); BUN/Creat Ratio 38.1 RATIO (10-20); Calcium,Total 9.2 mg/dL (8.5-10.1); Chloride 103 mmol/L (98-107); Creatinine, Serum 0.87 mg/dL (0.55-1.02); EST Glomerular Filtration Rate 66 mL/min (>60); Est Glom Filt Rate - Afr Amer 80 mL/min (>60); Estimated Creatinine Clearance 35.86 ml/min; Glucose 159 mg/dL (74-106); Potassium 4.4 mmol/L (3.5-5.1); Sodium Level 135 mmol/L (136-145)
[2021-08-12 06:36] LABS: Bedside Glucose 146 mg/dL (74-106)
[2021-08-12 06:41] VITALS: BP 150/72; PULSE 60
[2021-08-12] MEDS: Metoprolol(XL)Succ 25 MG Tablet PO ×2 (06:41→17:51)
[2021-08-12] MEDS: Menthol/Lanolin/Calamine/Znox 113 GM Tube 1 APPLIC TOPICAL ×2 (06:41→17:49)
[2021-08-12] MEDS: Insulin Lispro 100 UNIT/ML INSULN.PEN 10 UNIT SC ×3 (08:47→17:49)
[2021-08-12] MEDS: Aspirin E.C. 81 MG Tablet PO (08:49)
[2021-08-12] MEDS: Citalopram 20 MG Tablet PO (08:49)
[2021-08-12] MEDS: Losartan Potassium 50 MG Tablet PO (08:49)
[2021-08-12] MEDS: Isosorbide Mononitrate 30 MG Tablet 15 MG PO (08:49)
[2021-08-12] MEDS: Acetaminophen 500 MG Tablet 1000 MG PO (08:50)
[2021-08-12] MEDS: Pantoprazole Sodium 40 MG Tablet PO (08:50)
[2021-08-12] MEDS: traMADol 50 MG Tablet PO (08:53)
[2021-08-12 08:57] VITALS: BP 128/72; PULSE 70
[2021-08-12 11:11] LABS: Bedside Glucose 130 mg/dL (74-106)
[2021-08-12] MEDS: 0.9% Saline Lock 10 ML Syringe IV (14:01)
[2021-08-12 14:41] VITALS: BP 109/38; PULSE 54; RESP 18; TEMP 36; O2SAT 89
[2021-08-12 16:11] LABS: Bedside Glucose 98 mg/dL (74-106)
[2021-08-12 17:51] VITALS: BP 163/67; PULSE 64
[2021-08-12 20:10] VITALS: O2SAT 93
[2021-08-12] MEDS: Atorvastatin Calcium 20 MG Tablet PO (21:44)
[2021-08-12] MEDS: Insulin Glargine-YFGN 100 UNIT/ML Pen 10 UNIT SC (21:44)
[2021-08-12] MEDS: MELATONIN 10 MG TABLET PO (21:44)
[2021-08-12 21:52] LABS: Bedside Glucose 149 mg/dL (74-106)
[2021-08-13 05:37] VITALS: BP 143/64; PULSE 60
[2021-08-13] MEDS: Metoprolol(XL)Succ 25 MG Tablet PO ×2 (05:37→17:30)
[2021-08-13] MEDS: Menthol/Lanolin/Calamine/Znox 113 GM Tube 1 APPLIC TOPICAL ×2 (05:38→17:32)
[2021-08-13 06:21] LABS: Bedside Glucose 223 mg/dL (74-106)
[2021-08-13] MEDS: Isosorbide Mononitrate 30 MG Tablet 15 MG PO (08:21)
[2021-08-13] MEDS: traMADol 50 MG Tablet PO (08:21)
[2021-08-13] MEDS: Pantoprazole Sodium 40 MG Tablet PO (08:22)
[2021-08-13] MEDS: Aspirin E.C. 81 MG Tablet PO (08:22)
[2021-08-13] MEDS: Losartan Potassium 50 MG Tablet PO (08:22)
[2021-08-13] MEDS: Insulin Lispro 100 UNIT/ML INSULN.PEN 10 UNIT SC ×3 (08:22→17:31)
[2021-08-13] MEDS: Acetaminophen 500 MG Tablet 1000 MG PO (08:22)
[2021-08-13] MEDS: Citalopram 20 MG Tablet PO (08:22)
[2021-08-13 10:50] LABS: Bedside Glucose 149 mg/dL (74-106)
[2021-08-13 13:47] VITALS: BP 117/64; PULSE 67; RESP 16; TEMP 36.3; O2SAT 98
[2021-08-13 16:41] LABS: Bedside Glucose 131 mg/dL (74-106)
[2021-08-13 17:30] VITALS: PULSE 67
[2021-08-13 21:31] LABS: Bedside Glucose 229 mg/dL (74-106)
[2021-08-13] MEDS: Insulin Glargine-YFGN 100 UNIT/ML Pen 10 UNIT SC (22:15)
[2021-08-13] MEDS: Atorvastatin Calcium 20 MG Tablet PO (22:16)
[2021-08-13] MEDS: MELATONIN 10 MG TABLET PO (22:16)
[2021-08-13] MEDS: 0.9% Saline Lock 10 ML Syringe IV (22:22)
[2021-08-13 22:28] VITALS: PULSE 75; RESP 16; O2SAT 98
[2021-08-14 06:18] VITALS: BP 165/75; PULSE 61
[2021-08-14] MEDS: Metoprolol(XL)Succ 25 MG Tablet PO ×2 (06:18→17:47)
[2021-08-14] MEDS: 0.9% Saline Lock 10 ML Syringe IV ×2 (06:20→13:11)
[2021-08-14] MEDS: Menthol/Lanolin/Calamine/Znox 113 GM Tube 1 APPLIC TOPICAL ×2 (06:22→17:46)
[2021-08-14 06:41] LABS: Bedside Glucose 234 mg/dL (74-106)
[2021-08-14] MEDS: Insulin Lispro 100 UNIT/ML INSULN.PEN 10 UNIT SC ×3 (08:49→17:43)
[2021-08-14] MEDS: traMADol 50 MG Tablet PO (08:51)
[2021-08-14] MEDS: Acetaminophen 500 MG Tablet 1000 MG PO ×2 (08:52→21:36)
[2021-08-14] MEDS: Citalopram 20 MG Tablet PO (08:53)
[2021-08-14] MEDS: Pantoprazole Sodium 40 MG Tablet PO (08:53)
[2021-08-14] MEDS: Losartan Potassium 50 MG Tablet PO (08:54)
[2021-08-14] MEDS: Aspirin E.C. 81 MG Tablet PO (08:54)
[2021-08-14] MEDS: Isosorbide Mononitrate 30 MG Tablet 15 MG PO (08:54)
[2021-08-14 11:26] LABS: Bedside Glucose 237 mg/dL (74-106)
[2021-08-14 16:11] LABS: Bedside Glucose 152 mg/dL (74-106)
[2021-08-14 17:47] VITALS: BP 165/60; PULSE 64
[2021-08-14 17:48] VITALS: BP 165/60; PULSE 64; RESP 16; TEMP 36.6; O2SAT 91
[2021-08-14 21:33] VITALS: PULSE 61; RESP 16; O2SAT 94
[2021-08-14] MEDS: MELATONIN 10 MG TABLET PO (21:37)
[2021-08-14] MEDS: Atorvastatin Calcium 20 MG Tablet PO (21:37)
[2021-08-14] MEDS: Insulin Glargine-YFGN 100 UNIT/ML Pen 10 UNIT SC (21:40)
[2021-08-15 06:43] VITALS: BP 154/58; PULSE 52
[2021-08-15 07:01] LABS: Bedside Glucose 248 mg/dL (74-106)
[2021-08-15] MEDS: Insulin Lispro 100 UNIT/ML INSULN.PEN 10 UNIT SC ×3 (08:57→17:58)
[2021-08-15 08:58] VITALS: BP 165/63; PULSE 55
[2021-08-15] MEDS: Aspirin E.C. 81 MG Tablet PO (08:58)
[2021-08-15] MEDS: Losartan Potassium 50 MG Tablet PO (08:58)
[2021-08-15] MEDS: Metoprolol(XL)Succ 25 MG Tablet PO ×2 (08:58→17:58)
[2021-08-15] MEDS: Isosorbide Mononitrate 30 MG Tablet 15 MG PO (08:58)
[2021-08-15] MEDS: Acetaminophen 500 MG Tablet 1000 MG PO (08:58)
[2021-08-15] MEDS: Pantoprazole Sodium 40 MG Tablet PO (08:59)
[2021-08-15] MEDS: Citalopram 20 MG Tablet PO (08:59)
[2021-08-15] MEDS: traMADol 50 MG Tablet PO (09:00)
[2021-08-15 11:16] LABS: Bedside Glucose 302 mg/dL (74-106)
[2021-08-15 16:00] VITALS: BP 101/44; PULSE 54; RESP 16; TEMP 36; O2SAT 92
[2021-08-15 16:10] LABS: Bedside Glucose 185 mg/dL (74-106)
[2021-08-15 17:58] VITALS: BP 169/68; PULSE 53
[2021-08-15 19:07] VITALS: BP 136/62
[2021-08-15] MEDS: 0.9% Saline Lock 10 ML Syringe IV (19:09)
[2021-08-15 21:05] LABS: Bedside Glucose 264 mg/dL (74-106)
[2021-08-15] MEDS: Menthol/Lanolin/Calamine/Znox 113 GM Tube 1 APPLIC TOPICAL (21:56)
[2021-08-15] MEDS: Atorvastatin Calcium 20 MG Tablet PO (21:57)
[2021-08-15] MEDS: Insulin Glargine-YFGN 100 UNIT/ML Pen 10 UNIT SC (21:58)
[2021-08-15] MEDS: MELATONIN 10 MG TABLET PO (21:58)
[2021-08-15 22:00] VITALS: PULSE 52; RESP 16; O2SAT 92
[2021-08-16] MEDS: Acetaminophen 500 MG Tablet 1000 MG PO ×2 (03:53→08:11)
[2021-08-16 06:28] VITALS: BP 171/64; PULSE 56
[2021-08-16 06:29] VITALS: PULSE 56
[2021-08-16] MEDS: Metoprolol(XL)Succ 25 MG Tablet PO (06:29)
[2021-08-16] MEDS: Menthol/Lanolin/Calamine/Znox 113 GM Tube 1 APPLIC TOPICAL (06:29)
[2021-08-16 06:46] LABS: Bedside Glucose 257 mg/dL (74-106)
[2021-08-16] MEDS: Insulin Lispro 100 UNIT/ML INSULN.PEN 10 UNIT SC ×2 (08:09→11:49)
[2021-08-16] MEDS: Citalopram 20 MG Tablet PO (08:11)
[2021-08-16] MEDS: Aspirin E.C. 81 MG Tablet PO (08:11)
[2021-08-16] MEDS: Pantoprazole Sodium 40 MG Tablet PO (08:11)
[2021-08-16] MEDS: Losartan Potassium 50 MG Tablet PO (08:12)
[2021-08-16] MEDS: Isosorbide Mononitrate 30 MG Tablet 15 MG PO (08:12)
[2021-08-16] MEDS: traMADol 50 MG Tablet PO (08:15)
[2021-08-16 08:20] VITALS: BP 190/60; PULSE 56
--- NOTE | 2021-08-16 09:58 | CASEMGMT ---
Social Work BIMS and PHQ-9 completed for MDS assessment. Re[place]ic[place] from dtr [place] [facility] [place] [facility] on Monday[facility] [facility]oke [place] rep and confirmed delivery this AM to [facility]. Updated dtr. dtr expressed appreciation for all assistance from this worker throughout stay.. Cari Moreau, [employer]
[2021-08-16 10:00] VITALS: PULSE 61; RESP 18; O2SAT 97
[2021-08-16 10:35] LABS: Bedside Glucose 243 mg/dL (74-106)
[2021-08-16 13:36] VITALS: BP 140/56; PULSE 62; RESP 18; TEMP 36.2; O2SAT 97
--- NOTE | 2021-08-16 13:46 | NURSING ---
Report called to [facility], spoke with Veda.
== END 2021-08-16 14:00 | disposition home or self-care (01) | DRG 561 ==
PROVIDERS: Admitting Provider Family Medicine Geriatric Medicine; PCP Internal Medicine; Visit Provider Family Medicine Geriatric Medicine
DX: S32.9XXD Fracture of unspecified parts of lumbosacral spine and pelvis, subsequent encounter for fracture with routine healing (principal); L89.152 Pressure ulcer of sacral region, stage 2; L89.312 Pressure ulcer of right buttock, stage 2; E11.9 Type 2 diabetes mellitus without complications; B35.1 Tinea unguium; E55.9 Vitamin D deficiency, unspecified; L89.322 Pressure ulcer of left buttock, stage 2; J44.9 Chronic obstructive pulmonary disease, unspecified; Z79.4 Long term (current) use of insulin; E78.5 Hyperlipidemia, unspecified; I25.10 Atherosclerotic heart disease of native coronary artery without angina pectoris; M19.90 Unspecified osteoarthritis, unspecified site; I10 Essential (primary) hypertension; K21.9 Gastro-esophageal reflux disease without esophagitis; W19.XXXD Unspecified fall, subsequent encounter; M75.102 Unspecified rotator cuff tear or rupture of left shoulder, not specified as traumatic; M79.674 Pain in right toe(s); M79.675 Pain in left toe(s); F32.A Depression, unspecified; Z79.82 Long term (current) use of aspirin; Z87.891 Personal history of nicotine dependence; Z79.899 Other long term (current) drug therapy; Z23 Encounter for immunization
CPT/HCPCS: 0064A; 36415; 80048; 81001; 82962; 83735; 85025; 87086; 87088; 87186; 87426; 87811; 91306; 92507; 92523; 97110; 97116; 97162; 97166; 97530; 97535; 97802; J7030; A4216

== ENCOUNTER 2021-08-18 20:00 | Outpatient (REF) | payer MEDICARE, OTHER, SELFPAY | END 2021-08-18 23:59 | disposition home or self-care (01) | LOC: OLS.WHLTSB 20:00 | PROVIDERS: PCP Internal Medicine; Referring Provider Family Medicine; Visit Provider Family Medicine | DX: R30.0 Dysuria (principal); R41.841 Cognitive communication deficit; M79.674 Pain in right toe(s); M79.675 Pain in left toe(s); B35.1 Tinea unguium; M19.90 Unspecified osteoarthritis, unspecified site; M75.102 Unspecified rotator cuff tear or rupture of left shoulder, not specified as traumatic | CPT/HCPCS: 87077; 87086; 87088; 87186 ==

== ENCOUNTER → 2021-08-27 | Outpatient (REF) | payer MEDICARE, OTHER, SELFPAY ==
[2021-08-27 07:01] LABS: Hematocrit 35.5 % (37-47); Hemoglobin 11.8 g/dL (12.0-15.0); Mean Corp Hgb Conc 33.2 g/dL (32-36); Mean Corpuscular Hgb 29.3 pg (27.0-32.0); Mean Corpuscular Volume 88.1 fL (81-99); Mean Platelet Vol. 11.8 fl (6.2-12.0); Platelet Count 265 K/mm3 (150-450); RBC Distribution Width CV 13.1 % (11.6-14.6); RBC Distribution Width SD 42.7 fl (35.1-43.9); Red Blood Count 4.03 M/mm3 (4.2-5.4); White Blood Count 7.4 K/mm3 (4.4-11.0)
[2021-08-27 07:16] LABS: Anion Gap 5 (5-15); BUN 30 mg/dL (7-18); Chloride 107 mmol/L (98-107); Cholesterol 136 mg/dL (200); Creatinine, Serum 0.81 mg/dL (0.55-1.02); EST Glomerular Filtration Rate 71 mL/min (>60); Est Glom Filt Rate - Afr Amer 86 mL/min (>60); Glucose 136 mg/dL (74-106); High Density Lipoprotein 41 mg/dL; Potassium 4.2 mmol/L (3.5-5.1); Sodium Level 139 mmol/L (136-145); Triglycerides 124 mg/dL; Very Low Density Lipoprotein 25 mg/dL (5-40)
[2021-08-27 09:00] LABS: Hemoglobin A1c 7.5 % (3.8-5.6)
== END | disposition home or self-care (01) ==
LOC: OLS.WHLTSB 05:00
PROVIDERS: PCP Internal Medicine; Visit Provider Family Medicine
DX: E78.5 Hyperlipidemia, unspecified (principal); E11.9 Type 2 diabetes mellitus without complications; R30.0 Dysuria; R41.841 Cognitive communication deficit; M79.674 Pain in right toe(s); M79.675 Pain in left toe(s); M19.90 Unspecified osteoarthritis, unspecified site; M75.102 Unspecified rotator cuff tear or rupture of left shoulder, not specified as traumatic
CPT/HCPCS: 36415; 80048; 80061; 83036; 85027

== ENCOUNTER → 2021-12-14 | Outpatient (REF) | payer MEDICARE, OTHER, SELFPAY ==
[2021-12-14 11:04] LABS: Hematocrit 41.2 % (37-47); Hemoglobin 13.9 g/dL (12.0-15.0); Mean Corp Hgb Conc 33.7 g/dL (32-36); Mean Corpuscular Hgb 30.2 pg (27.0-32.0); Mean Corpuscular Volume 89.4 fL (81-99); Mean Platelet Vol. 11.6 fl (6.2-12.0); Platelet Count 215 K/mm3 (150-450); RBC Distribution Width CV 13.1 % (11.6-14.6); RBC Distribution Width SD 42.8 fl (35.1-43.9); Red Blood Count 4.61 M/mm3 (4.2-5.4); White Blood Count 8.6 K/mm3 (4.4-11.0)
[2021-12-14 11:48] LABS: Anion Gap 7 (5-15); BUN 34 mg/dL (7-18); BUN/Creat Ratio 33.3 RATIO (10-20); Chloride 100 mmol/L (98-107); Creatinine, Serum 1.02 mg/dL (0.55-1.02); EST Glomerular Filtration Rate 54 mL/min (>60); Est Glom Filt Rate - Afr Amer 66 mL/min (>60); Glucose 171 mg/dL (74-106); Potassium 4.2 mmol/L (3.5-5.1); Sodium Level 134 mmol/L (136-145); Thyroid Stim Hormone (TSH) 1.97 uIU/mL (0.358-3.74)
== END | disposition home or self-care (01) ==
LOC: OLS.WHLTSB 04:00
PROVIDERS: PCP Internal Medicine; Visit Provider Family Medicine
DX: E11.9 Type 2 diabetes mellitus without complications (principal); R12 Heartburn; H04.123 Dry eye syndrome of bilateral lacrimal glands; M54.59 Other low back pain; R30.0 Dysuria; R41.841 Cognitive communication deficit; M79.674 Pain in right toe(s); M79.675 Pain in left toe(s); B35.1 Tinea unguium
CPT/HCPCS: 36415; 80048; 84443; 85027

== ENCOUNTER → 2021-12-21 | Outpatient (REF) | payer MEDICARE, OTHER, SELFPAY ==
[2021-12-21 07:59] LABS: Absolute Lymphocyte Count 1.93 X10^3/uL (0.83-4.51); Absolute Neutrophil Count 6.4 X10^3/uL (2.0-7.7); Basophil# 0.08 X10^3/uL; Basophil% 0.8 % (0-1); Eosinophils% 4.1 % (0-5); Hematocrit 40.9 % (37-47); Hemoglobin 14.1 g/dL (12.0-15.0); Lymphocyte # 1.93 X10^3/ul (0.83-4.51); Lymphocyte % 19.9 % (19-41); Mean Corp Hgb Conc 34.5 g/dL (32-36); Mean Corpuscular Hgb 29.8 pg (27.0-32.0); Mean Corpuscular Volume 86.5 fL (81-99); Mean Platelet Vol. 11.4 fl (6.2-12.0); Monocyte% 9.3 % (0-10); NRBC Flagged by Analyzer 0 % (0-5); Neutrophil # 6.36 X10^3/uL (2.7-7.7); Neutrophil % 65.5 % (47-70); Platelet Count 247 K/mm3 (150-450); RBC Distribution Width CV 12.5 % (11.6-14.6); RBC Distribution Width SD 39.9 fl (35.1-43.9); Red Blood Count 4.73 M/mm3 (4.2-5.4); White Blood Count 9.7 K/mm3 (4.4-11.0)
[2021-12-21 08:33] LABS: Anion Gap 5 (5-15); BUN 27 mg/dL (7-18); BUN/Creat Ratio 26.2 RATIO (10-20); Calcium,Total 10.2 mg/dL (8.5-10.1); Chloride 98 mmol/L (98-107); Creatinine, Serum 1.03 mg/dL (0.55-1.02); EST Glomerular Filtration Rate 54 mL/min (>60); Est Glom Filt Rate - Afr Amer 65 mL/min (>60); Glucose 120 mg/dL (74-106); Potassium 4.1 mmol/L (3.5-5.1); Sodium Level 133 mmol/L (136-145); Thyroid Stim Hormone (TSH) 1.74 uIU/mL (0.358-3.74)
[2021-12-21 08:35] LABS: Color, Urine Yellow (Yellow); Glucose, Dipstick Normal (Normal); Ketone-Dipstick Negative (Negative); Leukocyte Esterase-Dipstick 500 /ul (Negative); Nitrite-Dipstick Negative (Negative); Occult Blood-Urine Negative /ul (Negative); Protein-Dipstick 15 mg/dl (Negative); Urine Bilirubin Dipstick Negative (Negative); Urine Clarity Sl. Cloudy (Clear); Urine Urobilinogen Normal (Normal); Urine pH 6.5 (5.0 - 8.0)
== END ==
LOC: OLS.WHLTSB 07:05
PROVIDERS: PCP Internal Medicine; Visit Provider Family Medicine
DX: E11.9 Type 2 diabetes mellitus without complications (principal); R11.0 Nausea; R12 Heartburn; H04.123 Dry eye syndrome of bilateral lacrimal glands; M54.59 Other low back pain; R30.0 Dysuria; R41.841 Cognitive communication deficit; M79.674 Pain in right toe(s); N39.0 Urinary tract infection, site not specified
CPT/HCPCS: 36415; 80048; 81002; 84443; 85025; 87086; 87088

== ENCOUNTER → 2022-02-10 | Outpatient (CLI) | payer MEDICARE, OTHER, SELFPAY ==
[2022-02-10 12:33] LABS: Erythrocyte Sedimentation Rate 18 mm/hr (0-30)
[2022-02-10 12:35] LABS: Hematocrit 38.2 % (37-47); Hemoglobin 12.5 g/dL (12.0-15.0); Mean Corp Hgb Conc 32.7 g/dL (32-36); Mean Corpuscular Hgb 29.8 pg (27.0-32.0); Mean Corpuscular Volume 91.2 fL (81-99); Mean Platelet Vol. 12.5 fl (6.2-12.0); Platelet Count 244 K/mm3 (150-450); RBC Distribution Width CV 13.4 % (11.6-14.6); RBC Distribution Width SD 44.5 fl (35.1-43.9); Red Blood Count 4.19 M/mm3 (4.2-5.4); White Blood Count 9.1 K/mm3 (4.4-11.0)
[2022-02-10 12:48] LABS: CRP < 2.90 mg/L (0.0-3.0)
== END | disposition home or self-care (01) ==
LOC: MTLAB 10:43
PROVIDERS: PCP Internal Medicine; Referring Provider Ophthalmology; Visit Provider Ophthalmology
DX: R51.9 Headache, unspecified (principal)
CPT/HCPCS: 36415; 85027; 85652; 86140

== ENCOUNTER 2022-02-22 16:24 | Inpatient (IN) | payer MEDICARE, OTHER, SELFPAY ==
[2022-02-22] VITALS (11 sets, daily range): BP systolic 156–199; BP diastolic 57–135; PULSE 56–73; RESP 13–22; TEMP 36.2–37.1; O2SAT 95–98; BMI 26.4; BMI 24.8
--- NOTE | 2022-02-22 16:48 | EKG12_ITS ---
Test Reason : CONFUSON Blood Pressure : / mmHG Vent. Rate : 056 BPM Atrial Rate : 056 BPM P-R Int : 188 ms QRS Dur : 072 ms QT Int : 442 ms P-R-T Axes : 027 -17 035 degrees QTc Int : 426 ms Sinus bradycardia Nonspecific T wave abnormality Abnormal ECG Confirmed by TENZIN ALLRED, A[place]ANDRI[place] ([id number]), medical transcription editor ZEESHAN THAKKAR ([id number]) on 02/24/2022 8:03:27 AM Referred By: DYLON Confirmed By:ALEXANDRIA DAVE MD
--- NOTE | 2022-02-22 16:48 | CT_ITS ---
STUDY: CTA HEAD AND NECK WITH CONTRAST REASON FOR EXAM: Female, 86 years old. tia RADIATION DOSAGE (If Supplied By Facility): CTDIvol = ( 28.96 ) mGy, DLP = ( 1350.32 ) mGycm TECHNIQUE: CT angiography was performed with a multi-detector CT scanner. Data acquisition was obtained from the skull base through the vertex following intravenous administration of IV 100mL [id number]-[id number]. MIP images were reconstructed from the axial data set. Post-processing of the angiographic images was performed, with multiplanar reformation and 3D reconstruction. Individualized dose optimization techniques were used for this CT. COMPARISON: No relevant priors. FINDINGS: Normal bilateral petrous carotid arteries. Mild calcific plaquing of the right cavernous carotid artery with a normal supraclinoid bifurcation. Mild calcific plaquing of the left cavernous carotid artery with a normal supraclinoid bifurcation. Normal right A1 segments of the anterior cerebral artery. Normal left A1 segments of the anterior cerebral artery. Normal intact anterior communicating artery (ACOM). Normal bilateral A2 segments of the anterior cerebral arteries. Normal right M1 and M2 segments of the middle cerebral arteries, with a normal M1 bifurcation. Normal left M1 and M2 segments of the middle cerebral arteries, with a normal M1 bifurcation. Normal right posterior communicating artery (PCOM). Normal left posterior communicating artery (PCOM). Normal bilateral vertebral arteries. Normal basilar artery with a normal basilar bifurcation. The visualized bilateral superior cerebellar (SCA) arteries are normal. Normal bilateral P1, P2 and visualized P3 segments of the posterior cerebral arteries. There is no demonstrated aneurysm of the [place]. AORTIC ARCH: Normal visualized aortic arch. Normal origins of the brachiocephalic, left common carotid, and left subclavian arteries. RIGHT CAROTID ARTERIES: Normal right common carotid artery (CCA). Severe calcific plaquing of the right common carotid bulb creating high-grade stenosis. Severe calcific plaquing of the origin of the right internal carotid (ICA) artery creating hemodynamically significant stenosis. Normal visualized cervical portion of the right internal carotid artery. Normal origin of the right external carotid artery (ECA). LEFT CAROTID ARTERIES: Mild multifocal calcific plaquing of the left common carotid artery (CCA). Moderate calcific plaquing of the left common carotid bulb. Moderate calcific plaquing of the origin of the left internal carotid (ICA) artery without a hemodynamically significant stenosis. Normal visualized cervical portion of the left internal carotid artery. Normal origin of the left external carotid artery (ECA). VERTEBRAL ARTERIES: Normal bilateral vertebral arteries. CT/CTA Head AND Neck W/ Contrast IMPRESSION: Mild atherosclerotic changes of the brain without hemodynamically significant stenosis. 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 Electronically Signed: Kareem Estrada MD at 18:41 EDT ,
--- NOTE | 2022-02-22 16:52 | ED.VIS.STROK ---
HPI History of Present Illness Chief Complaint: Confusion Detail of Chief Complaint: Confusion and slurred speech, resolved Informant: patient Onset/Context/Timing Onset: Today Narrative Narrative: Patient presents via EMS for evaluation of possible TIA. Patient states that she was confused and had slurred speech that lasted about 15 minutes. She was aware of what was going on and just could not get the words out she wanted to say. She states no one mentioned having a facial droop. She did not feel as if she had arm or leg weakness. She does report having a headache at the time and states that she has been having headaches recently. [facility] Medical History Abnormal stress test Acute respiratory failure with hypoxia Arteriovenous fistula, acquired, of heart Asthma Atherosclerosis of [place] coronary artery of [place] heart without angina pectoris Bilateral carotid artery stenosis Cerebral artery occlusion Chest pain COPD (chronic obstructive pulmonary disease) Coronary artery anomaly Debility Diabetes Epigastric pain Essential (primary) hypertension Falls Former smoker GERD (gastroesophageal reflux disease) Insulin dependent type 2 diabetes mellitus Limited mobility Presence of stent in coronary artery (~02/27/18) Pubic ramus fracture Pure hypercholesterolemia Sleep apnea Spinal stenosis Stage II pressure ulcer of left buttock Stage II pressure ulcer of right buttock Stage II pressure ulcer of sacral region Syncope and collapse TIA (transient ischemic attack) Type 2 diabetes mellitus, with long-term current use of insulin Home Medications pantoprazole 40 mg tablet,delayed release 40 mg PO DAILY GERD 05/30/17 [History Last Taken 07/13/21] citalopram 20 mg tablet 20 mg PO DAILY depression 04/28/20 [History Last Taken 07/13/21] isosorbide mononitrate 30 mg tablet,extended release 24 hr 15 mg PO DAILY blood pressure #45 tabs 06/08/20 [Rx Last Taken 07/13/21] aspirin 81 mg tablet,delayed release 81 mg PO DAILY HEALTH MAINTENANCE 06/17/20 [History Last Taken 07/13/21] insulin detemir U-100 100 unit/mL (3 mL) subcutaneous pen 10 unit SQ QHS DM 07/13/21 [History Last Taken 07/12/21] losartan 50 mg tablet 50 mg PO DAILY BP 07/13/21 [History Last Taken 07/13/21] acetaminophen 500 mg tablet 1,000 mg PO Q6H PRN PRN Pain Score 1-3 #0 tabs 08/11/21 [Rx Last Taken Unknown] atorvastatin 20 mg tablet 20 mg PO QHS 30 days #30 tabs 08/11/21 [Rx Last Taken Unknown] insulin aspart U-100 100 unit/mL (3 mL) subcutaneous pen 10 unit (0.1 mL) subcut TID diabetes #0 mL 08/11/21 [Rx Last Taken 07/13/21] metoprolol succinate 25 mg tablet,extended release 24 hr 25 mg PO BID 30 days #60 tabs 08/11/21 [Rx Last Taken Unknown] tramadol 50 mg tablet 50 mg PO Q6H PRN PRN Pain Score 4-10 7 days #28 tabs 08/11/21 [Rx Last Taken Unknown] Allergy/AdvReac Type Severity Reaction Status Date / Time metronidazole [From Flagyl] Allergy PT UNSURE Verified 02/22/22 17:38 OF REACTION oxycodone HCl Allergy hallucinati Verified 02/22/22 17:38 [From OxyContin] on lidocaine AdvReac Nausea Verified 02/22/22 17:38 Family History Father CAD (coronary artery disease) Myocardial infarction Mother Cancer Sister Breast cancer Surgical History H/O tubal ligation History of coronary artery stent placement History of cystoscopy (06/03/20) Hx of cardiac cath Presence of coronary angioplasty implant and graft (~02/27/18) S/p bilateral carpal tunnel release Social History household members: none housing: apartment current occupational status: retired leisure activities: games and other Smoking Status: Former smoker how long ago did patient quit smokin years ago, when smoking 1/4-1/2 ppd maximum. second hand exposure: No alcohol intake: never substance use type: does not use caffeine: Yes Type: coffee Number of servings: 2 ROS ROS ED Constitutional Constitutional ED: Denies chills or fever(s) Eyes Eyes: Denies change in vision or discharge from eye(s) ENT ENT ED: Denies discharge from eye(s), rhinorrhea or sore throat Cardiovascular Cardiovascular: Denies chest pain or palpitations Respiratory/Chest Respiratory/Chest: Denies cough or dyspnea Gastrointestinal Gastrointestinal: Denies abdominal pain, diarrhea, nausea or vomiting Genitourinary Genitourinary ED: Denies dysuria Musculoskeletal Musculoskeletal: Denies back pain or extremity pain Integumentary Denies Abrasions or rash Neurologic Neurologic: Reports headache(s) and other Details: Speech difficulty ; Denies weakness Psychiatric Psychiatric: Denies anxiety or depression Allergic/Immunologic Allergic/Immunologic ED: Denies lip swelling or urticaria EXAM Physical Exam Const Vital Signs: 02/22/22 16:25 02/22/22 16:31 02/22/22 17:27 Temperature 98.2 F 98.2 F Temperature Source Oral Oral Pulse Rate 57 L 57 L 56 L Respiratory Rate 13 13 22 H Blood Pressure 156/135 H 156/135 H 168/57 H Blood Pressure Mean 142 142 94 Pulse Ox 96 96 97 Oxygen Delivery Method Room Air Room Air Room Air 02/22/22 18:32 02/22/22 19:02 Temperature Temperature Source Pulse Rate 63 73 Respiratory Rate 13 19 H Blood Pressure 190/70 H 191/68 H Blood Pressure Mean 110 109 Pulse Ox 96 98 Oxygen Delivery Method Room Air Room Air Positive well nourished and well developed General Appearance ED: well developed HEENT Reports normocephalic and head/scalp atraumatic Eyes PERRL and EOMs intact bilaterally Neck supple Chest Wall inspection of chest normal and palpation of chest normal Resp normal respiratory effort and clear to auscultation bilaterally Cardio regular rate and regular rhythm GI normal to inspection, nondistended, normoactive bowel sounds Palpation: soft Back/Spine no CVA tenderness Extremity normal to inspection Neuro oriented x3 and no sensory deficits noted Neuro Narrative: NIH score is technically 2. She receives one-point for left arm weakness and one-point for left leg weakness. She states this is chronic and unchanged from her baseline. Sensorium / Orientation: alert Psych mental status grossly normal Skin no rashes or lesions noted MDM MDM MDM Narrative Medical decision making narrative: Patient presents with what sounds of a TIA. She has no symptoms other than her baseline at this time. Lab work, EKG, chest x-ray, CTA of the head and neck obtained. Lab Data Attestation: I reviewed the patient's lab results. Labs: Laboratory Results - last 24 hr 02/22/22 02/22/22 02/22/22 17:10 17:10 17:10 WBC 9.5 RBC 4.29 Hgb 12.8 Hct 38.2 MCV 89.0 MCH 29.8 MCHC 33.5 RDW Std Deviation 43.6 RDW Coeff of Yaneli 13.3 Plt Count 217 MPV 11.4 Immature Gran % (Auto) 0.600 Neut % (Auto) 59.8 Lymph % (Auto) 24.8 [place] % (Auto) 10.0 Eos % (Auto) 4.1 Baso % (Auto) 0.7 Absolute Neuts (auto) 5.7 Absolute Lymphs (auto) 2.37 Nucleated RBC % 0 PT 13.9 INR 1.1 APTT 33.5 Sodium 133 L Potassium 4.9 Chloride 99 Carbon Dioxide 27.0 Anion Gap 7 BUN 34 H Creatinine 1.29 H Estim Creat Clear Calc 27.89 Est GFR (MDRD) Af Amer 50 L Est GFR (MDRD) Non-Af 42 L BUN/Creatinine Ratio 26.4 H Glucose 256 H Calcium 9.2 Troponin I High Sens 6 Radiography Diagnostic Testing: Clinical Impression(s) from Imaging Studies Head/Neck CTA 02/22/22 16:48 IMPRESSION: Mild atherosclerotic changes of the brain without hemodynamically significant stenosis. 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 Electronically Signed: Kareem Estrada MD at 18:41 EDT , Chest X-Ray 02/22/22 18:03 IMPRESSION: ASHD. No acute cardiopulmonary pathology. Electronically Signed: Kareem Estrada MD at 18:31 EDT , EKG Initial EKG: Attestation: I personally reviewed and interpreted this EKG as follows: Interpretation: Sinus Bradycardia (Sinus bradycardia at 56 bpm. T wave flattening noted throughout.) Treatment and Re-Evaluation Narrative: CBC and chemistry studies unremarkable other than creatinine of 1.29 and glucose of 256. Coags normal. Troponin is normal at 6. CTA of the head and neck reveals moderate atherosclerotic changes in the left carotid and more severe disease on the right. They do comment that she has significant stenosis of the right common carotid however do not give me a percentage. I will speak with hospitalist regarding admission for TIA/stroke work-up and patient will need vascular consult and evaluation. Discharge Plan Dx/Rx/DC Orders Clinical Impression: Brain TIA, Carotid stenosis Disposition Disposition: Acute Care Hospital [facility]
[2022-02-22 17:18] LABS: Absolute Lymphocyte Count 2.37 X10^3/uL (0.83-4.51); Absolute Neutrophil Count 5.7 X10^3/uL (2.0-7.7); Basophil# 0.07 X10^3/uL; Basophil% 0.7 % (0-1); Eosinophil# 0.39 X10^3/uL; Eosinophils% 4.1 % (0-5); Hematocrit 38.2 % (37-47); Hemoglobin 12.8 g/dL (12.0-15.0); Lymphocyte # 2.37 X10^3/ul (0.83-4.51); Lymphocyte % 24.8 % (19-41); Mean Corp Hgb Conc 33.5 g/dL (32-36); Mean Corpuscular Hgb 29.8 pg (27.0-32.0); Mean Platelet Vol. 11.4 fl (6.2-12.0); Monocyte# 0.95 X10^3/uL; NRBC Flagged by Analyzer 0 % (0-5); Neutrophil % 59.8 % (47-70); Platelet Count 217 K/mm3 (150-450); RBC Distribution Width CV 13.3 % (11.6-14.6); RBC Distribution Width SD 43.6 fl (35.1-43.9); Red Blood Count 4.29 M/mm3 (4.2-5.4); White Blood Count 9.5 K/mm3 (4.4-11.0)
[2022-02-22 17:32] LABS: International Normalized Ratio 1.1; Prothrombin Time (Protime)PT. 13.9 SECONDS (11.7-14.9)
[2022-02-22 17:33] LABS: Anion Gap 7 (5-15); BUN 34 mg/dL (7-18); BUN/Creat Ratio 26.4 RATIO (10-20); Calcium,Total 9.2 mg/dL (8.5-10.1); Chloride 99 mmol/L (98-107); Creatinine, Serum 1.29 mg/dL (0.55-1.02); EST Glomerular Filtration Rate 42 mL/min (>60); Est Glom Filt Rate - Afr Amer 50 mL/min (>60); Estimated Creatinine Clearance 27.89 ml/min; Glucose 256 mg/dL (74-106); Partial Thromboplast Time 33.5 Seconds (24.1-36.2); Potassium 4.9 mmol/L (3.5-5.1); Sodium Level 133 mmol/L (136-145); Troponin-I HS 6 pg/mL (3.0-54.0)
--- NOTE | 2022-02-22 18:03 | RAD_ITS ---
STUDY: X-RAY CHEST REASON FOR EXAM: Female, 86 years old. sob TECHNIQUE: AP portable COMPARISON: 05/05/2021 FINDINGS: The lungs are clear and expanded. There is no demonstrated pleural abnormality. Heart is mildly enlarged. Normal mediastinum and jackeline. Normal visualized pulmonary arteries. Mildly calcified visualized aortic arch and descending thoracic aorta. Dorsal spine and shoulders demonstrate degenerative change. Normal visualized ribs, and clavicles. There is no demonstrated abnormality of the visualized soft tissue structures of the upper abdomen. RAD/Chest 1 View (Portable) IMPRESSION: ASHD. No acute cardiopulmonary pathology. Electronically Signed: Kareem Estrada MD at 18:31 EDT ,
--- NOTE | 2022-02-22 19:01 | PCM.HP.STD ---
HPI - General General Date of Admission: 02/22/22 Date of Service: 02/22/22 Chief Complaint: Transient slurred speech, expressive aphasia. HPI Narrative The patient is an 86 y/o F w/ PMHx: CKD stage III with unclear subtype, Asthma/COPD, CAD s/p PCI, Hx BL Carotid stensis, Diabetes mellitus type II, Former tobacco use, Hx prior TIA, ZULEMA, Hx Cerebral artery occlusion per records, Hx coronary artery anomaly who presents to the [facility] ED on 02/22/22 with history of transient confusion and slurred speech prior to ED arrival lasting approximately 15 minutes reporting that she was aware of what was going on but she had significant difficulty getting out the words with no associated facial droop nor any extremity weakness or paresthesias but did state that she has had a headache at that time however she does report a history of headaches previously as well. Work-up in the ED included T98.2, heart rate 63, BP initially 156/135 with most recent repeat 190/70, respiratory rate 13, 96% on room air, CBC with WC 9.5, hemoglobin 12.8, platelet 270 without marked shift, unremarkable coags, BMP with sodium 133, BUN/creatinine 34/1.29, glucose 256, troponin 6, chest with no acute cardiopulmonary findings, CT head/CTA head and neck with mild atherosclerotic changes of the brain without any hemodynamically significant stenosis, moderate atherosclerotic change of the left carotid and more severe disease on the right demonstrating hemodynamically significant stenosis the right common carotid and origin of the internal carotid, EKG with sinus bradycardia with no acute evidence of ischemia. In the ED patient ministered Plavix 150 mg p.o. x1. In the ED patient evaluation with NIHSS 2 for L upper and lower extremity weakness which she of note reports is chronic and her baseline. ED physician did discuss case with vascular surgery on-call given significant findings on CTA head and neck with requested Plavix 150 mg load upon admission and start of Plavix 75 mg daily 02/23/2022 with planned evaluation in AM. [facility], [facility] Medical History Abnormal stress test Acute respiratory failure with hypoxia Arteriovenous fistula, acquired, of heart Asthma Atherosclerosis of [place] coronary artery of [place] heart without angina pectoris Bilateral carotid artery stenosis Cerebral artery occlusion Chest pain COPD (chronic obstructive pulmonary disease) Coronary artery anomaly Debility Diabetes Epigastric pain Essential (primary) hypertension [place] Former smoker GERD (gastroesophageal reflux disease) Insulin dependent type 2 diabetes mellitus Limited mobility Presence of stent in coronary artery (~02/27/18) Pubic ramus fracture Pure hypercholesterolemia Sleep apnea Spinal stenosis Stage II pressure ulcer of left buttock Stage II pressure ulcer of right buttock Stage II pressure ulcer of sacral region Syncope and collapse TIA (transient ischemic attack) Type 2 diabetes mellitus, with long-term current use of insulin Home Medications citalopram 20 mg tablet 20 mg PO DAILY depression 04/28/20 [History Last Taken 07/13/21] isosorbide mononitrate 30 mg tablet,extended release 24 hr 15 mg PO DAILY blood pressure #45 tabs 06/08/20 [Rx Last Taken 07/13/21] aspirin 81 mg tablet,delayed release 81 mg PO DAILY HEALTH MAINTENANCE 06/17/20 [History Last Taken 07/13/21] insulin detemir U-100 100 unit/mL (3 mL) subcutaneous pen 10 unit SQ QHS DM 07/13/21 [History Last Taken 07/12/21] losartan 50 mg tablet 50 mg PO DAILY BP 07/13/21 [History Last Taken 07/13/21] acetaminophen 500 mg tablet 1,000 mg PO Q6H PRN PRN Pain Score 1-3 #0 tabs 08/11/21 [Rx Last Taken Unknown] atorvastatin 20 mg tablet 20 mg PO QHS 30 days #30 tabs 08/11/21 [Rx Last Taken Unknown] tramadol 50 mg tablet 50 mg PO Q6H PRN PRN Pain Score 4-10 7 days #28 tabs 08/11/21 [Rx Last Taken Unknown] acetaminophen 500 mg tablet 1,000 mg PO DAILY 02/22/22 [History Last Taken 02/22/22] insulin aspart U-100 100 unit/mL (3 mL) subcutaneous pen 8 unit SC LUNCH diabetes 02/22/22 [History Last Taken 02/22/22] insulin aspart U-100 100 unit/mL (3 mL) subcutaneous pen See Protocol subcut BID@0730,1530 02/22/22 [History Last Taken 02/22/22] metoprolol succinate 25 mg tablet,extended release 24 hr 25 mg PO BID BP 02/22/22 [History Last Taken 02/22/22] pantoprazole 20 mg tablet,delayed release 40 mg PO DAILY GERD 02/22/22 [History Last Taken 02/22/22] peg 400-propylene glycol 0.4 %-0.3 % eye drops (Systane (propylene glycol)) 2 drp EACH EYE TID 02/22/22 [History Last Taken 02/22/22] psyllium husk 3.4 gram/5.4 gram oral powder (Metamucil) 1 tbsp PO DAILY 02/22/22 [History Last Taken 02/22/22] tramadol 50 mg tablet 50 mg PO DAILY 02/22/22 [History Last Taken 02/22/22] vit C 250 mg-vit E 90 mg-zinc 40 mg-copper 1 pt-dwennq-ltiwol capsule (PreserVision AREDS-2) 1 tab PO BID EYE HEALTH 02/22/22 [History Last Taken 02/22/22] white petrolatum-mineral oil 83 %-15 % eye ointment (Artificial Eye Lubricant) 1 applic RIGHT EYE QHS 02/22/22 [History Last Taken 02/21/22] Allergy/AdvReac Type Severity Reaction Status Date / Time metronidazole [From Flagyl] Allergy PT UNSURE Verified 02/22/22 17:38 OF REACTION oxycodone HCl Allergy hallucinati Verified 02/22/22 17:38 [From OxyContin] on lidocaine AdvReac Nausea Verified 02/22/22 17:38 Family History Father CAD (coronary artery disease) Myocardial infarction Mother Cancer Sister Breast cancer Surgical History H/O tubal ligation History of coronary artery stent placement History of cystoscopy (06/03/20) Hx of cardiac cath Presence of coronary angioplasty implant and graft (~02/27/18) S/p bilateral carpal tunnel release Social History (Updated 02/22/22 @ 19:[address] Joyce Valero MD) housing: assisted living facility current occupational status: retired leisure activities: games and other Smoking Status: Former smoker how long ago did patient quit smokin years ago, when smoking 1/4-1/2 ppd maximum. second hand exposure: No alcohol intake: never substance use type: does not use caffeine: Yes Type: coffee Number of servings: 2 ROS ROS Narrative Admission Review of Systems: CONSTITUTIONAL: No weight loss, fever, chills, + weakness or fatigue. HEENT: Eyes: No visual loss, blurred vision, double vision or yellow sclerae. Ears, Nose, Throat: No hearing loss, sneezing, congestion, runny nose or sore throat. SKIN: No rash or itching, lesions, wounds. CARDIOVASCULAR: No chest pain, chest pressure or chest discomfort, palpitations, edema, orthopnea, syncopal events. RESPIRATORY: No shortness of breath, cough or sputum, wheezing, hemoptysis. GASTROINTESTINAL: No anorexia, nausea, vomiting or diarrhea, abdominal pain, melena, BRBPR. GENITOURINARY: No dysuria, frequency, urgency or retention. NEUROLOGICAL: + Transient expression aphasia, slurred speech, chronic mild L sided weakness, No headache, dizziness, syncope, paralysis, ataxia, numbness or tingling in the extremities, new onset focal weakness, change in bowel or bladder control, seizure. MUSCULOSKELETAL: + muscle, back pain, joint pain or stiffness. HEMATOLOGIC: No anemia, bleeding or bruising. LYMPHATICS: No enlarged nodes. No history of splenectomy. PSYCHIATRIC: + history of depression or anxiety. ENDOCRINOLOGIC: No reports of sweating, cold or heat intolerance. No polyuria or polydipsia. ALLERGIES: + history of asthma, rhinitis. Vital Signs Vital Signs Vital Signs: 02/22/22 16:25 02/22/22 16:31 02/22/22 17:27 Temperature 98.2 F 98.2 F Temperature Source Oral Oral Pulse Rate 57 L 57 L 56 L Respiratory Rate 13 13 22 H Blood Pressure 156/135 H 156/135 H 168/57 H Blood Pressure Mean 142 142 94 Pulse Ox 96 96 97 Oxygen Delivery Method Room Air Room Air Room Air 02/22/22 18:32 Temperature Temperature Source Pulse Rate 63 Respiratory Rate 13 Blood Pressure 190/70 H Blood Pressure Mean 110 Pulse Ox 96 Oxygen Delivery Method Room Air Weight Weight: 126 lb 12.253 oz Body Mass Index (BMI) 26.4 Physical Exam Narrative Physical Examination: General: Awake, alert, oriented x 3 , mildly hard of hearing, remains cooperative, seated upright in the ED bed in no apparent distress, continued complete resolution of prior neurological symptoms. Skin: Normal color, normal turgor, no icterus, no cyanosis. HEENT: AT/NC, EOMI, PERRLA, MMM, no carotid bruits or JVD noted, no evidence of any facial droop. Lungs: Mildly diminished, greater bases, appropriate effort no rales, ronchi or wheezing. Heart: Mildly bradycardic with regular rhythm; no gallop, rub audible. Abdomen: Soft, overweight, NTTP, ND, mildly hyperactive BS, no HSM. Extremities: No cyanosis, clubbing, or edema. Neurological: Patient awake, alert, oriented as noted, cognitive function appears baseline intact; pupils equally reactive to light and accommodation, cranial nerves grossly normal, moving all 4 extremities, unchanged chronic mild left-sided upper and lower extremity weakness, no new focal deficits, FTN/HTS appropriate, sensation intact, no evidence of further expression aphasia, strength moderately global decrease secondary to chronic underlying comorbidities. Psychiatric: Affect appears normal, no acute evidence of depressive or anxiety feelings but does have underlying history. Results Lab / Micro Data Result Diagrams: 02/22/22 17:10 02/22/22 17:10 Labs: Laboratory Results - last 24 hr 02/22/22 17:10: WBC 9.5, RBC 4.29, Hgb 12.8, Hct 38.2, MCV 89.0, MCH 29.8, MCHC 33.5, RDW Std Deviation 43.6, RDW Coeff of [place]eli 13.3, Plt Count 217, MPV 11.4, Immature Gran % (Auto) 0.600, Neut % (Auto) 59.8, Lymph % (Auto) 24.8, [place] % (Auto) 10.0, Eos % (Auto) 4.1, Baso % (Auto) 0.7, Absolute Neuts (auto) 5.7, Absolute Lymphs (auto) 2.37, Nucleated RBC % 0 02/22/22 17:10: PT 13.9, INR 1.1, APTT 33.5 02/22/22 17:10: Sodium 133 L, Potassium 4.9, Chloride 99, Carbon Dioxide 27.0, Anion Gap 7, BUN 34 H, Creatinine 1.29 H, Estim Creat Clear Calc 27.89, Est GFR (MDRD) Af Amer 50 L, Est GFR (MDRD) Non-Af 42 L, BUN/Creatinine Ratio 26.4 H, Glucose 256 H, Calcium 9.2, Troponin I High Sens 6 Radiology Impression Head/Neck CTA 02/22/22 16:48 IMPRESSION: Mild atherosclerotic changes of the brain without hemodynamically significant stenosis. 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 Electronically Signed: Kareem Estrada MD at 18:41 EDT , Chest X-Ray 02/22/22 18:03 IMPRESSION: ASHD. No acute cardiopulmonary pathology. Electronically Signed: Kareem Estrada MD at 18:31 EDT , Assessment & Plan Assessment/Plan (1) Carotid stenosis: (2) Brain TIA: PLAN: Plan The patient is an 86 y/o F w/ PMHx: CKD stage III with unclear subtype, Asthma/COPD, CAD s/p PCI, Hx BL Carotid stensis, Diabetes mellitus type II, Former tobacco use, Hx prior TIA, ZULEMA, Hx Cerebral artery occlusion per records, Hx coronary artery anomaly who presents to the [facility] ED on 02/22/22 with history of transient confusion and slurred speech prior to ED arrival lasting approximately 15 minutes reporting that she was aware of what was going on but she had significant difficulty getting out the words with no associated facial droop nor any extremity weakness or paresthesias but did state that she has had a headache at that time however she does report a history of headaches previously as well. #1. Transient slurred speech, expressive aphasia with notable carotid disease concerning for TIA/CVA with history of prior TIA and per charts cerebral artery occlusion previously: Will admit to PCU, will obtain MRI Brain, will also obtain carotid US and if confirmed notable disease would be appropriate and we will continue vascular consultation initiated per ED physician, will obtain ECHO, PT/OT/Speech/Nutrition evaluation per protocol. Will allow permissive HTN, maintain on asa, Plavix newly initiated, statin w/ AM FLP, fall precautions. Mag, TSH, HgbA1c pending. Once further evaluation and work-up is performed/obtained would be appropriate for neurology evaluation. #2. Chronic COPD/asthma: Not on any routine inhalers, PRN albuterol, HOB, IS parameters. #3. CAD with history of coronary artery anomaly: s/p PCI and intervention, will continue aspirin, statin, permissive hypertension temporarily, add back metoprolol and losartan once appropriate. #4. Diabetes mellitus type II: Hold oral home regimen, continue home insulin regimen, ADA diet, accu checks w/ ISS. #5. Hypertension: We will maintain permissive hypertension pending work-up as noted above #1 with as needed agents per stroke protocol. #6. Hyperlipidemia: We will continue patient on statin with FLP in a.m. #7. Chronic Kidney Disease Stage III, unclear subtype: Admission BUN/Cr 34/1.29, baseline renal function baseline appears primarily 0.8-1.2, repeat BMP in AM. #8. Anxiety and depression: We will continue patient home citalopram regimen. #9. Former tobacco use: Encourage continued tobacco cessation. #10. GERD: We will maintain on home PPI. #11. ZULEMA: CPAP nightly #12. DVT prophylaxis: SCDs, heparin. #13. CODE status: Patient HCPDEV is Daughter who is present and living will is currently in place. Discussed CODE status at length including difference between FULL code, DNR-CCA and DNR-CC status. Following discussions about the differences in these status, requested DNR-CCA, no intubation status. Advanced Care Planning Face to Face Time: 16 minutes. Charges/Coding Visit Charges OBSV E&M: 84634 Initial observation care L3 Procedures Hospitalists Procedures: 25069 Advncd Care Plan 30 Min
[2022-02-22 19:48] LABS: Magnesium 1.3 mg/dL (1.6-2.6)
[2022-02-22] MEDS: Clopidogrel Bisulfate 75 MG Tablet 150 MG PO (19:50)
--- NOTE | 2022-02-22 20:54 | ECHOD_ITS ---
Reason For Study: CVA Procedure This was a 2D Doppler, Color Flow transthoracic echocardiogram. Exam performed portable in patient room. Left Ventricle The left ventricle is normal in size, thickness, and systolic function. Diastolic function is indeterminate. The left ventricular ejection fraction is 65 %. Right Ventricle Normal right ventricle. Atria The left and right atria are normal. Bubble contrast study negative for right to left interatrial shunt. Mitral Valve Mild mitral annular calcification. Trivial mitral valve insufficiency. Tricuspid Valve Trivial tricuspid valve insufficiency. Aortic Valve Aortic sclerosis, no stenosis. Pulmonic Valve The pulmonic valve is not well visualized. Great Vessels Normal sized aortic root. Pericardium/Pleural No pericardial effusion. Medication Performed a rapid injection of agitated mix of 9 cc saline and 1cc air to assess for atrial septal defect. MMode/2D Measurements & Calculations LVIDd: 4.1 cm IVSd: 0.92 cm Ao root diam: 3.2 cm LVIDs: 2.3 cm LVPWd: 1.1 cm RVDd: 2.9 cm FS: 45.4 % LAV(MOD-bp): 39.9 ml LVAd ap4: 19.7 cm2 SV(MOD-sp4): 34.0 ml LAV(MOD-bp) Indexed: 27.0 ml/m2 LVLd ap4: 6.4 cm LAV(MOD-sp2): 49.9 ml EDV(MOD-sp4): 49.7 ml LAV(MOD-sp4): 28.7 ml EDV(sp4-el): 51.5 ml LVAs ap4: 9.8 cm2 LVLs ap4: 5.1 cm ESV(MOD-sp4): 15.7 ml ESV(sp4-el): 16.0 ml EF(MOD-sp4): 68.3 % EF(sp4-el): 69.0 % SV(sp4-el): 35.5 ml LA A4 area: 12.8 cm2 LA dimension(2D): 3.8 cm RA A4 area: 9.3 cm2 Doppler Measurements & Calculations MV E max damion: 66.8 cm/sec Lat Peak E' Damion: 4.4 cm/sec Med Peak E' Damion: 5.3 cm/sec MV A max damion: 97.9 cm/sec E/E' lat: 15.1 E/E' med: 12.7 MV E/A: 0.68 Ao V2 max: 119.9 cm/sec LV V1 max: 87.2 cm/sec PA V2 max: 79.7 cm/sec Ao max P.7 mmHg LV V1 max P.0 mmHg Ao V2 mean: 76.1 cm/sec Ao mean P.6 mmHg Ao V2 VTI: 29.6 cm TR max damion: 266.4 cm/sec TR max P.4 mmHg ECHO/Echo Complete Interpretation Summary Diastolic function is indeterminate. The left ventricular ejection fraction is 65 %. Mild mitral annular calcification. Aortic sclerosis, no stenosis. Bubble contrast study negative for right to left interatrial shunt. Ordering Physician: Joyce Valero Referring Physician: Rod Dawn Performed By: Allyssa Rascon, ALEJANDRA, RVT
[2022-02-22] MEDS: Acetaminophen 325 MG Tablet 650 MG PO (22:32)
[2022-02-22] MEDS: Heparin Injection (Vial) 5,000 UNIT/ML VIAL 5000 UNIT SC (22:34)
[2022-02-22] MEDS: Atorvastatin Calcium 20 MG Tablet PO (22:35)
[2022-02-22] MEDS: Insulin Glargine-YFGN 100 UNIT/ML Pen 10 UNIT SC (22:36)
[2022-02-22] MEDS: 0.9% Normal Saline 1,000 ML 100 ML IV (23:02)
[2022-02-22 23:10] LABS: Bedside Glucose 356 mg/dL (74-106)
--- NOTE | 2022-02-22 23:13 | CPS ---
Pt does not wear CPAP at home
[2022-02-23] VITALS (13 sets, daily range): BP systolic 139–176; BP diastolic 54–92; PULSE 49–79; RESP 16–18; TEMP 36.3–36.7; O2SAT 94–96; BMI 24.8
--- NOTE | 2022-02-23 05:55 | CDU_ITS ---
Reason For Study: Stenosis, TIA Rt. Velocities/BP Lt. Velocities/BP Prox CCA 52.2/5 cm/sec. Prox CCA 60.8/9.7 cm/sec. Mid CCA 73.7/7.8 cm/sec. Mid CCA 59.8/12.6 cm/sec. Dist CCA 41.9/8.8 cm/sec. Dist CCA 61.7/15.4 cm/sec. Prox ICA 184.8/13.7 cm/sec. Prox ICA 58.1/11.4 cm/sec. Mid ICA 112.6/9.4 cm/sec. Mid ICA 65.5/9.5 cm/sec. Dist ICA 81.9/11.6 cm/sec. Dist ICA 153.7/18.9 cm/sec. Rt. ICA/CCA = 3.54. Lt. ICA/CCA = 2.53. Prox ECA 56/2.2 cm/sec. Prox ECA 236.6/6 cm/sec. Rt. Vert. 53.2/6 cm/sec. Lt. Vert. 20.3 cm/sec. Right Extracranial There is homogeneous, smooth atherosclerotic plaque noted in the right common carotid artery. There is heterogeneous, irregular atherosclerotic plaque noted in the right internal carotid artery. There is heterogeneous, irregular atherosclerotic plaque noted in the right external carotid artery. Antegrade flow is noted in the right vertebral artery. Left Extracranial There is homogeneous, smooth atherosclerotic plaque noted in the left common carotid artery. There is heterogeneous, irregular atherosclerotic plaque noted in the left internal carotid artery. The left internal carotid artery is very tortuous. There is heterogeneous, irregular atherosclerotic plaque noted in the left external carotid artery. Antegrade flow is noted in the left vertebral artery. Procedure Carotid Duplex [id number]. This is a Carotid Duplex examination using B-mode, color flow and specral Doppler. Exam performed portable in patient room. VL/Carotid Duplex Ultrasound Interpretation Summary Moderate (50-69%) stenosis right extracranial internal carotid. Moderate (50-69%) stenosis left extracranial internal carotid. Patent and antegrade vertebrals bilaterally. Limited study on right due to calcific shadowing, degree of stenosis may be und erestimated. Ordering Physician: Joyce Valero Referring Physician: Rod Dawn Performed By: Neisha Sanchez RVT
[2022-02-23 06:09] LABS: Absolute Lymphocyte Count 1.85 X10^3/uL (0.83-4.51); Absolute Neutrophil Count 3.5 X10^3/uL (2.0-7.7); Basophil# 0.08 X10^3/uL; Basophil% 1.2 % (0-1); Eosinophil# 0.36 X10^3/uL; Eosinophils% 5.6 % (0-5); Hematocrit 35.3 % (37-47); Hemoglobin 11.9 g/dL (12.0-15.0); Lymphocyte # 1.85 X10^3/ul (0.83-4.51); Lymphocyte % 28.6 % (19-41); Mean Corp Hgb Conc 33.7 g/dL (32-36); Mean Corpuscular Hgb 30.3 pg (27.0-32.0); Mean Corpuscular Volume 89.8 fL (81-99); Mean Platelet Vol. 11.1 fl (6.2-12.0); Monocyte# 0.69 X10^3/uL; Monocyte% 10.7 % (0-10); NRBC Flagged by Analyzer 0 % (0-5); Neutrophil # 3.45 X10^3/uL (2.7-7.7); Neutrophil % 53.4 % (47-70); Platelet Count 200 K/mm3 (150-450); RBC Distribution Width CV 13.2 % (11.6-14.6); RBC Distribution Width SD 43.8 fl (35.1-43.9); Red Blood Count 3.93 M/mm3 (4.2-5.4); White Blood Count 6.5 K/mm3 (4.4-11.0)
[2022-02-23 06:54] LABS: ALB/GLOB Ratio 0.9 RATIO (0.9-2.4); AST(SGOT) 41 U/L (15-37); Alanine Aminotransfer ALT/SGPT 67 U/L (13-56); Albumin, Serum 2.8 g/dL (3.2-5.0); Alkaline Phosphatase 172 U/L (45-117); Anion Gap 8 (5-15); BUN 27 mg/dL (7-18); BUN/Creat Ratio 28.7 RATIO (10-20); Calcium,Total 8.7 mg/dL (8.5-10.1); Chloride 104 mmol/L (98-107); Cholesterol 118 mg/dL (200); Creatinine, Serum 0.94 mg/dL (0.55-1.02); EST Glomerular Filtration Rate 60 mL/min (>60); Est Glom Filt Rate - Afr Amer 72 mL/min (>60); Estimated Creatinine Clearance 36.08 ml/min; Globulin 3.2 g/dL (2.2-4.2); Glucose 306 mg/dL (74-106); High Density Lipoprotein 35 mg/dL; Potassium 4.2 mmol/L (3.5-5.1); Sodium Level 138 mmol/L (136-145); Thyroid Stim Hormone (TSH) 2.73 uIU/mL (0.358-3.74); Triglycerides 190 mg/dL; Very Low Density Lipoprotein 38 mg/dL (5-40)
--- NOTE | 2022-02-23 07:30 | MRI_ITS ---
EXAM: MR HEAD WITHOUT AND WITH INTRAVENOUS CONTRAST CLINICAL INDICATION: CVA TECHNIQUE: Multiplanar and multisequence MR images of the brain were obtained without and with intravenous contrast. This report was created using [employer] report Zig[employer] technology. CONTRAST: 10 mL of IV Clariscan. COMPARISON: CTA head 02/22/2022. FINDINGS: BRAIN AND EXTRA-AXIAL SPACES: No focal signal abnormalities throughout the brain parenchyma. No enhancing intra-axial lesion throughout the brain parenchyma. No intra- or extra-axial hemorrhage. No evidence of acute infarct. No intracranial mass or mass effect. There is preservation of the cox/white matter interface. Posterior fossa structures are unremarkable. Ventricles are appropriate for age. No hydrocephalus. Basal cisterns are patent. SELLA: Unremarkable. Normal sella turcica, pituitary gland, infundibular stalk, optic chiasm and hypothalamus. AUDITORY SYSTEM: Unremarkable. The internal auditory canals are patent. BONES/JOINTS: Solid expansile enhancing lytic mass in the right lateral orbital wall extending posteriorly through the pterion and right greater sphenoid wing. The mass measures approximately 3.3 x 3 cm in the coronal projection. This is causing medial displacement of the right lateral rectus muscle and anterior displacement of the right orbital globe. This mass minimally protrudes into the anterior wall of the right middle cranial fossa. SINUSES: Unremarkable as visualized. Clear. MASTOID AIR CELLS: Unremarkable as visualized. Clear. ORBITS: Unremarkable as visualized. Both globes, extraocular muscles, optic nerves and retrobulbar fat appear unremarkable. VASCULATURE: Unremarkable as visualized. Normal flow voids in the major intracranial circulation. MRI/Brain W/WO Contrast IMPRESSION: 1. 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 The mass measures 3.3 x 3 cm necrotic projection and protrudes minimally into the anterior wall of the right middle cranial fossa and also protrudes minimally in the right temporal fossa. This mass is causing medial displacement of the right lateral rectus muscle and the mild anterior displacement of the right orbital globe. 2. No MRI evidence of acute or subacute ischemic infarct or brain metastases. RECOMMENDATION: Metastatic workup to include radionuclide whole body bone scan. N.B. : The above Results were Read Back by Manuel Whittaker MD to Temi Easton RN, and understanding confirmed on 02/23/2022 10:06:45 (ET). Electronically Signed: Manuel Whittaker MD at 9:54 EDT ,
[2022-02-23 07:57] LABS: Hemoglobin A1c 8.8 % (3.8-5.6)
--- NOTE | 2022-02-23 09:09 | CASEMGMT ---
Discharge Jd Edwards Isabel darnell/taisha hotel assistant manager sent over updates on patient to [facility] via [facility]. Isabel Munoz Discharge Jd Edwards
[2022-02-23] MEDS: Insulin Lispro 100 UNIT/ML INSULN.PEN SC ×4 (09:49→21:55)
[2022-02-23] MEDS: Insulin Lispro 100 UNIT/ML INSULN.PEN 10 UNIT SC ×3 (09:50→16:53)
[2022-02-23] MEDS: Heparin Injection (Vial) 5,000 UNIT/ML VIAL 5000 UNIT SC ×2 (09:54→21:53)
[2022-02-23] MEDS: Clopidogrel Bisulfate 75 MG Tablet PO (09:56)
[2022-02-23] MEDS: Citalopram 20 MG Tablet PO (09:56)
[2022-02-23] MEDS: Pantoprazole Sodium 40 MG Tablet PO (09:56)
[2022-02-23] MEDS: Acetaminophen 325 MG Tablet 650 MG PO ×2 (09:56→22:38)
[2022-02-23] MEDS: Aspirin E.C. 81 MG Tablet PO (09:56)
[2022-02-23 10:00] LABS: Bedside Glucose 323 mg/dL (74-106)
--- NOTE | 2022-02-23 11:34 | CASEMGMT ---
Patient is from [facility]. SW will follow to assist with appropriate d/c plan. Tila PRIEST
[2022-02-23 12:15] LABS: Bedside Glucose 309 mg/dL (74-106)
--- NOTE | 2022-02-23 12:43 | CASEMGMT ---
SW did not complete a PHQ 9 as patient did not have a Stroke or TIA. Tila PRIEST
--- NOTE | 2022-02-23 12:55 | CT_ITS ---
STUDY: CT CHEST, ABDOMEN T PELVIS WITH CONTRAST REASON FOR EXAM: Female, 86 years old. 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 Multiplanar coronal and sagittal images were reformatted. Individualized dose optimization techniques were used for this CT. COMPARISON: Comparison is made with prior CTA of the chest dated 04/30/2021. Comparison is also made with prior CT scan abdomen and pelvis dated 04/28/2020. FINDINGS: CHEST Stable 4.5 mm noncalcified nodule in the anterior posterior aspect of the right middle lobe abutting the right major fissure. Stable mild increased markings in the medial aspect of the right upper lobe as well as in the lower lobes suggestive of scarring. There is no demonstrated pleural abnormality. There are calcifications of the coronary arteries. There are multiple small lymph nodes within the mediastinum, which are normal in size and morphology most compatible with reactive lymph hyperplasia. Normal hilar regions. Normal unenhanced pulmonary arteries. There is atherosclerotic calcification of the aortic arch with tortuosity and elongation of the aortic arch and descending thoracic aorta. There are multi-level degenerative changes of the thoracic spine. ABDOMEN Normal liver. Normal gallbladder and extrahepatic biliary system. Normal spleen. Normal pancreas. Normal bilateral adrenal glands. Mild degree of right hydronephrosis. Persistent soft tissue density in the proximal portion of the right ureter. A neoplastic process should be ruled out. There is a 1.3 cm cyst in the midportion of the left kidney. The stomach is distended with oral contrast. Normal small intestine. There are multiple colonic diverticula consistent with diverticulosis. The appendix is visualized and appears normal. There is diffuse atherosclerotic calcification of the abdominal aorta, without a demonstrated aneurysm. Normal inferior vena cava. Normal retroperitoneum. There is evidence of the a mesh in the mid right lateral abdominal wall most likely secondary to prior hernia repair. There are diffuse degenerative changes of the visualized lumbar spine. Dextroscoliosis. Anterior listhesis of L4 on L5. Retrolisthesis of L2 on L3. PELVIS Distended urinary bladder. Calcified fibroid uterus. There is no pelvic fluid. There is no pelvic lymphadenopathy or mass lesion. There is diffuse atherosclerotic calcification of the pelvic arteries. Normal abdominal wall. There are diffuse degenerative changes of the visualized lumbar spine. CT/CT Chest, Abd, Pel w/Contrast IMPRESSION: Persistent filling defect in the proximal portion of the right ureter. A ureteral carcinoma should be ruled out. Electronically Signed: Colin Mae MD at 13:41 EDT ,
--- NOTE | 2022-02-23 13:44 | PN.HOSP_ITS ---
Subjective Subjective Patient seen and examined. She had no active complaints today. She came in with slurred speech and some expressive aphasia which has resolved. REview of systems is otherwise negative. Objective Data Objective Data Vital Signs: Vital Signs Temp Pulse Resp BP Pulse Ox O2 Del Method 97.6 F L 55 L 18 155/91 H 95 Room Air 02/23/22 09:30 02/23/22 11:00 02/23/22 09:30 02/23/22 09:30 02/23/22 09:30 02/23/22 09:30 Oxygen Delivery Method Room Air Weight: 119 lb 7.849 oz Body Mass Index (BMI) 24.8 Intake & Output: Intake and Output for Last 24 Hours 02/21/22 02/22/22 02/23/22 23:59 23:59 23:59 Intake Total 1360 / 1360 Output Total 1400 / 1400 Balance -40 / -40 Lab / Micro Data Result Diagrams: 02/23/22 05:55 02/23/22 05:55 Labs: Laboratory Results - last 24 hr 02/22/22 17:10: WBC 9.5, RBC 4.29, Hgb 12.8, Hct 38.2, MCV 89.0, MCH 29.8, MCHC 33.5, RDW Std Deviation 43.6, RDW Coeff of Yaneli 13.3, Plt Count 217, MPV 11.4, Immature Gran % (Auto) 0.600, Neut % (Auto) 59.8, Lymph % (Auto) 24.8, [place] % (Auto) 10.0, Eos % (Auto) 4.1, Baso % (Auto) 0.7, Absolute Neuts (auto) 5.7, Absolute Lymphs (auto) 2.37, Nucleated RBC % 0 02/22/22 17:10: PT 13.9, INR 1.1, APTT 33.5 02/22/22 17:10: Sodium 133 L, Potassium 4.9, Chloride 99, Carbon Dioxide 27.0, Anion Gap 7, BUN 34 H, Creatinine 1.29 H, Estim Creat Clear Calc 27.89, Est GFR (MDRD) Af Amer 50 L, Est GFR (MDRD) Non-Af 42 L, BUN/Creatinine Ratio 26.4 H, Glucose 256 H, Calcium 9.2, Troponin I High Sens 6 02/22/22 17:15: Magnesium 1.3 L 02/22/22 22:31: POC Glucose 356 H 02/23/22 05:55: WBC 6.5, RBC 3.93 L, Hgb 11.9 L, Hct 35.3 L, MCV 89.8, MCH 30.3, MCHC 33.7, RDW Std Deviation 43.8, RDW Coeff of Yaneli 13.2, Plt Count 200, MPV 11.1, Immature Gran % (Auto) 0.500, Neut % (Auto) 53.4, Lymph % (Auto) 28.6, [place] % (Auto) 10.7 H, Eos % (Auto) 5.6 H, Baso % (Auto) 1.2 H, Absolute Neuts (auto) 3.5, Absolute Lymphs (auto) 1.85, Nucleated RBC % 0 02/23/22 05:55: Sodium 138, Potassium 4.2, Chloride 104, Carbon Dioxide 26.0, Anion Gap 8, BUN 27 H, Creatinine 0.94, Estim Creat Clear Calc 36.08, Est GFR (MDRD) Af Amer 72, Est GFR (MDRD) Non-Af 60, BUN/Creatinine Ratio 28.7 H, Glucose 306 H, Calcium 8.7, Total Bilirubin 0.60, AST 41 H, ALT 67 H, Alkaline Phosphatase 172 H, Total Protein 6.0 L, Albumin 2.8 L, Globulin 3.2, Albumin/Globulin Ratio 0.9, Triglycerides 190, Cholesterol 118, LDL Cholesterol 45, VLDL Cholesterol 38, HDL Cholesterol 35 L, TSH 2.73 02/23/22 05:55: Hemoglobin A1c 8.8 H 02/23/22 09:22: POC Glucose 323 H 02/23/22 11:50: POC Glucose 309 H Radiography Diagnostic Testing: Radiology Impression Head/Neck CTA 02/22/22 16:48 IMPRESSION: Mild atherosclerotic changes of the brain without hemodynamically significant stenosis. 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 Electronically Signed: Kareem Estrada MD at 18:41 EDT , Chest X-Ray 02/22/22 18:03 IMPRESSION: ASHD. No acute cardiopulmonary pathology. Electronically Signed: Kareem Estrada MD at 18:31 EDT , Echocardiogram 02/22/22 20:54 Interpretation Summary Diastolic function is indeterminate. The left ventricular ejection fraction is 65 %. Mild mitral annular calcification. Aortic sclerosis, no stenosis. Bubble contrast study negative for right to left interatrial shunt. Ordering Physician: Joyce Valero Referring Physician: Rod Dawn Performed By: Allyssa Rascon, ALEJANDRA, RVT Brain MRI 02/23/22 07:30 IMPRESSION: 1. 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 The mass measures 3.3 x 3 cm necrotic projection and protrudes minimally into the anterior wall of the right middle cranial fossa and also protrudes minimally in the right temporal fossa. This mass is causing medial displacement of the right lateral rectus muscle and the mild anterior displacement of the right orbital globe. 2. No MRI evidence of acute or subacute ischemic infarct or brain metastases. RECOMMENDATION: Metastatic workup to include radionuclide whole body bone scan. N.B. : The above Results were Read Back by Manuel Whittaker MD to Temi Easton RN, and understanding confirmed on 02/23/2022 10:06:45 (ET). Electronically Signed: Manuel Whittaker MD at 9:54 EDT , Chest/Abdomen/Pelvis CT 02/23/22 12:55 IMPRESSION: Persistent filling defect in the proximal portion of the right ureter. A ureteral carcinoma should be ruled out. Electronically Signed: Colin Mae MD at 13:41 EDT , Physical Exam Const alert, oriented x3 and no apparent distress General Appearance: uncooperative HEENT head/scalp atraumatic, moist oral mucous membranes, oropharynx normal and den tition normal HEENT Narrative: Right eye has mild proptosis Head and Scalp: normocephalic Mouth: oral and palatal mucosa normal Eyes PERRL, EOMs intact bilaterally and conjunctivae normal Neck no lymphadenopathy and supple Resp normal respiratory effort, no retractions, no use of accessory muscles and clear to auscultation bilaterally Cardio regular rate, regular rhythm, S1 normal heart sound, S2 normal heart sound and no murmurs GI normal to inspection, nondistended, normoactive bowel sounds, soft to palpation, non-tender and non-distended Extremity normal to inspection, full ROM and no clubbing, cyanosis or edema Neuro oriented x3, CN's II-XII intact bilaterally, moves all extremities and no focal motor deficits Sensorium / Orientation: awake and alert Motor Exam: strength 5/5 throughout Psych affect normal Assessment & Plan Assessment/Plan (1) Brain TIA: PLAN: Plan #?TIA * presented with slurred speech and some expressive aphasia * CT of the brain was negative * MRI of the brain showed no evidence of stroke but showed a solid, enhancing, 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 * Oncology consulted and recommends transfer to a tertiary center for biopsy of the lesion. * CT of the chest, abdomen and pelvis showed persistent filling defect in the proximal portion of the right ureter. * 2D echo showed EF of 65% with normal LV size, thickness and diastolic dysfunction * #Right lateral orbital wall mass * as above * # COPD: not in exacerbation. Breathing treatment with bronchodilators. 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 * in light of this new finding of lytic solid enhancing mets in the right orbital wall, will consult urology, vahe since CT pelvis with contrast still shows persistent filling defect in the proximal portion of the right ureter. * #Hypertension: resume BP meds #Type 2 diabetes mellitus: Hold home meds. On home insulin. AccuChecks ACH S. #Hyperlipidemia: On statin #CKD stage III: #GERD: On PPI #ZULEMA: On CPAP nightly #DVT prophylaxis: Heparin Charges/Coding Visit Charges Inpatient E&M: 28645 Subs Hosp L3
--- NOTE | 2022-02-23 14:11 | CHAPLAIN ---
Type of Pastoral Visit _x__ Initial Visit ___ Follow-up Visit ___ On-call Visit ___ General Patient Visit ___ Spiritual Assessment ___ Family Conference ___ Bereavement ___ Rapid Response ___ Code Blue ___ Other (describe below) Pastoral Care Referral From _x__ Patient ___ Family ___ Nurse ___ Physician ___ Plumbing Inspector ___ Repairer Handtools ___ Other (describe below) Sacrament/Intervention _x__ Active listening ___ Anointing ___ Taoism ___ Bereavement ___ Communion ___ [place] exploration ___ _x__ Life review _x__ Prayer ___ Reconciliation ___ Sacrament of Sick _x__ Supportive presence ___ Wedding ___ Other (describe below) Pastoral Comments referred for visit by patient request but RN gives information beforehand about a new diagnosis; pt reveals what she heard today from medical evaluations; pt will meet with oncology DR to discuss tumor and options; pt speaks of her daughter dying of cancer; another daughter comes into the room at this time; introductions given and offer of support for both; pt says she mejia ee what the DR says and go from there, what can you do?; daughter emphasizes that they are a family of viridiana and their mother has been great so we will be fine; prayer welcomed by both; future visits will be welcome
--- NOTE | 2022-02-23 14:43 | EX.PCM.CON.S ---
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 -work up for possible metastatic source uncerway -CTA with dense calcification and some artifact, 88% stenosis by NASCET and ECST; left side no significant stenosis -duplex to confirm vessel still patent; with heavy calcification may underestimate degree of stenosis due to shadowing -pending conclusion/results of posterior orbital mass and oncologic workup, would be appropriate for right CEA even if asymptomatic -loaded with plavix in ED, cont daily -will cont to follow HPI Consult Data Date of Consult: 02/23/22 HPI Narrative HPI Narrative: ESTUARDO MOODY, is a 86 F who presents with transient confusion and expressive aphasia witnessed by friends. Improved during transport with EMS, now back to normal. No prior similar episodes, no numbness/weakness/vision loss associated. She also has had about 3 months of right side headache starting at eye radiating to back, double vision, increased eye secretion. [facility] Medical History Abnormal stress test Acute respiratory failure with hypoxia Arteriovenous fistula, acquired, of heart Asthma Atherosclerosis of [place] coronary artery of [place] heart without angina pectoris Bilateral carotid artery stenosis Cerebral artery occlusion Chest pain COPD (chronic obstructive pulmonary disease) Coronary artery anomaly Debility Diabetes Epigastric pain Essential (primary) hypertension [place] Former smoker GERD (gastroesophageal reflux disease) Insulin dependent type 2 diabetes mellitus Limited mobility Presence of stent in coronary artery (~02/27/18) Pubic ramus fracture Pure hypercholesterolemia Sleep apnea Spinal stenosis Stage II pressure ulcer of left buttock Stage II pressure ulcer of right buttock Stage II pressure ulcer of sacral region Syncope and collapse TIA (transient ischemic attack) Type 2 diabetes mellitus, with long-term current use of insulin Home Medications citalopram 20 mg tablet 20 mg PO DAILY depression 04/28/20 [History Last Taken 02/22/22] isosorbide mononitrate 30 mg tablet,extended release 24 hr 15 mg PO DAILY blood pressure #45 tabs 06/08/20 [Rx Last Taken 02/22/22] aspirin 81 mg tablet,delayed release 81 mg PO DAILY HEALTH MAINTENANCE 06/17/20 [History Last Taken 02/22/22] insulin detemir U-100 100 unit/mL (3 mL) subcutaneous pen 14 unit SQ QHS DM 07/13/21 [History Last Taken 02/21/22] losartan 50 mg tablet 50 mg PO DAILY BP 07/13/21 [History Last Taken 02/22/22] acetaminophen 500 mg tablet 1,000 mg PO Q6H PRN PRN Pain Score 1-3 #0 tabs 08/11/21 [Rx Last Taken Unknown] atorvastatin 20 mg tablet 20 mg PO QHS 30 days #30 tabs 08/11/21 [Rx Last Taken 02/21/22] tramadol 50 mg tablet 50 mg PO Q6H PRN PRN Pain Score 4-10 7 days #28 tabs 08/11/21 [Rx Last Taken Unknown] acetaminophen 500 mg tablet 1,000 mg PO DAILY 02/22/22 [History Last Taken 02/22/22] insulin aspart U-100 100 unit/mL (3 mL) subcutaneous pen 8 unit SC LUNCH diabetes 02/22/22 [History Last Taken 02/22/22] insulin aspart U-100 100 unit/mL (3 mL) subcutaneous pen See Protocol subcut BID@7501,6010 02/22/22 [History Last Taken 02/22/22] metoprolol succinate 25 mg tablet,extended release 24 hr 25 mg PO BID BP 02/22/22 [History Last Taken 02/22/22] pantoprazole 20 mg tablet,delayed release 40 mg PO DAILY GERD 02/22/22 [History Last Taken 02/22/22] peg 400-propylene glycol 0.4 %-0.3 % eye drops (Systane (propylene glycol)) 2 drp EACH EYE TID 02/22/22 [History Last Taken 02/22/22] psyllium husk 3.4 gram/5.4 gram oral powder (Metamucil) 1 tbsp PO DAILY 02/22/22 [History Last Taken 02/22/22] tramadol 50 mg tablet 50 mg PO DAILY 02/22/22 [History Last Taken 02/22/22] vit C 250 mg-vit E 90 mg-zinc 40 mg-copper 1 [id number] capsule (PreserVision AREDS-2) 1 tab PO BID EYE HEALTH 02/22/22 [History Last Taken 02/22/22] white petrolatum-mineral oil 83 %-15 % eye ointment (Artificial Eye Lubricant) 1 applic RIGHT EYE QHS 02/22/22 [History Last Taken 02/21/22] Allergy/AdvReac Type Severity Reaction Status Date / Time metronidazole [From Flagyl] Allergy PT UNSURE Verified 02/22/22 17:38 OF REACTION oxycodone HCl Allergy hallucinati Verified 02/22/22 17:38 [From OxyContin] on lidocaine AdvReac Nausea Verified 02/22/22 17:38 Family History Father CAD (coronary artery disease) Myocardial infarction Mother Cancer Sister Breast cancer Surgical History H/O tubal ligation History of coronary artery stent placement History of cystoscopy (06/03/20) Hx of cardiac cath Presence of coronary angioplasty implant and graft (~02/27/18) S/p bilateral carpal tunnel release Social History housing: assisted living facility current occupational status: retired leisure activities: games and other Smoking Status: Former smoker how long ago did patient quit smokin years ago, when smoking 1/4-1/2 ppd maximum. second hand exposure: No alcohol intake: never substance use type: does not use caffeine: Yes Type: coffee Number of servings: 2 ROS Constitutional Constitutional: Denies chills, fever(s), frequent falls, lethargy or weakness Eyes Eyes: Reports change in vision bilateral (double vision), discharge from eye(s), double vision and exophthalmos; Denies blind spots or loss of vision ENT HEENT: Denies bleeding gums, hoarseness or sore throat Cardiovascular Cardiovascular: Denies abdominal pain, bluish discoloration of hand/feet, chest pain with activity, claudication, cold extremities, cyanosis, dyspnea on exertion, erythema on extremities, irregular heart rhythm, leg edema, leg ulcers, numbness in extremities or weakness in extremities Respiratory/Chest Respiratory/Chest: Denies cough, excessive phlegm production, shortness of breath at rest, shortness of breath with exertion or wheezing Gastrointestinal Gastrointestinal: Denies anorexia, change in stool character, constipation, diarrhea, melena or rectal bleeding Genitourinary Genitourinary: Denies dysuria or hematuria Musculoskeletal Musculoskeletal: Denies abnormal gait Integumentary Integumentary: Denies erythema, non-healing lesions or wounds Neurologic Neurologic: Reports confusion and headache(s); Denies abnormal speech, focal weakness, loss of vision, numbness, paresthesias or sensory deficit Hematologic/Lymphatic Hematologic/Lymphatic: Denies easy bleeding, easy bruising or lymphadenopathy Physical Exam Const alert, oriented x3, no apparent distress and healthy appearing General Appearance: cooperative; Negative for combative or lethargic Orientation / Consciousness: awake Exam Limitations: no limitations HEENT Head and Scalp: normocephalic and atraumatic Eyes PERRL and EOMs intact bilaterally General Eye: exophthalmos Neck full ROM and no lymphadenopathy General: trachea midline Resp normal respiratory effort and no use of accessory muscles Effort and Inspection: Negative for labored, stridor or audible wheezes Cardio regular rate and regular rhythm Back/Spine Cervical Spine: cervical ROM normal Skin no rashes or lesions noted and no wounds Neuro oriented x3, CN's II-XII intact bilaterally, no focal motor deficits and no sensory deficits noted Psych thought process normal, cooperative, affect normal, speech normal and activity/motor behavior normal Lab / Micro Data Result Diagrams: 02/23/22 05:55 02/23/22 05:55 Labs: Laboratory Results - last 24 hr 02/22/22 17:10: WBC 9.5, RBC 4.29, Hgb 12.8, Hct 38.2, MCV 89.0, MCH 29.8, MCHC 33.5, RDW Std Deviation 43.6, RDW Coeff of [place] 13.3, Plt Count 217, MPV 11.4, Immature Gran % (Auto) 0.600, Neut % (Auto) 59.8, Lymph % (Auto) 24.8, [place] % (Auto) 10.0, Eos % (Auto) 4.1, Baso % (Auto) 0.7, Absolute Neuts (auto) 5.7, Absolute Lymphs (auto) 2.37, Nucleated RBC % 0 02/22/22 17:10: PT 13.9, INR 1.1, APTT 33.5 02/22/22 17:10: Sodium 133 L, Potassium 4.9, Chloride 99, Carbon Dioxide 27.0, Anion Gap 7, BUN 34 H, Creatinine 1.29 H, Estim Creat Clear Calc 27.89, Est GFR (MDRD) Af Amer 50 L, Est GFR (MDRD) Non-Af 42 L, BUN/Creatinine Ratio 26.4 H, Glucose 256 H, Calcium 9.2, Troponin I High Sens 6 02/22/22 17:15: Magnesium 1.3 L 02/22/22 22:31: POC Glucose 356 H 02/23/22 05:55: WBC 6.5, RBC 3.93 L, Hgb 11.9 L, Hct 35.3 L, MCV 89.8, MCH 30.3, MCHC 33.7, RDW Std Deviation 43.8, RDW Coeff of [place] 13.2, Plt Count 200, MPV 11.1, Immature Gran % (Auto) 0.500, Neut % (Auto) 53.4, Lymph % (Auto) 28.6, [place] % (Auto) 10.7 H, Eos % (Auto) 5.6 H, Baso % (Auto) 1.2 H, Absolute Neuts (auto) 3.5, Absolute Lymphs (auto) 1.85, Nucleated RBC % 0 02/23/22 05:55: Sodium 138, Potassium 4.2, Chloride 104, Carbon Dioxide 26.0, Anion Gap 8, BUN 27 H, Creatinine 0.94, Estim Creat Clear Calc 36.08, Est GFR (MDRD) Af Amer 72, Est GFR (MDRD) Non-Af 60, BUN/Creatinine Ratio 28.7 H, Glucose 306 H, Calcium 8.7, Total Bilirubin 0.60, AST 41 H, ALT 67 H, Alkaline Phosphatase 172 H, Total Protein 6.0 L, Albumin 2.8 L, Globulin 3.2, Albumin/Globulin Ratio 0.9, Triglycerides 190, Cholesterol 118, LDL Cholesterol 45, VLDL Cholesterol 38, HDL Cholesterol 35 L, TSH 2.73 02/23/22 05:55: Hemoglobin A1c 8.8 H 02/23/22 09:22: POC Glucose 323 H 02/23/22 11:50: POC Glucose 309 H Radiology Impression Head/Neck CTA 02/22/22 16:48 IMPRESSION: Mild atherosclerotic changes of the brain without hemodynamically significant stenosis. 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 Electronically Signed: Kareem Estrada MD at 18:41 EDT , Chest X-Ray 02/22/22 18:03 IMPRESSION: ASHD. No acute cardiopulmonary pathology. Electronically Signed: Kareem Estrada MD at 18:31 EDT , Echocardiogram 02/22/22 20:54 Interpretation Summary Diastolic function is indeterminate. The left ventricular ejection fraction is 65 %. Mild mitral annular calcification. Aortic sclerosis, no stenosis. Bubble contrast study negative for right to left interatrial shunt. Ordering Physician: Joyce Valero Referring Physician: Rod Dawn Performed By: Allyssa Rascon, RDCS, RVT Brain MRI 02/23/22 07:30 IMPRESSION: 1. 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 The mass measures 3.3 x 3 cm necrotic projection and protrudes minimally into the anterior wall of the right middle cranial fossa and also protrudes minimally in the right temporal fossa. This mass is causing medial displacement of the right lateral rectus muscle and the mild anterior displacement of the right orbital globe. 2. No MRI evidence of acute or subacute ischemic infarct or brain metastases. RECOMMENDATION: Metastatic workup to include radionuclide whole body bone scan. N.B. : The above Results were Read Back by Manuel Whittaker MD to Temi Easton RN, and understanding confirmed on 02/23/2022 10:06:45 (ET). Electronically Signed: Manuel Whittaker MD at 9:54 EDT , Chest/Abdomen/Pelvis CT 02/23/22 12:55 IMPRESSION: Persistent filling defect in the proximal portion of the right ureter. A ureteral carcinoma should be ruled out. Electronically Signed: Colin Mae MD at 13:41 EDT , Charges/Coding Visit Charges Inpatient E&M: 35753 Init Hosp L3
[2022-02-23] MEDS: Multivitamin (Healthy Eyes) Capsule 1 CAP PO (16:52)
[2022-02-23] MEDS: hydrALAZINE 20 MG/ML Vial 10 MG IV (17:01)
[2022-02-23] MEDS: 0.9% Saline Lock 10 ML Syringe IV (17:02)
[2022-02-23 17:15] LABS: Bedside Glucose 181 mg/dL (74-106)
[2022-02-23] MEDS: Carboxymethylcellulose sodium gel dropperette RIGHT EYE (21:58)
[2022-02-23] MEDS: Atorvastatin Calcium 20 MG Tablet PO (22:00)
[2022-02-23] MEDS: Metoprolol(XL)Succ 25 MG Tablet PO (22:00)
[2022-02-24] VITALS (8 sets, daily range): BP systolic 142–154; BP diastolic 61–65; PULSE 58–70; RESP 16–17; TEMP 36.8–37.1; O2SAT 90–95; BMI 24.8
[2022-02-24 00:51] LABS: Bedside Glucose 180 mg/dL (74-106)
[2022-02-24] MEDS: Mag Hydrox/Al Hydrox/Simeth 30 ML UDC PO (06:21)
[2022-02-24 06:35] LABS: Absolute Lymphocyte Count 1.63 X10^3/uL (0.83-4.51); Absolute Neutrophil Count 5.8 X10^3/uL (2.0-7.7); Basophil# 0.09 X10^3/uL; Eosinophil# 0.31 X10^3/uL; Eosinophils% 3.6 % (0-5); Hematocrit 38.9 % (37-47); Hemoglobin 13.5 g/dL (12.0-15.0); Lymphocyte # 1.63 X10^3/ul (0.83-4.51); Lymphocyte % 18.9 % (19-41); Mean Corp Hgb Conc 34.7 g/dL (32-36); Mean Corpuscular Hgb 30.4 pg (27.0-32.0); Mean Corpuscular Volume 87.6 fL (81-99); Mean Platelet Vol. 10.8 fl (6.2-12.0); Monocyte% 9.3 % (0-10); NRBC Flagged by Analyzer 0 % (0-5); Neutrophil # 5.76 X10^3/uL (2.7-7.7); Neutrophil % 66.7 % (47-70); Platelet Count 206 K/mm3 (150-450); RBC Distribution Width CV 13.2 % (11.6-14.6); RBC Distribution Width SD 42.6 fl (35.1-43.9); Red Blood Count 4.44 M/mm3 (4.2-5.4); White Blood Count 8.6 K/mm3 (4.4-11.0)
[2022-02-24 06:59] LABS: Anion Gap 8 (5-15); BUN 24 mg/dL (7-18); BUN/Creat Ratio 22.2 RATIO (10-20); Calcium,Total 9.2 mg/dL (8.5-10.1); Chloride 98 mmol/L (98-107); Creatinine, Serum 1.08 mg/dL (0.55-1.02); EST Glomerular Filtration Rate 51 mL/min (>60); Est Glom Filt Rate - Afr Amer 62 mL/min (>60); Glucose 302 mg/dL (74-106); Potassium 4.3 mmol/L (3.5-5.1); Sodium Level 133 mmol/L (136-145)
[2022-02-24] MEDS: Aspirin E.C. 81 MG Tablet PO (08:20)
[2022-02-24] MEDS: Multivitamin (Healthy Eyes) Capsule 1 CAP PO (08:20)
[2022-02-24] MEDS: 0.9% Saline Lock 10 ML Syringe IV (08:24)
[2022-02-24] MEDS: Ondansetron 4 MG/2 ML Vial IV (08:24)
[2022-02-24] MEDS: Pantoprazole Sodium 40 MG Tablet PO (08:31)
[2022-02-24 08:40] LABS: Bedside Glucose 304 mg/dL (74-106)
[2022-02-24] MEDS: Insulin Lispro 100 UNIT/ML INSULN.PEN SC ×2 (09:44→12:32)
[2022-02-24] MEDS: Insulin Lispro 100 UNIT/ML INSULN.PEN 10 UNIT SC ×2 (09:44→12:32)
[2022-02-24] MEDS: Citalopram 20 MG Tablet PO (10:35)
[2022-02-24] MEDS: Losartan Potassium 50 MG Tablet PO (10:35)
[2022-02-24] MEDS: Isosorbide Mononitrate 30 MG Tablet 15 MG PO (10:35)
[2022-02-24] MEDS: Metoprolol(XL)Succ 25 MG Tablet PO (10:35)
[2022-02-24] MEDS: Clopidogrel Bisulfate 75 MG Tablet PO (10:35)
[2022-02-24] MEDS: Glucerna Shake 120 ML LIQUID PO (10:40)
[2022-02-24] MEDS: Heparin Injection (Vial) 5,000 UNIT/ML VIAL 5000 UNIT SC (10:41)
--- NOTE | 2022-02-24 12:10 | DS.PCM_ITS ---
Providers Date of Admission: 02/23/22 Date of Discharge: 02/24/22 Primary Care Physician: Dr. Rod Dawn MD Consultations 02/22/22 20:54 Consult: Vascular Surgery Routine Consulting Provider: Burak Guerrero Reason for Consult: Carotid stenosis, TIA presentation. EMERGENT Consult: No MD Notified: Yes Date Notified: 02/22/22 Time Notified: 19:06 Method of Notification: ED Physician Initiated 02/23/22 10:26 Consult: Oncology/Hematology Routine Consulting Provider: [facility] Y[facility]iko Reason for Consult: right eye lytic mass, concerning for metastases EMERGENT Consult: No MD Notified: Yes Date Notified: 02/23/22 Time Notified: 10:26 Method of Notification: Verbal Reason For Visit: TIA, CAROTID STENOSIS Diagnosis Discharge Diagnosis (1) Carotid stenosis: Status: Acute Code(s): I65.29 - Occlusion and stenosis of unspecified carotid artery Plan #?TIA * presented with slurred speech and some expressive aphasia * CT of the brain was negative * MRI of the brain showed no evidence of stroke but showed a solid, enhancing, 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 * Oncology consulted and recommends transfer to a tertiary center for biopsy of the lesion. * CT of the chest, abdomen and pelvis showed persistent filling defect in the proximal portion of the right ureter. * 2D echo showed EF of 65% with normal LV size, thickness and diastolic dysfunction * #Right lateral orbital wall mass * as above * # COPD: not in exacerbation. Breathing treatment with bronchodilators. 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 * in light of this new finding of lytic solid enhancing mets in the right orbital wall, will consult urology, vahe since CT pelvis with contrast still shows persistent filling defect in the proximal portion of the right ureter. * #Hypertension: resume BP meds #Type 2 diabetes mellitus: Hold home meds. On home insulin. AccuChecks GONZALEZ S. #Hyperlipidemia: On statin #CKD stage III: #GERD: On PPI #ZULEMA: On CPAP nightly #DVT prophylaxis: Heparin Medications at Discharge Home Medications citalopram 20 mg tablet 20 mg PO DAILY depression 04/28/20 isosorbide mononitrate 30 mg tablet,extended release 24 hr 15 mg PO DAILY blood pressure #45 tabs 06/08/20 aspirin 81 mg tablet,delayed release 81 mg PO DAILY HEALTH MAINTENANCE 06/17/20 insulin detemir U-100 100 unit/mL (3 mL) subcutaneous pen 14 unit SQ QHS DM 07/13/21 losartan 50 mg tablet 50 mg PO DAILY BP 07/13/21 acetaminophen 500 mg tablet 1,000 mg PO Q6H PRN PRN Pain Score 1-3 #0 tabs 08/11/21 atorvastatin 20 mg tablet 20 mg PO QHS 30 days #30 tabs 08/11/21 tramadol 50 mg tablet 50 mg PO Q6H PRN PRN Pain Score 4-10 7 days #28 tabs 08/11/21 acetaminophen 500 mg tablet 1,000 mg PO DAILY 02/22/22 insulin aspart U-100 100 unit/mL (3 mL) subcutaneous pen 8 unit SC LUNCH diabetes 02/22/22 insulin aspart U-100 100 unit/mL (3 mL) subcutaneous pen See Protocol subcut BID@0730,1530 02/22/22 metoprolol succinate 25 mg tablet,extended release 24 hr 25 mg PO BID BP 02/22/22 pantoprazole 20 mg tablet,delayed release 40 mg PO DAILY GERD 02/22/22 peg 400-propylene glycol 0.4 %-0.3 % eye drops (Systane (propylene glycol)) 2 drp EACH EYE TID 02/22/22 psyllium husk 3.4 gram/5.4 gram oral powder (Metamucil) 1 tbsp PO DAILY 02/22/22 tramadol 50 mg tablet 50 mg PO DAILY 02/22/22 vit C 250 mg-vit E 90 mg-zinc 40 mg-copper 1 gv-vncrha-mkmhbi capsule (PreserVision AREDS-2) 1 tab PO BID EYE HEALTH 02/22/22 white petrolatum-mineral oil 83 %-15 % eye ointment (Artificial Eye Lubricant) 1 applic RIGHT EYE QHS 02/22/22 clopidogrel 75 mg tablet 75 mg PO DAILY #30 tabs 02/24/22 Hospital Course Operations None Procedures 2-D Echocardiogram Summary of Care Provided Minutes Spent on Discharge: 45 Hospital Course: Patient is an 86 y/o female with a PMH as outlined who was admitted via the ED on 02/22/2022 with a complaint of slurred speech and transient confusion. She had an associated headache and said she had been having right sided headaches recently for which she had seen her roll winder and was told it had nothing to do with her vision. She had no other neurological symptoms apart from the transient slurred speech and expressive aphasia. CT of the brain showed no acute intracranial pathology and CT of the head and neck showed moderate atherosclerotic change of the left carotid and more severe disease on the right is demonstrating hemodynamically significant stenosis of the right common carotid artery and origin of the right internal carotid artery. She was admitted to be managed for TIA to rule out a stroke. MRi of the brain showed a solid enhancing expansile lytic metastasis in the right lateral orbital wall ext ending posteriorly through the pterion and right greater sphenoid wing, measuring 3.3 x 3cm necrotic projection and protrudes minimally into the anterior wall of he right middle cranial gianfranco and also protrudes minimally in the right temporal fossa, causing medial displacement of the right lateral re ctus muscle and mild anterior displacement of the right orbital globe; there was no evidence of stroke. Oncology was consulted o/a of MRI findings. Furher scrutiny of her chart showed that she had been diagnosed with urothelial carcinoma after she presented with gross hematuria in April 2020, and had urteroscopy and cystoscopy with pyelogram by urology; there were no findings of malignancy but had a urine cystoscopy which showed urothelial carcinoma. She had a follow up cystoscopy and retrograde pyelogram and inspection of the right ureter, upper, mid and lower pole of the right kidney and renal pelvis, with no evidence of abnormalities or tumors or growths with all anatomy normal. CT of the chest, abdomen and pelvis showed persistent filling defect in the proximal portion of the right ureter. I discussed this with urology who stated patient had apparently been lost to follow up. Oncology was consulted, and recommended patient be transferred to a tertiary center for biopsy. Hospitalist tried to transfer to [facility] and per discussion with neurosurgery team, patient wouldnt benefit from biopsy but would need to have the entire mass removed. She will then need to follow up with the neurosurgery/head and neck surgery team on outpatient basis for further workup. Of note, vascular surgery was consulted o/a of CTA head/neck findings and recommended follow up on outpatient basis for right CEA once workup for suspected malignancy was completed. Patient seen and examined prior to discharge. Her daughter was by her bedside. She had no active complaints and review of systems was otherwise negative. Labs and vitals reviewed. Home meds reviewed and reconciled. Physical Exam Const alert, oriented x3 and no apparent distress General Appearance: cooperative, comfortable and well kempt HEENT normocephalic, head/scalp atraumatic, hearing grossly normal bilaterally, moist oral mucous membranes, oropharynx normal and dentition normal HEENT Narrative: right eye mild proptosis Mouth: oral and palatal mucosa normal Eyes PERRL, EOMs intact bilaterally and conjunctivae normal Neck no lymphadenopathy and supple Resp normal respiratory effort, no retractions, no use of accessory muscles and clear to auscultation bilaterally Cardio regular rate, regular rhythm, S1 normal heart sound, S2 normal heart sound and no murmurs GI normal to inspection, nondistended, normoactive bowel sounds, soft to palpation, non-tender and non-distended Extremity normal to inspection, full ROM and no clubbing, cyanosis or edema Skin no rashes or lesions noted, no wounds and skin turgor normal Neuro oriented x3, CN's II-XII intact bilaterally, moves all extremities and no focal motor deficits Sensorium / Orientation: awake and alert Motor Exam: strength 5/5 throughout Psych affect normal Weight / BMI Weight Weight: 115 lb 4.828 oz Body Mass Index (BMI) 24.8 ABG / Lab / Microbiology Data Result Diagrams: 02/24/22 06:30 02/24/22 06:30 Laboratory: Laboratory Results - last 24 hr 02/23/22 11:50: POC Glucose 309 H 02/23/22 16:51: POC Glucose 181 H 02/23/22 21:52: POC Glucose 180 H 02/24/22 06:30: WBC 8.6, RBC 4.44, Hgb 13.5, Hct 38.9, MCV 87.6, MCH 30.4, MCHC 34.7, RDW Std Deviation 42.6, RDW Coeff of Yaneli 13.2, Plt Count 206, MPV 10.8, Immature Gran % (Auto) 0.500, Neut % (Auto) 66.7, Lymph % (Auto) 18.9 L, Nobles % (Auto) 9.3, Eos % (Auto) 3.6, Baso % (Auto) 1.0, Absolute Neuts (auto) 5.8, Absolute Lymphs (auto) 1.63, Nucleated RBC % 0 02/24/22 06:30: Sodium 133 L, Potassium 4.3, Chloride 98, Carbon Dioxide 27.0, Anion Gap 8, BUN 24 H, Creatinine 1.08 H, Estim Creat Clear Calc 30.30, Est GFR (MDRD) Af Amer 62, Est GFR (MDRD) Non-Af 51 L, BUN/Creatinine Ratio 22.2 H, Glucose 302 H, Calcium 9.2 02/24/22 08:12: POC Glucose 304 H Radiography Diagnostic Testing: Radiology Impression Chest/Abdomen/Pelvis CT 02/23/22 12:55 IMPRESSION: Persistent filling defect in the proximal portion of the right ureter. A ureteral carcinoma should be ruled out. Electronically Signed: Colin Mae MD at 13:41 EDT Reading Location ID and State: [address] [place] [address] , Service support , D/C Instructions Discharge Diet: Low fat / Low cholesterol Weight Bearing Status: Weight bearing as tolerated Call your doctor if you observe: Fever of 101 or Higher, Shortness of breath, Dizziness, Swelling in the ankles, Chest pain and Uncontrolled pain Meaningful Use Info Meaningful Use Diagnoses (Choose all that apply): None applicable Discharge Plan Admission Admit Date/Time: 02/23/22 13:56 Primary Reason for Your Visit: LAWANDA Attending Provider: Claribel Kent Primary Care Provider: Rod Dawn Consulting Providers: Burak Guerrero ; Joyce Valero ; Andre Pedraza ; Carina Caldwell ; Gris Hernandez ; Sarabjit Magaña ; Christopher Washington Instructions Patient Instructions: TIA Dc Discharge Orders/Prescriptions Prescriptions: New clopidogrel 75 mg Tablet 75 mg PO DAILY Qty: 30 1RF Continued aspirin 81 mg tablet,delayed release (DR/EC) 81 mg PO DAILY citalopram 20 MG tablet 20 mg PO DAILY insulin detemir U-100 100 UNIT/ML insulin pen 14 unit SQ QHS losartan 50 mg tablet 50 mg PO DAILY Label Comments: TAKE 1 TABLET BY MOUTH TWICE DAILY atorvastatin 20 mg Tablet 20 mg PO QHS 30 Days Qty: 30 0RF tramadol 50 mg Tablet 50 mg PO Q6H PRN PRN (Reason: Pain Score 4-10) 7 Days Qty: 28 0RF acetaminophen 500 mg Tablet 1,000 mg PO Q6H PRN PRN (Reason: Pain Score 1-3) Qty: 0 0RF tramadol 50 mg tablet 50 mg PO DAILY acetaminophen 500 mg Tablet 1,000 mg PO DAILY pantoprazole 20 mg tablet,delayed release (DR/EC) 40 mg PO DAILY insulin aspart U-100 100 unit/mL (3 mL) Insulin Pen See Protocol SUBCUT BID@2710,2902 Protocol: 6. Sliding Scale Insulin Custom Condition: mg/dl range Dose/Route: Number of Units Condition: 251-300 Dose/Route: 4 Condition: 301-350 Dose/Route: 6 Condition: 351-400 Dose/Route: 8 Protocol Text: Custom Sliding Scale Systane (propylene glycol) 0.4-0.3 % drops 2 drp EACH EYE TID Label Comments: 2 drop in both eyes three times a day Artificial Eye Lubricant 83-15 % Ointment 1 applic RIGHT EYE QHS PreserVision AREDS-2 250-90-40-1 mg Capsule 1 tab PO BID Metamucil 3.4 gram/5.4 gram Powder 1 tbsp PO DAILY Rx Instructions: mix into at least 8 oz of water or juice before administering metoprolol succinate 25 mg tablet extended release 24 hr 25 mg PO BID insulin aspart U-100 100 UNITS/ML insulin pen 8 unit SC LUNCH isosorbide mononitrate 30 mg tablet extended release 24 hr 15 mg PO DAILY Qty: 45 3RF Referrals / Follow Up: Zulma Corral MD [Med Staff - Devops Developer] - Within 2 Weeks Burak Guerrero MD [Med Staff - Active Staff] - Within 1 Month Rod Dawn MD [Primary Care Provider] - Usman Gomez MD [Med Staff - Active Staff] - Within 2 Weeks Gris Hernandez MD [Med Staff - Active Staff] - Within 1 Week (to ask Dr Hernandez for referral to recommended neurosurgery/ head and neck surgeon for follow up brain mass) Disposition Disposition (needs filled in before D/C Order can be placed): Assisted Living Charges/Coding Visit Charges Inpatient E&M: 77212 [facility]
[2022-02-24 12:56] LABS: Bedside Glucose 303 mg/dL (74-106)
--- NOTE | 2022-02-24 14:00 | CASEMGMT ---
Patient is ready for discharge. GODWIN contacted [place] via [employer] letting her know patient is ready to be discharged and is it okay for her to return to [place]. GODWIN sent d/c summary to [place] via [facility]. Madison did get back to and say that patient is fine to return and she will do outpatient. Plan: d/c back to [facility]. Patient's daughter transported patient. Tila Hays RUMPER CEM
--- NOTE | 2022-02-24 14:41 | CASEMGMT ---
GODWIN contacted [place] this am to notify [place] patient will likely be returning today. GODWIN also sent updates via [employer]. Tila Hays TELETYPEWRITER OPERATOR CEM
== END 2022-02-24 14:31 | disposition home or self-care (01) | DRG 69 ==
LOC: ED 18:52 → PCU 22:31
PROVIDERS: Admitting Provider Family Medicine; Emergency Provider Emergency Medicine; PCP Family Medicine; Visit Provider Student in an Organized Health Care Education/Training Program
DX: G45.9 Transient cerebral ischemic attack, unspecified (principal); C79.51 Secondary malignant neoplasm of bone; R47.01 Aphasia; C67.9 Malignant neoplasm of bladder, unspecified; E11.22 Type 2 diabetes mellitus with diabetic chronic kidney disease; Z79.4 Long term (current) use of insulin; J44.9 Chronic obstructive pulmonary disease, unspecified; N18.30 Chronic kidney disease, stage 3 unspecified; I25.10 Atherosclerotic heart disease of native coronary artery without angina pectoris; E78.5 Hyperlipidemia, unspecified; G47.33 Obstructive sleep apnea (adult) (pediatric); I12.9 Hypertensive chronic kidney disease with stage 1 through stage 4 chronic kidney disease, or unspecified chronic kidney disease; K21.9 Gastro-esophageal reflux disease without esophagitis; M48.02 Spinal stenosis, cervical region; E78.00 Pure hypercholesterolemia, unspecified; Z80.3 Family history of malignant neoplasm of breast; Z79.2 Long term (current) use of antibiotics; Z87.891 Personal history of nicotine dependence; Z79.82 Long term (current) use of aspirin; Z79.02 Long term (current) use of antithrombotics/antiplatelets; R22.9 Localized swelling, mass and lump, unspecified; R47.81 Slurred speech
CPT/HCPCS: 36415; 70496; 70498; 70553; 71045; 71260; 74177; 80048; 80053; 80061; 82962; 83036; 83735; 84443; 84484; 85025; 85610; 85730; 92610; 93005; 93306; 93880; 94762; 97162; 97166; 97530; 97535; 97802; 99285; A9575; J7030; Q9967; A4216; J2405

== ENCOUNTER → 2022-03-04 | Outpatient (REF) | payer MEDICARE, OTHER, SELFPAY ==
[2022-03-04 06:46] LABS: Hematocrit 34.2 % (37-47); Hemoglobin 11.6 g/dL (12.0-15.0); Mean Corp Hgb Conc 33.9 g/dL (32-36); Mean Corpuscular Hgb 30.5 pg (27.0-32.0); Mean Platelet Vol. 11.4 fl (6.2-12.0); Platelet Count 208 K/mm3 (150-450); RBC Distribution Width CV 13.1 % (11.6-14.6); RBC Distribution Width SD 43.1 fl (35.1-43.9); White Blood Count 7.1 K/mm3 (4.4-11.0)
[2022-03-04 07:44] LABS: Anion Gap 6 (5-15); BUN 26 mg/dL (7-18); BUN/Creat Ratio 27.9 RATIO (10-20); Calcium,Total 8.9 mg/dL (8.5-10.1); Chloride 102 mmol/L (98-107); Cholesterol 124 mg/dL (200); Creatinine, Serum 0.93 mg/dL (0.55-1.02); EST Glomerular Filtration Rate 60 mL/min (>60); Est Glom Filt Rate - Afr Amer 73 mL/min (>60); Glucose 202 mg/dL (74-106); High Density Lipoprotein 33 mg/dL; Potassium 4.6 mmol/L (3.5-5.1); Sodium Level 136 mmol/L (136-145); Triglycerides 244 mg/dL; Very Low Density Lipoprotein 49 mg/dL (5-40)
== END ==
LOC: OLS.WHLTSB 05:00
PROVIDERS: PCP Family Medicine; Visit Provider Family Medicine
DX: E78.5 Hyperlipidemia, unspecified (principal); E11.9 Type 2 diabetes mellitus without complications; G45.9 Transient cerebral ischemic attack, unspecified; J45.998 Other asthma; R19.7 Diarrhea, unspecified; R11.0 Nausea; R12 Heartburn; H04.123 Dry eye syndrome of bilateral lacrimal glands; Z74.1 Need for assistance with personal care
CPT/HCPCS: 36415; 80048; 80061; 83036; 85027

== ENCOUNTER → 2022-03-21 | Outpatient (REF) | payer MEDICARE, OTHER, SELFPAY | LOC: OLS.WHLTSB 20:20 | PROVIDERS: PCP Family Medicine; Visit Provider Internal Medicine | DX: R35.0 Frequency of micturition (principal); R39.14 Feeling of incomplete bladder emptying; G45.9 Transient cerebral ischemic attack, unspecified; J45.998 Other asthma; R19.7 Diarrhea, unspecified; R11.0 Nausea; R12 Heartburn; Z74.1 Need for assistance with personal care | CPT/HCPCS: 87086; 87088 ==

== ENCOUNTER → 2022-05-06 | Outpatient (REF) | payer MEDICARE, OTHER, SELFPAY ==
[2022-05-06 08:42] LABS: Absolute Lymphocyte Count 2.01 X10^3/uL (0.83-4.51); Absolute Neutrophil Count 4.5 X10^3/uL (2.0-7.7); Basophil# 0.08 X10^3/uL; Eosinophil# 0.54 X10^3/uL; Eosinophils% 6.6 % (0-5); Hematocrit 32.9 % (37-47); Hemoglobin 10.9 g/dL (12.0-15.0); Lymphocyte # 2.01 X10^3/ul (0.83-4.51); Lymphocyte % 24.7 % (19-41); Mean Corp Hgb Conc 33.1 g/dL (32-36); Mean Corpuscular Hgb 30.2 pg (27.0-32.0); Mean Corpuscular Volume 91.1 fL (81-99); Monocyte# 0.93 X10^3/uL; Monocyte% 11.4 % (0-10); NRBC Flagged by Analyzer 0 % (0-5); Neutrophil # 4.52 X10^3/uL (2.7-7.7); Neutrophil % 55.6 % (47-70); Platelet Count 248 K/mm3 (150-450); RBC Distribution Width CV 13.3 % (11.6-14.6); RBC Distribution Width SD 44.2 fl (35.1-43.9); Red Blood Count 3.61 M/mm3 (4.2-5.4); White Blood Count 8.1 K/mm3 (4.4-11.0)
[2022-05-06 08:49] LABS: Anion Gap 3 (5-15); BUN 21 mg/dL (7-18); BUN/Creat Ratio 25.6 RATIO (10-20); Calcium,Total 8.9 mg/dL (8.5-10.1); Chloride 107 mmol/L (98-107); Creatinine, Serum 0.82 mg/dL (0.55-1.02); EST Glomerular Filtration Rate 70 mL/min (>60); Est Glom Filt Rate - Afr Amer 85 mL/min (>60); Glucose 85 mg/dL (74-106); Potassium 4.3 mmol/L (3.5-5.1); Sodium Level 140 mmol/L (136-145)
== END ==
LOC: OLS.WHLTSB 05:00
PROVIDERS: PCP Internal Medicine; Visit Provider Nurse Practitioner Adult Health
DX: D64.9 Anemia, unspecified (principal); N39.0 Urinary tract infection, site not specified; R35.0 Frequency of micturition; R39.14 Feeling of incomplete bladder emptying; J45.998 Other asthma; R19.7 Diarrhea, unspecified; Z86.73 Personal history of transient ischemic attack (TIA), and cerebral infarction without residual deficits
CPT/HCPCS: 36415; 80048; 85025

== ENCOUNTER → 2022-05-25 | Outpatient (REF) | payer MEDICARE, OTHER, SELFPAY ==
[2022-05-25 08:21] LABS: Mucous, Urine 0 SEEN /hpf (<or=2+); Squamous Epithelial Cells - UA 0 SEEN /hpf (5-10)
[2022-05-25 08:41] LABS: Color, Urine Yellow (Yellow); Glucose, Dipstick 100 mg/dl (Normal); Ketone-Dipstick Negative (Negative); Leukocyte Esterase-Dipstick 500 /ul (Negative); Nitrite-Dipstick Negative (Negative); Occult Blood-Urine 25 /ul (Negative); Protein-Dipstick 15 mg/dl (Negative); Urine Bilirubin Dipstick Negative (Negative); Urine Clarity Clear (Clear); Urine Urobilinogen Normal (Normal)
[2022-05-25 08:49] LABS: White Blood Cells 10-25 SEEN /hpf (0-5)
[2022-05-25 08:50] LABS: Bacteria 1+ /hpf (None Seen); Red Blood Cells-Urine 0-5 SEEN /hpf (0-5)
== END ==
LOC: OLS.WHLTSB 05:00
PROVIDERS: PCP Internal Medicine; Visit Provider Internal Medicine
DX: R30.0 Dysuria (principal)
CPT/HCPCS: 81001; 87077; 87086; 87088; 87186

== ENCOUNTER → 2022-06-21 | Outpatient (CLI) | payer MEDICARE, SELFPAY | END | disposition home or self-care (01) | LOC: CT 16:31 | PROVIDERS: PCP Internal Medicine; Visit Provider Nurse Practitioner Gerontology | DX: R06.02 Shortness of breath (principal); R07.9 Chest pain, unspecified ==

== ENCOUNTER → 2022-06-21 | Outpatient (CLI) | payer MEDICARE, MEDICAID, SELFPAY ==
--- NOTE | 2022-06-21 15:15 | RAD_ITS ---
EXAM: XR CHEST, 2 VIEWS CLINICAL INDICATION: Dyspnea TECHNIQUE: Frontal and lateral views of the chest. This report was created using [employer] report generation technology. COMPARISON: 02/22/2022 FINDINGS: LUNGS AND PLEURAL SPACES: Lungs are mildly hyperinflated. No pneumothorax. No effusion. HEART: Unremarkable. Cardiac silhouette not enlarged. MEDIASTINUM: Central airways and mediastinal contour are unremarkable. BONES/JOINTS: Unremarkable. SOFT TISSUES: Unremarkable. RAD/Chest PA and Lateral IMPRESSION: Mild pulmonary hyperinflation with no acute pulmonary abnormality. Electronically Signed: Logan Everett MD at 18:38 EST ,
[2022-06-21 15:41] LABS: Absolute Lymphocyte Count 2.17 X10^3/uL (0.83-4.51); Absolute Neutrophil Count 4.8 X10^3/uL (2.0-7.7); Basophil# 0.06 X10^3/uL; Basophil% 0.7 % (0-1); Eosinophils% 3.7 % (0-5); Hematocrit 36.8 % (37-47); Hemoglobin 12.1 g/dL (12.0-15.0); Lymphocyte # 2.17 X10^3/ul (0.83-4.51); Mean Corp Hgb Conc 32.9 g/dL (32-36); Mean Corpuscular Hgb 29.6 pg (27.0-32.0); Mean Platelet Vol. 10.6 fl (6.2-12.0); Monocyte# 0.71 X10^3/uL; Monocyte% 8.8 % (0-10); NRBC Flagged by Analyzer 0 % (0-5); Neutrophil # 4.75 X10^3/uL (2.7-7.7); Neutrophil % 59.2 % (47-70); Platelet Count 228 K/mm3 (150-450); RBC Distribution Width CV 12.8 % (11.6-14.6); RBC Distribution Width SD 42.5 fl (35.1-43.9); Red Blood Count 4.09 M/mm3 (4.2-5.4)
[2022-06-21 15:58] LABS: D-Dimer Quantitative (DVT/PE) 1.07 FEU/ug/m (0.27-0.49)
[2022-06-21 16:24] LABS: Anion Gap 9 (5-15); BUN 30 mg/dL (7-18); BUN/Creat Ratio 21.4 RATIO (10-20); Calcium,Total 8.7 mg/dL (8.5-10.1); Chloride 101 mmol/L (98-107); EST Glomerular Filtration Rate 38 mL/min (>60); Est Glom Filt Rate - Afr Amer 46 mL/min (>60); Glucose 201 mg/dL (74-106); Potassium 4.6 mmol/L (3.5-5.1); Sodium Level 136 mmol/L (136-145)
--- NOTE | 2022-06-21 16:32 | CT_ITS ---
EXAM: CT ANGIOGRAPHY CHEST WITHOUT AND WITH INTRAVENOUS CONTRAST CLINICAL INDICATION: Suspect PE: postop, elevated D-Dimer, SOB, CP TECHNIQUE: Helically acquired angiography images were obtained of the chest without and with intravenous contrast. This CT exam was performed using one or more of the following dose reduction techniques: automated exposure control, adjustment of the mA and/or kV according to patient size, and/or use of iterative reconstruction technique. This report was created using [employer] report generation technology. MIP reconstructed images were created and reviewed. CONTRAST: IV 100mL Isovue-370 COMPARISON: 02/23/2022 FINDINGS: PULMONARY ARTERIES: Unremarkable. Normal in caliber. No evidence of pulmonary embolism. AORTA: Unremarkable. Normal in caliber. No evidence of dissection. GREAT VESSELS OF AORTIC ARCH: Unremarkable. Normal in caliber. No evidence of dissection. INFERIOR VENA CAVA: There is reflux of contrast into the inferior vena cava which may indicate decreased cardiac output. There is minimal scarring in the right middle lobe. There is a noncalcified nodule in the right middle lobe anteriorly that measures 4 x 5 mm and is unchanged from the reference examination. LUNGS AND PLEURAL SPACES: See above. HEART: See above. MEDIASTINUM: Unremarkable. No mediastinal or hilar adenopathy. Esophagus is unremarkable. No hiatal hernia. THYROID: Unremarkable. No thyroid lesions. BONES/JOINTS: Unremarkable. No suspicious lytic or blastic abnormality. CT/CTA Chest W/WO Contrast IMPRESSION: 1. No evidence of pulmonary embolus. 2. Stable noncalcified nodule in the right middle lobe. There is no acute pulmonary abnormality. 3. Reflux of contrast into the inferior vena cava which may be indicate decreased cardiac output. Electronically Signed: Logan Everett MD at 17:15 EST ,
[2022-06-21 16:57] LABS: BNP,B-Type NATRIURETIC PEPTIDE 177.8 pg/mL (0-100)
== END | disposition home or self-care (01) ==
PROVIDERS: PCP Internal Medicine; Referring Provider Nurse Practitioner Gerontology; Visit Provider Nurse Practitioner Gerontology
DX: R91.1 Solitary pulmonary nodule (principal); R07.9 Chest pain, unspecified; R06.02 Shortness of breath; R79.89 Other specified abnormal findings of blood chemistry; Z98.890 Other specified postprocedural states; Z86.018 Personal history of other benign neoplasm
CPT/HCPCS: 36415; 71046; 71275; 80048; 83880; 85025; 85379; Q9967

== ENCOUNTER → 2022-06-29 | Outpatient (REF) | payer MEDICARE, OTHER, SELFPAY ==
[2022-06-29 09:16] LABS: Anion Gap 7 (5-15); BUN 33 mg/dL (7-18); BUN/Creat Ratio 29.5 RATIO (10-20); Calcium,Total 9.5 mg/dL (8.5-10.1); Chloride 103 mmol/L (98-107); Creatinine, Serum 1.12 mg/dL (0.55-1.02); EST Glomerular Filtration Rate 49 mL/min (>60); Est Glom Filt Rate - Afr Amer 59 mL/min (>60); Glucose 307 mg/dL (74-106); Potassium 4.9 mmol/L (3.5-5.1); Sodium Level 135 mmol/L (136-145)
== END ==
LOC: OLS.WHLTSB 05:00
PROVIDERS: PCP Internal Medicine; Visit Provider Internal Medicine
DX: I10 Essential (primary) hypertension (principal); K64.9 Unspecified hemorrhoids; F41.9 Anxiety disorder, unspecified; D64.9 Anemia, unspecified; M62.561 Muscle wasting and atrophy, not elsewhere classified, right lower leg; M62.562 Muscle wasting and atrophy, not elsewhere classified, left lower leg
CPT/HCPCS: 36415; 80048

== ENCOUNTER → 2022-08-27 | Outpatient (REF) | payer MEDICARE, OTHER, SELFPAY ==
[2022-08-27 11:27] LABS: Mucous, Urine 0 SEEN /hpf (<or=2+); Red Blood Cells-Urine 0 SEEN /hpf (0-5); Squamous Epithelial Cells - UA 0 SEEN /hpf (5-10)
[2022-08-27 11:39] LABS: Color, Urine Yellow (Yellow); Glucose, Dipstick Normal (Normal); Ketone-Dipstick Negative (Negative); Leukocyte Esterase-Dipstick 500 /ul (Negative); Nitrite-Dipstick Negative (Negative); Occult Blood-Urine 50 /ul (Negative); Protein-Dipstick 100 mg/dl (Negative); Urine Bilirubin Dipstick Negative (Negative); Urine Clarity Cloudy (Clear); Urine Urobilinogen Normal (Normal)
[2022-08-27 11:52] LABS: Bacteria 2+ /hpf (None Seen); White Blood Cells >100 SEEN /hpf (0-5)
== END ==
LOC: OLS.WHLTSB 10:00
PROVIDERS: PCP Internal Medicine; Visit Provider Internal Medicine
DX: N39.0 Urinary tract infection, site not specified (principal)
CPT/HCPCS: 81001; 87077; 87086; 87088; 87186

== ENCOUNTER → 2022-09-02 | Outpatient (REF) | payer MEDICARE, OTHER, SELFPAY ==
[2022-09-02 07:02] LABS: Hematocrit 35.1 % (37-47); Hemoglobin 11.5 g/dL (12.0-15.0); Mean Corp Hgb Conc 32.8 g/dL (32-36); Mean Corpuscular Hgb 29.4 pg (27.0-32.0); Mean Corpuscular Volume 89.8 fL (81-99); Mean Platelet Vol. 10.7 fl (6.2-12.0); Platelet Count 237 K/mm3 (150-450); RBC Distribution Width CV 13.3 % (11.6-14.6); RBC Distribution Width SD 43.7 fl (35.1-43.9); Red Blood Count 3.91 M/mm3 (4.2-5.4); White Blood Count 7.3 K/mm3 (4.4-11.0)
[2022-09-02 07:30] LABS: Anion Gap 5 (5-15); BUN 19 mg/dL (7-18); BUN/Creat Ratio 27.1 RATIO (10-20); Calcium,Total 8.8 mg/dL (8.5-10.1); Chloride 104 mmol/L (98-107); Cholesterol 105 mg/dL (200); EST Glomerular Filtration Rate 84 mL/min (>60); Est Glom Filt Rate - Afr Amer 101 mL/min (>60); Glucose 116 mg/dL (74-106); High Density Lipoprotein 33 mg/dL; Sodium Level 137 mmol/L (136-145); Triglycerides 172 mg/dL; Very Low Density Lipoprotein 34 mg/dL (5-40)
[2022-09-02 07:53] LABS: Hemoglobin A1c 9.6 % (3.8-5.6)
== END ==
LOC: OLS.WHLTSB 05:00
PROVIDERS: PCP Internal Medicine; Visit Provider Internal Medicine
DX: E78.5 Hyperlipidemia, unspecified (principal); E11.9 Type 2 diabetes mellitus without complications; D32.9 Benign neoplasm of meninges, unspecified; H02.122 Mechanical ectropion of right lower eyelid; H05.20 Unspecified exophthalmos; H25.813 Combined forms of age-related cataract, bilateral; H50.21 Vertical strabismus, right eye; I65.23 Occlusion and stenosis of bilateral carotid arteries
CPT/HCPCS: 36415; 80048; 80061; 83036; 85027

== ENCOUNTER → 2022-10-10 | Outpatient (REF) | payer MEDICARE, OTHER, SELFPAY ==
[2022-10-10 09:10] LABS: Anion Gap 7 (5-15); BUN 25 mg/dL (7-18); BUN/Creat Ratio 32.4 RATIO (10-20); Calcium,Total 9.1 mg/dL (8.5-10.1); Chloride 102 mmol/L (98-107); Creatinine, Serum 0.77 mg/dL (0.55-1.02); EST Glomerular Filtration Rate 75 mL/min (>60); Est Glom Filt Rate - Afr Amer 91 mL/min (>60); Glucose 254 mg/dL (74-106); Potassium 4.3 mmol/L (3.5-5.1); Sodium Level 137 mmol/L (136-145)
== END ==
LOC: OLS.WHLTSB 04:00
PROVIDERS: PCP Internal Medicine; Referring Provider Internal Medicine; Visit Provider Internal Medicine
DX: R60.9 Edema, unspecified (principal)
CPT/HCPCS: 36415; 80048

== ENCOUNTER → 2022-12-25 | Outpatient (REF) | payer MEDICARE, OTHER, MEDICAID, SELFPAY ==
[2022-12-27 10:23] LABS: Color, Urine Yellow (Yellow); Glucose, Dipstick Normal (Normal); Ketone-Dipstick Negative (Negative); Leukocyte Esterase-Dipstick 500 /ul (Negative); Nitrite-Dipstick Negative (Negative); Occult Blood-Urine 50 /ul (Negative); Protein-Dipstick 30 mg/dl (Negative); Urine Bilirubin Dipstick Negative (Negative); Urine Clarity Sl. Cloudy (Clear); Urine Urobilinogen Normal (Normal)
== END ==
LOC: OLS.WHLTSB 17:00
PROVIDERS: PCP Internal Medicine; Visit Provider Internal Medicine
DX: N39.0 Urinary tract infection, site not specified (principal)
CPT/HCPCS: 81002; 87077; 87086; 87088; 87186

== ENCOUNTER → 2023-01-18 | Outpatient (REF) | payer MEDICARE, OTHER, MEDICAID, SELFPAY ==
[2023-01-18 08:04] LABS: AST(SGOT) 20 U/L (15-37); Alanine Aminotransfer ALT/SGPT 24 U/L (13-56); CPK Total, Creatine Kinase 98 U/L (26-192); Cholesterol 135 mg/dL (200); High Density Lipoprotein 34 mg/dL; Triglycerides 261 mg/dL; Very Low Density Lipoprotein 52 mg/dL (5-40)
== END ==
LOC: OLS.WHLTSB 05:00
PROVIDERS: PCP Internal Medicine; Visit Provider Internal Medicine
DX: D32.9 Benign neoplasm of meninges, unspecified (principal); N39.0 Urinary tract infection, site not specified; E11.3293 Type 2 diabetes mellitus with mild nonproliferative diabetic retinopathy without macular edema, bilateral
CPT/HCPCS: 36415; 80061; 82550; 84450; 84460

== ENCOUNTER → 2023-01-26 | Outpatient (CLI) | payer MEDICARE, OTHER, MEDICAID, SELFPAY ==
--- NOTE | 2023-01-26 13:43 | CDU_ITS ---
Reason For Study: Bilateral Carotid Stenosis Rt. Velocities/BP Lt. Velocities/BP Prox CCA 72.0/0.0 cm/sec. Prox CCA 75.4/9.5 cm/sec. Mid CCA 75.6/10.6 cm/sec. Mid CCA 66.6/10.6 cm/sec. Dist CCA 60.9/9.3 cm/sec. Dist CCA 57.8/12.7 cm/sec. Prox ICA 212.1/44.0 cm/sec. Prox ICA 65.5/10.6 cm/sec. Mid ICA 123.5/15.7 cm/sec. Mid ICA 85.1/13.9 cm/sec. Dist ICA 43.2/8.4 cm/sec. Dist ICA 130.8/17.5 cm/sec. Rt. ICA/CCA = 2.8. Lt. ICA/CCA = 2.0. Prox ECA 71.4/0.0 cm/sec. Prox ECA 157.1/0.0 cm/sec. Rt. Vert. 36.7/6.1 cm/sec. Lt. Vert. 24.6/5.4 cm/sec. Right Extracranial There is heterogeneous, irregular atherosclerotic plaque noted in the right common carotid artery. There is heterogeneous, irregular atherosclerotic plaque noted in the right internal carotid artery. The atherosclerotic plaque causes acoustic shadowing. There is heterogeneous, irregular atherosclerotic plaque noted in the right external carotid artery. The atherosclerotic plaque causes acoustic shadowing. Antegrade flow is noted in the right vertebral artery. Left Extracranial There is heterogeneous, smooth atherosclerotic plaque noted in the left common carotid artery. There is heterogeneous, irregular atherosclerotic plaque noted in the left internal carotid artery. The atherosclerotic plaque causes acoustic shadowing. There is heterogeneous, irregular atherosclerotic plaque noted in the left external carotid artery. The atherosclerotic plaque causes acoustic shadowing. Antegrade flow is noted in the left vertebral artery. Procedure Carotid Duplex [id number]. This is a Carotid Duplex examination using B-mode, color flow and specral Doppler. The exam was diagnostic. Exam performed in department. VL/Carotid Duplex Ultrasound Interpretation Summary Moderate (50-69%) stenosis right extracranial internal carotid. Moderate (50-69%) stenosis left extracranial internal carotid. Patent and antegrade vertebrals bilaterally. Ordering Physician: Gricel Morris Referring Physician: Faviola Davis Performed By: Leroy Brooks RVT
== END | disposition home or self-care (01) ==
PROVIDERS: PCP Internal Medicine; Referring Provider Internal Medicine Cardiovascular Disease; Visit Provider Internal Medicine Cardiovascular Disease
DX: I65.23 Occlusion and stenosis of bilateral carotid arteries (principal); I49.1 Atrial premature depolarization; I25.10 Atherosclerotic heart disease of native coronary artery without angina pectoris; E78.5 Hyperlipidemia, unspecified
CPT/HCPCS: 93880

== ENCOUNTER → 2023-02-08 | Outpatient (REF) | payer MEDICARE, OTHER, MEDICAID, SELFPAY ==
[2023-02-09 09:56] LABS: Color, Urine Yellow (Yellow); Glucose, Dipstick Normal (Normal); Ketone-Dipstick Negative (Negative); Leukocyte Esterase-Dipstick 500 /ul (Negative); Nitrite-Dipstick Positive (Negative); Occult Blood-Urine 250 /ul (Negative); Protein-Dipstick 100 mg/dl (Negative); Urine Bilirubin Dipstick Negative (Negative); Urine Clarity Cloudy (Clear); Urine Urobilinogen Normal (Normal)
== END ==
LOC: OLS.WHLTSB 16:45
PROVIDERS: PCP Internal Medicine; Visit Provider Nurse Practitioner Adult Health
DX: R30.0 Dysuria (principal)
CPT/HCPCS: 81002; 87077; 87086; 87088; 87186

== ENCOUNTER → 2023-02-20 | Outpatient (REF) | payer MEDICARE, OTHER, MEDICAID, SELFPAY | LOC: OLS.WHLTSB 14:30 | PROVIDERS: PCP Internal Medicine; Visit Provider Internal Medicine | DX: N39.0 Urinary tract infection, site not specified (principal) | CPT/HCPCS: 87086; 87088 ==

== ENCOUNTER → 2023-03-03 | Outpatient (REF) | payer MEDICARE, OTHER, MEDICAID, SELFPAY ==
[2023-03-03 09:04] LABS: Hematocrit 38.9 % (37-47); Hemoglobin 12.8 g/dL (12.0-15.0); Mean Corp Hgb Conc 32.9 g/dL (32-36); Mean Corpuscular Volume 91.1 fL (81-99); Mean Platelet Vol. 11.1 fl (6.2-12.0); Platelet Count 196 K/mm3 (150-450); RBC Distribution Width CV 12.9 % (11.6-14.6); RBC Distribution Width SD 42.5 fl (35.1-43.9); Red Blood Count 4.27 M/mm3 (4.2-5.4); White Blood Count 6.4 K/mm3 (4.4-11.0)
[2023-03-03 09:18] LABS: Anion Gap 2 (5-15); BUN 25 mg/dL (7-18); BUN/Creat Ratio 30.2 RATIO (10-20); Chloride 106 mmol/L (98-107); Cholesterol 139 mg/dL (200); Creatinine, Serum 0.83 mg/dL (0.55-1.02); EST Glomerular Filtration Rate 69 mL/min (>60); Est Glom Filt Rate - Afr Amer 84 mL/min (>60); Glucose 239 mg/dL (74-106); High Density Lipoprotein 41 mg/dL; Potassium 4.6 mmol/L (3.5-5.1); Sodium Level 139 mmol/L (136-145); Triglycerides 186 mg/dL; Very Low Density Lipoprotein 37 mg/dL (5-40)
[2023-03-03 09:31] LABS: Hemoglobin A1c 8.9 % (3.8-5.6)
== END ==
LOC: OLS.WHLTSB 05:00
PROVIDERS: PCP Internal Medicine; Visit Provider Internal Medicine
DX: E78.5 Hyperlipidemia, unspecified (principal); D32.9 Benign neoplasm of meninges, unspecified; H02.122 Mechanical ectropion of right lower eyelid; H05.20 Unspecified exophthalmos; H25.813 Combined forms of age-related cataract, bilateral; I65.23 Occlusion and stenosis of bilateral carotid arteries; E11.9 Type 2 diabetes mellitus without complications
CPT/HCPCS: 36415; 80048; 80061; 83036; 85027

== ENCOUNTER → 2023-03-11 | Outpatient (REF) | payer MEDICARE, OTHER, MEDICAID, SELFPAY ==
[2023-03-11 13:55] LABS: Bacteria 0 SEEN /hpf (None Seen); Mucous, Urine 0 SEEN /hpf (<or=2+); Red Blood Cells-Urine 0 SEEN /hpf (0-5); Squamous Epithelial Cells - UA 0 SEEN /hpf (5-10)
[2023-03-11 14:03] LABS: Color, Urine Yellow (Yellow); Glucose, Dipstick Normal (Normal); Ketone-Dipstick Negative (Negative); Leukocyte Esterase-Dipstick 500 /ul (Negative); Nitrite-Dipstick Negative (Negative); Occult Blood-Urine 250 /ul (Negative); Protein-Dipstick 100 mg/dl (Negative); Specific Gravity, Urine 1.005 (1.002-1.030); Urine Bilirubin Dipstick Negative (Negative); Urine Clarity Sl. Cloudy (Clear); Urine Urobilinogen Normal (Normal); Urine pH 6.5 (5.0 - 8.0)
[2023-03-11 14:10] LABS: White Blood Cells 50-100 SEEN /hpf (0-5)
== END ==
LOC: OLS.WHLTSB 02:30
PROVIDERS: Referring Provider Nurse Practitioner Adult Health; Visit Provider Nurse Practitioner Adult Health
DX: N39.0 Urinary tract infection, site not specified (principal)
CPT/HCPCS: 81001; 87077; 87086; 87088; 87186

== ENCOUNTER → 2023-03-14 | Outpatient (REF) | payer MEDICARE, OTHER, MEDICAID, SELFPAY ==
[2023-03-15 08:41] LABS: Mucous, Urine 0 SEEN /hpf (<or=2+)
[2023-03-15 09:42] LABS: Color, Urine Yellow (Yellow); Glucose, Dipstick Normal (Normal); Ketone-Dipstick Negative (Negative); Leukocyte Esterase-Dipstick 500 /ul (Negative); Nitrite-Dipstick Negative (Negative); Occult Blood-Urine 150 /ul (Negative); Protein-Dipstick 100 mg/dl (Negative); Urine Bilirubin Dipstick Negative (Negative); Urine Clarity Cloudy (Clear); Urine Urobilinogen Normal (Normal)
[2023-03-15 09:56] LABS: Bacteria 1+ /hpf (None Seen); Red Blood Cells-Urine 10-25 SEEN /hpf (0-5); White Blood Cells 25-50 SEEN /hpf (0-5)
[2023-03-15 09:57] LABS: Squamous Epithelial Cells - UA 0-5 SEEN /hpf (5-10)
== END ==
LOC: OLS.WHLTSB 16:00
PROVIDERS: PCP Internal Medicine; Visit Provider Internal Medicine
DX: N39.0 Urinary tract infection, site not specified (principal)
CPT/HCPCS: 81001; 87077; 87086; 87088; 87186

== ENCOUNTER → 2023-04-19 | Outpatient (REF) | payer MEDICARE, OTHER, MEDICAID, SELFPAY ==
[2023-04-20 07:42] LABS: Color, Urine Yellow (Yellow); Glucose, Dipstick Normal (Normal); Ketone-Dipstick Negative (Negative); Leukocyte Esterase-Dipstick 500 /ul (Negative); Nitrite-Dipstick Negative (Negative); Occult Blood-Urine 150 /ul (Negative); Protein-Dipstick 30 mg/dl (Negative); Urine Bilirubin Dipstick Negative (Negative); Urine Clarity Sl. Cloudy (Clear); Urine Urobilinogen Normal (Normal)
== END ==
LOC: OLS.WHLTSB 16:00
PROVIDERS: PCP Internal Medicine; Visit Provider Internal Medicine
DX: N39.0 Urinary tract infection, site not specified (principal)
CPT/HCPCS: 81002; 87086; 87088

== ENCOUNTER → 2023-09-01 | Outpatient (REF) | payer MEDICARE, MEDICAID, SELFPAY ==
[2023-09-01 08:56] LABS: Hematocrit 36.8 % (37-47); Hemoglobin 12.2 g/dL (12.0-15.0); Mean Corp Hgb Conc 33.2 g/dL (32-36); Mean Corpuscular Hgb 29.6 pg (27.0-32.0); Mean Corpuscular Volume 89.3 fL (81-99); Mean Platelet Vol. 11.3 fl (6.2-12.0); Platelet Count 248 K/mm3 (150-450); RBC Distribution Width CV 12.8 % (11.6-14.6); RBC Distribution Width SD 41.6 fl (35.1-43.9); Red Blood Count 4.12 M/mm3 (4.2-5.4); White Blood Count 7.6 K/mm3 (4.4-11.0)
[2023-09-01 09:40] LABS: Anion Gap 2 (5-15); BUN 31 mg/dL (7-18); BUN/Creat Ratio 29.2 RATIO (10-20); Chloride 107 mmol/L (98-107); Cholesterol 294 mg/dL (200); Creatinine, Serum 1.06 mg/dL (0.55-1.02); EST Glomerular Filtration Rate 52 mL/min (>60); Est Glom Filt Rate - Afr Amer 63 mL/min (>60); Glucose 200 mg/dL (74-106); High Density Lipoprotein 35 mg/dL; Potassium 5.2 mmol/L (3.5-5.1); Sodium Level 134 mmol/L (136-145); Triglycerides 479 mg/dL
[2023-09-01 09:58] LABS: Hemoglobin A1c 8.3 % (3.8-5.6)
== END ==
LOC: OLS.WHLTSB 05:00
PROVIDERS: PCP Internal Medicine; Visit Provider Internal Medicine
DX: E78.5 Hyperlipidemia, unspecified (principal); D32.9 Benign neoplasm of meninges, unspecified; E11.9 Type 2 diabetes mellitus without complications
CPT/HCPCS: 36415; 80048; 80061; 83036; 85027

== ENCOUNTER → 2023-09-05 | Outpatient (REF) | payer MEDICARE, MEDICAID, SELFPAY ==
[2023-09-05 08:13] LABS: Potassium 5.1 mmol/L (3.5-5.1)
== END ==
LOC: OLS.WHLTSB 05:00
PROVIDERS: PCP Internal Medicine; Visit Provider Internal Medicine
DX: E87.6 Hypokalemia (principal); E11.3293 Type 2 diabetes mellitus with mild nonproliferative diabetic retinopathy without macular edema, bilateral
CPT/HCPCS: 36415; 84132

== ENCOUNTER → 2023-09-22 | Outpatient (REF) | payer MEDICARE, MEDICAID, SELFPAY ==
[2023-09-22 07:42] LABS: Absolute Lymphocyte Count 1.64 X10^3/uL (0.83-4.51); Absolute Neutrophil Count 6.4 X10^3/uL (2.0-7.7); Basophil# 0.08 X10^3/uL; Basophil% 0.8 % (0-1); Eosinophil# 0.39 X10^3/uL; Eosinophils% 4.1 % (0-5); Hematocrit 34.6 % (37-47); Hemoglobin 11.2 g/dL (12.0-15.0); Lymphocyte # 1.64 X10^3/ul (0.83-4.51); Lymphocyte % 17.1 % (19-41); Mean Corp Hgb Conc 32.4 g/dL (32-36); Mean Corpuscular Hgb 29.3 pg (27.0-32.0); Mean Corpuscular Volume 90.6 fL (81-99); Mean Platelet Vol. 11.5 fl (6.2-12.0); Monocyte# 0.97 X10^3/uL; Monocyte% 10.1 % (0-10); NRBC Flagged by Analyzer 0.2 % (0-5); Neutrophil # 6.43 X10^3/uL (2.7-7.7); Neutrophil % 67.1 % (47-70); Platelet Count 245 K/mm3 (150-450); RBC Distribution Width CV 13.4 % (11.6-14.6); RBC Distribution Width SD 44.4 fl (35.1-43.9); Red Blood Count 3.82 M/mm3 (4.2-5.4); White Blood Count 9.6 K/mm3 (4.4-11.0)
[2023-09-22 09:02] LABS: AST(SGOT) 20 U/L (15-37); Alanine Aminotransfer ALT/SGPT 15 U/L (13-56); Albumin, Serum 3.2 g/dL (3.2-5.0); Alkaline Phosphatase 55 U/L (45-117); Anion Gap 9 (5-15); BUN 48 mg/dL (7-18); Calcium,Total 8.8 mg/dL (8.5-10.1); Chloride 106 mmol/L (98-107); Creatinine, Serum 1.55 mg/dL (0.55-1.02); EST Glomerular Filtration Rate 34 mL/min (>60); Est Glom Filt Rate - Afr Amer 41 mL/min (>60); Globulin 3.1 g/dL (2.2-4.2); Glucose 146 mg/dL (74-106); Lipase 13 U/L (13-75); Potassium 4.4 mmol/L (3.5-5.1); Protein, Total 6.3 g/dL (6.4-8.2); Sodium Level 134 mmol/L (136-145)
== END ==
LOC: OLS.WHLTSB 05:00
PROVIDERS: PCP Internal Medicine; Visit Provider Internal Medicine
DX: R19.7 Diarrhea, unspecified (principal); E11.3293 Type 2 diabetes mellitus with mild nonproliferative diabetic retinopathy without macular edema, bilateral; E87.6 Hypokalemia
CPT/HCPCS: 36415; 80053; 83690; 85025

== ENCOUNTER → 2023-10-11 | Outpatient (REF) | payer MEDICARE, MEDICAID, SELFPAY ==
[2023-10-12 08:56] LABS: Color, Urine Yellow (Yellow); Glucose, Dipstick Normal (Normal); Ketone-Dipstick Negative (Negative); Leukocyte Esterase-Dipstick 500 /ul (Negative); Nitrite-Dipstick Negative (Negative); Occult Blood-Urine 10 /ul (Negative); Protein-Dipstick 30 mg/dl (Negative); Urine Bilirubin Dipstick Negative (Negative); Urine Clarity Sl. Cloudy (Clear); Urine Urobilinogen Normal (Normal)
== END ==
LOC: OLS.WHLTSB 13:45
PROVIDERS: PCP Internal Medicine; Visit Provider Nurse Practitioner Adult Health
DX: N39.0 Urinary tract infection, site not specified (principal)
CPT/HCPCS: 81002; 87077; 87086; 87088; 87186

== ENCOUNTER → 2023-11-03 | Outpatient (REF) | payer MEDICARE, MEDICAID, SELFPAY ==
[2023-11-03 08:34] LABS: Absolute Lymphocyte Count 2.08 X10^3/uL (0.83-4.51); Absolute Neutrophil Count 7.2 X10^3/uL (2.0-7.7); Basophil# 0.07 X10^3/uL; Basophil% 0.6 % (0-1); Eosinophil# 0.43 X10^3/uL; Eosinophils% 3.9 % (0-5); Hemoglobin 10.6 g/dL (12.0-15.0); Lymphocyte # 2.08 X10^3/ul (0.83-4.51); Lymphocyte % 18.8 % (19-41); Mean Corp Hgb Conc 33.1 g/dL (32-36); Mean Corpuscular Volume 90.7 fL (81-99); Mean Platelet Vol. 11.4 fl (6.2-12.0); Monocyte% 10.9 % (0-10); NRBC Flagged by Analyzer 0 % (0-5); Neutrophil # 7.19 X10^3/uL (2.7-7.7); Neutrophil % 65.1 % (47-70); Platelet Count 260 K/mm3 (150-450); RBC Distribution Width CV 13.4 % (11.6-14.6); RBC Distribution Width SD 44.4 fl (35.1-43.9); Red Blood Count 3.53 M/mm3 (4.2-5.4); White Blood Count 11.1 K/mm3 (4.4-11.0)
[2023-11-03 08:48] LABS: AST(SGOT) 23 U/L (15-37); Alanine Aminotransfer ALT/SGPT 20 U/L (13-56); Albumin, Serum 2.9 g/dL (3.2-5.0); Alkaline Phosphatase 48 U/L (45-117); Anion Gap 9 (5-15); BUN 47 mg/dL (7-18); BUN/Creat Ratio 25.4 RATIO (10-20); Calcium,Total 9.2 mg/dL (8.5-10.1); Chloride 98 mmol/L (98-107); Creatinine, Serum 1.85 mg/dL (0.55-1.02); EST Glomerular Filtration Rate 27 mL/min (>60); Est Glom Filt Rate - Afr Amer 33 mL/min (>60); Globulin 2.9 g/dL (2.2-4.2); Glucose 136 mg/dL (74-106); Potassium 4.4 mmol/L (3.5-5.1); Protein, Total 5.8 g/dL (6.4-8.2); Sodium Level 132 mmol/L (136-145)
== END ==
LOC: OLS.WHLTSB 05:00
PROVIDERS: PCP Internal Medicine; Visit Provider Nurse Practitioner Adult Health
DX: R11.10 Vomiting, unspecified (principal)
CPT/HCPCS: 36415; 80053; 85025

== ENCOUNTER → 2023-11-06 | Outpatient (REF) | payer MEDICARE, MEDICAID, SELFPAY ==
[2023-11-07 08:28] LABS: Color, Urine Yellow (Yellow); Glucose, Dipstick Normal (Normal); Ketone-Dipstick Negative (Negative); Leukocyte Esterase-Dipstick 500 /ul (Negative); Nitrite-Dipstick Negative (Negative); Occult Blood-Urine 25 /ul (Negative); Protein-Dipstick 100 mg/dl (Negative); Urine Bilirubin Dipstick Negative (Negative); Urine Clarity Cloudy (Clear); Urine Urobilinogen Normal (Normal)
== END ==
LOC: OLS.WHLTSB 20:00
PROVIDERS: PCP Internal Medicine; Visit Provider Internal Medicine
DX: R30.0 Dysuria (principal)
CPT/HCPCS: 81002; 87086; 87088

== ENCOUNTER → 2023-12-30 | Outpatient (REF) | payer MEDICARE, MEDICAID, SELFPAY | LOC: OLS.WHLTSB 15:00 | PROVIDERS: PCP Internal Medicine; Visit Provider Internal Medicine | DX: N39.0 Urinary tract infection, site not specified (principal) | CPT/HCPCS: 87086; 87088 ==

== ENCOUNTER → 2024-07-05 17:15 | Outpatient (REF) | payer MEDICARE, MEDICAID, SELFPAY ==
[2024-07-05 17:22] LABS: Color, Urine Yellow (Yellow); Glucose, Dipstick Normal (Normal); Ketone-Dipstick Negative (Negative); Leukocyte Esterase-Dipstick 500 /ul (Negative); Nitrite-Dipstick Negative (Negative); Occult Blood-Urine 10 /ul (Negative); Protein-Dipstick 30 mg/dl (Negative); Urine Bilirubin Dipstick Negative (Negative); Urine Clarity Clear (Clear); Urine Urobilinogen Normal (Normal); Urine pH 6.5 (5.0 - 8.0)
== END ==
LOC: OLS.WHLTSB 17:15
PROVIDERS: PCP Internal Medicine; Visit Provider Internal Medicine
DX: E11.9 Type 2 diabetes mellitus without complications (principal)
CPT/HCPCS: 81002; 87077; 87086; 87088